=== PATIENT | female | born 1935 | race Caucasian/White ===

== ENCOUNTER 2019-03-29 09:15 | Inpatient (IN) | payer MEDICARE, OTHER ==
[~2019-03-29] VITALS: Ht 152.4 cm; Wt 58.0 kg
[2019-03-29] MEDS: CALCIUM/VITAMIN D 500 MG TAB PO SCH ×2 (09:00→23:57)
[~2019-03-29 09:15] MED LIST: AMLO5TAB2 PO; ASPI1TAB PO; LOSA100T PO; REST0.05 OU; TRIA1OI EXT; ULTR50TA PO
[2019-03-29] MEDS ORDERED: ONDANSETRON 4MG/2ML VIAL (J2405) IV ONE (09:30)
[2019-03-29] MEDS: MORPHINE 2 MG/ML 1ML VIAL (J2270) IV PRN ×4 (09:49→19:06)
--- NOTE | 2019-03-29 10:16 | REP ---
Chest x-ray: Single AP view. History: Trauma. Comparison study: April 20, 2013. Findings: Monitoring electrodes are seen. Mediastinum is not widened. There is no evidence of pneumothorax or hydrothorax. The pleural angles are sharp. Mitral annular calcification is observed. Heart size is borderline unchanged. A small azygos lobe is noted incidentally. There is diffuse osteopenia. Impression: No acute disease. Electronically Signed by Brenton Montgomery MD 03/29/2019 10:07 A
--- NOTE | 2019-03-29 10:17 | REP ---
Pelvis right hip: Three views. History: Trauma. Comparison right hip radiographs are from August 23, 2014. Findings: AP view of the pelvis demonstrates a intramedullary [place] and femoral neck pin in the left hip from previous injury. There is diffuse osteopenia. There is an old appearing fracture of the superior pubic ramus on the right. No acute pelvic fracture is appreciated. No sacral fracture is seen. Two views of the right hip demonstrate a comminuted intertrochanteric fracture of the right proximal femur in varus. There is associated soft-tissue swelling. Impression: Comminuted intertrochanteric fracture of the right proximal femur in varus. Diffuse osteoporosis. Old healed superior pubic ramus fracture on the right. Electronically Signed by Brenton Montgomery MD 03/29/2019 10:08 A
[2019-03-29] MEDS ORDERED: LOPE-39 PO (11:03)
[2019-03-29] MEDS ORDERED: REST0.05 OU (11:03)
[2019-03-29] MEDS ORDERED: AMIL5TAB4 PO (11:03)
[2019-03-29] MEDS ORDERED: LOSA50TA5 PO (11:03)
[2019-03-29 11:05] LABS: BASO % 0.3 % (0.0-1.0); EOS % 0.3 % (0.0-3.0); HEMATOCRIT 32.5 % (36.0-47.0); HEMOGLOBIN 10.4 g/dl (12.0-15.5); LYMPH # 0.6 10^3/uL (1.5-5.0); LYMPH % 10.9 % (24.0-44.0); MEAN CORPUSCULAR HEMOGLOBIN 32.3 pg (27.0-33.0); MEAN CORPUSCULAR VOLUME 100.9 fl (80.0-96.0); MONO # 0.3 10^3/uL (0.0-0.8); MONO % 5.6 % (0.0-5.0); NEUTROPHILS # 4.7 10^3/uL (1.5-8.5); PLATELET COUNT, AUTOMATED 412 10^3/uL (150-450); RED BLOOD COUNT 3.22 10^6/uL (4.00-5.40); WHITE BLOOD COUNT 5.8 10^3/uL (4.0-10.0)
[2019-03-29] MEDS ORDERED: NS 1,000 ML IV SCH (11:15)
[2019-03-29] MEDS ORDERED: MORPHINE 2 MG/ML 1ML VIAL (J2270) IV PRN (11:15)
[2019-03-29 11:17] LABS: INR 1.18; PROTHROMBIN TIME 14.7 SECONDS (11.8-14.0)
[2019-03-29] MEDS ORDERED: KCL 20MEQ IN D5/0.45NS 1000ML 1,000 ML IV SCH (11:30)
[2019-03-29] MEDS ORDERED: NORCO, ANEXSIA 5/325MG TABLET (HYDROcodone/ACETAMINOPHEN) PO PRN (11:30)
[2019-03-29] MEDS ORDERED: ACETAMINOPHEN TAB 650MG DOSE (2X325MG) PO PRN ×2 (11:30→23:00)
[2019-03-29] MEDS ORDERED: MOM 30ML SUSPENSION UDC PO PRN (11:30)
[2019-03-29 11:36] LABS: ALBUMIN 3.8 GM/DL (3.2-5.2); ALT/SGPT 16 U/L (12-78); BILIRUBIN,TOTAL 0.4 MG/DL (0.2-1.0); BLOOD UREA NITROGEN 36 MG/DL (7-18); CALCIUM LEVEL 8.8 MG/DL (8.8-10.2); CARBON DIOXIDE LEVEL 26 MEQ/L (21-32); CHLORIDE LEVEL 104 MEQ/L (98-107); CREATININE FOR GFR 1.12 MG/DL (0.55-1.30); GLOMERULAR FILTRATION RATE 49.2 (>32); GLUCOSE, FASTING 156 MG/DL (70-100); POTASSIUM SERUM 4.6 MEQ/L (3.5-5.1); SODIUM LEVEL 139 MEQ/L (136-145); TOTAL PROTEIN 6.4 GM/DL (6.4-8.2)
--- NOTE | 2019-03-29 12:39 | REP ---
Right femur: Two views. History: Trauma. Comparison right hip radiographs August 23, 2014. Findings: Radiographs are overexposed and the soft tissues are not a valuable. The lateral view does not allow visualization of the patella because of exposure factors. No distal femoral fracture is seen. There is advanced diffuse osteopenia. Electronically Signed by Brenton Montgomery MD 03/29/2019 12:31 P
[2019-03-29 12:51] VITALS: BP 133/66
--- NOTE | 2019-03-29 12:51 | CR.PDOC ---
General Date of Consultation: Mar 29, 2019 Attending Physician: JOYCE ZHENG MD Consultation REASON FOR CONSULTATION/CHIEF COMPLAINT: R hip fracture. HISTORY OF PRESENT ILLNESS: Patient is an 83 y/o female community ambulator with no assistive devices who sustained a mechanical fall from standing height resulting in immediate R hip pain and inability to bear weight. She has a significant past history of a L intertroch fracture treated with CMN 15 years ago. She has some persistent lateral sided hip pain but otherwise is independently functioning in all ADLs and lives alone on a large property which she maintains herself. She denies any antecedent hip pain, chest pain, shortness of breath, headache, or dizziness prior to her fall. ALLERGIES: Please see below. HOME MEDICATIONS: Please see below. PAST MEDICAL HISTORY: 1. Hypertension. 2. CVA. 3. Bowel obstruction PAST SURGICAL HISTORY: 1. L hip CMN per HPI 2. Hysterectomy 3. Bladder repair FAMILY HISTORY: non contributory SOCIAL HISTORY: lives alone. Independent in all ADLs. Non smoker. Retired. CONSTITUTIONAL: No fevers, chills, or night sweats. HEENT: + glasses CARDIOVASCULAR: No chest pain, palpitations. RESPIRATORY: No cough, wheeze. MUSCULOSKELETAL: R hip pain per HPI. GASTROINTESTINAL: No nausea, vomiting, diarrhea. NEUROLOGICAL: No headache, numbness, burning sensations. PHYSICAL EXAMINATION: VITAL SIGNS: Please see below. GENERAL APPEARANCE: Well nourished female, appears stated age, no acute distress. HEENT: Normocephalic, atraumatic. RESPIRATORY: Non labored breathing. CARDIOVASCULAR: 2+ DP/PT pulses, BCR all digits RLE. EXTREMITIES: Focused exam of the R hip demonstrates no open wounds or abrasions. The hip is held in a flexed, externally rotated position. Patient is able to flex/extend toes and ankle. NEUROLOGICAL: Sensation and motor intact in RLE femoral, tibial, sural, saphenous, SPN, DPN distribution. Radiographs: Plain radiographs of the pelvis, right hip and right femur demonstrate a displaced intertrochanteric femur fracture ASSESSMENT: 83 y/o female with a reverse obliquity R intertrochanteric femur fr acture PLAN: I had a long discussion with the patient about the natural history of her injury. The risks, benefits, indications, and alternatives of operative and nonoperative management were discussed and I recommended surgical management with R hip cephalomedullary nail fixation. The risks of infection, nerve/blood vessel injury, thromboembolic event, nonunion, malunion, and hardware failure w ere discussed and the patient expressed understanding and provided written informed consent for R hip open versus closed reduction and cephalomedullary nail fixation. I counseled the patient that I will be her operating surgeon but her follow up care will be conducted by [facility]. She expressed understanding with this arrangement and agreed to proceed. Surgery will be today pending clearance. -NPO -2g IV Ancef chief concierge to OR Vital Signs/I&O Vital Signs Date Time Temp Pulse Resp B/P (MAP) Pulse Ox O2 Delivery O2 Flow Rate FiO2 03/29/19 12:01 98.0 82 20 150/87 (108) 98 Nasal Cannula 2.0 Laboratory Data Labs 24H Laboratory Tests 2 03/29/19 10:17: Immature Granulocyte % (Auto) 0.9, Neutrophils (%) (Auto) 82.0H, Lymphocytes (%) (Auto) 10.9L, Monocytes (%) (Auto) 5.6H, Eosinophils (%) (Auto) 0.3, Basophils (%) (Auto) 0.3, Neutrophils # (Auto) 4.7, Lymphocytes # (Auto) 0.6L, Monocytes # (Auto) 0.3, Eosinophils # (Auto) 0.0, Basophils # (Auto) 0.0, Nucleated Red B lood Cells % (auto) 0.0, Prothrombin Time 14.7H, Prothromb Time International Ratio 1.18, Anion Gap 9, Glomerular Filtration Rate 49.2, Calcium Level 8.8, Total Bilirubin 0.4, Aspartate Amino Transf (AST/SGOT) 18, Alanine Aminotransferase (ALT/SGPT) 16, Alkaline Phosphatase 52, Total Protein 6.4, Al bumin 3.8, Albumin/Globulin Ratio 1.46 CBC/BMP Laboratory Tests 03/29/19 10:17 Allergies Coded Allergies: No Known Drug Allergies (Verified Allergy, Unknown, 03/29/19) latex (Verified Allergy, Unknown, unknown, 03/29/19) Home Medications Scheduled Amiloride HCl (Amiloride HCl) 5 Mg Tablet, 5 MG PO QHS, (Reported) Losartan/Hydrochlorothiazide (Losartan-Hctz 50-12.5 mg Tab) 1 Each Tablet, 1 TAB PO QHS, (Reported) Scheduled PRN Cyclosporine (Restasis) 0.05% [place], 1 DROP OU BID PRN for DRY EYES, (Reported) Loperamide HCl (Imodium A-D) 2 Mg Capsule, 2 MG PO QHS PRN for DIARRHEA, (Reported) JOYCE ZHENG MD Mar 29, 2019 12:49
--- NOTE | 2019-03-29 13:08 | HPE ---
DATE OF ADMISSION: 03/29/2019 TIME: 11:30 a.m. CHIEF COMPLAINT: Right hip pain following a fall. HISTORY OF PRESENT ILLNESS: Mrs. Spring is an 83-year-old woman who had gone out to light an outside stove and as she was returning back into her home she slipped and fell on her right side. She developed acute pain and was brought to the emergency room by ambulance for further evaluation. Imaging studies done in the ER indicate she has a right intertrochanteric hip fracture and was referred for admission to the hospitalist service. The patient is otherwise, quite healthy. She has a past medical history of hypertension, as well as chronic heart murmur. She denies having any chest discomfort, orthopnea, presyncopal symptoms or angina over the ensuing days or weeks. She has not had any orthopnea, PND, leg symptoms, nor lower extremity swelling. ALLERGIES: 1. LATEX which causes rash. HOME MEDICATIONS: - amiloride 5 mg at bedtime - cyclosporin 0.05% both eyes (OU) twice a day as needed for dry eyes - loperamide 2 mg at bedtime as needed for diarrhea - losartan hydrochlorothiazide 50/12.5 at bedtime PAST MEDICAL HISTORY: Notable for: Hypertension. Dry eyes. PAST SURGICAL HISTORY: Notable for: Left hip fracture approximately 12 years ago. Hysterectomy with bladder suspension in the past. SOCIAL HISTORY: Patient lives at home. She does not use alcohol, tobacco or illicit drugs. Her daughter is her medical power of estate planning attorney. Code status is FULL CODE. FAMILY HISTORY: Notable for leukemia and stroke. REVIEW OF SYSTEMS: 12 systems reviewed with the patient, otherwise negative except what is mentioned in the HPI. She has a chronic heart murmur but has not had any symptoms of increasing fatigue, lower extremity swelling or chest discomfort. She also has what appears to be psoriasis on her bilateral extensor surfaces of her upper extremities. PHYSICAL EXAMINATION: Temperature is 98.1, pulse is 86, respirations 16, blood pressure 189/77, O2 sat is 97% on room air. General: The patient is alert and oriented times three. She lying in a supine position. She is complaining of pain. Her daughter is at the bedside. Her skin is warm to touch without any visible rash or pallor or jaundice. Her head is atraumatic, normocephalic. Her pupils are symmetric, reactive to light. Oropharynx is clear without exudate, erythema or thrush. Neck is supple. No audible carotid bruits. Trachea is midline. No palpable thyroid gland tenderness. Heart S1/S2. She has a grade 3/6 systolic murmur. PMI is located at the fifth intercostal space at the MCL. Lung sounds are appreciated in the anterior and lateral lung trammell and are without any rales, wheezing or rhonchi. She has symmetric chest wall rise. Abdomen is scaphoid, nontender, nondistended in appearance. She has active bowel sounds. Extremities are without any significant cyanosis, clubbing or edema. Her right lower extremity is externally rotated and shortened compared with her left lower extremity. She has palpable left hip tenderness. RELEVANT LABS: Coags are normal with an INR of 1.18, PT 14.7. White count is 5.8, hemoglobin 10.4, hematocrit 32.5, platelet count 412,000. Sodium 139, potassium 4.6, chloride 104, bicarb 26, anion gap is 9, BUN 36, creatinine 1.1, glucose 156, calcium is 8.8, total bilirubin is 0.4, AST is 18, ALT is 16, alkaline phosphatase 52, total protein 6.4, albumin is 3.8. EKG showed a normal sinus rhythm. IMAGING: Chest x-ray shows no acute disease. Hip x-ray shows comminuted intertrochanteric fracture of the right proximal femur in varus, diffuse osteoporosis, old healed superior pubic ramus fracture on the right. IMPRESSION: 1. Status post ground level fall with acute right intertrochanteric hip fracture. 2. Macrocytic anemia. 3. Hypertension. 4. Osteoporosis. 5. Chronic heart murmur. PLAN: The patient will be admitted to the general medical floor. From my standpoint the patient has low risk for intended non-elective for procedure and is medically optimized and may proceed with the surgery. She will continue on amiloride as well as losartan. Will hold her hydrochlorothiazide for now as it appears like she is a little dehydrated. The patient does have some macrocytic anemia and with her fall will check B12 and folate levels to ensure that she has no neuropathy associated with mineral deficits. The patient will be placed on IV morphine and [place] for pain control and will have a Cramer catheter placed. She will be started on calcium with vitamin D after we check vitamin D levels, based on imaging, which shows that she has osteoporosis. The patient will be a FULL CODE. She will be placed on sequential compression devices (SCD) and thromboembolic deterrent stockings (TEDS) for deep vein thrombosis (DVT) prophylaxis now. Postoperative DVT prophylaxis decision making will be left up to the orthopedic service. Dr. Hutton of orthopedics has been consulted by the ED and will see the patient. I will keep the patient nothing by mouth as there is a possibility that she could go to the OR later today. If not then we could start her on a low salt diet and keep her nothing by mouth after midnight for tomorrow if the schedule changes for her surgery.
[2019-03-29 14:00] VITALS: BP 131/64
[2019-03-29] MEDS: D5W/0.45% SODIUM CHLORIDE 1,000 ML IV SCH ×2 (15:37→23:41)
[2019-03-29 19:48] VITALS: BP 135/63
[2019-03-29] MEDS ORDERED: ceFAZolin SOD 2 GM in IV 1 EA IV SCH (20:00)
[2019-03-29] MEDS ORDERED: ceFAZolin 1GM INJ (J0690 PER 500MG) As Ordered ONE (20:25)
[2019-03-29] MEDS ORDERED: ROCURONIUM BROMIDE 50 MG/5 ML VIAL As Ordered ONE (20:30)
[2019-03-29] MEDS ORDERED: LIDOCAINE 2% INJ 100 MG/5 ML SDV (FOR ANES.) As Ordered ONE (20:30)
[2019-03-29] MEDS ORDERED: propofoL 200 MG/20 ML VIAL As Ordered ONE (20:30)
[2019-03-29] MEDS ORDERED: fentaNYL 100 MCG/2 ML INJECTION (J3010) As Ordered ONE (20:32)
[2019-03-29] MEDS ORDERED: dexameTHASONE 4 MG/ML 1ML VIAL (J1100) As Ordered ONE (20:32)
[2019-03-29] MEDS ORDERED: ONDANSETRON 4MG/2ML VIAL (J2405) As Ordered ONE (20:32)
[2019-03-29] MEDS ORDERED: ceFAZolin 2 GM/D5W 50 ML IV BAG (J0690 PER 500MG) As Ordered ONE (20:56)
[2019-03-29] MEDS ORDERED: aMILoride 5 MG TAB PO SCH (21:00)
[2019-03-29] MEDS ORDERED: ACETAMINOPHEN 1000MG 100ML IV BTL (OFIRMEV) (J0131 PER 10MG) As Ordered ONE (21:18)
[2019-03-29] MEDS ORDERED: PHENYLephrine HCL 500 MCG/5 ML (100MCG/ML) SYRINGE (J2370) As Ordered ONE (21:19)
[2019-03-29] MEDS ORDERED: SUGAMMADEX SODIUM 500 MG/5 ML VIAL (BRIDION) As Ordered ONE (21:33)
[2019-03-29] MEDS ORDERED: VASOPRESSIN INJ 20 UNITS/ML VIAL As Ordered ONE (22:18)
[2019-03-29] MEDS ORDERED: traMADol 50 MG TAB PO PRN (23:00)
[2019-03-29 23:35] VITALS: BP 118/53
[2019-03-29] MEDS: DOCUSATE SODIUM 100 MG CAP PO SCH (23:57)
[2019-03-29 23:59] VITALS: BP 119/52
[2019-03-30] VITALS (12 sets, daily range): BP systolic 109–138; BP diastolic 47–90
[2019-03-30] MEDS ORDERED: traMADol 50 MG TAB PO PRN (00:45)
[2019-03-30] MEDS ORDERED: ceFAZolin SOD 2 GM in IV 1 EA IV ONE (06:00)
[2019-03-30] MEDS: ceFAZolin SOD 2 GM in IV 1 EA IV SCH ×2 (06:18→15:27)
--- NOTE | 2019-03-30 06:32 | REP ---
Right femur four views: There is gamma nail fixation of the right hip and femur with the fracture and hardware are in satisfactory positions alignment. The Electronically Signed by Ten Trevizo MD 03/30/2019 06:25 A
--- NOTE | 2019-03-30 06:32 | REP ---
Right hip intraoperative fluoroscopic views: A series of 10 intraoperative fluoroscopic views are performed during internal fixation of the right hip. The final films demonstrate gamma nail fixation of the right hip and femur with the fracture and hardware are in satisfactory positions alignment. Electronically Signed by Ten Trevizo MD 03/30/2019 06:24 A
[2019-03-30 07:13] LABS: ALBUMIN 2.8 GM/DL (3.2-5.2); BILIRUBIN,TOTAL 0.4 MG/DL (0.2-1.0); CALCIUM LEVEL 8.6 MG/DL (8.8-10.2); CREATININE FOR GFR 1.28 MG/DL (0.55-1.30); GLOMERULAR FILTRATION RATE 42.2 (>32); POTASSIUM SERUM 5.2 MEQ/L (3.5-5.1)
--- NOTE | 2019-03-30 07:45 | IPNPDOC ---
Subjective Date Seen The patient was seen on 03/30/19. Subjective Chief Complaint/HPI No acute events following surgery. Pain controlled, mostly occurs with activity. Not hungry this morning. Megan is motivated to work with PT Objective Physical Examination General Exam: Positive: Alert, No Acute Distress Eye Exam: Positive: Conjunctiva & lids normal; Negative: Sclera icteric ENT Exam: Positive: Atraumatic, Mucous membr. moist/pink, Pharynx Normal Neck Exam: Positive: Supple; Negative: JVD, thyromegaly Chest Exam: Positive: Clear to auscultation, Normal air movement Heart Exam: Positive: Rate Normal, Regular Rhythm, Normal S1, Normal S2, Murmurs (chronic 3/6 systolic murmur unchanged); Negative: Rubs Abdomen Exam: Positive: Normal bowel sounds, Soft; Negative: Tenderness, Hepatospenomegaly Extremity Exam: Positive: Normal pulses; Negative: Clubbing, Cyanosis, Edema Skin Exam: Positive: Nl turgor and temperature (operative wound c/d/i); Negative: Rash, Breakdown Neuro Exam: Positive: Normal Speech Psych Exam: Positive: Mental status NL, Mood NL Assessment /Plan Assessment # POD # 1 s/p right hip fx repair - mgmt per ortho - xarelto 10 mg daily for DVT prophylaxis - PT/OT - discharge planning - check CBC this am # HTN - controlled on home med # Chronic systolic murmur - stable Plan/VTE VTE Prophylaxis Ordered?: Yes VTE Exclusion Mechanical Proph: N/A:VTE Prophy Ordered VTE Exclusion Pharmacological: N/A:VTE Prophy Ordered VS, I&O, 24H, Fishbone Vital Signs/I&O Vital Signs Date Time Temp Pulse Resp B/P (MAP) Pulse Ox O2 Delivery O2 Flow Rate FiO2 03/30/19 06:54 96.3 89 18 111/48 (69) 98 Nasal Cannula 2.0 I&O- Last 24 Hours up to 6 AM 03/30/19 06:00 Intake Total 2680 ml Output Total 1075 ml Balance 1605 ml Laboratory Data 24H LABS Laboratory Tests 2 03/29/19 10:17: Immature Granulocyte % (Auto) 0.9, Neutrophils (%) (Auto) 82.0H, Lymphocytes (%) (Auto) 10.9L, Monocytes (%) (Auto) 5.6H, Eosinophils (%) (Auto) 0.3, Basophils (%) (Auto) 0.3, Neutrophils # (Auto) 4.7, Lymphocytes # (Auto) 0.6L, Monocytes # (Auto) 0.3, Eosinophils # (Auto) 0.0, Basophils # (Auto) 0.0, Nucleated Red Blood Cells % (auto) 0.0, Prothrombin Time 14.7H, Prothromb Time International Ratio 1.18, Anion Gap 9, Glomerular Filtration Rate 49.2, Calcium Level 8.8, Total Bilirubin 0.4, Aspartate Amino Transf (AST/SGOT) 18, Alanine Aminotransferase (ALT/SGPT) 16, Alkaline Phosphatase 52, Total Protein 6.4, Albumin 3.8, Albumin/Globulin Ratio 1.46 03/30/19 05:51: Anion Gap 6L, Glomerular Filtration Rate 42.2, Calcium Level 8.6L, Total Bilirubin 0.4, Aspartate Amino Transf (AST/SGOT) 15, Alanine Aminotransferase (ALT/SGPT) 17, Alkaline Phosphatase 41L, Total Protein 5.0#L, Albumin 2.8#L, Albumin/Globulin Ratio 1.27 CBC/BMP Laboratory Tests 03/29/19 10:17 03/30/19 05:51 NIRMAL LANG MD Mar 30, 2019 07:43
[2019-03-30] MEDS ORDERED: XARE10TA PO (07:47)
[2019-03-30] MEDS ORDERED: ACET-683 PO (07:47)
[2019-03-30] MEDS ORDERED: TRAM50TA2 PO (07:47)
[2019-03-30 08:02] LABS: HEMATOCRIT 23.7 % (36.0-47.0); MEAN CORPUSCULAR HEMOGLOBIN 32.5 pg (27.0-33.0); MEAN CORPUSCULAR HGB CONC 31.6 g/dl (32.0-36.5); MEAN CORPUSCULAR VOLUME 102.6 fl (80.0-96.0); PLATELET COUNT, AUTOMATED 439 10^3/uL (150-450); RED BLOOD COUNT 2.31 10^6/uL (4.00-5.40); WHITE BLOOD COUNT 4.8 10^3/uL (4.0-10.0)
[2019-03-30 08:08] LABS: HEMOGLOBIN 7.5 g/dl (12.0-15.5)
--- NOTE | 2019-03-30 08:10 | RO ---
DATE OF PROCEDURE: 03/29/2019 PREOPERATIVE DIAGNOSIS: Right reverse obliquity intertrochanteric femur fracture. POSTOPERATIVE DIAGNOSIS: Right reverse obliquity intertrochanteric femur fracture. PROCEDURE PERFORMED: Right proximal femur open reduction cephalomedullary nail fixation. SURGEON: Dr. Keith Hutton HIM ANALYST: None. ANESTHESIA PROVIDER: Dr. Garcia ANESTHESIA: General endotracheal anesthesia. ESTIMATED BLOOD LOSS: 250 mL. ANTIBIOTICS: 2 grams Ancef given within 1 hour of incision. IMPLANTS USED: Synthes TFN-ADVANCED 11 mm x 380 mm nail with a 95 mm helical blade and 52 and 48 mm x 5mm interlocking distal interlocking screws. MATERIALS SENT TO LAB: None COMPLICATIONS: None. INDICATIONS FOR PROCEDURE: Megan Spring is an 83-year-old community ambulator with no assistive devices who sustained a mechanical fall from standing height resulting in a displaced reverse obliquity intertrochanteric femur fracture. She was admitted to the hospitalist service for medical optimization and was medically optimized for surgery. I discussed with her the nature of her injury and the risks, benefits, indications, and alternatives of operative versus nonoperative management and recommended right hip cephalomedullary nail fixation. I counseled her that I will be her operating surgeon. Her followup care will be conducted by [facility]. She expressed understanding of this arrangement and provided written informed consent for right proximal femur open versus closed reduction and internal fixation. INTRAOPERATIVE FINDINGS: Reverse obliquity intertrochanteric femur fracture that was anatomically reduced and stable after fixation. DESCRIPTION OF PROCEDURE: The patient was positively identified in the preop holding area where the surgical site was marked. She was then brought to the operating room where she was placed under general endotracheal anesthesia. She was positioned supine on the fracture table with all bony prominences appropriately padded. SCD was placed on the nonoperative extremity for DVT prophylaxis. I obtained a provisional reduction using the fracture table. After confirming reduction using C-arm fluoroscopy, she was then prepped and draped in the usual sterile fashion. A final time out was performed. I made a 4 cm incision proximal and posterior to the tip of the greater trochanter. I dissected through skin and subcutaneous tissue. I introduced the 3.2 mm guidewire on the tip of the greater trochanter and centered on lateral imaging and advanced it to the level of the lesser trochanter. I then made an accessory lateral incision and introduced a bone hook and a ball spike pusher to obtain anatomic reduction of fracture prior to opening reaming. While the fracture reduction was maintained, I introduced the opening reamer to the level of the lesser trochanter. I then removed the reamer and introduced the ball-tip guidewire down to the level of the superior pole of the patella centered on the knee in AP and lateral fluoroscopic imaging. I then measured the length of the device and elected to place a 380 mm nail. I made a single pass with the 12.5 mm end cutting reamer, followed by placement of the nail to an appropriate depth. Then using the accessory lateral incision that was used for the reduction maneuver, I introduced the guide for the helical blade. Another additional 3.2 mm guidewire was placed centered on the femoral neck on AP and lateral fluoroscopic imaging for placement of the helical blade. It was then measured and elected to place a 95 mm helical blade. I reamed and inserted the blade in standard fashion. I confirmed that there was no intra-articular penetration of implants. I then proceeded to lock the nail to create a fixed angle construct given the reverse oblique nature of the fracture. I then placed two distal interlocking screws using standard perfect [place] technique through individual stab incisions. After this was completed, I took final images of the knee and hip confirming adequate placement of all hardware and anatomic reduction of the fracture. After this was completed, final images were taken. I then thoroughly irrigated the wounds with just normal saline and they were closed in layers. The proximal two incisions were closed with #2-0 Vicryl for the subcutaneous layer in a buried interrupted fashion and lorenzo for the skin. The stab incisions for the distal interlocking screws were closed with lorenzo. Sterile dressings were applied and this ended the procedure. I was present and scrubbed in for all portions of the case. POSTOPERATIVE PLAN: She will return to the hospital floor. She will ne weightbearing as tolerated to the right lower extremity. She will be on Xarelto for DVT prophylaxis and she will be discharged by the hospitalist service when criteria are met. TYRON
[2019-03-30] MEDS: MIRALAX *UNIT DOSE* 17GM PACKET PO SCH (08:49)
[2019-03-30] MEDS: DOCUSATE SODIUM 100 MG CAP PO SCH ×2 (08:49→22:06)
[2019-03-30] MEDS: CALCIUM/VITAMIN D 500 MG TAB PO SCH ×2 (08:49→22:06)
[2019-03-30] MEDS ORDERED: ACETAMINOPHEN TAB 650MG DOSE (2X325MG) PO ONE (09:00)
[2019-03-30] MEDS ORDERED: diphenhydrAMINE 25 MG CAP PO ONE (09:00)
[2019-03-30 11:01] LABS: FOLATE > 24.0 NG/ML (>5.4); TOTAL 25(OH) VITAMIN D 38.9 NG/ML (30.0-100.0); VITAMIN B12 LEVEL 633 PG/ML (247-911)
[2019-03-30] MEDS: NS 1,000 ML IV SCH (15:27)
[2019-03-30] MEDS ORDERED: RIVAROXABAN 10 MG TAB (XARELTO) PO SCH (18:00)
[2019-03-30 18:17] LABS: HEMATOCRIT 28.7 % (36.0-47.0); HEMOGLOBIN 9.3 g/dl (12.0-15.5); MEAN CORPUSCULAR HEMOGLOBIN 31.5 pg (27.0-33.0); MEAN CORPUSCULAR HGB CONC 32.4 g/dl (32.0-36.5); MEAN CORPUSCULAR VOLUME 97.3 fl (80.0-96.0); PLATELET COUNT, AUTOMATED 416 10^3/uL (150-450); RED BLOOD COUNT 2.95 10^6/uL (4.00-5.40); WHITE BLOOD COUNT 6.1 10^3/uL (4.0-10.0)
[2019-03-30] MEDS ORDERED: LOSARTAN 50 MG TAB PO SCH (21:00)
[2019-03-31] MEDS: traMADol 50 MG TAB PO PRN ×2 (01:18→09:04)
[2019-03-31 02:09] LABS: HEMATOCRIT 25.9 % (36.0-47.0); HEMOGLOBIN 8.5 g/dl (12.0-15.5); MEAN CORPUSCULAR HEMOGLOBIN 31.3 pg (27.0-33.0); MEAN CORPUSCULAR HGB CONC 32.8 g/dl (32.0-36.5); MEAN CORPUSCULAR VOLUME 95.2 fl (80.0-96.0); PLATELET COUNT, AUTOMATED 327 10^3/uL (150-450); RED BLOOD COUNT 2.72 10^6/uL (4.00-5.40); WHITE BLOOD COUNT 5.3 10^3/uL (4.0-10.0)
--- NOTE | 2019-03-31 05:54 | ECGEPIP ---
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
[2019-03-31 06:31] LABS: HEMOGLOBIN A1c 5.1 %
[2019-03-31 06:39] LABS: CALCIUM LEVEL 8.7 MG/DL (8.8-10.2); CREATININE FOR GFR 1.25 MG/DL (0.55-1.30); GLOMERULAR FILTRATION RATE 43.4 (>32); POTASSIUM SERUM 4.9 MEQ/L (3.5-5.1)
[2019-03-31 06:41] VITALS: BP 135/56
[2019-03-31] MEDS ORDERED: MS C15TA8 PO (08:33)
[2019-03-31] MEDS ORDERED: MORPHINE 15 MG SA TAB PO SCH (09:00)
[2019-03-31] MEDS: MIRALAX *UNIT DOSE* 17GM PACKET PO SCH (09:05)
[2019-03-31] MEDS: DOCUSATE SODIUM 100 MG CAP PO SCH (09:05)
[2019-03-31] MEDS: CALCIUM/VITAMIN D 500 MG TAB PO SCH (09:05)
[2019-03-31] MEDS: NS 1,000 ML IV SCH (09:05)
[2019-03-31 10:03] LABS: HEMATOCRIT 26.6 % (36.0-47.0); HEMOGLOBIN 8.7 g/dl (12.0-15.5); MEAN CORPUSCULAR HEMOGLOBIN 31.4 pg (27.0-33.0); MEAN CORPUSCULAR HGB CONC 32.7 g/dl (32.0-36.5); PLATELET COUNT, AUTOMATED 362 10^3/uL (150-450); RED BLOOD COUNT 2.77 10^6/uL (4.00-5.40); WHITE BLOOD COUNT 5.4 10^3/uL (4.0-10.0)
[2019-03-31] MEDS ORDERED: ANAG0.5C2 PO (17:13)
--- NOTE | 2019-04-01 10:05 | DSES ---
DATE OF ADMISSION: 03/29/2019 DATE OF DISCHARGE: 03/31/2019 PRINCIPAL EXAMINER: Dr. Hutton, orthopedic surgery. PROCEDURES DURING ADMISSION: Right intramedullary rodding of the femur on 03/30/2019. DISCHARGE DIAGNOSES: 1. Ground level fall. 2. Acute right intertrochanteric hip fracture. 3. Macrocytic anemia. 4. Hypertension. 5. Osteoporosis. 6. Chronic heart murmur. DISCHARGE MEDICATIONS: - acetaminophen 1 gram by mouth every 8 hours as needed for back pain - morphine 15 mg by mouth twice a day as needed, maximum daily dose of two tablets daily - Xarelto 10 mg daily - Tramadol one to two tablets every 4 hours as needed for pain - amiloride 5 mg at night - Restasis one drop OU twice a day as needed for dry eyes - loperamide 2 mg at night as needed for diarrhea - losartan/hydrochlorothiazide 50/12.5 mg one tablet at night HOSPITAL COURSE: This is an 83-year-old female who had a ground level fall at home sustaining a right hip fracture, status post intramedullary rodding by Dr. Hutton, orthopedic surgery. The patient was cleared for surgery with postoperative prophylaxis given using Xarelto. The patient had bowel regimen and pain was controlled on Ultram and [place]. She was discharged in stable condition to acute rehabilitation unit. PHYSICAL EXAMINATION: On discharge: VITAL SIGNS: Temperature 98, pulse 103, respiratory rate 15, blood pressure 135/56, 94% on room air. GENERAL: The patient is in no respiratory distress. Able to speak in full sentences. LUNGS: Clear to auscultation. No wheezing, rales or rhonchi. HEART: S1, S2. Sinus rhythm. 3/6 systolic ejection murmur. ABDOMEN: Soft, nontender, nondistended. Positive bowel sounds times four quadrants. EXTREMITIES: Dorsalis pedis and posterior tibialis intact. Postoperative right hip. SKIN: Warm, dry, well perfused, pink in color. LABORATORY DATA: On discharge: White count 5.4, hemoglobin 8.7, hematocrit 26.6, platelet count 362. Sodium 134, potassium 4.9, chloride 103, bicarbonate 25, BUN 32, creatinine 1.25, glucose 130, A1/c of 5.1. IMAGING STUDIES: Femoral x-ray on 03/29/2019 showed Gamma nail fixation of the right hip and femur with hardware seen in satisfactory alignment. Hip x-ray on 03/29/2019 hardware in satisfactory position, Gamma nail fixation of right hip and femur fracture and hardware. Chest x-ray on 03/29/2019 showed no acute disease. Time spent on discharge: 30 minutes.
== END 2019-03-31 14:35 | DRG 481 ==
LOC: EDBD 09:15 → M ED 09:15 → M ED INP 11:17 → ENRESERV 11:45 → M MS5PR 12:37 → M ED INP 15:11 → M MS5PR 15:16
PROVIDERS: ADMIT Internal Medicine; ATTEND General Practice
PROC: 0QS604Z Reposition Right Upper Femur with Internal Fixation Device, Open Approach (ICD-10-PCS; principal; 2019-03-29 19:00)
DX: S72.141A Displaced intertrochanteric fracture of right femur, initial encounter for closed fracture (principal); D69.3 Immune thrombocytopenic purpura; D62 Acute posthemorrhagic anemia; Z91.040 Latex allergy status; Z79.899 Other long term (current) drug therapy; I10 Essential (primary) hypertension; Z90.79 Acquired absence of other genital organ(s); D53.9 Nutritional anemia, unspecified; M81.0 Age-related osteoporosis without current pathological fracture; R01.1 Cardiac murmur, unspecified; W01.0XXA Fall on same level from slipping, tripping and stumbling without subsequent striking against object, initial encounter; Y92.009 Unspecified place in unspecified non-institutional (private) residence as the place of occurrence of the external cause; Z79.01 Long term (current) use of anticoagulants; E87.5 Hyperkalemia

== ENCOUNTER 2019-03-31 11:10 | Inpatient (IN) | payer MEDICARE ==
[~2019-03-31] VITALS: Ht 167.6 cm; Wt 62.8 kg
[~2019-03-31 11:10] MED LIST changes: +ACET-683 PO; +AMIL5TAB4 PO; +LOPE-39 PO; +LOSA50TA5 PO; +MS C15TA8 PO; +TRAM50TA2 PO; +XARE10TA PO
[2019-03-31 14:40] VITALS: BP 157/69
[2019-03-31] MEDS ORDERED: traMADol 50 MG TAB PO PRN ×2 (16:30→21:00)
[2019-03-31] MEDS ORDERED: MOM 30ML SUSPENSION UDC PO PRN (16:30)
[2019-03-31] MEDS: RIVAROXABAN 10 MG TAB (XARELTO) PO SCH (17:13)
[2019-03-31] MEDS ORDERED: ANAG0.5C2 PO (17:13)
[2019-03-31] MEDS ORDERED: PILL CUTTER 1 EACH XX PRN (17:30)
[2019-03-31 20:00] VITALS: BP 149/65
[2019-03-31] MEDS: MORPHINE 15 MG SA TAB PO SCH (21:00)
[2019-03-31] MEDS: LIDOCAINE 5% (LIDODERM) PATCH TD SCH (21:14)
[2019-03-31] MEDS: OYSTER SHELL CALCIUM 500 MG TAB PO SCH (21:14)
[2019-03-31] MEDS: ACETAMINOPHEN 500 MG TAB PO SCH (21:15)
[2019-03-31] MEDS: DOCUSATE SODIUM 100 MG CAP PO SCH (21:15)
[2019-03-31] MEDS: SENNA 8.6 MG TAB (SENOKOT) PO SCH (21:15)
[2019-04-01 06:00] VITALS: BP 149/66
[2019-04-01 07:26] LABS: BASO % 0.3 % (0.0-1.0); EOS # 0.4 10^3/uL (0.0-0.5); HEMOGLOBIN 9.1 g/dl (12.0-15.5); LYMPH # 1.4 10^3/uL (1.5-5.0); LYMPH % 23.7 % (24.0-44.0); MEAN CORPUSCULAR HEMOGLOBIN 32.3 pg (27.0-33.0); MEAN CORPUSCULAR HGB CONC 33.7 g/dl (32.0-36.5); MEAN CORPUSCULAR VOLUME 95.7 fl (80.0-96.0); MONO # 0.4 10^3/uL (0.0-0.8); MONO % 6.9 % (0.0-5.0); NEUTROPHILS # 3.7 10^3/uL (1.5-8.5); NEUTROPHILS % 62.8 % (36.0-66.0); PLATELET COUNT, AUTOMATED 453 10^3/uL (150-450); RED BLOOD COUNT 2.82 10^6/uL (4.00-5.40); WHITE BLOOD COUNT 5.8 10^3/uL (4.0-10.0)
[2019-04-01 08:00] LABS: ALBUMIN 2.8 GM/DL (3.2-5.2); ALT/SGPT 13 U/L (12-78); BILIRUBIN,TOTAL 0.8 MG/DL (0.2-1.0); BLOOD UREA NITROGEN 22 MG/DL (7-18); CALCIUM LEVEL 8.7 MG/DL (8.8-10.2); CARBON DIOXIDE LEVEL 28 MEQ/L (21-32); CHLORIDE LEVEL 101 MEQ/L (98-107); CREATININE FOR GFR 0.93 MG/DL (0.55-1.30); GLOMERULAR FILTRATION RATE > 60.0 (>32); GLUCOSE, FASTING 115 MG/DL (70-100); POTASSIUM SERUM 4.6 MEQ/L (3.5-5.1); SODIUM LEVEL 135 MEQ/L (136-145); TOTAL PROTEIN 5.9 GM/DL (6.4-8.2)
[2019-04-01] MEDS: OYSTER SHELL CALCIUM 500 MG TAB PO SCH ×2 (08:41→21:30)
[2019-04-01] MEDS: DOCUSATE SODIUM 100 MG CAP PO SCH ×2 (08:41→21:29)
[2019-04-01] MEDS: MORPHINE 15 MG SA TAB PO SCH (08:41)
[2019-04-01] MEDS: hydroCHLOROthiazide 25 MG TAB PO SCH (08:41)
[2019-04-01] MEDS: ACETAMINOPHEN 500 MG TAB PO SCH ×3 (08:41→21:28)
[2019-04-01] MEDS: PANTOPRAZOLE 40MG TAB (PROTONIX) PO SCH (08:41)
[2019-04-01] MEDS: **NOTE PATIENT COMMENT** MISC XX SCH (08:42)
[2019-04-01] MEDS: LOSARTAN 25 MG TAB PO SCH (08:42)
[2019-04-01] MEDS ORDERED: aMILoride 5 MG TAB PO SCH (09:00)
[2019-04-01] MEDS ORDERED: oxyCODONE 5MG TAB PO PRN (11:15)
[2019-04-01] MEDS: ONDANSETRON 4 MG ORAL DISINTEGRATING TAB (Q0162 PER 1MG) PO PRN (11:41)
[2019-04-01] MEDS: METOPROLOL TART 12.5 MG PER 1/2 TAB PO SCH ×3 (11:41→21:27)
[2019-04-01] MEDS: oxyCODONE 5MG TAB PO SCH ×3 (11:43→21:29)
[2019-04-01 14:00] VITALS: BP 140/63
--- NOTE | 2019-04-01 14:39 | HPEPDOC ---
Software Developer Intern Note DATE OF ADMISSION:03/31/19 DATE OF SERVICE: 03/31/19 TIME OF ADMISSION: Please refer to physician's admission order. SOURCE OF ADMISSION INFORMATION: [facility] records and patient CHIEF COMPLAINT: hip fracture HISTORY OF PRESENT ILLNESS: 83F pmh HTN, heart murmur, thrombocythemia, left hip surgery 2006 who fell at home onto her right side and presented to [facility] ED on 03-29-19 with difficulty walking. Hip Xray showed, Comminuted intertrochanteric fracture of the right proximal femur in varus. Diffuse osteoporosis. Old healed superior pubic ramus fracture on the right. She was evaluated by orthopedics who performed an ORIF on 03-29-19 with post-op anemia requiring blood transfusion. Patient had considerable pain post-operatively and was started on long acting Morphine. She was evaluated by therapy, found to be well below her prior level of function and deemed appropriate for discharge to ARU on 03-31-19. On initial eval patient reports she is constipated, although usually she takes Imodium for chronic loose stools. She also reports she does not take Amiloride, but instead takes Anagrelide for her thrombocythemia. She is concerned about having any pain and is hoping to take pain medication around the clock like she did with her hip surgery in 2006. She expressed understanding that there was no guarantee she would have no pain, that she would need to work through some of it in order to get up functioning safely. REVIEW OF SYSTEMS: The following is a completed review of systems and has been reviewed. Review of systems otherwise unremarkable. PAIN: Patient self reports right hip pain EYES: No recent vision changes EARS, NOSE, & THROAT: No throat pain, or dysphagia, or rhinorrhea CARDIOVASCULAR: Denies chest pain or palpitations PULMONARY: Denies shortness of breath GASTROINTESTINAL: + constipation GENITOURINARY: denies dysuria MUSCULOSKELETAL: right hip fracture NEUROLOGICAL:no focal tremor or seizure activity HEMATOLOGICAL: +thrombocythemia SKIN: right hip incision PSYCHIATRIC: Unremarkable All other review of systems found to be negative. PAST MEDICAL HISTORY: as per HPI PAST SURGICAL HISTORY: per HPI and Hysterectomy with bladder suspension ALLERGIES: Please see below. MEDICATIONS: Please see below. FAMILY HISTORY: Leukemia and stroke SOCIAL HISTORY: no etoh/illicit drugs/smoking DIET: low sodium PHYSICAL EXAMINATION: VITAL SIGNS: Please see below. GENERAL: Pleasant and cooperative. No acute distress. thin, +sedated HEENT: PERRL. Extraocular movements intact. Clear conjunctiva CARDIOVASCULAR: Regular rate and rhythm. +systolic murmur, rubs, or gallops LUNGS: Clear to auscultation bilaterally. No wheezes. No rhonchi ABDOMEN: Soft, nontender, nondistended. Positive bowel sounds. Normal active bowel sounds NEUROLOGICAL: Alert and oriented times three. Cranial nerves II through XII grossly intact. Sensation grossly intact EXTREMITIES: 5\5 strength bilateral upper extremities. 5\5 strength right ankle PF, DF and EHL extension (limited due to surgery). 5/5 strength in left lower extremity. (-) Homans bilat (+) RLE edema SKIN: right hip incision with scant serous drainage, mild swelling, no induration LABORATORY DATA: Please see below. IMAGING: Imaging documentation personally reviewed by record FUNCTIONAL STATUS: Premorbid: Independent with all activities of daily life as well as mobility On Admission: CG x 2ft ambulating with RW, Min-Mod for functional transfers, dressing, bed mobility GOALS: [place] ambulating community distances, stairs, functional transfers, dressing, bathing, ASSESSMENT:83-year-old F with past medical history of HTN and thrombocythemia who presents status post fall with right hip fracture PLAN: 1. Rehab:- PT/OT advance gait and ADl training, strengthen/stretch/maintain ROM all 4 limbs 2. Neuro: no known hx 3. Cardiac: HTN c/u losartan and HCTZ, patient with hyperkalemia on inpatient side, will lower losartan dosing and icrease HCTZ for optimal BP control- medicine consulted to assist in management -+systolic murmur, patient without recent ECHO on file and no close cardiology follow-up- will refer on d/c 4. Resp: encourage incentive spirometry and monitor for infection 5. Heme: hx of thrombocythemia- med rec error recognized and corrected with pharmacy, patient is NOT on Amiloride (did not receive this medication at any time during hospital stay), but has been on Anagrelide, patient's family will bring in this medication -post-op anemia improved s/p transfusion, monitor for further blood loss 6. GI ppx: protonix 7. DVT ppx: Xarelto 8. Ortho: s/p right hip ORIF, WBAT- consulted to assist in management 9. Pain: c/u morphine 15mg BID, tramadol 25mg q8h prn pain (hold for sedation) 10. Dispo: TBD POST ADMISSION PHYSICIAN EVALUATION: Medical and functional status: Description of medical status, medical assessment: As above. Rehabilitation diagnosis and current and prior cold morbid medical conditions as above. Risk of complications and plans to mitigate them as above. Description of functional status current status is as above. Prior status as above. Status compared to preadmission: There are no clinically significant differences between the patient's current status and the information described on the preadmission screening document. Treatment plan anticipated: Treatment plan is as described above. Required disciplines including physical therapy, occupational therapy, others as noted above. Intensity of services:3 hours a day, 6 days a week. Special considerations: There are no specific special or safety considerations that would likely preclude immediate implementation of an intensive rehabilitation program or subsequently influence the plan of care ATTESTATION: Considering all the information above, it is my best judgment that this patient requires intensive rehabilitation therapy as described above and an inpatient hospital environment due to the complexity of nursing, medical, and rehabilitation needs required by the patient. Furthermore, this patient can reasonably be expected to participate in an benefit from an inpatient rehabilitation stay with an interdisciplinary team approach to the delivery of rehabilitation care under the direction and supervision of rehabilitation physician PROGNOSIS: Excellent ESTIMATED LENGTH OF STAY:14-18 days. PROJECTED DISCHARGE DESTINATION: Home with family support and any durable medical equipment required to increase functional safety and mobility. TIME SPENT COUNSELING AND COORDINATING INITIAL CARE: Greater than 70 minutes. Vital Signs Vital Sign - Last 24 Hours 03/31/19 03/31/19 03/31/19 04/01/19 14:40 20:00 21:00 02:50 Temp 98.5 98.4 Pulse 104 104 Resp 20 18 16 16 B/P (MAP) 157/69 (98) 149/65 (93) Pulse Ox 94 94 O2 Delivery Room Air Room Air 04/01/19 04/01/19 04/01/19 04/01/19 03:22 06:00 08:41 11:43 Temp 97.9 Pulse 103 Resp 18 20 16 16 B/P (MAP) 149/66 (93) Pulse Ox 95 O2 Delivery Room Air 04/01/19 12:25 Resp 18 Laboratory Data CBC/BMP Laboratory Tests 04/01/19 06:52 Labs 24H Laboratory Tests 2 04/01/19 06:52: Immature Granulocyte % (Auto) 0.3, Neutrophils (%) (Auto) 62.8, Lymphocytes (%) (Auto) 23.7L, Monocytes (%) (Auto) 6.9H, Eosinophils (%) (Auto) 6.0H, Basophils (%) (Auto) 0.3, Neutrophils # (Auto) 3.7, Lymphocytes # (Auto) 1.4L, Monocytes # (Auto) 0.4, Eosinophils # (Auto) 0.4, Basophils # (Auto) 0.0, Nucleated Red Blood Cells % (auto) 0.0, Anion Gap 6L, Glomerular Filtration Rate > 60.0, Calcium Level 8.7L, Total Bilirubin 0.8#, Aspartate Amino Transf (AST/SGOT) 10, Alanine Aminotransferase (ALT/SGPT) 13, Alkaline Phosphatase 50, Total Protein 5.9L, Albumin 2.8L, Albumin/Globulin Ratio 0.90L Home Medications Scheduled Anagrelide HCl (Anagrelide HCl) 0.5 Mg Capsule, 1.5 MG PO QHS, (Reported) Losartan/Hydrochlorothiazide (Losartan-Hctz 50-12.5 mg Tab) 1 Each Tablet, 1 TAB PO QHS, (Reported) Morphine Sulfate (Ms Contin) 15 Mg Tablet.er, 1 TAB PO BID Rivaroxaban (Xarelto) 10 Mg Tablet, 10 MG PO DAILY Scheduled PRN Acetaminophen (Acetaminophen) 500 Mg Tablet, 1,000 MG PO Q8H PRN for BACK PAIN Cyclosporine (Restasis) 0.05% Droperette, 1 DROP OU BID PRN for DRY EYES, (Reported) Loperamide HCl (Imodium A-D) 2 Mg Capsule, 2 MG PO QHS PRN for DIARRHEA, (Reported) Tramadol HCl (Tramadol HCl) 50 Mg Tablet, 1-2 TAB PO Q4H PRN for PAIN Allergies Coded Allergies: No Known Drug Allergies (Verified Allergy, Unknown, 03/29/19) latex (Verified Allergy, Unknown, unknown, 03/29/19) A-FIB/CHADSVASC A-FIB History Current/History of A-Fib/PAF?: No ALYSSA GAMBOA MD Apr 01, 2019 14:39
--- NOTE | 2019-04-01 14:46 | IPNPDOC ---
PM&R Progress Note DATE OF SERVICE: Apr 01, 2019 Marketing And Outreach Coordinator Progress Note Subjective: Patient was nauseas this morning after taking pain pill, responded to Zofran and felt better after having a bowl movement. She thinks her pain is bearable and is agreeable to starting lower doses of pain medication. She reports her grandson was wondering if she should try medical marijuana. Patient was educated on the negative side effects that this would increase her chances of falling and cause alterations in her overall mentation. REVIEW OF SYSTEMS: The following is a completed review of systems and has been reviewed. Review of systems otherwise unremarkable. PAIN: Patient self reports right hip pain EYES: No recent vision changes EARS, NOSE, & THROAT: No throat pain, or dysphagia, or rhinorrhea CARDIOVASCULAR: Denies chest pain or palpitations PULMONARY: Denies shortness of breath GASTROINTESTINAL: + constipation (improving) GENITOURINARY: denies dysuria MUSCULOSKELETAL: right hip fracture NEUROLOGICAL:no focal tremor or seizure activity HEMATOLOGICAL: +thrombocythemia SKIN: right hip incision PSYCHIATRIC: Unremarkable All other review of systems found to be negative. PHYSICAL EXAMINATION: VITAL SIGNS: Please see below. GENERAL: Pleasant and cooperative. No acute distress. thin, +sedated HEENT: PERRL. Extraocular movements intact. Clear conjunctiva CARDIOVASCULAR: Regular rate and rhythm. +systolic murmur, rubs, or gallops LUNGS: Clear to auscultation bilaterally. No wheezes. No rhonchi ABDOMEN: Soft, nontender, nondistended. Positive bowel sounds. Normal active bowel sounds NEUROLOGICAL: Alert and oriented times three. Cranial nerves II through XII grossly intact. Sensation grossly intact EXTREMITIES: 5\5 strength bilateral upper extremities. 5\5 strength right ankle PF, DF and EHL extension (limited due to surgery). 5/5 strength in left lower extremity. (-) Homans bilat (+) RLE edema SKIN: right hip incision with scant serous drainage, mild swelling, no induration ASSESSMENT:83-year-old F with past medical history of HTN and thrombocythemia who presents status post fall with right hip fracture PLAN: 1. Rehab:- PT/OT advance gait and ADl training, strengthen/stretch/maintain ROM all 4 limbs 2. Neuro: no known hx 3. Cardiac: HTN c/u losartan and HCTZ, patient with hyperkalemia on inpatient side, c/u lower losartan and increased HCTZ dosing for optimal BP control- medicine consulted to assist in management -+systolic murmur, patient without recent ECHO on file and no close cardiology follow-up- will refer on d/c -will add metoprolol tartrate 12.5 TID for tachycardia 4. Resp: encourage incentive spirometry and monitor for infection 5. Heme: hx of thrombocythemia- med rec error recognized and corrected with pharmacy, patient is NOT on Amiloride (did not receive this medication at any time during hospital stay), but has been on Anagrelide, patient's family will bring in this medication -post-op anemia improved s/p transfusion, monitor for further blood loss-hgb stable 6. GI ppx: protonix 7. DVT ppx: Xarelto 8. Ortho: s/p right hip ORIF, WBAT- consulted to assist in management 9. Pain: d/c'd morphine 15mg BID due to nausea and sedation, d/c'd tramadol 25mg as well - will trial oxycodone 2.5mg QID scheduled and qhs prn, had lengthy conversation with patient about dangers of falling and altered mental status with opioids and that although she may have been able to tolerate high doses in 2006 that her body at this point likely can only tolerate low doses, she expressed understanding -c/u Tylenol 1gm TID standing -c/u lidoderm patches to back and bilat hips 10. Dispo: TBD Allergies Coded Allergies: No Known Drug Allergies (Verified Allergy, Unknown, 03/29/19) latex (Verified Allergy, Unknown, unknown, 03/29/19) Vital Signs Vital Signs Date Time Temp Pulse Resp B/P (MAP) Pulse Ox O2 Delivery O2 Flow Rate FiO2 04/01/19 12:25 18 04/01/19 06:00 97.9 103 149/66 (93) 95 Room Air Laboratory Data CBC/BMP Laboratory Tests 04/01/19 06:52 Labs 24H Laboratory Tests 2 04/01/19 06:52: Immature Granulocyte % (Auto) 0.3, Neutrophils (%) (Auto) 62.8, Lymphocytes (%) (Auto) 23.7L, Monocytes (%) (Auto) 6.9H, Eosinophils (%) (Auto) 6.0H, Basophils (%) (Auto) 0.3, Neutrophils # (Auto) 3.7, Lymphocytes # (Auto) 1.4L, Monocytes # (Auto) 0.4, Eosinophils # (Auto) 0.4, Basophils # (Auto) 0.0, Nucleated Red Blood Cells % (auto) 0.0, Anion Gap 6L, Glomerular Filtration Rate > 60.0, Calcium Level 8.7L, Total Bilirubin 0.8#, Aspartate Amino Transf (AST/SGOT) 10, Alanine Aminotransferase (ALT/SGPT) 13, Alkaline Phosphatase 50, Total Protein 5.9L, Albumin 2.8L, Albumin/Globulin Ratio 0.90L Current Medications Current Medications Current Medications Medications (Trade) Dose Ordered Sig/Elena Route PRN Reason Start Time Stop Time Status Last Admin Dose Admin Acetaminophen (Tylenol Tab) 1,000 mg TID PO 03/31/19 21:00 04/01/19 08:41 Amiloride HCl (Midamor) 5 mg DAILY PO 04/01/19 09:00 03/31/19 17:19 DC Calcium Carbonate (Oscal) 500 mg BID PO 03/31/19 21:00 04/01/19 08:41 Docusate Sodium (Colace) 100 mg BID PO 03/31/19 21:00 04/01/19 08:41 Home Med (Med Rec Complete!) ASDIRECTED XX 03/31/19 17:30 03/31/19 17:23 DC Hydrochlorothiazide (Hydrodiuril) 25 mg DAILY PO 04/01/19 09:00 04/01/19 08:41 Lidocaine (Lidoderm Patch) 2 patch DAILY@2100 TD 03/31/19 21:00 03/31/19 21:14 Losartan Potassium (Cozaar) 25 mg DAILY PO 04/01/19 09:00 04/01/19 08:42 Magnesium Hydroxide (Milk Of Magnesia) 30 ml DAILYPRN PRN PO CONSTIPATION 03/31/19 16:30 Metoprolol Tartrate (Lopressor) 12.5 mg TID PO 04/01/19 09:00 04/01/19 11:41 Morphine Sulfate (Ms Contin) 15 mg BID PO 03/31/19 21:00 04/01/19 11:16 DC 04/01/19 08:41 Non-Formulary Medication ( See Comment Field Below ) REMOVE LIDODERM PATCH DAILY XX 04/01/19 09:00 04/01/19 08:42 Ondansetron HCl (Zofran Odt) 4 mg Q4HP PRN PO NAUSEA OR VOMITING 04/01/19 11:15 04/01/19 11:41 Oxycodone HCl (Roxicodone, Oxyir) 2.5 mg DAILY@0800,1200 PO 04/01/19 12:00 04/01/19 11:43 Oxycodone HCl (Roxicodone, Oxyir) 2.5 mg DAILY@1600,2000 PO 04/01/19 16:00 Oxycodone HCl (Roxicodone, Oxyir) 5 mg ASDIRECTED PRN PO PAIN 04/01/19 11:15 Pantoprazole Sodium (Protonix) 40 mg DAILY PO 04/01/19 09:00 04/01/19 08:41 Rivaroxaban (Xarelto) 10 mg DAILY@1800 PO 03/31/19 18:00 03/31/19 17:13 Senna (Senokot) 1 tab QHS PO 03/31/19 21:00 03/31/19 21:15 Tramadol HCl (Ultram) 25 mg Q8HP PRN PO MODERATE PAIN (PS 5-7) 03/31/19 21:00 04/01/19 11:16 KHUSHBU 04/01/19 02:50 Tramadol HCl (Ultram) 50 mg Q6HP PRN PO MODERATE PAIN (PS 5-7) 03/31/19 16:30 03/31/19 17:13 ALYSSA SALINAS MD Apr 01, 2019 14:46
[2019-04-01] MEDS: RIVAROXABAN 10 MG TAB (XARELTO) PO SCH (17:28)
--- NOTE | 2019-04-01 17:43 | CR ---
DATE OF CONSULTATION: 04/01/2019 REFERRING PHYSICIAN: Dr. Dickerson REASON FOR CONSULTATION: Medical management of chronic medical issues. 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 THe patient complains of persistent pain postoperatively, rates it as 5 out of 10, as well as nausea when she takes her pain medications. The patient has requested medical marijuana, which was suggested by her grandson and this has been discussed with Dr. Mena Dickerson. Her blood pressure has been uncontrolled with systolic running 140 to 157, treated with low dose metoprolol at 12.5 mg three times a day with some improvement. She resumed losartan 25 mg daily, as well as hydrochlorothiazide 25 mg daily. The patient otherwise denies any weight gain, weight loss, fevers, chills, shortness of breath, chest pain, pressure, tightness, lightheadedness, or dizziness. She denies vomiting, epigastric pain, feelings of impending doom, dysuria, urgency, frequency, fever or chills. Denies any changes in appetite, weight gain, weight loss, rhinorrhea, changes in vision, tinnitus. Denies any anxiety, depression history. No generalized weakness or fatigue. Denies night sweats. Denies any polyphagia or polyuria or polydipsia. No other complaints. PAST MEDICAL HISTORY: 1. Essential thrombocythemia. 2. Osteoporosis. 3. T11-L1 compression fracture. 4. Degenerative joint disease of the spine. 5. Pubic rami fracture on the right. 6. Right parietal lobe central semiovale lacunar infract. 7. Chronic dry eyes. 8. Hypertension. PAST SURGICAL HISTORY: 1. Middle ear implant. 2. Left hip fracture with open reduction and intramedullary implant in 2006. 3. Right hip fracture, status post ORIF March 2019. 4. Hysterectomy with bladder suspension at [facility]. ALLERGIES: LATEX causing rash. HOME MEDICATIONS: - acetaminophen 1 gram every 8 hours as needed for back pain - morphine - MS-Contin 15 mg twice a day - Xarelto 10 mg daily - tramadol one to two tablets every 4 hours as needed for pain - anagrelide 1.5 mg at night - Restasis one drop both eyes twice a day - loperamide 2 mg at night as needed for diarrhea - losartan 50/12.5 mg one tablet at night HOSPITAL MEDICATIONS: - anagrelide in the morning - Oxy-IR 2.5 mg daily - Advil PM 2.5 mg at 8:00 and noon - Zofran 4 mg every 4 hours as needed for nausea - Protonix 40 mg daily - losartan 25 mg daily - hydrochlorothiazide 25 mg daily - metoprolol 12.5 mg three times a day - Colace 100 mg twice a day - Senokot one tablet at night - Tylenol 1 gram three times a day - Os-Bayron 500 mg twice a day - lidocaine two patches daily - Xarelto 10 mg daily - milk of magnesia 30 mL daily as needed for constipation SOCIAL HISTORY: Lives at home. Denies alcohol, tobacco or illicit drug use. Daughter is the healthcare proxy. The patient is a [employer], [employer], . FAMILY HISTORY: Brother in his 90s, leukemia and stroke. REVIEW OF SYSTEMS: As per history of present illness. 12-point system is otherwise negative. PHYSICAL EXAMINATION: VITAL SIGNS: Temperature 97.7, pulse 99, respiratory rate 19, blood pressure 140/63, 94% on room air. GENERAL: The patient is awake, alert, oriented. Answering questions appropriately. Anicteric. No jaundice. No thyromegaly or jugular venous distention (JVD). No cervical lymphadenopathy. Moist mucous membranes. LUNGS: Clear to auscultation with no wheezing, rales or rhonchi. HEART: S1, S2 sinus rhythm. Systolic ejection murmur. Nondisplaced point of maximum impulse (PMI). ABDOMEN: Soft, nontender, nondistended. Positive bowel sounds times four quadrants. No rebound, guarding or hepatosplenomegaly. EXTREMITIES: Postoperative right hip. 5/5 motor strength at bilateral upper extremities. Positive edema on the right. LABORATORY DATA: White count 5.8, hemoglobin 9.1, hematocrit 27, platelet count 453. Sodium 135, potassium 4.6, chloride 101, bicarbonate 28, BUN 22, creatinine 0.93, glucose 115, calcium 8.7, AST 10, ALT 13, alkaline phosphatase 50, albumin 2.8. ASSESSMENT AND PLAN: 83-year-old female status post right intertrochanteric hip fracture and superior pubic rami fracture status post open reduction, internal fixation (ORIF) admitted to acute rehabilitation unit for rehabilitation. History is significant for essential thrombocythemia, osteoporosis, T11-L1 compression fractures, CVA in the right parietal lobe lacunar infarct. ACTIVE ISSUES: 1. Hypertension, uncontrolled, most likely secondary to pain. The patient has been started on metoprolol 12.5 mg three times a day with holding parameters, losartan, hydrochlorothiazide. We will monitor the patient's renal function and adjust accordingly. 2. Right hip fracture, status post ORIF. Currently on oxycodone, bowel regimen and deep vein thrombosis (DVT) prophylaxis with Xarelto 10 mg daily, as well as Lidocaine patch. 3. Essential thrombocythemia. On anagrelide. No complaints of pulmonary edema, headaches, changes in vision. 4. History of osteoporosis. Monitor for recurrent self assisted ambulation. 5. History of right parietal lobe CVA. No other acute issues at this time. 6. Chronic dry eyes. On Restasis. MTDD
[2019-04-01 21:00] VITALS: BP 148/60
[2019-04-01] MEDS: SENNA 8.6 MG TAB (SENOKOT) PO SCH (21:30)
[2019-04-01] MEDS: ANAGRELIDE 0.5 MG PO SCH (21:30)
[2019-04-01] MEDS: LIDOCAINE 5% (LIDODERM) PATCH TD SCH (21:36)
[2019-04-02 06:00] VITALS: BP 112/57
[2019-04-02] MEDS: hydroCHLOROthiazide 25 MG TAB PO SCH (08:49)
[2019-04-02] MEDS: METOPROLOL TART 12.5 MG PER 1/2 TAB PO SCH ×3 (08:49→21:00)
[2019-04-02] MEDS: oxyCODONE 5MG TAB PO SCH ×2 (08:49→12:10)
[2019-04-02] MEDS: PANTOPRAZOLE 40MG TAB (PROTONIX) PO SCH (08:49)
[2019-04-02] MEDS: ACETAMINOPHEN 500 MG TAB PO SCH ×3 (08:51→21:07)
[2019-04-02] MEDS: ANAGRELIDE 0.5 MG PO SCH ×2 (08:51→21:07)
[2019-04-02] MEDS: LOSARTAN 25 MG TAB PO SCH (08:52)
[2019-04-02] MEDS: OYSTER SHELL CALCIUM 500 MG TAB PO SCH ×2 (08:52→21:07)
[2019-04-02] MEDS: DOCUSATE SODIUM 100 MG CAP PO SCH ×3 (08:52→21:10)
[2019-04-02] MEDS: **NOTE PATIENT COMMENT** MISC XX SCH (08:53)
--- NOTE | 2019-04-02 11:46 | IPNPDOC ---
PM&R Progress Note DATE OF SERVICE: Apr 02, 2019 [employer] Progress Note Subjective: Patient seen this morning stating she thinks her pain is well controlled and she is looking forward to her daughter bringing her a sub. She denies feeling nauseous, but thinks she may still be constipated. REVIEW OF SYSTEMS: The following is a completed review of systems and has been reviewed. Review of systems otherwise unremarkable. PAIN: Patient self reports right hip pain EYES: No recent vision changes EARS, NOSE, & THROAT: No throat pain, or dysphagia, or rhinorrhea CARDIOVASCULAR: Denies chest pain or palpitations PULMONARY: Denies shortness of breath GASTROINTESTINAL: + constipation (improving) GENITOURINARY: denies dysuria MUSCULOSKELETAL: right hip fracture NEUROLOGICAL:no focal tremor or seizure activity HEMATOLOGICAL: +thrombocythemia SKIN: right hip incision PSYCHIATRIC: Unremarkable All other review of systems found to be negative. PHYSICAL EXAMINATION: VITAL SIGNS: Please see below. GENERAL: Pleasant and cooperative. No acute distress. thin, +sedated HEENT: PERRL. Extraocular movements intact. Clear conjunctiva CARDIOVASCULAR: Regular rate and rhythm. +systolic murmur, rubs, or gallops LUNGS: Clear to auscultation bilaterally. No wheezes. No rhonchi ABDOMEN: Soft, nontender, nondistended. Positive bowel sounds. Normal active bowel sounds NEUROLOGICAL: Alert and oriented times three. Cranial nerves II through XII grossly intact. Sensation grossly intact EXTREMITIES: 5\5 strength bilateral upper extremities. 5\5 strength right ankle PF, DF and EHL extension (limited due to surgery). 5/5 strength in left lower extremity. (-) Homans bilat (+) RLE edema SKIN: right hip incision with scant serous drainage, mild swelling, no induration Right elbow with plaque like lesion ASSESSMENT:83-year-old F with past medical history of HTN and thrombocythemia who presents status post fall with right hip fracture PLAN: 1. Rehab:- PT/OT advance gait and ADl training, strengthen/stretch/maintain ROM all 4 limbs, ambulating with RW 2. Neuro: no known hx 3. Cardiac: HTN c/u losartan and HCTZ, patient with hyperkalemia on inpatient side, c/u lower losartan and increased HCTZ dosing for optimal BP control- medicine consulted to assist in management -+systolic murmur, patient without recent ECHO on file and no close cardiology follow-up- will refer on d/c -c/u metoprolol tartrate 12.5 TID for tachycardia-improving 4. Resp: encourage incentive spirometry and monitor for infection 5. Heme: hx of thrombocythemia- med rec error recognized and corrected with pharmacy, patient is NOT on Amiloride (did not receive this medication at any time during hospital stay), but has been on Anagrelide which has been started -post-op anemia improved s/p transfusion, monitor for further blood loss-hgb stable 6. GI ppx: protonix 7. DVT ppx: Xarelto, will order dopplers to r/o DVT in setting of platelet disorder 8. Ortho: s/p right hip ORIF, WBAT- consulted to assist in management 9. Pain: d/c'd morphine 15mg BID due to nausea and sedation, d/c'd tramadol 25mg as well - c/u oxycodone 2.5mg QID scheduled and qhs prn-patient reporting her pain is well controlled, had lengthy conversation with patient about dangers of falling and altered mental status with opioids and that although she may have been able to tolerate high doses in 2006 that her body at this point likely can only tolerate low doses, she expressed understanding -c/u Tylenol 1gm TID standing -c/u lidoderm patches to back and bilat hips 10. Skin- psoriasis, will order lotion to UE 11. Dispo: TBD Allergies Coded Allergies: No Known Drug Allergies (Verified Allergy, Unknown, 03/29/19) latex (Verified Allergy, Unknown, unknown, 03/29/19) Vital Signs Vital Signs Date Time Temp Pulse Resp B/P (MAP) Pulse Ox O2 Delivery O2 Flow Rate FiO2 04/02/19 09:20 18 Room Air 04/02/19 08:49 68 128/72 04/02/19 06:00 99.2 93 Current Medications Current Medications Current Medications Medications (Trade) Dose Ordered Sig/Elena Route PRN Reason Start Time Stop Time Status Last Admin Dose Admin Acetaminophen (Tylenol Tab) 1,000 mg TID PO 03/31/19 21:00 04/02/19 08:51 Amiloride HCl (Midamor) 5 mg DAILY PO 04/01/19 09:00 03/31/19 17:19 DC Calcium Carbonate (Oscal) 500 mg BID PO 03/31/19 21:00 04/02/19 08:52 Docusate Sodium (Colace) 100 mg BID PO 03/31/19 21:00 04/02/19 08:52 Home Med (Med Rec Complete!) ASDIRECTED XX 03/31/19 17:30 03/31/19 17:23 DC Hydrochlorothiazide (Hydrodiuril) 25 mg DAILY PO 04/01/19 09:00 04/02/19 08:49 Lidocaine (Lidoderm Patch) 2 patch DAILY@2100 TD 03/31/19 21:00 04/01/19 21:36 Losartan Potassium (Cozaar) 25 mg DAILY PO 04/01/19 09:00 04/02/19 08:52 Magnesium Hydroxide (Milk Of Magnesia) 30 ml DAILYPRN PRN PO CONSTIPATION 03/31/19 16:30 Metoprolol Tartrate (Lopressor) 12.5 mg TID PO 04/01/19 09:00 04/02/19 08:49 Morphine Sulfate (Ms Contin) 15 mg BID PO 03/31/19 21:00 04/01/19 11:16 DC 04/01/19 08:41 Non-Formulary Medication ( See Comment Field Below ) REMOVE LIDODERM PATCH DAILY XX 04/01/19 09:00 04/02/19 08:53 Ondansetron HCl (Zofran Odt) 4 mg Q4HP PRN PO NAUSEA OR VOMITING 04/01/19 11:15 04/01/19 11:41 Oxycodone HCl (Roxicodone, Oxyir) 2.5 mg DAILY@0800,1200 PO 04/01/19 12:00 04/02/19 08:49 Oxycodone HCl (Roxicodone, Oxyir) 2.5 mg DAILY@1600,2000 PO 04/01/19 16:00 04/01/19 21:29 Oxycodone HCl (Roxicodone, Oxyir) 5 mg ASDIRECTED PRN PO PAIN 04/01/19 11:15 Pantoprazole Sodium (Protonix) 40 mg DAILY PO 04/01/19 09:00 04/02/19 08:49 Patient Own Medication (Patient'S Own Med) ANAGRELIDE (AGRYLIN) 0.... QAM PO 04/02/19 09:00 04/02/19 08:51 Patient Own Medication (Patient'S Own Med) ANAGRELIDE (AGRYLIN) 0.... QPM PO 04/01/19 21:00 04/01/19 21:30 Rivaroxaban (Xarelto) 10 mg DAILY@1800 PO 03/31/19 18:00 04/01/19 17:28 Senna (Senokot) 1 tab QHS PO 03/31/19 21:00 04/01/19 21:30 Tramadol HCl (Ultram) 25 mg Q8HP PRN PO MODERATE PAIN (PS 5-7) 03/31/19 21:00 04/01/19 11:16 DC 04/01/19 02:50 Tramadol HCl (Ultram) 50 mg Q6HP PRN PO MODERATE PAIN (PS 5-7) 03/31/19 16:30 03/31/19 17:13 ALYSSA SALINAS MD Apr 02, 2019 11:46
[2019-04-02 14:00] VITALS: BP 127/58
--- NOTE | 2019-04-02 15:28 | REP ---
Bilateral lower extremity deep vein duplex ultrasound for immobility: Right lower extremity: Surgical dressing precludes evaluation of the superior thigh. The deep veins are noncompressible from the popliteal vein to the proximal femoral vein compatible with diffuse intraluminal thrombus. However, with color Doppler assessment there is vascular flow, indicating that the thrombus is nonocclusive. Left lower extremity: The deep veins demonstrate normal compression, normal Doppler color flow and normal Doppler waveforms. There is no thrombus in the left lower extremity. Impression: The right lower extremity demonstrates non occlusive thrombus from the popliteal vein to the proximal femoral vein. There is no thrombus in the left lower extremity. Electronically Signed by Ten Trevizo MD 04/02/2019 03:19 P
[2019-04-02] MEDS: THERAPEUTIC BATH LOTION 240 ML BTL TOP SCH ×2 (16:58→21:08)
[2019-04-02] MEDS: RIVAROXABAN 10 MG TAB (XARELTO) PO SCH (17:02)
[2019-04-02] MEDS: REMEDY PHYTOPLEX Z-GUARD PASTE 113GM TUBE (FROM STOREROOM PRODUCT) TOP SCH ×2 (17:05→21:08)
[2019-04-02] MEDS ORDERED: ISOVUE-370 76% 100ML VIAL (Q9967) As Ordered ONE (17:53)
--- NOTE | 2019-04-02 18:53 | REPVR ---
PROCEDURE INFORMATION: Exam: CT Angiography Chest With Contrast Exam date and time: 04/02/2019 5:58 PM Age: 83 years old Clinical indication: Condition or disease; Other: Dvt; Additional info: R/O pe, known acute dvt TECHNIQUE: Imaging protocol: Computed tomographic angiography of the chest with intravenous contrast. 3D rendering: MIP and/or 3D reconstructed images were created by the technologist. Radiation optimization: All CT scans at this facility use at least one of these dose optimization techniques: automated exposure control; mA and/or kV adjustment per patient size (includes targeted exams where dose is matched to clinical indication); or iterative reconstruction. Contrast material: ISOVUE 370; Contrast volume: 75 ml; Contrast route: IV; COMPARISON: CR Chest, 1 view 03/29/2019 9:56 AM FINDINGS: Pulmonary arteries: Normal. No pulmonary emboli. Aorta: Unremarkable. No aortic aneurysm. No aortic dissection. Lungs: Unremarkable. No consolidation. No masses. Pleural space: Unremarkable. No pneumothorax. No pleural effusion. Heart: Unremarkable. No cardiomegaly. No pericardial effusion. Pancreas: Partially seen is a pancreatic duct in the body is dilated measuring 5 mm. Lymph nodes: Unremarkable. No enlarged lymph nodes. Bones/joints: Multiple chronic thoracic compression fractures. Soft tissues: Unremarkable. IMPRESSION: No pulmonary embolus. Partially seen pancreatic duct is dilated measuring [address] are MRI can be obtained of abdomen for evaluation of pancreatic duct obstruction/upstream pancreatic neoplastic obstructing lesion. Electronically signed by: Kenton Frederick On 04/02/2019 18:53:21 PM
[2019-04-02 21:00] VITALS: BP 109/54
[2019-04-02] MEDS: oxyCODONE 5MG TAB PO PRN (21:06)
[2019-04-02] MEDS: SENNA 8.6 MG TAB (SENOKOT) PO SCH (21:07)
[2019-04-02] MEDS: LIDOCAINE 5% (LIDODERM) PATCH TD SCH (21:08)
[2019-04-03 06:00] VITALS: BP 154/70
[2019-04-03 07:01] LABS: BASO % 0.4 % (0.0-1.0); EOS # 0.3 10^3/uL (0.0-0.5); EOS % 6.2 % (0.0-3.0); HEMATOCRIT 24.3 % (36.0-47.0); LYMPH # 1.2 10^3/uL (1.5-5.0); LYMPH % 23.9 % (24.0-44.0); MEAN CORPUSCULAR HEMOGLOBIN 32.3 pg (27.0-33.0); MEAN CORPUSCULAR HGB CONC 32.9 g/dl (32.0-36.5); MONO # 0.4 10^3/uL (0.0-0.8); MONO % 8.5 % (0.0-5.0); NEUTROPHILS # 2.9 10^3/uL (1.5-8.5); NEUTROPHILS % 60.2 % (36.0-66.0); PLATELET COUNT, AUTOMATED 589 10^3/uL (150-450); RED BLOOD COUNT 2.48 10^6/uL (4.00-5.40); WHITE BLOOD COUNT 4.9 10^3/uL (4.0-10.0)
[2019-04-03 07:25] LABS: CALCIUM LEVEL 8.4 MG/DL (8.8-10.2); CREATININE FOR GFR 1.04 MG/DL (0.55-1.30); GLOMERULAR FILTRATION RATE 53.6 (>32)
[2019-04-03] MEDS: DOCUSATE SODIUM 100 MG CAP PO SCH ×3 (08:51→21:00)
[2019-04-03] MEDS: LOSARTAN 25 MG TAB PO SCH (08:51)
[2019-04-03] MEDS: ANAGRELIDE 0.5 MG PO SCH ×2 (08:51→21:15)
[2019-04-03] MEDS: OYSTER SHELL CALCIUM 500 MG TAB PO SCH ×2 (08:51→21:15)
[2019-04-03] MEDS: METOPROLOL TART 12.5 MG PER 1/2 TAB PO SCH ×3 (08:51→21:14)
[2019-04-03] MEDS: ACETAMINOPHEN 500 MG TAB PO SCH ×3 (08:52→21:14)
[2019-04-03] MEDS: hydroCHLOROthiazide 25 MG TAB PO SCH (08:52)
[2019-04-03] MEDS: PANTOPRAZOLE 40MG TAB (PROTONIX) PO SCH ×2 (08:52→21:14)
[2019-04-03] MEDS: **NOTE PATIENT COMMENT** MISC XX SCH (08:53)
[2019-04-03] MEDS: THERAPEUTIC BATH LOTION 240 ML BTL TOP SCH ×3 (08:53→21:17)
[2019-04-03] MEDS: REMEDY PHYTOPLEX Z-GUARD PASTE 113GM TUBE (FROM STOREROOM PRODUCT) TOP SCH ×3 (08:53→21:18)
[2019-04-03 11:07] LABS: HEMATOCRIT 28.6 % (36.0-47.0); HEMOGLOBIN 9.1 g/dl (12.0-15.5)
[2019-04-03 14:00] VITALS: BP 111/56
[2019-04-03 16:15] VITALS: BP 114/55
--- NOTE | 2019-04-03 17:36 | IPNPDOC ---
PM&R Progress Note DATE OF SERVICE: Apr 03, 2019 [employer] Progress Note Subjective: Patient seen this morning reporting she feels ok overall and understands she has a clot in her right leg. She was educated on the risk of developing a PE and to alert nursing staff is she has any increased work of breathing, chest pressure, or dizziness. REVIEW OF SYSTEMS: The following is a completed review of systems and has been reviewed. Review of systems otherwise unremarkable. PAIN: Patient self reports right hip pain EYES: No recent vision changes EARS, NOSE, & THROAT: No throat pain, or dysphagia, or rhinorrhea CARDIOVASCULAR: Denies chest pain or palpitations PULMONARY: Denies shortness of breath GASTROINTESTINAL: + constipation (improving) GENITOURINARY: denies dysuria MUSCULOSKELETAL: right hip fracture NEUROLOGICAL:no focal tremor or seizure activity HEMATOLOGICAL: +thrombocythemia SKIN: right hip incision PSYCHIATRIC: Unremarkable All other review of systems found to be negative. PHYSICAL EXAMINATION: VITAL SIGNS: Please see below. GENERAL: Pleasant and cooperative. No acute distress. thin, +sedated HEENT: PERRL. Extraocular movements intact. Clear conjunctiva CARDIOVASCULAR: Regular rate and rhythm. +systolic murmur, rubs, or gallops LUNGS: Clear to auscultation bilaterally. No wheezes. No rhonchi ABDOMEN: Soft, nontender, nondistended. Positive bowel sounds. Normal active bowel sounds NEUROLOGICAL: Alert and oriented times three. Cranial nerves II through XII grossly intact. Sensation grossly intact EXTREMITIES: 5\5 strength bilateral upper extremities. 5\5 strength right ankle PF, DF and EHL extension (limited due to surgery). 5/5 strength in left lower extremity. (-) Homans bilat (+) RLE edema SKIN: right hip incision with scant serous drainage, mild swelling, no induration Right elbow with plaque like lesion ASSESSMENT:83-year-old F with past medical history of HTN and thrombocythemia who presents status post fall with right hip fracture PLAN: 1. Rehab:- PT/OT advance gait and ADl training, strengthen/stretch/maintain ROM all 4 limbs, ambulating with RW 2. Neuro: no known hx 3. Cardiac: HTN c/u losartan and HCTZ, patient with hyperkalemia on inpatient side, c/u lower losartan and increased HCTZ dosing for optimal BP control- medicine consulted to assist in management -+systolic murmur, patient without recent ECHO on file and no close cardiology follow-up- will refer on d/c -c/u metoprolol tartrate 12.5 TID for tachycardia-improving 4. Resp: encourage incentive spirometry and monitor for infection 5. Heme: hx of thrombocythemia- med rec error recognized and corrected with pharmacy, patient is NOT on Amiloride (did not receive this medication at any time during hospital stay), but has been on Anagrelide which has been started -post-op anemia improved s/p transfusion, monitor for further blood loss-hgb stable 6. GI ppx: protonix -CTA of chest showed incidental pancreatic duct dilation, will discuss further work-up with medicine and patient Saturday 7. DVT ppx: +acute right pop-fem DVT discussed case with vascular surgery who recommends switching to Eliquis, CTA negative for PE, will order repeat Doppler for Saturday to monitor progression, if migrates proximally, will formally consult [employer] for IVC filter 8. Ortho: s/p right hip ORIF, WBAT- consulted to assist in management 9. Pain: d/c'd morphine 15mg BID due to nausea and sedation, d/c'd tramadol 25mg as well - c/u oxycodone 2.5mg QID scheduled and qhs prn-patient reporting her pain is well controlled, had lengthy conversation with patient about dangers of falling and altered mental status with opioids and that although she may have been able to tolerate high doses in 2006 that her body at this point likely can only tolerate low doses, she expressed understanding -c/u Tylenol 1gm TID standing -c/u lidoderm patches to back and bilat hips 10. Skin- psoriasis, c/u lotion to UE 11. Dispo: TBD Allergies Coded Allergies: No Known Drug Allergies (Verified Allergy, Unknown, 03/29/19) latex (Verified Allergy, Unknown, unknown, 03/29/19) Vital Signs Vital Signs Date Time Temp Pulse Resp B/P (MAP) Pulse Ox O2 Delivery O2 Flow Rate FiO2 04/03/19 16:15 99 114/55 (74) 04/03/19 14:00 98.8 18 96 Room Air Laboratory Data CBC/BMP Laboratory Tests 04/03/19 06:11 04/03/19 10:45 Labs 24H Laboratory Tests 2 04/02/19 18:36: Urine Color YELLOW, Urine Appearance CLEAR, Urine pH 5.0, Urine Specific [place] 1.016, Urine Protein NEGATIVE, Urine Glucose (UA) NEGATIVE, Urine Ketones NEGATIVE, Urine Blood NEGATIVE, Urine Nitrite NEGATIVE, Urine Bilirubin NEGATIVE, Urine Urobilinogen 0.2, Urine Leukocyte Esterase NEGATIVE, Urine WBC (Auto) 0, Urine RBC (Auto) 3, Urine Hyaline Casts (Auto) 0, Urine Bacteria (Auto) NEGATIVE, Urine Squamous Epithelial Cells 0, Urine Mucus (Auto) SMALL, Urine Sperm (Auto) 04/03/19 06:11: Immature Granulocyte % (Auto) 0.8, Neutrophils (%) (Auto) 60.2, Lymphocytes (%) (Auto) 23.9L, Monocytes (%) (Auto) 8.5H, Eosinophils (%) (Auto) 6.2H, Basophils (%) (Auto) 0.4, Neutrophils # (Auto) 2.9, Lymphocytes # (Auto) 1.2L, Monocytes # (Auto) 0.4, Eosinophils # (Auto) 0.3, Basophils # (Auto) 0.0, Nucleated Red Blood Cells % (auto) 0.0, Anion Gap 6L, Glomerular Filtration Rate 53.6, Calcium Level 8.4L Current Medications Current Medications Current Medications Medications (Trade) Dose Ordered Sig/Elena Route PRN Reason Start Time Stop Time Status Last Admin Dose Admin Acetaminophen (Tylenol Tab) 1,000 mg TID PO 03/31/19 21:00 04/03/19 16:28 Amiloride HCl (Midamor) 5 mg DAILY PO 04/01/19 09:00 03/31/19 17:19 DC Apixaban (Eliquis) 10 mg BID PO 04/03/19 21:00 Calcium Carbonate (Oscal) 500 mg BID PO 03/31/19 21:00 04/03/19 08:51 Docusate Sodium (Colace) 100 mg BID PO 03/31/19 21:00 04/02/19 11:43 DC 04/02/19 08:52 Docusate Sodium (Colace) 100 mg TID PO 04/02/19 16:00 04/03/19 08:51 Home Med (Med Rec Complete!) ASDIRECTED XX 03/31/19 17:30 03/31/19 17:23 DC Hydrochlorothiazide (Hydrodiuril) 25 mg DAILY PO 04/01/19 09:00 04/03/19 08:52 Lidocaine (Lidoderm Patch) 2 patch DAILY@2100 TD 03/31/19 21:00 04/02/19 21:08 Losartan Potassium (Cozaar) 25 mg DAILY PO 04/01/19 09:00 04/03/19 08:51 Magnesium Hydroxide (Milk Of Magnesia) 30 ml DAILYPRN PRN PO CONSTIPATION 03/31/19 16:30 Metoprolol Tartrate (Lopressor) 12.5 mg TID PO 04/01/19 09:00 04/03/19 08:51 Morphine Sulfate (Ms Contin) 15 mg BID PO 03/31/19 21:00 04/01/19 11:16 DC 04/01/19 08:41 Multi-Ingredient Lotion (Rosalind Lotion) 1 dose TID TOP 04/02/19 16:00 04/03/19 16:30 Non-Formulary Medication ( See Comment Field Below ) REMOVE LIDODERM PATCH DAILY XX 04/01/19 09:00 04/03/19 08:53 Ondansetron HCl (Zofran Odt) 4 mg Q4HP PRN PO NAUSEA OR VOMITING 04/01/19 11:15 04/01/19 11:41 Oxycodone HCl (Roxicodone, Oxyir) 2.5 mg DAILY@0800,1200 PO 04/01/19 12:00 04/02/19 16:36 DC 04/02/19 12:10 Oxycodone HCl (Roxicodone, Oxyir) 2.5 mg DAILY@1600,2000 PO 04/01/19 16:00 04/02/19 16:36 DC 04/01/19 21:29 Oxycodone HCl (Roxicodone, Oxyir) 2.5 mg Q4HP PRN PO PAIN 04/02/19 16:45 04/02/19 21:06 Oxycodone HCl (Roxicodone, Oxyir) 5 mg ASDIRECTED PRN PO PAIN 04/01/19 11:15 04/02/19 16:36 DC Pantoprazole Sodium (Protonix) 40 mg BID PO 04/03/19 21:00 Pantoprazole Sodium (Protonix) 40 mg DAILY PO 04/01/19 09:00 04/03/19 10:09 DC 04/03/19 08:52 Patient Own Medication (Patient'S Own Med) ANAGRELIDE (AGRYLIN) 0.... QAM PO 04/02/19 09:00 04/03/19 08:51 Patient Own Medication (Patient'S Own Med) ANAGRELIDE (AGRYLIN) 0.... QPM PO 04/01/19 21:00 04/02/19 21:07 Rivaroxaban (Xarelto) 10 mg DAILY@1800 PO 03/31/19 18:00 04/02/19 17:18 DC 04/02/19 17:02 Senna (Senokot) 1 tab QHS PO 03/31/19 21:00 04/02/19 11:43 DC 04/01/19 21:30 Senna (Senokot) 2 tab QHS PO 04/02/19 21:00 04/02/19 21:07 Tramadol HCl (Ultram) 25 mg Q8HP PRN PO MODERATE PAIN (PS 5-7) 03/31/19 21:00 04/01/19 11:16 DC 04/01/19 02:50 Tramadol HCl (Ultram) 50 mg Q6HP PRN PO MODERATE PAIN (PS 5-7) 03/31/19 16:30 03/31/19 17:13 ALYSSA SALINAS MD Apr 03, 2019 17:36
[2019-04-03] MEDS: APIXABAN 5 MG TAB (ELIQUIS) PO SCH ×2 (18:18→23:21)
[2019-04-03] MEDS: SENNA 8.6 MG TAB (SENOKOT) PO SCH (21:00)
[2019-04-03 21:05] VITALS: BP 120/58
[2019-04-03] MEDS: LIDOCAINE 5% (LIDODERM) PATCH TD SCH (21:16)
[2019-04-03] MEDS: oxyCODONE 5MG TAB PO PRN (23:00)
[2019-04-04 06:00] VITALS: BP 140/63
[2019-04-04 07:06] LABS: BASO % 0.4 % (0.0-1.0); EOS # 0.5 10^3/uL (0.0-0.5); EOS % 9.2 % (0.0-3.0); HEMOGLOBIN 7.8 g/dl (12.0-15.5); LYMPH # 1.3 10^3/uL (1.5-5.0); LYMPH % 25.5 % (24.0-44.0); MEAN CORPUSCULAR HEMOGLOBIN 31.6 pg (27.0-33.0); MEAN CORPUSCULAR HGB CONC 32.5 g/dl (32.0-36.5); MEAN CORPUSCULAR VOLUME 97.2 fl (80.0-96.0); MONO # 0.4 10^3/uL (0.0-0.8); NEUTROPHILS # 2.9 10^3/uL (1.5-8.5); NEUTROPHILS % 56.1 % (36.0-66.0); PLATELET COUNT, AUTOMATED 559 10^3/uL (150-450); RED BLOOD COUNT 2.47 10^6/uL (4.00-5.40); WHITE BLOOD COUNT 5.2 10^3/uL (4.0-10.0)
[2019-04-04] MEDS: PANTOPRAZOLE 40MG TAB (PROTONIX) PO SCH ×2 (08:27→21:37)
[2019-04-04] MEDS: hydroCHLOROthiazide 25 MG TAB PO SCH (08:27)
[2019-04-04] MEDS: OYSTER SHELL CALCIUM 500 MG TAB PO SCH ×2 (08:27→21:40)
[2019-04-04] MEDS: METOPROLOL TART 12.5 MG PER 1/2 TAB PO SCH ×3 (08:27→21:43)
[2019-04-04] MEDS: ANAGRELIDE 0.5 MG PO SCH ×2 (08:28→21:43)
[2019-04-04] MEDS: ACETAMINOPHEN 500 MG TAB PO SCH ×3 (08:28→21:39)
[2019-04-04] MEDS: DOCUSATE SODIUM 100 MG CAP PO SCH ×3 (08:28→21:00)
[2019-04-04] MEDS: APIXABAN 5 MG TAB (ELIQUIS) PO SCH ×2 (08:28→21:40)
[2019-04-04] MEDS: LOSARTAN 25 MG TAB PO SCH (08:28)
[2019-04-04] MEDS: THERAPEUTIC BATH LOTION 240 ML BTL TOP SCH ×3 (08:29→21:47)
[2019-04-04] MEDS: **NOTE PATIENT COMMENT** MISC XX SCH (08:30)
[2019-04-04] MEDS: REMEDY PHYTOPLEX Z-GUARD PASTE 113GM TUBE (FROM STOREROOM PRODUCT) TOP SCH ×3 (08:30→21:47)
[2019-04-04 14:00] VITALS: BP 128/55
[2019-04-04 20:00] VITALS: BP 120/59
[2019-04-04] MEDS: SENNA 8.6 MG TAB (SENOKOT) PO SCH (21:00)
[2019-04-04] MEDS: LIDOCAINE 5% (LIDODERM) PATCH TD SCH (21:00)
[2019-04-04] MEDS: oxyCODONE 5MG TAB PO PRN (21:39)
[2019-04-05 06:00] VITALS: BP 144/70
[2019-04-05] MEDS: METOPROLOL TART 12.5 MG PER 1/2 TAB PO SCH ×3 (08:03→20:20)
[2019-04-05] MEDS: ONDANSETRON 4 MG ORAL DISINTEGRATING TAB (Q0162 PER 1MG) PO PRN (08:03)
[2019-04-05] MEDS: LOSARTAN 25 MG TAB PO SCH (08:03)
[2019-04-05] MEDS: PANTOPRAZOLE 40MG TAB (PROTONIX) PO SCH ×2 (08:03→20:20)
[2019-04-05] MEDS: DOCUSATE SODIUM 100 MG CAP PO SCH ×3 (09:00→20:04)
[2019-04-05] MEDS: OYSTER SHELL CALCIUM 500 MG TAB PO SCH ×2 (09:00→20:19)
[2019-04-05] MEDS: APIXABAN 5 MG TAB (ELIQUIS) PO SCH ×2 (09:58→20:20)
[2019-04-05] MEDS: hydroCHLOROthiazide 25 MG TAB PO SCH (09:58)
[2019-04-05] MEDS: ACETAMINOPHEN 500 MG TAB PO SCH ×4 (09:58→20:06)
[2019-04-05] MEDS: ANAGRELIDE 0.5 MG PO SCH ×2 (09:59→20:19)
[2019-04-05] MEDS: THERAPEUTIC BATH LOTION 240 ML BTL TOP SCH ×3 (09:59→20:07)
[2019-04-05] MEDS: **NOTE PATIENT COMMENT** MISC XX SCH (10:00)
[2019-04-05] MEDS: REMEDY PHYTOPLEX Z-GUARD PASTE 113GM TUBE (FROM STOREROOM PRODUCT) TOP SCH ×3 (10:00→22:30)
[2019-04-05 14:00] VITALS: BP 130/72
[2019-04-05] MEDS: ANALGESIC BALM CRM 120 GM TOP SCH ×2 (16:00→20:08)
[2019-04-05 20:00] VITALS: BP 147/67
[2019-04-05] MEDS: SENNA 8.6 MG TAB (SENOKOT) PO SCH (20:05)
[2019-04-05] MEDS: LIDOCAINE 5% (LIDODERM) PATCH TD SCH (20:17)
[2019-04-05] MEDS: GABAPENTIN 100 MG CAP PO SCH (20:20)
[2019-04-05] MEDS: oxyCODONE 5MG TAB PO PRN (20:21)
[2019-04-06] MEDS: oxyCODONE 5MG TAB PO PRN ×4 (04:54→21:30)
[2019-04-06 05:43] VITALS: BP 131/85
[2019-04-06 06:48] LABS: BASO % 0.6 % (0.0-1.0); EOS # 0.4 10^3/uL (0.0-0.5); EOS % 8.7 % (0.0-3.0); HEMATOCRIT 27.5 % (36.0-47.0); HEMOGLOBIN 8.6 g/dl (12.0-15.5); LYMPH # 1.3 10^3/uL (1.5-5.0); LYMPH % 26.3 % (24.0-44.0); MEAN CORPUSCULAR HEMOGLOBIN 31.3 pg (27.0-33.0); MEAN CORPUSCULAR HGB CONC 31.3 g/dl (32.0-36.5); MONO # 0.4 10^3/uL (0.0-0.8); MONO % 8.9 % (0.0-5.0); NEUTROPHILS # 2.6 10^3/uL (1.5-8.5); NEUTROPHILS % 54.3 % (36.0-66.0); PLATELET COUNT, AUTOMATED 461 10^3/uL (150-450); RED BLOOD COUNT 2.75 10^6/uL (4.00-5.40); WHITE BLOOD COUNT 4.8 10^3/uL (4.0-10.0)
[2019-04-06 07:11] LABS: CALCIUM LEVEL 8.6 MG/DL (8.8-10.2); CREATININE FOR GFR 1.22 MG/DL (0.55-1.30); GLOMERULAR FILTRATION RATE 44.6 (>32); POTASSIUM SERUM 4.2 MEQ/L (3.5-5.1)
[2019-04-06] MEDS: ACETAMINOPHEN 500 MG TAB PO SCH ×3 (09:00→21:00)
[2019-04-06] MEDS: APIXABAN 5 MG TAB (ELIQUIS) PO SCH ×2 (09:14→21:29)
[2019-04-06] MEDS: PANTOPRAZOLE 40MG TAB (PROTONIX) PO SCH ×2 (09:14→21:29)
[2019-04-06] MEDS: METOPROLOL TART 12.5 MG PER 1/2 TAB PO SCH ×3 (09:14→21:00)
[2019-04-06] MEDS: hydroCHLOROthiazide 25 MG TAB PO SCH (09:15)
[2019-04-06] MEDS: LOSARTAN 25 MG TAB PO SCH (09:15)
[2019-04-06] MEDS: ANAGRELIDE 0.5 MG PO SCH ×2 (09:15→21:35)
[2019-04-06] MEDS: DOCUSATE SODIUM 100 MG CAP PO SCH (09:15)
[2019-04-06] MEDS: OYSTER SHELL CALCIUM 500 MG TAB PO SCH ×2 (09:15→21:29)
[2019-04-06] MEDS: REMEDY PHYTOPLEX Z-GUARD PASTE 113GM TUBE (FROM STOREROOM PRODUCT) TOP SCH ×3 (09:16→21:00)
[2019-04-06] MEDS: THERAPEUTIC BATH LOTION 240 ML BTL TOP SCH ×3 (09:16→21:31)
[2019-04-06] MEDS: ANALGESIC BALM CRM 120 GM TOP SCH ×3 (09:17→21:00)
[2019-04-06] MEDS: **NOTE PATIENT COMMENT** MISC XX SCH (09:17)
--- NOTE | 2019-04-06 09:25 | REP ---
Bilateral lower extremity deep vein duplex ultrasound: Right lower extremity: The deep veins are noncompressible, however, demonstrate wall to wall Doppler color flow. No filling defects are identified. The non-compressibility likely secondary to soft tissue edema and tension from recent trauma. No deep vein thrombus is identified on Doppler color flow. Left lower extremity: The deep veins demonstrate normal compression, normal Doppler color flow and normal Doppler waveforms with respiration augmentation at multiple levels. There is no deep vein thrombus on the left. Electronically Signed by eTn Trevizo MD 04/06/2019 09:17 A
[2019-04-06] MEDS ORDERED: NS 1,000 ML IV ONE (11:00)
[2019-04-06] MEDS ORDERED: GASTROGRAFIN SOLUTION 30ML PO SCH (11:00)
[2019-04-06] MEDS ORDERED: ISOVUE-370 76% 100ML VIAL (Q9967) As Ordered ONE (11:39)
--- NOTE | 2019-04-06 11:47 | IPNPDOC ---
PM&R Progress Note DATE OF SERVICE: Apr 06, 2019 Tenderizer Tender Progress Note Subjective: Patient seen this morning stating she has had no chest pressure or difficulty breathing over the weekend, but does have loose stools. She reports the muscle rub and gabapentin started last night helped relieve her right thigh cramping. REVIEW OF SYSTEMS: The following is a completed review of systems and has been reviewed. Review of systems otherwise unremarkable. PAIN: Patient self reports right hip pain EYES: No recent vision changes EARS, NOSE, & THROAT: No throat pain, or dysphagia, or rhinorrhea CARDIOVASCULAR: Denies chest pain or palpitations PULMONARY: Denies shortness of breath GASTROINTESTINAL: + loose stools GENITOURINARY: denies dysuria MUSCULOSKELETAL: right hip fracture NEUROLOGICAL:no focal tremor or seizure activity HEMATOLOGICAL: +thrombocythemia SKIN: right hip incision PSYCHIATRIC: Unremarkable All other review of systems found to be negative. PHYSICAL EXAMINATION: VITAL SIGNS: Please see below. GENERAL: Pleasant and cooperative. No acute distress. thin, +sedated HEENT: PERRL. Extraocular movements intact. Clear conjunctiva CARDIOVASCULAR: Regular rate and rhythm. +systolic murmur, rubs, or gallops LUNGS: Clear to auscultation bilaterally. No wheezes. No rhonchi ABDOMEN: Soft, nontender, nondistended. Positive bowel sounds. Normal active bowel sounds NEUROLOGICAL: Alert and oriented times three. Cranial nerves II through XII grossly intact. Sensation grossly intact EXTREMITIES: 5\5 strength bilateral upper extremities. 5\5 strength right ankle PF, DF and EHL extension (limited due to surgery). 5/5 strength in left lower extremity. (-) Homans bilat (+) RLE edema SKIN: right hip incision with scant serous drainage, mild swelling, no induration Right elbow with plaque like lesion ASSESSMENT:83-year-old F with past medical history of HTN and thrombocythemia who presents status post fall with right hip fracture PLAN: 1. Rehab:- PT/OT advance gait and ADl training, strengthen/stretch/maintain ROM all 4 limbs, ambulating with RW 2. Neuro: no known hx 3. Cardiac: HTN c/u losartan and HCTZ, patient with hyperkalemia on inpatient side, c/u lower losartan and increased HCTZ dosing for optimal BP control- medicine consulted to assist in management -+systolic murmur, patient without recent ECHO on file and no close cardiology follow-up- will refer on d/c -c/u metoprolol tartrate 12.5 TID for tachycardia-improving 4. Resp: encourage incentive spirometry and monitor for infection, patient with RLE DVT, recent CTA negative for PE, monitor 5. Heme: hx of thrombocythemia- med rec error recognized and corrected with pharmacy, patient is NOT on Amiloride (did not receive this medication at any time during hospital stay), but has been on Anagrelide which has been started -post-op anemia improved s/p transfusion, monitor for further blood loss-hgb stable 6. GI ppx: protonix -CTA of chest showed incidental pancreatic duct dilation, will be able to visualize more today with CT abd/pelvis (ordered to look for proximal migration of DVT) 7. DVT ppx: +acute right pop-fem DVT discussed case with vascular surgery who recommends switching to Eliquis, CTA negative for PE 04-02-19, repeat Doppler today shows no DVT on the RLE, will order CT abd/pelvis to look for proximal migration into the pelvic veins as this cannot be viewed well via US- if migrates proximally, will formally consult [employer] for IVC filter 8. Ortho: s/p right hip ORIF, WBAT- consulted to assist in management 9. Pain: d/c'd morphine 15mg BID due to nausea and sedation, d/c'd tramadol 25mg as well - c/u oxycodone 2.5mg prn , c/u Tylenol 1gm TID standing -c/u lidoderm patches to back and bilat hips -c/u gabapentin 100mg qHS and Menthol salicylate 10. Skin- psoriasis, c/u lotion to UE 11. Dispo: TBD Allergies Coded Allergies: No Known Drug Allergies (Verified Allergy, Unknown, 03/29/19) latex (Verified Allergy, Unknown, unknown, 03/29/19) Vital Signs Vital Signs Date Time Temp Pulse Resp B/P (MAP) Pulse Ox O2 Delivery O2 Flow Rate FiO2 04/06/19 05:44 18 04/06/19 05:43 97.9 93 131/85 (100) 95 Room Air Laboratory Data CBC/BMP Laboratory Tests 04/06/19 06:20 Labs 24H Laboratory Tests 2 04/06/19 06:20: Immature Granulocyte % (Auto) 1.2, Neutrophils (%) (Auto) 54.3, Lymphocytes (%) (Auto) 26.3, Monocytes (%) (Auto) 8.9H, Eosinophils (%) (Auto) 8.7H, Basophils (%) (Auto) 0.6, Neutrophils # (Auto) 2.6, Lymphocytes # (Auto) 1.3L, Monocytes # (Auto) 0.4, Eosinophils # (Auto) 0.4, Basophils # (Auto) 0.0, Nucleated Red Blood Cells % (auto) 0.0, Anion Gap 4L, Glomerular Filtration Rate 44.6, Calcium Level 8.6L Microbiology Microbiology 04/05/19 Stool Occult Blood (FELIX) - Final, Complete Current Medications Current Medications Current Medications Medications (Trade) Dose Ordered Sig/Elena Route PRN Reason Start Time Stop Time Status Last Admin Dose Admin Acetaminophen (Tylenol Tab) 1,000 mg TID PO 03/31/19 21:00 04/04/19 21:39 Amiloride HCl (Midamor) 5 mg DAILY PO 04/01/19 09:00 03/31/19 17:19 DC Apixaban (Eliquis) 5 mg BID PO 04/10/19 09:00 Apixaban (Eliquis) 10 mg BID PO 04/04/19 09:00 04/09/19 21:01 04/06/19 09:14 Apixaban (Eliquis) 10 mg Q6H PO 04/03/19 18:00 04/04/19 00:01 DC 04/03/19 23:21 Calcium Carbonate (Oscal) 500 mg BID PO 03/31/19 21:00 04/06/19 09:15 Diatrizoate Meglum/ Diatrizoate Sod (Gastrografin) 10 ml Q30M PO 04/06/19 11:00 04/06/19 11:31 DC Docusate Sodium (Colace) 100 mg BID PO 03/31/19 21:00 04/02/19 11:43 DC 04/02/19 08:52 Docusate Sodium (Colace) 100 mg TID PO 04/02/19 16:00 04/06/19 09:15 Ferrous Gluconate (Fergon) 324 mg BID PO 04/06/19 09:00 Gabapentin (Neurontin) 100 mg QHS PO 04/05/19 21:00 04/05/19 20:20 Home Med (Med Rec Complete!) ASDIRECTED XX 03/31/19 17:30 03/31/19 17:23 DC Hydrochlorothiazide (Hydrodiuril) 25 mg DAILY PO 04/01/19 09:00 04/06/19 09:15 Lidocaine (Lidoderm Patch) 2 patch DAILY@2100 TD 03/31/19 21:00 04/05/19 20:17 Losartan Potassium (Cozaar) 25 mg DAILY PO 04/01/19 09:00 04/06/19 09:15 Magnesium Hydroxide (Milk Of Magnesia) 30 ml DAILYPRN PRN PO CONSTIPATION 03/31/19 16:30 Menthol/Methyl Salicylate (Bengay Cream) apply to inner thi... TID TOP 04/05/19 16:00 04/06/19 09:17 Metoprolol Tartrate (Lopressor) 12.5 mg TID PO 04/01/19 09:00 04/06/19 09:14 Morphine Sulfate (Ms Contin) 15 mg BID PO 03/31/19 21:00 04/01/19 11:16 DC 04/01/19 08:41 Multi-Ingredient Lotion (Rosalind Lotion) 1 dose TID TOP 04/02/19 16:00 04/06/19 09:16 Non-Formulary Medication ( See Comment Field Below ) REMOVE LIDODERM PATCH DAILY XX 04/01/19 09:00 04/06/19 09:17 Ondansetron HCl (Zofran Odt) 4 mg Q4HP PRN PO NAUSEA OR VOMITING 04/01/19 11:15 04/05/19 08:03 Oxycodone HCl (Roxicodone, Oxyir) 2.5 mg DAILY@0800,1200 PO 04/01/19 12:00 04/02/19 16:36 DC 04/02/19 12:10 Oxycodone HCl (Roxicodone, Oxyir) 2.5 mg DAILY@1600,2000 PO 04/01/19 16:00 04/02/19 16:36 DC 04/01/19 21:29 Oxycodone HCl (Roxicodone, Oxyir) 2.5 mg Q4HP PRN PO PAIN 04/02/19 16:45 04/06/19 04:54 Oxycodone HCl (Roxicodone, Oxyir) 5 mg ASDIRECTED PRN PO PAIN 04/01/19 11:15 04/02/19 16:36 DC Pantoprazole Sodium (Protonix) 40 mg BID PO 04/03/19 21:00 04/06/19 09:14 Pantoprazole Sodium (Protonix) 40 mg DAILY PO 04/01/19 09:00 04/03/19 10:09 DC 04/03/19 08:52 Patient Own Medication (Patient'S Own Med) ANAGRELIDE (AGRYLIN) 0.... QAM PO 04/02/19 09:00 04/06/19 09:15 Patient Own Medication (Patient'S Own Med) ANAGRELIDE (AGRYLIN) 0.... QPM PO 04/01/19 21:00 04/05/19 20:19 Rivaroxaban (Xarelto) 10 mg DAILY@1800 PO 03/31/19 18:00 04/02/19 17:18 DC 04/02/19 17:02 Senna (Senokot) 1 tab QHS PO 03/31/19 21:00 04/02/19 11:43 DC 04/01/19 21:30 Senna (Senokot) 1 tab QHS PO 04/06/19 21:00 Senna (Senokot) 2 tab QHS PO 04/02/19 21:00 04/06/19 10:09 DC 04/02/19 21:07 Tramadol HCl (Ultram) 25 mg Q8HP PRN PO MODERATE PAIN (PS 5-7) 03/31/19 21:00 04/01/19 11:16 DC 04/01/19 02:50 Tramadol HCl (Ultram) 50 mg Q6HP PRN PO MODERATE PAIN (PS 5-7) 03/31/19 16:30 03/31/19 17:13 ALYSSA SALINAS MD Apr 06, 2019 11:47
[2019-04-06] MEDS: FERROUS GLUCONATE 324 MG TAB PO SCH ×2 (12:03→21:29)
[2019-04-06] MEDS: GASTROGRAFIN SOLUTION 30ML PO SCH ×2 (14:05→14:34)
[2019-04-06 14:45] VITALS: BP 103/51
[2019-04-06 21:00] VITALS: BP 115/55
[2019-04-06] MEDS ORDERED: SENNA 8.6 MG TAB (SENOKOT) PO SCH (21:00)
[2019-04-06] MEDS: GABAPENTIN 100 MG CAP PO SCH (21:29)
[2019-04-06] MEDS: LIDOCAINE 5% (LIDODERM) PATCH TD SCH (21:30)
[2019-04-07 06:00] VITALS: BP 137/63
[2019-04-07 07:23] LABS: CALCIUM LEVEL 8.4 MG/DL (8.8-10.2); CREATININE FOR GFR 1.11 MG/DL (0.55-1.30); GLOMERULAR FILTRATION RATE 49.7 (>32); POTASSIUM SERUM 4.3 MEQ/L (3.5-5.1)
--- NOTE | 2019-04-07 07:49 | REP ---
CT ABDOMEN AND PELVIS WITH ORAL AND IV CONTRAST: TECHNIQUE: Axial contrast enhanced images from the lung bases to the pubic symphysis using 100 mL Isovue 370 intravenous contrast material with multiplanar reformations. Visualized lung bases demonstrate mild fibroatelectatic change. There is a calcification in the dome of the liver likely representing a small calcified granuloma. The spleen is mildly enlarged with a length of 14.4 cm. Adrenal glands are normal. Pancreas demonstrates no mass. There is mild dilatation of the pancreatic duct up to 4 mm. The common bile duct is upper limits of normal at 7 mm. Gallbladder is only mildly distended and grossly unremarkable. Kidneys demonstrate no hydronephrosis or definite mass. There is atherosclerotic calcification of the abdominal aorta without aneurysm. There is no adenopathy, free air or free fluid. No bowel wall thickening is seen. No pelvic mass is seen. Urinary bladder is mildly distended and grossly unremarkable. Relatively acute fracture of proximal right femur is noted with metallic internal fixation in both proximal femurs. There are multiple compression deformities of thoracolumbar vertebral bodies similar to prior CT lumbar spine 08/23/2014. No filling defect or evidence of thrombus is seen in the pelvic veins. IMPRESSION: Mild splenomegaly. Mild dilatation of the pancreatic duct up to 4 mm. No pancreatic mass is seen. No filling defect or evidence of thrombus is seen in the pelvic veins. Electronically Signed by Ten Julien MD 04/08/2019 09:18 A
[2019-04-07] MEDS: FERROUS GLUCONATE 324 MG TAB PO SCH ×2 (08:33→21:00)
[2019-04-07] MEDS: METOPROLOL TART 12.5 MG PER 1/2 TAB PO SCH ×3 (08:33→21:00)
[2019-04-07] MEDS: APIXABAN 5 MG TAB (ELIQUIS) PO SCH ×2 (08:34→21:00)
[2019-04-07] MEDS: OYSTER SHELL CALCIUM 500 MG TAB PO SCH ×2 (08:34→21:00)
[2019-04-07] MEDS: PANTOPRAZOLE 40MG TAB (PROTONIX) PO SCH ×2 (08:34→21:00)
[2019-04-07] MEDS: LOSARTAN 25 MG TAB PO SCH (08:34)
[2019-04-07] MEDS: hydroCHLOROthiazide 25 MG TAB PO SCH (08:34)
[2019-04-07] MEDS: ACETAMINOPHEN 500 MG TAB PO SCH ×3 (08:35→21:00)
[2019-04-07] MEDS: ANAGRELIDE 0.5 MG PO SCH ×2 (08:35→21:01)
[2019-04-07] MEDS: ANALGESIC BALM CRM 120 GM TOP SCH ×3 (08:36→21:00)
[2019-04-07] MEDS: THERAPEUTIC BATH LOTION 240 ML BTL TOP SCH ×3 (08:36→21:01)
[2019-04-07] MEDS: REMEDY PHYTOPLEX Z-GUARD PASTE 113GM TUBE (FROM STOREROOM PRODUCT) TOP SCH ×3 (08:36→21:01)
[2019-04-07] MEDS: oxyCODONE 5MG TAB PO PRN ×3 (08:37→21:06)
[2019-04-07] MEDS: **NOTE PATIENT COMMENT** MISC XX SCH (11:08)
[2019-04-07 14:00] VITALS: BP 105/52
--- NOTE | 2019-04-07 14:41 | IPNPDOC ---
PM&R Progress Note DATE OF SERVICE: Apr 07, 2019 Training And Development Coordinator Progress Note Subjective: Patient seen this morning after hacing received IVF stating she is feeling well overall, but her legs feel swollen. REVIEW OF SYSTEMS: The following is a completed review of systems and has been reviewed. Review of systems otherwise unremarkable. PAIN: Patient self reports right hip pain EYES: No recent vision changes EARS, NOSE, & THROAT: No throat pain, or dysphagia, or rhinorrhea CARDIOVASCULAR: Denies chest pain or palpitations PULMONARY: Denies shortness of breath GASTROINTESTINAL: + loose stools (improving) GENITOURINARY: denies dysuria MUSCULOSKELETAL: right hip fracture NEUROLOGICAL:no focal tremor or seizure activity HEMATOLOGICAL: +thrombocythemia SKIN: right hip incision PSYCHIATRIC: Unremarkable All other review of systems found to be negative. PHYSICAL EXAMINATION: VITAL SIGNS: Please see below. GENERAL: Pleasant and cooperative. No acute distress. thin, +sedated HEENT: PERRL. Extraocular movements intact. Clear conjunctiva CARDIOVASCULAR: Regular rate and rhythm. +systolic murmur, rubs, or gallops LUNGS: Clear to auscultation bilaterally. No wheezes. No rhonchi ABDOMEN: Soft, nontender, nondistended. Positive bowel sounds. Normal active bowel sounds NEUROLOGICAL: Alert and oriented times three. Cranial nerves II through XII grossly intact. Sensation grossly intact EXTREMITIES: 5\5 strength bilateral upper extremities. 5\5 strength right ankle PF, DF and EHL extension (limited due to surgery). 5/5 strength in left lower extremity. (-) Homans bilat (+) RLE >LLE edema SKIN: right hip incision with scant serous drainage, mild swelling, no induration Right elbow with plaque like lesion ASSESSMENT:83-year-old F with past medical history of HTN and thrombocythemia who presents status post fall with right hip fracture PLAN: 1. Rehab:- PT/OT advance gait and ADl training, strengthen/stretch/maintain ROM all 4 limbs, ambulating with RW 2. Neuro: no known hx 3. Cardiac: HTN c/u losartan and HCTZ, patient with hyperkalemia on inpatient side, c/u lower losartan and increased HCTZ dosing for optimal BP control- medicine consulted to assist in management -+systolic murmur, patient without recent ECHO on file and no close cardiology follow-up- will refer on d/c -c/u metoprolol tartrate 12.5 TID for tachycardia-improving -will fluid restrict for suspected degree of CHF and edema on today's exam 4. Resp: encourage incentive spirometry and monitor for infection, patient with RLE DVT, recent CTA negative for PE, monitor 5. Heme: hx of thrombocythemia- med rec error recognized and corrected with pharmacy, patient is NOT on Amiloride (did not receive this medication at any time during hospital stay), but has been on Anagrelide which has been started -post-op anemia improved s/p transfusion, monitor for further blood loss-hgb stable 6. GI ppx: protonix -CTA of chest showed incidental pancreatic duct dilation, CT abd/pelvis 04-06-19 sows no mass- f/u with PMD 7. DVT ppx: +acute right pop-fem DVT discussed case with vascular surgery who recommends switching to Eliquis, CTA negative for PE 04-02-19, repeat Doppler today shows no DVT on the RLE, CT abd/pelvis ordered to look for proximal m igration into the pelvic veins as this cannot be viewed well via US, discussed imaging with Dr. Larios and Dr. Julien and no migration noted, c/u Eliquis 3 months- 8. Ortho: s/p right hip ORIF, WBAT- consulted to assist in management 9. Pain: d/c'd morphine 15mg BID due to nausea and sedation, d/c'd tramadol 25mg as well - c/u oxycodone 2.5mg prn , c/u Tylenol 1gm TID standing -c/u lidoderm patches to back and bilat hips -c/u gabapentin 100mg qHS and Menthol salicylate 10. Skin- psoriasis, c/u lotion to UE 11. Dispo: TBD Allergies Coded Allergies: No Known Drug Allergies (Verified Allergy, Unknown, 03/29/19) latex (Verified Allergy, Unknown, unknown, 03/29/19) Vital Signs Vital Signs Date Time Temp Pulse Resp B/P (MAP) Pulse Ox O2 Delivery O2 Flow Rate FiO2 04/07/19 14:00 98.2 109 20 105/52 (69) 95 Room Air Laboratory Data CBC/BMP Laboratory Tests 04/07/19 06:20 Labs 24H Laboratory Tests 2 04/07/19 06:20: Anion Gap 6L, Glomerular Filtration Rate 49.7, Calcium Level 8.4L Microbiology Microbiology 04/05/19 Stool Occult Blood (FELIX) - Final, Complete Current Medications Current Medications Current Medications Medications (Trade) Dose Ordered Sig/Elena Route PRN Reason Start Time Stop Time Status Last Admin Dose Admin Acetaminophen (Tylenol Tab) 1,000 mg TID PO 03/31/19 21:00 04/04/19 21:39 Amiloride HCl (Midamor) 5 mg DAILY PO 04/01/19 09:00 03/31/19 17:19 DC Apixaban (Eliquis) 5 mg BID PO 04/10/19 09:00 Apixaban (Eliquis) 10 mg BID PO 04/04/19 09:00 04/09/19 21:01 04/07/19 08:34 Apixaban (Eliquis) 10 mg Q6H PO 04/03/19 18:00 04/04/19 00:01 DC 04/03/19 23:21 Calcium Carbonate (Oscal) 500 mg BID PO 03/31/19 21:00 04/07/19 08:34 Diatrizoate Meglum/ Diatrizoate Sod (Gastrografin) 10 ml Q30M PO 04/06/19 11:00 04/06/19 11:31 Cancel Diatrizoate Meglum/ Diatrizoate Sod (Gastrografin) 10 ml Q30M PO 04/06/19 14:00 04/06/19 14:31 DC 04/06/19 14:34 Docusate Sodium (Colace) 100 mg BID PO 03/31/19 21:00 04/02/19 11:43 DC 04/02/19 08:52 Docusate Sodium (Colace) 100 mg TID PO 04/02/19 16:00 04/06/19 13:33 DC 04/06/19 09:15 Ferrous Gluconate (Fergon) 324 mg BID PO 04/06/19 09:00 04/07/19 08:33 Gabapentin (Neurontin) 100 mg QHS PO 04/05/19 21:00 04/06/19 21:29 Home Med (Med Rec Complete!) ASDIRECTED XX 03/31/19 17:30 03/31/19 17:23 DC Hydrochlorothiazide (Hydrodiuril) 25 mg DAILY PO 04/01/19 09:00 04/07/19 08:34 Lidocaine (Lidoderm Patch) 2 patch DAILY@2100 TD 03/31/19 21:00 04/06/19 21:30 Losartan Potassium (Cozaar) 25 mg DAILY PO 04/01/19 09:00 04/07/19 08:34 Magnesium Hydroxide (Milk Of Magnesia) 30 ml DAILYPRN PRN PO CONSTIPATION 03/31/19 16:30 Menthol/Methyl Salicylate (Bengay Cream) apply to inner thi... TID TOP 04/05/19 16:00 04/07/19 08:36 Metoprolol Tartrate (Lopressor) 12.5 mg TID PO 04/01/19 09:00 04/07/19 08:33 Morphine Sulfate (Ms Contin) 15 mg BID PO 03/31/19 21:00 04/01/19 11:16 DC 04/01/19 08:41 Multi-Ingredient Lotion (Rosalind Lotion) 1 dose TID TOP 04/02/19 16:00 04/07/19 08:36 Non-Formulary Medication ( See Comment Field Below ) REMOVE LIDODERM PATCH DAILY XX 04/01/19 09:00 04/07/19 11:08 Ondansetron HCl (Zofran Odt) 4 mg Q4HP PRN PO NAUSEA OR VOMITING 04/01/19 11:15 04/05/19 08:03 Oxycodone HCl (Roxicodone, Oxyir) 2.5 mg DAILY@0800,1200 PO 04/01/19 12:00 04/02/19 16:36 DC 04/02/19 12:10 Oxycodone HCl (Roxicodone, Oxyir) 2.5 mg DAILY@1600,2000 PO 04/01/19 16:00 04/02/19 16:36 DC 04/01/19 21:29 Oxycodone HCl (Roxicodone, Oxyir) 2.5 mg Q4HP PRN PO PAIN 04/02/19 16:45 04/07/19 08:37 Oxycodone HCl (Roxicodone, Oxyir) 5 mg ASDIRECTED PRN PO PAIN 04/01/19 11:15 04/02/19 16:36 DC Pantoprazole Sodium (Protonix) 40 mg BID PO 04/03/19 21:00 04/07/19 08:34 Pantoprazole Sodium (Protonix) 40 mg DAILY PO 04/01/19 09:00 04/03/19 10:09 DC 04/03/19 08:52 Patient Own Medication (Patient'S Own Med) ANAGRELIDE (AGRYLIN) 0.... QAM PO 04/02/19 09:00 04/07/19 08:35 Patient Own Medication (Patient'S Own Med) ANAGRELIDE (AGRYLIN) 0.... QPM PO 04/01/19 21:00 04/06/19 21:35 Rivaroxaban (Xarelto) 10 mg DAILY@1800 PO 03/31/19 18:00 04/02/19 17:18 DC 04/02/19 17:02 Senna (Senokot) 1 tab QHS PO 03/31/19 21:00 04/02/19 11:43 DC 04/01/19 21:30 Senna (Senokot) 1 tab QHS PO 04/06/19 21:00 04/06/19 13:33 DC Senna (Senokot) 2 tab QHS PO 04/02/19 21:00 04/06/19 10:09 DC 04/02/19 21:07 Tramadol HCl (Ultram) 25 mg Q8HP PRN PO MODERATE PAIN (PS 5-7) 03/31/19 21:00 04/01/19 11:16 DC 04/01/19 02:50 Tramadol HCl (Ultram) 50 mg Q6HP PRN PO MODERATE PAIN (PS 5-7) 03/31/19 16:30 03/31/19 17:13 ALYSSA SALINAS MD Apr 07, 2019 14:41
[2019-04-07 20:00] VITALS: BP 142/63
[2019-04-07] MEDS: GABAPENTIN 100 MG CAP PO SCH (21:00)
[2019-04-07] MEDS: LIDOCAINE 5% (LIDODERM) PATCH TD SCH (21:01)
[2019-04-08 06:00] VITALS: BP 129/63
[2019-04-08 07:03] LABS: BASO % 0.2 % (0.0-1.0); EOS # 0.2 10^3/uL (0.0-0.5); EOS % 4.4 % (0.0-3.0); HEMATOCRIT 25.3 % (36.0-47.0); HEMOGLOBIN 8.2 g/dl (12.0-15.5); LYMPH # 1.1 10^3/uL (1.5-5.0); LYMPH % 21.7 % (24.0-44.0); MEAN CORPUSCULAR HEMOGLOBIN 31.7 pg (27.0-33.0); MEAN CORPUSCULAR HGB CONC 32.4 g/dl (32.0-36.5); MEAN CORPUSCULAR VOLUME 97.7 fl (80.0-96.0); MONO # 0.5 10^3/uL (0.0-0.8); MONO % 9.1 % (0.0-5.0); NEUTROPHILS # 3.4 10^3/uL (1.5-8.5); NEUTROPHILS % 63.8 % (36.0-66.0); PLATELET COUNT, AUTOMATED 331 10^3/uL (150-450); RED BLOOD COUNT 2.59 10^6/uL (4.00-5.40); WHITE BLOOD COUNT 5.3 10^3/uL (4.0-10.0)
[2019-04-08] MEDS: oxyCODONE 5MG TAB PO PRN (07:03)
[2019-04-08 07:27] LABS: CALCIUM LEVEL 8.7 MG/DL (8.8-10.2); CREATININE FOR GFR 1.07 MG/DL (0.55-1.30); GLOMERULAR FILTRATION RATE 51.9 (>32); POTASSIUM SERUM 4.2 MEQ/L (3.5-5.1)
[2019-04-08] MEDS ORDERED: ISOVUE-370 76% 100ML VIAL (Q9967) As Ordered ONE ×2 (08:11→08:16)
[2019-04-08] MEDS: APIXABAN 5 MG TAB (ELIQUIS) PO SCH (08:25)
[2019-04-08 08:38] LABS: INR 1.81; PROTHROMBIN TIME 20.8 SECONDS (11.8-14.0)
[2019-04-08 08:39] VITALS: BP_SYST 128; BP_SYST 204; BP_DIAS 141; BP_DIAS 58
[2019-04-08 08:46] LABS: BLOOD UREA NITROGEN 24 MG/DL (7-18); CALCIUM LEVEL 8.5 MG/DL (8.8-10.2); CARBON DIOXIDE LEVEL 28 MEQ/L (21-32); CHLORIDE LEVEL 102 MEQ/L (98-107); CK-MB VALUE MASS 1.5 NG/ML (<3.6); CPK CREATINE PHOSPHOKINASE 30 U/L (26-192); GLOMERULAR FILTRATION RATE 41.4 (>32); GLUCOSE, FASTING 214 MG/DL (70-100); POTASSIUM SERUM 4.2 MEQ/L (3.5-5.1); SODIUM LEVEL 136 MEQ/L (136-145); TROPONIN I < 0.02 NG/ML (< 0.10)
[2019-04-08 08:51] LABS: HEMATOCRIT 30.1 % (36.0-47.0); HEMOGLOBIN 9.3 g/dl (12.0-15.5); MEAN CORPUSCULAR HEMOGLOBIN 30.9 pg (27.0-33.0); MEAN CORPUSCULAR HGB CONC 30.9 g/dl (32.0-36.5); PLATELET COUNT, AUTOMATED 512 10^3/uL (150-450); RED BLOOD COUNT 3.01 10^6/uL (4.00-5.40); WHITE BLOOD COUNT 14.9 10^3/uL (4.0-10.0)
--- NOTE | 2019-04-08 09:06 | REP ---
CT of the chest with IV contrast, CT pulmonary angiography: Comparisons are a portable plain film study dated 03/29/[address] dated 04/02/2019. There are no emboli in the pulmonary trunk or central pulmonary arteries. There are no emboli in the pulmonary lobe or segment branches. There are no infiltrates or pleural effusions. There is minor dependent atelectasis. There is no mediastinal, hilar or axillary adenopathy. The thoracic aorta is unremarkable. Cardiac size is normal. There is no pericardial effusion. On the prior study in the upper abdomen the pancreatic duct appeared dilated. The pancreas is not included on the current scan. Impression: There are no pulmonary emboli. There are no infiltrates or pleural effusions. There are no masses, nodules or adenopathy. Electronically Signed by Ten Trevizo MD 04/08/2019 08:59 A
[2019-04-09] MEDS ORDERED: METO1TAB32 PO (07:04)
[2019-04-09] MEDS ORDERED: OXYC-517 PO (07:04)
[2019-04-09] MEDS ORDERED: GABA-1171 PO (07:04)
[2019-04-09] MEDS ORDERED: ELIQ5TAB PO (07:04)
[2019-04-09] MEDS ORDERED: FERR32TA PO (07:04)
[2019-04-09] MEDS ORDERED: PANT40TA3 PO (07:04)
[2019-04-09 11:10] VITALS: BP 123/60
[2019-04-09] MEDS: oxyCODONE 5MG TAB PO PRN ×2 (13:21→22:14)
[2019-04-09] MEDS ORDERED: PILL CUTTER 1 EACH XX PRN (13:30)
[2019-04-09] MEDS ORDERED: ONDANSETRON 4 MG ORAL DISINTEGRATING TAB (Q0162 PER 1MG) PO PRN (13:30)
[2019-04-09] MEDS ORDERED: MOM 30ML SUSPENSION UDC PO PRN (13:30)
[2019-04-09 14:00] VITALS: BP 139/63
[2019-04-09] MEDS ORDERED: THERAPEUTIC BATH LOTION 240 ML BTL TOP SCH (16:00)
[2019-04-09] MEDS: REMEDY PHYTOPLEX Z-GUARD PASTE 113GM TUBE (FROM STOREROOM PRODUCT) TOP SCH ×2 (16:00→22:17)
[2019-04-09] MEDS: ACETAMINOPHEN 500 MG TAB PO SCH ×2 (16:00→21:00)
[2019-04-09] MEDS: THERAPEUTIC BATH LOTION 240 ML BTL TOP SCH ×2 (16:00→21:00)
[2019-04-09] MEDS: LOSARTAN 25 MG TAB PO SCH (16:10)
[2019-04-09] MEDS: hydroCHLOROthiazide 25 MG TAB PO SCH (16:10)
[2019-04-09] MEDS: ANALGESIC BALM CRM 120 GM TOP SCH ×2 (16:11→21:00)
[2019-04-09] MEDS ORDERED: LIDOCAINE 5% (LIDODERM) PATCH TD SCH (21:00)
[2019-04-09] MEDS ORDERED: APIXABAN 5 MG TAB (ELIQUIS) PO SCH (21:00)
[2019-04-09 21:56] VITALS: BP 121/58
[2019-04-09] MEDS: METOPROLOL SUCC *XL* 25MG TAB (TopROL *XL*) PO SCH (22:11)
[2019-04-09] MEDS: OYSTER SHELL CALCIUM 500 MG TAB PO SCH (22:11)
[2019-04-09] MEDS: GABAPENTIN 100 MG CAP PO SCH (22:11)
[2019-04-09] MEDS: FERROUS GLUCONATE 324 MG TAB PO SCH (22:11)
[2019-04-09] MEDS: PANTOPRAZOLE 40MG TAB (PROTONIX) PO SCH (22:15)
[2019-04-09] MEDS: ANAGRELIDE 0.5 MG PO SCH (22:15)
--- NOTE | 2019-04-10 00:38 | ECGEPIP ---
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 HEART RATE WAS SLOWER AND THERE WERE NO PACS Electronically Signed on 04-10-2019 0:38:06 EST by Michael Allison
[2019-04-10 08:35] LABS: BASO % 0.4 % (0.0-1.0); EOS # 0.2 10^3/uL (0.0-0.5); EOS % 4.4 % (0.0-3.0); HEMATOCRIT 25.7 % (36.0-47.0); HEMOGLOBIN 8.2 g/dl (12.0-15.5); LYMPH % 18.9 % (24.0-44.0); MEAN CORPUSCULAR HEMOGLOBIN 31.5 pg (27.0-33.0); MEAN CORPUSCULAR HGB CONC 31.9 g/dl (32.0-36.5); MEAN CORPUSCULAR VOLUME 98.8 fl (80.0-96.0); MONO # 0.3 10^3/uL (0.0-0.8); MONO % 6.2 % (0.0-5.0); NEUTROPHILS # 3.5 10^3/uL (1.5-8.5); NEUTROPHILS % 68.9 % (36.0-66.0); PLATELET COUNT, AUTOMATED 234 10^3/uL (150-450)
[2019-04-10] MEDS: FERROUS GLUCONATE 324 MG TAB PO SCH ×2 (08:44→20:57)
[2019-04-10] MEDS: hydroCHLOROthiazide 25 MG TAB PO SCH (08:44)
[2019-04-10] MEDS: OYSTER SHELL CALCIUM 500 MG TAB PO SCH ×2 (08:44→20:56)
[2019-04-10] MEDS: APIXABAN 5 MG TAB (ELIQUIS) PO SCH ×2 (08:44→20:57)
[2019-04-10] MEDS: PANTOPRAZOLE 40MG TAB (PROTONIX) PO SCH ×2 (08:45→20:57)
[2019-04-10] MEDS: oxyCODONE 5MG TAB PO PRN (08:46)
[2019-04-10] MEDS: ACETAMINOPHEN 500 MG TAB PO SCH ×3 (08:46→20:56)
[2019-04-10] MEDS: ANAGRELIDE 0.5 MG PO SCH ×2 (08:47→20:57)
[2019-04-10] MEDS: METOPROLOL SUCC *XL* 25MG TAB (TopROL *XL*) PO SCH ×2 (08:51→20:56)
[2019-04-10] MEDS: LOSARTAN 25 MG TAB PO SCH (08:51)
[2019-04-10] MEDS: ANALGESIC BALM CRM 120 GM TOP SCH ×3 (08:53→20:58)
[2019-04-10] MEDS ORDERED: **NOTE PATIENT COMMENT** MISC XX SCH (09:00)
[2019-04-10] MEDS: REMEDY PHYTOPLEX Z-GUARD PASTE 113GM TUBE (FROM STOREROOM PRODUCT) TOP SCH ×3 (09:00→20:58)
[2019-04-10] MEDS: THERAPEUTIC BATH LOTION 240 ML BTL TOP SCH ×3 (09:00→20:56)
[2019-04-10 09:05] LABS: CALCIUM LEVEL 8.6 MG/DL (8.8-10.2); CREATININE FOR GFR 1.09 MG/DL (0.55-1.30); GLOMERULAR FILTRATION RATE 50.8 (>32); POTASSIUM SERUM 4.2 MEQ/L (3.5-5.1)
[2019-04-10] MEDS: LIDOCAINE 5% (LIDODERM) PATCH TD SCH (11:48)
[2019-04-10 16:00] VITALS: BP 118/57
--- NOTE | 2019-04-10 16:21 | IPNPDOC ---
Text Note Date of Service The patient was seen on 04/10/19. 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 Patient had an open reduction internal fixation of her right intertrochanteric hip fracture on 03/30/2019. Patient expressed post-operative anemia requiring blood transfusions. Patient was continuing with physical therapy and was found to have a blood clot of her right lower extremity on 04/01. Duplex ultrasound had revealed a right lower extremity with a non-occlusive thrombus from the popliteal vein to the proximal femoral vein. On 04/08 AM, patient reports experiencing shortness of breath that started at 7:30 in the morning, slowly progressed and 8:30 rapid assessment was called. Patient was found to be short of breath, saturating at 85% on 5 L nasal cannula. Patient report experiencing some chest discomfort. Denied any nausea, vomiting or any significant productive cough. Patient was transferred to the progressive care unit and had a workup via CT angiogram of her chest to evaluate for pulmonary embolism. Imaging was negative for any signs of emboli effusion fluid overload or infiltrate. Troponin 3 have been negative. EKG is without any ischemic changes. Clinically patient had returned back to her baseline upon arrival to her room. Patient had an echocardiogram completed that had revealed moderate aortic stenosis and moderate pulmonary hypertension. Patient was transferred back to ARU on 04/09. Patient was seen and examined at the bedside. Patient reports that she continue to work with physical therapy. She denies any chest pain, shortness of breath or palpitations. Denies nausea, vomiting, abdominal pain, diarrhea, or urinary discomfort. Objective: Vitals (See below) General: Lying in bed, no acute distress, comfortable, AAOx3 HEENT: NC, AT CVS: RRR, +S1S2 Lungs: Fair air entry b/l, -w/r/r Abdomen: Soft, ND, NT, +BSx4 Extremities: RLE with edema, LLE without edema, - Calf tenderness Assessment and plan: s/p Shortness of breath - possibly 2/2 anxiety, possibly 2/2 cardiac, not 2/2 pulmonary embolism - Patient experienced an onset shortness of breath this morning - Patient has a recent history of blood clots in her right lower extremity found on duplex ultrasound 04/02 - Currently saturating well on room air - CTA chest negative for pulmonary embolism Recent DVT of RLE - c/w Full anticoagulation with Eliquis HTN - BP well controlled currently - c/w Metoprolol with holding parameters - c/w Losartan & HCTZ Thrombocythemia - c/w Anagrelide Osteoporosis / T11-L1 compression fracture / Degenerative joint disease / Right pubic rami fracture - c/w Pain medications - c/w PT and OT Anemia - s/p Transfusions post-operatively - c/w iron supplementation 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
[2019-04-10] MEDS: GABAPENTIN 100 MG CAP PO SCH (20:56)
[2019-04-10 21:00] VITALS: BP 136/62
[2019-04-10] MEDS: **NOTE PATIENT COMMENT** MISC XX SCH (21:01)
[2019-04-11] VITALS (7 sets, daily range): BP systolic 94–143; BP diastolic 46–65
[2019-04-11] MEDS: oxyCODONE 5MG TAB PO PRN ×3 (01:56→20:54)
[2019-04-11] MEDS: REMEDY PHYTOPLEX Z-GUARD PASTE 113GM TUBE (FROM STOREROOM PRODUCT) TOP SCH ×3 (09:00→20:46)
[2019-04-11] MEDS: APIXABAN 5 MG TAB (ELIQUIS) PO SCH ×2 (09:56→20:41)
[2019-04-11] MEDS: LIDOCAINE 5% (LIDODERM) PATCH TD SCH (09:56)
[2019-04-11] MEDS: ANAGRELIDE 0.5 MG PO SCH ×2 (09:56→20:43)
[2019-04-11] MEDS: FERROUS GLUCONATE 324 MG TAB PO SCH ×2 (09:57→20:42)
[2019-04-11] MEDS: OYSTER SHELL CALCIUM 500 MG TAB PO SCH ×2 (09:57→20:41)
[2019-04-11] MEDS: ACETAMINOPHEN 500 MG TAB PO SCH ×3 (09:57→20:42)
[2019-04-11] MEDS: LOSARTAN 25 MG TAB PO SCH (09:57)
[2019-04-11] MEDS: hydroCHLOROthiazide 25 MG TAB PO SCH (09:57)
[2019-04-11] MEDS: THERAPEUTIC BATH LOTION 240 ML BTL TOP SCH ×3 (09:58→20:46)
[2019-04-11] MEDS: PANTOPRAZOLE 40MG TAB (PROTONIX) PO SCH ×2 (09:58→20:43)
[2019-04-11] MEDS: ANALGESIC BALM CRM 120 GM TOP SCH ×3 (09:58→20:45)
[2019-04-11] MEDS: METOPROLOL SUCC *XL* 25MG TAB (TopROL *XL*) PO SCH (09:58)
[2019-04-11 10:41] LABS: CK-MB VALUE MASS 1.3 NG/ML (<3.6); CPK CREATINE PHOSPHOKINASE 37 U/L (26-192); MB/CK RELATIVE INDEX 3.51 (< OR =4); TROPONIN I < 0.02 NG/ML (< 0.10)
--- NOTE | 2019-04-11 11:18 | ECGEPIP ---
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
[2019-04-11] MEDS ORDERED: ISOSORBIDE DIN. (ISORDIL) 5 MG TAB PO SCH (12:00)
[2019-04-11 16:41] LABS: ALBUMIN 2.7 GM/DL (3.2-5.2); ALT/SGPT 9 U/L (12-78); AMYLASE 38 U/L (25-115); BILIRUBIN,DIRECT 0.1 MG/DL (0.0-0.2); BILIRUBIN,TOTAL 0.6 MG/DL (0.2-1.0); BLOOD UREA NITROGEN 22 MG/DL (7-18); CALCIUM LEVEL 7.9 MG/DL (8.8-10.2); CARBON DIOXIDE LEVEL 30 MEQ/L (21-32); CHLORIDE LEVEL 107 MEQ/L (98-107); CHOLESTEROL LEVEL 145 MG/DL (<200); CHOLESTEROL RISK RATIO 4.142 (<5); CK-MB VALUE MASS 1.2 NG/ML (<3.6); CPK CREATINE PHOSPHOKINASE 28 U/L (26-192); CREATININE FOR GFR 1.11 MG/DL (0.55-1.30); GLOMERULAR FILTRATION RATE 49.7 (>32); GLUCOSE, FASTING 92 MG/DL (70-100); HDL CHOLESTEROL 35 MG/DL (>40); LDL CHOLESTEROL 76 MG/DL (<100); LIPASE 98 U/L (73-393); MB/CK RELATIVE INDEX 4.29 (< OR =4); NON-HDL-C 110 MG/DL; POTASSIUM SERUM 4.1 MEQ/L (3.5-5.1); SODIUM LEVEL 143 MEQ/L (136-145); TOTAL PROTEIN 5.2 GM/DL (6.4-8.2); TRIGLYCERIDES LEVEL 169 MG/DL (<150); TROPONIN I < 0.02 NG/ML (< 0.10)
--- NOTE | 2019-04-11 17:00 | CR ---
DATE OF CONSULTATION: 04/11/2019 REFERRING PROVIDER: Dr. Kingsley Vargas. REASON FOR CONSULT: Chest pain, aortic stenosis. HISTORY OF PRESENT ILLNESS: An 83-year-old woman living alone at home, came to the hospital on 03/29/2019 after falling at home on her right side. She was found to have, on x-ray, a comminuted intertrochanteric fracture of the right proximal femur and she had surgery done on the same day by orthopedics. She did well without any cardiac complications, but she required blood transfusion after surgery because of anemia. She then was transferred to rehabilitation on 03/31/2019. In rehabilitation, she has had a couple of episodes of chest pain and was transferred from rehabilitation to progressive care unit (PCU) on 04/08/2019 for further evaluation. EKG and serum troponin were negative. She was transferred back to rehabilitation and early this morning, she had another, more severe, chest pain that happened at rest and it radiated to the back. There is no radiation to the neck and/or the arms. She was tachycardic during that episode, but her blood pressure was normal. In view of her symptoms and her history, she was, on a recent echocardiogram, to have moderate aortic stenosis, cardiac consult was called. When I saw Mrs. Megan Spring on the floor, she was sitting in the chair in no acute distress and her son-in-law was at bedside and nurse was also at bedside. She currently is not having any chest pain. She has been actively having physical therapy without any chest pain. She thinks her chest pain may be related to anxiety, because she thinks about one of her sons not doing well. As mentioned above, she denies any chest pain with activities. She stated today she has been having those spells for quite a long time, probably about a year, but told her family. She denies any episodes of syncope or near syncope. She has been very active, taking care of her garden. She has no focal manifestations. She knows that she has a heart murmur. As mentioned above, she denies any chest pain with activities. Chest pain was not associated with any nausea or vomiting. She is not coughing. There is no focal manifestation. She has minimal pitting edema involving the right lower extremity, where she had the fracture, and she was diagnosed also during this hospitalization with a deep venous thrombosis (DVT) involving her right lower extremity. She has a past medical history positive for hypertension, thrombocytopenia, arthritis/osteoporosis, compression fracture, and they report T11-L1 due to degenerative joint disease, and also she was found on imaging of the head in the past to have right parietal lobe lacunar infarction. In 2006, she fell outside of her house and had a fracture of the left hip, for which she had surgery without any cardiac complications. She denies any known history of hyperlipidemia, diabetes mellitus, atrial fibrillation/flutter, known transient ischemic attack (TIA)/cerebrovascular accident (CVA). She denies any liver disease, lung disease, kidney disease, thyroid disorders. There is no history of congestive heart failure, cardiomyopathy, sudden cardiac . CURRENT MEDICATIONS: - metoprolol succinate 25 mg by mouth twice a day - isosorbide dinitrate 5 mg by mouth three times a day - apixaban 5 mg by mouth twice a day - lidocaine patch daily - ferrous gluconate 324 mg by mouth twice a day - Neurontin 100 mg by mouth at bedtime - pantoprazole 40 mg by mouth twice a day - calcium carbonate 500 mg by mouth twice a day - Tylenol as needed for pain - Darío Villagomez cream for pain apply three times a day - magnesium hydroxide 30 mL by mouth daily as needed for constipation - ondansetron 4 mg by mouth every 4 hours as needed for nausea or vomiting - oxycodone 2.5 mg by mouth every 4 hours as needed for pain - losartan 25 mg by mouth daily - hydrochlorothiazide 25 mg by mouth daily - Agrylin 0.5 mg capsule at bedtime for pain Past surgical history is positive for a total hysterectomy and bladder lift surgery. She also had fracture repair of the left hip in 2006 and right hip in 2019. She also had surgery in her middle ears. FAMILY HISTORY: Positive for leukemia. SOCIAL HISTORY: Patient lives alone in the [facility] and she her children who are in the area, very supportive. She does not smoke and has no history of EtOH abuse. There are no drug allergies, but allergy to LATEX. On physical examination, patient is alert and oriented, in no acute distress, and most recent vital signs revealed a blood pressure of 122/57, with a pulse of 98, respirations 16-20, and a maximum temperature is 98.7 degrees Fahrenheit, with an oxygen saturation of 97% on room air. EXAMINATION OF THE HEAD: Atraumatic. Neck is supple and carotid bruit is heard on the left side and with radiation of aortic stenosis murmur. The lungs were clear bilaterally on auscultation without any wheezing or crackles. The heart examination revealed irregular heart sounds without gallops. The point of maximum impulse (PMI) is not displaced. There is no rub. There is a systolic murmur, grade 3-4/6, at the base of the heart, with some radiation to the neck. Abdomen is unremarkable. Extremities revealed trace right lower leg/ankle edema. Pedal pulses, dorsalis pedis in both legs were +2 and equal. Neurologic examination grossly was negative for focal deficit. LABORATORY REVIEW: Complete blood count (CBC) done 04/09/2019 revealed a WBC of 4.9, hemoglobin 7.5, hematocrit 23.5, and platelets 216,000. Basic metabolic panel (BMP) on the same day revealed a sodium of 139, potassium 4.0, chloride 104, CO2 30, BUN 24, creatinine 1.0, and GFR 50.3, fasting glucose 91, and calcium 7.7, and magnesium 1.9. Serum troponin was negative at less than 0.02. Electrocardiogram done today revealed normal sinus rhythm, mildly tachycardic at 109 beats per minute and no specific ST-T abnormalities, left atrial abnormality, left ventricular hypertrophy (LVH). Compared to prior tracings. Prior telemetry strips are reviewed and revealed sinus rhythm, mildly tachycardic. A CT angiogram of the chest done 04/02/2019 revealed no pulmonary abnormalities, but a partially seen pancreatic duct, between 5.0 mm, dilated. Abdomen and pelvic CT reveal mild splenomegaly, mildly dilated pancreatic duct, up to 4 mm. No pancreatic mass was seen. No filling defect or evidence of thrombus was seen. Repeat Doppler of the legs on 04/06/2019 revealed no evidence of DVT. Chest x-ray on 03/29/2019 revealed no active disease process. IMPRESSION: 1. Chest pain, atypical and probably noncardiac in origin, but cannot be entirely ruled out. In view of her overall cardiovascular risk factors, however, there are no ischemic changes in her EKG and her serum troponin has been negative. She does have underlying aortic stenosis that could be a contributing factor. She, however, seems to be asymptomatic with activities, making underlying coronary artery disease (CAD) and/or aortic stenosis less likely to be causing her chest pain. She will be monitored. This was discussed with her and her son. 2. Aortic stenosis. Moderate by echocardiogram on 04/08/2019, normal left ventricular function (LVF). This will need to be assessed at one point in the future. The velocity across the aortic valve was 3.6 cm with a peak gradient of 15 mm. Otherwise, mild calcific mitral stenosis was noted, with mild to moderate tricuspid regurgitation and moderate pulmonary hypertension, dilated inferior vena cava. 3. Hypertension. Under control. In view of her symptoms, her aortic stenosis and her mitral stenosis, I have increased her beta [place]ville and will from now stop the angiotensin receptor orville (ARB)/losartan. She will continue the diuretics. Will need to monitor her potassium and BUN and creatinine. Early this morning, case was discussed with hospitalist covering and I recommended long acting nitrate, and she was started on the Isordil. This will be decreased. She will be monitored. 4. History of thrombocytopenia. Most recent platelet count was normal on 04/09/2019. 5. History of arthritis with degenerative joint disease and degenerative disc disease with prior compression at T11-L1. She does have a history of back pain and this probably could be related to that. 6. History of right parietal lobe lacunar infarction. Thank you for asking me to participate in the care of Mrs. Megan Spring for her underlying cardiac condition. I will continue to monitor along with you while in the hospital. The case was discussed with hospitalist. She will be seen in the office after her rehabilitation for further management of her underlying cardiac condition. Please do not hesitate to call if any questions.
[2019-04-11] MEDS: ISOSORBIDE DIN. (ISORDIL) 5 MG TAB PO SCH (20:41)
[2019-04-11] MEDS: GABAPENTIN 100 MG CAP PO SCH (20:43)
[2019-04-11] MEDS: **NOTE PATIENT COMMENT** MISC XX SCH (20:49)
[2019-04-12 06:40] VITALS: BP 141/67
--- NOTE | 2019-04-12 08:02 | REPVR ---
PROCEDURE INFORMATION: Exam: US Abdomen Limited, Right Upper Quadrant Exam date and time: 04/12/2019 7:22 AM Age: 83 years old Clinical indication: Abdominal pain; Generalized; Additional info: Evaluate for obstruction TECHNIQUE: Imaging protocol: Real-time ultrasound of the abdomen with image documentation. Examination was focused on the right upper quadrant. COMPARISON: CT ABD PELVIS WITH CONTRAST 04/06/2019 3:49 PM FINDINGS: Liver: The right hepatic lobe is enlarged measuring up to 19.4 cm in length. There is a lobulated contour of the inferior right hepatic lobe There is no focal hepatic lesion. Gallbladder: There is a 2 cm gallstone. There is no gallbladder wall thickening or pericholecystic fluid. Common bile duct: The CBD measures around 6-7 mm in diameter. Pancreas: The pancreatic head and body are unremarkable. The pancreatic duct is within upper normal range measuring 2 mm in the body. Right kidney: The right kidney measures 9.7 x 4.6 x 3.9 cm. There is no right renal mass, stone, cyst or hydronephrosis. Intraperitoneal space: Trace free fluid seen adjacent to the gallbladder and inferior edge of the liver. IMPRESSION: 1. Large gallstone measuring 2 cm but with no abnormal gallbladder wall thickening. 2. Trace fluid adjacent to the gallbladder and inferior edge of the liver is nonspecific and could be due to multiple etiologies. However given the presence of the large stone, clinical correlation for cholecystitis is needed. If indicated HIDA scan may be obtained for further evaluation. 3. CBD measuring 6-7 mm likely within normal range in a patient of this stated age. Correlate with LFTs and bilirubin level. If indicated MRCP may be obtained for further evaluation. 4. Enlarged right hepatic lobe with lobulated inferior contour of the liver. When correlated with CT scan of April 06, 2019 findings are likely due to normal variant pedunculated lobe. Electronically signed by: Thaddeus Rausch On 04/12/2019 08:04:35 AM
[2019-04-12] MEDS: PANTOPRAZOLE 40MG TAB (PROTONIX) PO SCH ×2 (08:18→20:32)
[2019-04-12] MEDS: OYSTER SHELL CALCIUM 500 MG TAB PO SCH ×2 (08:18→20:32)
[2019-04-12] MEDS: hydroCHLOROthiazide 25 MG TAB PO SCH (08:19)
[2019-04-12] MEDS: ISOSORBIDE DIN. (ISORDIL) 5 MG TAB PO SCH ×2 (08:19→20:32)
[2019-04-12] MEDS: METOPROLOL SUCC (TopROL XL) 50MG **XL** TAB PO SCH ×2 (08:19→20:32)
[2019-04-12] MEDS: FERROUS GLUCONATE 324 MG TAB PO SCH ×2 (08:19→20:32)
[2019-04-12] MEDS: APIXABAN 5 MG TAB (ELIQUIS) PO SCH ×2 (08:20→20:32)
[2019-04-12] MEDS: ACETAMINOPHEN 500 MG TAB PO SCH ×3 (08:20→20:33)
[2019-04-12] MEDS: ANAGRELIDE 0.5 MG PO SCH ×2 (08:21→20:38)
[2019-04-12] MEDS: LIDOCAINE 5% (LIDODERM) PATCH TD SCH (08:22)
[2019-04-12] MEDS: ANALGESIC BALM CRM 120 GM TOP SCH ×3 (08:22→20:36)
[2019-04-12] MEDS: THERAPEUTIC BATH LOTION 240 ML BTL TOP SCH ×3 (08:23→20:34)
[2019-04-12] MEDS: REMEDY PHYTOPLEX Z-GUARD PASTE 113GM TUBE (FROM STOREROOM PRODUCT) TOP SCH ×3 (08:23→20:34)
[2019-04-12 13:55] VITALS: BP 123/56
--- NOTE | 2019-04-12 14:03 | IPN ---
DATE: 04/12/2019' Megan Saima Spring was seen earlier today and was sitting in the chair, in no acute distress at rest. She is having physical therapy. She was seen yesterday because of chest pain, she has a history of heart murmur and was found during this hospitalization to have moderate aortic stenosis. She also has a history of hypertension. She was having chest pain and shortness of breath, transferred to PCU and serum troponin as well as EKGs remained normal. She also was found to have a the dilated CBD and case was discussed with hospitalist yesterday and a liver ultrasound done today that revealed a large gallstone measuring 2 cm but no was thickening. The CBD measure 6-7 mm and that was thought to be in likely within normal range at her age. She had the enzymes done yesterday 04/11/2019 and AST as well as the ALT were normal, same for bilirubin. Since yesterday, she has not had any chest pain or shortness of breath. It could be related to anxiety. PHYSICAL EXAMINATION: The patient he is alert and oriented, in no acute distress and is very pleasant. Her blood pressure earlier today prior to her meds revealed a day was 141/67 with a pulse of 104, respiration 18 and a maximum temperature was 98.5 degree Fahrenheit with an oxygen saturation of 95% on room air. Examination of the head, Atraumatic. Neck: Neck is supple and no JVD appreciated. The lungs were clear bilaterally on this occasion without any wheezing or crackles. Heart examination revealed a regular also without gallops. The PMI is not displaced. There is no rub. There is a systolic murmur grade 3-4/6 over the precardium laterally at the base of the head with some radiation to the neck. Abdomen is unremarkable. Extremities, trace focal edema on the right side and no pedal edema on the left side. LABORATORY DATA: Lipid profile done on 04/11/2019 revealed a total cholesterol of 145, LDL 76, HDL 35, total cholesterol / ____ratio of 4.1, triglycerides of 169. BMP done yesterday on 04/11/2019 revealed a sodium of 143, potassium 4.1, chloride 107, CO2 30, BUN 22, creatinine 1.1, GFR 49.7 fasting glucose 92 and a calcium of 7.9. Liver enzymes revealed a total bilirubin 0.6 degree, direct bilirubin 0.1, AST 11, ALT 9, total bilirubin 5.2, albumin 2.7. Serum lipase was 98 and serum amylase was 38. Mrs. Megan Spring is stable from a cardiac point of view and the plan is for her to be discharged home on 04/14/2019, she will be going to her daughter's house. She can be discharged on the same meds and we will give her an appointment for followup later this month. She will need a BMP done in about 2 weeks from discharge to check her BUN, creatinine and serum potassium because of the HCTZ. She is no longer on the losartan but her metoprolol was increased to the current dosing. While in the hospital she will be monitored for recurrent symptoms. Once again, I am not sure about that the nature of chest pain and shortness of breath but with the above she has significant aortic stenosis and history of hypertension. This was discussed with her and she will be monitored.
[2019-04-12 19:47] VITALS: BP 127/66
[2019-04-12] MEDS: GABAPENTIN 100 MG CAP PO SCH (20:32)
[2019-04-12] MEDS: oxyCODONE 5MG TAB PO PRN (20:34)
[2019-04-12] MEDS: **NOTE PATIENT COMMENT** MISC XX SCH (20:40)
[2019-04-13] MEDS: oxyCODONE 5MG TAB PO PRN ×3 (02:32→14:21)
[2019-04-13 05:53] VITALS: BP 154/70
[2019-04-13] MEDS: FERROUS GLUCONATE 324 MG TAB PO SCH ×2 (08:29→20:46)
[2019-04-13] MEDS: APIXABAN 5 MG TAB (ELIQUIS) PO SCH ×2 (08:29→20:46)
[2019-04-13] MEDS: LIDOCAINE 5% (LIDODERM) PATCH TD SCH (08:29)
[2019-04-13] MEDS: METOPROLOL SUCC (TopROL XL) 50MG **XL** TAB PO SCH ×2 (08:29→20:46)
[2019-04-13] MEDS: ISOSORBIDE DIN. (ISORDIL) 5 MG TAB PO SCH ×2 (08:29→20:46)
[2019-04-13] MEDS: PANTOPRAZOLE 40MG TAB (PROTONIX) PO SCH ×2 (08:29→20:46)
[2019-04-13] MEDS: OYSTER SHELL CALCIUM 500 MG TAB PO SCH ×2 (08:29→20:46)
[2019-04-13] MEDS: ACETAMINOPHEN 500 MG TAB PO SCH ×3 (08:30→20:46)
[2019-04-13] MEDS: hydroCHLOROthiazide 25 MG TAB PO SCH (08:30)
[2019-04-13] MEDS: ANAGRELIDE 0.5 MG PO SCH ×2 (08:30→20:54)
[2019-04-13] MEDS: REMEDY PHYTOPLEX Z-GUARD PASTE 113GM TUBE (FROM STOREROOM PRODUCT) TOP SCH ×3 (08:31→20:47)
[2019-04-13] MEDS: ANALGESIC BALM CRM 120 GM TOP SCH ×3 (08:31→20:49)
[2019-04-13] MEDS: THERAPEUTIC BATH LOTION 240 ML BTL TOP SCH ×3 (08:31→20:47)
--- NOTE | 2019-04-13 09:48 | IPNPDOC ---
PM&R Progress Note DATE OF SERVICE: Apr 08, 2019 [employer] Progress Note Patient with episode of tachypnea, hypoxia and elevated BPs-transferred to the ICU for further PE work-up. Allergies Coded Allergies: No Known Drug Allergies (Verified Allergy, Unknown, 03/29/19) latex (Verified Allergy, Unknown, unknown, 03/29/19) Vital Signs Vital Signs Date Time Temp Pulse Resp B/P (MAP) Pulse Ox O2 Delivery O2 Flow Rate FiO2 04/13/19 08:29 154/70 04/13/19 08:28 18 04/13/19 05:53 98.3 85 95 Room Air 04/11/19 09:40 3.0 Microbiology Microbiology 04/05/19 Stool Occult Blood (FELIX) - Final, Complete Current Medications Current Medications Current Medications Medications (Trade) Dose Ordered Sig/Elena Route PRN Reason Start Time Stop Time Status Last Admin Dose Admin Acetaminophen (Tylenol Tab) 1,000 mg TID PO 03/31/19 21:00 04/08/19 12:48 DC 04/04/19 21:39 Acetaminophen (Tylenol Tab) 1,000 mg TID PO 04/09/19 16:00 04/12/19 20:33 Amiloride HCl (Midamor) 5 mg DAILY PO 04/01/19 09:00 03/31/19 17:19 DC Apixaban (Eliquis) 5 mg BID PO 04/10/19 09:00 04/13/19 08:29 Apixaban (Eliquis) 10 mg BID PO 04/04/19 09:00 04/08/19 12:48 DC 04/08/19 08:25 Apixaban (Eliquis) 10 mg BID PO 04/09/19 21:00 04/09/19 21:01 DC 04/09/19 22:12 Apixaban (Eliquis) 10 mg Q6H PO 04/03/19 18:00 04/04/19 00:01 DC 04/03/19 23:21 Calcium Carbonate (Oscal) 500 mg BID PO 03/31/19 21:00 04/08/19 12:48 DC 04/07/19 21:00 Calcium Carbonate (Oscal) 500 mg BID PO 04/09/19 21:00 04/13/19 08:29 Diatrizoate Meglum/ Diatrizoate Sod (Gastrografin) 10 ml Q30M PO 04/06/19 11:00 04/06/19 11:31 Cancel Diatrizoate Meglum/ Diatrizoate Sod (Gastrografin) 10 ml Q30M PO 04/06/19 14:00 04/06/19 14:31 DC 04/06/19 14:34 Docusate Sodium (Colace) 100 mg BID PO 03/31/19 21:00 04/02/19 11:43 DC 04/02/19 08:52 Docusate Sodium (Colace) 100 mg TID PO 04/02/19 16:00 04/06/19 13:33 DC 04/06/19 09:15 Ferrous Gluconate (Fergon) 324 mg BID PO 04/06/19 09:00 04/08/19 12:48 DC 04/07/19 21:00 Ferrous Gluconate (Fergon) 324 mg BID PO 04/09/19 21:00 04/13/19 08:29 Gabapentin (Neurontin) 100 mg QHS PO 04/05/19 21:00 04/08/19 12:48 DC 04/07/19 21:00 Gabapentin (Neurontin) 100 mg QHS PO 04/09/19 21:00 04/12/19 20:32 Home Med (Med Rec Complete!) ASDIRECTED XX 03/31/19 17:30 03/31/19 17:23 DC Hydrochlorothiazide (Hydrodiuril) 25 mg DAILY PO 04/01/19 09:00 04/08/19 12:48 DC 04/07/19 08:34 Hydrochlorothiazide (Hydrodiuril) 25 mg DAILY PO 04/09/19 09:00 04/13/19 08:30 Isosorbide Dinitrate (Isordil) 5 mg BID PO 04/11/19 21:00 04/13/19 08:29 Isosorbide Dinitrate (Isordil) 5 mg TID@07,12,17 PO 04/11/19 12:00 04/11/19 14:42 DC Lidocaine (Lidoderm Patch) 2 patch DAILY TD 04/10/19 09:00 04/13/19 08:29 Lidocaine (Lidoderm Patch) 2 patch DAILY@2100 TD 03/31/19 21:00 04/08/19 12:48 DC 04/07/19 21:01 Lidocaine (Lidoderm Patch) 2 patch DAILY@2100 TD 04/09/19 21:00 04/10/19 09:20 DC Losartan Potassium (Cozaar) 25 mg DAILY PO 04/01/19 09:00 04/08/19 12:48 DC 04/07/19 08:34 Losartan Potassium (Cozaar) 25 mg DAILY PO 04/09/19 09:00 04/11/19 14:12 DC 04/11/19 09:57 Magnesium Hydroxide (Milk Of Magnesia) 30 ml DAILYPRN PRN PO CONSTIPATION 03/31/19 16:30 04/08/19 12:48 DC Magnesium Hydroxide (Milk Of Magnesia) 30 ml DAILYPRN PRN PO CONSTIPATION 04/09/19 13:30 Menthol/Methyl Salicylate (Bengay Cream) apply to inner thi... TID TOP 04/05/19 16:00 04/08/19 12:48 DC 04/07/19 16:24 Menthol/Methyl Salicylate (Bengay Cream) apply to inner thi... TID TOP 04/09/19 16:00 04/12/19 20:36 Metoprolol Succinate (TopROL XL) 25 mg BID PO 04/09/19 21:00 04/11/19 14:12 DC 04/11/19 09:58 Metoprolol Succinate (TopROL XL) 50 mg BID PO 04/12/19 09:00 04/13/19 08:29 Metoprolol Tartrate (Lopressor) 12.5 mg TID PO 04/01/19 09:00 04/08/19 12:48 DC 04/07/19 21:00 Morphine Sulfate (Ms Contin) 15 mg BID PO 03/31/19 21:00 04/01/19 11:16 DC 04/01/19 08:41 Multi-Ingredient Lotion (Rosalind Lotion) 1 dose TID TOP 04/02/19 16:00 04/08/19 12:48 DC 04/07/19 21:01 Multi-Ingredient Lotion (Rosalind Lotion) 1 dose TID TOP 04/09/19 16:00 04/09/19 13:31 DC Multi-Ingredient Lotion (Rosalind Lotion) apply to bilat UE and hands TID TOP 04/09/19 16:00 04/13/19 08:31 Non-Formulary Medication ( See Comment Field Below ) REMOVE LIDODERM PATCH DAILY XX 04/01/19 09:00 04/08/19 12:48 DC 04/07/19 11:08 Non-Formulary Medication ( See Comment Field Below ) REMOVE LIDODERM PATCH DAILY XX 04/10/19 09:00 04/10/19 10:57 DC Non-Formulary Medication ( See Comment Field Below ) REMOVE LIDODERM PATCH DAILY@21 XX 04/10/19 21:00 04/12/19 20:40 Ondansetron HCl (Zofran Odt) 4 mg Q4HP PRN PO NAUSEA OR VOMITING 04/01/19 11:15 04/08/19 12:48 DC 04/05/19 08:03 Ondansetron HCl (Zofran Odt) 4 mg Q4HP PRN PO NAUSEA OR VOMITING 04/09/19 13:30 Oxycodone HCl (Roxicodone, Oxyir) 2.5 mg DAILY@0800,1200 PO 04/01/19 12:00 04/02/19 16:36 DC 04/02/19 12:10 Oxycodone HCl (Roxicodone, Oxyir) 2.5 mg DAILY@1600,2000 PO 04/01/19 16:00 04/02/19 16:36 DC 04/01/19 21:29 Oxycodone HCl (Roxicodone, Oxyir) 2.5 mg Q4HP PRN PO PAIN 04/02/19 16:45 04/08/19 12:48 DC 04/08/19 07:03 Oxycodone HCl (Roxicodone, Oxyir) 2.5 mg Q4HP PRN PO PAIN 04/09/19 13:00 04/13/19 08:28 Oxycodone HCl (Roxicodone, Oxyir) 5 mg ASDIRECTED PRN PO PAIN 04/01/19 11:15 04/02/19 16:36 DC Pantoprazole Sodium (Protonix) 40 mg BID PO 04/03/19 21:00 04/08/19 12:48 DC 04/07/19 21:00 Pantoprazole Sodium (Protonix) 40 mg BID PO 04/09/19 21:00 04/13/19 08:29 Pantoprazole Sodium (Protonix) 40 mg DAILY PO 04/01/19 09:00 04/03/19 10:09 DC 04/03/19 08:52 Patient Own Medication (Patient'S Own Med) ANAGRELIDE (AGRYLIN) 0.... QAM PO 04/02/19 09:00 04/08/19 12:48 DC 04/07/19 08:35 Patient Own Medication (Patient'S Own Med) ANAGRELIDE (AGRYLIN) 0.... QAM PO 04/10/19 09:00 04/13/19 08:30 Patient Own Medication (Patient'S Own Med) ANAGRELIDE (AGRYLIN) 0.... QPM PO 04/01/19 21:00 04/08/19 12:48 DC 04/07/19 21:01 Patient Own Medication (Patient'S Own Med) ANAGRELIDE (AGRYLIN) 0.... QPM PO 04/09/19 21:00 04/12/19 20:38 Rivaroxaban (Xarelto) 10 mg DAILY@1800 PO 03/31/19 18:00 04/02/19 17:18 DC 04/02/19 17:02 Senna (Senokot) 1 tab QHS PO 03/31/19 21:00 04/02/19 11:43 DC 04/01/19 21:30 Senna (Senokot) 1 tab QHS PO 04/06/19 21:00 04/06/19 13:33 DC Senna (Senokot) 2 tab QHS PO 04/02/19 21:00 04/06/19 10:09 DC 04/02/19 21:07 Tramadol HCl (Ultram) 25 mg Q8HP PRN PO MODERATE PAIN (PS 5-7) 03/31/19 21:00 04/01/19 11:16 DC 04/01/19 02:50 Tramadol HCl (Ultram) 50 mg Q6HP PRN PO MODERATE PAIN (PS 5-7) 03/31/19 16:30 03/31/19 17:13 ALYSSA SALINAS MD Apr 13, 2019 09:48
--- NOTE | 2019-04-13 12:42 | IPNPDOC ---
PM&R Progress Note DATE OF SERVICE: Apr 13, 2019 [employer] Progress Note Subjective: Patient seen this morning stating she does not have chest pain, understands she will have to be less active at home, and is looking forward to traveling to [place] in June. REVIEW OF SYSTEMS: The following is a completed review of systems and has been reviewed. Review of systems otherwise unremarkable. PAIN: Patient self reports right hip pain EYES: No recent vision changes EARS, NOSE, & THROAT: No throat pain, or dysphagia, or rhinorrhea CARDIOVASCULAR: Denies chest pain or palpitations PULMONARY: Denies shortness of breath GASTROINTESTINAL: + loose stools (improving) GENITOURINARY: denies dysuria MUSCULOSKELETAL: right hip fracture NEUROLOGICAL:no focal tremor or seizure activity HEMATOLOGICAL: +thrombocythemia SKIN: right hip incision PSYCHIATRIC: Unremarkable All other review of systems found to be negative. PHYSICAL EXAMINATION: VITAL SIGNS: Please see below. GENERAL: Pleasant and cooperative. No acute distress. thin, +sedated HEENT: PERRL. Extraocular movements intact. Clear conjunctiva CARDIOVASCULAR: Regular rate and rhythm. +systolic murmur, rubs, or gallops LUNGS: Clear to auscultation bilaterally. No wheezes. No rhonchi ABDOMEN: Soft, nontender, nondistended. Positive bowel sounds. Normal active bowel sounds NEUROLOGICAL: Alert and oriented times three. Cranial nerves II through XII grossly intact. Sensation grossly intact EXTREMITIES: 5\5 strength bilateral upper extremities. 5\5 strength right ankle PF, DF and EHL extension (limited due to surgery). 5/5 strength in left lower extremity. (-) Homans bilat (+) RLE >LLE edema SKIN: right hip incision with scant serous drainage, mild swelling, no induration Right elbow with plaque like lesion ASSESSMENT:83-year-old F with past medical history of HTN and thrombocythemia who presents status post fall with right hip fracture PLAN: 1. Rehab:- PT/OT advance gait and ADl training, strengthen/stretch/maintain ROM all 4 limbs, ambulating with RW 2. Neuro: no known hx 3. Cardiac: HTN, c/u HCTZ -patient recently diagnosed with aortic stenosis and evaluated bu cardiology who added Metoprolol succinate 50 BID and isosorbide dinitrate 5mg BID to her current regimen and d/c'd losartan, will need outpatient f/u -will fluid restrict for suspected degree of CHF and edema 4. Resp: encourage incentive spirometry and monitor for infection, patient with RLE DVT, recent CTA negative for PE, monitor 5. Heme: hx of thrombocythemia- med rec error recognized and corrected with pharmacy, patient is NOT on Amiloride (did not receive this medication at any time during hospital stay), but has been on Anagrelide which has been started -post-op anemia improved s/p transfusion, monitor for further blood loss-hgb stable 6. GI ppx: protonix -CTA of chest showed incidental pancreatic duct dilation, CT abd/pelvis 04-06-19 sows no mass- f/u with PMD 7. DVT ppx: +acute right pop-fem DVT discussed case with vascular surgery who recommends switching to Eliquis, CTA negative for PE 04-02-19, repeat Doppler shows no DVT in the RLE, CT abd/pelvis ordered to look for proximal migration into the pelvic veins as this cannot be viewed well via US, discussed imaging with Dr. Larios and Dr. Julien and no migration noted, c/u Eliquis 3 months- -CTA chest 04-08-19 negative for PE 8. Ortho: s/p right hip ORIF, WBAT- consulted to assist in management 9. Pain: d/c'd morphine 15mg BID due to nausea and sedation, d/c'd tramadol 25mg as well - c/u oxycodone 2.5mg prn , c/u Tylenol 1gm TID standing -c/u lidoderm patches to back and bilat hips -c/u gabapentin 100mg qHS and Menthol salicylate 10. Skin- psoriasis, c/u lotion to UE 11. Dispo: 04-14-19, patient wit interrupted stay 04-08-19, returned to unit 04-09-19 Allergies Coded Allergies: No Known Drug Allergies (Verified Allergy, Unknown, 03/29/19) latex (Verified Allergy, Unknown, unknown, 03/29/19) Vital Signs Vital Signs Date Time Temp Pulse Resp B/P (MAP) Pulse Ox O2 Delivery O2 Flow Rate FiO2 04/13/19 09:00 18 04/13/19 08:29 154/70 04/13/19 05:53 98.3 85 95 Room Air 04/11/19 09:40 3.0 Microbiology Microbiology 04/05/19 Stool Occult Blood (FELIX) - Final, Complete Current Medications Current Medications Current Medications Medications (Trade) Dose Ordered Sig/Elena Route PRN Reason Start Time Stop Time Status Last Admin Dose Admin Acetaminophen (Tylenol Tab) 1,000 mg TID PO 03/31/19 21:00 04/08/19 12:48 DC 04/04/19 21:39 Acetaminophen (Tylenol Tab) 1,000 mg TID PO 04/09/19 16:00 04/12/19 20:33 Amiloride HCl (Midamor) 5 mg DAILY PO 04/01/19 09:00 03/31/19 17:19 DC Apixaban (Eliquis) 5 mg BID PO 04/10/19 09:00 04/13/19 08:29 Apixaban (Eliquis) 10 mg BID PO 04/04/19 09:00 04/08/19 12:48 DC 04/08/19 08:25 Apixaban (Eliquis) 10 mg BID PO 04/09/19 21:00 04/09/19 21:01 DC 04/09/19 22:12 Apixaban (Eliquis) 10 mg Q6H PO 04/03/19 18:00 04/04/19 00:01 DC 04/03/19 23:21 Calcium Carbonate (Oscal) 500 mg BID PO 03/31/19 21:00 04/08/19 12:48 DC 04/07/19 21:00 Calcium Carbonate (Oscal) 500 mg BID PO 04/09/19 21:00 04/13/19 08:29 Diatrizoate Meglum/ Diatrizoate Sod (Gastrografin) 10 ml Q30M PO 04/06/19 11:00 04/06/19 11:31 Cancel Diatrizoate Meglum/ Diatrizoate Sod (Gastrografin) 10 ml Q30M PO 04/06/19 14:00 04/06/19 14:31 DC 04/06/19 14:34 Docusate Sodium (Colace) 100 mg BID PO 03/31/19 21:00 04/02/19 11:43 DC 04/02/19 08:52 Docusate Sodium (Colace) 100 mg TID PO 04/02/19 16:00 04/06/19 13:33 DC 04/06/19 09:15 Ferrous Gluconate (Fergon) 324 mg BID PO 04/06/19 09:00 04/08/19 12:48 DC 04/07/19 21:00 Ferrous Gluconate (Fergon) 324 mg BID PO 04/09/19 21:00 04/13/19 08:29 Gabapentin (Neurontin) 100 mg QHS PO 04/05/19 21:00 04/08/19 12:48 DC 04/07/19 21:00 Gabapentin (Neurontin) 100 mg QHS PO 04/09/19 21:00 04/12/19 20:32 Home Med (Med Rec Complete!) ASDIRECTED XX 03/31/19 17:30 03/31/19 17:23 DC Hydrochlorothiazide (Hydrodiuril) 25 mg DAILY PO 04/01/19 09:00 04/08/19 12:48 DC 04/07/19 08:34 Hydrochlorothiazide (Hydrodiuril) 25 mg DAILY PO 04/09/19 09:00 04/13/19 08:30 Isosorbide Dinitrate (Isordil) 5 mg BID PO 04/11/19 21:00 04/13/19 08:29 Isosorbide Dinitrate (Isordil) 5 mg TID@07,12,17 PO 04/11/19 12:00 04/11/19 14:42 DC Lidocaine (Lidoderm Patch) 2 patch DAILY TD 04/10/19 09:00 04/13/19 08:29 Lidocaine (Lidoderm Patch) 2 patch DAILY@2100 TD 03/31/19 21:00 04/08/19 12:48 DC 04/07/19 21:01 Lidocaine (Lidoderm Patch) 2 patch DAILY@2100 TD 04/09/19 21:00 04/10/19 09:20 DC Losartan Potassium (Cozaar) 25 mg DAILY PO 04/01/19 09:00 04/08/19 12:48 DC 04/07/19 08:34 Losartan Potassium (Cozaar) 25 mg DAILY PO 04/09/19 09:00 04/11/19 14:12 DC 04/11/19 09:57 Magnesium Hydroxide (Milk Of Magnesia) 30 ml DAILYPRN PRN PO CONSTIPATION 03/31/19 16:30 04/08/19 12:48 DC Magnesium Hydroxide (Milk Of Magnesia) 30 ml DAILYPRN PRN PO CONSTIPATION 04/09/19 13:30 Menthol/Methyl Salicylate (Bengay Cream) apply to inner thi... TID TOP 04/05/19 16:00 04/08/19 12:48 DC 04/07/19 16:24 Menthol/Methyl Salicylate (Bengay Cream) apply to inner thi... TID TOP 04/09/19 16:00 04/12/19 20:36 Metoprolol Succinate (TopROL XL) 25 mg BID PO 04/09/19 21:00 04/11/19 14:12 DC 04/11/19 09:58 Metoprolol Succinate (TopROL XL) 50 mg BID PO 04/12/19 09:00 04/13/19 08:29 Metoprolol Tartrate (Lopressor) 12.5 mg TID PO 04/01/19 09:00 04/08/19 12:48 DC 04/07/19 21:00 Morphine Sulfate (Ms Contin) 15 mg BID PO 03/31/19 21:00 04/01/19 11:16 DC 04/01/19 08:41 Multi-Ingredient Lotion (Rosalind Lotion) 1 dose TID TOP 04/02/19 16:00 04/08/19 12:48 DC 04/07/19 21:01 Multi-Ingredient Lotion (Rosalind Lotion) 1 dose TID TOP 04/09/19 16:00 04/09/19 13:31 DC Multi-Ingredient Lotion (Rosalind Lotion) apply to bilat UE and hands TID TOP 04/09/19 16:00 04/13/19 08:31 Non-Formulary Medication ( See Comment Field Below ) REMOVE LIDODERM PATCH DAILY XX 04/01/19 09:00 04/08/19 12:48 DC 04/07/19 11:08 Non-Formulary Medication ( See Comment Field Below ) REMOVE LIDODERM PATCH DAILY XX 04/10/19 09:00 04/10/19 10:57 DC Non-Formulary Medication ( See Comment Field Below ) REMOVE LIDODERM PATCH DAILY@21 XX 04/10/19 21:00 04/12/19 20:40 Ondansetron HCl (Zofran Odt) 4 mg Q4HP PRN PO NAUSEA OR VOMITING 04/01/19 11:15 04/08/19 12:48 DC 04/05/19 08:03 Ondansetron HCl (Zofran Odt) 4 mg Q4HP PRN PO NAUSEA OR VOMITING 04/09/19 13:30 Oxycodone HCl (Roxicodone, Oxyir) 2.5 mg DAILY@0800,1200 PO 04/01/19 12:00 04/02/19 16:36 DC 04/02/19 12:10 Oxycodone HCl (Roxicodone, Oxyir) 2.5 mg DAILY@1600,2000 PO 04/01/19 16:00 04/02/19 16:36 DC 04/01/19 21:29 Oxycodone HCl (Roxicodone, Oxyir) 2.5 mg Q4HP PRN PO PAIN 04/02/19 16:45 04/08/19 12:48 DC 04/08/19 07:03 Oxycodone HCl (Roxicodone, Oxyir) 2.5 mg Q4HP PRN PO PAIN 04/09/19 13:00 04/13/19 08:28 Oxycodone HCl (Roxicodone, Oxyir) 5 mg ASDIRECTED PRN PO PAIN 04/01/19 11:15 04/02/19 16:36 DC Pantoprazole Sodium (Protonix) 40 mg BID PO 04/03/19 21:00 04/08/19 12:48 DC 04/07/19 21:00 Pantoprazole Sodium (Protonix) 40 mg BID PO 04/09/19 21:00 04/13/19 08:29 Pantoprazole Sodium (Protonix) 40 mg DAILY PO 04/01/19 09:00 04/03/19 10:09 DC 04/03/19 08:52 Patient Own Medication (Patient'S Own Med) ANAGRELIDE (AGRYLIN) 0.... QAM PO 04/02/19 09:00 04/08/19 12:48 DC 04/07/19 08:35 Patient Own Medication (Patient'S Own Med) ANAGRELIDE (AGRYLIN) 0.... QAM PO 04/10/19 09:00 04/13/19 08:30 Patient Own Medication (Patient'S Own Med) ANAGRELIDE (AGRYLIN) 0.... QPM PO 04/01/19 21:00 04/08/19 12:48 DC 04/07/19 21:01 Patient Own Medication (Patient'S Own Med) ANAGRELIDE (AGRYLIN) 0.... QPM PO 04/09/19 21:00 04/12/19 20:38 Rivaroxaban (Xarelto) 10 mg DAILY@1800 PO 03/31/19 18:00 04/02/19 17:18 DC 04/02/19 17:02 Senna (Senokot) 1 tab QHS PO 03/31/19 21:00 04/02/19 11:43 DC 04/01/19 21:30 Senna (Senokot) 1 tab QHS PO 04/06/19 21:00 04/06/19 13:33 DC Senna (Senokot) 2 tab QHS PO 04/02/19 21:00 04/06/19 10:09 DC 04/02/19 21:07 Tramadol HCl (Ultram) 25 mg Q8HP PRN PO MODERATE PAIN (PS 5-7) 03/31/19 21:00 04/01/19 11:16 DC 04/01/19 02:50 Tramadol HCl (Ultram) 50 mg Q6HP PRN PO MODERATE PAIN (PS 5-7) 03/31/19 16:30 03/31/19 17:13 ALYSSA SALINAS MD Apr 13, 2019 12:42
[2019-04-13 14:00] VITALS: BP 140/62
[2019-04-13 20:00] VITALS: BP 133/63
[2019-04-13] MEDS: GABAPENTIN 100 MG CAP PO SCH (20:46)
[2019-04-13] MEDS: **NOTE PATIENT COMMENT** MISC XX SCH (20:52)
[2019-04-14 06:00] VITALS: BP 137/63
[2019-04-14] MEDS: oxyCODONE 5MG TAB PO PRN (06:27)
[2019-04-14] MEDS: LIDOCAINE 5% (LIDODERM) PATCH TD SCH (08:50)
[2019-04-14] MEDS: ANAGRELIDE 0.5 MG PO SCH (08:50)
[2019-04-14 08:51] VITALS: BP 137/63
[2019-04-14] MEDS: METOPROLOL SUCC (TopROL XL) 50MG **XL** TAB PO SCH (08:51)
[2019-04-14] MEDS: ISOSORBIDE DIN. (ISORDIL) 5 MG TAB PO SCH (08:51)
[2019-04-14] MEDS: FERROUS GLUCONATE 324 MG TAB PO SCH (08:51)
[2019-04-14] MEDS: APIXABAN 5 MG TAB (ELIQUIS) PO SCH (08:51)
[2019-04-14] MEDS: PANTOPRAZOLE 40MG TAB (PROTONIX) PO SCH (08:52)
[2019-04-14] MEDS: ACETAMINOPHEN 500 MG TAB PO SCH (08:52)
[2019-04-14] MEDS: REMEDY PHYTOPLEX Z-GUARD PASTE 113GM TUBE (FROM STOREROOM PRODUCT) TOP SCH (08:52)
[2019-04-14] MEDS: OYSTER SHELL CALCIUM 500 MG TAB PO SCH (08:52)
[2019-04-14] MEDS: hydroCHLOROthiazide 25 MG TAB PO SCH (08:52)
[2019-04-14] MEDS: THERAPEUTIC BATH LOTION 240 ML BTL TOP SCH (08:52)
[2019-04-14] MEDS: ANALGESIC BALM CRM 120 GM TOP SCH (08:53)
[2019-04-14] MEDS ORDERED: OXYC-517 PO (10:16)
[2019-04-14] MEDS ORDERED: ISOS5TA PO (10:16)
[2019-04-14] MEDS ORDERED: GABA-1171 PO (10:16)
[2019-04-14] MEDS ORDERED: ACET-683 PO (10:16)
[2019-04-14] MEDS ORDERED: HYDR25TAB PO (10:16)
[2019-04-14] MEDS ORDERED: METO1TAB7 PO (10:16)
[2019-04-14] MEDS ORDERED: ELIQ5TAB PO (10:16)
[2019-04-14] MEDS ORDERED: FERR32TA PO (10:16)
[2019-04-14] MEDS ORDERED: PANT40TA3 PO (10:17)
[2019-04-14] MEDS ORDERED: CALCI50TA PO (10:17)
--- NOTE | 2019-04-14 10:34 | IPNPDOC ---
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 Review of systems otherwise unremarkable. PAIN: Patient self reports right hip pain EYES: No recent vision changes EARS, NOSE, & THROAT: No throat pain, or dysphagia, or rhinorrhea CARDIOVASCULAR: Denies chest pain or palpitations PULMONARY: Denies shortness of breath GASTROINTESTINAL: + loose stools (improving) GENITOURINARY: denies dysuria MUSCULOSKELETAL: right hip fracture NEUROLOGICAL:no focal tremor or seizure activity HEMATOLOGICAL: +thrombocythemia SKIN: right hip incision PSYCHIATRIC: Unremarkable All other review of systems found to be negative. PHYSICAL EXAMINATION: VITAL SIGNS: Please see below. GENERAL: Pleasant and cooperative. No acute distress. thin, +sedated HEENT: PERRL. Extraocular movements intact. Clear conjunctiva CARDIOVASCULAR: Regular rate and rhythm. +systolic murmur, rubs, or gallops LUNGS: Clear to auscultation bilaterally. No wheezes. No rhonchi ABDOMEN: Soft, nontender, nondistended. Positive bowel sounds. Normal active bowel sounds NEUROLOGICAL: Alert and oriented times three. Cranial nerves II through XII grossly intact. Sensation grossly intact EXTREMITIES: 5\5 strength bilateral upper extremities. 5\5 strength right ankle PF, DF and EHL extension (limited due to surgery). 5/5 strength in left lower extremity. (-) Homans bilat (+) RLE >LLE edema SKIN: right hip incision with scant serous drainage, mild swelling, no induration Right elbow with plaque like lesion ASSESSMENT:83-year-old F with past medical history of HTN and thrombocythemia who presents status post fall with right hip fracture PLAN: 1. Rehab:- PT/OT advance gait and ADl training, strengthen/stretch/maintain ROM all 4 limbs, ambulating with RW 2. Neuro: no known hx 3. Cardiac: HTN, c/u HCTZ -patient recently diagnosed with aortic stenosis and evaluated bu cardiology who added Metoprolol succinate 50 BID and isosorbide dinitrate 5mg BID to her current regimen and d/c'd losartan, will need outpatient f/u -will fluid restrict for suspected degree of CHF and edema 4. Resp: encourage incentive spirometry and monitor for infection, patient with RLE DVT, recent CTA negative for PE, monitor 5. Heme: hx of thrombocythemia- med rec error recognized and corrected with pharmacy, patient is NOT on Amiloride (did not receive this medication at any time during hospital stay), but has been on Anagrelide which has been started -post-op anemia improved s/p transfusion, monitor for further blood loss-hgb stable 6. GI ppx: protonix -CTA of chest showed incidental pancreatic duct dilation, CT abd/pelvis 04-06-19 sows no mass- f/u with PMD 7. DVT ppx: +acute right pop-fem DVT discussed case with vascular surgery who recommends switching to Eliquis, CTA negative for PE 04-02-19, repeat Doppler shows no DVT in the RLE, CT abd/pelvis ordered to look for proximal migration into the pelvic veins as this cannot be viewed well via US, discussed imaging with Dr. Larios and Dr. Julien and no migration noted, c/u Eliquis 3 months- -CTA chest 04-08-19 negative for PE 8. Ortho: s/p right hip ORIF, WBAT- consulted to assist in management 9. Pain: d/c'd morphine 15mg BID due to nausea and sedation, d/c'd tramadol 25mg as well - c/u oxycodone 2.5mg prn , c/u Tylenol 1gm TID standing -c/u lidoderm patches to back and bilat hips -c/u gabapentin 100mg qHS and Menthol salicylate 10. Skin- psoriasis, c/u lotion to UE 11. Dispo: 04-14-19, patient wit interrupted stay 04-08-19, returned to unit 04-09-19 Allergies Coded Allergies: No Known Drug Allergies (Verified Allergy, Unknown, 03/29/19) latex (Verified Allergy, Unknown, unknown, 03/29/19) Vital Signs Vital Signs Date Time Temp Pulse Resp B/P (MAP) Pulse Ox O2 Delivery O2 Flow Rate FiO2 04/14/19 08:51 86 137/63 04/14/19 07:15 18 04/14/19 06:00 99.3 95 Room Air 04/11/19 09:40 3.0 Microbiology Microbiology 04/05/19 Stool Occult Blood (FELIX) - Final, Complete Current Medications Current Medications Current Medications Medications (Trade) Dose Ordered Sig/Elena Route PRN Reason Start Time Stop Time Status Last Admin Dose Admin Acetaminophen (Tylenol Tab) 1,000 mg TID PO 03/31/19 21:00 04/08/19 12:48 DC 04/04/19 21:39 Acetaminophen (Tylenol Tab) 1,000 mg TID PO 04/09/19 16:00 04/14/19 08:52 Amiloride HCl (Midamor) 5 mg DAILY PO 04/01/19 09:00 03/31/19 17:19 DC Apixaban (Eliquis) 5 mg BID PO 04/10/19 09:00 04/14/19 08:51 Apixaban (Eliquis) 10 mg BID PO 04/04/19 09:00 04/08/19 12:48 DC 04/08/19 08:25 Apixaban (Eliquis) 10 mg BID PO 04/09/19 21:00 04/09/19 21:01 DC 04/09/19 22:12 Apixaban (Eliquis) 10 mg Q6H PO 04/03/19 18:00 04/04/19 00:01 DC 04/03/19 23:21 Calcium Carbonate (Oscal) 500 mg BID PO 03/31/19 21:00 04/08/19 12:48 DC 04/07/19 21:00 Calcium Carbonate (Oscal) 500 mg BID PO 04/09/19 21:00 04/14/19 08:52 Diatrizoate Meglum/ Diatrizoate Sod (Gastrografin) 10 ml Q30M PO 04/06/19 11:00 04/06/19 11:31 Cancel Diatrizoate Meglum/ Diatrizoate Sod (Gastrografin) 10 ml Q30M PO 04/06/19 14:00 04/06/19 14:31 DC 04/06/19 14:34 Docusate Sodium (Colace) 100 mg BID PO 03/31/19 21:00 04/02/19 11:43 DC 04/02/19 08:52 Docusate Sodium (Colace) 100 mg TID PO 04/02/19 16:00 04/06/19 13:33 DC 04/06/19 09:15 Ferrous Gluconate (Fergon) 324 mg BID PO 04/06/19 09:00 04/08/19 12:48 DC 04/07/19 21:00 Ferrous Gluconate (Fergon) 324 mg BID PO 04/09/19 21:00 04/14/19 08:51 Gabapentin (Neurontin) 100 mg QHS PO 04/05/19 21:00 04/08/19 12:48 DC 04/07/19 21:00 Gabapentin (Neurontin) 100 mg QHS PO 04/09/19 21:00 04/13/19 20:46 Home Med (Med Rec Complete!) ASDIRECTED XX 03/31/19 17:30 03/31/19 17:23 DC Hydrochlorothiazide (Hydrodiuril) 25 mg DAILY PO 04/01/19 09:00 04/08/19 12:48 DC 04/07/19 08:34 Hydrochlorothiazide (Hydrodiuril) 25 mg DAILY PO 04/09/19 09:00 04/14/19 08:52 Isosorbide Dinitrate (Isordil) 5 mg BID PO 04/11/19 21:00 04/14/19 08:51 Isosorbide Dinitrate (Isordil) 5 mg TID@07,12,17 PO 04/11/19 12:00 04/11/19 14:42 DC Lidocaine (Lidoderm Patch) 2 patch DAILY TD 04/10/19 09:00 04/14/19 08:50 Lidocaine (Lidoderm Patch) 2 patch DAILY@2100 TD 03/31/19 21:00 04/08/19 12:48 DC 04/07/19 21:01 Lidocaine (Lidoderm Patch) 2 patch DAILY@2100 TD 04/09/19 21:00 04/10/19 09:20 DC Losartan Potassium (Cozaar) 25 mg DAILY PO 04/01/19 09:00 04/08/19 12:48 DC 04/07/19 08:34 Losartan Potassium (Cozaar) 25 mg DAILY PO 04/09/19 09:00 04/11/19 14:12 DC 04/11/19 09:57 Magnesium Hydroxide (Milk Of Magnesia) 30 ml DAILYPRN PRN PO CONSTIPATION 03/31/19 16:30 04/08/19 12:48 DC Magnesium Hydroxide (Milk Of Magnesia) 30 ml DAILYPRN PRN PO CONSTIPATION 04/09/19 13:30 Menthol/Methyl Salicylate (Bengay Cream) apply to inner thi... TID TOP 04/05/19 16:00 04/08/19 12:48 DC 04/07/19 16:24 Menthol/Methyl Salicylate (Bengay Cream) apply to inner thi... TID TOP 04/09/19 16:00 04/13/19 20:49 Metoprolol Succinate (TopROL XL) 25 mg BID PO 04/09/19 21:00 04/11/19 14:12 DC 04/11/19 09:58 Metoprolol Succinate (TopROL XL) 50 mg BID PO 04/12/19 09:00 04/14/19 08:51 Metoprolol Tartrate (Lopressor) 12.5 mg TID PO 04/01/19 09:00 04/08/19 12:48 DC 04/07/19 21:00 Morphine Sulfate (Ms Contin) 15 mg BID PO 03/31/19 21:00 04/01/19 11:16 DC 04/01/19 08:41 Multi-Ingredient Lotion (Rosalind Lotion) 1 dose TID TOP 04/02/19 16:00 04/08/19 12:48 DC 04/07/19 21:01 Multi-Ingredient Lotion (Rosalind Lotion) 1 dose TID TOP 04/09/19 16:00 04/09/19 13:31 DC Multi-Ingredient Lotion (Rosalind Lotion) apply to bilat UE and hands TID TOP 04/09/19 16:00 04/14/19 08:52 Non-Formulary Medication ( See Comment Field Below ) REMOVE LIDODERM PATCH DAILY XX 04/01/19 09:00 04/08/19 12:48 DC 04/07/19 11:08 Non-Formulary Medication ( See Comment Field Below ) REMOVE LIDODERM PATCH DAILY XX 04/10/19 09:00 04/10/19 10:57 DC Non-Formulary Medication ( See Comment Field Below ) REMOVE LIDODERM PATCH DAILY@21 XX 04/10/19 21:00 04/13/19 20:52 Ondansetron HCl (Zofran Odt) 4 mg Q4HP PRN PO NAUSEA OR VOMITING 04/01/19 11:15 04/08/19 12:48 DC 04/05/19 08:03 Ondansetron HCl (Zofran Odt) 4 mg Q4HP PRN PO NAUSEA OR VOMITING 04/09/19 13:30 Oxycodone HCl (Roxicodone, Oxyir) 2.5 mg DAILY@0800,1200 PO 04/01/19 12:00 04/02/19 16:36 DC 04/02/19 12:10 Oxycodone HCl (Roxicodone, Oxyir) 2.5 mg DAILY@1600,2000 PO 04/01/19 16:00 04/02/19 16:36 DC 04/01/19 21:29 Oxycodone HCl (Roxicodone, Oxyir) 2.5 mg Q4HP PRN PO PAIN 04/02/19 16:45 04/08/19 12:48 DC 04/08/19 07:03 Oxycodone HCl (Roxicodone, Oxyir) 2.5 mg Q4HP PRN PO PAIN 04/09/19 13:00 04/14/19 06:27 Oxycodone HCl (Roxicodone, Oxyir) 5 mg ASDIRECTED PRN PO PAIN 04/01/19 11:15 04/02/19 16:36 DC Pantoprazole Sodium (Protonix) 40 mg BID PO 04/03/19 21:00 04/08/19 12:48 DC 04/07/19 21:00 Pantoprazole Sodium (Protonix) 40 mg BID PO 04/09/19 21:00 04/14/19 08:52 Pantoprazole Sodium (Protonix) 40 mg DAILY PO 04/01/19 09:00 04/03/19 10:09 DC 04/03/19 08:52 Patient Own Medication (Patient'S Own Med) ANAGRELIDE (AGRYLIN) 0.... QAM PO 04/02/19 09:00 04/08/19 12:48 DC 04/07/19 08:35 Patient Own Medication (Patient'S Own Med) ANAGRELIDE (AGRYLIN) 0.... QAM PO 04/10/19 09:00 04/14/19 08:50 Patient Own Medication (Patient'S Own Med) ANAGRELIDE (AGRYLIN) 0.... QPM PO 04/01/19 21:00 04/08/19 12:48 DC 04/07/19 21:01 Patient Own Medication (Patient'S Own Med) ANAGRELIDE (AGRYLIN) 0.... QPM PO 04/09/19 21:00 04/13/19 20:54 Rivaroxaban (Xarelto) 10 mg DAILY@1800 PO 03/31/19 18:00 04/02/19 17:18 DC 04/02/19 17:02 Senna (Senokot) 1 tab QHS PO 03/31/19 21:00 04/02/19 11:43 DC 04/01/19 21:30 Senna (Senokot) 1 tab QHS PO 04/06/19 21:00 04/06/19 13:33 DC Senna (Senokot) 2 tab QHS PO 04/02/19 21:00 04/06/19 10:09 DC 04/02/19 21:07 Tramadol HCl (Ultram) 25 mg Q8HP PRN PO MODERATE PAIN (PS 5-7) 03/31/19 21:00 04/01/19 11:16 DC 04/01/19 02:50 Tramadol HCl (Ultram) 50 mg Q6HP PRN PO MODERATE PAIN (PS 5-7) 03/31/19 16:30 03/31/19 17:13 ALYSSA SALINAS MD Apr 14, 2019 10:34
--- NOTE | 2019-04-14 10:56 | PMRDS ---
DATE OF ADMISSION: 03/31/2019 DATE OF DISCHARGE: ___04/14/19 CHIEF COMPLAINT/DISCHARGE DIAGNOSES: Hip fracture with deep venous thrombosis (DVT). HISTORY OF PRESENT ILLNESS: 83F pmh HTN, heart murmur, thrombocythemia, left hip surgery 2006 who fell at home onto her right side and presented to [facility] ED on 03-29-19 with difficulty walking. Hip X-ray showed, Comminuted intertrochanteric fracture of the right proximal femur in varus. Diffuse osteoporosis. Old healed superior pubic ramus fracture on the right. She was evaluated by orthopedics who performed an ORIF on 03-29-19 with post-op anemia requiring blood transfusion. Patient had considerable pain post-operatively and was started on long acting Morphine. She was evaluated by therapy, found to be well below her prior level of function and deemed appropriate for discharge to ARU on 03-31-19. On initial eval patient reports she is constipated, although usually she takes Imodium for chronic loose stools. She also reports she does not take Amiloride, but instead takes Anagrelide for her thrombocythemia. She is concerned about having any pain and is hoping to take pain medication around the clock like she did with her hip surgery in 2006. She expressed understanding that there was no guarantee she would have no pain, that she would need to work through some of it in order to get up functioning safely. PAST MEDICAL HISTORY: As per history of present illness (HPI). HOSPITAL COURSE: The patient was admitted and enrolled in a comprehensive physical therapy (PT)/occupational therapy (OT) program. She received 24-hour nursing supervision, and weekly team meetings were held to discuss her progress. The patient was diagnosed with a right lower extremity DVT. CT angio of chest was negative, and she was started on Eliquis. Imaging was obtained to monitor the progression of her right lower extremity DVT in the setting of a known blood disorder, thrombocythemia, with CT abdomen and pelvis negative for proximal migration. The patient was sent out to intensive care unit (ICU) on 04/08/2019 for suspected pulmonary embolism (PE). However, repeat imaging again was negative. The patient was evaluated by cardiology for new diagnosis of aortic stenosis, and her blood pressure medications were adjusted. The patient was also noted to have pancreatic duct dilatation and cholelithiasis. However, CT imaging did not show pancreatic mass and/or gallbladder thickening. The patient's pain was well tolerated with low-dose oxycodone, Lidoderm patching, and low-dose gabapentin nightly. Overall, the patient made significant gains in therapy and was deemed medically and functionally stable to return home with her daughter with followup with cardiology, primary care physician, and orthopedics. Thank you for this referral. TYRON
== END 2019-04-14 14:00 | disposition home health service (06) | DRG 560 ==
LOC: M PM&R 14:45 → UNDODISIN 04-08 08:25
PROVIDERS: ADMIT Physical Medicine & Rehabilitation; ATTEND Physical Medicine & Rehabilitation
DX: S72.141E Displaced intertrochanteric fracture of right femur, subsequent encounter for open fracture type I or II with routine healing (principal); I82.431 Acute embolism and thrombosis of right popliteal vein; I10 Essential (primary) hypertension; D69.6 Thrombocytopenia, unspecified; R01.1 Cardiac murmur, unspecified; W18.09XD Striking against other object with subsequent fall, subsequent encounter; Y92.009 Unspecified place in unspecified non-institutional (private) residence as the place of occurrence of the external cause; R26.2 Difficulty in walking, not elsewhere classified; M81.0 Age-related osteoporosis without current pathological fracture; K59.00 Constipation, unspecified; D64.9 Anemia, unspecified; Z79.891 Long term (current) use of opiate analgesic; Z79.01 Long term (current) use of anticoagulants; Z79.899 Other long term (current) drug therapy; Z91.040 Latex allergy status; Z87.81 Personal history of (healed) traumatic fracture; M51.9 Unspecified thoracic, thoracolumbar and lumbosacral intervertebral disc disorder; H04.129 Dry eye syndrome of unspecified lacrimal gland; Z90.49 Acquired absence of other specified parts of digestive tract; Z86.73 Personal history of transient ischemic attack (TIA), and cerebral infarction without residual deficits; R06.82 Tachypnea, not elsewhere classified; R09.02 Hypoxemia; L40.9 Psoriasis, unspecified; R00.0 Tachycardia, unspecified; M48.55XD Collapsed vertebra, not elsewhere classified, thoracolumbar region, subsequent encounter for fracture with routine healing; I27.20 Pulmonary hypertension, unspecified; I35.0 Nonrheumatic aortic (valve) stenosis

== ENCOUNTER 2019-04-08 08:25 | Inpatient (IN) | payer MEDICARE ==
[~2019-04-08] VITALS: Ht 167.6 cm; Wt 62.6 kg
[~2019-04-08 08:25] MED LIST changes: +ANAG0.5C2 PO
[2019-04-08 08:47] VITALS: BP 127/58
[2019-04-08] MEDS ORDERED: FERROUS GLUCONATE 324 MG TAB PO SCH (09:00)
[2019-04-08] MEDS ORDERED: traMADol 50 MG TAB PO PRN (11:45)
[2019-04-08 11:55] VITALS: BP 121/57
--- NOTE | 2019-04-08 12:35 | HPEPDOC ---
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 Patient had an open reduction internal fixation of her right intertrochanteric hip fracture on 03/30/2019. Patient expressed post-operative anemia requiring blood transfusions. Patient was continuing with physical therapy and was found to have a blood clot of her right lower extremity on 04/01. Duplex ultrasound had revealed a right lower extremity with a non-occlusive thrombus from the popliteal vein to the proximal femoral vein. This morning. Patient reports drinking shortness of breath that started at 7:30 in the morning, slowly progressed and 8:30 rapid assessment was called. Patient was found to be short of breath, saturating at 85% on 5 L nasal cannula. Patient report experiencing some chest discomfort. Denied any nausea, vomiting or any significant productive cough. She denied abdominal pain, constipation, diarrhea, or urinary discomfort. Has not experienced any fevers, chills and last 2 weeks. Home Medications Scheduled Anagrelide HCl (Anagrelide HCl) 0.5 Mg Capsule, 1.5 MG PO QHS, (Reported) Losartan/Hydrochlorothiazide (Losartan-Hctz 50-12.5 mg Tab) 1 Each Tablet, 1 TAB PO QHS, (Reported) Morphine Sulfate (Ms Contin) 15 Mg Tablet.er, 1 TAB PO BID for pain Rivaroxaban (Xarelto) 10 Mg Tablet, 10 MG PO DAILY Scheduled PRN Acetaminophen (Acetaminophen) 500 Mg Tablet, 1,000 MG PO Q8H PRN for BACK PAIN Cyclosporine (Restasis) 0.05% Droperette, 1 DROP OU BID PRN for DRY EYES, (Reported) Loperamide HCl (Imodium A-D) 2 Mg Capsule, 2 MG PO QHS PRN for DIARRHEA, (Repor constantino) Tramadol HCl (Tramadol HCl) 50 Mg Tablet, 1-2 TAB PO Q4H PRN for PAIN Allergies Coded Allergies: No Known Drug Allergies (Verified Allergy, Unknown, 03/29/19) latex (Verified Allergy, Unknown, unknown, 03/29/19) Past Medical History Medical History HTN, Thrombocythemia, Osteoporosis, T11-L1 compression fracture, Degenerative joint disease, Right pubic rami fracture, 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, Chronic dry eyes, Right intertrochanteric fracture s/p ORIF Surgical History Middle ear implant Left hip fracture s/p ORIF 2006 Right hip fracture s/p ORIF 2019 Hysterectomy w/ bladder suspension Family History - Family history of leukemia and stroke Social History - Denies the use of alcohol, tobacco or illicit drugs - Denies recent travel or sick contacts - Lives at home Review of Systems Other systems 10 point review of systems complete, all negative otherwise stated in HPI Vital Signs - Vitals: BP 128/86, HR 115, RR 20, Sat 85%NC5L, Temp 97.9F - General: Lying in bed, Uncomfortable, AAOx3 - HEENT: NC, AT, PERRLA - CVS: Tachycardic , +S1S2 - Lungs: Fair air entry bilaterally, No appreciable wheezing / rales / rhonchi - Abdomen: Soft, Non-distended, Non-tender - Extremities: No lower extremity edema, No calf tenderness - Neuro: No focal motor or sensory deficit - Skin: No visible rashes Plan / VTE VTE Prophylaxis Ordered?: Yes Plan Plan Shortness of breath - possibly 2/2 pulmonary embolism - Patient experienced an onset shortness of breath this morning - Patient has a recent history of blood clots in her right lower extremity found on duplex ultrasound 04/02 - Was experiencing hypoxia with saturations at 85% on nasal cannula 5 L - EKG was reviewed and revealed sinus tachycardia - Troponin first set negative - Will order CT angiogram of chest - c/w Full anticoagulation with Eliquis Recent DVT of RLE - c/w Full anticoagulation with Eliquis HTN - BP well controlled currently - c/w Metoprolol with holding parameters - Will hold Losartan / HCTZ (re: elevated Cr) Thrombocythemia - c/w Anagrelide Osteoporosis / T11-L1 compression fracture / Degenerative joint disease / Right pubic rami fracture - c/w Pain medications - Will c/w PT and OT Anemia - s/p Transfusions post-operatively - c/w iron supplementation 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
[2019-04-08 13:45] VITALS: BP 100/53
[2019-04-08] MEDS: METOPROLOL SUCC *XL* 25MG TAB (TopROL *XL*) PO SCH ×2 (13:45→21:00)
[2019-04-08] MEDS: NS 1,000 ML IV SCH (13:47)
[2019-04-08 14:44] LABS: CPK CREATINE PHOSPHOKINASE 28 U/L (26-192); MB/CK RELATIVE INDEX 3.57 (< OR =4); TROPONIN I < 0.02 NG/ML (< 0.10)
[2019-04-08 15:00] VITALS: BP 97/53
[2019-04-08] MEDS: ANAGRELIDE 0.5 MG PO SCH (15:27)
[2019-04-08 16:00] VITALS: BP 109/53
[2019-04-08 20:00] VITALS: BP 105/51
[2019-04-08 20:22] LABS: CK-MB VALUE MASS < 1.0 NG/ML (<3.6); CPK CREATINE PHOSPHOKINASE 21 U/L (26-192); MB/CK RELATIVE INDEX 4.76 (< OR =4); TROPONIN I < 0.02 NG/ML (< 0.10)
[2019-04-08] MEDS ORDERED: GABAPENTIN 100 MG CAP PO SCH (21:00)
[2019-04-08] MEDS ORDERED: MORPHINE 15 MG SA TAB PO SCH (21:00)
[2019-04-08] MEDS ORDERED: ANAGRELIDE 0.5 MG PO SCH (21:00)
[2019-04-08] MEDS ORDERED: APIXABAN 5 MG TAB (ELIQUIS) PO SCH (21:00)
[2019-04-08] MEDS: FERROUS GLUCONATE 324 MG TAB PO SCH (21:54)
[2019-04-08] MEDS: PANTOPRAZOLE 40MG TAB (PROTONIX) PO SCH (21:54)
[2019-04-08] MEDS: APIXABAN 5 MG TAB (ELIQUIS) PO SCH (21:54)
[2019-04-09] VITALS: BP 115/58
[2019-04-09] MEDS: oxyCODONE 5MG TAB PO PRN ×2 (00:20→05:15)
[2019-04-09 04:00] VITALS: BP 121/56
[2019-04-09 05:19] LABS: BASO % 0.2 % (0.0-1.0); EOS # 0.2 10^3/uL (0.0-0.5); EOS % 4.7 % (0.0-3.0); HEMATOCRIT 23.5 % (36.0-47.0); HEMOGLOBIN 7.4 g/dl (12.0-15.5); LYMPH # 1.6 10^3/uL (1.5-5.0); LYMPH % 32.9 % (24.0-44.0); MEAN CORPUSCULAR HEMOGLOBIN 31.2 pg (27.0-33.0); MEAN CORPUSCULAR HGB CONC 31.5 g/dl (32.0-36.5); MEAN CORPUSCULAR VOLUME 99.2 fl (80.0-96.0); MONO # 0.3 10^3/uL (0.0-0.8); NEUTROPHILS # 2.7 10^3/uL (1.5-8.5); NEUTROPHILS % 55.2 % (36.0-66.0); RED BLOOD COUNT 2.37 10^6/uL (4.00-5.40); WHITE BLOOD COUNT 4.9 10^3/uL (4.0-10.0)
[2019-04-09 05:33] LABS: PLATELET COUNT, AUTOMATED 216 10^3/uL (150-450)
[2019-04-09] MEDS: NS 1,000 ML IV SCH (05:37)
[2019-04-09 05:43] LABS: CALCIUM LEVEL 7.7 MG/DL (8.8-10.2); CREATININE FOR GFR 1.1 MG/DL (0.55-1.30); GLOMERULAR FILTRATION RATE 50.3 (>32); MAGNESIUM LEVEL 1.9 MG/DL (1.8-2.4)
--- NOTE | 2019-04-09 06:20 | ECHO ---
DATE OF PROCEDURE: 04/08/2019 REFERRING PHYSICIAN: Dr. Neal Vargas. PATIENT LOCATION: Room 3204 REASON FOR STUDY: Dyspnea 2D MEASUREMENTS: IVS - 1.0 cm LV - 4.8 cm LVPW - 0.9 cm LA - 4.2 cm Aorta - 3.4 cm IVC - 2.3 cm DOPPLER MEASUREMENTS: Peak velocity across the aortic valve - 3.6 meters per second Peak velocity across the LVOT - 1.2 meters per second Peak gradient across the aortic valve - 50 mmHg. Mean gradient across the aortic valve - 30 mmHg Mitral E - 0.79, Mitral A - 1.6 with a ratio of 0.5 Maximum tricuspid valve - 3.0 meters per second 2D COMMENTS: 1. Normal left ventricular size, wall thickness, and a normal global left ventricular systolic function with a hyperdynamic left ventricle. The estimated ventricular systolic function was 70-75%. 2. Mildly enlarged left atrium. Normal right atrium and right ventricle. 3. The atrial septum appeared to be normal without evidence of defect or shunt. 4. Normal aortic root. 5. No pericardial effusion seen. 6. Mildly calcified aortic valve with normal leaflet excursion. Moderately calcified mitral annulus with normal anterior mitral leaflet motion. 7. Normal tricuspid valve. The pulmonic valve and proximal pulmonary artery branches were not well visualized. 8. The inferior vena cava was dilated, central venous pressure mildly elevated. Doppler detects mild to moderate mitral regurgitation, mild to moderate tricuspid regurgitation. The calculated pulmonary artery systolic pressure varies between 40-50 mmHg. Abnormal relaxation pattern was noted across the mitral valve leaflets as well as the mitral valve annulus consistent with features of grade 1 left ventricular diastolic dysfunction. IMPRESSION: 1. Normal global left ventricular systolic function. There are features of grade 1 left ventricular diastolic dysfunction manifested by abnormal relaxation. 2. Calcific aortic valve with moderate aortic stenosis but no aortic radiation. 3. Mitral annulus calcification with a mildly enlarged left atrium, mild to moderate mitral regurgitation. There was also mild calcific mitral stenosis with a peak gradient of 12 mmHg and a mean gradient of 5 mmHg across the mitral valve. 4. Mild to moderate tricuspid regurgitation with moderate pulmonary hypertension.
[2019-04-09] MEDS ORDERED: GABA-1171 PO (07:04)
[2019-04-09] MEDS ORDERED: ELIQ5TAB PO (07:04)
[2019-04-09] MEDS ORDERED: FERR32TA PO (07:04)
[2019-04-09] MEDS ORDERED: METO1TAB32 PO (07:04)
[2019-04-09] MEDS ORDERED: OXYC-517 PO (07:04)
[2019-04-09] MEDS ORDERED: PANT40TA3 PO (07:04)
[2019-04-09 08:00] VITALS: BP 122/57
[2019-04-09] MEDS: ANAGRELIDE 0.5 MG PO SCH (08:50)
[2019-04-09 08:51] VITALS: BP 122/57
[2019-04-09] MEDS: FERROUS GLUCONATE 324 MG TAB PO SCH (08:51)
[2019-04-09] MEDS: APIXABAN 5 MG TAB (ELIQUIS) PO SCH (08:51)
[2019-04-09] MEDS: PANTOPRAZOLE 40MG TAB (PROTONIX) PO SCH (08:51)
[2019-04-09] MEDS: METOPROLOL SUCC *XL* 25MG TAB (TopROL *XL*) PO SCH (08:51)
[2019-04-09] MEDS ORDERED: RIVAROXABAN 10 MG TAB (XARELTO) PO SCH (09:00)
--- NOTE | 2019-04-09 10:59 | DS.PDOC ---
Discharge Summary General Date of Admission Apr 08, 2019 at 08:43 Date of Discharge 04/09/2019 Discharge Summary PROCEDURES PERFORMED DURING STAY: [None]. 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 Patient had an open reduction internal fixation of her right intertrochanteric hip fracture on 03/30/2019. Patient expressed post-operative anemia requiring blood transfusions. Patient was continuing with physical therapy and was found to have a blood clot of her right lower extremity on 04/01. Duplex ultrasound had revealed a right lower extremity with a non-occlusive thrombus from the popliteal vein to the proximal femoral vein. On 04/08 AM, patient reports experiencing shortness of breath that started at 7:30 in the morning, slowly progressed and 8:30 rapid assessment was called. Patient was found to be short of breath, saturating at 85% on 5 L nasal cannula. Patient report experiencing some chest discomfort. Denied any nausea, vomiting or any significant productive cough. Patient was transferred to the progressive care unit and had a workup via CT angiogram of her chest to evaluate for pulmonary embolism. Imaging was negative for any signs of emboli effusion fluid overload or infiltrate. Troponin 3 have been negative. EKG is without any ischemic changes. Clinically patient had returned back to her baseline upon arrival to her room. Patient had an echocardiogram completed that had revealed moderate aortic stenosis and moderate pulmonary hypertension. Patient has been advised of the findings of echocardiogram and a need for repeat echocardiogram in the near future. Patient will be returning back to acute rehabilitation unit where he can continue to participate with physical therapy and occupational therapy. DISCHARGE MEDICATIONS: Please see below. ALLERGIES: Please see below. PHYSICAL EXAMINATION ON DISCHARGE: Vitals (See below) General: Lying in bed, no acute distress, comfortable, AAOx3 HEENT: NC, AT CVS: RRR, +S1S2, + Systolic murmur Lungs: Fair air entry b/l, auscultation is free of rhonchi, rales or wheezing Abdomen: Soft, ND, N Extremities: - Edema, - Calf tenderness LABORATORY DATA: Please see below. ACTIVITY: [As tolerated]. DISCHARGE PLAN: Return back to acute rehabilitation unit DISPOSITION: Return back to acute rehabilitation unit DISCHARGE CONDITION: [Stable]. TIME SPENT ON DISCHARGE: 35 minutes Vital Signs/I&Os Vital Signs Date Time Temp Pulse Resp B/P (MAP) Pulse Ox O2 Delivery O2 Flow Rate FiO2 04/09/19 08:51 98 122/57 04/09/19 08:00 98.3 16 97 Room Air 04/08/19 15:00 99 04/08/19 09:00 2.0 I&O- Last 24 Hours up to 6 AM 04/09/19 06:00 Intake Total 2973 ml Output Total 900 ml Balance 2073 ml Laboratory Data Labs 24H Laboratory Tests 2 04/08/19 13:58: Total Creatine Kinase 28, Creatine Kinase MB 1.0, Creatine Kinase MB Relative Index 3.57, Troponin I < 0.02 04/08/19 19:47: Total Creatine Kinase 21L, Creatine Kinase MB < 1.0, Creatine Kinase MB Relative Index 4.76H, Troponin I < 0.02 04/09/19 04:42: Immature Granulocyte % (Auto) 1.0, Neutrophils (%) (Auto) 55.2, Lymphocytes (%) (Auto) 32.9, Monocytes (%) (Auto) 6.0H, Eosinophils (%) (Auto) 4.7H, Basophils (%) (Auto) 0.2, Neutrophils # (Auto) 2.7, Lymphocytes # (Auto) 1.6, Monocytes # (Auto) 0.3, Eosinophils # (Auto) 0.2, Basophils # (Auto) 0.0, Nucleated Red Blood Cells % (auto) 0.0, Anion Gap 5L, Glomerular Filtration Rate 50.3, Calcium Level 7.7L, Magnesium Level 1.9 CBC/BMP Laboratory Tests 04/09/19 04:42 Discharge Medications Scheduled Anagrelide HCl (Anagrelide HCl) 0.5 Mg Capsule, 1.5 MG PO QHS, (Reported) Apixaban (Eliquis) 5 Mg Tablet, 5 MG PO BID Ferrous Gluconate (Ferrous Gluconate) 324 Mg Tablet, 324 MG PO BID Gabapentin (Gabapentin) 100 Mg Capsule, 100 MG PO QHS Metoprolol Succinate (Metoprolol Succinate) 25 Mg Tab.er.24h, 25 MG PO BID Pantoprazole Sodium (Pantoprazole Sodium) 40 Mg Tablet.dr, 40 MG PO BID Scheduled PRN Oxycodone HCl (Oxycodone HCl) 5 Mg Tablet, 2.5 MG PO Q4HP PRN for PAIN Allergies Coded Allergies: No Known Drug Allergies (Verified Allergy, Unknown, 03/29/19) latex (Verified Allergy, Unknown, unknown, 03/29/19) EDDIE HAINES MD Apr 09, 2019 10:59
[2019-04-10] MEDS ORDERED: APIXABAN 5 MG TAB (ELIQUIS) PO SCH (09:00)
== END 2019-04-09 10:55 | DRG 206 ==
LOC: M ICU 08:43
PROVIDERS: ADMIT Internal Medicine; ATTEND Internal Medicine
DX: R09.02 Hypoxemia (principal); F41.9 Anxiety disorder, unspecified; I10 Essential (primary) hypertension; D47.3 Essential (hemorrhagic) thrombocythemia; M81.0 Age-related osteoporosis without current pathological fracture; Z86.73 Personal history of transient ischemic attack (TIA), and cerebral infarction without residual deficits; Z86.718 Personal history of other venous thrombosis and embolism; M80.88XD Other osteoporosis with current pathological fracture, vertebra(e), subsequent encounter for fracture with routine healing; S72.101D Unspecified trochanteric fracture of right femur, subsequent encounter for closed fracture with routine healing; I27.20 Pulmonary hypertension, unspecified; I35.0 Nonrheumatic aortic (valve) stenosis; Z79.899 Other long term (current) drug therapy; Z91.040 Latex allergy status

== ENCOUNTER 2019-04-28 16:33 | Inpatient (IN) | payer MEDICARE, OTHER ==
[~2019-04-28] VITALS: Ht 152.4 cm; Wt 59.1 kg
[~2019-04-28 16:33] MED LIST changes: +CALCI50TA PO; +ELIQ5TAB PO; +FERR32TA PO; +GABA-1171 PO; +HYDR25TAB PO; +ISOS5TA PO; +METO1TAB32 PO; +METO1TAB7 PO; +OXYC-517 PO; +PANT40TA3 PO
[2019-04-28] MEDS ORDERED: NS 500 ML IV ONE (17:30)
[2019-04-28 19:03] LABS: BASO % 0.3 % (0.0-1.0); EOS # 0.1 10^3/uL (0.0-0.5); EOS % 2.9 % (0.0-3.0); HEMATOCRIT 28.5 % (36.0-47.0); HEMOGLOBIN 8.9 g/dl (12.0-15.5); LYMPH # 1.1 10^3/uL (1.5-5.0); LYMPH % 30.8 % (24.0-44.0); MEAN CORPUSCULAR HEMOGLOBIN 30.6 pg (27.0-33.0); MEAN CORPUSCULAR HGB CONC 31.2 g/dl (32.0-36.5); MEAN CORPUSCULAR VOLUME 97.9 fl (80.0-96.0); MONO # 0.3 10^3/uL (0.0-0.8); MONO % 9.4 % (0.0-5.0); NEUTROPHILS # 1.9 10^3/uL (1.5-8.5); PLATELET COUNT, AUTOMATED 206 10^3/uL (150-450); RED BLOOD COUNT 2.91 10^6/uL (4.00-5.40); WHITE BLOOD COUNT 3.4 10^3/uL (4.0-10.0)
[2019-04-28 19:31] LABS: INFLUENZA A AMPLIFICATION NEGATIVE (NEGATIVE); INFLUENZA B AMPLIFICATION POSITIVE (NEGATIVE)
[2019-04-28 19:34] LABS: ALBUMIN 3.5 GM/DL (3.2-5.2); ALT/SGPT 12 U/L (12-78); BILIRUBIN,DIRECT 0.1 MG/DL (0.0-0.2); BILIRUBIN,TOTAL 0.4 MG/DL (0.2-1.0); BLOOD UREA NITROGEN 29 MG/DL (7-18); CALCIUM LEVEL 8.2 MG/DL (8.8-10.2); CARBON DIOXIDE LEVEL 29 MEQ/L (21-32); CHLORIDE LEVEL 103 MEQ/L (98-107); CK-MB VALUE MASS 1.4 NG/ML (<3.6); CPK CREATINE PHOSPHOKINASE 37 U/L (26-192); GLOMERULAR FILTRATION RATE 35.1 (>32); GLUCOSE, FASTING 94 MG/DL (70-100); MB/CK RELATIVE INDEX 3.78 (< OR =4); NT-PRO BNP 2886 PG/ML (<450); POTASSIUM SERUM 4.3 MEQ/L (3.5-5.1); SODIUM LEVEL 138 MEQ/L (136-145); THYROID STIMULATING HORMONE 0.958 uIU/ML (0.358-3.740); TOTAL PROTEIN 6.4 GM/DL (6.4-8.2); TROPONIN I < 0.02 NG/ML (< 0.10)
[2019-04-28] MEDS ORDERED: ISOVUE-370 76% 100ML VIAL (Q9967) As Ordered ONE (19:37)
[2019-04-28 20:17] LABS: INR 1.48; PROTHROMBIN TIME 17.7 SECONDS (11.8-14.0)
--- NOTE | 2019-04-28 20:28 | REPVR ---
PROCEDURE INFORMATION: Exam: CT Angiography Chest With Contrast Exam date and time: 04/28/2019 7:41 PM Age: 83 years old Clinical indication: Shortness of breath; Additional info: Shortness of breath, recent hospitalization TECHNIQUE: Imaging protocol: Computed tomographic angiography of the chest with intravenous contrast. 3D rendering: MIP and/or 3D reconstructed images were created by the technologist. Radiation optimization: All CT scans at this facility use at least one of these dose optimization techniques: automated exposure control; mA and/or kV adjustment per patient size (includes targeted exams where dose is matched to clinical indication); or iterative reconstruction. Contrast material: ISOVUE 370; Contrast volume: 75 ml; Contrast route: IV; COMPARISON: CT ANGIO CHEST 04/08/2019 8:30 AM FINDINGS: Pulmonary arteries: There are no pulmonary emboli. Aorta: The aorta demonstrates mild atherosclerotic calcification. There is no aortic dissection or aneurysm. Lungs: Well inflated lungs consistent with COPD. Pleural space: Unremarkable. No pneumothorax. No pleural effusion. Heart: Dense calcifications mitral valve annulus. There is mild atherosclerotic calcification of the coronary arteries. Lymph nodes: Unremarkable. No enlarged lymph nodes. Bones/joints: Osteoporosis. Stop spine mild. Multiple compression deformities throughout the thoracic spine as previously described, stable in appearance. Soft tissues: Unremarkable. IMPRESSION: 1. There is no aortic dissection or aneurysm. 2. There are no pulmonary emboli. 3. Well inflated lungs consistent with COPD. 4. Multiple compression deformities throughout the thoracic spine as previously described, stable in appearance. 5. No acute pulmonary parenchymal abnormalities. Electronically signed by: Akash Li On 04/28/2019 20:28:37 PM
[2019-04-28] MEDS ORDERED: OSELTAMIVIR PHOSPHATE 75 MG CAP (TAMIFLU) PO ONE (20:30)
--- NOTE | 2019-04-28 20:35 | ECGEPIP ---
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
[2019-04-28] MEDS ORDERED: GABAPENTIN 100 MG CAP PO SCH (21:00)
[2019-04-28] MEDS ORDERED: ACET-683 PO (22:05)
[2019-04-28] MEDS ORDERED: FERR32TA PO (22:05)
[2019-04-28] MEDS ORDERED: HYDR25TAB PO (22:05)
[2019-04-28] MEDS ORDERED: PANT40TA3 PO (22:05)
[2019-04-28] MEDS ORDERED: METO1TAB7 PO (22:05)
[2019-04-28] MEDS ORDERED: ISOS5TA PO (22:05)
[2019-04-28] MEDS ORDERED: ANAG0.5C2 PO (22:05)
[2019-04-28] MEDS ORDERED: OXYC-517 PO (22:05)
[2019-04-28] MEDS ORDERED: OYST500T7 PO (22:05)
[2019-04-28] MEDS ORDERED: GABA-1171 PO (22:05)
[2019-04-28] MEDS ORDERED: ELIQ5TAB PO (22:05)
[2019-04-28] MEDS ORDERED: PILL CUTTER 1 EACH XX PRN (22:30)
[2019-04-28] MEDS ORDERED: ACETAMINOPHEN 500 MG TAB PO PRN (22:30)
[2019-04-28] MEDS ORDERED: oxyCODONE 5MG TAB PO PRN (22:30)
[2019-04-28] MEDS: APIXABAN 5 MG TAB (ELIQUIS) PO SCH (23:01)
[2019-04-28] MEDS: OYSTER SHELL CALCIUM 500 MG TAB PO SCH (23:01)
[2019-04-28] MEDS: METOPROLOL SUCC (TopROL XL) 50MG **XL** TAB PO SCH (23:32)
--- NOTE | 2019-04-28 23:41 | HPE ---
DATE OF ADMISSION: 04/28/2019 CHIEF COMPLAINT: Shortness of breath, fever and chills and cough. HISTORY OF THE PRESENT ILLNESS: This is an 83-year-old female on chronic Eliquis for deep vein thrombosis (DVT) prophylaxis due to recent hip open reduction internal fixation (ORIF). Presents to the emergency room with a 1-week history of worsening shortness of breath, low grade temperature of 99 taken at home, chills, and a dry cough. The patient was found to have hypoxia by Public Health Nurse today with saturations in the 80s, and was brought into the emergency room for further evaluation. The patient otherwise denies any headache, has chronic pain in her joints, back, hips, none out of the ordinary. No muscle aches. No headaches, nausea, vomiting, diarrhea, abdominal pain, sore throat, ear discharge. The patient has a 2-pound weight loss in the past month due to decrease in appetite. No chest pain, pressure, tightness, palpitations, lightheadedness, near syncope. The patient has had recurrent falls, the last one was in March when she had a right hip fracture, which required ORIF with some postoperative anemia requiring blood transfusion at that time. According to the daughter, who is providing the history at the bedside, she has been living with her daughter. Megan uses a walker since her fracture and was usually independent prior to the fracture. She is alone at her daughter's house when her daughter and the son-in-law are working. Oxygen saturation (O2 sat) in the emergency room (ER) was 94% on room air, currently 95% on two liters nasal cannula. Repeat O2 sat was 89% on room air at 1703 hours. Hospitalist service was called to admit for influenza. The patient has been given Tamiflu, renally dosed. PAST MEDICAL HISTORY: Hypertension. Thrombocythemia Chronic dry eyes. Right intertrochanteric fracture, status post ORIF. 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 T11-L1 compression fracture. Osteoporosis. Right pubic rami fracture. Degenerative joint disease. PAST SURGICAL HISTORY: Left hip fracture, status post ORIF 2006. Right hip fracture, status post ORIF 2019. Hysterectomy with bladder suspension. Middle ear implant. ALLERGIES: No known drug allergies. LATEX allergy. HOME MEDICATIONS: - acetaminophen 1 gram three times a day as needed for pain - Eliquis 5 mg twice a day - calcium carbonate 500 mg twice a day - ferrous gluconate 324 mg daily - gabapentin 100 mg nightly - hydrochlorothiazide 25 mg daily - metoprolol 50 mg twice a day - oxycodone 2.5 mg every 4 hours as needed - Protonix 40 mg daily - anagrelide 0.5 mg nightly, 1 mg daily - isosorbide 5 mg twice a day FAMILY HISTORY: Grandmother with bowel cancer, two brothers with leukemia, father with coronary artery disease, myocardial infarction ([place]). SOCIAL HISTORY: Currently lives with her daughter. Megan uses a walker to get around. Prior to her right hip fracture and repair, the patient was ambulatory and independent. Denies alcohol, tobacco, or illicit drug use. REVIEW OF SYSTEMS: Per history of the present illness, 12-point system otherwise negative. PHYSICAL EXAMINATION: Temperature 99.8, pulse 89, respiratory rate 18, blood pressure 132/60, pulse oximetry 89% on room air. Repeat pulse oximetry is 96% on two liters nasal cannula. Generally, patient is awake, alert, oriented to person, place and time, answering questions appropriately. Anicteric. No jaundice. Speaks in full sentences. No conversational dyspnea. No jugular venous distention (JVD), thyromegaly. No cervical lymphadenopathy. No pharyngeal erythema. No tonsillar exudates. Lungs are clear to auscultation. No wheezing, rales or rhonchi. Heart: S1, S2, sinus rhythm. Abdomen is soft, nontender, nondistended. Positive bowel sounds. Extremities: No cyanosis, clubbing or any pitting edema. LABORATORY DATA: White count 3.4, hemoglobin 8.9, hematocrit 28, platelet count 206. Sodium 138, potassium 4.3, chloride 103, bicarbonate 29, BUN 29, creatinine 1.5, glucose 94, calcium 8.2, total bilirubin 0.4, direct bilirubin 0.1, AST 10, ALT 12, alkaline phosphatase 130, total CK 37, MB fraction 1.4, troponin less than 0.02. BNP 2886. Total protein 6.4, albumin 3.5, TSH 0.958. Two sets of blood cultures are pending. CT angiogram of the chest: No aortic dissection or aneurysm. No pulmonary emboli. Well inflated lungs consistent with chronic obstructive pulmonary disease (COPD). Multiple compression deformities throughout the thoracic spine, as previously described, stable in appearance. No acute pulmonary parenchymal abnormalities. ASSESSMENT AND PLAN: 83-year-old female, presented to the emergency room with a 1-week history of worsening shortness of breath, low grade temperatures, chills and a dry cough, found to have influenza A. Impression: 1. Influenza A. The patient was currently given Tamiflu, renally dosed at 30 mg daily. The patient was hypoxic at home at 80%, according to the daughter, per public health RN who had visited her today and prompted her to come to the ER. Saturations at [facility] of 89% on room air with repeat 94% on room air, currently at 96% room air. 2. Hypertension. The patient will be continued on isosorbide twice a day, metoprolol 50 mg twice a day, appears to be controlled, and hydrochlorothiazide 25 mg daily. 3. Recent right hip fracture. On chronic Eliquis for DVT prophylaxis. 4. Acute kidney injury. Creatinine of 1.5, baseline of 1.1. Hold patient's hydrochlorothiazide due to recent contrast study and acute change in her creatinine. Recheck metabolic panel in the morning. Strict intake and output and avoid nonsteroidal anti-inflammatory drugs (NSAIDs). 5. Chronic thrombocythemia. Continue with anagrelide. 6. Chronic osteoporosis, compression fractures and chronic joint pains. Resume on home dose of [place]. 7. 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 On chronic anticoagulation with Eliquis. 8. Anemia of chronic disease. No acute indication for red blood cell (RBC) transfusion, leukopenia. Monitor with repeat CBC in the morning. 9. DVT prophylaxis. Currently on Eliquis. MTDD
[2019-04-29 00:12] VITALS: BP 148/69
[2019-04-29] MEDS ORDERED: BENZONATATE 100 MG CAP PO PRN (02:45)
[2019-04-29] MEDS: guaiFENesin SYRUP 200 MG/10 ML UDC PO PRN ×2 (03:23→08:42)
[2019-04-29 06:00] VITALS: BP 111/48
[2019-04-29 06:08] LABS: HEMATOCRIT 27.1 % (36.0-47.0); HEMOGLOBIN 8.5 g/dl (12.0-15.5); MEAN CORPUSCULAR HGB CONC 31.4 g/dl (32.0-36.5); MEAN CORPUSCULAR VOLUME 98.9 fl (80.0-96.0); PLATELET COUNT, AUTOMATED 182 10^3/uL (150-450); RED BLOOD COUNT 2.74 10^6/uL (4.00-5.40)
[2019-04-29 06:35] LABS: CALCIUM LEVEL 8.1 MG/DL (8.8-10.2); CREATININE FOR GFR 1.25 MG/DL (0.55-1.30); GLOMERULAR FILTRATION RATE 43.4 (>32); POTASSIUM SERUM 4.1 MEQ/L (3.5-5.1)
[2019-04-29 08:40] VITALS: BP 118/51
[2019-04-29] MEDS: METOPROLOL SUCC (TopROL XL) 50MG **XL** TAB PO SCH (08:40)
[2019-04-29] MEDS: OYSTER SHELL CALCIUM 500 MG TAB PO SCH (08:40)
[2019-04-29] MEDS: APIXABAN 5 MG TAB (ELIQUIS) PO SCH (08:40)
[2019-04-29] MEDS ORDERED: OSELTAMIVIR PHOSPHATE 75 MG CAP (TAMIFLU) PO SCH (09:00)
[2019-04-29] MEDS ORDERED: PANTOPRAZOLE 40MG TAB (PROTONIX) PO SCH (09:00)
[2019-04-29] MEDS ORDERED: hydroCHLOROthiazide 25 MG TAB PO SCH (09:00)
[2019-04-29] MEDS ORDERED: FERROUS GLUCONATE 324 MG TAB PO SCH (09:00)
[2019-04-29] MEDS ORDERED: OSELTAMIVIR PHOSPHATE 30MG CAPSULE PO SCH (09:00)
[2019-04-29] MEDS ORDERED: OSEL30CA PO (11:16)
--- NOTE | 2019-04-29 14:10 | DS.PDOC ---
Discharge Summary General Date of Admission Apr 28, 2019 at 21:02 Date of Discharge 04/29/2019 Primary Care Physician: CHITO BOWDEN MD [facility] Attending Physician: ALBER LIN MD Discharge Summary PROCEDURES PERFORMED DURING STAY: None. ADMITTING/DISCHARGE DIAGNOSES: 1. Influenza B 2. Hypertension 3. Recent right hip fracture 4. Acute kidney injury 5. Chronic thrombocythemia 6. Chronic osteoporosis 7. 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 8. Anemia of chronic disease COMPLICATIONS/CHIEF COMPLAINT: Shortness of breath, fever and chills, cough HISTORY OF PRESENT ILLNESS/HOSPITAL COURSE: Patient is an 83-year-old female presented to the hospital with a one-week history of worsening shortness of breath, low-grade temperature, chills, and a dry cough. Patient was found to be hypoxic by public health nurse came to her house. Patient has noticed a 2 pound weight loss the past month to decrease in appetite. Patient recently had a right hip fracture after a fall about a month ago. She has been using a walker and lives with her daughters since her injury. In the emergency room, patient was found to have influenza B. patient was given supportive care as well as Tamiflu renally dosed at 30 mg per day. Patient did well overnight. Patient walked with physical therapy and did well. Patient was able to climb the stairs and was feeling much better in the morning when she was overnight. Patient was deemed ready for discharge from the hospital. Patient was discharged home on 04/29/2019 DISCHARGE MEDICATIONS: Please see below. ALLERGIES: Please see below. PHYSICAL EXAMINATION ON DISCHARGE: Vitals: (see below) General: Alert and oriented female who was sitting on the edge of her her bed when I walked in the room. Patient not appear to be in any acute distress. HEENT: Moist mucous membranes. Cardiac: Regular rate and rhythm with a grade 3/6 blowing systolic murmur heard loudest in the aortic area. Pulm: Diminished breath sounds bilaterally. No wheezes, rhonchi, or rales. Abd: Soft nontender to palpation, nondistended. Ext: No edema or cyanosis LABORATORY DATA: Please see below. IMAGING: A CT angiography of the chest performed on 04/28/2019 was reported to show no air dissection or aneurysm, no pulmonary emboli, well inflated lungs consistent with COPD, multiple compression deformities throughout the thoracic spine as previously described, stable in appearance. No acute pulmonary parenchymal abnormalities. PROGNOSIS: Good ACTIVITY: As tolerated. DIET: Regular DISCHARGE PLAN/DISPOSITION: Discharged home with services already established. DISCHARGE INSTRUCTIONS: 1. Continue Tamiflu 30 mg daily for the next 4 days. 2. Follow-up with primary care provider in 3-5 days. DISCHARGE CONDITION: Stable. TIME SPENT ON DISCHARGE: Greater than 30 minutes. Vital Signs/I&Os Vital Signs Date Time Temp Pulse Resp B/P (MAP) Pulse Ox O2 Delivery O2 Flow Rate FiO2 04/29/19 11:13 93 Room Air 04/29/19 09:00 1.0 04/29/19 08:40 80 118/51 04/29/19 06:00 97.5 19 I&O- Last 24 Hours up to 6 AM 04/29/19 06:00 Intake Total 500 ml Balance 500 ml Laboratory Data Labs 24H Laboratory Tests 2 04/28/19 18:48: Immature Granulocyte % (Auto) 0.6, Neutrophils (%) (Auto) 56.0, Lymphocytes (%) (Auto) 30.8, Monocytes (%) (Auto) 9.4H, Eosinophils (%) (Auto) 2.9, Basophils (%) (Auto) 0.3, Neutrophils # (Auto) 1.9, Lymphocytes # (Auto) 1.1L, Monocytes # (Auto) 0.3, Eosinophils # (Auto) 0.1, Basophils # (Auto) 0.0, Nucleated Red Blood Cells % (auto) 0.0, Prothrombin Time 17.7H, Prothromb Time International Ratio 1.48, Anion Gap 6L, Glomerular Filtration Rate 35.1, Calcium Level 8.2L, Total Bilirubin 0.4, Direct Bilirubin 0.1, Aspartate Amino Transf (AST/SGOT) 10, Alanine Aminotransferase (ALT/SGPT) 12, Alkaline Phosphatase 130H, Total Creatine Kinase 37, Creatine Kinase MB 1.4, Creatine Kinase MB Relative Index 3.78, Troponin I < 0.02, DT-Wlm-R-Type Natriuretic Peptide 2886H, Total Protein 6.4, Albumin 3.5, Albumin/Globulin Ratio 1.21, Thyroid Stimulating Hormone (TSH) 0.958, Influenza Type A (RT-PCR) NEGATIVE, Influenza Type B (RT-PCR) POSITIVEH 04/29/19 05:50: Nucleated Red Blood Cells % (auto) 0.0, Anion Gap 4L, Glomerular Filtration Rate 43.4, Calcium Level 8.1L CBC/BMP Laboratory Tests 04/28/19 18:48 04/29/19 05:50 Microbiology Microbiology 04/28/19 Blood Culture, Received Pending 04/28/19 Blood Culture, Received Pending Discharge Medications Scheduled Anagrelide HCl (Anagrelide HCl) 0.5 Mg Capsule, 0.5 MG PO QHS, (Reported) Anagrelide HCl (Anagrelide HCl) 0.5 Mg Capsule, 1 MG PO DAILY, (Reported) Apixaban (Eliquis) 5 Mg Tablet, 5 MG PO BID, (Reported) Calcium Carbonate (Oyster Shell Calcium) 500 Mg Tablet, 500 MG PO BID, (Reported) Ferrous Gluconate (Ferrous Gluconate) 324 Mg Tablet, 324 MG PO DAILY, (Reported) Gabapentin (Gabapentin) 100 Mg Capsule, 100 MG PO QHS, (Reported) Hydrochlorothiazide (Hydrochlorothiazide) 25 Mg Tablet, 25 MG PO DAILY, (Reported) Isosorbide Dinitrate (Isosorbide Dinitrate) 5 Mg Tablet, 5 MG PO BID, (Reported) Metoprolol Succinate (Metoprolol Succinate) 50 Mg Tab.er.24h, 50 MG PO BID, (Reported) Oseltamivir Phosphate (Oseltamivir Phosphate) 30 Mg Capsule, 30 MG PO DAILY Pantoprazole Sodium (Pantoprazole Sodium) 40 Mg Tablet.dr, 40 MG PO DAILY, (Reported) Scheduled PRN Acetaminophen (Acetaminophen) 500 Mg Tablet, 1,000 MG PO TID PRN for PAIN, (Reported) Oxycodone HCl (Oxycodone HCl) 5 Mg Tablet, 2.5 MG PO Q4H PRN for PAIN, (Reported) PT HAS ONLY BEEN TAKING MEDICATION AT NIGHT TIME Allergies Coded Allergies: No Known Drug Allergies (Verified Allergy, Unknown, 03/29/19) ZAID UMANZOR DO Apr 29, 2019 14:10
== END 2019-04-29 12:00 | disposition home or self-care (01) | DRG 194 ==
LOC: M ED 16:33 → M ED INP 21:02 → ENRESERVDT 22:35 → ENRESERVTM 22:35 → M MSPAV 23:12
PROVIDERS: ADMIT General Practice; ATTEND Internal Medicine
DX: J10.1 Influenza due to other identified influenza virus with other respiratory manifestations (principal); N17.9 Acute kidney failure, unspecified; M48.55XD Collapsed vertebra, not elsewhere classified, thoracolumbar region, subsequent encounter for fracture with routine healing; D69.6 Thrombocytopenia, unspecified; M81.0 Age-related osteoporosis without current pathological fracture; Z86.73 Personal history of transient ischemic attack (TIA), and cerebral infarction without residual deficits; I10 Essential (primary) hypertension; D63.8 Anemia in other chronic diseases classified elsewhere; Z79.899 Other long term (current) drug therapy; Z79.01 Long term (current) use of anticoagulants

== ENCOUNTER → 2020-02-15 | Outpatient (REF) ==
[~2020-02-15] MED LIST changes: +OSEL30CA PO; +OYST500T8 PO; +PANT40TA29 PO; -PANT40TA3 PO
[2020-02-15 12:00] LABS: COLLAGEN EPINEPHRINE 202 SECONDS (74-162)
[2020-02-15 12:32] LABS: COLLAGEN ADP 149 SECONDS (56-103)
== END ==
LOC: M LAB REF 11:34
DX: D72.819 Decreased white blood cell count, unspecified (principal)

== ENCOUNTER → 2020-09-30 | Outpatient (CLI) | payer MEDICARE, OTHER ==
[~2020-09-30] MED LIST changes: +HYDR-3490 PO; -HYDR25TAB PO
--- NOTE | 2020-09-30 14:51 | REP ---
INDICATION: MALAISE COMPARISON: 03/29/2019. TECHNIQUE: PA/Lateral FINDINGS: Lungs: Clear, no infiltrate. Heart: There is mild cardiomegaly. There is calcification of the mitral annulus Mediastinum: The mediastinal silhouette is unremarkable. Pleural angles: Unremarkable.. Bones and soft tissues.: Multiple compression deformities of the thoracic spine are stable. IMPRESSION: No acute pulmonary disease. Mild cardiomegaly. <Electronically signed by Ten Julien > 09/30/20 [id number]
[2020-09-30 16:16] LABS: BASO % 0.2 % (0.0-1.0); EOS # 0.2 10^3/uL (0.0-0.5); HEMATOCRIT 23.1 % (36.0-47.0); HEMOGLOBIN 7.2 g/dl (12.0-15.5); LYMPH # 1.2 10^3/uL (1.5-5.0); LYMPH % 25.4 % (24.0-44.0); MEAN CORPUSCULAR HEMOGLOBIN 34.8 pg (27.0-33.0); MEAN CORPUSCULAR HGB CONC 31.2 g/dl (32.0-36.5); MEAN CORPUSCULAR VOLUME 111.6 fl (80.0-96.0); MONO # 0.5 10^3/uL (0.0-0.8); MONO % 11.1 % (2.0-8.0); NEUTROPHILS # 2.8 10^3/uL (1.5-8.5); NEUTROPHILS % 58.2 % (36.0-66.0); PLATELET COUNT, AUTOMATED 146 10^3/uL (150-450); RED BLOOD COUNT 2.07 10^6/uL (4.00-5.40); WHITE BLOOD COUNT 4.8 10^3/uL (4.0-10.0)
[2020-09-30 16:57] LABS: ALBUMIN 3.2 GM/DL (3.2-5.2); BILIRUBIN,TOTAL 0.6 MG/DL (0.2-1.0); CALCIUM LEVEL 8.2 MG/DL (8.8-10.2); CREATININE FOR GFR 1.13 MG/DL (0.55-1.30); GLOMERULAR FILTRATION RATE 48.6 (>32); POTASSIUM SERUM 4.4 MEQ/L (3.5-5.1); THYROID STIMULATING HORMONE 1.97 uIU/ML (0.358-3.740); TOTAL PROTEIN 6.4 GM/DL (6.4-8.2)
== END ==
LOC: M WUC 14:10
PROVIDERS: ATTEND Family Medicine
DX: R06.02 Shortness of breath (principal); R53.81 Other malaise; I51.7 Cardiomegaly

== ENCOUNTER → 2020-11-16 | Outpatient (CLI) | payer MEDICARE, OTHER | LOC: M LABSMTC 10:49 | PROVIDERS: ATTEND Internal Medicine Cardiovascular Disease | DX: Z01.812 Encounter for preprocedural laboratory examination (principal); Z20.822 Contact with and (suspected) exposure to COVID-19 ==

== ENCOUNTER 2020-12-26 17:22 | Inpatient (IN) | payer MEDICARE, OTHER ==
[~2020-12-26] VITALS: Ht 152.4 cm; Wt 60.3 kg
--- OUTSIDE RECORDS SUMMARY | 2020-12-26 17:33 | CCD | Continuity of Care Document ---
Author Author Megan NUNEZ MD Organization Unknown Address [address] [place] [address] [address] [place] [address] Phone [phone] Care Team Providers Care Back End Engineer Name Role Phone Dagoberto Giffrod M.D. [facility] [phone] Problems Active Problems Provider Date Essential hypertension Igor Nunez MD Onset: 021 Social History Type Date Description Comments Sex Unknown ETOH Use Denies alcohol use Tobacco Use Start: Unknown Non Smoker Recreational Drug Use Denies Drug Use Allergies, Adverse Reactions, Alerts Description No Known Drug Allergies Medications Active Medications SIG Qnty Indications Ordering Provide r Date Anagrelide HCL 0.5mg Capsules three times a day Marli Red M.D. 0 Furosemide 20mg Tablets Take 1 Tablet By Mouth Every Day Dagoberto Gifford M.D. Ferrous Gluconate 324(38Fe) mg Tab lets by mouth every day Unknown Calcium 500mg Tablets every d ay Unknown Immunizations Description No Information Available Vital Signs Date Vital Result Comment 12/01/2020 1:15pm BP Systolic 116 mmHg BP Diastolic 68 mmHg Body Temperature 98.4 F Height 60 inches 5'0" Weight 134.00 lb BMI (Body Mass Index) 26.2 kg/m2 [place] Body Weight 100 lb Weight 60.782 kg BSA (Body Surface Area) 1.57 m2 Results Description No Information Available Procedures Date Code Description Status 12/01/2020 43166 Office/Outpatient New Moderate M DM 45-59 Minutes Completed Medical Devices Description No Information Available Encounters Type Date Location Provider Dx Diagnosis Office Visit 12/01/2020 1:00p [facility] Edu cady Nunez MD D50.9 Iron deficiency anemia, unsp ecified Assessments Date Code Description Provider 12/01/2020 D50.9 Iron deficiency anemia Igor Nunez MD Plan of Treatment Future Appointment(s):* 01/26/2021 9:15 am - EDU Chris at [facility] * 01/13/2021 9:00 am - Igor Nunez MD at [facility] 12/01/2020 - Igor Nunez MD* D50.9 Iron deficiency anemia* Comments:* Patient appears to have longstanding anemia but has worsened requiring transfusion of packed RBCs. She does show some symptoms from her anemia in hindsight including feeling easily fatigued. She does not report any gross bleeding with bowel movements. Has not had any recent endoscopy or colonoscopy. I explained to her the rationale of doing an upper endoscopy and colonoscopy to find out if she is having some intermittent or low grade bleeding from the gastrointestinal tract, its limitations (i.e. not being able to evaluate the small bowel). She also tells me that her oncologist in [place] is suggesting doing a bone marrow biopsy as it could also be due to an inability to create blood cells as the cause of her anemia.We will schedule her for an upper endoscopy and colonoscopy.I explained to her how to do a split dose bowel prep.I discussed with the patient the details of the proposed procedure, the benefits of performing the procedure, the most common risks on doing the procedure. This may include risks of dehydration from the bowel prep, risks of aspiration, bleeding, perforation as well as the risks of IV sedation. I have given her a chance to ask questions, voice out concerns. Patient has agreed to proceed. Functional Status Description No Information Available Mental Status Description No Information Available Referrals Description No Information Available
--- OUTSIDE RECORDS SUMMARY | 2020-12-26 17:33 | CCD | Continuity of Care Document ---
Author Author Megan NUNEZ MD Organization Unknown Address [address] [place] [address] Phone [phone] Care Team Providers Care Cloth Piecer Name Role Phone Dagoberto Gifford M.D. [facility] [phone] Problems Active Problems Provider Date Essential hypertension [...] lb BMI (Body Mass Index) 26.2 kg/m2 [place] Body Weight 100 lb Weight 60.782 kg BSA (Body Surface Area) 1.57 m2 Results Description No Information Available Procedures Description No Information Available Medical Devices Description No Information Available Encounters Description No Information Available Assessments Date Code Description Provider 12/01/2020 D50.9 Iron deficiency anemia Igor Nunez MD Plan of Treatment 12/01/2020 - Iogr Nunez MD* D50.9 Iron deficiency anemia* Comments:* We will schedule for colonoscopy and upper endoscopy. Functional Status Description No Information Available Mental Status Description No Information Available Referrals Description No Information Available
--- OUTSIDE RECORDS SUMMARY | 2020-12-26 17:33 | CCD ---
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 361256758 ALLERGIES No Known Allergies ENCOUNTERS from 1935 to 2020-12-15 Encounter Location Date Provider Diagnosis [facility] Dermatology [address] [facility] [phone] [place] [address] 07 Dec, 2020 Betsy Kai IMMUNIZATIONS No Information SOCIAL HISTORY Tobacco Use: Social History Observation Description Date Details (start date - stop date) Never Smoker Sex Assigned At : Social History Observation Description Sex Assigned At Unknown Tobacco Use: Question Answer Notes Are you a: never smoker REASON FOR REFERRAL No Information VITAL SIGNS No information MEDICATIONS Medication SIG (Take, Route, Frequency, Duration) Notes Start Da te End Date Status Calcium 500 MG 1 tablet with meals Orally Twice a day for 30 day(s) Active Minocycline HCl 100 MG 1 capsule Orally bid for 30 days Nov, Active Furosemide 20 MG 1 tablet Orally Once a day for 30 day(s) Active metroNIDAZOLE 0.75 % 1 application Externally Twice a day for 30 days Nov, Active Zinc 100 MG 1 tablet Orally Once a day for 30 day(s) Active Vitamin C 500 MG as directed Orally Active Iron 325 (65 Fe) MG 1 tablet Orally Once a day for 30 day(s) Active hydroCHLOROthiazide 25 MG 1 tablet in the morning Oral ly Once a day for 30 day(s) Not-Taking Metoprolol Succinate 25 MG 1 capsule Orally Once a day for 30 day(s) Not-Taking Isosorbide Dinitrate 10 MG 1 tablet Orally Twice a day for 30 day(s) Active Anagrelide HCl 0.5 MG 1 capsule Orally Twice a day for 30 day(s) Active PROCEDURES No Information RESULTS No Results REASON FOR VISIT RASH ON FACE MEDICAL (GENERAL) HISTORY Type Description Date Surgical History Hip & leg 03/2019 Hospitalization History flu 04/2019 Goals Section No Information Health Concerns No Information MEDICAL EQUIPMENT No Information MENTAL STATUS No Information FUNCTIONAL STATUS No Information ASSESSMENTS No Information PLAN OF TREATMENT Medication Medication Name Sig Start Date Stop Date metroNIDAZOLE 0.75 % 1 application Externally Twice a day fo r 30 days Nov, Minocycline HCl 100 MG 1 capsule Orally bid for 30 days Nov, Next Appt Details Provider Name:Betsy Quinn, 2021-01-03 11:45:00 AM, [address] [place] [address] , [place], [place], [facility], Provider Name:Ash Boothe, 03-17 11:15:00 AM, [address] [place] [phone], [place], [place], [facility], Insurance Providers Payer Name Payer Address Payer Phone Insured Name Patient Relati onship to Insured Coverage Start Date Coverage End Date MEDICARE Part A and B [address] [facility] [id number] LUNA [place]WR[place] [facility] [address] [address] [facility] [id number] [place]
--- OUTSIDE RECORDS SUMMARY | 2020-12-26 17:35 | CCD ---
Author Author [facility] Organization [facility] Address Unknown Phone Unavailable Care Team Providers Care Packaging Tech Name Role Phone Mal, A Gracie RN DIGESTIVE Unavailable Unavailable Mal, A Gracie RN DIGESTIVE Unavailable Unavailable Mal, A Gracie RN DIGESTIVE Unavailable Unavailable Mal, A Gracie RN DIGESTIVE Unavailable Unavailable Mal, A Gracie RN DIGESTIVE Unavailable Unavailable Mal, A Gracie RN DIGESTIVE Unavailable Unavailable Mal, A Gracie RN DIGESTIVE Unavailable Unavailable Mal, A Gracie RN DIGESTIVE Unavailable Unavailable Mal, A Gracie RN DIGESTIVE Unavailable Unavailable Mal, A Gracie RN DIGESTIVE Unavailable Unavailable Mal, A Gracie RN DIGESTIVE Unavailable Unavailable Mal, A Gracie RN DIGESTIVE Unavailable Unavailable Mal, A Gracie RN DIGESTIVE Unavailable Unavailable Mal, A Gracie RN DIGESTIVE Unavailable Unavailable Mal, A Gracie RN DIGESTIVE Unavailable Unavailable Mal, A Gracie RN DIGESTIVE Unavailable Unavailable Mal, A Gracie RN DIGESTIVE Unavailable Unavailable Mal, A Gracie RN DIGESTIVE Unavailable Unavailable Mal, A Gracie RN DIGESTIVE Unavailable Unavailable Mla, A Gracie RN DIGESTIVE Unavailable Unavailable Mal, A Gracie RN DIGESTIVE Unavailable Unavailable Mal, A Gracie RN DIGESTIVE Unavailable Unavailable Mal, A Gracie RN DIGESTIVE Unavailable Unavailable Mal, A Gracie RN DIGESTIVE Unavailable Unavailable Mal, A Gracie RN DIGESTIVE Unavailable Unavailable Kocan, J Burt BRANDING MACHINE TENDER Unavailable Unavailable Kocan, J Burt BRANDING MACHINE TENDER Unavailable Unavailable Kocan, J Burt BRANDING MACHINE TENDER Unavailable Unavailable Kocan, J Burt BRANDING MACHINE TENDER Unavailable Unavailable Kocan, J Burt BRANDING MACHINE TENDER Unavailable Unavailable Kocan, J Burt BRANDING MACHINE TENDER Unavailable Unavailable Kocan, J Ubrt BRANDING MACHINE TENDER Unavailable Unavailable Kocan, J Burt BRANDING MACHINE TENDER Unavailable Unavailable Kocan, J Burt BRANDING MACHINE TENDER Unavailable Unavailable Kocan, J Burt BRANDING MACHINE TENDER Unavailable Unavailable Kocan, J Burt BRANDING MACHINE TENDER Unavailable Unavailable Kocan, J Burt BRANDING MACHINE TENDER Unavailable Unavailable Kocan, J Burt BRANDING MACHINE TENDER Unavailable Unavailable Nataliia PASTRANA MD Unavailable Unavailable Nataliia PASTRANA MD Unavailable Unavailable Nataliia PASTRANA MD Unavailable Unavailable Nataliia PASTRANA MD Unavailable Unavailable Nataliia PASTRANA MD Unavailable Unavailable Nataliia PASTRANA MD Unavailable Unavailable Nataliia PASTRANA MD Unavailable Unavailable Nataliia PASTRANA MD Unavailable Unavailable Nataliia PASTRANA MD Unavailable Unavailable Nataliia PASTRANA MD Unavailable Unavailable Nataliia PASTRANA MD Unavailable Unavailable Nataliia PASTRANA MD Unavailable Unavailable Nataliia PASTRANA MD Unavailable Unavailable Nataliia PASTRANA MD Unavailable Unavailable Nataliia PASTRANA MD Unavailable Unavailable Nataliia PASTRANA MD Unavailable Unavailable Nataliia PATSRANA MD Unavailable Unavailable Nataliia PASTRANA MD Unavailable Unavailable Nataliia PASTRANA MD Unavailable Unavailable Nataliia PASTRANA MD Unavailable Unavailable Nataliia PASTRANA MD Unavailable Unavailable Nataliia PASTRANA MD Unavailable Unavailable Nataliia PASTRANA MD Unavailable Unavailable Nataliia PASTRANA MD Unavailable Unavailable Nataliia PASTRANA MD Unavailable Unavailable Nataliia PASTRANA MD Unavailable Unavailable Nataliia PASTRANA MD Unavailable Unavailable Nataliia PASTRANA MD Unavailable Unavailable Nataliia PASTRANA MD Unavailable Unavailable Nataliia PASTRANA MD Unavailable Unavailable Nataliia PASTRANA MD Unavailable Unavailable Nataliia PASTRANA MD Unavailable Unavailable Nataliia PASTRANA MD Unavailable Unavailable Nataliia PASTRANA MD Unavailable Unavailable SKYLER, ANGELES MD Unavailable Unavailable SKYLER, ANGELES MD Unavailable Unavailable SKYLER, ANGELES MD Unavailable Unavailable SKYLER, ANGELES MD Unavailable Unavailable SKYLER, ANGELES MD Unavailable Unavailable SKYLER, ANGELES MD Unavailable Unavailable SKYLER, ANGELES MD Unavailable Unavailable SKYLER, ANGELES MD Unavailable Unavailable SKYLER, ANGELES MD Unavailable Unavailable SKYLER, ANGELES MD Unavailable Unavailable SKYLER, ANGELES MD Unavailable Unavailable SKYLER, ANGELES MD Unavailable Unavailable SKYLER, ANGELES MD Unavailable Unavailable SKYLER, ANGELES MD Unavailable Unavailable SKYLER, ANGELES MD Unavailable Unavailable SKYLER, ANGELES MD Unavailable Unavailable SKYLER, ANGELES MD Unavailable Unavailable SKYLER, ANGELES MD Unavailable Unavailable SKYLER, ANGELES MD Unavailable Unavailable SKYLER, ANGELES MD Unavailable Unavailable SKYLER, ANGELES MD Unavailable Unavailable SKYLER, ANGELES MD Unavailable Unavailable SKYLER, ANGELES MD Unavailable Unavailable SKYLER, ANGELES MD Unavailable Unavailable SKYLER, ANGELES MD Unavailable Unavailable SKYLER, ANGELES MD Unavailable Unavailable SKYLER, ANGELES MD Unavailable Unavailable KSYLER, ANGELES MD Unavailable Unavailable SKYLER, ANGELES MD Unavailable Unavailable SKYLER, ANGELES MD Unavailable Unavailable SKYLER, ANGELES MD Unavailable Unavailable SKYLER, ANGELES MD Unavailable Unavailable SKYLER, ANGELES MD Unavailable Unavailable SYKLER, ANGELES MD Unavailable Unavailable SKYLER, ANGELES MD Unavailable Unavailable SKYLER, ANGELES MD Unavailable Unavailable SKYLER, ANGELES MD Unavailable Unavailable SKYLER, ANGELES MD Unavailable Unavailable SKYLER, ANGELES MD Unavailable Unavailable SKYLER, ANGELES MD Unavailable Unavailable SKYLER, ANGELES MD Unavailable Unavailable SKYLER, ANGELES MD Unavailable Unavailable SKYLER, ANGELES MD Unavailable Unavailable SKYLER, ANGELES MD Unavailable Unavailable SKYLER, ANGELES MD Unavailable Unavailable SKYLER, ANGELES MD Unavailable Unavailable SKYLER, ANGELES MD Unavailable Unavailable SKYLER, ANGELES MD Unavailable Unavailable SKYLER, ANGELES MD Unavailable Unavailable SKYLER, ANGELES MD Unavailable Unavailable SKYLER, ANGELES MD Unavailable Unavailable SKYLER, ANGELES MD Unavailable Unavailable SKYLER, ANGELES MD Unavailable Unavailable SKYLER, ANGELES MD Unavailable Unavailable SKYLER, ANGELES MD Unavailable Unavailable Dionna, Mildred Nash MD Unavailable Unavailable El-Murali, Mildred Nash MD Unavailable Unavailable Lane-Murali, Mildred Nash MD Unavailable Unavailable El-Murali, Mildred Nash MD Unavailable Unavailable El-Murali, Mildred Nash MD Unavailable Unavailable El-Murali, Mildred Nash MD Unavailable Unavailable Lane-Murali, Mildred Nash MD Unavailable Unavailable El-Murali, Mildred Nash MD Unavailable Unavailable El-Murali, A Ziad MD Unavailable Unavailable El-Khally, A Ziad MD Unavailable Unavailable El-Khally, A Ziad MD Unavailable Unavailable El-Khally, A Ziad MD Unavailable Unavailable El-Khally, A Ziad MD Unavailable Unavailable El-Khally, A Ziad MD Unavailable Unavailable El-Khally, A Ziad MD Unavailable Unavailable El-Khally, A Ziad MD Unavailable Unavailable El-Khally, A Ziad MD Unavailable Unavailable El-Khally, A Ziad MD Unavailable Unavailable El-Khally, A Ziad MD Unavailable Unavailable El-Khally, A Ziad MD Unavailable Unavailable El-Khally, A Ziad MD Unavailable Unavailable El-Khally, A Ziad MD Unavailable Unavailable El-Khally, A Ziad MD Unavailable Unavailable El-Khally, A Ziad MD Unavailable Unavailable El-Khally, A Ziad MD Unavailable Unavailable El-Khally, A Ziad MD Unavailable Unavailable El-Khally, A Ziad MD Unavailable Unavailable El-Khally, A Ziad MD Unavailable Unavailable El-Khally, A Ziad MD Unavailable Unavailable El-Khally, A Ziad MD Unavailable Unavailable El-Khally, A Ziad MD Unavailable Unavailable El-Khally, A Ziad MD Unavailable Unavailable El-Khally, A Ziad MD Unavailable Unavailable El-Khally, A Ziad MD Unavailable Unavailable El-Khally, A Ziad MD Unavailable Unavailable El-Khally, A Ziad MD Unavailable Unavailable El-Khally, A Ziad MD Unavailable Unavailable El-Khally, A Ziad MD Unavailable Unavailable El-Khally, A Ziad MD Unavailable Unavailable El-Khally, A Ziad MD Unavailable Unavailable El-Khally, A Ziad MD Unavailable Unavailable El-Khally, A Ziad MD Unavailable Unavailable El-Khally, A Ziad MD Unavailable Unavailable PIERO, MARLI MD Unavailable Unavailable PIERO, MARLI MD Unavailable Unavailable PIERO, MARLI MD Unavailable Unavailable PIERO, MARLI MD Unavailable Unavailable PIERO, MARLI MD Unavailable Unavailable PIERO, MARLI MD Unavailable Unavailable PIERO, MARLI MD Unavailable Unavailable PIERO, MARLI MD Unavailable Unavailable PIERO, MARLI MD Unavailable Unavailable PIERO, MARLI MD Unavailable Unavailable PIERO, MARLI MD Unavailable Unavailable PIERO, MARLI MD Unavailable Unavailable PIERO, MARLI MD Unavailable Unavailable PIERO, MARLI MD Unavailable Unavailable PIERO, MARLI MD Unavailable Unavailable PIERO, MARLI MD Unavailable Unavailable PIERO, MARLI MD Unavailable Unavailable PIERO, MARLI MD Unavailable Unavailable PIERO, MARLI MD Unavailable Unavailable PIERO, MARLI MD Unavailable Unavailable PIERO, MARLI MD Unavailable Unavailable PIERO, MARLI MD Unavailable Unavailable PIERO, MARLI MD Unavailable Unavailable PIERO, MARLI MD Unavailable Unavailable PIERO, MARLI MD Unavailable Unavailable PIERO, MARLI MD Unavailable Unavailable PIERO, MARLI MD Unavailable Unavailable PIERO, MARLI MD Unavailable Unavailable PIERO, MARLI MD Unavailable Unavailable PIERO, MARLI MD Unavailable Unavailable PIERO, MARLI MD Unavailable Unavailable PIERO, MARLI MD Unavailable Unavailable PIERO, MARLI MD Unavailable Unavailable PIERO, MARLI MD Unavailable Unavailable PIERO, MARLI MD Unavailable Unavailable PIERO, MARLI MD Unavailable Unavailable PIERO, MARLI MD Unavailable Unavailable PIERO, MARLI MD Unavailable Unavailable PIERO, MARLI MD Unavailable Unavailable PIERO, MARLI MD Unavailable Unavailable PIERO, MARLI MD Unavailable Unavailable PIERO, MARLI MD Unavailable Unavailable PIERO, MARLI MD Unavailable Unavailable PIERO, MARLI MD Unavailable Unavailable PIERO, MARLI MD Unavailable Unavailable Kocan, J Burt BRANDING MACHINE TENDER Unavailable Unavailable Kocan, J Burt BRANDING MACHINE TENDER Unavailable Unavailable Kocan, J Burt BRANDING MACHINE TENDER Unavailable Unavailable Kocan, J Burt BRANDING MACHINE TENDER Unavailable Unavailable Kocan, J Burt BRANDING MACHINE TENDER Unavailable Unavailable Kocan, J Burt BRANDING MACHINE TENDER Unavailable Unavailable Kocan, J Burt BRANDING MACHINE TENDER Unavailable Unavailable Kocan, J Burt BRANDING MACHINE TENDER Unavailable Unavailable Kocan, J Burt BRANDING MACHINE TENDER Unavailable Unavailable Kocan, J Burt BRANDING MACHINE TENDER Unavailable Unavailable Kocan, J Burt BRANDING MACHINE TENDER Unavailable Unavailable Kocan, J Burt BRANDING MACHINE TENDER Unavailable Unavailable Kocan, J Burt BRANDING MACHINE TENDER Unavailable Unavailable PIERO, MARLI MD Unavailable Unavailable PIERO, MARLI MD Unavailable Unavailable PIERO, MARLI MD Unavailable Unavailable PIERO, MARLI MD Unavailable Unavailable PIERO, MARLI MD Unavailable Unavailable PIERO, MARLI MD Unavailable Unavailable PIERO, MARLI MD Unavailable Unavailable PIERO, MARLI MD Unavailable Unavailable PIERO, MARLI MD Unavailable Unavailable PIERO, MARLI MD Unavailable Unavailable PIERO, MARLI MD Unavailable Unavailable PIERO, MARLI MD Unavailable Unavailable PIERO, MARLI MD Unavailable Unavailable PIERO, MARLI MD Unavailable Unavailable PIERO, MARLI MD Unavailable Unavailable PIERO, MARLI MD Unavailable Unavailable PIERO, MARLI MD Unavailable Unavailable PIERO, MARLI MD Unavailable Unavailable PIERO, MARLI MD Unavailable Unavailable PEIRO, MARLI MD Unavailable Unavailable PIERO, MARLI MD Unavailable Unavailable PIERO, MARLI MD Unavailable Unavailable PIERO, MARLI MD Unavailable Unavailable PIERO, MARLI MD Unavailable Unavailable PIERO, MARLI MD Unavailable Unavailable PIERO, MARLI MD Unavailable Unavailable PIERO, MARLI MD Unavailable Unavailable PIERO, MARLI MD Unavailable Unavailable PIERO, MARLI MD Unavailable Unavailable PIERO, MARLI MD Unavailable Unavailable PIERO, MARLI MD Unavailable Unavailable PIERO, MARLI MD Unavailable Unavailable PIERO, MARLI MD Unavailable Unavailable PIERO, MARLI MD Unavailable Unavailable PIERO, MARLI MD Unavailable Unavailable PIERO, MARLI MD Unavailable Unavailable PIERO, MARLI MD Unavailable Unavailable PIERO, MARLI MD Unavailable Unavailable PIERO, MARLI MD Unavailable Unavailable PIERO, MARLI MD Unavailable Unavailable PIERO, MARLI MD Unavailable Unavailable PIERO, MARLI MD Unavailable Unavailable PIERO, MARLI MD Unavailable Unavailable PIERO, MARLI MD Unavailable Unavailable PIERO, MARLI MD Unavailable Unavailable Sarai GLOVER MD Unavailable Unavailable Sarai GLOVER MD Unavailable Unavailable Mildred BOWDEN MD Unavailable Unavailable Mildred BOWDEN MD Unavailable Unavailable Mildred BOWDEN MD Unavailable Unavailable Mildred BOWDEN MD Unavailable Unavailable Mildred BOWDEN MD Unavailable Unavailable Mildred BOWDEN MD Unavailable Unavailable Mildred BOWDEN MD Unavailable Unavailable Mildred BOWDEN MD Unavailable Unavailable Mildred BOWDEN MD Unavailable Unavailable EMERTON, A CHITO MD Unavailable Unavailable EMERTON, A CHITO MD Unavailable Unavailable EMERTON, A CHITO MD Unavailable Unavailable EMERTON, A CHITO MD Unavailable Unavailable EMERTON, A CHITO MD Unavailable Unavailable EMERTON, A CHITO MD Unavailable Unavailable EMERTON, A CHITO MD Unavailable Unavailable EMERTON, A CHITO MD Unavailable Unavailable EMERTON, A CHITO MD Unavailable Unavailable EMERTON, A CHITO MD Unavailable Unavailable EMERTON, A CHITO MD Unavailable Unavailable EMERTON, A CHITO MD Unavailable Unavailable EMERTON, A CHITO MD Unavailable Unavailable EMERTON, A CHITO MD Unavailable Unavailable EMERTON, A CHITO MD Unavailable Unavailable EMERTON, A CHITO MD Unavailable Unavailable EMERTON, A CHITO MD Unavailable Unavailable EMERTON, A CHITO MD Unavailable Unavailable EMERTON, A CHITO MD Unavailable Unavailable EMERTON, A CHITO MD Unavailable Unavailable EMERTON, A CHITO MD Unavailable Unavailable EMERTON, A CHITO MD Unavailable Unavailable EMERTON, A CHITO MD Unavailable Unavailable EMERTON, A CHITO MD Unavailable Unavailable EMERTON, A CHITO MD Unavailable Unavailable EMERTON, A CHITO MD Unavailable Unavailable EMERTON, A CHITO MD Unavailable Unavailable EMERTON, A CHITO MD Unavailable Unavailable EMERTON, A CHITO MD Unavailable Unavailable EMERTON, A CHITO MD Unavailable Unavailable EMERTON, A CHITO MD Unavailable Unavailable EMERTON, A CHITO MD Unavailable Unavailable EMERTON, A CHITO MD Unavailable Unavailable EMERTON, A CHITO MD Unavailable Unavailable EMERTON, A CHITO MD Unavailable Unavailable EMERTON, A CHITO MD Unavailable Unavailable EMERTON, A CHITO MD Unavailable Unavailable EMERTON, A CHITO MD Unavailable Unavailable EMERTON, A CHITO MD Unavailable Unavailable EMERTON, A CHITO MD Unavailable Unavailable EMERTON, A CHITO MD Unavailable Unavailable EMERTON, A CHITO MD Unavailable Unavailable EMERTON, A CHITO MD Unavailable Unavailable EMERTON, A CHITO MD Unavailable Unavailable EMERTON, A CHITO MD Unavailable Unavailable EMERTON, A CHITO MD Unavailable Unavailable EMERTON, A CHITO MD Unavailable Unavailable EMERTON, A CHITO MD Unavailable Unavailable EMERTON, A CHITO MD Unavailable Unavailable EMERTON, A CHITO MD Unavailable Unavailable EMERTON, A CHITO MD Unavailable Unavailable EMERTON, A CHITO MD Unavailable Unavailable EMERTON, A CHITO MD Unavailable Unavailable EMERTON, A CHITO MD Unavailable Unavailable EMERTON, A CHITO MD Unavailable Unavailable EMERTON, A CHITO MD Unavailable Unavailable EMERTON, A CHITO MD Unavailable Unavailable EMERTON, A CHITO MD Unavailable Unavailable EMERTON, A CHITO MD Unavailable Unavailable EMERTON, A CHITO MD Unavailable Unavailable EMERTON, A CHITO MD Unavailable Unavailable EMERTON, A CHITO MD Unavailable Unavailable EMERTON, A CHITO MD Unavailable Unavailable EMERTON, A CHITO MD Unavailable Unavailable EMERTON, A CHITO MD Unavailable Unavailable EMERTON, A CHITO MD Unavailable Unavailable EMERTON, A CHITO MD Unavailable Unavailable EMERTON, A CHITO MD Unavailable Unavailable Re-disclosure Warning The records that you are about to access may contain information from federally-assisted alcohol or drug abuse programs. If such information is present, then the following federally mandated warning applies: This information has been disclosed to you from records protected by federal confidentiality rules (42 CFR part 2). The federal rules prohibit you from making any further disclosure of this information unless further disclosure is expressly permitted by the written consent of the person to whom it pertains or as otherwise permitted by 42 CFR part 2. A general authorization for the release of medical or other information is NOT sufficient for this purpose. The Federal rules restrict any use of the information to criminally investigate or prosecute any alcohol or drug abuse patient.The records that you are about to access may contain highly sensitive health information, the redisclosure of which is protected by Article 27-F of the [facility] Public Health law. If you continue you may have access to information: Regarding HIV / AIDS; Provided by facilities licensed or operated by the [facility] Office of Mental Health; or Provided by the [facility] Office for People With Developmental Disabilities. If such information is present, then the following [facility] mandated warning applies: This information has been disclosed to you from confidential records which are protected by state law. State law prohibits you from making any further disclosure of this information without the specific written consent of the person to whom it pertains, or as otherwise permitted by law. Any unauthorized further disclosure in violation of state law may result in a fine or retirement sentence or both. A general authorization for the release of medical or other information is NOT sufficient authorization for further disc losure. Family History Family Member Name Family Member Gender Family Member Status Date o f Status Description Data Source(s) Unknown Unknown Problem MEDENT ([facility] Unknown Female Problem MEDENT ([facility]) Encounters Encounter Providers Location Date Indications Data Source(s ) Inpatient Admitter: Saad Villareal MDReferrer: ALVARO SANDOVAL MD [id number] 2020 10:30:20 AM EDT [facility] Inpatient Attender: Saad Villareal MDAdmitter: Saad moser MD [id number] 2020 10:27:00 AM EDT - 12/22/2020 02:19:00 PM EDT [facility] Patient discharged. Outpatient Attender: Saad Villareal MDReferrer: Saad moser MD MOB-MOB.PAT 12/16/2020 09:56:20 AM EDT - 12/16/2020 11:20:12 AM EDT [facility] Outpatient Referrer: Saad Villareal MD MOB-MOB.PAT 10/2020 09:33:58 AM EDT - 12/16/2020 09:34:04 AM EDT [facility] Unknown [address], [facility] [address] 12/15/2020 12:00:00 AM EDT eCW1 ([facility]) Outpatient Attender: MARLI RED MD 12/08/2020 01:15:0 0 PM EDT [facility] Outpatient Attender: MARLI RED MD ER-CTCMEDON 12/07/2020 0 1:12:00 PM EDT [facility] Outpatient Attender: MARLI RED MD Attender: CHITO BOWDEN MDConsultant: CHITO BOWDEN MD 12/06/2020 10:33:00 AM EDT - 12/06/2020 11:33:00 AM EDT [facility] Outpatient Attender: CARIN Holder/Hugo/Piero/ Og 12/01/2020 01:00:00 PM EDT MEDENT ([facility] Outpatient Referrer: Gracie STANFORD 12/01/2020 11:4 5:34 AM EDT [facility] Outpatient Referrer: Gracie STANFORD 11/30/2020 10:1 2:09 AM EDT [facility] Outpatient Attender: Burt ANDRADEP.SEDA-SJP.SEDA 2020 12:00:00 AM EDT - 11/23/2020 02:28:32 PM EDT [facility] Outpatient Attender: Saad Villareal MDA dmitter: Saad Villareal MDReferrer: Gracie STANFORD [id number] 11/21/2020 11:22:00 AM EDT - 11/21/2020 06:10:00 PM EDT [facility] Patient discharged. Outpatient Attender: Burt RAVIConsultant: CHITO BOWDEN MD 10/27/2020 08:11:00 AM EDT - 10/27/2020 09:11:00 AM EDT [facility] Outpatient Attender: Burt ANDRADEP.SEDA-SJP.SEDA 2020 11:19:51 AM EDT - 10/26/2020 12:54:40 PM EDT [facility] Outpatient Attender: MARLI RED MD 10/12/2020 12:17:0 0 PM T [facility] Outpatient Attender: MARLI RED MD 10/11/2020 01:34:0 0 PM EDT [facility] Outpatient Attender: MARLI RED MD ER-CTCMEDONC 10/10/2020 0 9:42:00 AM EDT [facility] Outpatient Attender: MARLI RED MD ER-CTCMEDONC 10/05/2020 0 9:06:00 AM [facility] Outpatient Attender: Burt Dominique RNPReferrer: Burt Beard NP SJP.[id number].SEDA 09/21/2020 12:50:22 PM EDT - 09/21/2020 01:41:47 PM EDT [facility] Outpatient Attender: MARLI RED MD ER-CTCMEDON 07/27/2020 0 1:44:00 PM EDT [facility] Outpatient Attender: MARLI RED MDConsultant: CHITO VELAZQUEZ MD 07/19/2020 09:18:00 AM EDT - 07/19/2020 10:18:00 AM EDT [facility] Outpatient Attender: Burt Dominique RNPAttender: MICHAEL HOLLAND MD SJP.[id number].SEDA 07/13/2020 10:41:32 AM EDT - 07/13/2020 12:21:34 PM EDT [facility] ([facility]) PDT [address] [address] 06/16/2020 12:00:00 AM EDT [facility] ([facility]) Outpatient Attender: MARLI RED MD 04/28/2020 02:35:0 0 PM [facility] Outpatient Attender: MARLI RED MDConsultant: CHITO VELAZQUEZ MD 04/05/2020 08:34:00 AM [facility] - 04/05/2020 09:34:[address] [facility] Outpatient Attender: MARLI ERD MD -CTCMEDON 03/31/2020 0 8:43:00 AM [facility] Outpatient Attender: MARLI RED MDConsultant: CHITO VELAZQUEZ MD 03/24/2020 10:17:00 AM [facility] - 03/24/2020 11:17:[address] [facility] Outpatient Attender: MARLI RED MD 03/23/2020 09:07:0 0 AM [facility] Admission cancelled. Disregard status an d admitted date. Outpatient Attender: MARLI RED MD ER-WADDCTC 02/19/2020 08:26:0 0 AM [facility] Outpatient Attender: MARLI RED MDConsultant: CHITO VELAZQUEZ MD 02/15/2020 10:32:00 AM EST - 02/15/2020 11:32:[address] [facility] Outpatient Attender: MARLI ERD MDConsultant: CHITO VELAZQUEZ MD 02/11/2020 09:50:00 AM [facility] - 02/11/2020 10:50:[address] [facility] Outpatient Attender: MARLI RED MD 02/10/2020 11:34:0 0 AM [facility] Outpatient Attender: MARLI RED MDConsultant: CHITO VELAZQUEZ MD 02/10/2020 10:06:00 AM [facility] - 02/10/2020 11:06:[address] [facility] Preadmit Attender: MARLI RED MD 01/18/2020 11:36:0 0 AM [facility] Preadmit Attender: MARLI RED MD 01/13/2020 10:53:0 0 AM [facility] Outpatient Attender: MARLI RED MD [facility] 10/13/2019 0 1:08:00 PM [facility] Outpatient Attender: MARLI RED MD [facility] 07/20/2019 0 7:48:00 AM [facility] Outpatient Attender: MARLI RED MD [facility] 01/16/2019 1 0:57:00 AM [facility] Preadmit Attender: MARLI RED MD 01/01/2019 02:19:0 0 PM [facility] Outpatient Attender: MARLI ERD MD [facility] 06/16/2018 1 0:14:00 AM [facility] Immunizations Vaccine Date Status Description Data Source(s) COVID-19 VACCINE Moderna 05/09/2020 12:00:00 AM EST completed [employer] Vaccine Series Complete: YESThis Data wa s Submitted to [facility] Via [employer]. COVID-19 VACCINE, MRNA-1273, LNP-S (MODERNA)/PF 05/09/2020 1 2:00:00 AM EST completed [facility] COVID-19 VACCINE, MRNA-1273, LNP-S (MODERNA)/PF 04/11/2020 1 2:00:00 AM EST completed [facility] Medications Medication Brand Name Start Date Product Form Dose Route Admi nistrative Instructions Pharmacy Instructions Status Indications Reaction Description Data Source(s) Bisacodyl 10 MG Rectal Suppository bisacodyl (DULCOLAX ) suppository 10 mg bisacodyl (DULCOLAX) suppository 10 mg 12/24/2020 09:00:00 AM EDT 10 mg Rectal active 10 mg, Rectal, Daily PRN, constipation, Starting on 12/24/20 at 0900, Post-op
If lactulose not effective, give bisacodyl suppository x 1 per rectum prn starting POD #3.
[facility] Medication administered onsite POLYETHYLENE GLYCOL 3350 142 MG/ML Oral Solution polyethylene glycol (GLYCOLAX) packet 17 g polyethylene glycol (GLYCOLAX) packet 17 g 12/23/2020 07:00:00 AM EDT 17 g Oral active 17 g, Or al, Daily PRN, For constipation, Starting on 12/23/20 at 0700, PACU & Post-op
hold for loose stools
[facility] Medication administered onsite 75 mg 12/23/2020 12:00:00 AM EDT tablet 30 TAKE ONE TABLET BY MOUTH EVERY DAY TAKE ONE TABLET BY MOUTH EVERY DAY SOLD: 12/23/2020 [facility] clopidogrel 75 MG Oral Tablet clopidogrel (PLAVIX) 75 MG tablet clopidogrel (PLAVIX) 75 MG tablet 12/23/2020 12:00:00 AM EDT 75 mg Oral active Take 1 tablet (75 mg total) by mouth daily [facility] Docusate Sodium 100 MG Oral Capsule docusate sodium (C OLACE) capsule 100 mg docusate sodium (COLACE) capsule 100 mg 12/22/2020 09:00:00 AM EDT 100 mg Oral active 100 mg, Oral, 2 times daily, First dose on Aniyah 12/22/20 at 0900, Post-op
Start first POD.
[facility] Medication administered onsite clopidogrel 75 MG Oral Tablet clopidogrel (PLAVIX) tab let 75 mg clopidogrel (PLAVIX) tablet 75 mg 12/22/2020 09:00:00 AM EDT 75 mg Oral active 75 mg, Oral, Daily, First dose on Aniyah 12/22/20 at 0900, Post-op
Start first POD.
[facility] Medication administered onsite Amoxicillin 500 MG Oral Capsule amoxicillin (AMOXIL) 5 00 MG capsule amoxicillin (AMOXIL) 500 MG capsule 12/22/2020 12:00:00 AM EDT 2000 mg Oral active Take 4 capsules (2,000 mg total) by mout h once as needed ue prior to dental procedures [facility] normal saline flush 0.9 % injection 3 mL [id number] 2020 09:00:00 PM EDT 3 mL Intravenous active 3 mL , Intravenous, PROTOCOL, First dose on Sat12/21/20 at 2100, Post-op
flush per protocol, D/C Main IV fluid if appropriate
[facility] Medication administered onsite Cefazolin 1000 MG Injection ceFAZolin (ANCEF) injectio n 1 g ceFAZolin (ANCEF) injection 1 g 2020 08:00:00 PM EDT 1 g Intravenous completed Perioperative Pharmacoprophylaxis 1 g, Intravenous, Ev gena 8 hours (relative), First dose on Sat12/21/20 at 2000, For 2 doses, Post-op
Reconstitute with 10 ml sterile water for injection. Administer IV push over 3 minutes. Use within 1 hour of reconstitution
[facility] Perioperative Pharmacoprophylaxis Medication administered onsite acetaminophen (TYLENOL) 325 MG tablet 650 mg 06:20:43 PM EDT 650 mg Oral active [Order 1 S tart] Name: acetaminophen (TYLENOL) 325 MG tablet 650 mg Signed Summary: 650 mg, Oral, Every 4 hours PRN, mild pain (1-3), for temperature > 101. Call MD/PA. May also give for headache., Starting on Sat12/21/20 at 1820, Post-op
"Maximum dose of acetaminophen is 4,000 mg from all sources in 24 hours."
[Order 1 End] [Order 2 Start] Name: acetaminophen (TYLENOL) suppository 650 mg Signed Summary: 650 mg (1 suppository), Rectal, Every 4 hours PRN, mild pain (1-3), for temperature > 101. Call MD/PA. May also give for headache., Starting on Sat12/21/20 at 1820, Post-op [Order 2 End] [facility] Medication administered onsite 2 ML Metoclopramide 5 MG/ML Prefilled Sy ringe metoclopramide (REGLAN) injection 5 mg metoclopramide (REGLAN) injection 5 mg 2020 06:20:43 PM EDT 5 mg Intravenous active 5 mg, Intrave nous, Every 6 hours PRN, nausea, vomiting, Starting on Sat12/21/20 at 1820, Post-op
Give once if no response to Zofran after 15-30 minutes, then q6h prn N/V.
[facility] Medication administered onsite ondansetron (ZOFRAN) injection 4 mg [id number] 2020 06:20:4 3 PM EDT 4 mg Intravenous active 4 mg, In travenous, Every 6 hours PRN, nausea, vomiting, Starting on Sat12/21/20 at 1820, Post-op
If no response in 15-30 minutes then give metoclopramide 10 mg IV x 1 then q6h prn N/V.
[facility] Medication administered onsite 10 ML Atropine Sulfate 0.1 MG/ML Prefill ed Syringe atropine sulfate injection 0.5 mg atropine sulfate injection 0.5 mg 2020 06:20:42 PM EDT 0.5 mg active 0.5 mg, Intrave nous Push, Every 5 min PRN, other, As needed, for heart rate less than 60 BPM and the patient is hemodynamically unstable and/or SBP is less than 90mmHg, Starting on Sat12/21/20 at 1820, For 6 doses, Post-op
Not to exceed a total of 3 mg or 0.04 mg/kg.
[facility] Medication administered onsite sodium chloride 0.9% (NS) infusion [id number] 2020 05:00:00 P M EDT Intravenous completed at 50 mL/hr, Intravenous, Continuous, Starting on Sat12/21/20 at 1700, For 4 hours, Post-op [facility] Medication administered onsite clopidogrel 300 MG Oral Tablet clopidogrel (PLAVIX) ta blet 300 mg clopidogrel (PLAVIX) tablet 300 mg 2020 04:00:00 PM EDT 300 mg Oral completed 300 mg, Oral, Once, On Sat12/21/20 at 1600, For 1 dos e [facility] Medication administered onsite Metronidazole 0.0075 MG/MG Topical Gel m etroNIDAZOLE (METROGEL) 0.75 % gel 1 application metroNIDAZOLE (METROGEL) 0.75 % gel 1 application 12/09 04:00:00 PM EDT 1 {application} Topical active 1 application, Topical, 2 times daily, First dose on Sat12/21/20 at 1600, Until Discontinued [facility] Medication administered onsite anagrelide 0.5 MG Oral Capsule anagrelide (AGRYLIN) ca psule 0.5 mg anagrelide (AGRYLIN) capsule 0.5 mg 2020 04:00:00 PM EDT 0.5 mg Oral active 0.5 mg, Oral, 3 times daily, First dose on Sat 1 at 1600 [facility] Medication administered onsite ferrous gluconate 324 MG Oral Tablet ferrous gluconate (FERGON) tablet 324 mg ferrous gluconate (FERGON) tablet 324 mg 2020 04:00:00 PM EDT 324 mg Oral active 324 mg, Oral, 2 times daily, First dose on Sat12/21/20 at 1600
separate as far as possible from antacids, take with food
[facility] Medication administered onsite lidocaine (ASPERCREME) 4 % 1 patch [id number] 2020 03:33:22 PM EDT 1 {patch} Transdermal active 1 patch, Transdermal, Administer over 12 Hours, Daily PRN, to back/hips, Starting on Sat12/21/20 at 1533 [facility] Medication administered onsite sodium chloride 0.9% (NS) infusion [id number] 2020 12:00:00 P M EDT Intravenous aborted at 75 mL/hr, Intravenous, Continuous, Starting on Sat12/21/20 at 1200, Pre-op [facility] Medication administered onsite cefazolin (ANCEF) injection 2 g drug or medication 2020 12:00 :00 PM EDT 2 g Intravenous completed 2 g, Int ravenous, Administer over 6 Minutes, bingo caller, On Sat12/21/20 at 1200, For 1 dose, Pre-op
Send to OR. RN may administer IV push or infuse this medication through syringe adapter set ref [id number]. Flush line after use
[facility] Medication administered onsite Minocycline 100 MG Oral Capsule Minocycline HCl 100 MG Minoc ycline HCl 100 MG 12/06/2020 12:00:00 AM EDT 1.0 {capsule} active Minocycline HCl 100 MG eCW1 ([facility]) Metronidazole 7.5 MG/ML Topical Cream metroNIDAZOLE 0.75 % m etroNIDAZOLE 0.75 % 12/06/2020 12:00:00 AM EDT 1.0 {application} act jim metroNIDAZOLE 0.75 % eCW1 ([facility]) normal saline flush 0.9 % injection 3 mL [id number] 11/21/2020 03:00:00 PM EDT 3 mL Intravenous active 3 mL , Intravenous, PROTOCOL, First dose on Sat11/21/20 at 1500, Pre-op
flush per protocol, D/C Main IV fluid if appropriate
[facility] Medication administered onsite iopamidol (ISOVUE-370) 76 % [id number] 11/21/2020 02:56:18 PM EDT active As needed, Starting on Sat11/21/20 at 1456, Intra-Proc edure [facility] Medication administered onsite 1 ML heparin sodium, porcine 1000 UNT/ML Injection hep melina (porcine) injection heparin (porcine) injection 11/21/2020 02:45:10 PM EDT active As needed, Starting on Sat11/21/20 at 1445, Intra-Procedure [facility] Medication administered onsite 4 ML Verapamil hydrochloride 2.5 MG/ML Injection verap gaviota (ISOPTIN) injection verapamil (ISOPTIN) injection 11/21/2020 02:44:49 PM EDT active As needed, Starting on Sat11/21/20 at 1444, Intra-Procedure [facility] Medication administered onsite lidocaine 1 % injection [id number] 11/21/2020 02:30:50 PM EDT active As needed, Starting on Sat at 1430, Intra-Procedure [facility] Medication administered onsite normal saline flush 0.9 % injection 3 mL [id number] 11/21/2020 02:00:00 PM EDT 3 mL Intravenous active 3 mL , Intravenous, Every 8 hours (scheduled), First dose on Sat11/21/20 at 1400, Pre-op
Rapid push positive pressure flushing shall be performed with a 10 cc normal saline syringe to check the PATENCY of a PIV site prior to any infusion therapy initiation unless resistance is met.
[facility] Medication administered onsite normal saline flush 0.9 % injection 3 mL [id number] 11/21/2020 02:00:00 PM EDT 3 mL Intravenous active 3 mL , Intravenous, Every 8 hours (scheduled), First dose on Sat11/21/20 at 1400, Pre-op
Rapid push positive pressure flushing shall be performed with a 10 cc normal saline syringe to check the PATENCY of a PIV site prior to any infusion therapy initiation unless resistance is met.
[facility] Medication administered onsite Diphenhydramine Hydrochloride 50 MG Oral Capsule diphenhydrAMINE (BENADRYL) capsule 50 mg diphenhydrAMINE (BENADRYL) capsule 50 mg 11/21/2020 01 :00:00 PM EDT 50 mg Oral completed 50 mg, Oral, bingo caller, On Sat11/21/20 at 1300, For 1 dose, Pre-op [facility] Medication administered onsite sodium chloride 0.9% (NS) infusion [id number] 11/21/2020 01:00:00 PM EDT 100 mL/h Intravenous active at 100 m L/hr, 100 mL/hr, Intravenous, Continuous, Starting on Sat11/21/20 at 1300, Pre-op
Start two hours prior to scheduled start time
[facility] Medication administered onsite Aspirin 325 MG Oral Tablet aspirin tablet 325 mg aspirin tab let 325 mg 11/21/2020 01:00:00 PM EDT 325 mg Oral completed 325 mg, Oral, Once, On Sat11/21/20 at 1300, For 1 dose, Pre-op
Give if scheduled for cardiac or peripheral angioplasty/stent or carotid stenting. Administer AM dose prior to procedure if NOT taken at home. Max of 1 dose per day.
[facility] Medication administered onsite Furosemide 20 MG Oral Tablet furosemide (LASIX) 20 MG tablet furosemide (LASIX) 20 MG tablet 10/03/2020 12:00:00 AM EDT 20 mg Oral activ e Take 20 mg by mouth daily [facility] 24 HR metoprolol succinate 50 MG Extende d Release Oral Tablet metoprolol succinate (TOPROL-XL) 50 MG 24 hr tablet metoprolol succinate (TOPROL-XL) 50 MG 24 hr tablet 10/05/2019 12:00:00 AM EDT 1 {tbl} Oral abor constantino Take 1 tablet by mouth 2 (two) times a day [facility] Isosorbide Dinitrate 20 MG Oral Tablet i sosorbide dinitrate (ISORDIL) 20 MG tablet isosorbide dinitrate (ISORDIL) 20 MG tablet 10/02/2019 12:00:00 AM EDT 20 mg Oral aborted Take 20 mg by mouth 2 (t wo) times a day [facility] Cyclosporine 0.5 MG/ML Ophthalmic Suspen monique [Restasis] RESTASIS 0.05 % ophthalmic emulsion RESTASIS 0.05 % ophthalmic emulsion 07/07/2019 12:00:[address] [facility] Ascorbic Acid (JB-C PO) drug or medication Oral aborted Take by mouth daily [facility] clopidogrel 75 MG Oral Tablet clopidogrel (PLAVIX) 75 MG tablet clopidogrel (PLAVIX) 75 MG tablet 75 mg Oral aborted Take 75 mg by mouth daily Patient states she took 2 pills last night [facility] Hydrochlorothiazide 25 MG Oral Tablet hy drochlorothiazide (HYDRODIURIL) 25 MG tablet hydrochlorothiazide (HYDRODIURIL) 25 MG tablet 25 mg O ral aborted Take 25 mg by mouth daily Take 1/2 tablet by mouth daily, or 1 tablet every other day [facility] VITAMIN D, CHOLECALCIFEROL, PO drug or medication Oral aborted Take by mouth daily [facility] CALCIUM PO drug or medication Oral aborted Take by mouth daily [facility] Multiple Vitamins-Minerals (ZINC PO) drug or medication Oral aborted Take by mouth daily [facility] Insurance Providers Payer name Policy type / Coverage type Policy ID Covered alliance party ID Covered alliance party's relationship to oquendo Policy Oquendo Plan Information Medicare Part B [facility] [id number] MEDICARE [id number] Shayy [id number] U17 MEDICARE [id number] MEDICARE [id number] SP [id number] A MEDICARE A [id number] Self [id number] MEDICARE [id number] SP [id number] [id number] [facility]co [id number] UMR U [id number] Self [id number] UMR U [id number] Self [id number] UMR [id number] UMR [id number] Shayy [id number] INSURANCE COVID-19 COVID Shayy C OVID INSURANCE COVID-19 COVI Shayy C NARINDER INSURANCE COVID-19 [id number] COVI 2 [id number] [employer] MEDICAL CLAIMS [id number] SP [id number] [facility] PART B C [id number] S [id number] [facility] [id number] S [id number] A MEDICARE [id number] S [id number] A Umr/Uhc/[employer] Medigap Part B [id number] Self [id number] Medicare Natl Gov't Servi Medicare Primary [id number] Self [id number] [employer] -O/P [id number] 18 [id number] UMR O [id number] S [id number] MEDICARE C [id number] S [id number] A UMR O [id number] S [id number] [employer] PPO O [id number] S [id number] [employer] [id number] 0 [id number] IBEW LOCAL 1249 [id number] S [id number] MCRB [id number] S [id number] MEDICARE -O/P [id number] 18 [id number] [employer] [id number] Self Medicare [place] [id number] Self [employer] O [id number] S [id number] MEDICARE PART B-O/P UNAVAILABLE UNAVAILABLE UMR [facility] [id number] SP [id number] UMR -O/P [id number] 18 [id number] MEDICARE PART A -O/P [id number] 18 [id number] UMR [id number] S [id number] MEDICARE [id number] S [id number] MCRB [id number] S [id number] UMR [id number] S [id number] MEDICARE PART A -O/P [id number] 18 [id number] IBEW LOCAL 1249 INSURANCE FUND -O/P [id number] 18 [id number] [employer] [id number] S [id number] [facility] [id number] S [id number] R [facility] [id number] SP [id number] UMR O [id number] S [id number] MEDICARE C [id number] S [id number] Problems, Conditions, and Diagnoses Code Display Name Description Problem Type Effective Dates Data Source(s) I35.0 Nonrheumatic aortic (valve) stenosis Nonrheumati c aortic (valve) stenosis Diagnosis 12/16/2020 09:56:20 AM EDT [facility] U07.1 COVID-19 COVID-19 Diagnosis 12/16/2020 09:33:58 AM ED T [facility] D64.9 Anemia, unspecified ANEMIA, UNSPECIFIED Diagnosis 0 12/07/2020 01:12:00 PM EDT [facility] D649 Anemia, unspecified Anemia, unspecified Diagnosis 0 12/06/2020 10:33:00 AM EDT [facility] R791 Abnormal coagulation profile Abnormal coagulation prof ile Diagnosis 12/06/2020 10:33:00 AM EDT [facility] [id number] Lymphocytosis (symptomatic) Lymphocytosis (symptomatic ) Diagnosis 12/06/2020 10:33:00 AM EDT [facility] [id number] Decreased white blood cell count, unspec ified Decreased white blood cell count, unspecified Diagnosis 12/06/2020 10:33:00 AM EDT [facility] M19.90 Unspecified osteoarthritis, unspecified site Unspecified osteoarthritis, unspecified Diagnosis 11/23/2020 01:26:51 PM EDT [facility] K21.9 Gastro-esophageal reflux disease without esophagitis Gastro-esophageal reflux disease without Diagnosis 11/23/2020 01:26:51 PM EDT [facility] 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 Chronic embolism and thrombosis of right Diagnosis 11/23/2020 01:26:51 PM EDT [facility] D69.6 Thrombocytopenia, unspecified Thrombocytopenia, unspec ified Diagnosis 11/21/2020 11:22:00 AM EDT [facility] I82.431 Acute embolism and thrombosis of right p opliteal vein Acute embolism and thrombosis of right p Diagnosis 11/21/2020 11:22:00 AM EDT [facility] I10 Essential (primary) hypertension Essential (primary) h ypertension Diagnosis 11/21/2020 11:22:00 AM EDT [facility] R06.02 Shortness of breath Shortness of breath Diagnosis 0 11/21/2020 11:22:00 AM EDT [facility] E78.5 Hyperlipidemia, unspecified Hyperlipidemia, unspecifie d Diagnosis 11/21/2020 11:22:00 AM EDT [facility] E785 Hyperlipidemia, unspecified Hyperlipidemia, unspecifie d Diagnosis 10/27/2020 08:11:00 AM EDT [facility] I10 Essential (primary) hypertension Essential (primary) h ypertension Diagnosis [facility] of breath Shortness of breath Diagnosis 0 10/27[facility] I350 Nonrheumatic aortic (valve) stenosis Nonrheumati c aortic (valve) stenosis Diagnosis 10/27/2020 [facility] 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), and cerebral infarction without residual deficits PRSNL HX OF TIA (TIA), AND CEREB INFRC W /O RESID D Diagnosis 10/12/2020 12:17:00 PM EDT [facility] D72.819 Decreased white blood cell count, unspec ified DECREASED WHITE BLOOD CELL COUNT, UNSPECIFIED Diagnosis 10/12/2020 12:17:00 PM EDT [facility] I10 Essential (primary) hypertension ESSENTIAL (PRIMARY) H YPERTENSION Diagnosis 10/12/2020 12:17:00 PM [facility] D47.3 Essential (hemorrhagic) thrombocythemia ESSENTIAL (HEMORRHAGIC) THROMBOCYTHEMIA Diagnosis 10/12/2020 12:17:00 PM T [facility] R06.00 Dyspnea, unspecified DYSPNEA, UNSPECIFIED Diagnosis 10/12/2020 12:17:00 PM [facility] R79.1 Abnormal coagulation profile ABNORMAL COAGULATION PROF ILE Diagnosis 10/10/2020 09:42:00 AM [facility] K08.89 OTHER SPECIFIED DISORDERS OF TEETH AND S UPPORTING OTHER SPECIFIED DISORDERS OF TEETH AND SUPPORTING Diagnosis 07/27/2020 01:44:00 PM [facility] D70.9 Neutropenia, unspecified NEUTROPENIA, UNSPECIFIED Diag nosis 03/31/2020 08:43:00 AM [facility] 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 Essential (hemorrhagic) thrombocythemia Diagnosis 03/24/2020 10:17:[address] 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 (transcatheter aortic valve replacement) [id number] 2020 12:00:00 AM EDT [facility] I35.0 Nonrheumatic aortic (valve) stenosis Nonrheumati c aortic (valve) stenosis [id number] 2020 12:00:00 AM EDT [facility] L71.0 [id number] Perioral dermatitis Problem 12/06/2020 12:00 :00 AM EDT eCW1 ([facility]) [id number] Essential hypertension Essential hypertension Problem 12/01/2020 12:00:00 AM EDT [facility] ([facility] ) E78.5 Hyperlipidemia Hyperlipidemia [id number] 11/08/2020 12:00: 00 AM EDT [facility] D69.6 Thrombocytopenia Thrombocytopenia [id number] 07/13/2020 12 :00:00 AM EDT [facility] R06.02 Shortness of breath on exertion Shortness of breath on exertion [id number] 07/13/2020 12:00:00 AM EDT [facility] Surgeries/Procedures Procedure Description Date Indications Data Source(s) ECHO TTHRC R-T 2D W/WOM-MODE COMPL SPEC&COLR DOP <td>E CHOCARDIOGRAM TRANSTHORACIC</td><td>Pending Discharge</td><td>12/22/2020 9:02 AM EDT</td><td></td><td> </td> 12/22/2020 09:02:36 AM EDT [facility] XR CHEST PORTABLE <td>XR CHEST PORTABLE</td><t d>Routine</td><td>12/22/2020 7:57 AM EDT</td><td></td><td> </td> 12/22/2020 07:57:00 AM EDT [facility] BLOOD COUNT COMPLETE AUTOMATED <td>CBC</td><td>Timed</ td><td>12/22/2020 4:29 AM EDT</td><td></td><td> </td> 12/22/2020 04:29:00 AM EDT [facility] BASIC METABOLIC PANEL CALCIUM TOTAL <td>BASIC METABOLI C PANEL</td><td>Timed</td><td>12/22/2020 4:29 AM EDT</td><td></td><td> </td> 12/22/2020 04:29:00 AM EDT [facility] PROTHROMBIN TIME <td>PROTIME-INR</td><td>STAT </td><td>2020 4:26 PM EDT</td><td></td><td> </td> 2020 04:26:00 PM EDT [facility] BLOOD COUNT COMPLETE AUTOMATED <td>CBC</td><td>STAT</t d><td>2020 4:26 PM EDT</td><td></td><td> </td> 2020 04:26:00 PM EDT [facility] MAGNESIUM <td>MAGNESIUM</td><td>STAT</ td><td>2020 4:26 PM EDT</td><td></td><td> </td> 2020 04:26:00 PM EDT [facility] BASIC METABOLIC PANEL CALCIUM TOTAL <td>BASIC METABOLI C PANEL</td><td>STAT</td><td>2020 4:26 PM EDT</td><td></td><td> </td> 2020 04:26:00 PM EDT [facility] XR CHEST PORTABLE <td>XR CHEST PORTABLE</td><t d>STAT</td><td>2020 4:13 PM EDT</td><td></td><td> </td> 2020 04:13:18 PM EDT [facility] ECG ROUTINE ECG W/LEAST 12 LDS TRCG ONLY W/O I&R <td>E CG 12- LEAD</td><td>Routine</td><td>2020 3:49 PM EDT</td><td></td><td></td> 2020 03:49:16 PM EDT [facility] TRANSCATHETER AORTIC VALVE IMPLANT FEMORAL <td>TRANSCA THETER AORTIC VALVE IMPLANT FEMORAL</td><td>Routine</td><td>2020 3:28 PM EDT</td><td> Nonrheumatic aortic (valve) stenosis</td><td></td> 2020 03:28:00 PM EDT Nonrheumatic aortic (valve) stenosis [facility] Nonrheumatic aortic (valve) stenosis POC ARTERIAL BLOOD GAS W LYTES <td>POC ARTERIAL BLOOD GAS W LYTES</td><td>Routine</td><td>2020 3:20 PM EDT</td><td></td><td> </td> 2020 03:20:00 PM EDT [facility] POC ACT <td>POC ACT</td><td>Routine< /td><td>2020 3:19 PM EDT</td><td></td><td> </td> 2020 03:19:00 PM EDT [facility] POC ACT <td>POC ACT</td><td>Routine< /td><td>2020 2:43 PM EDT</td><td></td><td> </td> 2020 02:43:00 PM EDT [facility] POC ARTERIAL BLOOD GAS W LYTES <td>POC ARTERIAL BLOOD GAS W LYTES</td><td>Routine</td><td>2020 2:43 PM EDT</td><td></td><td> </td> 2020 02:43:00 PM EDT [facility] GLUC BLD GLUC MNTR DEV CLEARED FDA SPEC HOME USE <td>P OCT GLUCOSE</td><td>Routine</td><td>2020 11:10 AM EDT</td><td></td><td> </td> 2020 11:10:00 AM EDT [facility] ROOM TEMP AB SCREEN <td>ROOM TEMP AB SCREEN</td> <td>STAT</td><td>2020 11:05 AM EDT</td><td></td><td> </td> 2020 11:05:00 AM EDT [facility] BLOOD TYPING ABO <td>TYPE AND SCREEN</td><td> STAT</td><td>2020 10:49 AM EDT</td><td></td><td> </td> 2020 10:49:00 AM EDT [facility] ECG TRANSESOPHAG R-T 2D W/PRB IMG ACQUISJ I&R <td>ECHO CARDIOGRAM TRANSESOPHAGEAL</td><td>Routine</td><td>2020 10:30 AM EDT</td><td></td><td> </td> 2020 10:30:20 AM EDT [facility] ECG ROUTINE ECG W/LEAST 12 LDS TRCG ONLY W/O I&R <td>E CG 12- LEAD</td><td>Routine</td><td>12/16/2020 11:19 AM EDT</td><td> Nonrheumatic aortic (valve) stenosis</td><td></td> 12/16/2020 11:19:12 AM EDT Nonrheumatic aortic (valve) stenosis [facility] Nonrheumatic aortic (valve) stenosis URNLS DIP STICK/TABLET RGNT AUTO W/O MICROSCOPY <td>UR INALYSIS W/O MICRO</td><td>Routine</td><td>12/16/2020 11:15 AM EDT</td><td> Nonrheumatic aortic (valve) stenosis</td><td> </td> 12/16/2020 11:15:00 AM EDT Nonrheumatic aortic (valve) stenosis [facility] Nonrheumatic aortic (valve) stenosis NT PRO BNP <td>NT PRO BNP</td><td>Routi ne</td><td>12/16/2020 10:45 AM EDT</td><td> Nonrheumatic aortic (valve) stenosis</td><td> </td> 12/16/2020 10:45:00 AM EDT Nonrheumatic aortic (valve) stenosis [facility] Nonrheumatic aortic (valve) stenosis THROMBOPLASTIN TIME PARTIAL PLASMA/WHOLE BLOOD <td>APTT</td><td>Routine</td><td>12/16/2020 10:45 AM EDT</td><td> Nonrheumatic aortic (valve) stenosis</td><td> </td> 12/16/2020 10:45:00 AM EDT Nonrheumatic aortic (valve) stenosis [facility] Nonrheumatic aortic (valve) stenosis PROTHROMBIN TIME <td>PROTIME-INR</td><td>Rout ine</td><td>12/16/2020 10:45 AM EDT</td><td> Nonrheumatic aortic (valve) stenosis</td><td> </td> 12/16/2020 10:45:00 AM EDT Nonrheumatic aortic (valve) stenosis [facility] Nonrheumatic aortic (valve) stenosis BLOOD COUNT COMPLETE AUTO&AUTO DIFRNTL WBC COUNT <td>C BC AND DIFFERENTIAL</td><td>Routine</td><td>12/16/2020 10:45 AM EDT</td><td> Nonrheumatic aortic (valve) stenosis</td><td> </td> 12/16/2020 10:45:00 AM EDT Nonrheumatic aortic (valve) stenosis [facility] Nonrheumatic aortic (valve) stenosis HEMOGLOBIN GLYCOSYLATED A1C <td>HEMOGLOBIN A1C</td><td>Routine</td><td>12/16/2020 10:45 AM EDT</td><td> Nonrheumatic aortic (valve) stenosis</td><td> </td> 12/16/2020 10:45:00 AM EDT Nonrheumatic aortic (valve) stenosis [facility] Nonrheumatic aortic (valve) stenosis COMPREHENSIVE METABOLIC PANEL <td>COMPREHENSIVE METABO LIC PANEL</td><td>Routine</td><td>12/16/2020 10:45 AM EDT</td><td> Nonrheumatic aortic (valve) stenosis</td><td> </td> 12/16/2020 10:45:00 AM EDT Nonrheumatic aortic (valve) stenosis [facility] Nonrheumatic aortic (valve) stenosis OFFICE OUTPATIENT NEW 45 MINUTES 12/01/2020 12:00:00 A M EDT [facility] ([facility], ) DUPLEX SCAN EXTRACRANIAL ART COMPL BI STUDY <td>US CAR OTID BILATERAL</td><td>Pending Discharge</td><td>11/21/2020 4:24 PM EDT</td><td></td><td> </td> 11/21/2020 04:24:20 PM EDT [facility] RADEX SPINE ENTIRE SURVEY STD ANTEROPOST&LAT <td>CARDI AC CATHETERIZATION</td><td>Routine</td><td>11/21/2020 2:55 PM EDT</td><td> Nonrheumatic aortic valve stenosis Shortness of breath on exertion Essential hypertension Hyperlipidemia, unspecified hyperlipidemia type Acute deep vein thrombosis (DVT) of popliteal vein of right lower extremity Thrombocytopenia</td><td> </td> 11/21/2020 02:55:17 PM EDT ThrombocytopeniaAcute deep vein thrombos is (DVT) of popliteal vein of right lower extremityHyperlipidemia, unspecified hyperlipidemia typeEssential hypertensionShortness of breath on exertionNonrheumatic aortic valve stenosis [facility] Thrombocytopenia Acute deep vein thrombosis (DVT) of popl iteal vein of right lower extremity Hyperlipidemia, unspecified hyperlipidem ia type Essential hypertension Shortness of breath on exertion Nonrheumatic aortic valve stenosis ECG ROUTINE ECG W/LEAST 12 LDS TRCG ONLY W/O I&R <td>E CG 12- LEAD</td><td>Routine</td><td>11/21/2020 11:52 AM EDT</td><td></td><td></td> 11/21/2020 11:52:03 AM EDT [facility] ECG ROUTINE ECG W/LEAST 12 LDS W/I&R <td>POCT AMB EKG</td><td>Routine</td><td>07/13/2020 5:45 PM EDT</td><td> Nonrheumatic aortic valve stenosis Essential hypertension</td><td> </td> 07/13/2020 05:45:00 PM EDT Essential hypertensionNonrheumatic aortic valve stenos is [facility] Essential hypertension Nonrheumatic aortic valve stenosis BLOOD COUNT COMPLETE AUTO&AUTO DIFRNTL WBC COUNT <td>C BC AND DIFFERENTIAL</td><td>Routine</td><td>03/24/2020</td><td></td><td> </td> 03/24/2020 12:00:00 AM EST [facility] HEPATIC FUNCTION PANEL <td>HEPATIC FUNCTION PANEL</td><td>Routine</td><td>03/24/2020</td><td></td><td> </td> 03/24/2020 12:00:00 AM EST [facility] BASIC METABOLIC PANEL CALCIUM TOTAL <td>BASIC METABOLI C PANEL</td><td>Routine</td><td>03/24/2020</td><td></td><td> </td> 03/24/2020 12:00:00 AM EST [facility] Results ID Date Data Source [id number] 12/22/2020 10:50:[address] [facility]FORMATIONPatient MRN Name Date of Age Gend*PT [id number] Elizabeth Lawrence 1935 85 years F IPPT Location Admission Date/Time Visit ID Attending [id number] 12/21/20 1027 --- Saad Villareal MD([id number]) EPI ID CSN Admitting Provider [id number] Saad Villareal MD([id number])DISCHARGE SUMMARYAdmission Date: 2020ischarge date: 12/22/20PRINCIPAL DIAGNOSIS: Severe aortic stenosis post successful TAVRCURRENT [id number] woman with severe aortic stenosis and shortness of breath who hasrecurrent anemia with essential thrombocytosis requiring blood transfusions andis scheduled for colonoscopy. She was found to have severe aortic stenosis andno coronary artery disease and was referred for TAVR.HOSPITAL COURSETAVR was done yesterday with a 23 mm Mindy 3 valve. Her hematocrit and whitecount dropped seizure. Platelet count remained stable. Her groin access siteswere unremarkable. She had no bradycardia arrhythmia on telemetry. Anechocardiogram showed normal systolic function and a mean aortic valve gradientof 10 with minimal perivalvular leak. There was moderate mitral insufficiencyand mild mitral stenosis. She will be discharged to follow with Dr. Holland. Rubinll be given only Plavix for the next few months because of the need for bloodtransfusion recently. If there is further drop in her hematocrit Plavix will bestopped too. She needs SBE prophylaxis which was prescribed prior to dentalprocedure. This also is indicated prior to the upcoming colonoscopy.TODAY'S PHYSICAL EXAM:BP 177/77 | Pulse 88 | Temp 98.7 F (Oral) | Resp 16 | Ht 1.651 m (5' 5") |Wt 60.6 kg (133 lb 8 oz) | SpO2 98% | BMI 22.22 kg/m Lungs are clear to auscultation. Heart sounds are normal S1 and S2 with 2 outof 6 systolic ejection murmur.SIGNIFICANT DIAGNOSTIC DATA:Results from last 7 daysLab Units WBC 10*3/uL 2.1*HEMOGLOBIN g/dL 8.4*HEMATOCRIT % 25.2*PLATELETS 10*3/uL 152Results from last 7 daysLab Units SODIUM mmol/L 144POTASSIUM mmol/L 4.4CHLORIDE mmol/L 113*CO2 mmol/L 26BUN mg/dL 20CREATININE mg/dL 0.95GLUCOSE mg/dL 123*CALCIUM mg/dL 7.5*DISCHARGE MEDICATION LISTYour medication listSTART taking these medications Instructions Last Dose Given Morning Afternoon Evening Bedtime As Neededamoxicillin 500 MG capsule Commonly known as: AMOXIL Take 4 capsules (2,000 mg total) by mouth once as needed ue prior to dentalproceduresclopidogrel 75 MG tabletCommonly known as: PLAVIXStart taking on: December 23, 2020 Take 1 tablet (75 mg total) by mouth dailyCONTINUE taking these medications Instructions Last Dose Given Morning Afternoon Evening Bedtime As Neededanagrelide 0.5 MG capsuleCommonly known as: AGRYLIN Take 0.5 mg by mouth 3 (three) times a dayCALCIUM-VITAMIN D PO Take 1 tablet by mouth dailyferrous gluconate 324 MG tabletCommonly known as: FERGON Take 324 mg by mouth 2 (two) times a dayfurosemide 20 MG tabletCommonly known as: LASIX Take 20 mg by mouth dailylidocaine 5 %Commonly known as: LIDODERM Place 1 patch on the skin daily as needed (to back/hips) Remove & Discard patchwithin 12 hours or as directed by MDmetroNIDAZOLE 0.75 % creamCommonly known as: METROCREAM Apply topically 2 (two) times a day On faceSTOP taking these medicationsisosorbide dinitrate 20 MG tabletCommonly known as: ISORDILWhere to Get Your MedicationsThese medications were sent to [id number] AT & [address] [address] amoxicillin 500 MG capsule clopidogrel 75 MG tabletSignature: Saad Villareal, MDDate: December 22, 2020Time: 10:45 [facility]: Dr. Maldonado document or parts of this document, were dic tated using Edúkame software. A reasonable attempt at proofreading has been made tominimize errors. Please call with any questions or corrections. Name Value Range Interpretation Code Description Data Berkley rce(s) Supporting Document(s) ID Date Data Source [id number] 12/22/2020 10:11:20 AM EDT [facility] Name Value Range Interpretation Code Description Data Berkley rce(s) Supporting Document(s) &PDF [facility] JQASGi3sPtLRJiYu15/MWLbxSYNzg2XlHNjmPWd1NTctCLJmU9ByaNuxVQ6UR64UGIoTVJFYAK8UDRXx 0b3 [file] t1uLXutCI1u/TD4vzmJtUeAJwob+daFQhTDNeDYyRqPFeC9Jk8+[place]+nIzb4cavmlMoRDOumSIeIYJuN [file] ICAgICAgICAgICAgICAgICAgICAgICAgICAgICAgIC AgICAgICAgICAgICAgICAgICAgICAgICAgICAgICAgICAgICAgICAgICAgICAgICAgICAgICAgICAgIC ANCiAgICAgICAgICAgICAgICAgICAgICAgICAgICAgICAgICAgICAgICAgICAgICAgICAgICAgICAgIC AgICAgICAgICAgICAgICAgICAgICAgICAgICAgICAg ICAgICAgICAgICANCiAgICAgICAgICAgICAgICAgICAgICAgICAgICAgICAgICAgICAgICAgICAgICAg ICAgICAgICAgICAgICAgICAgICAgICAgICAgICAgICAgICAgICAgICAgICAgICAgICAgICANCiAgICAg ICAgICAgICAgICAgICAgICAgICAgICAgICAgICAgIC AgICAgICAgICAgICAgICAgICAgICAgICAgICAgICAgICAgICAgICAgICAgICAgICAgICAgICAgICAgIC AgICANCiAgICAgICAgICAgICAgICAgICAgICAgICAgICAgICAgICAgICAgICAgICAgICAgICAgICAgIC AgICAgICAgICAgICAgICAgICAgICAgICAgICAgICAg ICAgICAgICAgICAgICANCiAgICAgICAgICAgICAgICAgICAgICAgICAgICAgICAgICAgICAgICAgICAg ICAgICAgICAgICAgICAgICAgICAgICAgICAgICAgICAgICAgICAgICAgICAgICAgICAgICAgICANCiAg ICAgICAgICAgICAgICAgICAgICAgICAgICAgICAgIC AgICAgICAgICAgICAgICAgICAgICAgICAgICAgICAgICAgICAgICAgICAgICAgICAgICAgICAgICAgIC AgICAgICANCiAgICAgICAgICAgICAgICAgICAgICAgICAgICAgICAgICAgICAgICAgICAgICAgICAgIC AgICAgICAgICAgICAgICAgICAgICAgICAgICAgICAg ICAgICAgICAgICAgICAgICANCiAgICAgICAgICAgICAgICAgICAgICAgICAgICAgICAgICAgICAgICAg ICAgICAgICAgICAgICAgICAgICAgICAgICAgICAgICAgICAgICAgICAgICAgICAgICAgICAgICAgICAN CiAgICAgICAgICAgICAgICAgICAgICAgICAgICAgIC AgICAgICAgICAgICAgICAgICAgICAgICAgICAgICAgICAgICAgICAgICAgICAgICAgICAgICAgICAgIC AgICAgICAgICANCjw/sMUaP0lcvGZsrvP3M5kxPn9NUr2JKY3bt1XcVXYtPGoucsIsLsxPVnVzJTGpCx aVNts4XJdlKL5YcXKmI9WoL8QiHZaeMA2RAOFnFHOu gAJyXWEeRSEvRwD7CAJjOXzrAX7GpQEnGRvfBGUlWGDbVfRoHVEmPOApGLEoBKIlBGERTO8RGaPwP0Gf lF99OMLMPo3+BLytsoJzBpeWNwY1DQFdo5EeCAv5HJ0JMPHoLTcaFU1RECEniP7hWHamDO2AWvQrLoEr VUQWBxBoC97ieNMyQFz2M6KhLrZdGODfYsmqUMMdUX wvTmFtZXMgWyBdDQogID4+ID4+CXcpSU0BIEnhbeIyROFsZb0QMCXtIBY4LMGdiZFuYaNjRQKGNMwhAF 8KqBKgEOE0wK8pCQsjKVJkEKBzE1wLWvYcuXzqJA50dRbrimBnzHJkSLo+Gp9HAB6sc6DbKOx7euDrNN tdJFB4KNggBKLwPIKqECUuCGK2RVB0MDEDUiFlBDRy GJKhTAqdQWZvSPVdal7BDFIvHFChMcL9ZxFxZKCcTNHeBJbwIQWyWJL4GjXgYNEdDBKoEW0EYvRxYXMp ZJYoDTUdMSKrWNMdar3DGFIpJALrEiMiXJCgBACrLRXhFZoeWBDbXZXlHzQkPYHbLXGtPV4FExPvUVSn VCDaMOtgMJPcKCPhcg8NVZXnUNCtKQP6HnTyHDQvAY SyTKbrJLEkJRG8IVIfNVCdDEFbQZ3VZaMsSHDxPZe1WhFnSTLyLENkpa9OMZGyMTXrSCf1CBMwDMXiYC HoYGrqRBHyMND0QOAkFUVyCNZuPG4MEdPpVSGuMZr5UgJpYMYbEFOqni7HTFKjBTUeNVWyZFOdMJYcRR TjYKzrYVLhOCXtCsHzTVLaDWKvVA3ESbJeDZRzCIAy RtYnBKSpHBHfgq7LNVMgMLHkXFW8PeFjVJGpWANsPWzaMXBkDPDvUdEbLQArQSUnHM3JDyBiGHSbADH9 SGsbRLHrICGner8LVAWiYCMtTswxJyBtIEQpSMIxDPyjHUXnHHLiXEhzKETxSEYwPJ0TKaAgJXHdIPaa KJFoUKGcRYVwfy5HPVNnTBToSqMySIUgSKZkOEHoGP ndOBVjUGYrUQZqDYFsNOAuZA9QVcFrTKBeVnStEGmwXOYbXSOhlr0FfEIcsWauvv2IWHhIDq8KvZcdWG M0UNxlSp8tzSOdBWFsRWQZDl0JgzQeETThJASDTNwdIUGxKUqyRtL6VyR9MWZsNgTmUKAjA9S5UCW2Qx ezSmOvLrI3HrY8RxTtVChpZOelQcX1SjAaVPM4Dvjd MpW5LbDsLIHeRAk+UI9fDLx+Ac7Vg1CvekV5ijAbJRokZPYoJf2OMTVSZ1MNZo== ID Date Data Source [id number] 12/22/2020 08:50:59 AM EDT [address] [address]Xmhrgnq Name: ELIZABETH LAWRENCEDOB: 1935Sex: FOrdering Provider: OPHELIA GARCÍAAuthorizing Prov: OPHELIA GARCÍAReferring Provider: Procedure Performed: / XR CHEST PORTABLEExam Date: 12/22/2020 07:57MRN: [id number] Number: [id number] Class: InpatientAccount #: [id number] for Exam: mild CHF post TAVRTechnique: AP portable view obtained.Comparison: 2020Findings: TAVR in place. Single lead pacer unchanged position. Improved aeration both lungs compatible with resolved edema. Blunting both costophrenic angles likely tiny effusions.IMPRESSION: Resolved edema.Report electronically signed by: MARYSOL CHRISTIAN On 12/22/2020 8:50 AMWorkstation ID: [id number] Name Value Range Interpretation Code Description Data Berkley rce(s) Supporting Document(s) ID Date Data Source [id number] 12/22/2020 06:19:20 AM EDT [facility] Name Value Range Interpretation Code Description Data Berkely rce(s) Supporting Document(s) SODIUM 144 mmol/L (136-145) [facility] POTASSIUM 4.4 mmol/L (3.6-5.2) [facility] CHLORIDE 113 mmol/L (100-108) H [facility] CO2 26 mmol/L (22-31) [facility] ANION GAP 5 mmol/L (7-16) L [facility] UREA NITROGEN 20 mg/dL (7-24) [facility] CREATININE 0.95 mg/dL (0.60-1.00) [facility] BUN/CREAT RATIO 21.1 RATIO (10.0-20.0) H [facility] GLUCOSE 123 mg/dL (70-99) H [facility] CALCIUM 7.5 mg/dL (8.4-10.2) L [facility] GFR 56 ml/min/1.73m2 (>59) L [facility] GFR ( AMER) >60 ml/min/1.73m2 (>59) [facility] GFR INTERPRETATION [facility] --NORMAL KIDNEY FUNCTION OR MILD DISEASE - GFR >OR= 60CHRONIC KIDNEY DISEASE - GFR 15 - 59RENAL FAILURE - GFR <15 Est. GFR calculation based on the MDRDstudy equation, which assumes a steadystate for creatinine. Est. GFR should notbe used for medication dosing. ID Date Data Source [id number] 12/22/2020 05:50:49 AM EDT [facility] Name Value Range Interpretation Code Description Data Berkley rce(s) Supporting Document(s) WBC 2.1 10*3/uL (4.1-11.0) L [facility] RBC 2.47 10*6/uL (4.00-5.40) L [facility] HGB 8.4 g/dL (12.0-16.0) L [facility] HCT 25.2 % (36.0-47.0) L [facility] MCV 102.3 fL (80.0-95.0) H [facility] MCH 34.2 pg (27.0-32.0) H [facility] MCHC 33.4 g/dL (32.0-36.0) [facility] RDW 22.8 % (10.5-14.5) H [facility] PLT 152 10*3/uL (150-450) [facility] MPV 9.7 fL (7.1-10.7) [facility] ID Date Data Source [id number] 2020 04:32:25 PM EDT [facility] Name Value Range Interpretation Code Description Data Berkley rce(s) Supporting Document(s) EKG [facility] SBHHAo7bHxVDAlChy2VpGdDnBMYzMP6xgvz3N3F5nOUxF4UxgXPss4jlN0ZfC3EmIBAzHTYTQI5AgJFs jb2 [file] R4orl3SRIUPEocW+WPxHQiP0iUlbK2H+DOwEHr2oTsMUxpPLp05Q8nsp6USxoHASVXh3u7LZYBm7+sales architect [file] SCCd7Lu200VIBhBJKPNad+ApcrxCYteBnbRQZAMMY4VVyLRGILF5K= ID Date Data Source [id number] 2020 04:25:28 PM EDT [address] [address]Fdgtjbi Name: ELIZABETH LAWRENCEDOB: 1935Sex: FOrdering Provider: SAAD VILLAREALAuthoriofe Prov: SAAD VILLAREALReferring Provider: Procedure Performed: / XR CHEST PORTABLEExam Date: 2020 16:13MRN: [id number] Number: [id number] Class: InpatientAccount #: [id number] for Exam: Post TAVR procedureTechnique: AP portable view obtained.Comparison: NoneFindings: The heart is enlarged and there is an aortic valve cage prosthesis. There is a right jugular external to internal pacemaker terminating in the expected region of the apex of the right ventricle.There is prompt of bronchovascular markings. There is thickening of the minor fissure. There is no pneumothorax, pleural effusion or free air beneath the diaphragms.IMPRESSION: Aortic valve cage prosthesis and cardiac megaly. Some findings of mild congestive heart failure. Continued follow-up recommended. No pneumothorax identified.Report electronically signed by: ALBER BRENNAN On 2020 4:25 PMWorkstation ID: [id number] Name Value Range Interpretation Code Description Data Berkley rce(s) Supporting Document(s) ID Date Data Source [id number] 2020 06:13:03 PM EDT [facility] Name Value Range Interpretation Code Description Data Berkley rce(s) Supporting Document(s) MAGNESIUM 2.0 mg/dL (1.7-2.4) [facility] ID Date Data Source [id number] 2020 06:13:03 PM EDT [facility] Name Value Range Interpretation Code Description Data Berkley rce(s) Supporting Document(s) SODIUM 141 mmol/L (136-145) [facility] POTASSIUM 4.0 mmol/L (3.6-5.2) [facility] CHLORIDE 110 mmol/L (100-108) H [facility] CO2 25 mmol/L (22-31) [facility] ANION GAP 6 mmol/L (7-16) L [facility] UREA NITROGEN 21 mg/dL (7-24) [facility] CREATININE 0.88 mg/dL (0.60-1.00) [facility] BUN/CREAT RATIO 23.9 RATIO (10.0-20.0) H [facility] GLUCOSE 131 mg/dL (70-99) H [facility] CALCIUM 7.6 mg/dL (8.4-10.2) L [facility] GFR >60 ml/min/1.73m2 (>59) [facility] GFR ( AMER) >60 ml/min/1.73m2 (>59) [facility] GFR INTERPRETATION [facility] --NORMAL KIDNEY FUNCTION OR MILD DISEASE - GFR >OR= 60CHRONIC KIDNEY DISEASE - GFR 15 - 59RENAL FAILURE - GFR <15 Est. GFR calculation based on the MDRDstudy equation, which assumes a steadystate for creatinine. Est. GFR should notbe used for medication dosing. ID Date Data Source [id number] 2020 06:05:31 PM EDT [facility] Name Value Range Interpretation Code Description Data Berkley rce(s) Supporting Document(s) PT 11.9 s (9.2-11.9) [facility] INR 1.13 [facility] SUGGESTED THERAPEUTIC RANGES USING INR F ORSTABILIZED ANTICOAGULATED PATIENTS:STANDARD DOSE THERAPY INR 2.0-3.0 DVT, PE, PREVENT DVT OR EMBOLISMHIGH DOSE THERAPY INR 2.5-3.5 PREVENT EMBOLISM FROM MECHANICAL HEART VALVE ID Date Data Source [id number] 2020 05:47:18 PM EDT [facility] Name Value Range Interpretation Code Description Data Berkley rce(s) Supporting Document(s) WBC 2.7 10*3/uL (4.1-11.0) L [facility] RBC 2.57 10*6/uL (4.00-5.40) L [facility] HGB 8.8 g/dL (12.0-16.0) L [facility] HCT 26.1 % (36.0-47.0) L [facility] MCV 101.6 fL (80.0-95.0) H [facility] MCH 34.3 pg (27.0-32.0) H [facility] MCHC 33.7 g/dL (32.0-36.0) [facility] RDW 22.5 % (10.5-14.5) H [facility] PLT 155 10*3/uL (150-450) [facility] MPV 9.8 fL (7.1-10.7) [facility] ID Date Data Source [id number] 2020 03:54:23 PM EDT [facility] Name Value Range Interpretation Code Description Data Berkley rce(s) Supporting Document(s) &PDF [facility] LOIJFr8qCpHWGsMo71/ICMykYOWyl9JhDHdmZOn1QIeeSGVfW2QdnIdgRE8JH44VOMwJFNJDFX4YFNFy 0b3 [file] AgICAgICAgICAgICAgICAgICAgICAgICAgICAgICAg ICAgICAgICAgICAgICAgICAgDQogICAgICAgICAgICAgICAgICAgICAgICAgICAgICAgICAgICAgICAg ICAgICAgICAgICAgICAgICAgICAgICAgICAgICAgICAgICAgICAgICAgICAgICAgICAgICAgICAgICAg DQogICAgICAgICAgICAgICAgICAgICAgICAgICAgIC AgICAgICAgICAgICAgICAgICAgICAgICAgICAgICAgICAgICAgICAgICAgICAgICAgICAgICAgICAgIC AgICAgICAgICAgDQogICAgICAgICAgICAgICAgICAgICAgICAgICAgICAgICAgICAgICAgICAgICAgIC AgICAgICAgICAgICAgICAgICAgICAgICAgICAgICAg ICAgICAgICAgICAgICAgICAgICAgDQogICAgICAgICAgICAgICAgICAgICAgICAgICAgICAgICAgICAg ICAgICAgICAgICAgICAgICAgICAgICAgICAgICAgICAgICAgICAgICAgICAgICAgICAgICAgICAgICAg ICAgDQogICAgICAgICAgICAgICAgICAgICAgICAgIC AgICAgICAgICAgICAgICAgICAgICAgICAgICAgICAgICAgICAgICAgICAgICAgICAgICAgICAgICAgIC AgICAgICAgICAgICAgDQogICAgICAgICAgICAgICAgICAgICAgICAgICAgICAgICAgICAgICAgICAgIC AgICAgICAgICAgICAgICAgICAgICAgICAgICAgICAg ICAgICAgICAgICAgICAgICAgICAgICAgDQogICAgICAgICAgICAgICAgICAgICAgICAgICAgICAgICAg ICAgICAgICAgICAgICAgICAgICAgICAgICAgICAgICAgICAgICAgICAgICAgICAgICAgICAgICAgICAg ICAgICAgDQogICAgICAgICAgICAgICAgICAgICAgIC AgICAgICAgICAgICAgICAgICAgICAgICAgICAgICAgICAgICAgICAgICAgICAgICAgICAgICAgICAgIC AgICAgICAgICAgICAgICAgDQogICAgICAgICAgICAgICAgICAgICAgICAgICAgICAgICAgICAgICAgIC AgICAgICAgICAgICAgICAgICAgICAgICAgICAgICAg QSEhGNVxOVSdPRUbSZTdYWOaWOJgMOYiIROeAMt5U1gtLKMbCKEjTW6lSNc7Yu7+OInYIiFbZVJ3ybVe pC0BIV8ct7HmNEqzGAMex3FfZXi2XC4SZLGmKAemYI6PNGwfza4RYKGwNCXsmVONv8yfXnFtMYE4GEUw UzblQZ5UGHNaM9sicaZpLMBrADLHIQkoQZQDTU9ANa UyF9WthF73UYVXXa3+PJefouTgDmcUSjMwBBKie0KeEWy5EB3DOHMgATnrRR6MTSLvsC9vWRobZA0SIq HjMLAcSQZOWeAsN17izWItTMw7A4LpLxCuJEOyJgmpYWInCFobYpHwXKMxBbAgEBywMC4+ID4+DQogIC 7YCSvwtaXsTZEpBm8MFGYtGLP6OFEahPBgVaHeVCKB MXopLP3CkNDnMRE8fR3zAUnqATPtKLUsC8dHYgYvwJxoJJ17qEoqhoWtpZNoLNg+Xf8SOC9qh7AiCHu0 ofXaYTrdAHYaBEklXTWdBEAgYRGmSYT4VKH2SJGORtAcOTBaMGYeKOcvXRJqMPVwio0OSJKfNJWjYyLi WcWsUBLjOLUcVAuuWELvZTX8OaYmYJPxOYUeRX5FWe BoROWyCUVkMDQzCVGeCFYdlc5HYKCwYEYzDjImVARrXOSqOKPjRJvuXNNjNULzKqX5PNXeRTBtWL7ETx TtNQOoDKT2SYowFRLvIKFoea4HTAFpJQYxUiBoOVFaOGKpSRQvJIslYOZfFJCwLHzyEZVkFNZvPX9VAy MmQCNzEMSsOoQaMXMuVHMohf1MXZGfLADzKPL3FqXz MFXiXVRuNVzmLMQyBIH2SiW5XRIqVITwUG1FReEhAFMtLLN5WFnlTQQbQTSrap5LXWLpMYSxSZB1ZnWc LCPbGYVwKHknWAHeRDK3WgI7CQCnXACvSS5JYjXkGIRyTEW6UZTyLDPgGYCfwj3IUWGnGYNtGwL5IRKh MOOoQHYcGPtrRQCnPMPsHJI0ZSGyVNGuXW9MLsXeYO WlDKM4XQXwSTRuUUZzer0QUISqEBPwZibhAPNuANZhFOGdYOioQLZqTRQ4CfY8QHGaWJNoWN5EEiXrKV ikMTDELvi6KEhbL8i4CPJgPx3ZG5Upn8DbNiIoCKZINWbwRN2jzcGbJJHxIr5AT9gGDka8KbS1EEUtOA nmZvDfHFY4XBatIjKkH1MsVuHuQXSrFI8sTUSfUjI0 BmLhXZR6VYM0ZxO2KZGkALPvFQT3JYWrDxR6ArJuLK8HLd7XQyL9ZHA2zFXbAa2YQFb6APVRJmPcFJ0Z DQo= ID Date Data Source [id number] 2020 03:43:[address] [facility] INFORMATIONPatient MRN Name Date of Age Gend*PT [id number] Elizabeth Lawrence 1935 85 years F IPPT Location Admission Date/Time Visit ID Attending [id number] 12/21/20 1027 --- Saad Villareal MD([id number]) EPI ID CSN Admitting Provider [id number] Saad Villareal MD([id number])TAVR (Transcatheter Aortic Valve Replacement)Patient Name: Elizabeth LawrenceMedical Record No: [id number] of : 1935 Age 85 yearsPrimary Physician: CHITO BOWDEN MD PCP [place]app of Surgery: 2020Interventional Sas Programmer Analyst: Saad Villareal MDHeart Valve Team: Dr. Green and Dr. Ivonne CarrionProcedure: Transcatheter aortic valve replacement with a 23 mm Mindy 3 ul traPre-procedure Diagnosis: Severe symptomatic aortic stenosisPost-procedure Diagnosis: Severe symptomatic aortic stenosisSymptoms/Indication: 85-year-old woman with essential thrombocytosis and severesymptomatic aortic stenosis without coronary artery disease and normal leftventricular systolic function who presented for TAVR.Physical exam: BP 155/76 (BP Location: Right upper arm, Patient Position: Lying)| Pulse 87 | Temp 97.5 F (Oral) | Resp 18 | Ht 1.651 m (5' 5") | Wt 59.7 kg(131 lb 9.8 oz) | SpO2 98% | BMI 21.90 kg/m Lungs are clear to auscultation heart sounds are normal S1 and absent S2 with alate peak 2 out of 6 systolic ejection murmur.EKG: Sinus rhythm with normal conductionCreatinine: 0.9Procedure descriptionAccess: Left femoralValve type: 23 mm Mindy 3 ultraRight and left femoral arterial access was obtained. From the right the pigtailwas advanced to the right coronary cusp and aortic root angiogram was obtained.From the left after precluding with 2 Perclose devices at an angle we upsizedover a Lunderquist wire to a 14 Kosovan Alva sheath. We then advanced a 23 mmSapien 3 ultra valve over a confid with rapid pacing at 180 bpm. There was nosignificant AI a wire placed into the left ventricle and it was deployed and thevalve was in good position. The valve delivery device was then retrieved andthe 2 Perclose devices were tied and hemostasis was obtained o n the left. AStar close was deployed on the right.Estimated Blood Loss: MinimalComplications: NoneSedation: General anesthesiaSpecimens: NoneContrast used: See scanned cath report document under the media tab.Implants: 23 mm Mindy 3 ultraConclusion1. Severe symptomatic aortic stenosis post successful TAVR with a 23 mm Mindy 3ultra valve.2. No angiographic coronary artery disease.3. Normal systolic function.4. Mild mitral stenosis.5. Essential thrombocytosis. Plan1. Admit to telemetry2. Telemetry class I3. Access: Closed4. Pacemaker: Backup5. Anticoagulation: PlavixSignature: Saad Villareal MDDate: 2020Time: 3:35 [facility]: Dr. Maldonado document or parts of this document, were dictated using [employer]. A reasonable attempt at proofreading has been made to minimize errors.Please call with any questions or corrections. Name Value Range Interpretation Code Description Data Berkley e(s) Supporting Document(s) ID Date Data Source [id number] 2020 03:25:01 PM EDT [facility] Name Value Range Interpretation Code Description Data [facility] Supporting Document(s) POC SOURCE [facility] CP BYPASS [facility] POC PH 7.43 pH (7.35-7.45) [facility] POC PCO2 42.5 MMHG (32.0-48.0) [facility] POC PO2 552 MMHG (83-108) H [facility] POC SAT O2 100 % (95-99) H [facility] POC BASE EXCESS 3 MMOL/L (0-3) [facility] POC HCO3 28.0 MMOL/L (21.0-29.0) [facility] POC TOTAL CO2 29 MMOL/L (23.0-32.0) [facility] PERFORMED BY [facility] STAFF POC HCT 23 % (36.0-47.0) L [facility] POC SODIUM 137 MMOL/L (136-145) [facility] POC POTASSIUM 3.8 MMOL/L (3.6-5.2) [facility] POC IONIZED CALCIUM 4.5 MG/DL (4.6-5.3) L [facility] POC GLU 105 MG/DL (70-99) H [facility] PER[facility] LAB [facility] ID Date Data Source [id number] 2020 03:28:13 PM EDT [facility] Name Value Range Interpretation Code Description Data Berkley rce(s) Supporting Document(s) POC ACT 263 s (80-140) H [facility] PERFORMED BY [facility] STA[facility] ID Date Data Source [id number] 2020 03:03:[address] [facility] INFORMATIONPatient MRN Name Date of Age Gend*PT [id number] Elizabeth Lawrence 1935 85 years F SDAPT Location Admission Date/Time Visit ID Attending Provider --- --- --- --- EPI ID CSN Admitting Provider [id number] ---Introducer AdditionsPatient location during procedure: CV hybrid roomIndications for introducer addition: Temporary pacingStaffingPerformed by: Bhavik Berry CRNACompleted: patient identified, risks and benefits discussed, surgical consentobtained, anesthesia consent obtained, monitors and equipment checked, pre-opevaluation completed, timeout performed, patient was prepped and draped in usualsterile fashion,Introducer AdditionsIntroducer addition: Transvenous PacerInsertion depth (cm): 35Introducer placed: At time of introducer additionPacing wires procedure: Pacing wire was introduced, Pacing box set at VOO andWire was advanced using balloon flow directed method until ventricular capturewas notedType of pacing wires: VentricularPacing box rate: 100Pacing threshold obtained at: 1AssessmentSecurement method: securement devicePlacement verification: ventricular captureAssessment: tolerated well, no changes to vital signs and catheter flushed [id number] NS Name Value Range Interpretation Code Description Data Berkley rce(s) Supporting Document(s) ID Date Data Source [id number] 2020 03:03:03 PM EDT [facility] NT INFORMATIONPatient MRN Name Date of Age Gend*PT [id number] Elizabeth Lawrence 1935 85 years F SDAPT Location Admission Date/Time Visit ID Attending Provider --- --- --- --- EPI ID CSN Admitting Provider [id number] ---Central Line InsertionPatient location during procedure: CV hybrid roomIndications for central line: temporary pacingStaffingPerformed by: Bhavik Berry CRNAApproved by: RANDY Teixeiraompleted: patient identified, risks and benefits discussed, surgical consentobtained, anesthesia consent obtained, monitors and equipment checked, pre-opevaluation completed, timeout performed, patient was prepped and draped in usualsterile fashion,Central LineCatheter type: IntroducerCVC type: non-tunnelledNeedle gauge: 18 GCatheter size: 5 FrSite prep: chlorhexidine gluconateLaterality: rightLocation: internal jugularTechnique: CVC inserted using ultrasound guidanceProcedure: Catheter inserted and manometry was performed, No arrythmias,Catheter was withdrawn and Guidewire passed through the catheterAssessmentSecurement method: SuturedPlacement verification: UltrasoundAssessment: tolerated well, no changes to vital signs and catheter flushed [id number] NS Name Value Range Interpretation Code Description Data Berkley rce(s) Supporting Document(s) ID Date Data Source [id number] 2020 02:46:44 PM EDT [facility] NT INFORMATIONPatient MRN Name Date of Age Gend*PT [id number] Elizabeth Lawrence 1935 85 years F SDAPT Location Admission Date/Time Visit ID Attending Provider --- --- --- --- EPI ID CSN Admitting Provider [id number] ---Arterial Line PlacementPatient location during procedure: ORIndications for arterial line: multiple ABGs and hemodynamic monitoringStaffingPerformed by: Bhavik Berry CRNAApproved by: RANDY Teixeiraompleted: patient identified, risks and benefits discussed, surgical consentobtained, anesthesia consent obtained, monitors and equipment checked, pre-opevaluation completed, timeout performed, patient was prepped and draped in usualsterile fashion,Arterial Line InsertionSite prep: chlorhexidineLaterality: rightLocation: radial arteryNeedle gauge: 20 GTechnique: Seldinger technique used and ultrasound guidedNumber of attempts: 1AssessmentSutured: noDressing: dressing appliedPatient tolerance: tolerated well Name Value Range Interpretation Code Description Data Berkley rce(s) Supporting Document(s) ID Date Data Source [id number] 2020 02:46:[address] [facility] INFORMATIONPatient MRN Name Date of Age Gend*PT [id number] Clementine Elizabeth C 1935 85 years F SDAPT Location Admission Date/Time Visit ID Attending Provider --- --- --- --- EPI ID CSN Admitting Provider [id number] ---AirwayPatient location during procedure: ORUrgency: electiveDifficult airway: noAdvanced airway equipment used: noStaffingPerformed by: Alvaro Glover MDAnesthesiologist: Alvaro Glover MDIndications and Patient ConditionIndications for airway management: anesthesiaPreoxygenated: yesPatient position: sniffingIn-line stabilization: noMask ventilation: 1 - vent by maskFinal Airway/ApproachesFinal airway type: ETTNumber of attempts at final approach: 1Number of other approaches attempted: 0Final Airway DetailsFinal ETT airway: ETT - singleCuffed: yesTechnique used for successful ETT placement: direct laryngoscopy and regularstyletCricoid pressure: noRSI: noInsertion site: oralBlade type/size: MAC 3.5ETT size: 8.0 mmMeasured from: lipsETT to lips: 20 cmPlacement verified by: chest auscultation and + [id number]: CTA and equal breath sounds bilateralGrade view: grade IIa - partial view of glottis Name Value Range Interpretation Code Description Data Berkley rce(s) Supporting Document(s) ID Date Data Source [id number] 2020 03:28:13 PM EDT [facility] Name Value Range Interpretation Code Description Data Berkley rce(s) Supporting Document(s) POC ACT 142 s (80-140) H [facility]FORMED BY [facility] ID Date Data Source [id number] 2020 02:48:57 PM EDT [facility] Name Value Range Interpretation Code Description Data Berkley rce(s) Supporting Document(s) POC SOURCE [facility] CP BYPASS [facility] POC PH 7.34 pH (7.35-7.45) L [facility] POC PCO2 52.8 MMHG (32.0-48.0) H [facility] POC PO2 476 MMHG (83-108) H [facility] POC SAT O2 100 % (95-99) H [facility] POC BASE EXCESS 2 MMOL/L (0-3) [facility] POC HCO3 28.2 MMOL/L (21.0-29.0) [facility] POC TOTAL CO2 30 MMOL/L (23.0-32.0) [facility]FOR[facility] BY [facility] POC HCT 26 % (36.0-47.0) L [facility] POC SODIUM 142 MMOL/L (136-145) [facility] POC POTASSIUM 3.9 MMOL/L (3.6-5.2) [facility] POC IONIZED CALCIUM 4.8 MG/DL (4.6-5.3) [facility] POC GLU 106 MG/DL (70-99) H [facility] PER[facility] LAB [facility] ID Date Data Source [id number] 2020 11:12:27 AM EDT [facility] Name Value Range Interpretation Code Description Data Berkley rce(s) Supporting Document(s) POC NOVA GLU 104 mg/dL (70-99) H [facility] [place] [facility]FOR[facility] ID Date Data Source [id number] 2020 02:28:49 PM EDT [facility] Name Value Range Interpretation Code Description Data Berkley rce(s) Supporting Document(s) ROOM TEMP AB SCREEN [facility] ROOM TEMP AB SCREEN NEGATIVE ID Date Data Source [id number] 12/22/2020 10:31:34 AM EDT [facility] SPEC EXP DATE 12/24/2020ATI ENT ABO/Rh O NEGATIVEANTIBODY SCREEN NEGATIVETESTING SITE PERFORMED AT [address] [place] [address] [place] [id number] NUMBER [id number] COMPONENT TYPE LEUKOPOOR RED CELLSUNIT DIVISION 00STATUS OF UNIT REL FROM ALLOCTRANSFUSION STATUS OK TO TRANSFUSECROSSMATCH RESULT COMPATIBLEUNIT NUMBER [id number] COMPONENT TYPE LEUKOPOOR RED CELLSUNIT DIVISION 00STATUS OF UNIT REL FROM ALLOCTRANSFUSION STATUS OK TO TRANSFUSECROSSMATCH RESULT COMPATIBLE Name Value Range Interpretation Code Description Data Berkley rce(s) Supporting Document(s) TYPE AND SCREEN [facility] ID Date Data Source [id number] 12/16/2020 02:26:[address] [facility] NT INFORMATIONPatient MRN Name Date of Age Gend*PT [id number] Elizabeth Lawrence 1935 84 years F OPPT Location Admission Date/Time Visit ID Attending Provider --- --- --- Saad Villareal MD([id number]) EPI ID CSN Admitting Provider [id number] ---HISTORY PHYSICALName: Elizabeth Lawrence : 1935 Sex: female Care Provider: Eb FELDMAN Physician: Dr. Ivonne CarrionInformant: The patient who is reliable.Chief Complaint: I need a better valveHISTORY OF PRESENT ILLNESS: 84 years old white female with overall fatigue withnoted anemia of unknown origin. This was a coincidental finding during thisworkup; she is scheduled for colonoscopy for further evaluation. Denies SOB,CP, nocturnal SOB, dyspnea, orthopnea, and she does note instability and uses awalking stick. Denies any weakness or NT to arms, legs or face. Urination/BMare WNL. She denies any unintentional weight loss or gain. Denies SOB, CP,NVD, FCN.Cardiac catheterization on 11/08/2020:Conclusions -1. Normal Coronaries2. Severe Aortic Stenosis with ANUSHKA 0.733. Mild pulmonary hypertension.4. Elevated LVEDP 205. No LV gramECHO on 09/21/2020 interpretation: Left ventricular systolic ejection fraction is normal, estimated at 60 to 65%. There is moderate mitral annular calcification. The left atrium is mildlydi lated, 4.5 cm. Mild to moderate mitral stenosis. Moderate mitralregurgitation. Moderate tricuspid regurgitation. Moderate pulmonary hypertension present. Theright atrium is mildly dilated. There is calcification with reduced excursion of the aortic valve present.Severe aortic stenosis. Trace aortic insufficiency is present. Grade I (mild) left ventricular diastolic dysfunction consistent with impairedrelaxation. Normal wall thickness observed.The patient met with Dr. Ivonne Carrion, options were discussed and they have electedto undergo TRANSCATHETER AORTIC VALVE IMPLANT FEMORAL on 2020.PAST MEDICAL HISTORY:Past Medical History:Diagnosis Date Arthritis 05/13/2019 Complete uterovaginal prolapse 10/29/2007 Created by Conversion DVT (deep vein thrombosis) in 05/13/2019 Essential hypertension 05/13/2019 External hemorrhoids 10/29/2007 Created by Conversion Fecal incontinence 05/04/2013 Gastroesophageal reflux disease without esophagitis 05/13/2019 Nonrheumatic aortic (valve) stenosis Nonrheumatic aortic valve stenosis 05/13/2019 Small bowel obstruction 05/13/2018 ThrombocythemiaPAST SURGICAL HISTORY:Past Surgical History:Procedure Laterality Date CARDIAC CATHETERIZATION N/A 11/21/2020 Procedure: Right heart cath; Surgeon: Amelia Jacome MD; Laterality: N/A; CARDIAC CATHETERIZATION N/A 11/21/2020 Procedure: Left heart cath; Surgeon: Amelia Jacome MD; Laterality: N/A; COLONOSCOPY HIP FRACTURE SURGERY Right 03/2019 [facility] HYSTERECTOMY PANENDOSCOPYALLERGIES: No Known Drug AllergiesMEDICATIONS:Current Outpatient MedicationsMedication Sig Dispense Refill anagrelide (AGRYLIN) 0.5 MG capsule Take 0.5 mg by mouth 3 (three) times a day CALCIUM-VITAMIN D PO Take 1 tablet by mouth daily ferrous gluconate (FERGON) 324 MG tablet Take 324 mg by mouth 2 (two) times aday furosemide (LASIX) 20 MG tablet Take 20 mg by mouth daily isosorbide dinitrate (ISORDIL) 20 MG tablet Take 20 mg by mouth 2 (two) timesa day lidocaine (LIDODERM) 5 % Place 1 patch on the skin daily as needed (toback/hips) Remove & Discard patch within 12 hours or as directed by metroNIDAZOLE (METROCREAM) 0.75 % cream Apply topically 2 (two) times a day OnfaceNo current facility-administered medications for this visit.Social HistoryTobacco Use Smoking status: Never Smoker Smokeless tobacco: Never UsedVaping Use Vaping Use: Never usedSubstance Use Topics Alcohol use: Yes Comment: rarely Drug use: NeverFamily HistoryProblem Relation Age of Onset Malig Hyperthermia Neg HxREVIEW OF SYSTEMS:Constitution: Weight stable. Denies fever or chills. Caffeine intake: 2cups/day. She has fatigue.HEENT: P atient wears glasses. Denies any blurred vision, double vision,dizziness, tinnitus, dysphagia or headaches.Respiratory: Denies any shortness of breath at rest, she is getting PLASENCIA withminimal exertion. Denies cough, yellow sputum production or wheezing.Cardiovascular: See HPI as above. Denies any chest pain, pressure or tightness.Denies any paroxysmal nocturnal dyspnea or orthopnea.Muscle/Skeletal System: Denies any muscle ache, joint ache or weakness.Neurologic: Denies any numbness, tingling, tremors or syncope.GI: Denies any nausea, vomiting, diarrhea, constipation or melena.: Denies any dysuria, hematuria or nocturia.Endocrine: Denies polyuria, polydipsia or polyphagia. Denies any heat or coldintolerance or night sweats.Hematology: Denies any bleeding or bruising tendencies.DNR Status: YesHCP: Yes as per patient.PHYSICAL EXAM:General: She is a 84 years old, pleasant white female, in no acute distress attime of examination. Vitals on arrival to the office are BP 110/55 (BP Location:Left upper arm, Patient Position: Sitting) | Pulse 100 | Ht 1.651 m (5' 5") |Wt 61.3 kg (135 lb 1.6 oz) | SpO2 96% | BMI 22.48 kg/m Body mass index is22.48 kg/m ..Skin is pink warm and dry.HEENT: She is normocephalic, atraumatic. [place] conjunctivae. Anicteric sclerae.Pupils are equal, round, reactive to light and accommodation. Extraocularmovements are intact. Ears: Without drainage or lesion . Mouth: Patient haspartial upper dentures. Dentition is in good repair. She has a grade 1 airway.Neck is supple midline without cervical adenopathy. There is no tonsillopharyngeal congestion. Mucous membranes are moist. There are no oral lesions. Nojugular distention. No carotid bruit.CHEST/BREAST: A/P less than transverse. Breast exam declined.LUNGS: Clear to auscultation. No wheezes, rhonchi or crackles.HEART: Rate rhythm regular. Positive blowing 4/6 systolic murmur, best heard onleft greater than right sternal border with occasional skipped beat noted.ABDOMEN: Bowel sounds positive times four. Soft, non tender. No reboundtenderness. No hepatosplenomegaly. Negative CVAT.GENITAL/RECTAL: Deferred.MUSCLE/SKELETAL: Strength is 5/5. Tack Puller are equal.NEUROLOGICALLY: Cranial nerves II through XII are grossly intact.VASCULAR: Pulses are symmetrical. Minimal peripheral edema.Anesthesia complications: NoneSteroid use: [facility] Frailty Scale :: 4/10 Vulnerable (while not dependent on others for dailyhelp, often symptoms limit activities. A common complaint is being "slowed up",and /or being tired during the day).Stop Bang Questionnaire - Total Score:STOP-Bang Total Score: 2IMPRESSION and PLAN:Primary Diagnosis: Nonrheumatic aortic valve stenosisTRANSCATHETER AORTIC VALVE IMPLANT FEMORAL surgery as per Dr. Villareal.Secondary Diagnosis and Plan:1. CAD EKG obtained in Pre-Admission testing or external EKG within 6 months,Continuation of cardiac medications post-operatively based on clinical status2. Hypertension Continuation of prior to admission anti-hypertensivemedications unless precluded by clinical status.3. GI prophylaxis Per surgeon4. DVT prophylaxis Early ambulation. Pneumatic compression device.Subcutaneous Heparin or LMW Heparin if clinically indicatedBased on above medical co morbidities, length of stay may be prolonged greaterthan previously anticipated.ALLERGIES:Patient has no known drug allergies.12/16/2020 2:25 PMEDU Mcneil*This document or parts of this document, were dictated using [employer] software. A reasonable attempt at proofreading has beenmade to minimize errors. Please call with any questions or corrections. Name Value Range Interpretation Code Description Data Berkley rce(s) Supporting Document(s) ID Date Data Source [id number] 12/16/2020 12:06:38 PM EDT [facility] Name Value Range Interpretation Code Description Data Berkley rce(s) Supporting Document(s) EKG [facility] [id number]WNPfMBAQGX6JmSDg jb2 [file] Gómez+lwUntIw07++5J9E6G4yoTwlW3GY/woqD1vHL3F4u+pXJfltGmN2lS975qN7iDfrbtQ1rW+qqp3HM [file] QoSrVHR3elJa0lMbQnAMHTN7Lea0ExUCGbKATLRu1+OmD2RKN6zCUpSew7Hbu1HWmlPIOJQm== ID Date Data Source [id number] 12/17/2020 10:50:09 AM EDT [facility] SPECIMEN DESCRIPTION MIDSTREAM UR INE,CLEAN CATCHCULTURE RESULTS NO GROWTHREPORT STATUS FINAL 12/17/2020 Name Value Range Interpretation Code Description Data Berkley rce(s) Supporting Document(s) ID Date Data Source [id number] 12/16/2020 02:29:25 PM EDT [facility] Name Value Range Interpretation Code Description Data Berkley rce(s) Supporting Document(s) COLOR [facility] APPEARANCE [facility] SPEC GRAV URINE 1.012 (1.003-1.030) [facility] PH URINE 5.0 (5.0-7.5) [facility] LEUK ESTERASE (NEG) [facility] NITRITE URINE (NEG) [facility] PROTEIN URINE (NEG) [facility] GLUCOSE URINE (NEG) [facility] KETONE URINE (NEG) [facility] [place] UROBILINOGEN 0.2 mg/dL (0-1.0) [facility] [place] BILIRUBIN URINE (NEG) [facility] BLOOD/HGB URINE (NEG) [facility] ID Date Data Source [id number] 12/17/2020 10:55:41 AM EDT [facility] Name Value Range Interpretation Code Description Data Berkley rce(s) Supporting Document(s) SPECIMEN DESCRIPTION [facility] STAPH SCREEN RESULTS (ONEGSA) [facility] COMMENT [facility] GENE TO DETECT STAPH AUREUS. (2) RT-P CR WAS PERFORMED FOR THE mecA AND SCCmec GENES TO DETECT METHICILLIN RESISTANCE IN STAPH AUREUS. ID Date Data Source [id number] 12/19/2020 06:55:08 PM EDT [facility] Name Value Range Interpretation Code Description Data Berkley rce(s) Supporting Document(s) WBC 2.7 10*3/uL (4.1-11.0) L [facility] [place] RBC 3.01 10*6/uL (4.00-5.40) L [facility] HGB 10.3 g/dL (12.0-16.0) L [facility] HCT 30.5 % (36.0-47.0) L [facility] MCV 101.4 fL (80.0-95.0) H [facility] MCH 34.2 pg (27.0-32.0) H [facility] MCHC 33.7 g/dL (32.0-36.0) [facility] RDW 22.9 % (10.5-14.5) H [facility] PLT 166 10*3/uL (150-450) [facility] MPV 9.8 fL (7.1-10.7) [facility] NEUT % 52.0 % (35.0-75.0) [facility] LYMPH % 33.0 % (16.0-52.0) [facility] ATYP LYMPH % 1.0 % (0.0-5.0) [facility] [place] MONO % 6.0 % (0.0-8.0) [facility] EOS % 8.0 % (0.0-5.0) H [facility] NEUT # 1.4 10*3/uL (1.8-7.7) L [facility] LYMPH # 0.9 10*3/uL (1.2-4.8) L [facility] ATYP LYMPH # 0.0 10*3/uL [facility] MONO # 0.2 10*3/uL (0.0-0.8) [facility] Eosinophils [#/volume] in Blood by Automated count 0.2 10*3/uL (0.0-0 .5) [facility] DOHLE BODIES 1+ [facility] [place] ANISO 2+ [facility] POIK 1+ [facility] MACRO 1+ [facility] LARGE PLT 1+ [facility] DIFF COMMENT [facility] [place] PATHOLOGIST COMM [facility] HYPOGRANULAR NEUTROPHILS. DR VALADEZ [id number] PERFORMED AT [address] [place] [address] ID Date Data Source [id number] 12/16/2020 02:42:20 PM EDT [facility] Name Value Range Interpretation Code Description Data Berkley rce(s) Supporting Document(s) APTT 27.4 s (22.0-34.3) [facility] ID Date Data Source [id number] 12/16/2020 02:42:20 PM EDT [facility] Name Value Range Interpretation Code Description Data Berkley rce(s) Supporting Document(s) PT 10.9 s (9.2-11.9) [facility] INR 1.02 [facility] SUGGESTED THERAPEUTIC RANGES USING INR F ORSTABILIZED ANTICOAGULATED PATIENTS:STANDARD DOSE THERAPY INR 2.0-3.0 DVT, PE, PREVENT DVT OR EMBOLISMHIGH DOSE THERAPY INR 2.5-3.5 PREVENT EMBOLISM FROM MECHANICAL HEART VALVE ID Date Data Source [id number] 12/16/2020 02:34:14 PM EDT [facility] Name Value Range Interpretation Code Description Data Berkley rce(s) Supporting Document(s) NT PRO BNP 1454 pg/mL (0-450) H [facility] ID Date Data Source [id number] 12/16/2020 02:34:14 PM EDT [facility] Name Value Range Interpretation Code Description Data Berkley rce(s) Supporting Document(s) SODIUM 142 mmol/L (136-145) [facility] POTASSIUM 4.1 mmol/L (3.6-5.2) [facility] CHLORIDE 106 mmol/L (100-108) [facility] CO2 31 mmol/L (22-31) [facility] ANION GAP 5 mmol/L (7-16) L [facility] UREA NITROGEN 24 mg/dL (7-24) [facility] CREATININE 0.94 mg/dL (0.60-1.00) [facility] BUN/CREAT RATIO 25.5 RATIO (10.0-20.0) H [facility] GLUCOSE 108 mg/dL (70-99) H [facility] CALCIUM 9.4 mg/dL (8.4-10.2) [facility] TOTAL PROTEIN 6.2 g/dL (6.4-8.2) L [facility] ALBUMIN 3.7 g/dL (3.2-4.5) [facility] GLOBULIN 2.5 g/dL (2.7-4.3) L [facility] ALB/GLOB RATIO 1.5 RATIO [facility] ALKALINE PHOSPHATASE 54 U/L (45-117) [facility] BILIRUBIN,TOTAL 0.8 mg/dL (0.0-1.0) [facility] PLEASE NOTE:Total bilirubin results may be falselyelevated in patients taking Eltrombopag. AST (SGOT) 8 U/L (11-39) L Lab [facility] ALT (SGPT) 12 U/L (12-78) [facility] GFR 56 ml/min/1.73m2 (>59) L Lab [facility] GFR ( AMER) >60 ml/min/1.73m2 (>59) Lab [facility] GFR INTERPRETATION Lab [facility] e of [facility] --NORMAL KIDNEY FUNCTION OR MILD DISEASE - GFR >OR= 60CHRONIC KIDNEY DISEASE - GFR 15 - 59RENAL FAILURE - GFR <15 Est. GFR calculation based on the MDRDstudy equation, which assumes a steadystate for creatinine. Est. GFR should notbe used for medication dosing. ID Date Data Source [id number] 12/16/2020 02:27:09 PM EDT [facility] Name Value Range Interpretation Code Description Data Berkley rce(s) Supporting Document(s) HEMOGLOBIN A1C @ 5.3 % (4.0-6.0) [facility] Performed using Siemens [place] immunoassa y.Care must be taken when interpreting [id number] in patients with a hemoglobin variantor decreased erythrocyte lifespan. Values 5.7 - 6.4% suggest prediabetes.Values >=6.5% are diagnostic for diabetes.REFERENCE: DIABETES CARE 2018: 41(S13-S27). EST AVERAGE GLUCOSE 105 mg/dL [facility] ID Date Data Source [id number] 12/16/2020 09:20:00 AM EDT [facility] Name Value Range Interpretation Code Description Data Berkley rce(s) Supporting Document(s) SARS coronavirus 2 RNA [Presence] in Res piratory specimen by MIRA with probe detection NOT DETECTED [facility] This lab was reported by [facility]. ID Date Data Source [id number] 12/17/2020 09:11:24 AM EDT [facility] Name Value Range Interpretation Code Description Data Berkley rce(s) Supporting Document(s) SPECIMEN DESCRIPTION [facility] COVID 19 RESULT (NDET) [facility]AL[facility] NEGATIVE COVID-19 RESULTS DONOT PRECLUDE COVID-2019 INFECTION ANDSHOULD NOT BE USED THE SOLE BASISFOR PATIENT MANAGEMENT DECISIONS. COMMENT [facility] THE [place] FDA HAS MADE THIS TEST AVAILABL EUNDER AN EMERGENCY USE AUTHORIZATION(EUA) FOR THE DETECTION AND/OR DIAGNOSISOF THE VIRUS THAT CAUSES COVID-19.THIS ASSAY AMPLIFIES AND DETECTS [employer] USING HOSPICE ADMITTING CLERK- MEDIATEDAMPLIFICATIONTESTING PERFORMED ON [employer] FIRST TEST [facility] SYMPTOMATIC [facility] Ben[employer] DATE OF SYMPT ONSET [facility] HOSPITALIZED [facility] [place] ICU [facility] CONGREGATE CARE SET [facility] ID Date Data Source [id number] 12/13/2020 10:52:00 AM EDT [facility] [facility] A NGIO CHEST ABDOMEN PELVIS TAVRCLINICAL HISTORY: Severe aortic stenosis. TAVR.COMPARISON: CT chest April 28, 2019, CT abdomen and pelvis April 06, 2019. Those examinations are performed at [facility].TECHNIQUE: ECG gated images were obtained through the chest. Non gated CTA of the chest abdomen pelvis was performed. Multiplanar and maximum intensity projection reconstructions were done. The study was reviewed on a 3 dimensional workstation. 115/125 ISOVUE 370 INJECTED INTRAVENOUSLY.FINDINGS: CTA Chest: The thoracic aorta is normal in caliber. Origin of great vessels is intact. Minimal calcification is seen at the aortic valve. No significant tortuosity of the thoracic aorta.There is extensive mitral annular calcification. Left atrium is enlarged.The lungs are clear. No significant pleural or pericardial effusion.There are multiple lower thoracic vertebral compression fractures which are unchanged.CTA Abdomen and Pelvis: The abdominal aorta is normal in caliber. There is no evidence of aneurysm.Common iliac arteries are tortuous and widely patent. Common femoral arteries are patent as is the femoral bifurcation.Add noted previously the spleen is enlarged measuring about 15 cm in cephalo caudad dimension. When compared to previous examination this is unchanged.. Portal vein is slightly enlarged. There are a few prominent vessels in the splenic hilum suggesting portal hypertension.The liver and pancreas are intact other than pancreatic ductal dilation up to approximately 4 mm which is a finding that was present on the previous examination in 2019 and is unchanged.There are multiple lumbar vertebral compression fractures which are unchanged.IMPRESSION: CTA Chest:Thoracic aorta is normal in caliber and widely patent. Minimal aortic valve calcification. Extensive mitral annular calcification is noted incidentally.CTA Abdomen and Pelvis: All access vessels are widely patent. Tortuous common iliac arteries bilaterally.Incidental splenomegaly and probable portal hypertension. A few perisplenic varices are present. Pancreatic duct is also mildly dilated. Findings are not significantly changed from prior exam.Numerous lower thoracic and lumbar vertebral osteopenic insufficiency fractures are present which are not significantly changed from prior study.Old healed pubic rami fractures are present. Patient is status post open reduction and internal fixation of the femurs bilaterally per.Aortic valve/annular measurements for TAVR are supplied by cardiology.Dictated by: BEN CARROLL M.D. on 12/13/2020lectronically Signed by: BEN CARROLL M.D. on 12/13/2020 01:29 PMTranscribed by: hyacinth on 12/13/2020 01:29 PMCDS G code: , , ,CDS Modifier: , , ,cc: Name Value Range Interpretation Code Description Data Berkley rce(s) Supporting Document(s) ID Date Data Source [id number] 12/08/2020 06:56:00 AM EDT Eliazarrayray Hatch [address] [id number] FOLLOW UP NOTENAME: ELIZABETH LAWRENCE CPHYSICIAN: MARLI RED, MDDATE OF SERVICE: 12/07/20DATE OF : 31CCOUNT #: [id number]: ELIZABETH LAWRENCEDate: Dec 07OB: [birth year]hysician: Marli Red MD, M.B.B.S.Age: 84Note Title: Hematology Follow UpDiagnosis:Primary - R79.1 - Abnormal coagulation profile, Diagnosed 2019 (Active)Primary - D72.819 - Decreased white blood cell count, unspecified,Diagnosed 2019 (Active)Primary - D72.820 - Lympho cytosis (symptomatic), Diagnosed 2019 (Active)Primary - D64.9 - Anemia, unspecified, Diagnosed 2018 (Active)Primary - - Thrombocytosis, Diagnosed May 31, 2014 (Active)Secondary - K62.5 - Hemorrhage of anus and rectum, Diagnosed (Unknown date)(Active)Secondary - I35.0 - Nonrheumatic aortic (valve) stenosis, Diagnosed(Unknown date) (Active)Problems / Chief Complaints:Follow-upHistory of Present Illness:DIAGNOSIS:Essential thrombocytosis, anemiaPROBLEM LIST#1. Stroke in April 2013. Presented with weakness and falls. CT of thehead on April 20, 2013 with old small right p arietal lobe, lacunar infarct,small vessel ischemic disease and mild volume loss.#2, platelet count elevated to 981K On December 25, 2013.#3. 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 Discontinuedsecondary to soreness of hands and feet and mouth sores.#5, started anagrelide 0.5 mg twice daily on May 22, 2014.Anagrelideincreased to TID 2015#6. March 2019-admitted for hip fracture.April 2019-readmitted for influenza.7. Evaluation of bleeding February 10, 2020 hemoglobin 11.2 hematocrit 33.4WBC 2.9 platelets 346 differential neutrophils 33% lymphocytes 50% atypicallymphocytes 7% monocytes 4% eosinophils 6% CMP WNL8. February 15, 2020 hemoglobin 11 hematocrit 33 WBC 2.6 platelets 275neutrophils 43% lymphocytes 45% monocytes 7% eosinophils 4%Prothrombin time 14.2 seconds INR 1.05 PTT normal at 36.7 seconds D-dimerelevated at 0.65 and fibrinogen normal at 298Platelet function analysis collagen epinephrine time elevated at 202 secondscollagen ADP time is listed as pending9. March 24, 2020 hemoglobin 10.3 hematocrit 30.8 WBC 2.9 platelets 274differential neutrophils 41% lymphocytes 45%CMP with creatinine of 1 normalliver panel10. April 05, 2020 flow cytometry no significant immunophenotypicabnormality [id number].July 19, 2020 hemoglobin 9.9 hematocrit 29.3 WBC 2.4 platelets 190differential neutrophils 49% lymphocytes 39% monocytes 7%Absolute neutrophilcount [id number].September 30, 2020 hemoglobin 7.2 hematocrit 23.1 WBC 4.8 platelets 146differential neutrophils 58% lymphocytes 25% monocytes 11% eosinophils 4%13.October 10, 2020 hemoglobin 7.5. October 12, 2020 transfused 2 units ofpackedRBCs.14. December 06, 2020 hemoglobin 8 hematocrit 24.5 WBC 2.4 platelets 189differential neutrophils 48% lymphocytes 42% monocytes 6% eosinophils 10%normal electrolytes creatinine 1 normal liver panel. 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 She has a history of hypertension, arthritis,osteoporosis, and TIA. Found to have an elevated platelet count of 981k. OnDecember 25, 2013.She was admitted to [facility] on April 20, 2013 when shepresented with weakness and falls. CT scan of the head on April 20, 2013showed old small right parietal lobe, lacunar infarct, small vessel ischemicdisease and mild volume loss. It is unknown if her platelet count was elevatedat that time. The patient had REGINA 2 mutation tested which was negative. Therewas no evidence of exon 12 or exon 13 Mutations. Testing for MPL W515 and AIXS751 mutation was also negative. There was no evidence of elevated ferritin,and platelet count remained elevated at between 820-829. 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 Thepatient developed hand-foot syndrome shortly after taking hydroxyurea. Shealso had mouth sores. All of her symptoms resolved after stopping the drug.The decision was made to start anagrelide.INTERVAL HISTORY:Patient returns on December 08, 2020 for a follow-up visit accompanied by gali. On October 10 she had a hemoglobin of 7.5 and on October 12 she wastransfused a total of 3 units of packed RBCs. She states that she is nowscheduled for colonoscopy in the beginning of January 2021 because she hadblood in the stool for the first time. It is felt to be related tohemorrhoids. She is also having a heart valve replacement for aortic stenosis.She is going to have a CT scan to measure the valves in late December or earlyJanuary. She has been told by the senior adults director that she does not feel wellbecause of her heart valve problem. The patient and daughter would like towait for the bone marrow test until after she completes her heart valvereplacement.Overall the patient feels good but feels that she does not have the sameambition as before. She has to force herself to do things. Appetite is good.Weight loss of 7 pounds. She states that she was down to 129 pounds and hasgained 5 pounds back. Has been retaining fluid in the ankles.Past Medical History:Aortic stenosisArthritisHypertensionOsteoporosisRectal bleedingTIA (transient ischemic attack) (last winter saw orbs and stars in field ofvision, had a fall x2, stayed at home because felt better, symp resolved in 24hrs. Had left sided weakness for 2 months. 2013)Bowel obstruction in 2018Past Surgical History:[facility] [place], also did bladder lift.Surgery for fracture of - Leg and Compression Fractures in back.Right hip ORIF in 2019Colonoscopy in 2015Allergies:No Known Allergies.Current Medications:Acetaminophen 325 mg Tablet Oral once (Oct 10, 2020)Anagrelide HCl (0.5 mg) Capsule Oral Take as Directed (Jan 25, 2016)Blood 1 Unit(s) Intravenous once over 180 minutes (Oct 10, 2020)Loratadine 10 mg Tablet Oral daily for 1 day (Oct 12, 2020)Anagrelide HCl (0.5 mg) Capsule Oral Take as Directed (Dec 09, 2014 -approx.)Biotin (5000 mcg) Capsule Oral daily (Start Date - unknown)CV S Iron 1 Tablet (of 325 (65 fe) mg) Oral daily (Start Date - unknown)Calcium 1 Tablet Oral daily (Start Date - unknown)Furosemide 1 Tablet (of 20 mg) Oral daily (Start Date - unknown)Isosorbide Dinitrate ER 1 Tablet (of 40 mg) Tablet, controlled release Oraldaily (Start Date - unknown)Loperamide HCl 0.5 Tablet (of 2 mg) Capsule Oral b.i.d. (Start Date - unknown)Losartan Potassium 50 mg Tablet Oral daily (Start Date - unknown)Vitamin C 1,000 mg Tablet Oral b.i.d. 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 She is an active drinker.[facility]. [facility]WR[facility]Ms. LAWRENCE reports the following support systems: lives alone. Her dietconsists of regular meals. She indicates her activity level as: occasionalexercise. Rare Alcohol use.Family History:Ms. LAWRENCE's mother is : cancer history consists of Rectal cancer atage 90. Ms. LAWRENCE's father is : cardiovascular disease, and stroke. 5brothers- 2 had leukemia, 1 had acute leukemia at age 69., the other was 92.Brother with prostate cancer with mets to bone.Review of Systems:Constitutionalwt lossAllergic/ImmunologicNo reactions.Eyesstill has blurry vision with reading.ENMTHearing aids.EndocrineNo diabetes, thyroid disease or hormone replacement. No hot flashes or nightsweats.Hematologic/Lymphaticeasy bruising. The patient denies any tender or palpable lymph nodes.RespiratoryNo dyspnea on exertion, chest pain, cough or hemoptysis.Stops before gettingSOB.CardiovascularNo anginal chest pain, palpitations or orthopnea.GastrointestinalNo GI bleeding, or constipation. No change in bowel habits, no heartburn orearly satiety.Nausea and vomiting with milk. Diarrhea controlled with ImodiumGenitourinary (F)No abnormal genital masses. No hematuria, hesitancy, incontinence, vaginalbleeding, discharge or other problems with urination.Musculoskeletalhip joint pain-uses Lidocaine patches , pain in center of backIntegumentarypsoriasisNeurologicnumbness in right hand, alwaysPsychiatricif stays busy all day sleeps through the night.Vital Signs:Performed on Dec 07, 2020 12:71Gflqtj36.00 zpOoszpt712 lbs(LOW)BSA (derived)1.59 sq.mBMI25.65Xdadehtnjjo37.8 UKxirl62 /idtVbomdmagugg24 /hrwHH439/68Pulse Oximetry (O2 Sat)95 %(LOW)Performance Status:1 - No physically strenuous activity, but ambulatory and able to carry outlight or sedentary work (e.g. office work, light house work). (ECOG)Physical Exam:ConstitutionalNormal - Alert, cooperative, oriented. Mood and affect appropriate. Appearsclose to chronological age. Well nourished. Well developed.HeadNormal - Normocephalic; no scars.EyesNormal - Conjunctivae and sclerae are clear and without icterus. Pupils arereactive and equal.ENMTNormal - Sinuses are nontender. No oral exudates, ulcers, masses, thrush ormucositis. Oropharynx clear. Tongue normal.NeckNormal - Supple without masses or thyromegaly. No jugular venous distension.Hematologic/LymphaticNormal - No petechiae or purpura. No tender or palpable lymph nodes in thecervical, supraclavicular, axillary or inguinal area.RespiratoryNormal - Lungs are clear to auscultation without rhonchi or wheezing.CardiovascularAbnormal - Regular rate and rhythm of heart . Systolic ejection murmur 3/6lsb.ChestNormal - Chest is symmetric without chest wall deformities.AbdomenNormal - Non-tender, non-dist ended, no masses, ascites or hepatosplenomegaly.Good bowel sounds. No guarding or rebound tenderness. No pulsatile masses.Back/SpineNormal - No kyphosis, scoliosis, compression fractures. Non-tender topalpation.ExtremitiesNormal - No visible deformities, no cyanosis, clubbing or edema. Pulses 4+ andequal bilaterally.MusculoskeletalNormal - No tenderness or swelling, normal range of motion without obviousweakness.IntegumentaryNormal - No rashes, scars, or lesions suggestive of malignancy.NeurologicNormal - No sensory or motor deficits, normal cerebellar function, normalgait, cranial nerves intact.Ps ychiatricNormal - Alert and oriented times three. Coherent speech. Verbalizesunderstanding of our discussions today.Laboratory:Test performed on Oct 10, 2020 12:08WBC3.28 x10E3/uL(LOW)RBC2.12 x10E6/uL(LOW)HGB7.5 g/dL(LOW)HCT23.2 %(LOW)XCS183.4 fL(HIGH)MCH35.4 pg(HIGH)MCHC32.3 g/dL(LOW)RDW16.8 %(HIGH)Platelet Qqkas615 x10E3/uLMPV11.7 fl(HIGH)Manual Segs %40 %Manual Bands %1 %(LOW)Manual Lymphs %42 %Manual Monos %4 %Manual Eos %10 %(HIGH)Manual Basos %2 %Metamyelocytes %1 %RBC Morphology1+ ANISOCYTOSIS1+ OVALOCYTES1+ MACROCYTOSIS1+ HYPOCHROMICRBC MORPHOLOGY EXPECTED RESULTS:NORMAL = NORMOCHROMIC, NORMOCYTIC CELLSAny findings other than Normal will be reported and areconsidered Abnormal. The significance of Abnormalfindings are to be clinically correlated by the provider.Test performed on Oct 10, 2020 12:05Blood TypeO NEGATIVECrossmatchUNIT NUMBER: [id number]: YPRODUCT: LEUKO REDUCED RED BLOOD CELLSSOURCE: [facility] TYPE: O NEGATIVEVOLUME: 313MLCROSSMATCH COMPONENTS:UNIT NUMBER: [id number]: YPRODUCT: LEUKO REDUCED RED BLOOD CELLSSOURCE: [facility] TYPE: O NEGATIVEVOLUME: 400MLCROSSMATCH COMPONENTS:UNIT NUMBER: [id number]: YPRODUCT: LEUKO REDUCED RED BLOOD CELLSSOURCE: [facility] TYPE: O NEGATIVEVOLUME: 301MLCROSSMATCH COMPONENTS:Type & ScreenBLOOD TYPE O NEGATIVEANTIBODY SCREEN NEGATIVEBLOOD TYPE O NEGATIVEANTIBODY SCREEN NEGATIVEOther test results are not available for this patient.Impression:#1. Essential thrombocytosis.#2. Hypertension.#3. History of stroke.#4. Use of ihch-awk-sywuscx supplementsPlan:#1. Essential thrombocytosis-Platelets on most recent CBC are NORMALContinue anagrelide 0.5 milligrams 3 times daily. Platelet count is adequatelycontrolled.#2 anemia-The patient presents 2 months after transfusion with hemoglobin downagain to 8. She does not seem severely symptomatic however she is nowscheduled for heart valve replacement.Her labs do not reveal any evidence offolic acid, vitamin B12 or iron deficiency.Both patient and daughter are awarethat the next step would be to do a bone marrow aspirate and biopsy carmelo eciallyin view of the patient's leukopenia which suggests possible myelodysplasticsyndrome.However they would like to wait for this until the patient hascompleted her heart valve replacement and I feel that this is reasonable. Idid discuss with them that aortic stenosis can sometimes cause GI bleeding butit does not usually cause leukopenia.Plan now is to transfuse 2 units of packed RBCs. She will have her type andcrossmatch done today and will come in tomorrow for transfusion over 6 hours.3. Bilateral lung crackles on exam patient denies any dyspnea or cough.Willhold off on evaluation for now. Patient already has follow-up withcardiologist Dr. Holland.4. New onset of leukopenia and neutropenia unclear etiology.Patientcontinueswith worsening leukopenia and Neutropenia. As noted above patient would liketo defer bone marrow aspirate and biopsy.Reviewed the results of her flow cytometry which shows no immunophenotypicabnormalities. There was a mixture of CD4 and CD8 positive T cells which wasfelt to be reactive.5. Bleeding disorder PT and PTT were normal. Fibrinogen level was normal.Thrombin time was never done. Platelet function analysis was performed butonly the collagen epinephrine time has been provided which was prolonged.As the patient's bleeding problems have improved off aspirin that appears lowell the most likely cause of her bleeding issues. She will continue off aspirinat this time.Electronically signed by:Marli Red [facility]: Name Value Range Interpretation Code Description Data Berkley rce(s) Supporting Document(s) ID Date Data Source [id number] 12/09/2020 12:42:00 PM EDT El[facility]ar ward Name Value Range Interpretation Code Description Data Berkley rce(s) Supporting Document(s) [id number] TRANSFUSED PRODUCT: PACKED CELLS CO UNT: 2 [facility] ID Date Data Source [id number] 12/09/2020 12:42:00 PM EDT Eliazar ward *Hgb < 9.0g/dL with Chronic Transfusion Therapy YIrradiated? NCMV Negative? NTransfuse 2units over 2UNIT NUMBER: [id number]: YPRODUCT: LEUKO REDUCED RED BLOOD CELLSSOURCE: [facility] TYPE: O NEGATIVEVOLUME: 337MLCROSSMATCH COMPONENTS:0UNIT NUMBER: [id number]: YPRODUCT: LEUKO REDUCED RED BLOOD CELLSSOURCE: [facility] TYPE: O NEGATIVEVOLUME: 346MLCROSSMATCH COMPONENTS:0 Name Value Range Interpretation Code Description Data Berkley rce(s) Supporting Document(s) ID Date Data Source [id number] 12/09/2020 12:42:00 PM [facility] *Hgb < 9.0g/dL with Chronic Transfusion Therapy YIrradiated? NCMV Negative? NTransfuse 2units over 2 Name Value Range Interpretation Code Description Data Berkley rce(s) Supporting Document(s) BLOOD TYPE O NEGATIVE N [facility] ANTIBODY SCREEN NEGATIVE N [facility] al ID Date Data Source [id number] 12/07/2020 02:12:00 PM EDT [facility] Name Value Range Interpretation Code Description Data Berkley rce(s) Supporting Document(s) WBC 2.48 x10E3/uL 4.0-10.5 [facility] RBC 2.07 x10E6/uL 4.20-5.40 L [facility] Hemoglobin 7.4 g/dL 12.0-16.0 PL [facility] Hematocrit 22.2 % 37.0-47.0 L [facility] MCV 107.2 fL 81.0-99.0 H [facility] MCH 35.7 pg 27.0-31.0 H [facility] MCHC 33.3 g/dL 32.7-35.6 [facility] RDW 20.0 % 11.5-14.0 H [facility] Platelet count 178 x10E3/uL 150-450 N [facility] ital MPV 11.4 fl 6.9-9.5 H [facility] SEG. NEUTROPHIL 43 % 34-64 N [facility] BAND 1 % 5-11 L [facility] LYMPHOCYTE 40 % 25-45 [facility] EOSINOPHILS 7 % 0-7 [facility] MONOCYTES 9 % 2-10 [facility] PLATELET MORPH 1+ PLT SIZE VARIES [facility] PLATELET MORPHOLOGY EXPECTED RESULT:NORM AL = NO REMARKABLE MORPHOLOGYAny findings other than Normal will be reported and areconsidered Abnormal. The significance of Abnormal findingsare to be clinically correlated by the provider. 1+ ANISOCYTOSIS1+ MACROCYTOSIS1+ HYPOCHROMICRBC MORPHOLOGY EXPECTED RESULTS: NORMAL = NORMOCHROMIC, NORMOCYTIC CELLSAny findings other than Normal will be reported and areconsidered Abnormal. The significance of Abnormalfindings are to be clinically correlated by the provider. ID Date Data Source [id number] 12/06/2020 11:44:00 AM EDT [facility] Value Range Interpretation Code Description Data Berkley rce(s) Supporting Document(s) Folate [Mass/volume] in Serum or Plasma >20.0 NG/ML 5.6 - 45.8 [facility] ID Date Data Source [id number] 12/06/2020 11:43:00 AM EDT [facility] Value Range Interpretation Code Description Data Berkley rce(s) Supporting Document(s) Ferritin [Mass/volume] in Serum or Plasma 518.3 ng/mL 3.0 - 105 H [facility] ID Date Data Source [id number] 12/06/2020 11:43:00 AM T [facility] Value Range Interpretation Code Description Data Berkley rce(s) Supporting Document(s) Cobalamin (Vitamin B12) [Mass/volume] in Serum or Plasma 408 PG/ML 232 - 1245 [facility] ID Date Data Source [id number] 12/06/2020 11:24:00 AM EDT [facility] Value Range Interpretation Code Description Data Berkley rce(s) Supporting Document(s) Iron [Mass/volume] in Serum or Plasma 99 UG/DL 42 - 135 [facility] Iron binding capacity.unsaturated [Mass/volume] in Serum or Plasma 78 UG/DL 112 - 347 L [facility] Iron binding capacity [Mass/volume] in Serum or Plasma 177 ug/dL 250 - 450 L [facility] Iron saturation [Mass Fraction] in Serum or Plasma 56 % [facility] ID Date Data Source [id number] 12/06/2020 11:24:00 AM EDT [facility] Name Value Range Interpretation Code Description Data Berkley rce(s) Supporting Document(s) COMPREHENSIVE METABOLIC PANEL [facility] COMPREHENSIVE METABOLIC PANEL Sodium [Moles/volume] in Serum or Plasma 140 mEq/L 134 - 153 [facility] Potassium [Moles/volume] in Serum or Plasma 4.0 mEq/L 3.6 - 5.0 [facility] Chloride [Moles/volume] in Serum or Plasma 103 mEq/L 98 - 107 [facility] Carbon dioxide, total [Moles/volume] in Serum or Plasma 28 MEQ/L 22 - 30 [facility] Glucose [Mass/volume] in Serum or Plasma 102 MG/DL 70 - 99 H [facility] BUN 27 MG/DL 7 - 21 H [facility] al Creatinine [Mass/volume] in Serum or Plasma 1.0 MG/DL 0.7 - 1.5 [facility] BUN/CREAT 27 8 - 27 [facility] al Protein [Mass/volume] in Serum or Plasma 6.4 G/DL 6.3 - 8.2 [facility] Albumin [Mass/volume] in Serum or Plasma 4.5 G/DL 3.9 - 5.0 [facility] Globulin [Mass/volume] in Serum by calculation 1.9 GM/DL 2.4 - 3.2 L [facility] A/G RATIO 2.4 0.8 - 2.0 H [facility] Calcium [Mass/volume] in Serum or Plasma 9.3 MG/DL 8.4 - 10.2 [facility] Bilirubin.total [Mass/volume] in Serum or Plasma 0.8 MG/DL 0.2 - 1.3 [facility] Alkaline phosphatase [Enzymatic activity/volume] in Serum or Plasma 50 U/L 38 - 126 [facility] Aspartate aminotransferase [Enzymatic activity/volume] in Serum or Plasma 10 U/L 5 - 40 [facility] Alanine aminotransferase [Enzymatic activity/volume] in Seru m or Plasma 6 U/L 7 - 56 L [facility] Anion gap 3 in Serum or Plasma 9.0 mmol/L 8.0 - 16.0 [facility] AGE [address] [facility] NON-AA GFR 56 mL/min [facility] sylvia AFR AMER GFR >60 [facility] Male GFR In terprentation 20-49 yrs >60 mL/min Normal 50-59 yrs >56 mL/min Normal 60-69 yrs >49 mL/min Normal 70-79yrs >42 mL/min Normal 80 and above >35 mL/min Normal Female GFR Interpretation 20-39 yrs >60 mL/min Normal 40-49 yrs >58 mL/min Normal 50-59 yrs >51 mL/min Normal 60-69 yrs >45 mL/min Normal 70-79 yrs >39 mL/min Normal 80 and above >32 mL/min Normal ID Date Data Source [id number] 12/06/2020 11:18:00 AM EDT [facility] Name Value Range Interpretation Code Description Data Berkley rce(s) Supporting Document(s) CBC W/AUTOMATED DIFF [facility] COMPLETE BLOOD COUNT Leukocytes [#/volume] in Blood by Automated count 2.4 10^3/uL 4.2 - 1 1.0 L [facility] Erythrocytes [#/volume] in Blood by Automated count 2.26 10^6/uL 4. 20 - 5.40 L [facility] Hemoglobin [Mass/volume] in Blood 8.0 g/dL 12.0 - 16.0 L [facility] Hematocrit [Volume Fraction] of Blood by Automated count 24.5 % 3 7.0 - 47.0 L [facility] Erythrocyte mean corpuscular volume [Entitic volume] b y Automated count 108.4 fL 81.0 - 101 H [facility] Erythrocyte mean corpuscular hemoglobin [Entitic mass] by Automated count 35.4 pg 27.0 - 34.0 H [facility] Erythrocyte mean corpuscular hemoglobin concentration [Mass/volume] by Automated count 32.7 g/dL 31.0 - 36.0 [facility] Erythrocyte distribution width [Ratio] by Automated count 20.5 % 11.5 - 14.5 H [facility] Platelets [#/volume] in Blood by Automated count 189 10^3/uL 150 - 45 0 [facility] Platelet mean volume [Entitic volume] in Blood by Automated count 10.9 fL 7.4 - 10.4 H [facility] Neutrophils/100 leukocytes in Blood by Automated count 47.9 % 37. 0 - 80.0 [facility] Lymphocytes/100 leukocytes in Blood by Manual count 30.5 % 25.0 - 40.0 [facility] Monocytes/100 leukocytes in Blood by Automated count 12.7 % 3.0 - 8.0 H [facility] Eosinophils/100 leukocytes in Blood by Automated count 8.1 % 0.0 - 7.0 H [facility] Basophils/100 leukocytes in Blood by Automated count 0.0 % 0.0 - 2.5 [facility] %IG 0.8 % 0.0 - [facility] Neutrophils [#/volume] in Blood by Automated count 1.13 10^3/uL 2.00 - 6.90 L [facility] Lymphocytes [#/volume] in Blood by Automated count 0.72 10^3/uL 0.60 - 3.40 [facility] Monocytes [#/volume] in Blood by Automated count 0.30 10^3/uL 0.00 - 0.90 [facility] Eosinophils [#/volume] in Blood by Automated count 0.19 10^3/uL 0.00 - 0.70 [facility] Basophils [#/volume] in Blood by Automated count 0.00 10^3/uL 0.00 - 0.20 [facility] #IG 0.02 10^3/uL 0.00 - 0.10 [facility] #NRBC 0.00 10^3/uL 0.00 - 0.00 [facility] MANUAL DIFF SEE BELOW [facility] Segmented neutrophils/100 leukocytes in Blood by Manual count 40 % 37 - [address] [facility] %LYMPH 42 % 25 - 40 H [facility] %MONO 6 % 3 - 8 [facility] %EOS 10 % 0 - 7 [facility] GIANCARLO LYM 2 % [facility] RBC MORPH SEE BELOW [facility] Anisocytosis [Presence] in Blood by Light microscopy 1+ MANA L: NONE SEEN A [facility] Macrocytes [Presence] in Blood by Light microscopy 1+ NORMAL: NONE SEEN A [facility] HYPO 1+ NORMAL: NONE SEEN A [facility] { SICKLE CELL (NORMAL: NONE SEEN ) Platelet adequacy [Presence] in Blood by Light microscopy NORMAL NORMAL: NORMAL [facility] COMMENT: ID Date Data Source [id number] 11/21/2020 05:19:03 PM EDT [place] [id number] Name: ELIZABETH DUARTEB: 1935Sex: FOrdering Provider: GRACIE Alejandre Prov: GRACIE Loera Provider: Procedure Performed: / US CAROTID BILATERALExam Date: 11/21/2020 16:24MRN: [id number] Number: [id number] Class: OutpatientAccount #: [id number] for Exam: TAVR protocolTechnique: Duplex sonography was performed.Comparison: NoneFindings: The right and left carotid systems were examined by Doppler sonography. Carotid stenosis measurements were performed using the NASCET method.RIGHT CAROTID SYSTEM:Common Systolic Velocity 86 cm/s End-Diastolic Velocity 17 cm/sInternal Systolic Velocity 103 cm/s End-Diastolic Velocity 30 cm/sExternal Systolic Velocity 60 cm/s End-Diastolic Velocity 6 cm/sVertebral Artery 123 cm/s Antegrade flowICA/CCA Systolic Ratio = 1.2 Internal Carotid Artery Stenosis: Less than 50%.LEFT CAROTID SYSTEM:Common Systolic Velocity 104 cm/s End-Diastolic Velocity 30 cm/sInternal Systolic Velocity 118 cm/s End-Diastolic Velocity 34 cm/sExternal Systolic Velocity 64 cm/s End-Diastolic Velocity 8 cm/sVertebral Artery 139 cm/s Antegrade flowICA/CCA Systolic Ratio = 1.1 Internal Carotid Artery Stenosis: Less than 50%.IMPRESSION: Less than 50% ICA stenosis bilaterally.Report electronically signed by: NBA DONIS On 11/21/2020 5:19 PMWorkstation ID: [id number] Name Value Range Interpretation Code Description Data Berkley rce(s) Supporting Document(s) ID Date Data Source [id number] 11/21/2020 04:24:[address] [facility] INFORMATIONPatient MRN Name Date of Age Gend*PT [id number] Elizabeth Lawrence 1935 84 years F HOPPT Location Admission Date/Time Visit ID Attending ProviderCV-27 11/21/20 1122 --- Saad Villareal MD([id number]) EPI ID CSN Admitting Provider [id number] aSad Villareal MD([id number])Cardiovascular and Thoracic Surgery HISTORY & PHYSICAL1Chief Compliant / Reason for consultation:Elizabeth Lawrence is a 84 years old lady presenting with fatigue, dyspnea, andfound to have severe Symptomatic Valvular Aortic Stenosis. She denies any chestpain, dizziness, passing out. She has had some ankle swelling which has resolvedwith water pill.Past Medical History:Diagnosis Date Arthritis 05/13/2019 Complete uterovaginal prolapse 10/29/2007 Created by Conversion DVT (deep vein thrombosis) in 05/13/2019 Essential hypertension 05/13/2019 External hemorrhoids 10/29/2007 Created by Conversion Fecal incontinence 05/04/2013 Gastroesophageal reflux disease without esophagitis 05/13/2019 Nonrheumatic aortic valve stenosis 05/13/2019 Small bowel obstruction 05/13/2018Past Surgical History:Procedure Laterality Date [facility].Social History:Social HistorySocioeconomic History Marital status: Spouse n bhargavi: Not on file Number of children: Not on file Years of education: Not on file Highest education level: Not on fileOccupational History Not on fileTobacco Use Smoking status: Never Smoker Smokeless tobacco: Never UsedVaping Use Vaping Use: Never usedSubstance and Sexual Activity Alcohol use: Yes Drug use: Never Sexual activity: Not on fileOther Topics Concern Not on fileSocial History Narrative Not on fileSocial Determinants of HealthFinancial Resource Strain: Difficulty of Paying Living Expenses:Food Insecurity: Worried About Running Out of Food in the Last Year: Ran Out of Food in the Last Year:Transportation Needs: Lack of Transportation (Medical): Lack of Transportation (Non-Medical):Physical Activity: Days of Exercise per Week: Minutes of Exercise per Session:Stress: Feeling of Stress :Social Connections: Frequency of Communication with Friends and Family: Frequency of Social Gatherings with Friends and Family: Attends Mandaeism Services: Active Member of Clubs or Organizations: Attends Club or Organization Meetings: Marital Status:Intimate Partner Violence: Fear of Current or Ex-Partner: Emotionally Abused: Physically Abused: Sexually Abused:Allergies:Patient has no known drug allergies.Medications:Current Facility-Administered Medications: heparin (porcine) injection, , , PRN, Amelia Jacome MD, 5,000 Units at11/21/20 1445 iopamidol (ISOVUE-370) 76 %, , , PRNAmelia MD, 50 mL at 456 lidocaine 1 % injection, , , PRNAmelia MD, 5 mL at 11/21/20 1430 normal saline flush 0.9 % injection 3 mL, 3 mL, Intravenous, Q8H Darrion LANE MD normal saline flush 0.9 % injection 3 mL, 3 mL, Intravenous, Q8H Darrion LANE MD normal saline flush 0.9 % injection 3 mL, 3 mL, Intravenous, Per Protocol,Saad Villareal MD sodium chloride 0.9% (NS) infusion, 100 mL/hr, Intravenous, Continuous, Minnie Carrion MD, Last Rate: 100 mL/hr at 11/21/20 1217, 100 mL/hr at 11/21/20 1217 sodium chloride 0.9% (NS) infusion, , Intravenous, Continuous, Amelia Jacome MD verapamil (ISOPTIN) injection, , , PRN, Amelia Jacome MD, 5 mg at [id number] of SystemsReview of Systems - History obtained from the patientGeneral ROS: positive for - fatigueRespiratory ROS: positive for - shortness of breathCardiovascular ROS: positive for - dyspnea on exertionObjective:Physicial Exam:Vitals: 11/21/20 1541BP: 137/73Pulse: 80Resp:Temp:SpO2: 95%Cardio: Normal rate/rhythmRespiratory: Normal Respiratory effort / Breath soundsNeuro: Grossly NormalPsych: Alert/oriented, Normal affectNo Ankle edemaPREVIOUS WEIGHTS:Wt Readings from Last 10 Encounters:11/21/20 59.3 kg (130 lb 11.7 oz)10/26/20 59.4 kg (131 lb)09/21/20 63 kg (139 lb)07/13/20 63 kg (139 lb)10/14/19 59 kg (130 lb)10/14/19 59 kg (130 lb)05/13/19 59 kg (130 lb)Lab ResultsComponent Value Date WBC 2.60 10/27/2020 HG B 10.4 (A) 10/27/2020 HCT 32.00 (A) 10/27/2020 PLT 162 10/27/2020ab ResultsComponent Value Date NA 141 10/27/2020 K 4.4 10/27/2020 CL 106 10/27/2020 CO2 28 (A) 10/27/2020ab ResultsComponent Value Date BUN 24 (A) 10/27/2020ab ResultsComponent Value Date CREATININE 0.90 10/27/2020IOBRIEFIntake/Output Summary (Last 24 hours) at 11/21/2020 1608Last data filed at 11/21/2020 1459Gross per 24 hourIntake 50 mlOutputNet 50 mlRADIOLOGY RESULTS:LATEST RADIOLOGY RESULTS:Cardiac catheterizationResult Date: 1RHC - PCW mean 14 19 a - wave, 17 v-wave PA 37/16/25 RV 37/5/10 RA mean 6 Sat -SVC - 58.7 Pa 62.5 AO - 93.4 CO 5.64 l/min CI 3.63 PVR 2.7 Conclusions - 1.Normal Coronaries 2. Severe Aortic Stenosis with ANUSHKA 0.73 3. Mild pulmonaryhypertension. 4. Elevated LVEDP 20 5. No LV gram Recommendation - Evaluation forAVR Case discussed with Dr. Deshpande who will see her in Valve clinic. Nocomplications, estimated blood loss minimal.Echo Transthoracic (TTE)Reading physician: Michael Holland MD Ordering physician: Burt Dominique NP Studydate: 09/21/20Patient InformationPatient NameElizabeth Lawrence ([id number]) Legal SexFemale DOB14Reason for Examshortness of breath with activityDx: Nonrheumatic aortic valve stenosis [I35.0 (ICD-10-CM)]; Essentialhypertension [I10 (ICD-10-CM)]; Shortness of breath on exertion [R06.02(ICD-10-CM)]Interpretation SummaryLeft ventricular systolic ejection fraction is normal, estimated at 60 to 65%.There is moderate mitral annular calcification. The left atrium is mildlydilated, 4.5 cm. Mild to moderate mitral stenosis. Moderate mitralregurgitation.Moderate tricuspid regurgitation. Moderate pulmonary hypertension present. Theright atrium is mildly dilated.There is calcification with reduced excursion of the aortic valve present.Severe aortic stenosis. Trace aortic insufficiency is present.Grade I (mild) left ventricular diastolic dysfunction consistent with impairedrelaxation. Normal wall thickness observed.Echocardiographic FindingsLeft Ventricle The left ventricular cavity is normal. Normal (55-65%) ejectionfraction. Wall motion is normal. Grade I (mild) left ventricular diastolicdysfunction consistent with impaired relaxation. normal wall thickness observed.Right Ventricle The right ventricle is normal. There is normal wall thickness.Wall motion normal.Left Atrium The left atrium is mildly dilated.Right Atrium The right atrium is mildly dilated.IVC/SVC Inferior vena cava is dilated.Mitral Valve There is moderate mitral annular calcification. Mild to moderatestenosis. Moderate regurgitation.Tricuspid Valve The tricuspid valve is normal. No stenosis. Moderateregurgitation. Moderate pulmonary hypertension present.Aortic Valve There is calcification with reduced excursion of the aortic valvepresent. Severe stenosis. Trace aortic insufficiency is present.Pulmonic Valve The pulmonic valve was not well visualized. No stenosis. Noregurgitation. Pulmonary artery not well visualized.Ascending Aorta no aneurysm is present.Pericardium No pericardial effusion.Study DetailsStudy Details A complete 2D echocardiogram with color flow and spectral Dopplerwas performed. During the study the all views view were captured. Overall thestudy quality was good.Assessment / Impression / Plan:Elizabeth Lawrence presents with severe symptomatic Valvular Aortic Stenosis. NYHAClass III. I've gone over this diagnosis with her. We've discussed treatmentoptions including surgical Aortic Valve Replacement and Transcatheter AorticValve Replacement (TAVR).We've gone over TAVR procedure, including risks of bleeding, infection, stroke,kidney failure, lung complications including pneumonia and prolonged supportwith breathing machine, possibility of needing a pacemaker and possibility ofdying. She understands this and would like to go ahead with TAVR procedure. Thiscase will be reviewed at the TAVR/Structural Heart Conference.This medical record reflects the history of present illness as obtained bymyself in discussion with the patient.Kurt Weller MD [facility] FACSCardiovascular Thoracic Yeh rgery11/21/2020, 4:10 PM Name Value Range Interpretation Code Description Data Berkley rce(s) Supporting Document(s) ID Date Data Source [id number] 11/21/2020 03:34:[address] [facility] NT INFORMATIONPatient MRN Name Date of Age Gend*PT [id number] Elizabeth Lawrence 1935 84 years F HOPPT Location Admission Date/Time Visit ID Attending ProviderCV-27 11/21/20 1122 --- Saad Villareal MD([id number]) EPI ID CSN Admitting Provider [id number] Saad Villareal MD([id number])ADMISSION HISTORY AND PHYSICALName: lEizabeth Lawrence Gender: femaleDate of : 1935 Age: 84 yearsDate/Time of Admit: 11/21/2020 11:22 AM Code Status: Full CodePrimary Care Provider / Referring Physician: CHITO BOWDEN MDInformant:Current HistoryHPI:84 yo female with history of DVT previously on eliquis which was subsequentlystopped due to drop in HB/HCT. She also has hx of thrombocytpenia, HTN, HLD, andnewly diagnosed Severe Aortic stenosis (peak4.04 mean gradient >40mmhg) whopresents for right and left heart cath. She currently has no symptoms and ishere with her daughter. Patient took plavix yesterday and was given aspirin thismorning.Review of Systems:10 pt review of systems was negative except what is noted in the hpi.Past HistoryPast Medical History:Diagno sis Date Arthritis 05/13/2019 Complete uterovaginal prolapse 10/29/2007 Created by Conversion DVT (deep vein thrombosis) in 05/13/2019 Essential hypertension 05/13/2019 External hemorrhoids 10/29/2007 Created by Conversion Fecal incontinence 05/04/2013 Gastroesophageal reflux disease without esophagitis 05/13/2019 Nonrheumatic aortic valve stenosis 05/13/2019 Small bowel obstruction 05/13/2018Past Surgical History:Procedure Laterality Date HIP [facility].Social HistorySocial History Narrative Not on fileSocial HistorySocioeconomic History Marital status: Spouse name: Not on file Number of children: Not on file Years of education: Not on file Highest education level: Not on fileOccupational History Not on fileTobacco Use Smoking status: Never Smoker Smokeless tobacco: Never UsedVaping Use Vaping Use: Never usedSubstance and Sexual Activity Alcohol use: Yes Drug use: Never Sexual activity: Not on fileOther Topics Concern Not on fileSocial History Narrative Not on fileSocial Determinants of HealthFinancial Resource Strain: Difficulty of Paying Living Expenses:Food Insecurity: Worried About Running Out of Food in the Last Year: Ran Out of Food in the Last Year:Transportation Needs: Lack of Transportation (Medical): Lack of Transportation (Non-Medical):Physical Activity: Days of Exercise per Week: Minutes of Exercise per Session:Stress: Feeling of Stress :Social Connections: Frequency of Communication with Friends and Family: Frequency of Social Gatherings with Friends and Family: Attends Mandaeism Services: Active Member of Clubs or Organizations: Attends Club or Organization Meetings: Marital Status:Intimate Partner Violence: Fear of Current or Ex-Partner: Emotionally Abused: Physically Abused: Sexually Abused:Medications and AllergiesALLERGIES/SENSITIVITIES: No Known Drug AllergiesScheduled Meds: normal saline flush 3 mL Intravenous Q8H DOMINGO normal saline flush 3 mL Intravenous Q8H DOMINGO normal saline flush 3 mL Intravenous Per ProtocolContinuous Infusions: sodium chloride 100 mL/hr (11/21/20 1217) sodium chloridePRN Meds:.heparin (porcine), iopamidol, lidocaine, verapamilPhysicalBlood Pressure: BP: 165/78 Pulse: Heart Rate: 82Temperature: Temp: 97.7 F Respirations: Resp: 16Admission Weight: Weight: 59.3 kg (130 lb 11.7 oz) O2 Saturation: SpO2: 97 %Today's Weight: Weight: 59.3 kg (130 lb 11.7 oz)Physical IcpqBQMa5Csoo: No JVDHeart: Reg S1S2, 0/6 MLungs: CTA bilaterallyAbdomen: ND, +BS, Soft, NTExt: No clubbing, cyanosis, edemaDiagnostics echo : reviewed and abnorml.Assessment & PlanIndication:Pre- AVR workup.Risks and benefits of the procedure were discussed with the patient. Risksinclude but are not limited to bleeding, infection, stroke, ME, arrhythmia, needfor emergency surgery, and KEIRA. Patient understands the risk and is agreeableto proceed with the procedure.Aspirin: yesPlavix: yes Name Value Range Interpretation Code Description Data Berkley rce(s) Supporting Document(s) ID Date Data Source [id number] 11/21/2020 03:19:00 PM EDT [facility] Name Value Range Interpretation Code Description Data Berkley rce(s) Supporting Document(s) &PDF [facility] WGQSKa1jUiALNxWg48/EJJpeUGSgz3IzGSnkTAe0PIjzRISgB6PnaMhjRL8VF01XBDhDBOFOUA8UZE5j oRX [file] AgICAgICAgICAgICAgICAgICAgICAgICAgICAgICAg ZLOhHYFoJKXiEDQnRESxRUXuGECaFXAdWFZbGLDnUIJeTOJbTZGpUIKaBALrTSTbBQNbQOYjIAWeUX7K ICAgICAgICAgICAgICAgICAgICAgICAgICAgICAgICAgICAgICAgICAgICAgICAgICAgICAgICAgICAg ICAgICAgICAgICAgICAgICAgICAgICAgICAgICAgIC CxSZUmZWVwEY8IDIKzMOKjNPIwXMRaZKPnQZFhZKFdHKFvCPGyAWXtIWFcNMHyJLOpLRSyKXMcKQKnWP NtXRQvNPSeDWEiPXTlIHSkPYDoRTKeBHZyJTRjSKOgLPEpUYMmDRMdXLBuVKFaCQYuSB2QIPNyCMKuGH AgICAgICAgICAgICAgICAgICAgICAgICAgICAgICAg ICAgICAgICAgICAgICAgICAgICAgICAgICAgICAgICAgICAgICAgICAgICAgICAgICAgICAgICAgICAg SP6ZVDTwMAXoYWBoDRBqWPKbWGXaMWLxDSWuVMEeAQYiREFiSTRzFBNoXKDvYLLxANErEEUdLRVzLFVh ICAgICAgICAgICAgICAgICAgICAgICAgICAgICAgIC FmWWTnSXCmOPFgXX2IILCwACNlRYXaGUHePEIgVHAhSABtBELtKCKhMCCeMZElILTxTKOpLQYgZDMoGC SpOWKpYOVcTKHoTATjKINoXGDgJCIsTDCgVBWoLYArXSHlWJIlZFZfZBBhWHUyQNJsQPTwRU9ZZXHqLB AgICAgICAgICAgICAgICAgICAgICAgICAgICAgICAg ICAgICAgICAgICAgICAgICAgICAgICAgICAgICAgICAgICAgICAgICAgICAgICAgICAgICAgICAgICAg ORFxGJ3EMOXrFHHiKKZuVZLjKLKyYNTuLREqPYWyKOChUIPbPEAxUJObWPCiIXWlEPPjAAXtYRWbYEYd ICAgICAgICAgICAgICAgICAgICAgICAgICAgICAgIC HyHJXbJUEqKKRfSATgYX5JAZGpAHFiWTQmALNaCAEbKNSzWBWoVJTdMLPgYVOvIHCyVTSgXMNcJTIcKR NdZFTuVLFoDRQoWUDcPOWbQQUkZEFcKULmZICcUSGvDMPgASDvJSPtGNHzSLCqRLWzXQQfKWQiNV4SUZ AgICAgICAgICAgICAgICAgICAgICAgICAgICAgICAg ICAgICAgICAgICAgICAgICAgICAgICAgICAgICAgICAgICAgICAgICAgICAgICAgICAgICAgICAgICAg OLDeDYUsHA4QEP08gNHym3F6QNYbRW2xsfd/Gp5OKCaqjqBtbKZqXB4CNgKoFW1myo5LOsLvFP1tyu2Y NQwPUgHjX8A5uNXtDTEbYVSTVuPeW45lLCwjGg07CM loHLUuZeZqZZl8Je9UMoQeP5coGWWwAoJ0FMNgVzG6PRAiHpF5CZRrFxOrAKPhXDXkPT1WOVDnH105eo TbBD3PPj3FBfEaPD3ekq4CUmTgGWSxTysMNjd5NYqnAL2HpTHnfKFoZSPwMHQDNjWnZ0plb3RsPaRhVO BNBDuwNB7Hv1BdeIPjMDx+Yq2VAF3qw1MoMUpgUBEp TF8hmg9QOUeMWkQcB2KmrFllDNnkcHmjovWvCR5YRDFbGURtxXIdKBukPLIWLR0LEFsoUTOzVIWqhdGu rPEpTGltBD3ROSWbhdVaAcDmALGXAHy+Uy7EMT3sg0SaWMtuBbSvAY2axt8DKSnMDhNtL5J7yANaM1Y9 WDumJh3DESTePPCfRbUqTQIQAXpuDZ5CGL6wtaC5RJ 0WhBOuKNArMNUlaOSjNAj7I32xfFFiDUhjXJ2VDTS+Antonette+Wf5SDNDkQPVhMCLvZqBgUQJHWwBuW1KkC3 NLu5QlX7TvOW12mAeulsTbUKniCR6TCR1rLRPeBMFQQB1DtEKawM8rheChWGNgRGFCOqUfQ20zlZJdRH RmXPHzLWAtNx7HHIWtV5HuykGmiGdckaEvOPPoEIPP BA9PBCcqauUbzRUayIguRM68fTogJF9ZCq3YBcMhBR9vdm5ZmMUzUy0FCUZwFt8CKBPlANVeYIScLIB1 VOJqMwDfEIkhPAApBLRyHOA8LUXyCPUeRL0FZzTxDJJyFdViJZvpDAUaOXFrrb3FVTSmUHQjLOvlBkQq JXEeSKQuRKqzNLHiHXNcOMrlRVByZIHtKP4WGiJhJY TpFKIwPOSeACXjPNOlqe2SSYQvXDMwMnIeYHKeYKUwWNJlHYdnKZToDZS5VcR8GZLzLTNcNX2TByVyZM IpUVC7DkesAMZnENGmhp6CTHOqLUItAqQ0GxUmBUNwKPLjILhgTYKwZEH8TNC5RYFsTPDfAC1VBdCvSH AkSSqlNKbjLILbIIKoio4VQASvPNUpAwVtMTDwLXGa YJDxTEwvEVXvBRV6CVD3BCJzUDTrGS6VSqYdLYEiWQd8TjUwKCNcSRRoyv6SQPFiQNAiUMt0ENCmNSMh YHVoCPgmZLCbHNI2GEK4DXKgSLWiNU1LSyKeRIXoJJVaIJOpGMAsXNFimq2FYASvYHXzJVQ8KTNbPUDu KTXmSXgbUAHsBJEmYRb9HVCmGFQwRV3CUhMzXWOyHS G8SJYwBPHqEVAuqd5KBWJeJVEiSJA5FHUaWOTfHPDlNEjuIOTxJEUgLXW0DIOsKMVcXB7RJdGfIKLbSx Q7TJUqKHRqGZIbhh7CCMXrLAEtWzO0OtYiOOErSYXoQJzhQKKbGXNdYPS2DTCfOFWyTU8IMgElUAYqJb LeSHQuTEPxNWTbxf4AnTCrsBjpvu7GZYcYBw0OoUfs SEE0LDkcJk1xhAHbGqPoHSIJZu5JsyJhSRRtFTOWLTnpEXGzTAKrVaRuQ0OtFvGuSotoHhC0ZTU0HUN0 KMIxAlf9KCJhNiE2VmU3KXL5ILMnDBE4D8IrTXGkObasQUM4FGT1PBraWSU+YL2nQXy+Pw9Nw0JbfsJ9 cuOvWZlaUcQ7Oi0FRYEJX2QRFr== ID Date Data Source [id number] 11/21/2020 12:31:58 PM EDT [facility] Name Value Range Interpretation Code Description Data Berkley rce(s) Supporting Document(s) EKG [facility] XLBJVp4zMvMGKiVwy6EgDkFdHJAfUT7ttek0C0D5hOAuU2WkgSIks7akH0GkQ3XxJZRqCJRDVI7LkYYx jb2 [file] ID Date Data Source [id number] 11/09/2020 04:48:[address] [facility] NT INFORMATIONPatient MRN Name Date of Age Gend*PT [id number] Georgina Lawrenceann 1935 84 years F ---PT Location Admission Date/Time Visit ID Attending Provider --- --- --- --- EPI ID CSN Admitting Provider [id number] ---Addended by: BURT DOMINIQUE on: 11/09/2020 04:48 PM Modules accepted: Orders Name Value Range Interpretation Code Description Data Berkley rce(s) Supporting Document(s) ID Date Data Source [id number] 10/27/2020 09:05:00 AM EDT [facility] Name Value Range Interpretation Code Description Data Berkely rce(s) Supporting Document(s) CVE PANEL [facility] al LIPID PANEL Cholesterol [Mass/volume] in Serum or Plasma 135 MG/DL 131 - 200 [facility] Deprecated Triglyceride [Mass/volume] in Serum or Plasma 58 MG/DL 3 5 - 160 [facility] HDL 53 MG/DL 29 - 86 [facility] al Cholesterol in LDL [Mass/volume] in Serum or Plasma by Direc t assay 81 mg/dL 65 - 175 [facility] Cholesterol.total/Cholesterol in HDL [Mass Ratio] in Serum o r Plasma 2.5 3.2 - 4.4 L [facility] LDL/HDL 1.53 1.47 - 3.22 [facility] ital CVE RISK CHOL/HDL LDL/HDLMEN: 1/2 AVERAGE 3.43 1.00 AVERAGE 4.97 3.55 2X AVERAGE 9.55 6.25 3X AVERAGE 23.99 7.99WOMEN: 1/2 AVERAGE 3.27 1.47 AVERAGE 4.44 3.22 2X AVERAGE 7.05 5.03 3X AVERAGE 11.04 6.14 ID Date Data Source [id number] 10/27/2020 09:05:00 AM EDT [facility] Name Value Range Interpretation Code Description Data Berkley rce(s) Supporting Document(s) COMPREHENSIVE METABOLIC PANEL [facility] COMPREHENSIVE METABOLIC PANEL Sodium [Moles/volume] in Serum or Plasma 141 mEq/L 134 - 153 [facility] Potassium [Moles/volume] in Serum or Plasma 4.4 mEq/L 3.6 - 5.0 [facility] Chloride [Moles/volume] in Serum or Plasma 106 mEq/L 98 - 107 [facility] Carbon dioxide, total [Moles/volume] in Serum or Plasma 28 MEQ/L 22 - 30 [facility] Glucose [Mass/volume] in Serum or Plasma 99 MG/DL 70 - 99 [facility] BUN 24 MG/DL 7 - 21 H [facility] al Creatinine [Mass/volume] in Serum or Plasma 0.9 MG/DL 0.7 - 1.5 [facility] BUN/CREAT 27 8 - 27 [facility] al Protein [Mass/volume] in Serum or Plasma 6.0 G/DL 6.3 - 8.2 L [facility] Albumin [Mass/volume] in Serum or Plasma 4.0 G/DL 3.9 - 5.0 [facility] Globulin [Mass/volume] in Serum by calculation 2.0 GM/DL 2.4 - 3.2 L [facility] A/G RATIO 2.0 0.8 - 2.0 [facility] Calcium [Mass/volume] in Serum or Plasma 8.8 MG/DL 8.4 - 10.2 [facility] Bilirubin.total [Mass/volume] in Serum or Plasma <0.7 MG/DL 0.2 - 1.3 [facility] Alkaline phosphatase [Enzymatic activity/volume] in Serum or Plasma 51 U/L 38 - 126 [facility] Aspartate aminotransferase [Enzymatic activity/volume] in Se rum or Plasma 9 U/L 5 - 40 [facility] Alanine aminotransferase [Enzymatic activity/volume] in Seru m or Plasma 7 U/L 7 - 56 [facility] Anion gap 3 in Serum or Plasma 7.0 mmol/L 8.0 - 16.0 L [facility] AGE 84 yrs [facility] NON-AA GFR >60 mL/min [facility] AFR AMER GFR >60 [facility] Male GFR In terprentation 20-49 yrs >60 mL/min Normal 50-59 yrs >56 mL/min Normal 60-69 yrs >49 mL/min Normal 70-79yrs >42 mL/min Normal 80 and above >35 mL/min Normal Female GFR Interpretation 20-39 yrs >60 mL/min Normal 40-49 yrs >58 mL/min Normal 50-59 yrs >51 mL/min Normal 60-69 yrs >45 mL/min Normal 70-79 yrs >39 mL/min Normal 80 and above >32 mL/min Normal ID Date Data Source [id number] 10/27/2020 08:54:00 AM EDT [facility] Name Value Range Interpretation Code Description Data Berkley rce(s) Supporting Document(s) CBC W/AUTOMATED DIFF [facility] COMPLETE BLOOD COUNT Leukocytes [#/volume] in Blood by Automated count 2.6 10^3/uL 4.2 - 1 1.0 L [facility] Erythrocytes [#/volume] in Blood by Automated count 3.15 10^6/uL 4. 20 - 5.40 L [facility] Hemoglobin [Mass/volume] in Blood 10.4 g/dL 12.0 - 16.0 L [facility] Hematocrit [Volume Fraction] of Blood by Automated count 32.0 % 3 7.0 - 47.0 L [facility] Erythrocyte mean corpuscular volume [Entitic volume] b y Automated count 101.6 fL 81.0 - 101 H [facility] Erythrocyte mean corpuscular hemoglobin [Entitic mass] by Automated count 33.0 pg 27.0 - 34.0 [facility] Erythrocyte mean corpuscular hemoglobin concentration [Mass/volume] by Automated count 32.5 g/dL 31.0 - 36.0 [facility] Erythrocyte distribution width [Ratio] by Automated count 16.7 % 11.5 - 14.5 H [facility] Platelets [#/volume] in Blood by Automated count 162 10^3/uL 150 - 45 0 [facility] Platelet mean volume [Entitic volume] in Blood by Automated count 11.2 fL 7.4 - 10.4 H [facility] Neutrophils/100 leukocytes in Blood by Automated count 39.6 % 37. 0 - 80.0 [facility] Lymphocytes/100 leukocytes in Blood by Manual count 40.5 % 25.0 - 40.0 H [facility] Monocytes/100 leukocytes in Blood by Automated count 10.3 % 3.0 - 8.[address] [facility] Eosinophils/100 leukocytes in Blood by Automated count 6.5 % 0.0 - 7.0 [facility] 0.4 %IG 2.7 % 0.0 - 0.[address] [facility] %NRBC 0.0 % 0.0 - 0.0 [facility] Neutrophils [#/volume] in Blood by Automated count 1.04 10^3/uL 2.00 - 6.90 L [facility] Lymphocytes [#/volume] in Blood by Automated count 1.06 10^3/uL 0.60 - 3.40 [facility] Monocytes [#/volume] in Blood by Automated count 0.27 10^3/uL 0.00 - 0.90 [facility] Eosinophils [#/volume] in Blood by Automated count 0.17 10^3/uL 0.00 - 0.70 [facility] Basophils [#/volume] in Blood by Automated count 0.01 10^3/uL 0.00 - 0.20 [facility] #IG 0.07 10^3/uL 0.00 - 0.10 [facility] #NRBC 0.00 10^3/uL 0.00 - 0.00 [facility] ospital MANUAL DIFF SEE BELOW [facility] ital Segmented neutrophils/100 leukocytes in Blood by Manual count 42 % 37 - 80 [facility] BAND 2 % 0 - 5 [facility] %LYMPH 38 % 25 - 40 [facility] %MONO 8 % 3 - 8 [facility] %EOS 8 % 0 - [address] [facility] 2 RBC [facility]PH [facility] Anisocytosis [Presence] in Blood by Light microscopy 1+ MANA L: NONE SEEN A [facility] Microcytes [Presence] in Blood by Light microscopy 1+ NORMAL: NONE SEEN A [facility] HYPO 1+ NORMAL: NONE SEEN A [facility] { SICKLE CELL (NORMAL: NONE SEEN ) HELMET CELLS 1+ NORMAL: NONE SEEN A [facility] Platelet adequacy [Presence] in Blood by Light microscopy NORMAL NORMAL: NORMAL [facility] COMMENT: ID Date Data Source [id number] 10/10/2020 12:58:00 PM EDT [facility] Name Value Range Interpretation Code Description Data Berkley rce(s) Supporting Document(s) WBC 3.28 x10E3/uL 4.0-10.5 L [facility] RBC 2.12 x10E6/uL 4.20-5.40 L [facility] Hemoglobin 7.5 g/dL 12.0-16.0 L [facility] Hematocrit 23.2 % 37.0-47.0 L [facility] MCV 109.4 fL 81.0-99.0 H [facility] MCH 35.4 pg 27.0-31.0 H [facility] MCHC 32.3 g/dL 32.7-35.6 L [facility] RDW 16.8 % 11.5-14.0 H [facility] Platelet count 157 x10E3/uL 150-450 [facility] MPV 11.7 fl 6.9-9.5 H [facility] SEG. NEUTROPHIL 40 % 34-64 [facility] % 5-11 L [facility] LYMPHOCYTE 42 % 25-45 [facility] EOSINOPHILS 10 % 0-7 H [facility] MONOCYTES 4 % 2-10 N [facility] BASOPHILS 2 % 0-2 [facility] METAMYELOCYTES 1 % 0-2 [facility]+ ANISOCYTOSIS1+ OVALOCYTES1+ MACROCYTO SIS1+ HYPOCHROMICRBC MORPHOLOGY EXPECTED RESULTS: NORMAL = NORMOCHROMIC, NORMOCYTIC CELLSAny findings other than Normal will be reported and areconsidered Abnormal. The significance of Abnormalfindings are to be clinically correlated by the provider. ID Date Data Source [id number] 10/13/2020 12:52:00 PM EDT [facility] Name Value Range Interpretation Code Description Data Berkley rce(s) Supporting Document(s) [id number] TRANSFUSED PRODUCT: PACKED CELLS CO UNT: 3 [facility] ID Date Data Source [id number] 10/13/2020 12:52:00 PM EDT [facility] Comments to BBK: PT HAS NO HX, CBC AND R ETYPE ORDERED *Hgb < 8.0g/dL or Hct < 24% and PT Hemodynamically Unstable YIrradiated? NCMV Negative? NTransfuse 1units over 2UNIT NUMBER: [id number]: YPRODUCT: LEUKO REDUCED RED BLOOD CELLSSOURCE: [facility] TYPE: O NEGATIVEVOLUME: 313MLCROSSMATCH COMPONENTS:0UNIT NUMBER: [id number]: YPRODUCT: LEUKO REDUCED RED BLOOD CELLSSOURCE: [facility] TYPE: O NEGATIVEVOLUME: 400MLCROSSMATCH COMPONENTS:0UNIT NUMBER: [id number]: YPRODUCT: LEUKO REDUCED RED BLOOD CELLSSOURCE: [facility] TYPE: O NEGATIVEVOLUME: 301MLCROSSMATCH COMPONENTS:0 Name Value Range Interpretation Code Description Data Berkley rce(s) Supporting Document(s) ID Date Data Source [id number] 10/13/2020 12:52:00 PM EDT [facility] Comments to BBK: PT HAS NO HX, CBC AND R ETYPE ORDERED *Hgb < 8.0g/dL or Hct < 24% and PT Hemodynamically Unstable YIrradiated? NCMV Negative? NTransfuse 1units over 2 Name Value Range Interpretation Code Description Data Berkley rce(s) Supporting Document(s) BLOOD TYPE O NEGATIVE [facility] ANTIBODY SCREEN NEGATIVE N [facility] ID Date Data Source [id number] 10/10/2020 01:49:00 PM EDT [facility] Comments to BBK: PT HAS NO HX, CBC AND R ETYPE ORDERED Name Value Range Interpretation Code Description Data Berkley rce(s) Supporting Document(s) BLOOD TYPE O NEGATIVE [facility] ID Date Data Source [id number] 10/06/2020 07:14:00 AM EDT [facility] [address] [address] FOLLOW UP NOTENAME: ELIZABETH LAWRENCE CPHYSICIAN: MARLI RED, ROSANNAATE OF SERVICE: 10/05/20DATE OF : [birth year]CCOUNT #: [id number]: ELIZABETH LAWRENCEDate: Oct 05OB: [birth year]hysician: Francisco OrdonezBSilS.Age: 84Note Title: Hematology Follow UpDiagnosis:Primary - R79.1 - Abnormal coagulation profile, Diagnosed 2019 (Active)Primary - D72.819 - Decreased white blood cell count, unspecified,Diagnosed 2019 (Active)Primary - D72.820 - Lymphocytosis (symptomatic), Diagnosed 2019 (Active)Primary - D64.9 - Anemia, unspecified, Diagnosed 2018 (Active)Primary - - Thrombocytosis, Diagnosed May 31, 2014 (Active)Problems / Chief Complaints:Follow-upHistory of Present Illness:DIAGNOSIS:Essential thrombocytosis, anemiaPROBLEM LIST#1. Stroke in April 2013. Presented with weakness and falls. CT of thehead on April 20, 2013 with old small right parietal lobe, lacunar infarct,small vessel ischemic disease and mild volume loss.#2, platelet count elevated to 981K On December 25, 2013.#3. 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 Discontinuedsecondary to soreness of hands and feet and mouth sores.#5, started anagrelide 0.5 mg twice daily on May 22, 2014.Anagrelideincreased to TID 2016#6. March 2019-admitted for hip fracture.April 2019-readmitted for influenza.7. Evaluation of bleeding Feb hemoglobin 11.2 hematocrit 33.4WBC 2.9 platelets 346 differential neutrophils 33% lymphocytes 50% atypicallymphocytes 7% monocytes 4% eosinophils 6% CMP WNL8. February 15, 2020 hemoglobin 11 hematocrit 33 WBC 2.6 platelets 275neutrophils 43% lymphocytes 45% monocytes 7% eosinophils 4%Prothrombin time 14.2 seconds INR 1.05 PTT normal at 36.7 seconds D-dimerelevated at 0.65 and fibrinogen normal at 298Platelet function analysis collagen epinephrine time elevated at 202 secondscollagen ADP time is listed as pending9. March 24, 2020 hemoglobin 10.3 hematocrit 30.8 WBC 2.9 platelets 274differential neutrophils 41% lymphocytes 45%CMP with creatinine of 1 normalliver panel10. April 05, 2020 flow cytometry no significant immunophenotypicabnormality .July 19, 2020 hemoglobin 9.9 hematocrit 29.3 WBC 2.4 platelets 190differential neutrophils 49% lymphocytes 39% monocytes 7%Absolute neutrophilcount [id number].September 30, 2020 hemoglobin 7.2 hematocrit 23.1 WBC 4.8 platelets 146differential neutrophils 58% lymphocytes 25% monocytes 11% eosinophils 4%HISTORY OF PRESENT ILLNESSMrsSil Lawrence is a 78-year-old female who 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 She has a history of hypertension, arthritis,osteoporosis, and TIA. Found to have an elevated platelet count of 981k. OnDecember 25, 2013.She was admitted to [facility] on April 20, 2013 when shepresented with weakness and falls. CT scan of the head on April 20, 2013showed old small right parietal lobe, lacunar infarct, small vessel ischemicdisease and mild volume loss. It is unknown if her platelet count was elevatedat that time. The patient had REGINA 2 mutation tested which was negative. Therewas no evidence of exon 12 or exon 13 Mutations. Testing for MPL W515 and [id number] mutation was also negative. There was no evidence of elevated ferritin,and platelet count remained elevated at between 820-829. 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 Thepatient developed hand-foot syndrome shortly after taking hydroxyurea. Shealso had mouth sores. All of her symptoms resolved after stopping the drug.The decision was made to start anagrelide.INTERVAL HISTORY:Patient informed consent for telemedicinePatient was explained the telehealth process in simple language that he/shecould understand. We described the expected risks and benefits of thetelehealth services. We discussed available alternatives. We discussed therisks of use of technology and the risk of distance and limitation of inabilityto do a hands on examination. We also discussed the risks of possible breach ofhealth information systems specialist while using technology. After this discussionpatient gave verbal informed consent for the use of telemedicine.Visit: October 05tart time: 4:15 PMStop time 4:30 [facility] appointment was scheduled because I received a letter from Dr. Betancourt stating that the patient was seen in his office on September 30 forcomplaints of general malaise. On exam she had lung crackles and a trace ofedema. Chest x-ray showed clear lungs, no infiltrate, mild cardiomegaly,calcification of the mitral annulus.Labs revealed that her hemoglobin had dropped to 7.2 but WBC and plateletcounts were generally stable. CMP remarkable for creatinine of 1.13 normalelectrolytes calcium low at 8.2 albumin 3.2 BNP elevated at 2417 and TSH normalat 1.970She was started on furosemide 20 mg daily and patient and daughter both statethat this has helped her significantly with dyspnea. She had a recentlyupdated echocardiogram and that result is being obtained by her primary careprovider.She was referred for transfusion and management of her anemia.Patient herself stated that she was not severely symptomatic from her anemiaand her dyspnea has improved. Both patient and daughter wanted to know if shecan be transfused next week on Saturday and Saturday because that is moreconvenient for them. Patient denied any obvious GI bleeding.Past Medical History:ArthritisHypertensionOsteoporosisTIA (transient ischemic attack) (last winter saw orbs and stars in field ofvision, had a fall x2, stayed at home because felt better, symp resolved in 24hrs. Had left sided weakness for 2 months. 2013)Bowel obstruction in 2018[place] Surgical History:[facility] [place], also did bladder lift.Surgery for fracture of - Leg and Compression Fractures in back.Right hip ORIF in 2019Colonoscopy in llergies:No Known Allergies.Current Medications:Acetaminophen 325 mg Tablet Oral once (Oct 10, 2020)Anagrelide HCl (0.5 mg) Capsule Oral Take as Directed (Jan 25, 2016)Blood 1 Units Intravenous once over 180 minutes (Oct 10, 2020)DiphenhydrAMINE HCl 25 mg Capsule Oral once (Oct 10, 2020)Furosemide 20 mg Tablet Oral once (Oct 10, 2020)Anagrelide HCl (0.5 mg) Capsule Oral Take as Directed (Dec 09, 2014 -approx.)Biotin (5000 mcg) Capsule Oral daily (Start Date - unknown)CVS Iron 1 Tablet (of 325 (65 fe) mg) Oral daily (Start Date - unknown)Calcium 1 Tablet Oral daily (Start Date - unknown)Isosorbide Dinitrate ER 1 Tablet (of 40 mg) Tablet, controlled release Oraldaily (Start Date - unknown)Loperamide HCl 0.5 Tablet (of 2 mg) Capsule Oral b.i.d. (Start Date - unknown)Losartan Potassium 50 mg Tablet Oral daily (Start Date - unknown)Vitamin C 1,000 mg Tablet Oral b.i.d. 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 She is an active drinker.Ms. LAWRENCE reports no contact with [facility].Ms. LAWRENCE reports the following support systems: lives alone. Her dietconsists of regular meals. She indicates her activity level as: occasionalexercise. Rare Alcohol use.Family History:Ms. LAWRENCE's mother is : cancer history consists of Rectal cancer atage 90. Ms. LAWRENCE's father is : cardiovascular disease, and stroke. 5brothers- 2 had leukemia, 1 had acute leukemia at age 69., the other was 92.Brother with prostate cancer with mets to bone.Review of Systems:Constitutionalwt gainAllergic/ImmunologicNo reactions.Eyesstill has blurry vision with reading.ENMTHearing aids.EndocrineNo diabetes, thyroid disease or hormone replacement. No hot flashes or nightsweats.Hematologic/Lymphaticeasy bruising. The patient denies any tender or palpable lymph nodes.RespiratoryNo dyspnea on exertion, chest pain, cough or hemoptysis.CardiovascularNo anginal chest pain, palpitations or orthopnea.GastrointestinalNo GI bleeding, or constipation. No change in bowel habits, no heartburn orearly satiety.Nausea and vomiting with milk. Diarrhea controlled with ImodiumGenitourinary (F)No abnormal genital masses. No hematuria, hesitancy, incontinence, vaginalbleeding, discharge or other problems with urination.Musculoskeletalhip joint pain-uses Lidocaine patches , pain in center of backIntegumentarypsoriasisNeurologicnumbness in right hand, alwaysPsy chiatricif stays busy all day sleeps through the night.Vital Signs:Vitals are not available for this patient.Performance Status:2 - Ambulatory/capable of all self-care, unable to perform any workactivities. Up and about more than 50% of waking hours. (ECOG)Physical Exam:Physical Exam-Comments is not available for this patient.Laboratory:Most recent lab results are not available for this patient.Other test results are not available for this patient.Impression:#1. Essential thrombocytosis.#2. Hypertension.#3. History of stroke.#4. Use of vlqb-yrl-qbbszyd supplementsPlan:#1. Essential thrombocytosis-Platelets on most recent CBC are 146Continue anagrelide 0.5 milligrams 3 times daily. Platelet count is adequatelycontrolled.#2 anemia-Patient has had gradually decreasing hemoglobin which has previouslybeen worked up and there was no evidence of iron deficiency, vitamin B12 andfolic acid deficiency. Bone marrow aspirate and biopsy had been discussed withthe patient in the past but she had refused.Now she presents with acute worsening of anemia. Given that her hemoglobin isaround 7 she is a candidate for transfusion and the risks and benefits of thiswere discussed with her today. In light of findings consistent with heartfailure, I recommended that the transfusion be given more slowly over about 3hours and 3 units be divided over 2 days and furosemide 20 mg p.o. be givenwith transfusion. Patient and daughter are both agreeable to this plan.After discussion of risks and benefits of transfusion the patient gave verbalconsent. She will sign the consent when she comes in.Along with her type and crossmatch, baseline labs will be redrawn and ifnoncontributory to her current anemia, will plan for bone marrow aspirate andbiopsy.Patient would like to have this in the cancer treatment center withDemerol and Ativan.3. Bilateral lung crackles on exam patient denies any dyspnea or cough.Willhold off on evaluation for now. Patient already has follow-up withcardiologist Dr. Holland.4. New onset of leukopenia and neutropenia unclear etiology.Patientcontinueswith worsening leukopenia and Neutropenia. As noted above patient would liketo defer bone marrow aspirate and biopsy.Reviewed the results of her flow cytometry which shows no immunophenotypicabnormalities. There was a mixture of CD4 and CD8 positive T cells which wasfelt to be reactive.5. Bleeding disorder PT and PTT were normal. Fibrinogen level was normal.Thrombin time was never done. Platelet function analysis was performed butonly the collagen epinephrine time has been provided which was prolonged.As the patient's bleeding problems have improved off aspirin that appears lowell the most likely cause of her bleeding issues. She will continue off aspirinat this time.7. I did remind the patient that despite receiving the Covid vaccine sheshould continue to practice all precautions including wearing a mask , washinghands frequently and social distancing.There are new variants of COVID-19 where the vaccine may not provide as muchp rotection. The same concern apply to travel. To my knowledge, [place] is notyet open for Travelers from the [place]. As and when this opens, she maybe able to travel understanding the risks.8. Follow-up in 3 months.Electronically signed by:Marli PennvaCC:Chito Bowden MD Name Value Range Interpretation Code Description Data Berkley rce(s) Supporting Document(s) ID Date Data Source [id number] 09/25/2020 01:18:12 PM EDT [facility] Name Value Range Interpretation Code Description Data Berkley rce(s) Supporting Document(s) &PDF [facility] PEFEPn9lEfBUPuNc73/DAWqzQQYuu4HpKRqgCJw5NGiyWBSaV1XlpSncND9UY82OMTiUONPZYO4WZK4i oRX [file] GsOABPTf/5+HxBV++f//shoe worker+221kJJEgR9V1DGv+IsS1KgRK/qGHB3UTy+n//35qMPzXFGubFM5vrM4F [file] AgICAgICAgICAgICAgICAgICAgICAgICAgICAgICAg ICAgICAgICAgICAgICAgICAgICAgICAgICAgICAgICAgICAgICAgICAgICAgICAgICAgICAgICAgICAg ICANCiAgICAgICAgICAgICAgICAgICAgICAgICAgICAgICAgICAgICAgICAgICAgICAgICAgICAgICAg ICAgICAgICAgICAgICAgICAgICAgICAgICAgICAgIC AgICAgICAgICAgICANCiAgICAgICAgICAgICAgICAgICAgICAgICAgICAgICAgICAgICAgICAgICAgIC AgICAgICAgICAgICAgICAgICAgICAgICAgICAgICAgICAgICAgICAgICAgICAgICAgICAgICANCiAgIC AgICAgICAgICAgICAgICAgICAgICAgICAgICAgICAg ICAgICAgICAgICAgICAgICAgICAgICAgICAgICAgICAgICAgICAgICAgICAgICAgICAgICAgICAgICAg ICAgICANCiAgICAgICAgICAgICAgICAgICAgICAgICAgICAgICAgICAgICAgICAgICAgICAgICAgICAg ICAgICAgICAgICAgICAgICAgICAgICAgICAgICAgIC AgICAgICAgICAgICAgICANCiAgICAgICAgICAgICAgICAgICAgICAgICAgICAgICAgICAgICAgICAgIC AgICAgICAgICAgICAgICAgICAgICAgICAgICAgICAgICAgICAgICAgICAgICAgICAgICAgICAgICANCi AgICAgICAgICAgICAgICAgICAgICAgICAgICAgICAg ICAgICAgICAgICAgICAgICAgICAgICAgICAgICAgICAgICAgICAgICAgICAgICAgICAgICAgICAgICAg ICAgICAgICANCiAgICAgICAgICAgICAgICAgICAgICAgICAgICAgICAgICAgICAgICAgICAgICAgICAg ICAgICAgICAgICAgICAgICAgICAgICAgICAgICAgIC AgICAgICAgICAgICAgICAgICANCiAgICAgICAgICAgICAgICAgICAgICAgICAgICAgICAgICAgICAgIC AgICAgICAgICAgICAgICAgICAgICAgICAgICAgICAgICAgICAgICAgICAgICAgICAgICAgICAgICAgIC ANCiAgICAgICAgICAgICAgICAgICAgICAgICAgICAg ICAgICAgICAgICAgICAgICAgICAgICAgICAgICAgICAgICAgICAgICAgICAgICAgICAgICAgICAgICAg ICAgICAgICAgICANCjw/yVEmB1zazIYhvlW7L7wxNi0IAv3WEF6dg2JxHWPgYRrhcgTcCewJMvEwDETy ZocCHei4VFpyCI5KsULsJ2KuK6ZkTPxhBL3BPCDuTS LvsGAtNXAuUOMhGaL7NXUdTOliNX3AyXJcWFnjHGLyBBYiJcOdDZEjHXOtQLDpUY2FPKQiG468kdTzEw 3FJx2VHkTnGN4bug9DPpRdDMYpMxeEMge6CHxqRC3HmVSkB7CzdUQug1aJTmHtB0WDXQSdOMArPg2BSD CiTtGzQMYkXFthNY7iCCSeFGFJmWpzdiY2DW3TRZ7h mtQlNT0DMzIuQh8eBr3HVaNxG8XsW0ZfPBYgSXTOLHfkCN7ZGJOnCQB5ATXqYGZpXJQAGfUjD01oBQ6Q E4Jzg53yBxB6JCZtGmVvIEhaHP30dHlpztNtuKTfePghFF2ZNj7+DQplbmRvYmoNCnhyZWYNCjAgMzYN OoRjJAYvDAReQJWxSxW2AbLlAn3LBJZoDCGnWLMkOf HkCFJmIVGgDAutQJZuRWZlDSK2ASQkHCPhTP9TTuUdZAFhUjY4YZrmOLIbOENrop4IWBBgHPAaSXB9VE DgYGLyNLOcHKqaPIZmDCXpTOB3ZSJuTYInYW0BEtSjQFQoYVIkRtOkUXXjJLHuln4AHHNjUGYjIaDvWV QtOYNvGFXjGAozJUWxNZA6DAS1HCDsEAOoZJ5CFbZe KHRhMKm0JzIlNHRkMJBgkd0NAFUbAYCrSNk4KJAaMSBrMKIhNZipBWGmIWAnSRN3KVMkBZDiPY6QAjDp STPoWPXhXzRhTUVfGPXzay2AHIPpTSYdBTYnZORqKGHdGBAcXRkkCNRlUSIhJkj3PPSzCTZxYL7OIoEe BBMpINA1OWOfHVOpNLDrnw3ZETGwCYGeVnN3TNYhXA WyPJDpTLynKXYxKPN8CHU7GFMzFOIbCB7VVmHhKCZrMMp1HCMrDBKcGUUyul5KLLUpNLNiIAK9CrLlET FuAXNaHDwaRCUnRBR9LnflTCJhWJBsIY1GUwEsUFEmIRo9SSEoBCZwVSFxsa2YLLPdPEJsUUR1RbCsZE RaULOvESdqEMRuTHI0VEA0FEFgDJVlFM5UTfJfARFd ZUl9TVDsTUZjYKJsig9UZESwKYBtNYR5HuVkFIBsQFMvTXqmFIQvROClUTX5HKHmQDMmVJ5FRaUgOWZj ZtZuJHSnSPFxXXTkqi6VCLTfDILqRSP0NcVzEITbDBGzMIlcKZHoCRZmVwR5YGXeSSEuBN6WTxQnCBLy JnX0OxziAYUjRYDciv0DRSSbXHEpVoX1YCMwNSNuPJ WlZBivIKPuGQBfKBK0XIAlIAJpDN5KSfMeWSMuAdD3BGPpLDAeHPUbhc6OMCCtDNDoZrMtGSQiPIGsKB WkGQzsGWIiLIZ6JuT9BBWoFMFfMV0OQkMyZZncICYJQol5QYavW2x9WBSiOh2RG4Deu9ZjUgXhESRHVN alJV1hrmIkYRXbHj3RU3cLSvhsORV5AaCmVLZ4FrM4 HXN1KRt2IUM1NHBfOVK4LPEwUP4tRNO1OHfnAHPvWQC1WiDkPZMdEKPnXBYyCWWnRqj1XHT8XzPjAK4H Mb9LGaR7HAT0oCSpPv0TTkQ3HSHVQaKxOA2MYUl= ID Date Data Source [id number] 07/28/2020 08:08:00 AM EDT [facility] [address] [address] FOLLOW UP NOTENAME: ELIZABETH LAWRENCE CPHYSICIAN: MARLI RED, ROSANNAATE OF SERVICE: 07/27/20DATE OF : 31CCOUNT #: [id number]: ELIZABETH LAWRENCEDate: July 27OB: [birth year]Physician: Dayaan OrdonezSSilAge: 84Note Title: Hematology Follow UpDiagnosis:Primary - R79.1 - Abnormal coagulation profile, Diagnosed 2019 (Active)Primary - D72.819 - Decreased white blood cell count, unspecified,Diagnosed 2019 (Active)Primary - D72.820 - Lymphocytosis (symptomatic), Diagnosed 2019 (Active)Primary - D64.9 - Anemia, unspecified, Diagnosed 2018 (Active)Primary - - Thrombocytosis, Diagnosed May 31, 2014 (Active)Problems / Chief Complaints:Follow-upHistory of Present Illness:DIAGNOSIS:Essential thrombocytosisPROBLEM LIST#1. Stroke in April 2013. Presented with weakness and falls. CT of thehead on April 20, 2013 with old small right parietal lobe, lacunar infarct,small vessel ischemic disease and mild volume loss.#2, platelet count elevated to 981K On December 25, 2013.#3. 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 Discontinuedsecondary to soreness of hands and feet and mouth sores.#5, started anagrelide 0.5 mg twice daily on May 22, 2014.Anagrelideincreased to TID 2015#6. March 2019-admitted for hip fracture.April 2019-readmitted for influenza.7. Evaluation of bleeding February 10, 2020 hemoglobin 11.2 hematocrit 33.4WBC 2.9 platelets 346 differential neutrophils 33% lymphocytes 50% atypicallymphocytes 7% monocytes 4% eosinophils 6% CMP WNL8. February 15, 2020 hemoglobin 11 hematocrit 33 WBC 2.6 platelets 275neutrophils 43% lymphocytes 45% monocytes 7% eosinophils 4%Prothrombin time 14.2 seconds INR 1.05 PTT normal at 36.7 seconds D- dimerelevated at 0.65 and fibrinogen normal at 298Platelet function analysis collagen epinephrine time elevated at 202 secondscollagen ADP time is listed as pending9. March 24, 2020 hemoglobin 10.3 hematocrit 30.8 WBC 2.9 platelets 274differential neutrophils 41% lymphocytes 45%CMP with creatinine of 1 normalliver panel10. April 05, 2020 flow cytometry no significant immunophenotypicabnormality .July 19, 2020 hemoglobin 9.9 hematocrit 29.3 WBC 2.4 platelets 190differential neutrophils 49% lymphocytes 39% monocytes 7%Absolute neutrophilcount 1200HISTORY OF PRESENT ILLNESSMrsSil Lawrence is a 78-year-old female who 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 She has a history of hypertension, arthritis,osteoporosis, and TIA. Found to have an elevated platelet count of 981k. OnDecember 25, 2013.She was admitted to [facility] on April 20, 2013 when shepresented with weakness and falls. CT scan of the head on April 20, 2013showed old small right parietal lobe, lacunar infarct, small vessel ischemicdisease and mild volume loss. It is unknown if her platelet count was elevatedat that time. The patient had REGINA 2 mutation tested which was negative. Therewas no evidence of exon 12 or exon 13 Mutations. Testing for MPL W515 and [id number] mutation was also negative. There was no evidence of elevated ferritin,and platelet count remained elevated at between 820-829. Since there was nogood r sharon for Reactive thrombocytosis, the patient was felt to have essentialthrombocytosis and was started on hydroxyurea 500 mg by mouth daily. Thepatient developed hand-foot syndrome shortly after taking hydroxyurea. Shealso had mouth sores. All of her symptoms resolved after stopping the drug.The decision was made to start anagrelide.INTERVAL HISTORY:Patient returns accompanied by her daughter for a follow-up visit. She statesthat she feels great. She has been doing a lot of gardening. She denies anynew infections. Energy level is fair. She has been mowing her own lawn.Appetite is good. Jona ght gain of 9 pounds. No fever or chills.Past Medical History:ArthritisHypertensionOsteoporosisTIA (transient ischemic attack) (last winter saw orbs and stars in field ofvision, had a fall x2, stayed at home because felt better, symp resolved in 24hrs. Had left sided weakness for 2 months. 2013)Bowel obstruction in 2018Pa Surgical History:Breast biopsyHyste[facility] - [facility] in [place], also did bladder lift.Surgery for fracture of - Leg and Compression Fractures in back.Right hip ORIF in 2019Colonoscopy in llergies:No Known Allergies.Current Medications:Anagrelide HCl (0.5 mg) Capsule Oral Take as Directed (Jan 25, 2016)Anagrelide HCl (0.5 mg) Capsule Oral Take as Directed (Dec 09, 2014 - approx.)Biotin (5000 mcg) Capsule Oral daily (Start Date - unknown)CVS Iron 1 Tablet (of 325 (65 fe) mg) Oral daily (Start Date - unknown)Calcium 1 Tablet Oral daily (Start Date - unknown)Isosorbide Dinitrate ER 1 Tablet (of 40 mg) Tablet, controlled release Oraldaily (Start Date - unknown)Loperamide HCl 0.5 Tablet (of 2 mg) Capsule Oral b.i.d. (Start Date - unknown)Losartan Potassium 50 mg Tablet Oral daily (Start Date - unknown)Vitamin C 1,000 mg Tablet Oral b.i.d. 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 She is an active drinker.Ms. LAWRENCE reports no conta ct with hazardousmaterial.Ms. LAWRENCE reports the following support systems: lives alone. Her dietconsists of regular meals. She indicates her activity level as: occasionalexercise. Rare Alcohol use.Family History:Ms. LAWRENCE's mother is : cancer history consists of Rectal cancer atage 90. Ms. LAWRENCE's father is : cardiovascular disease, and stroke. 5brothers- 2 had leukemia, 1 had acute leukemia at age 69., the other was 92.Brother with prostate cancer with mets to bone.Review of Systems:Constitutionalwt gainAllergic/ImmunologicNo reactions.Eyesstill has blurry vision with reading.EN MTHearing aids.EndocrineNo diabetes, thyroid disease or hormone replacement. No hot flashes or nightsweats.Hematologic/Lymphaticeasy bruising. The patient denies any tender or palpable lymph nodes.RespiratoryNo dyspnea on exertion, chest pain, cough or hemoptysis.CardiovascularNo anginal chest pain, palpitations or orthopnea.GastrointestinalNo GI bleeding, or constipation. No change in bowel habits, no heartburn orearly satiety.Nausea and vomiting with milk. Diarrhea controlled with ImodiumGenitourinary (F)No abnormal genital masses. No hematuria, hesitancy, incontinence, vaginalbleeding, discharge or other problems with urination.Musculoskeletalhip joint pain-uses Lidocaine patches , pain in center of backIntegumentarypsoriasisNeurologicnumbness in right hand, alwaysPsychiatricif stays busy all day sleeps through the night.Vital Signs:Performed on July 27, 2020 13:38Bidszs82.00 ddSbrfhl891.2 lbs(HIGH)BSA (derived)1.63 sq.mBMI26.08Bbqvqxigtot82.4 YPntvs50 /tflAwwacrprsnv94 /codCK524/80Pulse Oximetry (O2 Sat)97 %Pain Bsmngcuucn5Xgnv RiskModerate fall riskPerformance Status:1 - No physically strenuous activity, but ambulatory and able to carry outlight or sedentary work (e.g. office work, light house work). (ECOG)Physical Exam:ConstitutionalNormal - Alert, cooperative, oriented. Mood and affect appropriate. Appearsclose to chronological age. Well nourished. Well developed.HeadNormal - Normocephalic; no scars.EyesNormal - Conjunctivae and sclerae are clear and without icterus. Pupils arereactive and equal.ENMTNormal - Sinuses are nontender. No oral exudates, ulcers, masses, thrush ormucositis. Oropharynx clear. Tongue normal.NeckNormal - Supple without masses or thyromegaly. No jugular venous distension.Hematologic/LymphaticNormal - No petechiae or purpura. No tender or palpable lymph nodes in thecervical, supraclavicular, axillary or inguinal area.RespiratoryAbnormal - bilateral crackles at both basesCardiovascularAbnormal - Regular rate and rhythm of heart . Systolic ejection murmur 3/6lsb.ChestNormal - Chest is symmetric without chest wall deformities.AbdomenNormal - Non-tender, non-distended, no masses, ascites or hepatosplenomegaly.Good bowel sounds. No guarding or rebound tenderness. No pulsatile masses.Back/SpineNormal - No kyphosis, scoliosis, compression fractures. Non-tender topalpation.ExtremitiesNormal - No visible deformities, no cyanosis, clubbing or edema. Pulses 4+ andequal bilaterally.MusculoskeletalNormal - No tenderness or swelling, normal range of motion without obviousweakness.IntegumentaryNormal - No rashes, scars, or lesions suggestive of malignancy.NeurologicNormal - No sensory or motor deficits, normal cerebellar function, normalgait, cranial nerves intact.PsychiatricNormal - Alert and oriented times three. Coherent speech. Verbalizesunderstanding of our discussions today.Laboratory:Most recent lab results are not available for this patient.Other test results are not available for this patient.Impression:#1. Essential thrombocytosis.#2. Hypertension.#3. History of stroke.#4. Use of ciav-ljc-enzpxsk supplementsPlan:#1. Essential thrombocytosis-July 19, 2020 hemoglobin 9.9 hematocrit 29.3 QRH878.3 WBC 2.4 platelets 198 differential neutrophils 49% lymphocytes 39%monocytes 7%.Continue anagrelide 0.5 milligrams 3 times daily. Platelet count is adequatelycontrolled.#2 anemia-Patient has worsening anemia with hemoglobin dropped from 10.3 9.9.In light of worsening leukopenia and neutropenia, discussed obtaining bonemarrow aspirate and biopsy but patient would like to defer this through thesummer and think about it again around November. Theref [facility] patient is beingscheduled for follow-up in November.3. Bilateral lung crackles on exam patient denies any dyspnea or cough.Willhold off on evaluation for now. Patient already has follow-up withcardiologist Dr. Holland.4. New onset of leukopenia and neutropenia unclear etiology.Patientcontinueswith worsening leukopenia and Neutropenia. As noted above patient would liketo defer bone marrow aspirate and biopsy.Reviewed the results of her flow cytometry which shows no immunophenotypicabnormalities. There was a mixture of CD4 and CD8 positive T cells which wasfelt to be reactive.5. Bleeding disorder PT and PTT were normal. Fibrinogen level was normal.Thrombin time was never done. Platelet function analysis was performed butonly the collagen epinephrine time has been provided which was prolonged.As the patient's bleeding problems have improved off aspirin that appears lowell the most likely cause of her bleeding issues. She will continue off aspirinat this time.6.There are currently no con traindications to dental extraction and patientwas informed of this.7. I did remind the patient that despite receiving the Covid vaccine sheshould continue to practice all precautions including wearing a mask , washinghands frequently and social distancing.There are new variants of COVID-19 where the vaccine may not provide as muchprotection. The same concern apply to travel. To my knowledge, [place] is notyet open for Travelers from the [place]. As and when this opens, she maybe able to travel understanding the risks.8. Follow-up in 3 months.Electronically signed by:Marli PennvaCC:Alber Bowden MD Name Value Range Interpretation Code Description Data Berkley rce(s) Supporting Document(s) ID Date Data Source [id number] 07/19/2020 11:29:00 AM EDT [facility] Name Value Range Interpretation Code Description Data Berkley rce(s) Supporting Document(s) CBC W/AUTOMATED DIFF [facility] COMPLETE BLOOD COUNT Leukocytes [#/volume] in Blood by Automated count 2.4 10^3/uL 4.2 - 1 1.0 L [facility] Erythrocytes [#/volume] in Blood by Automated count 2.68 10^6/uL 4. 20 - 5.40 L [facility] Hemoglobin [Mass/volume] in Blood 9.9 g/dL 12.0 - 16.0 L [facility] Hematocrit [Volume Fraction] of Blood by Automated count 29.3 % 3 7.0 - 47.0 L [facility] Erythrocyte mean corpuscular volume [Entitic volume] b y Automated count 109.3 fL 81.0 - 101 H [facility] Erythrocyte mean corpuscular hemoglobin [Entitic mass] by Automated count 36.9 pg 27.0 - 34.0 H [facility] Erythrocyte mean corpuscular hemoglobin concentration [Mass/volume] by Automated count 33.8 g/dL 31.0 - 36.0 [facility] Erythrocyte distribution width [Ratio] by Automated count 14.6 % 11.5 - 14.5 H [facility] Platelets [#/volume] in Blood by Automated count 190 10^3/uL 150 - 45 0 [facility] Platelet mean volume [Entitic volume] in Blood by Automated count 11.8 fL 7.4 - 10.4 H [facility] Neutrophils/100 leukocytes in Blood by Automated count 48.6 % 37. 0 - 80.0 [facility] Lymphocytes/100 leukocytes in Blood by Manual count 38.7 % 25.0 - 40.0 [facility] Monocytes/100 leukocytes in Blood by Automated count 7.4 % 3.0 - 8.0 [facility] Eosinophils/100 leukocytes in Blood by Automated count 3.7 % 0.0 - 7.0 [facility] Basophils/100 leukocytes in Blood by Automated count 0.0 % 0.0 - 2.5 [facility] %IG 1.6 % 0.0 - 0.0 [facility] 0.0 % 0.0 - 0.0 [facility] al Neutrophils [#/volume] in Blood by Automated count 1.18 10^3/uL 2.00 - 6.90 L [facility] Lymphocytes [#/volume] in Blood by Automated count 0.94 10^3/uL 0.60 - 3.40 [facility] Monocytes [#/volume] in Blood by Automated count 0.18 10^3/uL 0.00 - 0.90 [facility] Eosinophils [#/volume] in Blood by Automated count 0.09 10^3/uL 0.00 - 0.70 [facility] Basophils [#/volume] in Blood by Automated count 0.00 10^3/uL 0.00 - 0.20 [facility] #IG 0.04 10^3/uL 0.00 - 0.10 [facility] #NRBC 0.00 10^3/uL 0.00 - 0.00 [facility] ospital MANUAL DIFF SEE BELOW [facility] ital Segmented neutrophils/100 leukocytes in Blood by Manual count 48 % 37 - 80 [facility] %LYMPH 47 % 25 - 40 H [facility] al %MONO 2 % 3 - 8 L [facility] al %EOS 1 % 0 - 7 [facility] al RBC MORPH SEE BELOW [facility] al Anisocytosis [Presence] in Blood by Light microscopy 1+ MANA L: NONE SEEN A [facility] HYPO 1+ NORMAL: NONE SEEN A [facility] { SICKLE CELL (NORMAL: NONE SEEN ) Platelet adequacy [Presence] in Blood by Light microscopy NORMAL NORMAL: NORMAL [facility] COMMENT: ID Date Data Source [id number] 07/19/2020 10:43:00 AM EDT [facility] Name Value Range Interpretation Code Description Data Berkley rce(s) Supporting Document(s) COMPREHENSIVE METABOLIC PANEL [facility] COMPREHENSIVE METABOLIC PANEL Sodium [Moles/volume] in Serum or Plasma 140 mEq/L 134 - 153 [facility] Potassium [Moles/volume] in Serum or Plasma 4.6 mEq/L 3.6 - 5.0 [facility] Chloride [Moles/volume] in Serum or Plasma 104 mEq/L 98 - 107 [facility] Carbon dioxide, total [Moles/volume] in Serum or Plasma 29 MEQ/L 22 - 30 [facility] Glucose [Mass/volume] in Serum or Plasma 105 MG/DL 70 - 99 H [facility] BUN 23 MG/DL 7 - 21 [facility] Creatinine [Mass/volume] in Serum or Plasma 0.9 MG/DL 0.7 - 1.5 [facility] BUN/CREAT 26 8 - 27 [facility] al Protein [Mass/volume] in Serum or Plasma 6.7 G/DL 6.3 - 8.2 [facility] Albumin [Mass/volume] in Serum or Plasma 4.5 G/DL 3.9 - 5.0 [facility] Globulin [Mass/volume] in Serum by calculation 2.2 GM/DL 2.4 - 3.2 L [facility] A/G RATIO 2.0 0.8 - 2.0 [facility] al Calcium [Mass/volume] in Serum or Plasma 9.3 MG/DL 8.4 - 10.2 [facility] Bilirubin.total [Mass/volume] in Serum or Plasma <0.7 MG/DL 0.2 - 1.3 [facility] Alkaline phosphatase [Enzymatic activity/volume] in Serum or Plasma 56 U/L 38 - 126 [facility] Aspartate aminotransferase [Enzymatic activity/volume] in Serum or Plasma 11 U/L 5 - 40 [facility] Alanine aminotransferase [Enzymatic activity/volume] in Seru m or Plasma 9 U/L 7 - 56 [facility] Anion gap 3 in Serum or Plasma 7.0 mmol/L 8.0 - 16.0 L [facility] 84 [facility] >60 mL/min [facility] ital AFR AMER GFR >60 [facility] Male GFR In terprentation 20-49 yrs >60 mL/min Normal 50-59 yrs >56 mL/min Normal 60-69 yrs >49 mL/min Normal 70-79yrs >42 mL/min Normal 80 and above >35 mL/min Normal Female GFR Interpretation 20-39 yrs >60 mL/min Normal 40-49 yrs >58 mL/min Normal 50-59 yrs >51 mL/min Normal 60-69 yrs >45 mL/min Normal 70-79 yrs >39 mL/min Normal 80 and above >32 mL/min Normal ID Date Data Source [id number] 04/07/2020 04:12:00 PM EST [facility] Name Value Range Interpretation Code Description Data Berkley rce(s) Supporting Document(s) Pathologist interpretation of Unspecified specimen tests COMMENT [facility] No significant immunophenotypic abnormal ity detected Annotation comment [Interpretation] Narrative WILL FOLLOW [facility] Lab Case Number WILL FOLLOW [facility] Specimen source [Identifier] of Unspecified specimen COMMENT [facility] Peripheral blood Assessment of Leukocytes COMMENT [facility] No monoclonal B cell population is detec constantino. kappa:lambda ratio 2.0There is no loss of, or aberrant expression of, the mata T cell antigens tosuggest a neoplastic T cell process.CD4:CD8 ratio 1.2CD57 positive T cells are increased but are composed of a mixture of TM5nhvptfwe cells and CD8 positive cells, most consistent with a reactiveprocess.Approximately 1% myeloblasts with normal phenotype are detected.There is no immunophenotypic evidence of abnormal myeloid maturation.Analysis of the leukocyte population shows: granulocytes 45%, monocytes 4%,lymphocytes 50%, blasts 1%, B cells 4%, T cells 30%, LGLs 19%, NK cells16%. Cellularity assessment [Interpretation] in Unspecified specimen by Flow cytometry (FC) Narrative WILL FOLLOW [facility] Viable cells/100 cells in Unspecified specimen COMMENT [facility] 92% Abnormal leukocytes/100 leukocytes in Un specified specimen by Flow cytometry (FC) WILL FOLLOW [facility] Analysis and [employer] COMMENT [facility] 8 color analysis with CD45/SSC Immunophenotyping study COMMENT [facility] CD2 Normal CD3 Mana lCD4 Normal CD5 NormalCD7 Normal CD8 MncdwxHV60 Normal CD11b DukajaAS99 Normal CD14 FlgdhpPC13 Normal CD19 JwqmxbPG17 Normal CD33 JzhrwxSO45 Normal CD38 MpgqdzHO87 Normal CD56 QiysppVJ82 Normal CD117 NormalHLA-DR Normal KAPPA NormalLAMBDA Normal CD64 Normal Pathologist name COMMENT [facility] Mishel Brumfield M.D.WILL FOLLOWMAMI Wade Reason for referral (narrative) WILL FOLLOW [facility] Clinical information COMMENT [facility] A recent CBC has been reviewed in prepar ing this report.It shows anemia. Laboratory comment [Text] in Report Narrative COMMENT [facility] Each antibody in this assay was utilized to assess for potentialabnormalities of studied cell populations or to characterizeidentified abnormalities.This test was developed and its performance characteristics determinedby [facility]. It has not been cleared or approved by the U.S. Food andDrug Administration.The FDA has determined that such clearance or approval is notnecessary. This test is used for clinical purposes. It should not beregarded as investigational or for research. ID Date Data Source [id number] 04/02/2020 01:37:[address] [facility] [place] [address] [address] FOLLOW UP NOTENAME: ELIZABETH LAWRENCE CPHYSICIAN: ROSANNA ORDONEZATE OF SERVICE: 03/31/20DATE OF : 31CCOUNT #: [id number]: ELIZABETH LAWRENCEDate: Mar 31OB: [birth year]hysician: Francisco OrdonezBSilS.Age: 84Note Title: Follow UpDiagnosis:Primary - R79.1 - Abnormal coagulation profile, Diagnosed 2019 (Active)Primary - D72.819 - Decreased white blood cell count, unspecified,Diagnosed 2019 (Active)Primary - D72.820 - Lymphocytosis (symp tomatic), Diagnosed 2019 (Active)Primary - D64.9 - Anemia, unspecified, Diagnosed 2018 (Active)Primary - - Thrombocytosis, Diagnosed May 31, 2014 (Active)Problems / Chief Complaint:Follow-upHistory of Present Illness:PROBLEM LIST#1. Stroke in April 2013. Presented with weakness and falls. CT of thehead on April 20, 2013 with old small right parietal lobe, lacunar infarct,small vessel ischemic disease and mild volume loss.#2, platelet count elevated to 981K On December 25, 2013.#3. 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 Discontinuedsecondary to soreness of hands and feet and mouth sores.#5, started anagrelide 0.5 mg twice daily on May 22, 2014.Anagrelideincreased to TID 2015#6. March 2019-admitted for hip fracture.April 2019-readmitted for influenza.7. Evaluation of bleeding February 10, 2020 hemoglobin 11.2 hematocrit 33.4WBC 2.9 platelets 346 differential neutrophils 33% lymphocytes 50% atypicallymphocytes 7% monocytes 4% eosinophils 6% CMP WNL8. February 15, 2020 hemoglobin 11 hematocrit 33 WBC 2.6 platelets 275neutrophils 43% l ymphocytes 45% monocytes 7% eosinophils 4%Prothrombin time 14.2 seconds INR 1.05 PTT normal at 36.7 seconds D-dimerelevated at 0.65 and fibrinogen normal at 298Platelet function analysis collagen epinephrine time elevated at 202 secondscollagen ADP time is listed as pending9. 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 She has a history of hypertension, arthr itis,osteoporosis, and TIA. Found to have an elevated platelet count of 981k. OnDecember 25, 2013.She was admitted to [facility] on April 20, 2013 when shepresented with weakness and falls. CT scan of the head on April 20, 2013showed old small right parietal lobe, lacunar infarct, small vessel ischemicdisease and mild volume loss. It is unknown if her platelet count was elevatedat that time. The patient had REGINA 2 mutation tested which was negative. Therewas no evidence of exon 12 or exon 13 Mutations. Testing for MPL W515 and [id number] mutation was also negative. There was no evidence of elevated ferritin,and platelet count remained elevated at between 820-829. 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 Thepatient developed hand-foot syndrome shortly after taking hydroxyurea. Shealso had mouth sores. All of her symptoms resolved after stopping the drug.The decision was made to start anagrelide.INTERVAL HISTORY:Patient informed consent for telemedicinePatient was explained the telehealth process in simple language that he/shecould understand. We described the expected risks and benefits of thetelehealth services. We discussed available alternatives. We discussed therisks of use of technology and the risk of distance and limitation of inabilityto do a hands on examination. We also discussed the risks of possible breach ofhealth information systems specialist while using technology. After this discussionpatient gave verbal informed consent for the se of telemedicine.Visit: March 31art time: 1140Stop time 1200 AMThe patient reports that she has done some research on the computer and is nowtaking curcumin, saffron with oatmeal and cinnamon. She states that she haseaten well all her life but has been more lax recently and is trying to catchup. She fixes all her own food. She generally tends to eat well and includesbarley, red pepper, hao, spinach, yogurt and almonds in her diet. Deniesweight loss. Complains of slow urination but states that she does not drinkenough and is making an effort to drink more.I did inform the patient that the specimen for flow cytometry had beencompromised and needed to be resubmitted.Past Medical History:ArthritisHypertensionOsteoporosisTIA (transient ischemic attack) (last winter saw orbs and stars in field ofvision, had a fall x2, stayed at home because felt better, symp resolved in 24hrs. Had left sided weakness for 2 months. 2013)Bowel obstruction in 2018[place] Surgical History:Breast biopsyHyste rectomy - [facility] in [place], also did bladder lift.Surgery for fracture of - Leg and Compression Fractures in back.Right hip ORIF in 2019Colonoscopy in llergies:No Known Allergies.Current Medications:Anagrelide HCl (0.5 mg) Capsule Oral Take as Directed (Jan 25, 2016)Anagrelide HCl (0.5 mg) Capsule Oral Take as Directed (Dec 09, 2014 -approx.)Biotin (5000 mcg) Capsule Oral daily (Start Date - unknown)CVS Iron 1 Tablet (of 325 (65 fe) mg) Oral daily (Start Date - unknown)Calcium 1 Tablet Oral daily (Start Date - unknown)Isosorbide Dinitrate ER 1 Tablet (of 40 mg) Tablet, controlled release Oraldaily (Start Date - unknown)Loperamide HCl 0.5 Tablet (of 2 mg) Capsule Oral b.i.d. (Start Date - unknown)Losartan Potassium 50 mg Tablet Oral daily (Start Date - unknown)Vitamin C 1,000 mg Tablet Oral b.i.d. 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 She is an active drinker.Ms. LAWRENCE reports no contact with [facility].Ms. LAWRENCE reports the following support systems: lives alone. Her dietconsists of regular meals. She indicates her activity level as: occasionalexercise. Rare Alcohol use.Family History:Ms. LAWRENCE's mother is : cancer history consists of Rectal cancer atage 90. Ms. LAWRENCE's father is : cardiovascular disease, and stroke. 5brothers- 2 had leukemia, 1 had acute leukemia at age 69., the other was 92.Brother with prostate cancer with mets to bone.Review of Systems:ConstitutionalAbnormal - wt stableAllergic/ImmunologicNormal - No reactions.EyesAbnormal - still has blurry vision with reading.ENMTAbnormal - Hearing aids.EndocrineNormal - No diabetes, thyroid disease or hormone replacement. No hot flashesor night sweats.Hematologic/LymphaticAbnormal - easy bruising. The patient denies any tender or palpable lymphnodes.RespiratoryAbnormal - No dyspnea on exertion, chest pain, cough or hemoptysis.Air is dryand keeps water on registers. Gets dry cough if dryCardiovascularNormal - No anginal chest pain, palpitations or orthopnea.GastrointestinalAbnormal - No GI bleeding, or constipation. No change in bowel habits, noheartburn or early satiety.Nausea and vomiting with milk. Diarrhea controlledwith ImodiumGenitourinary (F)Normal - No abnormal genital masses. No hematuria, hesitancy, incontinence,vaginal bleeding, discharge or other problems with urination.MusculoskeletalAbnormal - pain n right groin, much better, doing exercises at homeIntegumentaryAbnormal - psoriasisNeurologicAbnormal - numbness in right hand, alwaysPsychiatricAbnormal - if stays busy all day sleeps through the night.Vital Signs:Vitals are not available for this patient.Performance Status:1 - No physically strenuous activity, but ambulatory and able to carry outlight or sedentary work (e.g. office work, light house work). (ECOG)Physical Exam:Physical Exam-Author is not available for this patient.Laboratory:Most recent lab results are not available for this patient.Other test results are not available for this patient.Impression:#1. Essential thrombocytosis.#2. Hypertension.#3. History of stroke.#4. Use of [id number] supplementsPlan:#1. 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 Platelet count is adequatelycontrolled.#2 anemia-February 10, 2020 hemoglobin 11.2 hematocrit 33.4 WBC 2.9 [id number] differential neutrophils 33% lymphocytes 50% atypical lymphocytes 7%monocytes 4% eosinophils 6% CMP WNLSlight improvement in hemoglobin level.History of hypoproliferative anemia.For further work-up patient would need a bone marrow aspirate and biopsy butsince hemoglobin is stable over 10 will hold off on that for now and continueobservation and consider further interval mention if hemoglobin drops below 10.3. Bilateral lung crackles on exam patient denies any dyspnea or cough.Willhold off on evaluation for now. Patient already has follow-up withcardiologist Dr. Holland.At this point patient appears to have a hypoproliferative anemia. For furtherwork-up patient would need a bone marrow aspirate and biopsy but sincehemoglobin is stable over 10 will hold off on that for now and continueobservation and consider further interval mention if hemoglobin drops below 10.4. New onset of leukopenia and neutropenia unclear etiology. Patient stillhas leukopenia although WBC count has improved from 2.6 2.9. Hemoglobin hasdropped from 11 10.3. Patient was informed that her flow cytometry specimenneeded to be resubmitted and I will follow-up with her in 2 weeks.5. Bleeding disorder PT and PTT were normal. Fibrinogen level was no rmal.Thrombin time was never done. Platelet function analysis was performed butonly the collagen epinephrine time has been provided which was prolonged.As the patient's bleeding problems have improved off aspirin that appears lowell the most likely cause of her bleeding issues. She will continue off aspirinat this time.Electronically signed by:Marli PennvaCC:Dr. Alber Bowden [place] Name Value Range Interpretation Code Description Data Berkley rce(s) Supporting Document(s) ID Date Data Source [id number] 03/24/2020 12:13:[address] [facility] [place] Name Value Range Interpretation Code Description Data Berkley rce(s) Supporting Document(s) COMPREHENSIVE METABOLIC PANEL [facility] COMPREHENSIVE METABOLIC PANEL Sodium [Moles/volume] in Serum or Plasma 137 mEq/L 134 - 153 [facility] Potassium [Moles/volume] in Serum or Plasma 4.4 mEq/L 3.6 - 5.0 [facility] Chloride [Moles/volume] in Serum or Plasma 100 mEq/L 98 - 107 [facility] Carbon dioxide, total [Moles/volume] in Serum or Plasma 30 MEQ/L 22 - 30 [facility] Glucose [Mass/volume] in Serum or Plasma 98 MG/DL 65 - 110 [facility] BUN 26 MG/DL 7 - [facility] Creatinine [Mass/volume] in Serum or Plasma 1.0 MG/DL 0.7 - 1.5 [facility] BUN/CREAT 26 8 - 27 [facility] Protein [Mass/volume] in Serum or Plasma 6.3 G/DL 6.3 - 8.2 [facility] Albumin [Mass/volume] in Serum or Plasma 4.4 G/DL 3.9 - 5.0 [facility] Globulin [Mass/volume] in Serum by calculation 1.9 GM/DL 2.4 - 3.2 L [facility] A/G RATIO 2.3 0.8 - 2.0 [facility] Calcium [Mass/volume] in Serum or Plasma 9.0 MG/DL 8.4 - 10.2 [facility] Bilirubin.total [Mass/volume] in Serum or Plasma <0.7 MG/DL 0.2 - 1.3 [facility] Alkaline phosphatase [Enzymatic activity/volume] in Serum or Plasma 57 U/L 38 - 126 [facility] Aspartate aminotransferase [Enzymatic activity/volume] in Serum or Plasma 10 U/L 5 - 40 [facility] Alanine aminotransferase [Enzymatic activity/volume] in Seru m or Plasma 6 U/L 7 - 56 L [facility] Anion gap 3 in Serum or Plasma 7.0 mmol/L 8.0 - 16.0 L [facility] AGE [address] [facility] NON-AA GFR 56 mL/min [facility] sylvia AFR AMER GFR >60 [facility] Male GFR In terprentation 20-49 yrs >60 mL/min Normal 50-59 yrs >56 mL/min Normal 60-69 yrs >49 mL/min Normal 70-79yrs >42 mL/min Normal 80 and above >35 mL/min Normal Female GFR Interpretation 20-39 yrs >60 mL/min Normal 40-49 yrs >58 mL/min Normal 50-59 yrs >51 mL/min Normal 60-69 yrs >45 mL/min Normal 70-79 yrs >39 mL/min Normal 80 and above >32 mL/min Normal ID Date Data Source [id number] 03/24/2020 11:30:00 AM EST [facility] Name Value Range Interpretation Code Description Data Berkley rce(s) Supporting Document(s) CBC W/AUTOMATED DIFF [facility] COMPLETE BLOOD COUNT Leukocytes [#/volume] in Blood by Automated count 2.9 10^3/uL 4.2 - 1 1.0 L [facility] Erythrocytes [#/volume] in Blood by Automated count 2.96 10^6/uL 4. 20 - 5.40 L [facility] Hemoglobin [Mass/volume] in Blood 10.3 g/dL 12.0 - 16.0 L [facility] Hematocrit [Volume Fraction] of Blood by Automated count 30.8 % 3 7.0 - 47.0 L [facility] Erythrocyte mean corpuscular volume [Entitic volume] b y Automated count 104.1 fL 81.0 - 101 H [facility] Erythrocyte mean corpuscular hemoglobin [Entitic mass] by Automated count 34.8 pg 27.0 - 34.0 H [facility] Erythrocyte mean corpuscular hemoglobin concentration [Mass/volume] by Automated count 33.4 g/dL 31.0 - 36.0 [facility] Erythrocyte distribution width [Ratio] by Automated count 15.1 % 11.5 - 14.5 H [facility] Platelets [#/volume] in Blood by Automated count 274 10^3/uL 150 - 45 0 [facility] Platelet mean volume [Entitic volume] in Blood by Automated count 11.2 fL 7.4 - 10.4 H [facility] Neutrophils/100 leukocytes in Blood by Automated count 41.4 % 37. 0 - 80.0 [facility] Lymphocytes/100 leukocytes in Blood by Manual count 44.7 % 25.0 - 40.[address] [facility] Monocytes/100 leukocytes in Blood by Automated count 7.8 % 3.0 - 8.0 [facility] Eosinophils/100 leukocytes in Blood by Automated count 4.4 % 0.0 - 7.0 [facility] Basophils/100 leukocytes in Blood by Automated count 0.3 % 0.0 - 2.5 [facility] %IG 1.4 % 0.0 - 0.0 [facility] %NRBC 0.0 % 0.0 - 0.0 [facility] Neutrophils [#/volume] in Blood by Automated count 1.21 10^3/uL 2.00 - 6.90 L [facility] Lymphocytes [#/volume] in Blood by Automated count 1.31 10^3/uL 0.60 - 3.40 [facility] Monocytes [#/volume] in Blood by Automated count 0.23 10^3/uL 0.00 - 0.90 [facility] Eosinophils [#/volume] in Blood by Automated count 0.13 10^3/uL 0.00 - 0.70 [facility] Basophils [#/volume] in Blood by Automated count 0.01 10^3/uL 0.00 - 0.20 [facility] #IG 0.04 10^3/uL 0.00 - 0.10 [facility] #NRBC 0.00 10^3/uL 0.00 - 0.00 [facility]ital MANUAL DIFF SEE BELOW [facility] Segmented neutrophils/100 leukocytes in Blood by Manual count 42 % 37 - 80 [facility] %LYMPH 48 % 25 - 40 [facility] %MONO 4 % 3 - 8 [facility] %EOS 6 % 0 - 7 [facility] RBC MORPH NOT INDICATED [facility] ID Date Data Source [id number] 02/20/2020 11:40:00 AM EST [facility] [address] [address] FOLLOW UP NOTENAME: ELIZABETH LAWRENCE CPHYSICIAN: ROSANNA ORDONEZATE OF SERVICE: 02/19/20DATE OF : 31CCOUNT #: [id number]: ELIZABETH LAWRENCEDate: Feb 19, 2020DOB: [birth year]hysician: Francisco OrdonezBSilSSilAge: 84Note Title: Hematology Follow UpDiagnosis:Primary - R79.1 - Abnormal coagulation profile, Diagnosed 2019 (Active)Primary - D72.819 - Decreased white blood cell count, unspecified,Diagnosed 2019 (Active)Primary - D72.820 - Lymphocytosis (symptomatic), Diagnosed 2019 (Active)Primary - D64.9 - Anemia, unspecified, Diagnosed 2018 (Active)Primary - - Thrombocytosis, Diagnosed May 31, 2014 (Active)Problems / Chief Complaints:Follow-up for prolonged bleedingHistory of Present Illness:PROBLEM LIST#1. Stroke in April 2013. Presented with weakness and falls. CT of thehead on April 20, 2013 with old small right parietal lobe, lacunar infarct,small vessel ischemic disease and mild volume loss.#2, platelet count elevated to 981K On December 25, 2013.#3. REGINA 2 V617F, exon 12 mutation and exon 13 mutation was not d etected.MPL W515 and MPL S505 mutation not detected.#4, started on hydroxyurea 500 mg by mouth twice a day. Discontinuedsecondary to soreness of hands and feet and mouth sores.#5, started anagrelide 0.5 mg twice daily on May 22, 2014.Anagrelideincreased to TID 2015#6. March 2019-admitted for hip fracture.April 2019-readmitted for influenza.7. Evaluation of bleeding February 10, 2020 hemoglobin 11.2 hematocrit 33.4WBC 2.9 platelets 346 differential neutrophils 33% lymphocytes 50% atypicallymphocytes 7% monocytes 4% eosinophils 6% CMP WNL8. 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 She has a history of hypertension, arthritis,osteoporosis, and TIA. Found to have an elevated platelet count of 981k. OnDecember 25, 2013.She was [facility] to [facility] on [facility] 20, 2013 when shepresented with weakness and falls. CT scan of the head on April 20, 2013showed old small right parietal lobe, lacunar infarct, small vessel ischemicdisease and mild volume loss. It is unknown if her platelet count was elevatedat that time. The patient had REGINA 2 mutation tested which was negative. Therewas no evidence of exon 12 or exon 13 Mutations. Testing for MPL W515 and GAMO891 mutation was also negative. There was no evidence of elevated ferritin,and platelet count remained elevated at between 820-829. 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 Thepatient developed hand-foot syndrome shortly after taking hydroxyurea. Shealso had mouth sores. All of her symptoms resolved after stopping the drug.The decision was made to start anagrelide.INTERVAL HISTORY:Patient informed consent for telemedicinePatient was explained the telehealth process in simple language that he/shecould understand. We described the expected risks and benefits of thetelehealth services. We discussed available alternatives. We discussed therisks of use of technology and the risk of distance and limitation of inabilityto do a hands on examination. We also discussed the risks of possible breach ofhealth information systems specialist while using technology. After this discussionpatient gave verbal informed consent for the use of telemedicine.Visit: February 18art time: 9 AMStop time 9:20 AMAfter the patient's last appointment she was asked to stop aspirin. Patientstates that she has not noticed any significant bleeding or bruising sincethen. No other change. No fever or chills.Past Medical History:ArthritisHypertensionOsteoporosisTIA (transient ischemic attack) (last winter saw orbs and stars in field ofvision, had a fall x2, stayed at home because felt better, symp resolved in 24hrs. Had left sided weakness for 2 months. 2013)Bowel obstruction in 2018[place] Surgical History:[facility]Hy[facility] [place], also did bladder lift.Surgery for fracture of - Leg and Compression Fractures in back.Right hip ORIF in 20 20Colonoscopy in 2015Allergies:No Known Allergies.Current Medications:Anagrelide HCl (0.5 mg) Capsule Oral Take as Directed (Jan 25, 2016)Anagrelide HCl (0.5 mg) Capsule Oral Take as Directed (Dec 09, 2014 -approx.)Biotin (5000 mcg) Capsule Oral daily (Start Date - unknown)[facility] Iron 1 Tablet (of 325 (65 fe) mg) Oral daily (Start Date - unknown)Calcium 1 Tablet Oral daily (Start Date - unknown)Isosorbide Dinitrate ER 1 Tablet (of 40 mg) Tablet, controlled release Oraldaily (Start Date - unknown)Loperamide HCl 0.5 Tablet (of 2 mg) Capsule Oral b.i.d. (Start Date - unknown)Losartan Potassium 50 mg Tablet Oral daily (Start Date - unknown)Vitamin C 1,000 mg Tablet Oral b.i.d. 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 She is an active drinker.[facility]Ms. LAWRENCE reports the following support systems: lives alone. Her dietconsists of regular meals. She indicates her activity level as: occasionalexercise. Rare Alcohol use.Family History:Ms. LAWRENCE's mother is : cancer history consists of Rectal cancer atage 90. Ms. LAWRENCE's father is : cardiovascular disease, and stroke. 5brothers- 2 had leukemia, 1 had acute leukemia at age 69., the other was 92.Brother with prostate cancer with mets to bone.Review of Systems:Constitutionalwt loss 5 lbsAllergic/ImmunologicNo reactions.Eyesstill has blurry vision with reading.ENMTHearing aids.EndocrineNo diabetes, thyroid disease or hormone replacement. No hot flashes or nightsweats.Hematologic/Lymphaticeasy bruising. The patient denies any tender or palpable lymph nodes.RespiratoryNo dyspnea on exertion, chest pain, cough or hemoptysis.CardiovascularNo anginal chest pain, palpitations or orthopnea.GastrointestinalNo GI bleeding, or constipation. No change in bowel habits, no heartburn orearly satiety.Nausea and vomiting with milk. Diarrhea controlled with ImodiumGenitourinary (F)No abnormal genital masses. No hematuria, hesitancy, incontinence, vaginalbleeding, discharge or other problems with urination.Musculoskeletalpain n right groin, much better, doing exercises at homeIntegumentarypsoriasisNeurologicnumbness in right hand, alwaysPsychiatricif stays busy all day sleeps through the night.Vital Signs:Vitals are not available for this patient.Performance Status:1 - No physically strenuous activity, but ambulatory and able to carry outlight or sedentary work (e.g. office work, light house work). (ECOG)Physical Exam:Physical Exam-Comments is not available for this patient.Laboratory:Most recent lab results are not available for this patient.Other test results are not available for this patient.Impression:#1. Essential thrombocytosis.#2. Hypertension.#3. History of stroke.#4. Use of [id number] supplementsPlan:#1. 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 Platelet count is adequatelycontrolled.#2 anemia- February 10, 2020 hemoglobin 11.2 hematocrit 33.4 WBC 2.9 [id number] differential neutrophils 33% lymphocytes 50% atypical lymphocytes 7%monocytes 4% eosinophils 6% CMP WNLSlight improvement in hemoglobin level.History of hypoproliferative anemia.For further work-up patient would need a bone marrow aspirate and biopsy butsince hemoglobin is stable over 10 will hold off on that for now and continueobservation and consider further interval mention if hemoglobin drops below 10.3. Bilateral lung crackles on exam patient denies any dyspnea or cough.Willhold off on evaluation for now. Patient already has follow-up withcardiologist Dr. Skyler.At this point patient appears to have a hypoproliferative anemia. For furtherwork-up patient would need a bone marrow aspirate and biopsy but sincehemoglobin is stable over 10 will hold off on that for now and continueobservation and consider further interval mention if hemoglobin drops below 10.4. New onset of leukopenia and neutropenia unclear etiology. Patient doesnot appear to have had a viral infection. There is evidence of relativelymphocytosis but patient does not report any lymphadenopathy or symptomssuggestive of hepatosplenomegaly.Repeat CBC showed continued evidence of leukopenia. Evidence of relativelymphocytosis. Peripheral blood flow cytometry was apparently drawn but isstill pending.5. Bleeding disorder PT and PTT were normal. Fibrinogen level was normal.Thrombin time was never done. Platelet function analysis was performed butonly the collagen epinephrine time has been provided which was prolonged.As the patient's bleeding problems have improved off aspirin that appears lowell the most likely cause of her bleeding issues. She will continue off aspirinat this time.Electronically signed by:Marli PennvaCC:Dr. Alber [place] Name Value Range Interpretation Code Description Data Berkley rce(s) Supporting Document(s) ID Date Data Source [id number] 02/19/2020 07:04:[address] [facility] [place] Name Value Range Interpretation Code Description Data Berkley rce(s) Supporting Document(s) LAB - SPECIMEN REJECTION [facility] Specimen Integrity/Specimen Recollection The patient sample needs to be resubmitted for the following reason: Test(s) Ordered LEUKEMIA/LYMPHOMA [facility] Rejection Reason Sample Compromised [facility] { One or more of the tests you ordered cannot be performed.{ Please recollect, reorder, and resubmit if needed. ID Date Data Source [id number] 02/16/2020 01:03:[address] [facility] [place] Name Value Range Interpretation Code Description Data Berkley rce(s) Supporting Document(s) PT/PTT [facility] APPENDED REPORT Prothrombin time (PT) 14.2 SECONDS 11.0 - 15.5 [facility] INR in Platelet poor plasma by Coagulation assay 1.05 0.93 - 1. 23 [facility] \\BLDo\\INR INTERPRETATION\\BLDx\\ Therapeutic range for Coumadin and related oral anticoagulants. - International Normalized Ratio (INR): 2.0 - 3.0 for Venous Thrombosis, Pulmonary Embolus, Tissue heart valves, Acute ME Atrial Fibrillation, Valvular heart disease and recurrent Systemic Embolism. - International Normalized Ratio (INR): 2.5 - 3.5 for Mechanical Prosthetic valve. aPTT in Blood by Coagulation assay 36.7 SECONDS 24.8 - 36.7 [facility] Therapeutic range for Coumadin and related oral anticoagulants. -International Normalized Ratio (INR): 2.0 - 3.0 for Venous Thrombosis, Pulmonary Embolus, Tissue heart valves, Acute ME Atrial Fibrillation, Valvular heart disease and recurrent Systemic Embolism. -International Normalized Ratio (INR): 2.5 - 3.5 for Mechanical Prosthetic valve. 02/15/20.1105.TAD.COMPLETE 02/15/20.1105.TAD.to PIERO via fax 02/16/20.1106. .REVIEWED ID Date Data Source [id number] 02/15/2020 01:35:[address] [facility] [place] Name Value Range Interpretation Code Description Data Berkley rce(s) Supporting Document(s) PFA [facility] _PLATELET FUNCTION ASSAY_ [place] [address] CLIA # [id number] SEE SCANNED REPORT ID Date Data Source [id number] 02/15/2020 12:28:[address] [facility] [place] Name Value Range Interpretation Code Description Data Berkley rce(s) Supporting Document(s) CBC W/AUTOMATED DIFF [facility] COMPLETE BLOOD COUNT Leukocytes [#/volume] in Blood by Automated count 2.6 10^3/uL 4.2 - 1 1.0 L [facility] Erythrocytes [#/volume] in Blood by Automated count 3.18 10^6/uL 4. 20 - 5.40 L [facility] Hemoglobin [Mass/volume] in Blood 11.0 g/dL 12.0 - 16.0 L [facility] Hematocrit [Volume Fraction] of Blood by Automated count 32.9 % 3 7.0 - 47.0 L [facility] Erythrocyte mean corpuscular volume [Entitic volume] b y Automated count 103.5 fL 81.0 - 101 H [facility] Erythrocyte mean corpuscular hemoglobin [Entitic mass] by Automated count 34.6 pg 27.0 - 34.0 H [facility] Erythrocyte mean corpuscular hemoglobin concentration [Mass/volume] by Automated count 33.4 g/dL 31.0 - 36.0 [facility] Erythrocyte distribution width [Ratio] by Automated count 14.9 % 11.5 - 14.5 H [facility] Platelets [#/volume] in Blood by Automated count 275 10^3/uL 150 - 45 0 [facility] Platelet mean volume [Entitic volume] in Blood by Automated count 10.9 fL 7.4 - 10.4 H [facility] Neutrophils/100 leukocytes in Blood by Automated count 42.9 % 37. 0 - 80.0 [facility] Lymphocytes/100 leukocytes in Blood by Manual count 44.8 % 25.0 - 40.0 H [facility] Monocytes/100 leukocytes in Blood by Automated count 7.3 % 3.0 - 8.0 [facility] Eosinophils/100 leukocytes in Blood by Automated count 4.2 % 0.0 - 7.0 [facility] Basophils/100 leukocytes in Blood by Automated count 0.4 % 0.0 - 2.5 [facility] %IG 0.4 % 0.0 - 0.0 [facility] %NRBC 0.0 % 0.0 - 0.0 [facility] Neutrophils [#/volume] in Blood by Automated count 1.11 10^3/uL 2.00 - 6.90 L [facility] Lymphocytes [#/volume] in Blood by Automated count 1.16 10^3/uL 0.60 - 3.40 [facility] Monocytes [#/volume] in Blood by Automated count 0.19 10^3/uL 0.00 - 0.90 [facility] Eosinophils [#/volume] in Blood by Automated count 0.11 10^3/uL 0.00 - 0.70 [facility] Basophils [#/volume] in Blood by Automated count 0.01 10^3/uL 0.00 - 0.20 [facility] #IG 0.01 10^3/uL 0.00 - 0.10 [facility] #NRBC 0.00 10^3/uL 0.00 - 0.00 [facility] MANUAL DIFF SEE BELOW [facility] Segmented neutrophils/100 leukocytes in Blood by Manual count 39 % 37 - 80 [facility] BAND 2 % 0 - 5 [facility] %LYMPH 46 % 25 - 40 H [facility] %MONO 2 % 3 - 8 L [facility] %EOS 5 % 0 - 7 [facility] GIANCARLO LYM 6 % [facility] RBC MORPH SEE BELOW [facility] Anisocytosis [Presence] in Blood by Light microscopy 1+ MANA L: NONE SEEN A [facility] Macrocytes [Presence] in Blood by Light microscopy 1+ NORMAL: NONE SEEN A [facility] { SICKLE CELL (NORMAL: NONE SEEN ) Platelet adequacy [Presence] in Blood by Light microscopy NORMAL NORMAL: NORMAL [facility] COMMENT: _MANY_GIANT_PLATELETS_OBSER VED 02/15/20.1228.TAD. ID Date Data Source [id number] 02/15/2020 11:07:[address] [facility] [place] Name Value Range Interpretation Code Description Data Berkley rce(s) Supporting Document(s) Fibrin D-dimer FEU [Mass/volume] in Platelet poor plasma 0.65 ug /mL 0.27 - 0.50 H [facility] ID Date Data Source [id number] 02/15/2020 11:07:[address] [facility] [place] Name Value Range Interpretation Code Description Data Berkley rce(s) Supporting Document(s) Fibrinogen [Mass/volume] in Platelet poor plasma by Co agulation assay 298.0 mg/dL 179 - 506 [facility] ID Date Data Source [id number] 02/11/2020 11:18:[address] [facility] [place] Name Value Range Interpretation Code Description Data Berkley rce(s) Supporting Document(s) COMPREHENSIVE METABOLIC PANEL [facility] COMPREHENSIVE METABOLIC PANEL Sodium [Moles/volume] in Serum or Plasma 141 mEq/L 134 - 153 [facility] Potassium [Moles/volume] in Serum or Plasma 4.7 mEq/L 3.6 - 5.0 [facility] Chloride [Moles/volume] in Serum or Plasma 106 mEq/L 98 - 107 [facility] Carbon dioxide, total [Moles/volume] in Serum or Plasma 30 MEQ/L 22 - 30 [facility] Glucose [Mass/volume] in Serum or Plasma 103 MG/DL 65 - 110 [facility] BUN 22 MG/DL 7 - [facility] Creat[facility] [Mass/volume] in Serum or Plasma 1.0 MG/DL 0.7 - 1.5 [facility] BUN/CREAT 22 8 - 27 [facility] Protein [Mass/volume] in Serum or Plasma 6.3 G/DL 6.3 - 8.2 [facility] Albumin [Mass/volume] in Serum or Plasma 4.5 G/DL 3.9 - 5.0 [facility] Globulin [Mass/volume] in Serum by calculation 1.8 GM/DL 2.4 - 3.2 L [facility] A/G RATIO 2.5 0.8 - 2.0 H [facility] Calcium [Mass/volume] in Serum or Plasma 9.6 MG/DL 8.4 - 10.2 [facility] Bilirubin.total [Mass/volume] in Serum or Plasma <0.7 MG/DL 0.2 - 1.3 [facility] Alkaline phosphatase [Enzymatic activity/volume] in Serum or Plasma 56 U/L 38 - 126 [facility] Aspartate aminotransferase [Enzymatic activity/volume] in Serum or Plasma 11 U/L 5 - 40 [facility] Alanine aminotransferase [Enzymatic activity/volume] in Seru m or Plasma 7 U/L 7 - 56 [facility] Anion gap 3 in Serum or Plasma 5.0 mmol/L 8.0 - 16.0 L [facility] AGE [address] [facility] NON-AA GFR 56 mL/min [facility] sylvia AFR AMER GFR >60 [facility] Male GFR In terprentation 20-49 yrs >60 mL/min Normal 50-59 yrs >56 mL/min Normal 60-69 yrs >49 mL/min Normal 70-79yrs >42 mL/min Normal 80 and above >35 mL/min Normal Female GFR Interpretation 20-39 yrs >60 mL/min Normal 40-49 yrs >58 mL/min Normal 50-59 yrs >51 mL/min Normal 60-69 yrs >45 mL/min Normal 70-79 yrs >39 mL/min Normal 80 and above >32 mL/min Normal ID Date Data Source [id number] 02/11/2020 10:46:00 AM EST [facility] Name Value Range Interpretation Code Description Data Berkley rce(s) Supporting Document(s) CBC W/AUTOMATED DIFF [facility] COMPLETE BLOOD COUNT Leukocytes [#/volume] in Blood by Automated count 2.7 10^3/uL 4.2 - 1 1.0 L [facility] Erythrocytes [#/volume] in Blood by Automated count 3.19 10^6/uL 4. 20 - 5.40 L [facility] Hemoglobin [Mass/volume] in Blood 10.9 g/dL 12.0 - 16.0 L [facility] Hematocrit [Volume Fraction] of Blood by Automated count 33.1 % 3 7.0 - 47.0 L [facility] Erythrocyte mean corpuscular volume [Entitic volume] b y Automated count 103.8 fL 81.0 - 101 H [facility] Erythrocyte mean corpuscular hemoglobin [Entitic mass] by Automated count 34.2 pg 27.0 - 34.0 H [facility] Erythrocyte mean corpuscular hemoglobin concentration [Mass/volume] by Automated count 32.9 g/dL 31.0 - 36.0 [facility] Erythrocyte distribution width [Ratio] by Automated count 14.8 % 11.5 - 14.5 H [facility] Platelets [#/volume] in Blood by Automated count 342 10^3/uL 150 - 45 0 [facility] Platelet mean volume [Entitic volume] in Blood by Automated count 10.4 fL 7.4 - 10.4 [facility] Neutrophils/100 leukocytes in Blood by Automated count 40.0 % 37. 0 - 80.0 [facility] Lymphocytes/100 leukocytes in Blood by Manual count 44.5 % 25.0 - 40.0 H [facility] Monocytes/100 leukocytes in Blood by Automated count 7.5 % 3.0 - 8.0 [facility] Eosinophils/100 leukocytes in Blood by Automated count 7.2 % 0.0 - 7.0 H [facility] Basophils/100 leukocytes in Blood by Automated count 0.4 % 0.0 - 2.5 [facility] %IG 0.4 % 0.0 - 0.0 H [facility] al %NRBC 0.0 % 0.0 - 0.0 [facility] al Neutrophils [#/volume] in Blood by Automated count 1.06 10^3/uL 2.00 - 6.90 L [facility] Lymphocytes [#/volume] in Blood by Automated count 1.18 10^3/uL 0.60 - 3.40 [facility] Monocytes [#/volume] in Blood by Automated count 0.20 10^3/uL 0.00 - 0.90 [facility] Eosinophils [#/volume] in Blood by Automated count 0.19 10^3/uL 0.00 - 0.70 [facility] Basophils [#/volume] in Blood by Automated count 0.01 10^3/uL 0.00 - 0.20 [facility] #IG 0.01 10^3/uL 0.00 - 0.10 [facility] #NRBC 0.00 10^3/uL 0.00 - 0.00 [facility] MANUAL DIFF SEE BELOW [facility] Segmented neutrophils/100 leukocytes in Blood by Manual count 43 % 37 - 80 [facility] %LYMPH 46 % 25 - [address] [facility] %MONO 7 % 3 - 8 [facility] %EOS 4 % 0 - 7 [facility] RBC MORPH SEE BELOW [facility] { SICKLE CELL 0 (NORMAL: NONE SEEN ) Platelet adequacy [Presence] in Blood by Light microscopy NORMAL NORMAL: NORMAL [facility] COMMENT: _FEW_GIANT_PLATELETS 02/11/20.1046.CLD. ID Date Data Source [id number] 02/10/2020 11:17:00 AM EST [facility] Name Value Range Interpretation Code Description Data Berkley rce(s) Supporting Document(s) COMPREHENSIVE METABOLIC PANEL [facility] COMPREHENSIVE METABOLIC PANEL Sodium [Moles/volume] in Serum or Plasma 138 mEq/L 134 - 153 [facility] Potassium [Moles/volume] in Serum or Plasma 4.8 mEq/L 3.6 - 5.0 [facility] Chloride [Moles/volume] in Serum or Plasma 103 mEq/L 98 - 107 [facility] Carbon dioxide, total [Moles/volume] in Serum or Plasma 30 MEQ/L 22 - 30 [facility] Glucose [Mass/volume] in Serum or Plasma 103 MG/DL 65 - 110 [facility] BUN 26 MG/DL 7 - 21 H [facility] Creatinine [Mass/volume] in Serum or Plasma 1.1 MG/DL 0.7 - 1.5 [facility] BUN/CREAT 24 8 - 27 [facility] Protein [Mass/volume] in Serum or Plasma 6.4 G/DL 6.3 - 8.2 [facility] Albumin [Mass/volume] in Serum or Plasma 4.5 G/DL 3.9 - 5.0 [facility] Globulin [Mass/volume] in Serum by calculation 1.9 GM/DL 2.4 - 3.2 L [facility] A/G RATIO 2.4 0.8 - 2.0 H [facility] Calcium [Mass/volume] in Serum or Plasma 9.5 MG/DL 8.4 - 10.2 [facility] Bilirubin.total [Mass/volume] in Serum or Plasma <0.7 MG/DL 0.2 - 1.3 [facility] Alkaline phosphatase [Enzymatic activity/volume] in Serum or Plasma 55 U/L 38 - 126 [facility] Aspartate aminotransferase [Enzymatic activity/volume] in Serum or Plasma 12 U/L 5 - 40 [facility] Alanine aminotransferase [Enzymatic activity/volume] in Seru m or Plasma 8 U/L 7 - 56 [facility] Anion gap 3 in Serum or Plasma 5.0 mmol/L 8.0 - 16.0 L [facility] AGE 84 yrs [facility] NON-AA GFR 50 mL/min [facility] AFR AMER GFR >[address] [facility] Male GFR In terprentation 20-49 yrs >60 mL/min Normal 50-59 yrs >56 mL/min Normal 60-69 yrs >49 mL/min Normal 70-79yrs >42 mL/min Normal 80 and above >35 mL/min Normal Female GFR Interpretation 20-39 yrs >60 mL/min Normal 40-49 yrs >58 mL/min Normal 50-59 yrs >51 mL/min Normal 60-69 yrs >45 mL/min Normal 70-79 yrs >39 mL/min Normal 80 and above >32 mL/min Normal ID Date Data Source [id number] 02/10/2020 11:10:00 AM EST [facility] Name Value Range Interpretation Code Description Data Berkley rce(s) Supporting Document(s) CBC W/AUTOMATED DIFF [facility] CORRECTE D REPORT COMPLETE BLOOD COUNT Leukocytes [#/volume] in Blood by Automated count 2.9 10^3/uL 4.2 - 1 1.0 L [facility] Erythrocytes [#/volume] in Blood by Automated count 3.25 10^6/uL 4. 20 - 5.40 L [facility] Hemoglobin [Mass/volume] in Blood 11.2 g/dL 12.0 - 16.0 L [facility] Hematocrit [Volume Fraction] of Blood by Automated count 33.4 % 3 7.0 - 47.0 L [facility] Erythrocyte mean corpuscular volume [Entitic volume] b y Automated count 102.8 fL 81.0 - 101 H [facility] Erythrocyte mean corpuscular hemoglobin [Entitic mass] by Automated count 34.5 pg 27.0 - 34.0 H [facility] Erythrocyte mean corpuscular hemoglobin concentration [Mass/volume] by Automated count 33.5 g/dL 31.0 - 36.0 [facility] Erythrocyte distribution width [Ratio] by Automated count 14.7 % 11.5 - 14.5 H [facility] Platelets [#/volume] in Blood by Automated count 346 10^3/uL 150 - 45 0 [facility] Platelet mean volume [Entitic volume] in Blood by Automated count 10.6 fL 7.4 - 10.4 H [facility] Neutrophils/100 leukocytes in Blood by Automated count 39.9 % 37. 0 - 80.0 [facility] Lymphocytes/100 leukocytes in Blood by Manual count 46.7 % 25.0 - 40.0 H [facility] Monocytes/100 leukocytes in Blood by Automated count 6.9 % 3.0 - 8.0 [facility] Eosinophils/100 leukocytes in Blood by Automated count 5.5 % 0.0 - 7.0 [facility] Basophils/100 leukocytes in Blood by Automated count 0.7 % 0.0 - 2.5 [facility] %IG 0.3 % 0.0 - 0.0 H [facility] %NRBC 0.0 % 0.0 - 0.0 [facility] Neutrophils [#/volume] in Blood by Automated count 1.15 10^3/uL 2.00 - 6.90 L [facility] Lymphocytes [#/volume] in Blood by Automated count 1.35 10^3/uL 0.60 - 3.40 [facility] Monocytes [#/volume] in Blood by Automated count 0.20 10^3/uL 0.00 - 0.90 [facility] Eosinophils [#/volume] in Blood by Automated count 0.16 10^3/uL 0.00 - 0.70 [facility] Basophils [#/volume] in Blood by Automated count 0.02 10^3/uL 0.00 - 0.20 [facility] #IG 0.01 10^3/uL 0.00 - 0.10 [facility] #NRBC 0.00 10^3/uL 0.00 - 0.00 [facility] MANUAL DIFF SEE BELOW [facility] ital Segmented neutrophils/100 leukocytes in Blood by Manual count 33 % 37 - 80 L [facility] %LYMPH 50 % 25 - 40 H [facility] %MONO 4 % 3 - 8 [facility] %EOS 6 % 0 - 7 [facility] Blasts/100 leukocytes in Blood by Manual count 0 % [facility] GIANCARLO LYM 7 % [facility] Nucleated erythrocytes/100 erythrocytes in Blood by Manual count 0 % [facility] RBC MORPH NOT INDICATED [facility] FOLLOWING RESULTS REPORTED IN ERROR MANUAL DIFF { CORRECT BLASTS NRBC { CORRECT Procedure Social History Code Duration Value Status Description Data Source(s ) Alcohol intake 12/22/2020 12:00:00 AM EDT Current drinker of al cohol (finding) completed Current drinker of alcohol (finding) [facility] Alcohol intake 12/16/2020 12:00:00 AM EDT Current drinker of al cohol (finding) completed Current drinker of alcohol (finding) [facility] Smoking 12/06/2020 12:00:00 AM EDT Never Smoker completed Never S moker eCW1 ([facility]) Alcohol intake 11/22/2020 12:00:00 AM EDT Current drinker of al cohol (finding) completed Current drinker of alcohol (finding) [facility] Alcohol intake 11/21/2020 12:00:00 AM EDT Current drinker of al cohol (finding) completed Current drinker of alcohol (finding) [facility] Tobacco use and exposure 10/26/2020 12:00:00 AM EDT Never used co mpleted Never used [facility] Smoking 10/26/2020 12:00:00 AM EDT Never smoker completed Never s moker [facility] Alcohol intake 10/26/2020 12:00:00 AM EDT Current drinker of al cohol (finding) completed Current drinker of alcohol (finding) [facility] Alcohol intake 07/13/2020 12:00:00 AM EDT Current drinker of al cohol (finding) completed Current drinker of alcohol (finding) [facility] Vital Signs ID Date Data Source UNK Name Value Range Interpretation Code Description Data Source(s) Body temperature 36.94 Halie 36.94 Halie [facility] Systolic blood pressure 139 mm[Hg] 139 mm[Hg] [facility] Diastolic blood pressure 90 mm[Hg] 90 mm[Hg] [facility] Heart rate 97 /min 97 /min [facility] Respiratory rate 16 /min 16 /min [facility] Oxygen saturation in Arterial blood by Pulse oximetry 96 % 96 % [facility] Body weight 60.555 kg 60.555 kg [facility] Body mass index (BMI) [Ratio] 22.22 kg/m2 22.22 kg/m2 [facility] Body height 165.1 cm 165.1 cm [facility] Systolic blood pressure 110 mm[Hg] 110 mm[Hg] [facility] Diastolic blood pressure 55 mm[Hg] 55 mm[Hg] [facility] Heart rate 100 /min 100 /min [facility] Body height 165.1 cm 165.1 cm [facility] Body weight 61.281 kg 61.281 kg [facility] Body mass index (BMI) [Ratio] 22.48 kg/m2 22.48 kg/m2 [facility] Oxygen saturation in Arterial blood by Pulse oximetry 96 % 96 % [facility] Body height 60 [in_i] 60 [in_i] [facility] ([facility], ) 5'0" Body weight 134.00 [lb_av] 134.00 [lb_av] MEDEN T ([facility], ) Body mass index (BMI) [Ratio] 26.2 kg/m2 26.2 k g/m2 [facility] ([facility], ) Grace body weight 100 [lb_av] 100 [lb_av] MEDEN T ([facility], ) Body weight 60.[address] [facility] ([facility], ) Body surface area Derived from formula 1.[address] [facility] ([facility], ) Systolic blood pressure 116 mm[Hg] 116 mm[Hg] M EDENT ([facility], ) Diastolic blood pressure 68 mm[Hg] 68 mm[Hg] [facility] ([facility], ) Body temperature 98.4 [degF] 98.4 [degF] [facility] ([facility], ) Systolic blood pressure 110 mm[Hg] 110 mm[Hg] [facility] Diastolic blood pressure 60 mm[Hg] 60 mm[Hg] [facility] Heart rate 92 /min 92 /min [facility] Body height 152.4 cm 152.4 cm [facility] Body weight 58.06 kg 58.06 kg [facility] Body mass index (BMI) [Ratio] 25.00 kg/m2 25.00 kg/m2 [facility] Oxygen saturation in Arterial blood by Pulse oximetry 96 % 96 % [facility] Systolic blood pressure 132 mm[Hg] 132 mm[Hg] [facility] Diastolic blood pressure 72 mm[Hg] 72 mm[Hg] [facility] Heart rate 87 /min 87 /min [facility] Respiratory rate 16 /min 16 /min [facility] Oxygen saturation in Arterial blood by Pulse oximetry 95 % 95 % [facility] Body temperature 36.61 Halie 36.61 Halie [facility] Body height 152.4 cm 152.4 cm [facility] Body weight 59.3 kg 59.3 kg [facility] Body mass index (BMI) [Ratio] 25.53 kg/m2 25.53 kg/m2 [facility] Systolic blood pressure 118 mm[Hg] 118 mm[Hg] [facility] Diastolic blood pressure 64 mm[Hg] 64 mm[Hg] [facility] Heart rate 99 /min 99 /min [facility] Body height 12.7 cm 12.7 cm [facility] Body weight 59.421 kg 59.421 kg [facility] Body mass index (BMI) [Ratio] 3684.12 kg/m2 368 4.12 kg/m2 [facility] Oxygen saturation in Arterial blood by Pulse oximetry 98 % 98 % [facility] Systolic blood pressure 120 mm[Hg] 120 mm[Hg] [facility] Diastolic blood pressure 70 mm[Hg] 70 mm[Hg] [facility] Heart rate 82 /min 82 /min [facility] Body height 152.4 cm 152.4 cm [facility] Body weight 63.05 kg 63.05 kg [facility] Body mass index (BMI) [Ratio] 27.15 kg/m2 27.15 kg/m2 [facility] Oxygen saturation in Arterial blood by Pulse oximetry 93 % 93 % [facility] Patient Treatment Plan of Care Planned Activity Planned Date Details Description Data Source (s) Bisacodyl 10 MG Rectal Suppository 12/24/2020 09:00:00 AM EDT [facility] POLYETHYLENE GLYCOL 3350 142 MG/ML Oral Solution 12/23/2020 07:00:0 0 AM EDT [facility] clopidogrel 75 MG Oral Tablet 12/23/2020 12:00:00 AM EDT [facility] Docusate Sodium 100 MG Oral Capsule 12/22/2020 09:00:00 AM EDT [facility] Amoxicillin 500 MG Oral Capsule 12/22/2020 12:00:00 AM EDT [facility] ondansetron (ZOFRAN) injection 4 mg 2020 06:20:43 PM EDT [facility] 2 ML Metoclopramide 5 MG/ML Prefilled Syringe 2020 06:20:43 P M EDT [facility] 10 ML Atropine Sulfate 0.1 MG/ML Prefilled Syringe 2020 06 :20:42 PM EDT [facility] Metronidazole 0.0075 MG/MG Topical Gel 2020 04:00:00 PM EDT [facility] lidocaine (ASPERCREME) 4 % 1 patch 2020 03:33:22 PM EDT [facility] Metronidazole 7.5 MG/ML Topical Cream 12/06/2020 12:00:00 AM EDT eCW1 ([facility]) Minocycline 100 MG Oral Capsule 12/06/2020 12:00:00 AM EDT eCW1 ([facility]) normal saline flush 0.9 % injection 3 mL 11/21/2020 03:00:00 PM EDT [facility] normal saline flush 0.9 % injection 3 mL 11/21/2020 02:00:00 PM EDT [facility] normal saline flush 0.9 % injection 3 mL 11/21/2020 02:00:00 PM EDT [facility] Furosemide 20 MG Oral Tablet 10/03/2020 12:00:00 AM EDT [facility] 24 HR metoprolol succinate 50 MG Extended Release Oral Tablet 10/05/2019 12:00:00 AM EDT [facility] Isosorbide Dinitrate 20 MG Oral Tablet 10/02/2019 12:00:00 AM EDT [facility] Cyclosporine 0.5 MG/ML Ophthalmic Suspension [Restasis ] 07/07/2019 12:00:00 AM EDT [facility] Hydrochlorothiazide 25 MG Oral Tablet [facility] clopidogrel 75 MG Oral Tablet [facility] CALCIUM PO [facility] Multiple Vitamins-Minerals (ZINC PO) [facility] VITAMIN D, CHOLECALCIFEROL, PO [facility] Ascorbic Acid (JB-C PO) [facility]
[2020-12-26] MEDS ORDERED: AMOX500C (17:55)
[2020-12-26] MEDS ORDERED: CLOP75TA2 (17:55)
--- OUTSIDE RECORDS SUMMARY | 2020-12-26 18:14 | CCD ---
Author Author [facility] Organization [facility] Address Unknown Phone Unavailable Care Team Providers Care Continuing Education Director Name Role Phone Mal, A Gracie RELATIONSHIP COUNSELOR Unavailable Unavailable Mal, A Gracie RELATIONSHIP COUNSELOR Unavailable Unavailable Mal, A Gracie RELATIONSHIP COUNSELOR Unavailable Unavailable Mal, A Gracie RELATIONSHIP COUNSELOR Unavailable Unavailable Mal, A Gracie RELATIONSHIP COUNSELOR Unavailable Unavailable Mal, A Gracie RELATIONSHIP COUNSELOR Unavailable Unavailable Mal, A Gracie RELATIONSHIP COUNSELOR Unavailable Unavailable Mal, A Gracie RELATIONSHIP COUNSELOR Unavailable Unavailable Mal, A Gracie RELATIONSHIP COUNSELOR Unavailable Unavailable Mal, A Gracie RELATIONSHIP COUNSELOR Unavailable Unavailable Mal, A Gracie RELATIONSHIP COUNSELOR Unavailable Unavailable Mal, A Gracie RELATIONSHIP COUNSELOR Unavailable Unavailable Mal, A Gracie RELATIONSHIP COUNSELOR Unavailable Unavailable Mal, A Gracie RELATIONSHIP COUNSELOR Unavailable Unavailable Mal, A Gracie RELATIONSHIP COUNSELOR Unavailable Unavailable Mal, A Gracie RELATIONSHIP COUNSELOR Unavailable Unavailable Mal, A Gracie RELATIONSHIP COUNSELOR Unavailable Unavailable Mal, A Gracie RELATIONSHIP COUNSELOR Unavailable Unavailable Mal, A Gracie RELATIONSHIP COUNSELOR Unavailable Unavailable Mal, A Gracie RELATIONSHIP COUNSELOR Unavailable Unavailable Mal, A Gracie RELATIONSHIP COUNSELOR Unavailable Unavailable Mal, A Gracie RELATIONSHIP COUNSELOR Unavailable Unavailable Mal, A Gracie RELATIONSHIP COUNSELOR Unavailable Unavailable Mal, A Gracie RELATIONSHIP COUNSELOR Unavailable Unavailable Mal, A Gracie RELATIONSHIP COUNSELOR Unavailable Unavailable Kocan, J Burt ANIMAL BIOLOGIST Unavailable Unavailable Kocan, J Burt ANIMAL BIOLOGIST Unavailable Unavailable Kocan, J Burt ANIMAL BIOLOGIST Unavailable Unavailable Kocan, J Burt ANIMAL BIOLOGIST Unavailable Unavailable Kocan, J Burt ANIMAL BIOLOGIST Unavailable Unavailable Kocan, J Burt ANIMAL BIOLOGIST Unavailable Unavailable Kocan, J Burt ANIMAL BIOLOGIST Unavailable Unavailable Kocan, J Burt ANIMAL BIOLOGIST Unavailable Unavailable Kocan, J Burt ANIMAL BIOLOGIST Unavailable Unavailable Kocan, J Burt ANIMAL BIOLOGIST Unavailable Unavailable Kocan, J Burt ANIMAL BIOLOGIST Unavailable Unavailable Kocan, J Burt ANIMAL BIOLOGIST Unavailable Unavailable Kocan, J Burt ANIMAL BIOLOGIST Unavailable Unavailable Nataliia PASTRANA MD Unavailable Unavailable [...] Unavailable Nataliia PASTRANA MD Unavailable Unavailable Nataliia PASTARNA MD Unavailable Unavailable Nataliia PASTRANA MD Unavailable [...] Unavailable Unavailable SKYLER, ANGELES MD Unavailable Unavailable SKLYER, ANGELES MD Unavailable Unavailable SKYLER, ANGELES MD [...] Unavailable Unavailable PIERO, MARLI MD Unavailable Unavailable PIREO, MARLI MD Unavailable Unavailable PIERO, MARLI MD [...] Unavailable Unavailable PIERO, MARLI MD Unavailable Unavailable PIEOR, MARLI MD Unavailable Unavailable Kocan, J Burt ANIMAL BIOLOGIST Unavailable Unavailable Kocan, J Burt ANIMAL BIOLOGIST Unavailable Unavailable Kocan, J Burt ANIMAL BIOLOGIST Unavailable Unavailable Kocan, J Burt ANIMAL BIOLOGIST Unavailable Unavailable Kocan, J Burt ANIMAL BIOLOGIST Unavailable Unavailable Kocan, J Burt ANIMAL BIOLOGIST Unavailable Unavailable Kocan, J Burt ANIMAL BIOLOGIST Unavailable Unavailable Kocan, J Burt ANIMAL BIOLOGIST Unavailable Unavailable Kocan, J Burt ANIMAL BIOLOGIST Unavailable Unavailable Kocan, J Burt ANIMAL BIOLOGIST Unavailable Unavailable Kocan, J Burt ANIMAL BIOLOGIST Unavailable Unavailable Kocan, J Burt ANIMAL BIOLOGIST Unavailable Unavailable Kocan, J Burt ANIMAL BIOLOGIST Unavailable Unavailable PIERO, MARLI MD Unavailable Unavailable [...] is protected by Article 27-F of the [facility] Public Health law. If you continue you may have access to information: Regarding HIV / AIDS; Provided by facilities licensed or operated by the [facility] Office of Mental Health; or Provided by the [facility] Office for People With Developmental Disabilities. If such information is present, then the following [facility] mandated warning applies: This information has been [...] law may result in a fine or shelter sentence or both. A general authorization for [...] SANDOVAL MD ES1-SJ.ANES 2020 10:30:20 AM EDT [facility] Inpatient Attender: Saad Villareal MDAdmitter: Saad moser MD [id number] 2020 10:27:00 AM EDT - 12/22/2020 02:19:00 PM EDT [facility] Patient discharged. Outpatient Attender: Saad Villareal MDReferrer: Saad moser MD MOB-MOB.PAT 12/16/2020 09:56:20 AM EDT - 12/16/2020 11:20:12 AM EDT [facility] Outpatient Referrer: Saad Villareal MD MOB-MOB.PAT 10/2020 09:33:58 AM EDT - 12/16/2020 09:34:04 AM EDT [facility] Unknown [address] [facility], [facility] [address] 12/15/2020 12:00:00 AM EDT eCW1 ([facility]) Outpatient Attender: MARLI RED MD 12/08/2020 01:15:0 0 PM EDT [facility] Outpatient Attender: MARLI RED MD ER-CTCMEDON 12/07/2020 0 1:12:00 PM EDT [facility] Outpatient Attender: MARLI RED MD Attender: CHITO BOWDEN MDConsultant: CHITO BOWDEN MD 12/06/2020 10:33:00 AM EDT - 12/06/2020 11:33:00 AM EDT [facility] Outpatient Attender: CARIN Holder/Hugo/Piero/ Og 12/01/2020 01:00:00 PM EDT [facility] ([facility]) Outpatient Referrer: Gracie STANFORD 12/01/2020 11:4 5:34 AM EDT [facility] Outpatient Referrer: Gracie STANFORD 11/30/2020 10:1 2:09 AM EDT [facility] Outpatient Attender: Burt ANDRADEP.SEDA-SJP.SEDA 2020 12:00:00 AM EDT - 11/23/2020 02:28:32 PM EDT [facility] Outpatient Attender: Saad Villareal MDA dmitter: Saad Villareal MDReferrer: Gracie STANFORD ES1-SJ.CVAU 11/21/2020 11:22:00 AM EDT - 11/21/2020 06:10:00 PM EDT [facility] Patient discharged. Outpatient Attender: Burt RAVIConsultant: CHITO BOWDEN MD 10/27/2020 08:11:00 AM EDT - 10/27/2020 09:11:00 AM EDT [facility] Outpatient Attender: Burt ANDRADEP.SEDA-SJP.SEDA 2020 11:19:51 AM EDT - 10/26/2020 12:54:40 PM EDT [facility] Outpatient Attender: MARLI RED MD 10/12/2020 12:17:0 0 PM T [facility] Outpatient Attender: MARLI RED MD 10/11/2020 01:34:0 0 PM EDT [facility] Outpatient Attender: MARLI RED MD ER-CTCMEDONC 10/10/2020 0 9:42:00 AM EDT [facility] Outpatient Attender: MARLI RED MD ER-CTCMEDONC 10/05/2020 0 9:06:00 AM [facility] Outpatient Attender: Burt Dominique RNPReferrer: Burt Beard NP SJP.SEDA-SJP.SEDA 09/21/2020 12:50:22 PM EDT - 09/21/2020 01:41:47 PM EDT [facility] Outpatient Attender: MARLI RED MD ER-CTCMEDON 07/27/2020 0 1:44:00 PM EDT [facility] Outpatient Attender: MARLI RED MDConsultant: CHITO VELAZQUEZ MD 07/19/2020 09:18:00 AM EDT - 07/19/2020 10:18:00 AM EDT [facility] Outpatient Attender: Burt Dominique RNPAttender: MICHAEL HOLLAND MD SJP.SEDA-SJP.SEDA 07/13/2020 10:41:32 AM EDT - 07/13/2020 12:21:34 PM EDT [facility] ([facility] PDT [address] [facility] [address] 06/16/2020 12:00:00 AM EDT [facility] ([facility]) Outpatient Attender: MARLI RED MD 04/28/2020 02:35:0 0 PM [facility] Outpatient Attender: MARLI RED MDConsultant: CHITO VELAZQUEZ MD 04/05/2020 08:34:00 AM [facility] - 04/05/2020 09:34:00 AM [facility] Outpatient Attender: MARLI RED MD -CTCMEDON 03/31/2020 0 8:43:00 AM [facility] Outpatient Attender: MARLI RED MDConsultant: CHITO VELAZQUEZ MD 03/24/2020 10:17:00 AM [facility] - 03/24/2020 11:17:00 AM [facility] Outpatient Attender: MARLI RED MD 03/23/2020 09:07:0 0 AM [facility] Admission cancelled. Disregard status an d admitted date. Outpatient Attender: MARLI RED MD ER-WADDCTC 02/19/2020 08:26:0 0 AM [facility] Outpatient Attender: MARLI RED MDConsultant: CHITO VELAZQUEZ MD 02/15/2020 10:32:00 AM EST - 02/15/2020 11:32:00 AM [facility] Outpatient Attender: MARLI RED MDConsultant: CHITO VELAZQUEZ MD 02/11/2020 09:50:00 AM [facility] - 02/11/2020 10:50:00 AM [facility] Outpatient Attender: MARLI RED MD 02/10/2020 11:34:0 0 AM [facility] Outpatient Attender: MARLI RED MDConsultant: CHITO VELAZQUEZ MD 02/10/2020 10:06:00 AM [facility] - 02/10/2020 11:06:00 AM [facility] Preadmit Attender: MARLI RED MD 01/18/2020 11:36:0 0 AM [facility] Preadmit Attender: MARLI RED MD 01/13/2020 10:53:0 0 AM [facility] Outpatient Attender: MARLI RED MD [facility] 10/13/2019 0 1:08:00 PM [facility] Outpatient Attender: MARLI RED MD [facility] 07/20/2019 0 7:48:00 AM [facility] Outpatient Attender: MARLI RED MD [facility] 01/16/2019 1 0:57:00 AM [facility] Preadmit Attender: MARLI RED MD 01/01/2019 02:19:0 0 PM [facility] Outpatient Attender: MARLI RED MD [facility] 06/16/2018 1 0:14:00 AM [facility] Immunizations Vaccine Date Status Description Data Source(s) COVID-19 VACCINE Moderna 05/09/2020 12:00:00 AM EST completed [employer] Vaccine Series Complete: YESThis Data wa s Submitted to [facility] Via [employer]. COVID-19 VACCINE, MRNA-1273, LNP-S (MODERNA)/PF [...] 1 per rectum prn starting POD #3.
[facility] Medication administered onsite POLYETHYLENE GLYCOL 3350 142 MG/ML Oral Solution polyethylene glycol (GLYCOLAX) packet 17 g polyethylene glycol (GLYCOLAX) packet 17 g 12/23/2020 07:00:00 AM EDT 17 g Oral active 17 g, Or al, Daily PRN, For constipation, Starting on 12/23/20 at 0700, PACU & Post-op
hold for loose stools
[facility] Medication administered onsite 75 mg 12/23/2020 12:00:00 AM EDT tablet 30 TAKE ONE TABLET BY MOUTH EVERY DAY TAKE ONE TABLET BY MOUTH EVERY DAY SOLD: 12/23/2020 [facility] clopidogrel 75 MG Oral Tablet clopidogrel (PLAVIX) 75 MG tablet clopidogrel (PLAVIX) 75 MG tablet 12/23/2020 12:00:00 AM EDT 75 mg Oral active Take 1 tablet (75 mg total) by mouth daily [facility] Docusate Sodium 100 MG Oral Capsule docusate sodium (C OLACE) capsule 100 mg docusate sodium (COLACE) capsule 100 mg 12/22/2020 09:00:00 AM EDT 100 mg Oral active 100 mg, Oral, 2 times daily, First dose on Aniyah 12/22/20 at 0900, Post-op
Start first POD.
[facility] Medication administered onsite clopidogrel 75 MG Oral Tablet clopidogrel (PLAVIX) tab let 75 mg clopidogrel (PLAVIX) tablet 75 mg 12/22/2020 09:00:00 AM EDT 75 mg Oral active 75 mg, Oral, Daily, First dose on Aniyah 12/22/20 at 0900, Post-op
Start first POD.
[facility] Medication administered onsite Amoxicillin 500 MG Oral Capsule amoxicillin (AMOXIL) 5 00 MG capsule amoxicillin (AMOXIL) 500 MG capsule 12/22/2020 12:00:00 AM EDT 2000 mg Oral active Take 4 capsules (2,000 mg total) by mout h once as needed ue prior to dental procedures [facility] normal saline flush 0.9 % injection 3 mL [id number] 2020 09:00:00 PM EDT 3 mL Intravenous active 3 mL , Intravenous, PROTOCOL, First dose on Sat12/21/20 at 2100, Post-op
flush per protocol, D/C Main IV fluid if appropriate
[facility] Medication administered onsite Cefazolin 1000 MG Injection [...] minutes. Use within 1 hour of reconstitution
[facility] Perioperative Pharmacoprophylaxis Medication administered onsite acetaminophen (TYLENOL) [...] Sat12/21/20 at 1820, Post-op [Order 2 End] [facility] Medication administered onsite 2 ML Metoclopramide 5 MG/ML Prefilled Sy ringe metoclopramide (REGLAN) injection 5 mg metoclopramide (REGLAN) injection 5 mg 2020 06:20:43 PM EDT 5 mg Intravenous active 5 mg, Intrave nous, Every 6 hours PRN, nausea, vomiting, Starting on Sat12/21/20 at 1820, Post-op
Give once if no response to Zofran after 15-30 minutes, then q6h prn N/V.
[facility] Medication administered onsite ondansetron (ZOFRAN) injection 4 mg [id number] 2020 06:20:4 3 PM EDT 4 mg Intravenous active 4 mg, In travenous, Every 6 hours PRN, nausea, vomiting, Starting on Sat12/21/20 at 1820, Post-op
If no response in 15-30 minutes then give metoclopramide 10 mg IV x 1 then q6h prn N/V.
[facility] Medication administered onsite 10 ML Atropine Sulfate [...] total of 3 mg or 0.04 mg/kg.
[facility] Medication administered onsite sodium chloride 0.9% (NS) infusion 8840-1041-73 2020 05:00:00 P M EDT Intravenous completed at 50 mL/hr, Intravenous, Continuous, Starting on Sat12/21/20 at 1700, For 4 hours, Post-op [facility] Medication administered onsite clopidogrel 300 MG Oral Tablet clopidogrel (PLAVIX) ta blet 300 mg clopidogrel (PLAVIX) tablet 300 mg 2020 04:00:00 PM EDT 300 mg Oral completed 300 mg, Oral, Once, On Sat12/21/20 at 1600, For 1 dos e [facility] Medication administered onsite Metronidazole 0.0075 MG/MG Topical Gel m etroNIDAZOLE (METROGEL) 0.75 % gel 1 application metroNIDAZOLE (METROGEL) 0.75 % gel 1 application 12/09 04:00:00 PM EDT 1 {application} Topical active 1 application, Topical, 2 times daily, First dose on Sat12/21/20 at 1600, Until Discontinued [facility] Medication administered onsite anagrelide 0.5 MG Oral Capsule anagrelide (AGRYLIN) ca psule 0.5 mg anagrelide (AGRYLIN) capsule 0.5 mg 2020 04:00:00 PM EDT 0.5 mg Oral active 0.5 mg, Oral, 3 times daily, First dose on Sat 1 at 1600 [facility] Medication administered onsite ferrous gluconate 324 MG Oral Tablet ferrous gluconate (FERGON) tablet 324 mg ferrous gluconate (FERGON) tablet 324 mg 2020 04:00:00 PM EDT 324 mg Oral active 324 mg, Oral, 2 times daily, First dose on Sat12/21/20 at 1600
separate as far as possible from antacids, take with food
[facility] Medication administered onsite lidocaine (ASPERCREME) 4 % 1 patch [address]-6 2020 03:33:22 PM EDT 1 {patch} Transdermal active 1 patch, Transdermal, Administer over 12 Hours, Daily PRN, to back/hips, Starting on Sat12/21/20 at 1533 [facility] Medication administered onsite sodium chloride 0.9% (NS) infusion [id number] 2020 12:00:00 P M EDT Intravenous aborted at 75 mL/hr, Intravenous, Continuous, Starting on Sat12/21/20 at 1200, Pre-op [facility] Medication administered onsite cefazolin (ANCEF) injection 2 g drug or medication 2020 12:00 :00 PM EDT 2 g Intravenous completed 2 g, Int ravenous, Administer over 6 Minutes, industrial automation engineer, On Sat12/21/20 at 1200, For 1 dose, Pre-op
Send to OR. RN may administer IV push or infuse this medication through syringe adapter set ref [id number]. Flush line after use
[facility] Medication administered onsite Minocycline 100 MG Oral Capsule Minocycline HCl 100 MG Minoc ycline HCl 100 MG 12/06/2020 12:00:00 AM EDT 1.0 {capsule} active Minocycline HCl 100 MG eCW1 ([facility]) Metronidazole 7.5 MG/ML Topical Cream metroNIDAZOLE 0.75 % m etroNIDAZOLE 0.75 % 12/06/2020 12:00:00 AM EDT 1.0 {application} act jim metroNIDAZOLE 0.75 % eCW1 ([facility]) normal saline flush 0.9 % injection 3 mL [id number] 11/21/2020 03:00:00 PM EDT 3 mL Intravenous active 3 mL , Intravenous, PROTOCOL, First dose on Sat11/21/20 at 1500, Pre-op
flush per protocol, D/C Main IV fluid if appropriate
[facility] Medication administered onsite iopamidol (ISOVUE-370) 76 % [id number] 11/21/2020 02:56:18 PM EDT active As needed, Starting on Sat11/21/20 at 1456, Intra-Proc edure [facility] Medication administered onsite 1 ML heparin sodium, porcine 1000 UNT/ML Injection hep melina (porcine) injection heparin (porcine) injection 11/21/2020 02:45:10 PM EDT active As needed, Starting on Sat11/21/20 at 1445, Intra-Procedure [facility] Medication administered onsite 4 ML Verapamil hydrochloride 2.5 MG/ML Injection verap gaviota (ISOPTIN) injection verapamil (ISOPTIN) injection 11/21/2020 02:44:49 PM EDT active As needed, Starting on Sat11/21/20 at 1444, Intra-Procedure [facility] Medication administered onsite lidocaine 1 % injection [id number] 11/21/2020 02:30:50 PM EDT active As needed, Starting on Sat at 1430, Intra-Procedure [facility] Medication administered onsite normal saline flush 0.9 % injection 3 mL [id number] 11/21/2020 02:00:00 PM EDT 3 mL Intravenous active 3 mL , Intravenous, Every 8 hours (scheduled), First dose on Sat11/21/20 at 1400, Pre-op
Rapid push positive pressure flushing shall be performed with a 10 cc normal saline syringe to check the PATENCY of a PIV site prior to any infusion therapy initiation unless resistance is met.
[facility] Medication administered onsite normal saline flush 0.9 % injection 3 mL [id number] 11/21/2020 02:00:00 PM EDT 3 mL Intravenous active 3 mL , Intravenous, Every 8 hours (scheduled), First dose on Sat11/21/20 at 1400, Pre-op
Rapid push positive pressure flushing shall be performed with a 10 cc normal saline syringe to check the PATENCY of a PIV site prior to any infusion therapy initiation unless resistance is met.
[facility] Medication administered onsite Diphenhydramine Hydrochloride 50 MG Oral Capsule diphenhydrAMINE (BENADRYL) capsule 50 mg diphenhydrAMINE (BENADRYL) capsule 50 mg 11/21/2020 01 :00:00 PM EDT 50 mg Oral completed 50 mg, Oral, industrial automation engineer, On Sat11/21/20 at 1300, For 1 dose, Pre-op [facility] Medication administered onsite sodium chloride 0.9% (NS) infusion [id number] 11/21/2020 01:00:00 PM EDT 100 mL/h Intravenous active at 100 m L/hr, 100 mL/hr, Intravenous, Continuous, Starting on Sat11/21/20 at 1300, Pre-op
Start two hours prior to scheduled start time
[facility] Medication administered onsite Aspirin 325 MG Oral [...] home. Max of 1 dose per day.
[facility] Medication administered onsite Furosemide 20 MG Oral Tablet furosemide (LASIX) 20 MG tablet furosemide (LASIX) 20 MG tablet 10/03/2020 12:00:00 AM EDT 20 mg Oral activ e Take 20 mg by mouth daily [facility] 24 HR metoprolol succinate 50 MG Extende d Release Oral Tablet metoprolol succinate (TOPROL-XL) 50 MG 24 hr tablet metoprolol succinate (TOPROL-XL) 50 MG 24 hr tablet 10/05/2019 12:00:00 AM EDT 1 {tbl} Oral abor constantino Take 1 tablet by mouth 2 (two) times a day [facility] Isosorbide Dinitrate 20 MG Oral Tablet i sosorbide dinitrate (ISORDIL) 20 MG tablet isosorbide dinitrate (ISORDIL) 20 MG tablet 10/02/2019 12:00:00 AM EDT 20 mg Oral aborted Take 20 mg by mouth 2 (t wo) times a day [facility] Cyclosporine 0.5 MG/ML Ophthalmic Suspen monique [Restasis] RESTASIS 0.05 % ophthalmic emulsion RESTASIS 0.05 % ophthalmic emulsion 07/07/2019 12:00:0 0 AM EDT aborted [facility] Ascorbic Acid (JB-C PO) drug or medication Oral aborted Take by mouth daily [facility] clopidogrel 75 MG Oral Tablet clopidogrel (PLAVIX) 75 MG tablet clopidogrel (PLAVIX) 75 MG tablet 75 mg Oral aborted Take 75 mg by mouth daily Patient states she took 2 pills last night [facility] Hydrochlorothiazide 25 MG Oral Tablet hy drochlorothiazide (HYDRODIURIL) 25 MG tablet hydrochlorothiazide (HYDRODIURIL) 25 MG tablet 25 mg O ral aborted Take 25 mg by mouth daily Take 1/2 tablet by mouth daily, or 1 tablet every other day [facility] VITAMIN D, CHOLECALCIFEROL, PO drug or medication Oral aborted Take by mouth daily [facility] CALCIUM PO drug or medication Oral aborted Take by mouth daily [facility] Multiple Vitamins-Minerals (ZINC PO) drug or medication Oral aborted Take by mouth daily [facility] Insurance Providers Payer name Policy type / Coverage type Policy ID Covered constitution party ID Covered constitution party's relationship to oquendo Policy Oquendo Plan Information Medicare Part B [facility] [id number] 0 [id number] MEDICARE [id number] Shayy [id number] U17 MEDICARE [id number] MEDICARE [id number] SP [id number] A MEDICARE A [id number] Self [id number] MEDICARE [id number] SP [id number] [id number] [employer] [id number] UMR U [id number] Self [id number] UMR U [id number] Self [id number] UMR [id number] UMR [id number] Shayy [id number] INSURANCE COVID-19 COVID Shayy C OVID INSURANCE COVID-19 COVI Shayy C NARINDER INSURANCE COVID-19 [id number] COVI 2 [id number] [employer] MEDICAL CLAIMS [id number] SP [id number] [facility] PART B C [id number] S [id number] [facility] [id number] S [id number] A MEDICARE [id number] S [id number] A Umr/Uhc/[employer] Medigap Part B [id number] Self [id number] Medicare Natl Gov't Servi Medicare Primary [id number] Self [id number] [employer] -O/P [id number] 18 [id number] UMR O [id number] S [id number] MEDICARE C [id number] S [id number] A UMR O [id number] S [id number] [employer] PPO O [id number] S [id number] [employer] [id number] 0 [id number] IBEW LOCAL [id number] S [id number] MCRB [id number] S [id number] MEDICARE -O/P [id number] 18 [id number] [employer] [id number] Self Medicare [place] [id number] Self RMS[employer] O [id number] S [id number] MEDICARE PART B-O/P UNAVAILABLE UNAVAILABLE UMR API HEALTHCARE [id number] SP [id number] UMR -O/P [id number] 18 [id number] MEDICARE PART A -O/P [id number] 18 [id number] UMR [id number] S [id number] MEDICARE [id number] S [id number] [id number] MCRB [id number] S [id number] [id number] UMR [id number] S [id number] MEDICARE PART A -O/P [id number] 18 [id number] IBEW LOCAL 1249 INSURANCE FUND -O/P [id number] 18 [id number] [employer] [id number] S [id number] [employer] [id number] S [id number] R [facility] [id number] SP [id number] UMR O [id number] S [id number] MEDICARE C [id number] S [id number] Problems, Conditions, and Diagnoses Code Display Name Description Problem Type Effective Dates Data Source(s) I35.0 Nonrheumatic aortic (valve) stenosis Nonrheumati c aortic (valve) stenosis Diagnosis 12/16/2020 09:56:20 AM EDT [facility] U07.1 COVID-19 COVID-19 Diagnosis 12/16/2020 09:33:58 AM ED T [facility] D64.9 Anemia, unspecified ANEMIA, UNSPECIFIED Diagnosis 0 12/07/2020 01:12:00 PM EDT [facility] D649 Anemia, unspecified Anemia, unspecified Diagnosis 0 12/06/2020 10:33:00 AM EDT [facility] R791 Abnormal coagulation profile Abnormal coagulation prof ile Diagnosis 12/06/2020 10:33:00 AM EDT [facility] [id number] Lymphocytosis (symptomatic) Lymphocytosis (symptomatic ) Diagnosis 12/06/2020 10:33:00 AM EDT [facility] [id number] Decreased white blood cell count, unspec ified Decreased white blood cell count, unspecified Diagnosis 12/06/2020 10:33:00 AM EDT [facility] M19.90 Unspecified osteoarthritis, unspecified site Unspecified osteoarthritis, unspecified Diagnosis 11/23/2020 01:26:51 PM EDT [facility] K21.9 Gastro-esophageal reflux disease without esophagitis Gastro-esophageal reflux disease without Diagnosis 11/23/2020 01:26:51 PM EDT [facility] 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 Chronic embolism and thrombosis of right Diagnosis 11/23/2020 01:26:51 PM EDT [facility] D69.6 Thrombocytopenia, unspecified Thrombocytopenia, unspec ified Diagnosis 11/21/2020 11:22:00 AM EDT [facility] I82.431 Acute embolism and thrombosis of right p opliteal vein Acute embolism and thrombosis of right p Diagnosis 11/21/2020 11:22:00 AM EDT [facility] I10 Essential (primary) hypertension Essential (primary) h ypertension Diagnosis 11/21/2020 11:22:00 AM EDT [facility] R06.02 Shortness of breath Shortness of breath Diagnosis 0 11/21/2020 11:22:00 AM EDT [facility] E78.5 Hyperlipidemia, unspecified Hyperlipidemia, unspecifie d Diagnosis 11/21/2020 11:22:00 AM EDT [facility] E785 Hyperlipidemia, unspecified Hyperlipidemia, unspecifie d Diagnosis 10/27/2020 08:11:00 AM EDT [facility] I10 Essential (primary) hypertension Essential (primary) h ypertension Diagnosis [facility] of breath Shortness of breath Diagnosis 0 [facility] I350 Nonrheumatic aortic (valve) stenosis Nonrheumati c aortic (valve) stenosis Diagnosis [facility]2020 [facility] 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), and cerebral infarction without residual deficits PRSNL HX OF TIA (TIA), AND CEREB INFRC W /O RESID D Diagnosis 10/12/2020 12:17:00 PM EDT [facility] sylvia D72.819 Decreased white blood cell count, unspec ified DECREASED WHITE BLOOD CELL COUNT, UNSPECIFIED Diagnosis 10/12/2020 12:17:00 PM EDT [facility] sylvia I10 Essential (primary) hypertension ESSENTIAL (PRIMARY) H YPERTENSION Diagnosis 10/12/2020 12:17:00 PM [facility] D47.3 Essential (hemorrhagic) thrombocythemia ESSENTIAL (HEMORRHAGIC) THROMBOCYTHEMIA Diagnosis 10/12/2020 12:17:00 PM T [facility] sylvia R06.00 Dyspnea, unspecified DYSPNEA, UNSPECIFIED Diagnosis 10/12/2020 12:17:00 PM [facility] R79.1 Abnormal coagulation profile ABNORMAL COAGULATION PROF ILE Diagnosis 10/10/2020 09:42:00 AM [facility] K08.89 OTHER SPECIFIED DISORDERS OF TEETH AND S UPPORTING OTHER SPECIFIED DISORDERS OF TEETH AND SUPPORTING Diagnosis 07/27/2020 01:44:00 PM [facility] D70.9 Neutropenia, unspecified NEUTROPENIA, UNSPECIFIED Diag nosis 03/31/2020 08:43:00 AM [facility] 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 Essential (hemorrhagic) thrombocythemia Diagnosis 03/24/2020 10:17:00 AM [facility] 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 RESIDENTIAL (CU RRENT) USE OF ASPIRIN Diagnosis 02/10/2020 11:34:00 AM [facility] R06.89 Other abnormalities of breathing OTHER ABNORMALI TIES OF BREATHING Diagnosis 02/10/2020 11:34:00 AM [facility] R23.8 Other skin changes OTHER SKIN CHANGES Diagnosis 04/2019 11:34:00 AM [facility] D75.839 Thrombocytosis Thrombocytosis [id number] 2020 12:00: 00 AM EDT [facility] Z95.2 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 (transcatheter aortic valve replacement) [id number] 2020 12:00:00 AM EDT [facility] I35.0 Nonrheumatic aortic (valve) stenosis Nonrheumati c aortic (valve) stenosis [id number] 2020 12:00:00 AM EDT [facility] L71.0 [id number] Perioral dermatitis Problem 12/06/2020 12:00 :00 AM EDT eCW1 ([facility]) [id number] Essential hypertension Essential hypertension Problem 12/01/2020 12:00:00 AM EDT [facility] ([facility], ) E78.5 Hyperlipidemia Hyperlipidemia [id number] 11/08/2020 12:00: 00 AM EDT [facility] D69.6 Thrombocytopenia Thrombocytopenia [id number] 07/13/2020 12 :00:00 AM EDT [facility] R06.02 Shortness of breath on exertion Shortness of breath on exertion [id number] 07/13/2020 12:00:00 AM EDT [facility] Surgeries/Procedures Procedure Description Date Indications Data Source(s) ECHO TTHRC R-T 2D W/WOM-MODE COMPL SPEC&COLR DOP <td>E CHOCARDIOGRAM TRANSTHORACIC</td><td>Pending Discharge</td><td>12/22/2020 9:02 AM EDT</td><td></td><td> </td> 12/22/2020 09:02:36 AM EDT [facility] XR CHEST PORTABLE <td>XR CHEST PORTABLE</td><t d>Routine</td><td>12/22/2020 7:57 AM EDT</td><td></td><td> </td> 12/22/2020 07:57:00 AM EDT [facility] BLOOD COUNT COMPLETE AUTOMATED <td>CBC</td><td>Timed</ td><td>12/22/2020 4:29 AM EDT</td><td></td><td> </td> 12/22/2020 04:29:00 AM EDT [facility] BASIC METABOLIC PANEL CALCIUM TOTAL <td>BASIC METABOLI C PANEL</td><td>Timed</td><td>12/22/2020 4:29 AM EDT</td><td></td><td> </td> 12/22/2020 04:29:00 AM EDT [facility] PROTHROMBIN TIME <td>PROTIME-INR</td><td>STAT </td><td>2020 4:26 PM EDT</td><td></td><td> </td> 2020 04:26:00 PM EDT [facility] BLOOD COUNT COMPLETE AUTOMATED <td>CBC</td><td>STAT</t d><td>2020 4:26 PM EDT</td><td></td><td> </td> 2020 04:26:00 PM EDT [facility] MAGNESIUM <td>MAGNESIUM</td><td>STAT</ td><td>2020 4:26 PM EDT</td><td></td><td> </td> 2020 04:26:00 PM EDT [facility] BASIC METABOLIC PANEL CALCIUM TOTAL <td>BASIC METABOLI C PANEL</td><td>STAT</td><td>2020 4:26 PM EDT</td><td></td><td> </td> 2020 04:26:00 PM EDT [facility] XR CHEST PORTABLE <td>XR CHEST PORTABLE</td><t d>STAT</td><td>2020 4:13 PM EDT</td><td></td><td> </td> 2020 04:13:18 PM EDT [facility] ECG ROUTINE ECG W/LEAST 12 LDS TRCG ONLY W/O I&R <td>E CG 12- LEAD</td><td>Routine</td><td>2020 3:49 PM EDT</td><td></td><td></td> 2020 03:49:16 PM EDT [facility] TRANSCATHETER AORTIC VALVE IMPLANT FEMORAL <td>TRANSCA THETER AORTIC VALVE IMPLANT FEMORAL</td><td>Routine</td><td>2020 3:28 PM EDT</td><td> Nonrheumatic aortic (valve) stenosis</td><td></td> 2020 03:28:00 PM EDT Nonrheumatic aortic (valve) stenosis [facility] Nonrheumatic aortic (valve) stenosis POC ARTERIAL BLOOD GAS W LYTES <td>POC ARTERIAL BLOOD GAS W LYTES</td><td>Routine</td><td>2020 3:20 PM EDT</td><td></td><td> </td> 2020 03:20:00 PM EDT [facility] POC ACT <td>POC ACT</td><td>Routine< /td><td>2020 3:19 PM EDT</td><td></td><td> </td> 2020 03:19:00 PM EDT [facility] POC ACT <td>POC ACT</td><td>Routine< /td><td>2020 2:43 PM EDT</td><td></td><td> </td> 2020 02:43:00 PM EDT [facility] POC ARTERIAL BLOOD GAS W LYTES <td>POC ARTERIAL BLOOD GAS W LYTES</td><td>Routine</td><td>2020 2:43 PM EDT</td><td></td><td> </td> 2020 02:43:00 PM EDT [facility] GLUC BLD GLUC MNTR DEV CLEARED FDA SPEC HOME USE <td>P OCT GLUCOSE</td><td>Routine</td><td>2020 11:10 AM EDT</td><td></td><td> </td> 2020 11:10:00 AM EDT [facility] ROOM TEMP AB SCREEN <td>ROOM TEMP AB SCREEN</td> <td>STAT</td><td>2020 11:05 AM EDT</td><td></td><td> </td> 2020 11:05:00 AM EDT [facility] BLOOD TYPING ABO <td>TYPE AND SCREEN</td><td> STAT</td><td>2020 10:49 AM EDT</td><td></td><td> </td> 2020 10:49:00 AM EDT [facility] ECG TRANSESOPHAG R-T 2D W/PRB IMG ACQUISJ I&R <td>ECHO CARDIOGRAM TRANSESOPHAGEAL</td><td>Routine</td><td>2020 10:30 AM EDT</td><td></td><td> </td> 2020 10:30:20 AM EDT [facility] ECG ROUTINE ECG W/LEAST 12 LDS TRCG ONLY W/O I&R <td>E CG 12- LEAD</td><td>Routine</td><td>12/16/2020 11:19 AM EDT</td><td> Nonrheumatic aortic (valve) stenosis</td><td></td> 12/16/2020 11:19:12 AM EDT Nonrheumatic aortic (valve) stenosis [facility] Nonrheumatic aortic (valve) stenosis URNLS DIP STICK/TABLET RGNT AUTO W/O MICROSCOPY <td>UR INALYSIS W/O MICRO</td><td>Routine</td><td>12/16/2020 11:15 AM EDT</td><td> Nonrheumatic aortic (valve) stenosis</td><td> </td> 12/16/2020 11:15:00 AM EDT Nonrheumatic aortic (valve) stenosis [facility] Nonrheumatic aortic (valve) stenosis NT PRO BNP <td>NT PRO BNP</td><td>Routi ne</td><td>12/16/2020 10:45 AM EDT</td><td> Nonrheumatic aortic (valve) stenosis</td><td> </td> 12/16/2020 10:45:00 AM EDT Nonrheumatic aortic (valve) stenosis [facility] Nonrheumatic aortic (valve) stenosis THROMBOPLASTIN TIME PARTIAL PLASMA/WHOLE BLOOD <td>APTT</td><td>Routine</td><td>12/16/2020 10:45 AM EDT</td><td> Nonrheumatic aortic (valve) stenosis</td><td> </td> 12/16/2020 10:45:00 AM EDT Nonrheumatic aortic (valve) stenosis [facility] Nonrheumatic aortic (valve) stenosis PROTHROMBIN TIME <td>PROTIME-INR</td><td>Rout ine</td><td>12/16/2020 10:45 AM EDT</td><td> Nonrheumatic aortic (valve) stenosis</td><td> </td> 12/16/2020 10:45:00 AM EDT Nonrheumatic aortic (valve) stenosis [facility] Nonrheumatic aortic (valve) stenosis BLOOD COUNT COMPLETE AUTO&AUTO DIFRNTL WBC COUNT <td>C BC AND DIFFERENTIAL</td><td>Routine</td><td>12/16/2020 10:45 AM EDT</td><td> Nonrheumatic aortic (valve) stenosis</td><td> </td> 12/16/2020 10:45:00 AM EDT Nonrheumatic aortic (valve) stenosis [facility] Nonrheumatic aortic (valve) stenosis HEMOGLOBIN GLYCOSYLATED A1C <td>HEMOGLOBIN A1C</td><td>Routine</td><td>12/16/2020 10:45 AM EDT</td><td> Nonrheumatic aortic (valve) stenosis</td><td> </td> 12/16/2020 10:45:00 AM EDT Nonrheumatic aortic (valve) stenosis [facility] Nonrheumatic aortic (valve) stenosis COMPREHENSIVE METABOLIC PANEL <td>COMPREHENSIVE METABO LIC PANEL</td><td>Routine</td><td>12/16/2020 10:45 AM EDT</td><td> Nonrheumatic aortic (valve) stenosis</td><td> </td> 12/16/2020 10:45:00 AM EDT Nonrheumatic aortic (valve) stenosis [facility] Nonrheumatic aortic (valve) stenosis OFFICE OUTPATIENT NEW 45 MINUTES 12/01/2020 12:00:00 A M EDT [facility] ([facility], ) DUPLEX SCAN EXTRACRANIAL ART COMPL BI STUDY <td>US CAR OTID BILATERAL</td><td>Pending Discharge</td><td>11/21/2020 4:24 PM EDT</td><td></td><td> </td> 11/21/2020 04:24:20 PM EDT [facility] RADEX SPINE ENTIRE SURVEY STD ANTEROPOST&LAT <td>CARDI [...] of breath on exertionNonrheumatic aortic valve stenosis [facility] Thrombocytopenia Acute deep vein thrombosis (DVT) of popl iteal vein of right lower extremity Hyperlipidemia, unspecified hyperlipidem ia type Essential hypertension Shortness of breath on exertion Nonrheumatic aortic valve stenosis ECG ROUTINE ECG W/LEAST 12 LDS TRCG ONLY W/O I&R <td>E CG 12- LEAD</td><td>Routine</td><td>11/21/2020 11:52 AM EDT</td><td></td><td></td> 11/21/2020 11:52:03 AM EDT [facility] ECG ROUTINE ECG W/LEAST 12 LDS W/I&R <td>POCT AMB EKG</td><td>Routine</td><td>07/13/2020 5:45 PM EDT</td><td> Nonrheumatic aortic valve stenosis Essential hypertension</td><td> </td> 07/13/2020 05:45:00 PM EDT Essential hypertensionNonrheumatic aortic valve stenos is [facility] Essential hypertension Nonrheumatic aortic valve stenosis BLOOD COUNT COMPLETE AUTO&AUTO DIFRNTL WBC COUNT <td>C BC AND DIFFERENTIAL</td><td>Routine</td><td>03/24/2020</td><td></td><td> </td> 03/24/2020 12:00:00 AM EST [facility] HEPATIC FUNCTION PANEL <td>HEPATIC FUNCTION PANEL</td><td>Routine</td><td>03/24/2020</td><td></td><td> </td> 03/24/2020 12:00:00 AM EST [facility] BASIC METABOLIC PANEL CALCIUM TOTAL <td>BASIC METABOLI C PANEL</td><td>Routine</td><td>03/24/2020</td><td></td><td> </td> 03/24/2020 12:00:00 AM EST [facility] Results ID Date Data Source [id number] 12/22/2020 10:50:50 AM EDT [facility] NT INFORMATIONPatient MRN Name Date of Age Gend*PT [id number] Elizabeth Lawrence 1935 85 years F IPPT Location Admission Date/Time Visit ID Attending [id number] 12/21/20 1027 --- Saad Villareal MD([id number]) EPI ID CSN Admitting Provider [id number] Saad Villareal MD([id number])DISCHARGE SUMMARYAdmission Date: 2020ischarge date: 12/22/20PRINCIPAL DIAGNOSIS: Severe aortic stenosis post successful TAVRCURRENT [id number]-[id number] woman with severe aortic stenosis and shortness [...] Get Your MedicationsThese medications were sent to [id number] AT [facility] & [address] [phone] amoxicillin 500 MG capsule clopidogrel 75 MG tabletSignature: Saad Villareal, MDDate: December 22, 2020Time: 10:45 [facility]: Dr. Maldonado document or parts of this document, were dic tated using [employer] software. A reasonable attempt at proofreading has been made tominimize errors. Please call with any questions or corrections. Name Value Range Interpretation Code Description Data Berkley rce(s) Supporting Document(s) ID Date Data Source [id number] 12/22/2020 10:11:20 AM EDT [facility] Name Value Range Interpretation Code Description Data Berkley rce(s) Supporting Document(s) &PDF [facility] GRNCRb3dXtQUCjUk71/BASwaAUAex0NaEYhoZIe5QYjjPVZxC3QcrJhfWB8DS52BAYcVJXLECS7MRWNt 0b3 [file] s5fZZetSK7k/UW0lizPaHuMFlpy+tvEFxICMuRYlHhKKdI0Bq1+[place]+hDno4njljqZqMSYstAKiOOZxB [file] ICAgICAgICAgICAgICAgICAgICAgICAgICAgICAgIC AgICAgICAgICAgICAgICAgICAgICAgICAgICAgICAgICAgICAgICAgICAgICAgICAgICAgICAgICAgIC ANCiAgICAgICAgICAgICAgICAgICAgICAgICAgICAgICAgICAgICAgICAgICAgICAgICAgICAgICAgIC AgICAgICAgICAgICAgICAgICAgICAgICAgICAgICAg ICAgICAgICAgICANCiAgICAgICAgICAgICAgICAgICAgICAgICAgICAgICAgICAgICAgICAgICAgICAg ICAgICAgICAgICAgICAgICAgICAgICAgICAgICAgICAgICAgICAgICAgICAgICAgICAgICANCiAgICAg ICAgICAgICAgICAgICAgICAgICAgICAgICAgICAgIC AgICAgICAgICAgICAgICAgICAgICAgICAgICAgICAgICAgICAgICAgICAgICAgICAgICAgICAgICAgIC AgICANCiAgICAgICAgICAgICAgICAgICAgICAgICAgICAgICAgICAgICAgICAgICAgICAgICAgICAgIC AgICAgICAgICAgICAgICAgICAgICAgICAgICAgICAg ICAgICAgICAgICAgICANCiAgICAgICAgICAgICAgICAgICAgICAgICAgICAgICAgICAgICAgICAgICAg ICAgICAgICAgICAgICAgICAgICAgICAgICAgICAgICAgICAgICAgICAgICAgICAgICAgICAgICANCiAg ICAgICAgICAgICAgICAgICAgICAgICAgICAgICAgIC AgICAgICAgICAgICAgICAgICAgICAgICAgICAgICAgICAgICAgICAgICAgICAgICAgICAgICAgICAgIC AgICAgICANCiAgICAgICAgICAgICAgICAgICAgICAgICAgICAgICAgICAgICAgICAgICAgICAgICAgIC AgICAgICAgICAgICAgICAgICAgICAgICAgICAgICAg ICAgICAgICAgICAgICAgICANCiAgICAgICAgICAgICAgICAgICAgICAgICAgICAgICAgICAgICAgICAg ICAgICAgICAgICAgICAgICAgICAgICAgICAgICAgICAgICAgICAgICAgICAgICAgICAgICAgICAgICAN CiAgICAgICAgICAgICAgICAgICAgICAgICAgICAgIC AgICAgICAgICAgICAgICAgICAgICAgICAgICAgICAgICAgICAgICAgICAgICAgICAgICAgICAgICAgIC AgICAgICAgICANCjw/zEZlG8rchNYmqwG6I5lpBd7SQi4QSM0mb6KmFQLwIZknzoZqHvsMYcMyJMQdHr hQYje1DQlvNI8XpIWcG6GhI1SgAYyyTD2NYZIlKKNy bWGoMYJsDRJdMmU6YXKtWIexIW8XeCBxYZqeICDrRHIaXcClNOAtCXZeGKPoBUPhRRDBOL2FGnZoT0Ut zQ99QPBJCk1+NSxrbwYxQykKEeN3MLGwf4YgUTx4AB3SARLwJMztMI6OSPGdmS0xCGitAL7XDoBkHfMx WPGKHuLnC35wcOZdSQv9T3PkIdGuSNLmAuenHBMmBU wvTmFtZXMgWyBdDQogID4+ID4+KXkyUN7ERSezyxOiMLRyIr9DFBOeOPR3XHVlaWRzZzBaJFGZJOpsWT 2CyGBaOMU3hW4lXOomUPWvKASlX7eKKuJsrKckCY16hCyzslZyiXJxHAe+Ae5SGO3rw3LiHOd3pjMtPT zwCCZ4HDhcQBWmBMKlPAJoNBG0PPB1MPHWQaJgORAp JANlWGynGBKpKPQnev8DFWIkPAIkEgA1IwPjSQJeQPKnUUtyANMdFYK7VjSwGUIcPTCuLW5ARtHuSDYt CUKeYYHySDWuUJMjtp2NJSKzOKKgJlQiIMAzOWGfRNXdYGorVIImWCArOlOnBJTnMBJuXJ3RZoPwQZQa DQLwKHmdDLLoCUIiof6RNOQrOCVcNEA7GgExSJEqJG BfGJbaKEYyEKE7BWTrNCPuLVMpWJ5CAqTcIXXaQIa6XjVaSSPqEPWivl2NBRHyXRIvDKa0NLSqVZUvHX ZhJFbfQGGuOGF4GFJxEPUqTQQkVT2DGqMeMTAkQFw1TgHbAAUiJPEdev8KYWIzTVVwSTByQLHuUCJyAX CeTMgqNPZvSIEcXvDyZYXrGBEwFP5HSlDiOLQvAFYx IqMoUZAwTBLlzw5PXVMwFGMeLXB6SeYfMRSsXFFiZNseGWHyKMPrLpCsTCJvKBEhKN2CIwBzAJIsOGG8 DHjmZGKwLGMgph1ONELcVJLkRppoEdToBWBuPCWkQPsqQIKuTQFxEDouZZWpTDMiAN7ROoFkIYMgHCmb JACxILIkSRZyid4TYVNbHFEjWyWrXTQoVIJdYQRfAR hsLOQyVJBtNNGdJOGjGRAsGF1GQuJnFBEwFsHsPWntRWOqOGGdbc8ZmFBtfNuikm0ESLnRUw1DbMemWS K7DTvbBu6wcEVxGRQoPVRCIt2GojZdZDMaFZWTFRxnAQYeCWgnJtI7HvS1XYHwMbYxWUApS0R9YQE4Gu evMgAhZfC4CeK8PoIfODlaRJppMoK4CsAjRYC3Peji XfT3LqFbGQLeAJj+CZ4wMYv+Mg4Ph8LbrrV5gaZoSYfgQBZrAy6HVREHW7DPQy== ID Date Data Source [id number] 12/22/2020 08:50:59 AM EDT [address] [address] Name: ELIZABETH LAWRENCEDOB: 1935Sex: FOrdering Provider: OPHELIA GARCÍAAuthorizing Prov: OPHELIA GARCÍAReferring Provider: Procedure Performed: / XR CHEST PORTABLEExam Date: 12/22/2020 07:57MRN: [id number] Number: [id number] Class: InpatientAccount #: [id number] for Exam: mild CHF post TAVRTechnique: AP portable view obtained.Comparison: 2020Findings: TAVR in place. Single lead pacer unchanged position. Improved aeration both lungs compatible with resolved edema. Blunting both costophrenic angles likely tiny effusions.IMPRESSION: Resolved edema.Report electronically signed by: MARYSOL CHRISTIAN On 12/22/2020 8:50 AMWorkstation ID: [id number] Name Value Range Interpretation Code Description Data Berkley rce(s) Supporting Document(s) ID Date Data Source [id number] 12/22/2020 06:19:20 AM EDT [facility] Name Value Range Interpretation Code Description Data Berkley rce(s) Supporting Document(s) SODIUM 144 mmol/L (136-145) [facility] POTASSIUM 4.4 mmol/L (3.6-5.2) [facility] CHLORIDE 113 mmol/L (100-108) H [facility] CO2 26 mmol/L (22-31) [facility] ANION GAP 5 mmol/L (7-16) L [facility] UREA NITROGEN 20 mg/dL (7-24) [facility] CREATININE 0.95 mg/dL (0.60-1.00) [facility] BUN/CREAT RATIO 21.1 RATIO (10.0-20.0) H [facility] GLUCOSE 123 mg/dL (70-99) H [facility] CALCIUM 7.5 mg/dL (8.4-10.2) L [facility] GFR 56 ml/min/1.73m2 (>59) L [facility] GFR ( AMER) >60 ml/min/1.73m2 (>59) [facility] GFR INTERPRETATION [facility] --NORMAL KIDNEY FUNCTION OR MILD DISEASE - GFR >OR= 60CHRONIC KIDNEY DISEASE - GFR 15 - 59RENAL FAILURE - GFR <15 Est. GFR calculation based on the MDRDstudy equation, which assumes a steadystate for creatinine. Est. GFR should notbe used for medication dosing. ID Date Data Source [id number] 12/22/2020 05:50:49 AM EDT [facility] Name Value Range Interpretation Code Description Data Berkley rce(s) Supporting Document(s) WBC 2.1 10*3/uL (4.1-11.0) L [facility] RBC 2.47 10*6/uL (4.00-5.40) L [facility] HGB 8.4 g/dL (12.0-16.0) L [facility] HCT 25.2 % (36.0-47.0) L [facility] MCV 102.3 fL (80.0-95.0) H [facility] MCH 34.2 pg (27.0-32.0) H [facility] MCHC 33.4 g/dL (32.0-36.0) [facility] RDW 22.8 % (10.5-14.5) H [facility] PLT 152 10*3/uL (150-450) [facility] MPV 9.7 fL (7.1-10.7) [facility] ID Date Data Source [id number] 2020 04:32:25 PM EDT [facility] Name Value Range Interpretation Code Description Data Berkley rce(s) Supporting Document(s) EKG [facility] VLYRMf3lSjIPUaViz9TjVoKpSXEnNO2xuym5L7P5kADoX4YumMVpm5ttP8EzC7NpHCKmFUQBEX8NtXEf jb2 [file] B9fvl4GLUKDRhbQ+OSvHGcN3jVweQ9C+MHpZVr5nYlSUzdQAp87B7gcv3KOelBBMERk8j3OEYEm1+elementary supervisor [file] [id number]+MwrdzZVvnDjwITWICSX3ZMjJBQNMF0R= ID Date Data Source [id number] 2020 04:25:28 PM EDT [address] [address] Name: ELIZABETH LAWRENCEDOB: 1935Sex: FOrdering Provider: SAAD VILLAREALAuthoriofe Prov: SAAD VILLAREALReferring Provider: Procedure Performed: / XR CHEST PORTABLEExam Date: 2020 16:13MRN: [id number] Number: [id number] Class: InpatientAccount #: [id number] for Exam: Post TAVR procedureTechnique: AP portable [...] ALBER BRENNAN On 2020 4:25 PMWorkstation ID: [id number] - [id number] Name Value Range Interpretation Code Description Data Bekrley rce(s) Supporting Document(s) ID Date Data Source [id number] 2020 06:13:03 PM EDT [facility] Name Value Range Interpretation Code Description Data Berkley rce(s) Supporting Document(s) MAGNESIUM 2.0 mg/dL (1.7-2.4) [facility] ID Date Data Source [id number] 2020 06:13:03 PM EDT [facility] Name Value Range Interpretation Code Description Data Berkley rce(s) Supporting Document(s) SODIUM 141 mmol/L (136-145) [facility] POTASSIUM 4.0 mmol/L (3.6-5.2) [facility] CHLORIDE 110 mmol/L (100-108) H [facility] CO2 25 mmol/L (22-31) [facility] ANION GAP 6 mmol/L (7-16) L [facility] UREA NITROGEN 21 mg/dL (7-24) [facility] CREATININE 0.88 mg/dL (0.60-1.00) [facility] BUN/CREAT RATIO 23.9 RATIO (10.0-20.0) H [facility] GLUCOSE 131 mg/dL (70-99) H [facility] CALCIUM 7.6 mg/dL (8.4-10.2) L [facility] GFR >60 ml/min/1.73m2 (>59) [facility] GFR ( AMER) >60 ml/min/1.73m2 (>59) [facility] GFR INTERPRETATION [facility] --NORMAL KIDNEY FUNCTION OR MILD DISEASE - GFR >OR= 60CHRONIC KIDNEY DISEASE - GFR 15 - 59RENAL FAILURE - GFR <15 Est. GFR calculation based on the MDRDstudy equation, which assumes a steadystate for creatinine. Est. GFR should notbe used for medication dosing. ID Date Data Source [id number] 2020 06:05:31 PM EDT [facility] Name Value Range Interpretation Code Description Data Berkley rce(s) Supporting Document(s) PT 11.9 s (9.2-11.9) [facility] INR 1.13 [facility] SUGGESTED THERAPEUTIC RANGES USING INR F ORSTABILIZED ANTICOAGULATED PATIENTS:STANDARD DOSE THERAPY INR 2.0-3.0 DVT, PE, PREVENT DVT OR EMBOLISMHIGH DOSE THERAPY INR 2.5-3.5 PREVENT EMBOLISM FROM MECHANICAL HEART VALVE ID Date Data Source [id number] 2020 05:47:18 PM EDT [facility] Name Value Range Interpretation Code Description Data Berkley rce(s) Supporting Document(s) WBC 2.7 10*3/uL (4.1-11.0) L [facility] RBC 2.57 10*6/uL (4.00-5.40) L [facility] HGB 8.8 g/dL (12.0-16.0) L [facility] HCT 26.1 % (36.0-47.0) L [facility] MCV 101.6 fL (80.0-95.0) H [facility] MCH 34.3 pg (27.0-32.0) H [facility] MCHC 33.7 g/dL (32.0-36.0) [facility] RDW 22.5 % (10.5-14.5) [facility] PLT 155 10*3/uL (150-450) [facility] MPV 9.8 fL (7.1-10.7) [facility] ID Date Data Source [id number] 2020 03:54:23 PM EDT [facility] Name Value Range Interpretation Code Description Data [facility] rce(s) Supporting Document(s) &PDF [facility] SYGOHj0mZxCGVaHo31/WPTukIWTqu5MdIZlfDUw4RNvtGDUiR4BnfDqlWG8AR26OSSjFDFENGX3YCYEl 0b3 [file] AgICAgICAgICAgICAgICAgICAgICAgICAgICAgICAg ICAgICAgICAgICAgICAgICAgDQogICAgICAgICAgICAgICAgICAgICAgICAgICAgICAgICAgICAgICAg ICAgICAgICAgICAgICAgICAgICAgICAgICAgICAgICAgICAgICAgICAgICAgICAgICAgICAgICAgICAg DQogICAgICAgICAgICAgICAgICAgICAgICAgICAgIC AgICAgICAgICAgICAgICAgICAgICAgICAgICAgICAgICAgICAgICAgICAgICAgICAgICAgICAgICAgIC AgICAgICAgICAgDQogICAgICAgICAgICAgICAgICAgICAgICAgICAgICAgICAgICAgICAgICAgICAgIC AgICAgICAgICAgICAgICAgICAgICAgICAgICAgICAg ICAgICAgICAgICAgICAgICAgICAgDQogICAgICAgICAgICAgICAgICAgICAgICAgICAgICAgICAgICAg ICAgICAgICAgICAgICAgICAgICAgICAgICAgICAgICAgICAgICAgICAgICAgICAgICAgICAgICAgICAg ICAgDQogICAgICAgICAgICAgICAgICAgICAgICAgIC AgICAgICAgICAgICAgICAgICAgICAgICAgICAgICAgICAgICAgICAgICAgICAgICAgICAgICAgICAgIC AgICAgICAgICAgICAgDQogICAgICAgICAgICAgICAgICAgICAgICAgICAgICAgICAgICAgICAgICAgIC AgICAgICAgICAgICAgICAgICAgICAgICAgICAgICAg ICAgICAgICAgICAgICAgICAgICAgICAgDQogICAgICAgICAgICAgICAgICAgICAgICAgICAgICAgICAg ICAgICAgICAgICAgICAgICAgICAgICAgICAgICAgICAgICAgICAgICAgICAgICAgICAgICAgICAgICAg ICAgICAgDQogICAgICAgICAgICAgICAgICAgICAgIC AgICAgICAgICAgICAgICAgICAgICAgICAgICAgICAgICAgICAgICAgICAgICAgICAgICAgICAgICAgIC AgICAgICAgICAgICAgICAgDQogICAgICAgICAgICAgICAgICAgICAgICAgICAgICAgICAgICAgICAgIC AgICAgICAgICAgICAgICAgICAgICAgICAgICAgICAg BPUeVEXfQYXzCIZvRMFqJXLdMZSrHEJzUPHhGHt0M9cmBLCyTQHjVR3tWAq2Bp5+NBwNWgWiPVS9ioJw pD8EXF1fk9VqJAsqIMGxy6BoGUu6XG3VASMcUVxsGM1DPHkgif5GBEIrIIRarLVLu9lyMfNfNQV0FBIf GprvWD0FORKjQ9uflyBfZHZqHHWGZVheXJCHBE4NRn RtO8KqaI13TBUTMb1+JWafzcTwGzfSPnXyRYRuz0AuCGb8XZ5OTNPbTEnbAH4QWCTuyO1xWPlgBT9YNo MrAKNuMSVIItOoM03yuXQoPWx8M9TyEnErGOPvXkepIGSwFJqgVwKpBGFeOdCqDYueXU0+ID4+DQogIC 5OUZmbipHuCPEzSn5NSGLmKAJ2FHSeeURqUyCaMLIF QEheNX0DjOUwNXV9uQ4mACxjFGAdQFCoK3aRVmCtjVaqWI00eXljpsQjbEKwFKz+Nm1DPD1jg5WoUNc8 sjKyYAcbHIJjWCwpRLYvRNQgHIYmTRF0AZB2APAFIfVeLXJdBVUxRNkkGUQgKRTokp8TRRPcKTDxYyGf AhStSJTzIFLtPWrwFWUiQUN3YpCpNNOuSRKyRP9MSm AcQPQoGLNiCVTyRXGcSPOknc2TZAGuFOPpAnVoUZEzJAKxIYGdTRzrSIAxDCBuYwT5EUXpLUChBS6LJm JoLTAgRKU1BJlpZYWjDDJefn1VIPHtMCAlKsQpAJGiBNNvPAAkCKmkNZIjYSUcKLinQHNdTTSlXA1ZNb MlAKXtMSKpQqBuIRMsAPFyht7RDCMoMLHeOQL9BsFm QFPtXUNhJExhVJQjFYF8CuH7OEIvQLZdXT1DOmJfLUFyLFG6YFuuHOMmEGGprc8KCPCqEIJrAOA4IwWi KDYnCMDcPHhwNEIrYSL4WhM3YHCeNHGwPX9USqOsQBMtKTR8KLAaPVEqZWVabd7TFPIqXGPwBfY5RFIb TQGjELQhCHvnFEQvYLJnMVH0GUXbTIDgJH9GKxYgGV ClIQC7VBJnKXUlBEQuax9MYEEoPGYuPwatQHXcIJWjDLGnBSfgXGZoNUG4CaP8MKHhMUTzBD4UEsQhXT aiVOWWAhp0AUulP1c0KXZrFd7XG8Yvm3MaMvQuLPKDKDhoMX1ysxUuBNUlEd9MO1mMWhu3GaW8YBPnPU uyDqIpKLE7XCjgFuLwA1CpReSyXBZpCT8lTCGfZzQ3 DtLfYUU8XYW0EeU1EWCpVWKzLHS6JOXwJqK7MbYwPL2CUb6GCdU7LCD3gIPqLm6WRBm0CZPFIdHzDH1Y DQo= ID Date Data Source [id number] 2020 03:43:12 PM EDT [facility] NT INFORMATIONPatient MRN Name Date of Age Gend*PT [id number] Elizabeth Lawrence 1935 85 years F IPPT Location Admission Date/Time Visit ID Attending ProviderCV-26 12/21/20 1027 --- Saad Villareal MD([id number]) EPI ID CSN Admitting Provider [id number] Saad Villareal MD([id number])TAVR (Transcatheter Aortic Valve Replacement)Patient Name: Elizabeth LawrenceMedical Record No: [id number] of : 1935 Age 85 yearsPrimary Physician: CHITO BOWDEN MD PCP Uxgt of Surgery: 2020Interventional Vice Chairman: Saad Villareal MDHeart Valve Team: Dr. Green [...] upsizedover a Lunderquist wire to a 14 Swazi Alva sheath. We then advanced a 23 [...] Anticoagulation: PlavixSignature: Saad Villareal MDDate: 2020Time: 3:35 [facility]: Dr. Maldonado document or parts of this document, were dictated using MaPSware. A reasonable attempt at proofreading has been made to minimize errors.Please call with any questions or corrections. Name Value Range Interpretation Code Description Data Berkley e(s) Supporting Document(s) ID Date Data Source [id number] 2020 03:25:01 PM EDT [facility] Name Value Range Interpretation Code Description Data [facility] Supporting Document(s) POC SOURCE [facility] CP BYPASS [facility] POC PH 7.43 pH (7.35-7.45) [facility] POC PCO2 42.5 MMHG (32.0-48.0) [facility] POC PO2 552 MMHG (83-108) H [facility] POC SAT O2 100 % (95-99) H [facility] POC BASE EXCESS 3 MMOL/L (0-3) [facility] POC HCO3 28.0 MMOL/L (21.0-29.0) [facility] POC TOTAL CO2 29 MMOL/L (23.0-32.0) [facility] PERFORMED BY [facility] CLINICAL STAFF POC HCT 23 % (36.0-47.0) L [facility] POC SODIUM 137 MMOL/L (136-145) [facility] POC POTASSIUM 3.8 MMOL/L (3.6-5.2) [facility] POC IONIZED CALCIUM 4.5 MG/DL (4.6-5.3) L [facility] POC GLU 105 MG/DL (70-99) H [facility] PERFORM LAB [facility] ID Date Data Source [id number] 2020 03:28:13 PM EDT [facility] Name Value Range Interpretation Code Description Data Berkley rce(s) Supporting Document(s) POC ACT 263 s (80-140) H [facility] PERFORMED BY [facility] CLINICAL STAFF ID Date Data Source [id number] 2020 03:03:23 PM EDT [facility] NT INFORMATIONPatient MRN Name Date of Age Gend*PT [id number] Elizabeth Lawrence 1935 85 years F SDAPT Location Admission Date/Time Visit ID Attending Provider --- --- --- --- EPI ID CSN Admitting Provider [id number] ---Introducer AdditionsPatient location during procedure: CV hybrid [...] changes to vital signs and catheter flushed [id number] NS Name Value Range Interpretation Code Description Data Berkley rce(s) Supporting Document(s) ID Date Data Source [id number] 2020 03:03:03 PM EDT [facility] NT INFORMATIONPatient MRN Name Date of Age Gend*PT [id number] Elizabeth Lawrence 1935 85 years F SDAPT Location Admission Date/Time Visit ID Attending Provider --- --- --- --- EPI ID CSN Admitting Provider [id number] ---Central Line InsertionPatient location during procedure: CV [...] changes to vital signs and catheter flushed [id number] NS Name Value Range Interpretation Code Description Data Berkley rce(s) Supporting Document(s) ID Date Data Source [id number] 2020 02:46:44 PM EDT [facility] NT INFORMATIONPatient MRN Name Date of Age Gend*PT [id number] Elizabeth Lawrence 1935 85 years F SDAPT Location Admission Date/Time Visit ID Attending Provider --- --- --- --- EPI ID CSN Admitting Provider [id number] ---Arterial Line PlacementPatient location during procedure: ORIndications [...] rce(s) Supporting Document(s) ID Date Data Source [id number] 2020 02:46:13 PM EDT [facility] NT INFORMATIONPatient MRN Name Date of Age Gend*PT [id number] Clementine Elizabeth C 1935 85 years F SDAPT Location Admission Date/Time Visit ID Attending Provider --- --- --- --- EPI ID CSN Admitting Provider [id number] ---AirwayPatient location during procedure: ORUrgency: electiveDifficult airway: [...] cmPlacement verified by: chest auscultation and + [id number]: CTA and equal breath sounds bilateralGrade view: grade IIa - partial view of glottis Name Value Range Interpretation Code Description Data Berkley rce(s) Supporting Document(s) ID Date Data Source [id number] 2020 03:28:13 PM EDT [facility] Name Value Range Interpretation Code Description Data Berkley rce(s) Supporting Document(s) POC ACT 142 s (80-140) H [facility] PERFOR[facility] BY [facility] CLINICAL STAFF ID Date Data Source [id number] 2020 02:48:57 PM EDT [facility] Name Value Range Interpretation Code Description Data Berkley rce(s) Supporting Document(s) POC SOURCE [facility] CP BYPASS [facility] POC PH 7.34 pH (7.35-7.45) L [facility] POC PCO2 52.8 MMHG (32.0-48.0) H [facility] POC PO2 476 MMHG (83-108) H [facility] POC SAT O2 100 % (95-99) H [facility] POC BASE EXCESS 2 MMOL/L (0-3) [facility] POC HCO3 28.2 MMOL/L (21.0-29.0) [facility] POC TOTAL CO2 30 MMOL/L (23.0-32.0) [facility] PERFORMED BY [facility] CLINICAL STAFF POC HCT 26 % (36.0-47.0) L [facility] POC SODIUM 142 MMOL/L (136-145) [facility] POC POTASSIUM 3.9 MMOL/L (3.6-5.2) [facility] POC IONIZED CALCIUM 4.8 MG/DL (4.6-5.3) [facility] POC GLU 106 MG/DL (70-99) H [facility] PERFORM LAB [facility] ID Date Data Source [id number] 2020 11:12:27 AM EDT [facility] Name Value Range Interpretation Code Description Data Berkley rce(s) Supporting Document(s) POC NOVA GLU 104 mg/dL (70-99) H [facility] [place] PERFORMED BY [facility] CLINICAL STAFF ID Date Data Source [id number] 2020 02:28:49 PM EDT [facility] Name Value Range Interpretation Code Description Data Berkley rce(s) Supporting Document(s) ROOM TEMP AB SCREEN [facility] ROOM TEMP AB SCREEN NEGATIVE ID Date Data Source [id number] 12/22/2020 10:31:34 AM EDT [facility] SPEC EXP DATE 12/24/2020ATI ENT ABO/Rh O NEGATIVEANTIBODY SCREEN NEGATIVETESTING SITE PERFORMED AT [address] [place] [address] [place] [address]EQGF NUMBER [id number] COMPONENT TYPE LEUKOPOOR RED CELLSUNIT DIVISION 00STATUS OF UNIT REL FROM ALLOCTRANSFUSION STATUS OK TO TRANSFUSECROSSMATCH RESULT COMPATIBLEUNIT NUMBER [id number] COMPONENT TYPE LEUKOPOOR RED CELLSUNIT DIVISION 00STATUS OF UNIT REL FROM ALLOCTRANSFUSION STATUS OK TO TRANSFUSECROSSMATCH RESULT COMPATIBLE Name Value Range Interpretation Code Description Data Berkley rce(s) Supporting Document(s) TYPE AND SCREEN [facility] ID Date Data Source [id number] 12/16/2020 02:26:40 PM EDT [facility] NT INFORMATIONPatient MRN Name Date of Age Gend*PT [id number] Elizabeth Lawrence 1935 84 years F OPPT Location Admission Date/Time Visit ID Attending Provider --- --- --- Saad Villareal MD([id number]) EPI ID CSN Admitting Provider [id number] ---HISTORY PHYSICALName: Elizabeth Lawrence : 1935 Sex: [...] N/A; COLONOSCOPY HIP FRACTURE SURGERY Right 03/2019 [facility] HYSTERECTOMY PANENDOSCOPYALLERGIES: No Known Drug AllergiesMEDICATIONS:Current Outpatient [...] warm and dry.HEENT: She is normocephalic, atraumatic. Oppelo conjunctivae. Anicteric sclerae.Pupils are equal, round, reactive [...] hepatosplenomegaly. Negative CVAT.GENITAL/RECTAL: Deferred.MUSCLE/SKELETAL: Strength is 5/5. Heat Curer are equal.NEUROLOGICALLY: Cranial nerves II through XII are grossly intact.VASCULAR: Pulses are symmetrical. Minimal peripheral edema.Anesthesia complications: NoneSteroid use: [facility] Frailty Scale :: 4/10 Vulnerable (while [...] parts of this document, were dictated using TripIt software. A reasonable attempt at proofreading has beenmade to minimize errors. Please call with any questions or corrections. Name Value Range Interpretation Code Description Data Berkley rce(s) Supporting Document(s) ID Date Data Source [id number] 12/16/2020 12:06:38 PM EDT [facility] Name Value Range Interpretation Code Description Data Berkley rce(s) Supporting Document(s) EKG [facility] UKLISq5nZlWKJpGnp8BfOzOvXNNzJC0tzay7X2U2fJEcF9ZpqQHmr2lpD3MyB5HdLMPwONEZFP5SbRDc jb2 [file] Gómez+anQefHp07++3T6W3W2loKcuT5IC/lmnT1eVT9J1m+wVNvxdTnZ9pP207iG1tEhocaA9qK+qqp3HM [file] BtWzVXC5vpCu0gMzVvEBCVJ7Ybb3PyVKIoKFAFZq8+PrS4TQF0xBYuZnx1Zkb1LRgbLTJJDm== ID Date Data Source [id number] 12/17/2020 10:50:09 AM EDT [facility] kathleen YANEZ SPECIMEN DESCRIPTION MIDSTREAM UR INE,CLEAN CATCHCULTURE RESULTS NO GROWTHREPORT STATUS FINAL 12/17/2020 Name Value Range Interpretation Code Description Data Berkley rce(s) Supporting Document(s) ID Date Data Source [id number] 12/16/2020 02:29:25 PM EDT [facility] Name Value Range Interpretation Code Description Data Berkley rce(s) Supporting Document(s) COLOR [facility] APPEARANCE [facility] SPEC GRAV URINE 1.012 (1.003-1.030) [facility] PH URINE 5.0 (5.0-7.5) [facility] LEUK ESTERASE (NEG) [facility] NITRITE URINE (NEG) [facility] PROTEIN URINE (NEG) [facility] GLUCOSE URINE (NEG) [facility] KETONE URINE (NEG) [facility] [place] UROBILINOGEN 0.2 mg/dL (0-1.0) [facility] [place] BILIRUBIN URINE (NEG) [facility] BLOOD/HGB URINE (NEG) [facility] ID Date Data Source [id number] 12/17/2020 10:55:41 AM EDT [facility] Name Value Range Interpretation Code Description Data Berkley rce(s) Supporting Document(s) SPECIMEN DESCRIPTION [facility] STAPH SCREEN RESULTS (ONEGSA) [facility] COMMENT [facility] GENE TO DETECT STAPH AUREUS. (2) RT-P CR WAS PERFORMED FOR THE mecA AND SCCmec GENES TO DETECT METHICILLIN RESISTANCE IN STAPH AUREUS. ID Date Data Source [id number] 12/19/2020 06:55:08 PM EDT [facility] Name Value Range Interpretation Code Description Data Berkley rce(s) Supporting Document(s) WBC 2.7 10*3/uL (4.1-11.0) L [facility] [place] RBC 3.01 10*6/uL (4.00-5.40) L [facility] HGB 10.3 g/dL (12.0-16.0) L [facility] HCT 30.5 % (36.0-47.0) L [facility] MCV 101.4 fL (80.0-95.0) H [facility] MCH 34.2 pg (27.0-32.0) H [facility] MCHC 33.7 g/dL (32.0-36.0) [facility] RDW 22.9 % (10.5-14.5) H [facility] PLT 166 10*3/uL (150-450) [facility] MPV 9.8 fL (7.1-10.7) [facility] NEUT % 52.0 % (35.0-75.0) [facility] LYMPH % 33.0 % (16.0-52.0) [facility] ATYP LYMPH % 1.0 % (0.0-5.0) [facility] [place] MONO % 6.0 % (0.0-8.0) [facility] EOS % 8.0 % (0.0-5.0) H [facility] NEUT # 1.4 10*3/uL (1.8-7.7) L [facility] LYMPH # 0.9 10*3/uL (1.2-4.8) L [facility] ATYP LYMPH # 0.0 10*3/uL [facility] MONO # 0.2 10*3/uL (0.0-0.8) [facility] Eosinophils [#/volume] in Blood by Automated count 0.2 10*3/uL (0.0-0 .5) [facility] DOHLE BODIES 1+ [facility] [place] ANISO 2+ [facility] POIK 1+ [facility] MACRO 1+ [facility] LARGE PLT 1+ [facility] DIFF COMMENT [facility] [place] PATHOLOGIST COMM [facility] HYPOGRANULAR NEUTROPHILS. DR VALADEZ [id number] PERFORMED AT [address] [place] [address] ID Date Data Source [id number] 12/16/2020 02:42:20 PM EDT [facility] Name Value Range Interpretation Code Description Data Berkley rce(s) Supporting Document(s) APTT 27.4 s (22.0-34.3) [facility] ID Date Data Source [id number] 12/16/2020 02:42:20 PM EDT [facility] Name Value Range Interpretation Code Description Data Berkley rce(s) Supporting Document(s) PT 10.9 s (9.2-11.9) [facility] INR 1.02 [facility] SUGGESTED THERAPEUTIC RANGES USING INR F ORSTABILIZED ANTICOAGULATED PATIENTS:STANDARD DOSE THERAPY INR 2.0-3.0 DVT, PE, PREVENT DVT OR EMBOLISMHIGH DOSE THERAPY INR 2.5-3.5 PREVENT EMBOLISM FROM MECHANICAL HEART VALVE ID Date Data Source [id number] 12/16/2020 02:34:14 PM EDT [facility] Name Value Range Interpretation Code Description Data Berkley rce(s) Supporting Document(s) NT PRO BNP 1454 pg/mL (0-450) H [facility] ID Date Data Source [id number] 12/16/2020 02:34:14 PM EDT [facility] Name Value Range Interpretation Code Description Data Berkley rce(s) Supporting Document(s) SODIUM 142 mmol/L (136-145) [facility] POTASSIUM 4.1 mmol/L (3.6-5.2) [facility] CHLORIDE 106 mmol/L (100-108) [facility] CO2 31 mmol/L (22-31) [facility] ANION GAP 5 mmol/L (7-16) L [facility] UREA NITROGEN 24 mg/dL (7-24) [facility] CREATININE 0.94 mg/dL (0.60-1.00) [facility] BUN/CREAT RATIO 25.5 RATIO (10.0-20.0) H [facility] GLUCOSE 108 mg/dL (70-99) H [facility] CALCIUM 9.4 mg/dL (8.4-10.2) [facility] TOTAL PROTEIN 6.2 g/dL (6.4-8.2) L [facility] ALBUMIN 3.7 g/dL (3.2-4.5) [facility] GLOBULIN 2.5 g/dL (2.7-4.3) L [facility] ALB/GLOB RATIO 1.5 RATIO [facility] ALKALINE PHOSPHATASE 54 U/L (45-117) [facility] BILIRUBIN,TOTAL 0.8 mg/dL (0.0-1.0) [facility] PLEASE NOTE:Total bilirubin results may be falselyelevated in patients taking Eltrombopag. AST (SGOT) 8 U/L (11-39) L [facility] ALT (SGPT) 12 U/L (12-78) [facility] GFR 56 ml/min/1.73m2 (>59) L [facility] GFR ( AMER) >60 ml/min/1.73m2 (>59) [facility] GFR INTERPRETATION Lab [facility] e of [facility] --NORMAL KIDNEY FUNCTION OR MILD DISEASE - GFR >OR= 60CHRONIC KIDNEY DISEASE - GFR 15 - 59RENAL FAILURE - GFR <15 Est. GFR calculation based on the MDRDstudy equation, which assumes a steadystate for creatinine. Est. GFR should notbe used for medication dosing. ID Date Data Source [id number] 12/16/2020 02:27:09 PM EDT [facility] Name Value Range Interpretation Code Description Data Berkley rce(s) Supporting Document(s) HEMOGLOBIN A1C @ 5.3 % (4.0-6.0) [facility] Performed using Siemens [place] immunoassa y.Care must be taken when interpreting UrQ9elbkevgw in patients with a hemoglobin variantor decreased erythrocyte lifespan. Values 5.7 - 6.4% suggest prediabetes.Values >=6.5% are diagnostic for diabetes.REFERENCE: DIABETES CARE 2018: 41(S13-S27). EST AVERAGE GLUCOSE 105 mg/dL [facility] ID Date Data Source [id number] 12/16/2020 09:20:00 AM EDT [facility] Name Value Range Interpretation Code Description Data Berkley rce(s) Supporting Document(s) SARS coronavirus 2 RNA [Presence] in Res piratory specimen by MIRA with probe detection NOT DETECTED [facility] This lab was reported by [facility]. ID Date Data Source [id number] 12/17/2020 09:11:24 AM EDT [facility] kathleen YANEZ Name Value Range Interpretation Code Description Data Berkley rce(s) Supporting Document(s) SPECIMEN DESCRIPTION [facility] COVID 19 RESULT (NDET) [facility] NEGATIVE COVID-19 RESULTS DONOT PRECLUDE COVID-2019 INFECTION ANDSHOULD NOT BE USED THE SOLE BASISFOR PATIENT MANAGEMENT DECISIONS. COMMENT [facility] THE [place] FDA HAS MADE THIS TEST AVAILABL EUNDER AN EMERGENCY USE AUTHORIZATION(EUA) FOR THE DETECTION AND/OR DIAGNOSISOF THE VIRUS THAT CAUSES COVID-19.THIS ASSAY AMPLIFIES AND DETECTS TARGETDNA USING MANAGEMENT SCIENTIST- MEDIATEDAMPLIFICATIONTESTING PERFORMED ON Seakeeper FIRST TEST [facility] [place] [facility] SYMPTOMATIC [facility] Benavidez DATE OF SYMPT ONSET [facility] HOSPITALIZED [facility] [place] [facility] CONGREGATE CARE SET [facility] ID Date Data Source [id number] 12/13/2020 10:52:00 AM EDT [facility]: CT A NGIO CHEST ABDOMEN PELVIS TAVRCLINICAL HISTORY: Severe aortic stenosis. TAVR.COMPARISON: CT chest April 28, 2019, CT abdomen and pelvis April 06, 2019. Those examinations are performed at [facility].TECHNIQUE: ECG gated images were obtained through the [...] rce(s) Supporting Document(s) ID Date Data Source [id number] 12/08/2020 06:56:00 AM EDT [facility] [address] [id number] FOLLOW UP NOTENAME: ELIZABETH LAWRENCE CPHYSICIAN: MARLI RED, MDDATE OF SERVICE: 12/07/20DATE OF : 31CCOUNT #: [id number]: ELIZABETH LAWRENCEDate: Dec 07OB: Dec 21hysician: Marli [...] 05, 2020 flow cytometry no significant immunophenotypicabnormality hujugnly92.July 19, 2020 hemoglobin 9.9 hematocrit 29.3 WBC 2.4 platelets 190differential neutrophils 49% lymphocytes 39% monocytes 7%Absolute neutrophilcount [id number].September 30, 2020 hemoglobin 7.2 hematocrit 23.1 WBC [...] 981k. OnDecember 25, 2013.She was admitted to [facility] on April 20, 2013 when shepresented with [...] 13 Mutations. Testing for MPL W515 and JSSZ084 mutation was also negative. There was no [...] earlyJanuary. 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 Ms. 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 She is an active drinker.Ms. LAWRENCE reports no [facility] with [facility].Ms. LAWRENCE reports the following support systems: lives [...] the night.Vital Signs:Performed on Dec 07, 2020 12:92Baahyd55.00 exRpdoyp244 lbs(LOW)BSA (derived)1.59 sq.mBMI25.67Zcmqyxzuntn39.8 OAaylm79 /fyaJweefvxzmol73 /elvLD190/68Pulse Oximetry (O2 Sat)95 %(LOW)Performance Status:1 - No [...] Oct 10, 2020 12:08WBC3.28 x10E3/uL(LOW)RBC2.12 x10E6/uL(LOW)HGB7.5 g/dL(LOW)HCT23.2 %(LOW)XBG630.4 fL(HIGH)MCH35.4 pg(HIGH)MCHC32.3 g/dL(LOW)RDW16.8 %(HIGH)Platelet Tscjm165 x10E3/uLMPV11.7 fl(HIGH)Manual Segs %40 %Manual Bands %1 [...] Oct 10, 2020 12:05Blood TypeO NEGATIVECrossmatchUNIT NUMBER: [id number]: YPRODUCT: LEUKO REDUCED RED BLOOD CELLSSOURCE: [facility] TYPE: O NEGATIVEVOLUME: 313MLCROSSMATCH COMPONENTS:UNIT NUMBER: [id number]: YPRODUCT: LEUKO REDUCED RED BLOOD CELLSSOURCE: [facility] TYPE: O NEGATIVEVOLUME: 400MLCROSSMATCH COMPONENTS:UNIT NUMBER: [id number]: YPRODUCT: LEUKO REDUCED RED BLOOD CELLSSOURCE: [facility] TYPE: O NEGATIVEVOLUME: 301MLCROSSMATCH COMPONENTS:Type & ScreenBLOOD TYPE O NEGATIVEANTIBODY SCREEN NEGATIVEBLOOD TYPE O NEGATIVEANTIBODY SCREEN NEGATIVEOther test results are not available for this patient.Impression:#1. Essential thrombocytosis.#2. Hypertension.#3. History of stroke.#4. Use of oasm-uzf-tgzhrbp supplementsPlan:#1. Essential thrombocytosis-Platelets on most recent CBC [...] off aspirinat this time.Electronically signed by:Marli Red [facility]: Name Value Range Interpretation Code Description Data Berkley rce(s) Supporting Document(s) ID Date Data Source [id number] 12/09/2020 12:42:00 PM EDT [facility] Name Value Range Interpretation Code Description Data Berkley rce(s) Supporting Document(s) [id number] TRANSFUSED PRODUCT: PACKED CELLS CO UNT: 2 [facility] ID Date Data Source [id number] 12/09/2020 12:42:00 PM EDT [facility] *Hgb < 9.0g/dL with Chronic Transfusion Therapy YIrradiated? NCMV Negative? NTransfuse 2units over 2UNIT NUMBER: [id number]: YPRODUCT: LEUKO REDUCED RED BLOOD CELLSSOURCE: [facility] TYPE: O NEGATIVEVOLUME: 337MLCROSSMATCH COMPONENTS:0UNIT NUMBER: [id number]: YPRODUCT: LEUKO REDUCED RED BLOOD CELLSSOURCE: [facility] TYPE: O NEGATIVEVOLUME: 346MLCROSSMATCH COMPONENTS:0 Name Value Range Interpretation Code Description Data Berkley rce(s) Supporting Document(s) ID Date Data Source [id number] 12/09/2020 12:42:00 PM [facility] *Hgb < 9.0g/dL with Chronic Transfusion Therapy YIrradiated? NCMV Negative? NTransfuse 2units over 2 Name Value Range Interpretation Code Description Data Berkley rce(s) Supporting Document(s) BLOOD TYPE O NEGATIVE N [facility] ANTIBODY SCREEN NEGATIVE N [facility] al ID Date Data Source [id number] 12/07/2020 02:12:00 PM EDT [facility] Name Value Range Interpretation Code Description Data Berkley rce(s) Supporting Document(s) WBC 2.48 x10E3/uL 4.0-10.5 [facility] RBC 2.07 x10E6/uL 4.20-5.40 L [facility] Hemoglobin 7.4 g/dL 12.0-16.0 PL [facility] Hematocrit 22.2 % 37.0-47.0 L [facility] MCV 107.2 fL 81.0-99.0 H [facility] MCH 35.7 pg 27.0-31.0 H [facility] MCHC 33.3 g/dL 32.7-35.6 [facility] RDW 20.0 % 11.5-14.0 H [facility] Platelet count 178 x10E3/uL 150-450 N [facility] ital MPV 11.4 fl 6.9-9.5 H [facility] SEG. NEUTROPHIL 43 % 34-64 [facility] BAND 1 % 5-11 L [facility] LYMPHOCYTE 40 % 25-45 [facility] EOSINOPHILS 7 % 0-7 [facility] MONOCYTES 9 % 2-10 [facility] PLATELET MORPH 1+ PLT SIZE VARIES [facility] PLATELET MORPHOLOGY EXPECTED RESULT:NORM AL = NO [...] by the provider. ID Date Data Source [id number] 12/06/2020 11:44:00 AM EDT [facility] Value Range Interpretation Code Description Data Berkley rce(s) Supporting Document(s) Folate [Mass/volume] in Serum or Plasma >20.0 NG/ML 5.6 - 45.8 [facility] ID Date Data Source [id number] 12/06/2020 11:43:00 AM EDT [facility] Value Range Interpretation Code Description Data Berkley rce(s) Supporting Document(s) Ferritin [Mass/volume] in Serum or Plasma 518.3 ng/mL 3.0 - 105 H [facility] ID Date Data Source [id number] 12/06/2020 11:43:00 AM T [facility] Value Range Interpretation Code Description Data Berkley rce(s) Supporting Document(s) Cobalamin (Vitamin B12) [Mass/volume] in Serum or Plasma 408 PG/ML 232 - 1245 [facility] ID Date Data Source [id number] 12/06/2020 11:24:00 AM EDT [facility] Value Range Interpretation Code Description Data Berkley rce(s) Supporting Document(s) Iron [Mass/volume] in Serum or Plasma 99 UG/DL 42 - 135 [facility] Iron binding capacity.unsaturated [Mass/volume] in Serum or Plasma 78 UG/DL 112 - 347 L [facility] Iron binding capacity [Mass/volume] in Serum or Plasma 177 ug/dL 250 - 450 L [facility] Iron saturation [Mass Fraction] in Serum or Plasma 56 % [place] [facility] Source [id number] 12/06/2020 11:24:00 AM EDT [facility] Name Value Range Interpretation Code Description Data Berkley rce(s) Supporting Document(s) COMPREHENSIVE METABOLIC PANEL [facility] COMPREHENSIVE METABOLIC PANEL Sodium [Moles/volume] in Serum or Plasma 140 mEq/L 134 - 153 [facility] Potassium [Moles/volume] in Serum or Plasma 4.0 mEq/L 3.6 - 5.0 [facility] Chloride [Moles/volume] in Serum or Plasma 103 mEq/L 98 - 107 [facility] Carbon dioxide, total [Moles/volume] in Serum or Plasma 28 MEQ/L 22 - 30 [facility] Glucose [Mass/volume] in Serum or Plasma 102 MG/DL 70 - 99 H [facility] BUN 27 MG/DL 7 - 21 H [facility] Creatinine [Mass/volume] in Serum or Plasma 1.0 MG/DL 0.7 - 1.5 [facility] BUN/CREAT 27 8 - 27 [facility] Protein [Mass/volume] in Serum or Plasma 6.4 G/DL 6.3 - 8.2 [facility] Albumin [Mass/volume] in Serum or Plasma 4.5 G/DL 3.9 - 5.0 [facility] Globulin [Mass/volume] in Serum by calculation 1.9 GM/DL 2.4 - 3.2 L [facility] A/G RATIO 2.4 0.8 - 2.0 [facility] Calcium [Mass/volume] in Serum or Plasma 9.3 MG/DL 8.4 - 10.2 [facility] Bilirubin.total [Mass/volume] in Serum or Plasma 0.8 MG/DL 0.2 - 1.3 [facility] Alkaline phosphatase [Enzymatic activity/volume] in Serum or Plasma 50 U/L 38 - 126 [facility] Aspartate aminotransferase [Enzymatic activity/volume] in Serum or Plasma 10 U/L 5 - 40 [facility] Alanine aminotransferase [Enzymatic activity/volume] in Seru m or Plasma 6 U/L 7 - 56 L [facility] Anion gap 3 in Serum or Plasma 9.0 mmol/L 8.0 - 16.0 [facility] AGE 84 yrs [facility] NON-AA GFR 56 mL/min [facility] AFR AMER GFR >60 [facility] Male GFR In [...] >32 mL/min Normal ID Date Data Source [id number] 12/06/2020 11:18:00 AM EDT [facility] Name Value Range Interpretation Code Description Data Berkley rce(s) Supporting Document(s) CBC W/AUTOMATED DIFF [facility] COMPLETE BLOOD COUNT Leukocytes [#/volume] in Blood by Automated count 2.4 10^3/uL 4.2 - 1 1.0 L [facility] Erythrocytes [#/volume] in Blood by Automated count 2.26 10^6/uL 4. 20 - 5.40 L [facility] Hemoglobin [Mass/volume] in Blood 8.0 g/dL 12.0 - 16.0 L [facility] Hematocrit [Volume Fraction] of Blood by Automated count 24.5 % 3 7.0 - 47.0 L [facility] Erythrocyte mean corpuscular volume [Entitic volume] b y Automated count 108.4 fL 81.0 - 101 H [facility] Erythrocyte mean corpuscular hemoglobin [Entitic mass] by Automated count 35.4 pg 27.0 - 34.0 H [facility] Erythrocyte mean corpuscular hemoglobin concentration [Mass/volume] by Automated count 32.7 g/dL 31.0 - 36.0 [facility] Erythrocyte distribution width [Ratio] by Automated count 20.5 % 11.5 - 14.5 H [facility] Platelets [#/volume] in Blood by Automated count 189 10^3/uL 150 - 45 0 [facility] Platelet mean volume [Entitic volume] in Blood by Automated count 10.9 fL 7.4 - 10.4 H [facility] Neutrophils/100 leukocytes in Blood by Automated count 47.9 % 37. 0 - 80.0 [facility] Lymphocytes/100 leukocytes in Blood by Manual count 30.5 % 25.0 - 40.0 [facility] Monocytes/100 leukocytes in Blood by Automated count 12.7 % 3.0 - 8.0 H [facility] Eosinophils/100 leukocytes in Blood by Automated count 8.1 % 0.0 - 7.0 H [facility] Basophils/100 leukocytes in Blood by Automated count 0.0 % 0.0 - 2.5 [facility] %IG 0.8 % 0.0 - 0.0 [facility] 0.[facility] % 0.0 - 0.0 [facility] Neutrophils [#/volume] in Blood by Automated count 1.13 10^3/uL 2.00 - 6.90 L [facility] Lymphocytes [#/volume] in Blood by Automated count 0.72 10^3/uL 0.60 - 3.40 [facility] Monocytes [#/volume] in Blood by Automated count 0.30 10^3/uL 0.00 - 0.90 [facility] Eosinophils [#/volume] in Blood by Automated count 0.19 10^3/uL 0.00 - 0.70 [facility] Basophils [#/volume] in Blood by Automated count 0.00 10^3/uL 0.00 - 0.20 [facility] #IG 0.02 10^3/uL 0.00 - 0.10 [facility] #NRBC 0.00 10^3/uL 0.00 - 0.00 [facility] MANUAL DIFF SEE BELOW [facility] Segmented neutrophils/100 leukocytes in Blood by Manual count 40 % 37 - 80 [facility] %LYMPH 42 % 25 - 40 H [facility] %MONO 6 % 3 - 8 [facility] %EOS 10 % 0 - 7 [facility] GIANCARLO LYM 2 % [facility] RBC MORPH SEE BELOW [facility] Anisocytosis [Presence] in Blood by Light microscopy 1+ MANA L: NONE SEEN A [facility] Macrocytes [Presence] in Blood by Light microscopy 1+ NORMAL: NONE SEEN A [facility] HYPO 1+ NORMAL: NONE SEEN A [facility] { SICKLE CELL (NORMAL: NONE SEEN ) Platelet adequacy [Presence] in Blood by Light microscopy NORMAL NORMAL: NORMAL [facility] COMMENT: ID Date Data Source [id number] 11/21/2020 05:19:03 PM EDT [place] [id number] Name: ELIZABETH DUARTEB: 1935Sex: FOrdering Provider: GRACIE Alejandre Prov: GRACIE Loera Provider: Procedure Performed: / US CAROTID BILATERALExam Date: 11/21/2020 16:24MRN: [id number] Number: [id number] Class: OutpatientAccount #: [id number] for Exam: TAVR protocolTechnique: Duplex sonography was [...] NBA DONIS On 11/21/2020 5:19 PMWorkstation ID: [id number] Name Value Range Interpretation Code Description Data Berkley rce(s) Supporting Document(s) ID Date Data Source [id number] 11/21/2020 04:24:14 PM EDT [facility] NT INFORMATIONPatient MRN Name Date of Age Gend*PT [id number] Elizabeth Lawrence 1935 84 years F HOPPT Location Admission Date/Time Visit ID Attending [id number] 11/21/20 1122 --- Saad Villareal MD([id number]) EPI ID CSN Admitting Provider [id number] Saad Villareal MD([id number])Cardiovascular and Thoracic Surgery HISTORY & PHYSICAL1Chief Compliant [...] Laterality Date [facility].Social History:Social HistorySocioeconomic History [...] Social Gatherings with Friends and Family: Attends [employer] Services: Active Member of Clubs or Organizations: [...] PRN, Amelia Jacome MD, 5 mg at [id number] of SystemsReview of Systems - History obtained [...] Dominique NP Studydate: 09/21/20Patient InformationPatient NameElizabeth Lawrence ([id number]) Legal SexFemale DOB14Reason for Examshortness of breath [...] in discussion with the patient.Kurt Weller MD [facility] FACSCardiovascular Thoracic Yeh rgery11/21/2020, 4:10 PM Name Value Range Interpretation Code Description Data Berkley rce(s) Supporting Document(s) ID Date Data Source [id number] 11/21/2020 03:34:45 PM EDT [facility] ServicesPAT[facility] NT INFORMATIONPatient MRN Name Date of Age Gend*PT [id number] Elizabeth Lawrence 1935 84 years F HOPPT Location Admission Date/Time Visit ID Attending [id number] 11/21/20 1122 --- Saad Villareal MD([id number]) EPI ID CSN Admitting Provider [id number] Saad Villareal MD([id number])ADMISSION HISTORY AND PHYSICALName: Elizabeth Lawrence Gender: femaleDate of : 1935 Age: [...] Laterality Date [facility].Social HistorySocial History Narrative [...] Social Gatherings with Friends and Family: Attends [employer] Services: Active Member of Clubs or Organizations: [...] Weight: 59.3 kg (130 lb 11.7 oz)Physical KaqpVXVq6Mrtg: No JVDHeart: Reg S1S2, 0/6 MLungs: CTA bilaterallyAbdomen: ND, +BS, Soft, NTExt: No clubbing, cyanosis, edemaDiagnostics echo : reviewed and abnorml.Assessment & PlanIndication:Pre- AVR workup.Risks and benefits of the procedure were discussed with the patient. Risksinclude but are not limited to bleeding, infection, stroke, [place], arrhythmia, needfor emergency surgery, and KEIRA. Patient understands the risk and is agreeableto proceed with the procedure.Aspirin: yesPlavix: yes Name Value Range Interpretation Code Description Data Berkley rce(s) Supporting Document(s) ID Date Data Source [id number] 11/21/2020 03:19:00 PM EDT [facility] Name Value Range Interpretation Code Description Data Berkley rce(s) Supporting Document(s) &PDF [facility] BCLAVa6uQhXPJmAa36/KFMijLMKoq6FvLLxgTJe8PLwlXRQqU5DlcOmeSQ5GN76UJNtOQYSYAD3YKH1x oRX [file] AgICAgICAgICAgICAgICAgICAgICAgICAgICAgICAg ITYsKITeTSJzRGZlIEJrVGJdAWPzRHTxHMKqZFYeQGZjGTSuOHToOTCtYKZcXXCrIWNcAXVvFQVrMU3Z ICAgICAgICAgICAgICAgICAgICAgICAgICAgICAgICAgICAgICAgICAgICAgICAgICAgICAgICAgICAg ICAgICAgICAgICAgICAgICAgICAgICAgICAgICAgIC XiDWEeTYNfGD1YINSaCHBnVOXyJXVjXHUzMDNbMEVlTCTySRCzWCHoNOHaAEXwILZkMKNwKSLcFZOhRT MaFHYhANPjGMHcZLOcIAKdFXRyOEWuETBrDFAzHKRwFIXxDLMzEBCyGRVaNIRaENPwBC6YTIOeCRMuRL AgICAgICAgICAgICAgICAgICAgICAgICAgICAgICAg ICAgICAgICAgICAgICAgICAgICAgICAgICAgICAgICAgICAgICAgICAgICAgICAgICAgICAgICAgICAg NL7XTZKwRYZhQWIdDKBoZYCzYCEtCYLkEPQzJAYjXZAcBHMiSARdDIKjUJTsQWFnKBVzUFCzSKDjUFQd ICAgICAgICAgICAgICAgICAgICAgICAgICAgICAgIC JeOHWaCPTgCJBnER4AGHPpGPZsKMZdBZSnOIGxXQZzCBKpRRBgLDMzHJOvUNPzLKHqNYNjCECaWCYbIJ CnQIDwKVYzYDZdQKHvTGXfMYQwMQGbDNSbXISuWLHvUSNiXTDvGAWgTCOtZHJpFZYrCLYqDA3KRKJrXR AgICAgICAgICAgICAgICAgICAgICAgICAgICAgICAg ICAgICAgICAgICAgICAgICAgICAgICAgICAgICAgICAgICAgICAgICAgICAgICAgICAgICAgICAgICAg JSTxCZ7NXDDiHVDwPEDtPRTyPIRkUMVlKJCtUPEmKAKgYATxFGVjTNGkMHWmNRBwLGEnRGWnZMQkSFWm ICAgICAgICAgICAgICAgICAgICAgICAgICAgICAgIC QfRDQsWAGkUNPpLYYyPY0PLUCaWIGtTJHbTAEqWBEgFCDxQHMwNPBhDMPcTRZlEJSwKIYqHTJeVJQcUY GzJIOzNSOvJCPjSWNuGIIuMQPmMWHeEKVoSSHsQWWbCAHzIOOfAAJrOFAsTUMjHFSdAVAvVJWbLG0AWV AgICAgICAgICAgICAgICAgICAgICAgICAgICAgICAg ICAgICAgICAgICAgICAgICAgICAgICAgICAgICAgICAgICAgICAgICAgICAgICAgICAgICAgICAgICAg RFRmFERuMS9OOR33cCEsp2Z5HRRjSI2kbru/Vj3YHMetcsMwtGMvWF4ANcLgHP9ovt5BWbRrZV8ifp4P ZJaIPcPuS5F4pVWuDQIdXVMFIwWgO15jPSqyMf87VX odRDKkFeKuKEk7Ln6SFqJlM3xuZZJeDsB9CWUfTmR5ZXVaAkI8PQQzFlQiOOGkUWWfZS9KYYCnZ441ah XgMG4YLm8SGrTrEY4ptb1UWhAqDABhHuxDRtx6YMeaTV3GnZOhhZWcKGMeGFVLKmSyZ6oxr7ApXtOfRI HOUFmbRP6Nl4TurHTkRGn+Td8XWI7xg9LyNKnaPNHw MA0eag4OKGoOKgVcD6WilBntAVepuHddkpAyOM0PWUTmPKVoaGRwWRtjLBQIMZ4GUYbkVPDiMKUvkwEk lFKeYWasGM5QAZCsbyCoVdWhNWZBUKk+Jc6LQS5pj6MxQPbrThQmOI8drb1IKZmDRqYnJ0X8mAJbE5Z3 AKghRk7GHHTmNEWcJuQvMHBEVXdnCP1MRE8jceO2GE 8GnAXnJQClBLFokISeUUt5K59vuBFcSJsrUH8BQND+Antonette+Xo4CYVUyCLJfLLNuUrOzSCRRCeMvS0OiS9 VMx2JgP3OmEU86pKxffyZkJQwpOG1LZR3cBRMsUVCFUX9FcFUmtD8wmsDlARGjYUNXXeRqQ81hjNTdHS RkHJCeJLDtCh1JMNPtS7MjpuNteUjoliTuWTPzWPGC RJ5CLNndmrAqtEBsoBgqNC82aTnbKX2SZy9GWmHcDX5ipf3ChZNvBy0GMPUvVe3CZMOpJSQxYIFsBXB6 QHHqHgSkXCccORYkPCHyNMA8FKFyINWaMJ0SNiXbMYOrXwLpRLdlVDXcZWUdgb9BGIKoIXLkMUcuEzOf WXMdOWOnPRagHKKnLHKsFYecMMKuCDOaTM8JOvWqHW MbKRAjUFQdCHBsXQVelq7ZWYOrIDNvXlUyXIKfGTOePPNuKTxrJFYzTXH0XxY4JDUgHYFgNA5TYvEfAD DvCFS3CqsqHIYyIITefl3VNWAxXZBnQoR9LeQfYSQdYFUmYHbsWYTnCPE5IIH6TELnSCVeDA1ATvIaTX QsWWalTArgNOOsIYSyhn4XNBQmTXIcMgQcHRCbDDYw TGRjYAqwBKZaCOP5YJR2QWXuQNIiBU2JBnGoHWNkYBp7GbBzXZZmPCNnbr1ZTNMeQDKwSWv3ISLwNQZz EIEhMQmeNEQwBKU5EVM5RYIhIFDkIY6EGvGnEIXyZXDhELFkGSXoNMPzey1KPSEkALLgMQX9JPHmAQQi RJGmQLxoDKJiYSUsIBc9NSUvWOKvFN3CGyYlMTDsLO L1SQKhWEVvNKIqri8NBCDjLILuXUK7VJXpVLEaKMKwVRfbBIOfMRIhPTW1HPGoBHHjYA5XTzGvNKGzSc K9COAzXMJuNGIyfi3MAARsQWQsCcM2SsPdOVQoHJUbCQmjAAPlYFOeVNC5LOPtBHQxEW9YDjDwZYCoBh JwVKXnHDPmKRGbeb8UlSFitMggdx6OWVoAEu3BnLyj BMF4ZZipQk4jwFGpEpNcIAZYTu3TwwRdQPYgDFXRCQtjNTEyHYBxUlAxW7SyFdJsCcwzTpX8MBZ6FSX0 DHUxCca5QLFqBmX4VgB1MFI6STYpOSX6O7HbTRZgQzwkMLY9TGY7PNfbAIU+CB4xZYh+He4Ro5EtseI5 agSnNZzmMcI2Yj3TUJMJV5VUIh== ID Date Data Source [id number] 11/21/2020 12:31:58 PM EDT [facility] Name Value Range Interpretation Code Description Data Berkley rce(s) Supporting Document(s) EKG [facility] EAXTVe8vExWZCnMfn4WqBwTiDKVsYW5mhtr5Z2J1bZSfU3BtcVJjy5meV4BmY6EzPVUnAHFKBR0FzZTw jb2 [file] ID Date Data Source [id number] 11/09/2020 04:48:46 PM EDT [facility] ServicesPATIE NT INFORMATIONPatient MRN Name Date of Age Gend*PT [id number] Georgina Lawrenceann 1935 84 years F ---PT Location Admission Date/Time Visit ID Attending Provider --- --- --- --- EPI ID CSN Admitting Provider [id number] ---Addended by: BURT DOMINIQUE on: 11/09/2020 04:48 PM Modules accepted: Orders Name Value Range Interpretation Code Description Data Berkley rce(s) Supporting Document(s) ID Date Data Source [id number] 10/27/2020 09:05:00 AM EDT [facility] Name Value Range Interpretation Code Description Data Berkley rce(s) Supporting Document(s) CVE PANEL [facility] LIPID PANEL Cholesterol [Mass/volume] in Serum or Plasma 135 MG/DL 131 - 200 [facility] Deprecated Triglyceride [Mass/volume] in Serum or Plasma 58 MG/DL 3 5 - 160 [facility] HDL 53 MG/DL 29 - 86 [facility] Cholesterol in LDL [Mass/volume] in Serum or Plasma by Direc t assay 81 mg/dL 65 - 175 [facility] Cholesterol.total/Cholesterol in HDL [Mass Ratio] in Serum o r Plasma 2.5 3.2 - 4.4 L [facility] LDL/HDL 1.53 1.47 - 3.22 [facility] CVE RISK CHOL/HDL LDL/HDLMEN: 1/2 AVERAGE 3.43 1.00 AVERAGE 4.97 3.55 2X AVERAGE 9.55 6.25 3X AVERAGE 23.99 7.99WOMEN: 1/2 AVERAGE 3.27 1.47 AVERAGE 4.44 3.22 2X AVERAGE 7.05 5.03 3X AVERAGE 11.04 6.14 ID Date Data Source [id number] 10/27/2020 09:05:00 AM EDT [facility] Name Value Range Interpretation Code Description Data Berkley rce(s) Supporting Document(s) COMPREHENSIVE METABOLIC PANEL [facility] COMPREHENSIVE METABOLIC PANEL Sodium [Moles/volume] in Serum or Plasma 141 mEq/L 134 - 153 [facility] Potassium [Moles/volume] in Serum or Plasma 4.4 mEq/L 3.6 - 5.0 [facility] Chloride [Moles/volume] in Serum or Plasma 106 mEq/L 98 - 107 [facility] Carbon dioxide, total [Moles/volume] in Serum or Plasma 28 MEQ/L 22 - 30 [facility] Glucose [Mass/volume] in Serum or Plasma 99 MG/DL 70 - 99 [facility] BUN 24 MG/DL 7 - 21 H [facility] Creatinine [Mass/volume] in Serum or Plasma 0.9 MG/DL 0.7 - 1.5 [facility] BUN/CREAT 27 8 - 27 [facility] Protein [Mass/volume] in Serum or Plasma 6.0 G/DL 6.3 - 8.2 L [facility] Albumin [Mass/volume] in Serum or Plasma 4.0 G/DL 3.9 - 5.0 [facility] Globulin [Mass/volume] in Serum by calculation 2.0 GM/DL 2.4 - 3.2 L [facility] A/G RATIO 2.0 0.8 - 2.0 [facility] Calcium [Mass/volume] in Serum or Plasma 8.8 MG/DL 8.4 - 10.2 [facility] Bilirubin.total [Mass/volume] in Serum or Plasma <0.7 MG/DL 0.2 - 1.3 [facility] Alkaline phosphatase [Enzymatic activity/volume] in Serum or Plasma 51 U/L 38 - 126 [facility] Aspartate aminotransferase [Enzymatic activity/volume] in Se rum or Plasma 9 U/L 5 - 40 [facility] Alanine aminotransferase [Enzymatic activity/volume] in Seru m or Plasma 7 U/L 7 - 56 [facility] Anion gap 3 in Serum or Plasma 7.0 mmol/L 8.0 - 16.0 L [facility] AGE 84 yrs [facility] NON-AA GFR >60 mL/min [facility] AFR AMER GFR >60 [facility] Male GFR In [...] >32 mL/min Normal ID Date Data Source [id number] 10/27/2020 08:54:00 AM EDT [facility] Name Value Range Interpretation Code Description Data Berkley rce(s) Supporting Document(s) CBC W/AUTOMATED DIFF [facility] COMPLETE BLOOD COUNT Leukocytes [#/volume] in Blood by Automated count 2.6 10^3/uL 4.2 - 1 1.0 L [facility] Erythrocytes [#/volume] in Blood by Automated count 3.15 10^6/uL 4. 20 - 5.40 L [facility] Hemoglobin [Mass/volume] in Blood 10.4 g/dL 12.0 - 16.0 L [facility] Hematocrit [Volume Fraction] of Blood by Automated count 32.0 % 3 7.0 - 47.0 L [facility] Erythrocyte mean corpuscular volume [Entitic volume] b y Automated count 101.6 fL 81.0 - 101 H [facility] Erythrocyte mean corpuscular hemoglobin [Entitic mass] by Automated count 33.0 pg 27.0 - 34.0 [facility] Erythrocyte mean corpuscular hemoglobin concentration [Mass/volume] by Automated count 32.5 g/dL 31.0 - 36.0 [facility] Erythrocyte distribution width [Ratio] by Automated count 16.7 % 11.5 - 14.5 H [facility] Platelets [#/volume] in Blood by Automated count 162 10^3/uL 150 - 45 0 [facility] Platelet mean volume [Entitic volume] in Blood by Automated count 11.2 fL 7.4 - 10.4 H [facility] Neutrophils/100 leukocytes in Blood by Automated count 39.6 % 37. 0 - 80.0 [facility] Lymphocytes/100 leukocytes in Blood by Manual count 40.5 % 25.0 - 40.0 H [facility] Monocytes/100 leukocytes in Blood by Automated count 10.3 % 3.0 - 8.0 H [facility] Eosinophils/100 leukocytes in Blood by Automated count 6.5 % 0.0 - 7.0 [facility] 0.4 %IG 2.7 % 0.0 - 0.0 H [facility] %NRBC 0.0 % 0.0 - 0.0 [facility] Neutrophils [#/volume] in Blood by Automated count 1.04 10^3/uL 2.00 - 6.90 L [facility] Lymphocytes [#/volume] in Blood by Automated count 1.06 10^3/uL 0.60 - 3.40 [facility] Monocytes [#/volume] in Blood by Automated count 0.27 10^3/uL 0.00 - 0.90 [facility] Eosinophils [#/volume] in Blood by Automated count 0.17 10^3/uL 0.00 - 0.70 [facility] Basophils [#/volume] in Blood by Automated count 0.01 10^3/uL 0.00 - 0.20 [facility] #IG 0.07 10^3/uL 0.00 - 0.10 [facility] #NRBC 0.00 10^3/uL 0.00 - 0.00 [facility]spital MANUAL DIFF SEE BELOW [facility] ital Segmented neutrophils/100 leukocytes in Blood by Manual count 42 % 37 - 80 [facility] BAND 2 % 0 - 5 [facility] %LYMPH 38 % 25 - 40 [facility] %MONO 8 % 3 - 8 [facility] %EOS 8 % 0 - 7 H [facility] 2 RBC MORPH SEE BELOW [facility] Anisocytosis [Presence] in Blood by Light microscopy 1+ MANA L: NONE SEEN A [facility] Microcytes [Presence] in Blood by Light microscopy 1+ NORMAL: NONE SEEN A [facility] HYPO 1+ NORMAL: NONE SEEN A [facility] { SICKLE CELL (NORMAL: NONE SEEN ) HELMET CELLS 1+ NORMAL: NONE SEEN A [facility] Platelet adequacy [Presence] in Blood by Light microscopy NORMAL NORMAL: NORMAL [facility] COMMENT: ID Date Data Source [id number] 10/10/2020 12:58:00 PM EDT [facility] Name Value Range Interpretation Code Description Data Berkley rce(s) Supporting Document(s) WBC 3.28 x10E3/uL 4.0-10.5 L [facility] RBC 2.12 x10E6/uL 4.20-5.40 L [facility] Hemoglobin 7.5 g/dL 12.0-16.0 L [facility] Hematocrit 23.2 % 37.0-47.0 L [facility] MCV 109.4 fL 81.0-99.0 H [facility] MCH 35.4 pg 27.0-31.0 H [facility] MCHC 32.3 g/dL 32.7-35.6 L [facility] RDW 16.8 % 11.5-14.0 H [facility] Platelet count 157 x10E3/uL 150-450 [facility] MPV 11.7 fl 6.9-9.5 H [facility] SEG. NEUTROPHIL 40 % 34-64 [facility] BAND 1 % 5-11 L [facility] LYMPHOCYTE 42 % 25-45 N [facility] EOSINOPHILS 10 % 0-7 H [facility] MONOCYTES 4 % 2-10 N [facility] BASOPHILS 2 % 0-2 N [facility] METAMYELOCYTES 1 % 0-2 [facility]+ ANISOCYTOSIS1+ OVALOCYTES1+ MACROCYTO SIS1+ HYPOCHROMICRBC MORPHOLOGY EXPECTED RESULTS: NORMAL = NORMOCHROMIC, NORMOCYTIC CELLSAny findings other than Normal will be reported and areconsidered Abnormal. The significance of Abnormalfindings are to be clinically correlated by the provider. ID Date Data Source [id number] 10/13/2020 12:52:00 PM EDT [facility] sylvia Name Value Range Interpretation Code Description Data Berkley rce(s) Supporting Document(s) [id number] TRANSFUSED PRODUCT: PACKED CELLS CO UNT: 3 [facility] ID Date Data Source [id number] 10/13/2020 12:52:00 PM EDT [facility] sylvia Comments to BBK: PT HAS NO HX, CBC AND R ETYPE ORDERED *Hgb < 8.0g/dL or Hct < 24% and PT Hemodynamically Unstable YIrradiated? NCMV Negative? NTransfuse 1units over 2UNIT NUMBER: [id number]: YPRODUCT: LEUKO REDUCED RED BLOOD CELLSSOURCE: [facility] TYPE: O NEGATIVEVOLUME: 313MLCROSSMATCH COMPONENTS:0UNIT NUMBER: [id number]: YPRODUCT: LEUKO REDUCED RED BLOOD CELLSSOURCE: [facility] TYPE: O NEGATIVEVOLUME: 400MLCROSSMATCH COMPONENTS:0UNIT NUMBER: [id number]: YPRODUCT: LEUKO REDUCED RED BLOOD CELLSSOURCE: [facility] TYPE: O NEGATIVEVOLUME: 301MLCROSSMATCH COMPONENTS:0 Name Value Range Interpretation Code Description Data Berkley rce(s) Supporting Document(s) ID Date Data Source [id number] 10/13/2020 12:52:00 PM EDT [facility] Comments to BBK: PT HAS NO HX, CBC AND R ETYPE ORDERED *Hgb < 8.0g/dL or Hct < 24% and PT Hemodynamically Unstable YIrradiated? NCMV Negative? NTransfuse 1units over 2 Name Value Range Interpretation Code Description Data Berkley rce(s) Supporting Document(s) BLOOD TYPE O NEGATIVE [facility] ANTIBODY SCREEN NEGATIVE N [facility] ID Date Data Source [id number] 10/10/2020 01:49:00 PM EDT [facility] Comments to BBK: PT HAS NO HX, CBC AND R ETYPE ORDERED Name Value Range Interpretation Code Description Data Berkley rce(s) Supporting Document(s) BLOOD TYPE O NEGATIVE [facility] ID Date Data Source [id number] 10/06/2020 07:14:00 AM EDT [facility] [address] [address] FOLLOW UP NOTENAME: ELIZABETH LAWRENCE CPHYSICIAN: MARLI RED, ROSANNAATE OF SERVICE: 10/05/20DATE OF : 31CCOUNT #: [id number]: ELIZABETH LAWRENCEDate: Oct 05OB: [birth year]hysician: Francisco [...] 05, 2020 flow cytometry no significant immunophenotypicabnormality [id number].July 19, 2020 hemoglobin 9.9 hematocrit 29.3 WBC 2.4 platelets 190differential neutrophils 49% lymphocytes 39% monocytes 7%Absolute neutrophilcount [id number].September 30, 2020 hemoglobin 7.2 hematocrit 23.1 WBC 4.8 platelets 146differential neutrophils 58% lymphocytes 25% monocytes 11% eosinophils 4%HISTORY OF PRESENT ILLNESSMrsSil Lawrence is a 78-year-old female who 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 She has a history of hypertension, arthritis,osteoporosis, and TIA. Found to have an elevated platelet count of 981k. OnDecember 25, 2013.She was admitted to [facility] on April 20, 2013 when shepresented with [...] 13 Mutations. Testing for MPL W515 and [id number] mutation was also negative. There was no [...] discussed the risks of possible breach ofhealth chief information officer while using technology. 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 Ms. 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 She is an active drinker.Ms. LAWRENCE reports no contact with [facility].Ms. LAWRENCE reports the following support systems: [...] thrombocytosis.#2. Hypertension.#3. History of stroke.#4. Use of qwwz-wat-idryiny supplementsPlan:#1. Essential thrombocytosis-Platelets on most recent CBC [...] rce(s) Supporting Document(s) ID Date Data Source [id number] 09/25/2020 01:18:12 PM EDT [facility] Name Value Range Interpretation Code Description Data Berkley rce(s) Supporting Document(s) &PDF [facility] CMDSGw3dPzSAPsGk87/FNUhqTBRvq3CnPNhkDOj0HVpcIWNxT4MnxNteLV0RP93LNZdYRRFDNV6NBY5h oRX [file] GsOABPTf/5+HxBV++f//air bag builder+801sHWFbF6W8VNa+LqV7BrFI/pFNJ0DUe+n//67nSPjQFLvoIH1nxV2Q [file] AgICAgICAgICAgICAgICAgICAgICAgICAgICAgICAg ICAgICAgICAgICAgICAgICAgICAgICAgICAgICAgICAgICAgICAgICAgICAgICAgICAgICAgICAgICAg ICANCiAgICAgICAgICAgICAgICAgICAgICAgICAgICAgICAgICAgICAgICAgICAgICAgICAgICAgICAg ICAgICAgICAgICAgICAgICAgICAgICAgICAgICAgIC AgICAgICAgICAgICANCiAgICAgICAgICAgICAgICAgICAgICAgICAgICAgICAgICAgICAgICAgICAgIC AgICAgICAgICAgICAgICAgICAgICAgICAgICAgICAgICAgICAgICAgICAgICAgICAgICAgICANCiAgIC AgICAgICAgICAgICAgICAgICAgICAgICAgICAgICAg ICAgICAgICAgICAgICAgICAgICAgICAgICAgICAgICAgICAgICAgICAgICAgICAgICAgICAgICAgICAg ICAgICANCiAgICAgICAgICAgICAgICAgICAgICAgICAgICAgICAgICAgICAgICAgICAgICAgICAgICAg ICAgICAgICAgICAgICAgICAgICAgICAgICAgICAgIC AgICAgICAgICAgICAgICANCiAgICAgICAgICAgICAgICAgICAgICAgICAgICAgICAgICAgICAgICAgIC AgICAgICAgICAgICAgICAgICAgICAgICAgICAgICAgICAgICAgICAgICAgICAgICAgICAgICAgICANCi AgICAgICAgICAgICAgICAgICAgICAgICAgICAgICAg ICAgICAgICAgICAgICAgICAgICAgICAgICAgICAgICAgICAgICAgICAgICAgICAgICAgICAgICAgICAg ICAgICAgICANCiAgICAgICAgICAgICAgICAgICAgICAgICAgICAgICAgICAgICAgICAgICAgICAgICAg ICAgICAgICAgICAgICAgICAgICAgICAgICAgICAgIC AgICAgICAgICAgICAgICAgICANCiAgICAgICAgICAgICAgICAgICAgICAgICAgICAgICAgICAgICAgIC AgICAgICAgICAgICAgICAgICAgICAgICAgICAgICAgICAgICAgICAgICAgICAgICAgICAgICAgICAgIC ANCiAgICAgICAgICAgICAgICAgICAgICAgICAgICAg ICAgICAgICAgICAgICAgICAgICAgICAgICAgICAgICAgICAgICAgICAgICAgICAgICAgICAgICAgICAg ICAgICAgICAgICANCjw/kRCvD5dngURwjzJ5R7mdWw4FQy1VLY2gn0GxNCZxPXadxoVwZynQXvKlSYLz OyzWGvo1RSdaPT7JdQIkU2PnI3ZmFNdcRP3LBMLiAA GeoMHoWFMhQIQeVyP9LMEhPHqqVK9YxGYiMRcfDGKlYGNwCnEqRJBnRNQgOOBaME3CIMGgU046arGqGj 8LPn1BLzBjIT4yep6GQqJnOROiEuvXBep1NLipUM7DiWGcB5NhjYAkr9qVMiVmX2VFEHHlOUDxDy4RUO WaNqNbUMYxUJjvWD3yUVWqLTWXwYzdhrX1HD4EMU8m eaVmBN6GZsBaOc1sXx3FNoVaZ7YbF0HcPDTmSWAXXMmyOU4BMGHaVGF5QMSxOHTfUJNXZvJrR59eNC9K H9Fhj88qXpL5ABMxPoMqDEzjOX68lPmtbpQhxTFwhGgrHD6IMj1+DQplbmRvYmoNCnhyZWYNCjAgMzYN CqKhXDLiBOZxEVQoHvI2GgImYl2EGTLuNGCoTTOvOe MhRAGzCIBcTCjhATFiRREmVGW9RXOrYJHtCG3YKwOwQMNgTpE1BIpbBKRkYRGvsh2YMNVgEXZaHJL5JS VqOGGiHMUnYNxxNTDwLVRgCLG8SKRcQWSyOA7ZPhKqYLCzSJZmDpDdBGLwNPMzkp0VLMXbBJLaJvRzGP CaZQRxSOHtKQzrYJUdBIB4XOC1LBFsQOAdXN2MLzKp UGOxOXp9HkMbKBAyMXAcik4TYHFzDWUgWQk8PPUqANIyRUFlULraPXCbEMUiHFA0LHFwIAMzND7DXtEc LQXuWESwBiLaBMFpIGEhap1CTIKeDHWxGMXfDUEzISJdGFYqRXudXGGiYPIuBmy3DVKxPSJoMR4IVhFt ZWMbVAA4DFYxGVClAGRmea6LIZIcXUMjWhH3GJYdPE OoVQWyKCruOWDbRZX3EVM4KLEfOBQvDK2ZYmZeYBVtLSf0VDKnMMAwPWAgfw6PPXIlRJXbSMM6AbHoUV UvKYEhFIwsLJTzZLR8ToncOTScFEQiWO2VWpZuSDBbPDv6LOXuAGPsGKRces8GFIDeBPUbDGN0LoTsZP MfIAZtVXwxTYEhIPP8ESK0KWYjZLMgUT7HKkXwDAJo YLu7UHQwRFYaUDBzeh3LTMWuUHOlWSM1MxPzVAZmTBDpVVtuHTLlZJEwPZP0CTPcRPUsAA8NWnDsFYZg MtAwKETiKKBqTSXxeq5SRBDzQXFvDFW3CeGvJCWaHVXlJUyxUBBzQGXaXdD5YCAeGNClFC9INbGwRHAx MnI4UjbmEIJiJRWigl6PVANgKUTnCuL3XKTkOPYbDN YtILrgDTBfWOKgMXV8JQFbVZLqPI8UTaAkIPBgTeZ6PCUwNDXuWSZxdm0YHVDiKPTyIxRvXDCeDDUaXO UqUUyyOLEpXOM0IiY1UYRiISUjGA2LQkHaETlbVZPXRfl8WOepF8h2DDXnXp4IC6Ezp8MsTmRdQMHJDG sqZX3wmtKoXLBjWo2GU6fJWlpmPNJ4EhDhXQQ9MjT2 GOP9ZPb1GGD9PKDgLQT2ZQZdYU8eLWP4KHqtVJGkWTQ6VuUpIPGjKLGfFTHmGAOaLxq7BXF7YeCfQR4W Lx4XUgL5FPG0rCUbZr6YIcJ9WZGNRgBrOE4BRFb= ID Date Data Source [id number] 07/28/2020 08:08:00 AM EDT [facility] GREGG Hatch [address] [address] FOLLOW UP NOTENAME: ELIZABETH LAWRENCE CPHYSICIAN: MARLI RED, ROSANNAATE OF SERVICE: 07/27/20DATE OF : [birth year]CCOUNT #: [id number]: ELIZABETH LAWRENCEDate: July 27OB: [birth year]Physician: Dayana OrdonezSSilAge: 84Note Title: Hematology Follow UpDiagnosis:Primary - [...] 05, 2020 flow cytometry no significant immunophenotypicabnormality akvhpuft41.July 19, 2020 hemoglobin 9.9 hematocrit 29.3 WBC 2.4 platelets 190differential neutrophils 49% lymphocytes 39% monocytes 7%Absolute neutrophilcount 1200HISTORY OF PRESENT ILLNESSMrsSil Lawrence is a 78-year-old female who 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 She has a history of hypertension, arthritis,osteoporosis, and TIA. Found to have an elevated platelet count of 981k. OnDecember 25, 2013.She was admitted to [facility] on April 20, 2013 when shepresented with [...] 13 Mutations. Testing for MPL W515 and [id number] mutation was also negative. 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 She is an [...] the night.Vital Signs:Performed on July 27, 2020 13:71Dckvcy56.00 naFjherv176.2 lbs(HIGH)BSA (derived)1.63 sq.mBMI26.99Sjfmimjqzav35.4 FYhcew47 /frfXnewiusaoup07 /zspMO046/80Pulse Oximetry (O2 Sat)97 %Pain Dqztrhwszy5Tkft RiskModerate fall riskPerformance Status:1 - No physically [...] thrombocytosis.#2. Hypertension.#3. History of stroke.#4. Use of brnw-ltv-ijbvipe supplementsPlan:#1. Essential thrombocytosis-July 19, 2020 hemoglobin 9.9 hematocrit 29.3 GEE061.3 WBC 2.4 platelets 198 differential neutrophils 49% lymphocytes 39%monocytes 7%.Continue anagrelide 0.5 milligrams 3 times daily. Platelet count is adequatelycontrolled.#2 anemia-Patient has worsening anemia with hemoglobin dropped from 10.3 9.9.In light of worsening leukopenia and neutropenia, discussed obtaining bonemarrow aspirate and biopsy but patient would like to defer this through thesummer and think about it again around November. Theref [facility] patient is beingscheduled for follow-up in November.3. [...] rce(s) Supporting Document(s) ID Date Data Source [id number] 07/19/2020 11:29:00 AM EDT [facility] Name Value Range Interpretation Code Description Data Berkley rce(s) Supporting Document(s) CBC W/AUTOMATED DIFF [facility] COMPLETE BLOOD COUNT Leukocytes [#/volume] in Blood by Automated count 2.4 10^3/uL 4.2 - 1 1.0 L [facility] Erythrocytes [#/volume] in Blood by Automated count 2.68 10^6/uL 4. 20 - 5.40 L [facility] Hemoglobin [Mass/volume] in Blood 9.9 g/dL 12.0 - 16.0 L [facility] Hematocrit [Volume Fraction] of Blood by Automated count 29.3 % 3 7.0 - 47.0 L [facility] Erythrocyte mean corpuscular volume [Entitic volume] b y Automated count 109.3 fL 81.0 - 101 H [facility] Erythrocyte mean corpuscular hemoglobin [Entitic mass] by Automated count 36.9 pg 27.0 - 34.0 H [facility] Erythrocyte mean corpuscular hemoglobin concentration [Mass/volume] by Automated count 33.8 g/dL 31.0 - 36.0 [facility] Erythrocyte distribution width [Ratio] by Automated count 14.6 % 11.5 - 14.5 H [facility] Platelets [#/volume] in Blood by Automated count 190 10^3/uL 150 - 45 0 [facility] Platelet mean volume [Entitic volume] in Blood by Automated count 11.8 fL 7.4 - 10.4 H [facility] Neutrophils/100 leukocytes in Blood by Automated count 48.6 % 37. 0 - 80.0 [facility] Lymphocytes/100 leukocytes in Blood by Manual count 38.7 % 25.0 - 40.0 [facility] Monocytes/100 leukocytes in Blood by Automated count 7.4 % 3.0 - 8.0 [facility] Eosinophils/100 leukocytes in Blood by Automated count 3.7 % 0.0 - 7.0 [facility] Basophils/100 leukocytes in Blood by Automated count 0.0 % 0.0 - 2.5 [facility] %IG 1.6 % 0.0 - 0.0 [facility] %NRBC 0.0 % 0.0 - 0.0 [facility] al Neutrophils [#/volume] in Blood by Automated count 1.18 10^3/uL 2.00 - 6.90 L [facility] Lymphocytes [#/volume] in Blood by Automated count 0.94 10^3/uL 0.60 - 3.40 [facility] Monocytes [#/volume] in Blood by Automated count 0.18 10^3/uL 0.00 - 0.90 [facility] Eosinophils [#/volume] in Blood by Automated count 0.09 10^3/uL 0.00 - 0.70 [facility] Basophils [#/volume] in Blood by Automated count 0.00 10^3/uL 0.00 - 0.20 [facility] #IG 0.04 10^3/uL 0.00 - 0.10 [facility] #NRBC 0.00 10^3/uL 0.00 - 0.00 [facility] ospital MANUAL DIFF SEE BELOW [facility] ital Segmented neutrophils/100 leukocytes in Blood by Manual count 48 % 37 - 80 [facility] %LYMPH 47 % 25 - 40 H [facility] al %MONO 2 % 3 - 8 L [facility] al %EOS 1 % 0 - 7 [facility] al RBC MORPH SEE BELOW [facility] al Anisocytosis [Presence] in Blood by Light microscopy 1+ MANA L: NONE SEEN A [facility] HYPO 1+ NORMAL: NONE SEEN A [facility] { SICKLE CELL (NORMAL: NONE SEEN ) Platelet adequacy [Presence] in Blood by Light microscopy NORMAL NORMAL: NORMAL [facility] COMMENT: ID Date Data Source [id number] 07/19/2020 10:43:00 AM EDT [facility] Name Value Range Interpretation Code Description Data Berkley rce(s) Supporting Document(s) COMPREHENSIVE METABOLIC PANEL [facility] COMPREHENSIVE METABOLIC PANEL Sodium [Moles/volume] in Serum or Plasma 140 mEq/L 134 - 153 [facility] Potassium [Moles/volume] in Serum or Plasma 4.6 mEq/L 3.6 - 5.0 [facility] Chloride [Moles/volume] in Serum or Plasma 104 mEq/L 98 - 107 [facility] Carbon dioxide, total [Moles/volume] in Serum or Plasma 29 MEQ/L 22 - 30 [facility] Glucose [Mass/volume] in Serum or Plasma 105 MG/DL 70 - 99 H [facility] BUN 23 MG/DL 7 - 21 [facility] Creatinine [Mass/volume] in Serum or Plasma 0.9 MG/DL 0.7 - 1.5 [facility] BUN/CREAT 26 8 - 27 [facility] al Protein [Mass/volume] in Serum or Plasma 6.7 G/DL 6.3 - 8.2 [facility] Albumin [Mass/volume] in Serum or Plasma 4.5 G/DL 3.9 - 5.0 [facility] Globulin [Mass/volume] in Serum by calculation 2.2 GM/DL 2.4 - 3.2 L [facility] A/G RATIO 2.0 0.8 - 2.0 [facility] al Calcium [Mass/volume] in Serum or Plasma 9.3 MG/DL 8.4 - 10.2 [facility] Bilirubin.total [Mass/volume] in Serum or Plasma <0.7 MG/DL 0.2 - 1.3 [facility] Alkaline phosphatase [Enzymatic activity/volume] in Serum or Plasma 56 U/L 38 - 126 [facility] Aspartate aminotransferase [Enzymatic activity/volume] in Serum or Plasma 11 U/L 5 - 40 [facility] Alanine aminotransferase [Enzymatic activity/volume] in Seru m or Plasma 9 U/L 7 - 56 [facility] Anion gap 3 in Serum or Plasma 7.0 mmol/L 8.0 - 16.0 L [facility]GE 84 [facility] >60 mL/min [facility] ital AFR AMER GFR >60 [facility] Male GFR In [...] >32 mL/min Normal ID Date Data Source [id number] 04/07/2020 04:12:00 PM EST [facility] Name Value Range Interpretation Code Description Data Berkley rce(s) Supporting Document(s) Pathologist interpretation of Unspecified specimen tests COMMENT [facility] No significant immunophenotypic abnormal ity detected Annotation comment [Interpretation] Narrative WILL FOLLOW [facility] Lab Case Number WILL FOLLOW [facility] Specimen source [Identifier] of Unspecified specimen COMMENT [facility] Peripheral blood Assessment of Leukocytes COMMENT [facility] No monoclonal B cell population is detec constantino. kappa:lambda ratio 2.0There is no loss of, or aberrant expression of, the mata T cell antigens tosuggest a neoplastic T cell process.CD4:CD8 ratio 1.2CD57 positive T cells are increased but are composed of a mixture of AY8cdviolwr cells and CD8 positive cells, most consistent with a reactiveprocess.Approximately 1% myeloblasts with normal phenotype are detected.There is no immunophenotypic evidence of abnormal myeloid maturation.Analysis of the leukocyte population shows: granulocytes 45%, monocytes 4%,lymphocytes 50%, blasts 1%, B cells 4%, T cells 30%, LGLs 19%, NK cells16%. Cellularity assessment [Interpretation] in Unspecified specimen by Flow cytometry (FC) Narrative WILL FOLLOW [facility] Viable cells/100 cells in Unspecified specimen COMMENT [facility] 92% Abnormal leukocytes/100 leukocytes in Un specified specimen by Flow cytometry (FC) WILL FOLLOW [facility] Analysis and [employer] COMMENT [facility] 8 color analysis with CD45/SSC Immunophenotyping study COMMENT [facility] CD2 Normal CD3 Mana lCD4 Normal CD5 NormalCD7 Normal CD8 WgkiwxXU14 Normal CD11b SbwtifPI92 Normal CD14 SytlfqQM69 Normal CD19 BhejqgBC57 Normal CD33 ReqvjlVJ13 Normal CD38 VjzcrzAZ51 Normal CD56 PkpumfRU57 Normal CD117 NormalHLA-DR Normal KAPPA NormalLAMBDA Normal CD64 Normal Pathologist name COMMENT [facility] Mishel Brumfield M.D.WILL FOLLOWMAMI Wade Reason for referral (narrative) WILL FOLLOW [facility] Clinical information COMMENT [facility] A recent CBC has been reviewed in prepar ing this report.It shows anemia. Laboratory comment [Text] in Report Narrative COMMENT [facility] Each antibody in this assay was utilized [...] or for research. ID Date Data Source [id number] 04/02/2020 01:37:00 PM [facility] GREGG H[place] [address] [address] FOLLOW UP NOTENAME: ELIZABETH LAWRENCE CPHYSICIAN: ROSANNA ORDONEZATE OF SERVICE: 03/31/20DATE OF : [birth year]CCOUNT #: [id number]: ELIZABETH LAWRENCEDate: Mar 31OB: [birth year]hysician: Francisco [...] 981k. OnDecember 25, 2013.She was admitted to [facility] on April 20, 2013 when shepresented with [...] 13 Mutations. Testing for MPL W515 and [id number] mutation was also negative. There was no [...] discussed the risks of possible breach ofhealth chief information officer while using technology. 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 Ms. 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 She is an active drinker.Ms. LAWRENCE reports no contact with [facility].Ms. LAWRENCE reports the following support systems: [...] thrombocytosis.#2. Hypertension.#3. History of stroke.#4. Use of yqyq-poz-afvzclz supplementsPlan:#1. 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 Platelet count is adequatelycontrolled.#2 anemia-February 10, 2020 hemoglobin 11.2 hematocrit 33.4 WBC 2.9 [id number] differential neutrophils 33% lymphocytes 50% atypical lymphocytes [...] this time.Electronically signed by:Marli PennvaCC:Dr. Alber Bowden [place] Name Value Range Interpretation Code Description Data Berkley rce(s) Supporting Document(s) ID Date Data Source [id number] 03/24/2020 12:13:00 PM [facility] Name Value Range Interpretation Code Description Data Berkley rce(s) Supporting Document(s) COMPREHENSIVE METABOLIC PANEL [facility] COMPREHENSIVE METABOLIC PANEL Sodium [Moles/volume] in Serum or Plasma 137 mEq/L 134 - 153 [facility] Potassium [Moles/volume] in Serum or Plasma 4.4 mEq/L 3.6 - 5.0 [facility] Chloride [Moles/volume] in Serum or Plasma 100 mEq/L 98 - 107 [facility] Carbon dioxide, total [Moles/volume] in Serum or Plasma 30 MEQ/L 22 - 30 [facility] Glucose [Mass/volume] in Serum or Plasma 98 MG/DL 65 - 110 [facility] BUN 26 MG/DL 7 - 21 [facility] Creatinine [Mass/volume] in Serum or Plasma 1.0 MG/DL 0.7 - 1.5 [facility] BUN/CREAT 26 8 - 27 [facility] Protein [Mass/volume] in Serum or Plasma 6.3 G/DL 6.3 - 8.2 [facility] Albumin [Mass/volume] in Serum or Plasma 4.4 G/DL 3.9 - 5.0 [facility] Globulin [Mass/volume] in Serum by calculation 1.9 GM/DL 2.4 - 3.2 L [facility] A/G RATIO 2.3 0.8 - 2.0 H [facility] Calcium [Mass/volume] in Serum or Plasma 9.0 MG/DL 8.4 - 10.2 [facility] Bilirubin.total [Mass/volume] in Serum or Plasma <0.7 MG/DL 0.2 - 1.3 [facility] Alkaline phosphatase [Enzymatic activity/volume] in Serum or Plasma 57 U/L 38 - 126 [facility] Aspartate aminotransferase [Enzymatic activity/volume] in Serum or Plasma 10 U/L 5 - 40 [facility] Alanine aminotransferase [Enzymatic activity/volume] in Seru m or Plasma 6 U/L 7 - 56 L [facility] Anion gap 3 in Serum or Plasma 7.0 mmol/L 8.0 - 16.0 L [facility] AGE 84 yrs [facility] NON-AA GFR 56 mL/min [facility] sylvia AFR AMER GFR >60 [facility] Male GFR In [...] >32 mL/min Normal ID Date Data Source [id number] 03/24/2020 11:30:00 AM EST [facility] Name Value Range Interpretation Code Description Data Berkley rce(s) Supporting Document(s) CBC W/AUTOMATED DIFF [facility] COMPLETE BLOOD COUNT Leukocytes [#/volume] in Blood by Automated count 2.9 10^3/uL 4.2 - 1 1.0 L [facility] Erythrocytes [#/volume] in Blood by Automated count 2.96 10^6/uL 4. 20 - 5.40 L [facility] Hemoglobin [Mass/volume] in Blood 10.3 g/dL 12.0 - 16.0 L [facility] Hematocrit [Volume Fraction] of Blood by Automated count 30.8 % 3 7.0 - 47.0 L [facility] Erythrocyte mean corpuscular volume [Entitic volume] b y Automated count 104.1 fL 81.0 - 101 H [facility] Erythrocyte mean corpuscular hemoglobin [Entitic mass] by Automated count 34.8 pg 27.0 - 34.0 H [facility] Erythrocyte mean corpuscular hemoglobin concentration [Mass/volume] by Automated count 33.4 g/dL 31.0 - 36.0 [facility] Erythrocyte distribution width [Ratio] by Automated count 15.1 % 11.5 - 14.5 H [facility] Platelets [#/volume] in Blood by Automated count 274 10^3/uL 150 - 45 0 [facility] Platelet mean volume [Entitic volume] in Blood by Automated count 11.2 fL 7.4 - 10.4 H [facility] Neutrophils/100 leukocytes in Blood by Automated count 41.4 % 37. 0 - 80.0 [facility] Lymphocytes/100 leukocytes in Blood by Manual count 44.7 % 25.0 - 40.0 H [facility] Monocytes/100 leukocytes in Blood by Automated count 7.8 % 3.0 - 8.0 [facility] Eosinophils/100 leukocytes in Blood by Automated count 4.4 % 0.0 - 7.0 [facility] Basophils/100 leukocytes in Blood by Automated count 0.3 % 0.0 - 2.5 [facility] %IG 1.4 % 0.0 - 0.0 H [facility] %NRBC 0.0 % 0.0 - 0.0 [facility] Neutrophils [#/volume] in Blood by Automated count 1.21 10^3/uL 2.00 - 6.90 L [facility] Lymphocytes [#/volume] in Blood by Automated count 1.31 10^3/uL 0.60 - 3.40 [facility] Monocytes [#/volume] in Blood by Automated count 0.23 10^3/uL 0.00 - 0.90 [facility] Eosinophils [#/volume] in Blood by Automated count 0.13 10^3/uL 0.00 - 0.70 [facility] Basophils [#/volume] in Blood by Automated count 0.01 10^3/uL 0.00 - 0.20 [facility] #IG 0.04 10^3/uL 0.00 - 0.10 [facility] #NRBC 0.00 10^3/uL 0.00 - 0.00 [facility] ospital MANUAL DIFF SEE BELOW [facility] Segmented neutrophils/100 leukocytes in Blood by Manual count 42 % 37 - 80 [facility] %LYMPH 48 % 25 - 40 H [facility] %MONO 4 % 3 - 8 [facility] %EOS 6 % 0 - 7 [facility] RBC MORPH NOT INDICATED [facility] ID Date Data Source [id number] 02/20/2020 11:40:00 AM EST [facility] [address] [address] FOLLOW UP NOTENAME: ELIZABETH LAWRENCE CPHYSICIAN: ROSANNA ORDONEZATE OF SERVICE: 02/19/20DATE OF : [birth year]CCOUNT #: [id number]: ELIZABETH LAWRENCEDate: Feb 19, 2020DOB: [birth year]hysician: [...] 981k. OnDecember 25, 2013.She was admitted to [facility] on April 20, 2013 when shepresented with [...] 13 Mutations. Testing for MPL W515 and [id number] mutation was also negative. There was no [...] discussed the risks of possible breach ofhealth chief information officer while using technology. 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 She is an active drinker.Ms. LAWRENCE [facility]Ms. LAWRENCE reports the following support systems: [...] thrombocytosis.#2. Hypertension.#3. History of stroke.#4. Use of jxze-ewg-engdtlb supplementsPlan:#1. 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 Platelet count is adequatelycontrolled.#2 anemia- February 10, 2020 hemoglobin 11.2 hematocrit 33.4 WBC 2.9 [id number] differential neutrophils 33% lymphocytes 50% atypical lymphocytes [...] rce(s) Supporting Document(s) ID Date Data Source [id number] 02/19/2020 07:04:00 PM [facility] Name Value Range Interpretation Code Description Data Berkley rce(s) Supporting Document(s) LAB - SPECIMEN REJECTION [facility] Specimen Integrity/Specimen Recollection The patient sample needs to be resubmitted for the following reason: Test(s) Ordered LEUKEMIA/LYMPHOMA [facility] Rejection Reason Sample Compromised [facility] { One or more of the tests you ordered cannot be performed.{ Please recollect, reorder, and resubmit if needed. ID Date Data Source [id number] 02/16/2020 01:03:00 PM [facility] Name Value Range Interpretation Code Description Data Berkley rce(s) Supporting Document(s) PT/PTT [facility] APPENDED REPORT Prothrombin time (PT) 14.2 SECONDS 11.0 - 15.5 [facility] INR in Platelet poor plasma by Coagulation assay 1.05 0.93 - 1. 23 [facility] \\BLDo\\INR INTERPRETATION\\BLDx\\ Therapeutic range for Coumadin and related oral anticoagulants. - International Normalized Ratio (INR): 2.0 - 3.0 for Venous Thrombosis, Pulmonary Embolus, Tissue heart valves, Acute [place] Atrial Fibrillation, Valvular heart disease and recurrent Systemic Embolism. - International Normalized Ratio (INR): 2.5 - 3.5 for Mechanical Prosthetic valve. aPTT in Blood by Coagulation assay 36.7 SECONDS 24.8 - 36.7 [facility] Therapeutic range for Coumadin and related oral anticoagulants. -International Normalized Ratio (INR): 2.0 - 3.0 for Venous Thrombosis, Pulmonary Embolus, Tissue heart valves, Acute [place] Atrial Fibrillation, Valvular heart disease and recurrent Systemic Embolism. -International Normalized Ratio (INR): 2.5 - 3.5 for Mechanical Prosthetic valve. 02/15/20.1105.TAD.COMPLETE 02/15/20.1105.TAD.to PIERO via fax 02/16/20.1106. .REVIEWED ID Date Data Source [id number] 02/15/2020 01:35:00 PM [facility] Name Value Range Interpretation Code Description Data Berkley rce(s) Supporting Document(s) PFA [facility] _PLATELET FUNCTION ASSAY_ TEST [place] [address] CLIA # [id number] SEE SCANNED REPORT ID Date Data Source [id number] 02/15/2020 12:28:00 PM [facility] Name Value Range Interpretation Code Description Data Berkley rce(s) Supporting Document(s) CBC W/AUTOMATED DIFF [facility] COMPLETE BLOOD COUNT Leukocytes [#/volume] in Blood by Automated count 2.6 10^3/uL 4.2 - 1 1.0 L [facility] Erythrocytes [#/volume] in Blood by Automated count 3.18 10^6/uL 4. 20 - 5.40 L [facility] Hemoglobin [Mass/volume] in Blood 11.0 g/dL 12.0 - 16.0 L [facility] Hematocrit [Volume Fraction] of Blood by Automated count 32.9 % 3 7.0 - 47.0 L [facility] Erythrocyte mean corpuscular volume [Entitic volume] b y Automated count 103.5 fL 81.0 - 101 H [facility] Erythrocyte mean corpuscular hemoglobin [Entitic mass] by Automated count 34.6 pg 27.0 - 34.0 H [facility] Erythrocyte mean corpuscular hemoglobin concentration [Mass/volume] by Automated count 33.4 g/dL 31.0 - 36.0 [facility] Erythrocyte distribution width [Ratio] by Automated count 14.9 % 11.5 - 14.5 H [facility] Platelets [#/volume] in Blood by Automated count 275 10^3/uL 150 - 45 0 [facility] Platelet mean volume [Entitic volume] in Blood by Automated count 10.9 fL 7.4 - 10.4 H [facility] Neutrophils/100 leukocytes in Blood by Automated count 42.9 % 37. 0 - 80.0 [facility] Lymphocytes/100 leukocytes in Blood by Manual count 44.8 % 25.0 - 40.0 H [facility] Monocytes/100 leukocytes in Blood by Automated count 7.3 % 3.0 - 8.0 [facility] Eosinophils/100 leukocytes in Blood by Automated count 4.2 % 0.0 - 7.0 [facility] Basophils/100 leukocytes in Blood by Automated count 0.4 % 0.0 - 2.5 [facility] %IG 0.4 % 0.0 - 0.0 [facility] %[facility] 0.0 % 0.0 - 0.0 [facility] al Neutrophils [#/volume] in Blood by Automated count 1.11 10^3/uL 2.00 - 6.90 L [facility] Lymphocytes [#/volume] in Blood by Automated count 1.16 10^3/uL 0.60 - 3.40 [facility] Monocytes [#/volume] in Blood by Automated count 0.19 10^3/uL 0.00 - 0.90 [facility] Eosinophils [#/volume] in Blood by Automated count 0.11 10^3/uL 0.00 - 0.70 [facility] Basophils [#/volume] in Blood by Automated count 0.01 10^3/uL 0.00 - 0.20 [facility] #IG 0.01 10^3/uL 0.00 - 0.10 [facility] #NRBC 0.00 10^3/uL 0.00 - 0.00 [facility] MANUAL DIFF SEE BELOW [facility] Segmented neutrophils/100 leukocytes in Blood by Manual count 39 % 37 - 80 [facility] BAND 2 % 0 - 5 [facility] %LYMPH 46 % 25 - 40 H [facility] %MONO 2 % 3 - 8 L [facility] %EOS 5 % 0 - 7 [facility] GIANCARLO LYM 6 % [facility] RBC MORPH SEE BELOW [facility] Anisocytosis [Presence] in Blood by Light microscopy 1+ MANA L: NONE SEEN A [facility] Macrocytes [Presence] in Blood by Light microscopy 1+ NORMAL: NONE SEEN A [facility] { SICKLE CELL (NORMAL: NONE SEEN ) Platelet adequacy [Presence] in Blood by Light microscopy NORMAL NORMAL: NORMAL [facility] COMMENT: _[email or web address]_PLATELETS_OBSER VED 02/15/20.1228.TAD. ID Date Data Source [id number] 02/15/2020 11:07:00 AM [facility] Name Value Range Interpretation Code Description Data Berkley rce(s) Supporting Document(s) Fibrin D-dimer FEU [Mass/volume] in Platelet poor plasma 0.65 ug /mL 0.27 - 0.50 H [facility] ID Date Data Source [id number] 02/15/2020 11:07:00 AM [facility] Name Value Range Interpretation Code Description Data Berkley rce(s) Supporting Document(s) Fibrinogen [Mass/volume] in Platelet poor plasma by Co agulation assay 298.0 mg/dL 179 - 506 [facility] ID Date Data Source [id number] 02/11/2020 11:18:00 AM [facility] Name Value Range Interpretation Code Description Data Berkley rce(s) Supporting Document(s) COMPREHENSIVE METABOLIC PANEL [facility] COMPREHENSIVE METABOLIC PANEL Sodium [Moles/volume] in Serum or Plasma 141 mEq/L 134 - 153 [facility] Potassium [Moles/volume] in Serum or Plasma 4.7 mEq/L 3.6 - 5.0 [facility] Chloride [Moles/volume] in Serum or Plasma 106 mEq/L 98 - 107 [facility] Carbon dioxide, total [Moles/volume] in Serum or Plasma 30 MEQ/L 22 - 30 [facility] Glucose [Mass/volume] in Serum or Plasma 103 MG/DL 65 - 110 [facility] BUN 22 MG/DL 7 - 21 [facility] Creatinine [Mass/volume] in Serum or Plasma 1.0 MG/DL 0.7 - 1.5 [facility] BUN/CREAT 22 8 - 27 [facility] Protein [Mass/volume] in Serum or Plasma 6.3 G/DL 6.3 - 8.2 [facility] Albumin [Mass/volume] in Serum or Plasma 4.5 G/DL 3.9 - 5.0 [facility] Globulin [Mass/volume] in Serum by calculation 1.8 GM/DL 2.4 - 3.2 L [facility] A/G RATIO 2.5 0.8 - 2.0 H [facility] Calcium [Mass/volume] in Serum or Plasma 9.6 MG/DL 8.4 - 10.2 [facility] Bilirubin.total [Mass/volume] in Serum or Plasma <0.7 MG/DL 0.2 - 1.3 [facility] Alkaline phosphatase [Enzymatic activity/volume] in Serum or Plasma 56 U/L 38 - 126 [facility] Aspartate aminotransferase [Enzymatic activity/volume] in Serum or Plasma 11 U/L 5 - 40 [facility] Alanine aminotransferase [Enzymatic activity/volume] in Seru m or Plasma 7 U/L 7 - 56 [facility] Anion gap 3 in Serum or Plasma 5.0 mmol/L 8.0 - 16.0 L [facility] AGE 84 yrs [facility] NON-AA GFR 56 mL/min [facility] sylvia AFR AMER GFR >60 [facility] Male GFR In [...] >32 mL/min Normal ID Date Data Source [id number] 02/11/2020 10:46:00 AM EST [facility] Name Value Range Interpretation Code Description Data Berkley rce(s) Supporting Document(s) CBC W/AUTOMATED DIFF [facility] COMPLETE BLOOD COUNT Leukocytes [#/volume] in Blood by Automated count 2.7 10^3/uL 4.2 - 1 1.0 L [facility] Erythrocytes [#/volume] in Blood by Automated count 3.19 10^6/uL 4. 20 - 5.40 L [facility] Hemoglobin [Mass/volume] in Blood 10.9 g/dL 12.0 - 16.0 L [facility] Hematocrit [Volume Fraction] of Blood by Automated count 33.1 % 3 7.0 - 47.0 L [facility] Erythrocyte mean corpuscular volume [Entitic volume] b y Automated count 103.8 fL 81.0 - 101 H [facility] Erythrocyte mean corpuscular hemoglobin [Entitic mass] by Automated count 34.2 pg 27.0 - 34.0 H [facility] Erythrocyte mean corpuscular hemoglobin concentration [Mass/volume] by Automated count 32.9 g/dL 31.0 - 36.0 [facility] Erythrocyte distribution width [Ratio] by Automated count 14.8 % 11.5 - 14.5 H [facility] Platelets [#/volume] in Blood by Automated count 342 10^3/uL 150 - 45 0 [facility] Platelet mean volume [Entitic volume] in Blood by Automated count 10.4 fL 7.4 - 10.4 [facility] Neutrophils/100 leukocytes in Blood by Automated count 40.0 % 37. 0 - 80.0 [facility] Lymphocytes/100 leukocytes in Blood by Manual count 44.5 % 25.0 - 40.0 H [facility] Monocytes/100 leukocytes in Blood by Automated count 7.5 % 3.0 - 8.0 [facility] Eosinophils/100 leukocytes in Blood by Automated count 7.2 % 0.0 - 7.0 H [facility] Basophils/100 leukocytes in Blood by Automated count 0.4 % 0.0 - 2.5 [facility] %IG 0.4 % 0.0 - 0.0 H [facility] al %NRBC 0.0 % 0.0 - 0.0 [facility] al Neutrophils [#/volume] in Blood by Automated count 1.06 10^3/uL 2.00 - 6.90 L [facility] Lymphocytes [#/volume] in Blood by Automated count 1.18 10^3/uL 0.60 - 3.40 [facility] Monocytes [#/volume] in Blood by Automated count 0.20 10^3/uL 0.00 - 0.90 [facility] Eosinophils [#/volume] in Blood by Automated count 0.19 10^3/uL 0.00 - 0.70 [facility] Basophils [#/volume] in Blood by Automated count 0.01 10^3/uL 0.00 - 0.20 [facility] #IG 0.01 10^3/uL 0.00 - 0.10 [facility] #NRBC 0.00 10^3/uL 0.00 - 0.00 [facility] MANUAL DIFF SEE BELOW [facility] Segmented neutrophils/100 leukocytes in Blood by Manual count 43 % 37 - 80 [facility] %LYMPH 46 % 25 - 40 H [facility] %MONO 7 % 3 - 8 [facility] %EOS 4 % 0 - 7 [facility] RBC MORPH SEE BELOW [facility] { SICKLE CELL 0 (NORMAL: NONE SEEN ) Platelet adequacy [Presence] in Blood by Light microscopy NORMAL NORMAL: NORMAL [facility] COMMENT: _FEW_GIANT_PLATELETS 02/11/20.1046.CLD. ID Date Data Source [id number] 02/10/2020 11:17:00 AM EST [facility] Name Value Range Interpretation Code Description Data Berkley rce(s) Supporting Document(s) COMPREHENSIVE METABOLIC PANEL [facility] COMPREHENSIVE METABOLIC PANEL Sodium [Moles/volume] in Serum or Plasma 138 mEq/L 134 - 153 [facility] Potassium [Moles/volume] in Serum or Plasma 4.8 mEq/L 3.6 - 5.0 [facility] Chloride [Moles/volume] in Serum or Plasma 103 mEq/L 98 - 107 [facility] Carbon dioxide, total [Moles/volume] in Serum or Plasma 30 MEQ/L 22 - 30 [facility] Glucose [Mass/volume] in Serum or Plasma 103 MG/DL 65 - 110 [facility] BUN 26 MG/DL 7 - 21 [facility] Creatinine [Mass/volume] in Serum or Plasma 1.1 MG/DL 0.7 - 1.5 [facility] BUN/CREAT 24 8 - 27 [facility] Protein [Mass/volume] in Serum or Plasma 6.4 G/DL 6.3 - 8.2 [facility] Albumin [Mass/volume] in Serum or Plasma 4.5 G/DL 3.9 - 5.0 [facility] Globulin [Mass/volume] in Serum by calculation 1.9 GM/DL 2.4 - 3.2 L [facility] A/G RATIO 2.4 0.8 - 2.0 H [facility] Calcium [Mass/volume] in Serum or Plasma 9.5 MG/DL 8.4 - 10.2 [facility] Bilirubin.total [Mass/volume] in Serum or Plasma <0.7 MG/DL 0.2 - 1.3 [facility] Alkaline phosphatase [Enzymatic activity/volume] in Serum or Plasma 55 U/L 38 - 126 [facility] Aspartate aminotransferase [Enzymatic activity/volume] in Serum or Plasma 12 U/L 5 - 40 [facility] Alanine aminotransferase [Enzymatic activity/volume] in Seru m or Plasma 8 U/L 7 - 56 [facility] Anion gap 3 in Serum or Plasma 5.0 mmol/L 8.0 - 16.0 L [facility] AGE 84 yrs [facility] NON-AA GFR 50 mL/min [facility] AFR AMER GFR >60 [facility] Male GFR In [...] >32 mL/min Normal ID Date Data Source [id number] 02/10/2020 11:10:00 AM EST [facility] Name Value Range Interpretation Code Description Data Berkley rce(s) Supporting Document(s) CBC W/AUTOMATED DIFF [facility] CORRECTE D REPORT COMPLETE BLOOD COUNT Leukocytes [#/volume] in Blood by Automated count 2.9 10^3/uL 4.2 - 1 1.0 L [facility] Erythrocytes [#/volume] in Blood by Automated count 3.25 10^6/uL 4. 20 - 5.40 L [facility] Hemoglobin [Mass/volume] in Blood 11.2 g/dL 12.0 - 16.0 L [facility] Hematocrit [Volume Fraction] of Blood by Automated count 33.4 % 3 7.0 - 47.0 L [facility] Erythrocyte mean corpuscular volume [Entitic volume] b y Automated count 102.8 fL 81.0 - 101 H [facility] Erythrocyte mean corpuscular hemoglobin [Entitic mass] by Automated count 34.5 pg 27.0 - 34.0 H [facility] Erythrocyte mean corpuscular hemoglobin concentration [Mass/volume] by Automated count 33.5 g/dL 31.0 - 36.0 [facility] Erythrocyte distribution width [Ratio] by Automated count 14.7 % 11.5 - 14.5 H [facility] Platelets [#/volume] in Blood by Automated count 346 10^3/uL 150 - 45 0 [facility] Platelet mean volume [Entitic volume] in Blood by Automated count 10.6 fL 7.4 - 10.4 H [facility] Neutrophils/100 leukocytes in Blood by Automated count 39.9 % 37. 0 - 80.0 [facility] Lymphocytes/100 leukocytes in Blood by Manual count 46.7 % 25.0 - 40.0 H [facility] Monocytes/100 leukocytes in Blood by Automated count 6.9 % 3.0 - 8.0 [facility] Eosinophils/100 leukocytes in Blood by Automated count 5.5 % 0.0 - 7.0 [facility] Basophils/100 leukocytes in Blood by Automated count 0.7 % 0.0 - 2.5 [facility] %IG 0.3 % 0.0 - 0.0 [facility] %NRBC 0.0 % 0.0 - 0.0 [facility] Neutrophils [#/volume] in Blood by Automated count 1.15 10^3/uL 2.00 - 6.90 L [facility] Lymphocytes [#/volume] in Blood by Automated count 1.35 10^3/uL 0.60 - 3.40 [facility] Monocytes [#/volume] in Blood by Automated count 0.20 10^3/uL 0.00 - 0.90 [facility] Eosinophils [#/volume] in Blood by Automated count 0.16 10^3/uL 0.00 - 0.70 [facility] Basophils [#/volume] in Blood by Automated count 0.02 10^3/uL 0.00 - 0.20 [facility] #IG 0.01 10^3/uL 0.00 - 0.10 [facility] #NRBC 0.00 10^3/uL 0.00 - 0.00 [facility]spital MANUAL DIFF SEE BELOW [facility] Segmented neutrophils/100 leukocytes in Blood by Manual count 33 % 37 - 80 L [facility] %LYMPH 50 % 25 - 40 H [facility] %MONO 4 % 3 - 8 [facility] %EOS 6 % 0 - 7 [facility] Blasts/100 leukocytes in Blood by Manual count 0 % [facility] GIANCARLO LYM 7 % [facility] Nucleated erythrocytes/100 erythrocytes in Blood by Manual count 0 % [facility] RBC MORPH NOT INDICATED [facility] FOLLOWING RESULTS REPORTED IN ERROR MANUAL DIFF { CORRECT BLASTS NRBC { CORRECT Procedure Social History Code Duration Value Status Description Data Source(s ) Alcohol intake 12/22/2020 12:00:00 AM EDT Current drinker of al cohol (finding) completed Current drinker of alcohol (finding) [facility] Alcohol intake 12/16/2020 12:00:00 AM EDT Current drinker of al cohol (finding) completed Current drinker of alcohol (finding) [facility] Smoking 12/06/2020 12:00:00 AM EDT Never Smoker completed Never S moker eCW1 ([facility]) Alcohol intake 11/22/2020 12:00:00 AM EDT Current drinker of al cohol (finding) completed Current drinker of alcohol (finding) [facility] Alcohol intake 11/21/2020 12:00:00 AM EDT Current drinker of al cohol (finding) completed Current drinker of alcohol (finding) [facility] Tobacco use and exposure 10/26/2020 12:00:00 AM EDT Never used co mpleted Never used [facility] Smoking 10/26/2020 12:00:00 AM EDT Never smoker completed Never s moker [facility] Alcohol intake 10/26/2020 12:00:00 AM EDT Current drinker of al cohol (finding) completed Current drinker of alcohol (finding) [facility] Alcohol intake 07/13/2020 12:00:00 AM EDT Current drinker of al cohol (finding) completed Current drinker of alcohol (finding) [facility] Vital Signs ID Date Data Source UNK Name Value Range Interpretation Code Description Data Source(s) Systolic blood pressure 139 mm[Hg] 139 mm[Hg] [facility] Diastolic blood pressure 90 mm[Hg] 90 mm[Hg] [facility] Heart rate 97 /min 97 /min [facility] Body temperature 36.94 Halie 36.94 Halie [facility] Respiratory rate 16 /min 16 /min [facility] Oxygen saturation in Arterial blood by Pulse oximetry 96 % 96 % [facility] Body weight 60.555 kg 60.555 kg [facility] Body mass index (BMI) [Ratio] 22.22 kg/m2 22.22 kg/m2 [facility] Body height 165.1 cm 165.1 cm [facility] Systolic blood pressure 110 mm[Hg] 110 mm[Hg] [facility] Diastolic blood pressure 55 mm[Hg] 55 mm[Hg] [facility] Heart rate 100 /min 100 /min [facility] Body height 165.1 cm 165.1 cm [facility] Body weight 61.281 kg 61.281 kg [facility] Body mass index (BMI) [Ratio] 22.48 kg/m2 22.48 kg/m2 [facility] Oxygen saturation in Arterial blood by Pulse oximetry 96 % 96 % [facility] Body height 60 [in_i] 60 [in_i] [facility] ([facility], ) 5'0" Body weight 134.00 [lb_av] 134.00 [lb_av] [facility] T ([facility], ) Body mass index (BMI) [Ratio] 26.2 kg/m2 26.2 k g/m2 [facility] ([facility], ) [place] body weight 100 [lb_av] 100 [lb_av] MEDEN T ([facility], ) Body weight 60.782 kg 60.782 kg [facility] ([facility], ) Body surface area Derived from formula 1.57 m2 1.57 m2 [facility] ([facility], ) Systolic blood pressure 116 mm[Hg] 116 mm[Hg] M [facility]ENT ([facility], ) Diastolic blood pressure 68 mm[Hg] 68 mm[Hg] [facility] ([facility], ) Body temperature 98.4 [degF] 98.4 [degF] [facility] ([facility], ) Systolic blood pressure 110 mm[Hg] 110 mm[Hg] [facility] Diastolic blood pressure 60 mm[Hg] 60 mm[Hg] [facility] Heart rate 92 /min 92 /min [facility] Body height 152.4 cm 152.4 cm [facility] Body weight 58.06 kg 58.06 kg [facility] Body mass index (BMI) [Ratio] 25.00 kg/m2 25.00 kg/m2 [facility] Oxygen saturation in Arterial blood by Pulse oximetry 96 % 96 % [facility] Systolic blood pressure 132 mm[Hg] 132 mm[Hg] [facility] Diastolic blood pressure 72 mm[Hg] 72 mm[Hg] [facility] Heart rate 87 /min 87 /min [facility] Body temperature 36.61 Halie 36.61 Halie [facility] Respiratory rate 16 /min 16 /min [facility] Oxygen saturation in Arterial blood by Pulse oximetry 95 % 95 % [facility] Body height 152.4 cm 152.4 cm [facility] Body weight 59.3 kg 59.3 kg [facility] Body mass index (BMI) [Ratio] 25.53 kg/m2 25.53 kg/m2 [facility] Systolic blood pressure 118 mm[Hg] 118 mm[Hg] [facility] Diastolic blood pressure 64 mm[Hg] 64 mm[Hg] [facility] Heart rate 99 /min 99 /min [facility] Body height 12.7 cm 12.7 cm [facility] Body weight 59.421 kg 59.421 kg [facility] Body mass index (BMI) [Ratio] 3684.12 kg/m2 368 4.12 kg/m2 [facility] Oxygen saturation in Arterial blood by Pulse oximetry 98 % 98 % [facility] Systolic blood pressure 120 mm[Hg] 120 mm[Hg] [facility] Diastolic blood pressure 70 mm[Hg] 70 mm[Hg] [facility] Heart rate 82 /min 82 /min [facility] Body height 152.4 cm 152.4 cm [facility] Body weight 63.05 kg 63.05 kg [facility] Body mass index (BMI) [Ratio] 27.15 kg/m2 27.15 kg/m2 [facility] Oxygen saturation in Arterial blood by Pulse oximetry 93 % 93 % [facility] Patient Treatment Plan of Care Planned Activity Planned Date Details Description Data Source (s) Bisacodyl 10 MG Rectal Suppository 12/24/2020 09:00:00 AM EDT [facility] POLYETHYLENE GLYCOL 3350 142 MG/ML Oral Solution 12/23/2020 07:00:0 0 AM EDT [facility] clopidogrel 75 MG Oral Tablet 12/23/2020 12:00:00 AM EDT [facility] Docusate Sodium 100 MG Oral Capsule 12/22/2020 09:00:00 AM EDT [facility] Amoxicillin 500 MG Oral Capsule 12/22/2020 12:00:00 AM EDT [facility] ondansetron (ZOFRAN) injection 4 mg 2020 06:20:43 PM EDT [facility] 2 ML Metoclopramide 5 MG/ML Prefilled Syringe 2020 06:20:43 P M EDT [facility] 10 ML Atropine Sulfate 0.1 MG/ML Prefilled Syringe 2020 06 :20:42 PM EDT [facility] Metronidazole 0.0075 MG/MG Topical Gel 2020 04:00:00 PM EDT [facility] lidocaine (ASPERCREME) 4 % 1 patch 2020 03:33:22 PM EDT [facility] Metronidazole 7.5 MG/ML Topical Cream 12/06/2020 12:00:00 AM EDT eCW1 ([facility]) Minocycline 100 MG Oral Capsule 12/06/2020 12:00:00 AM EDT eCW1 ([facility]) normal saline flush 0.9 % injection 3 mL 11/21/2020 03:00:00 PM EDT [facility] normal saline flush 0.9 % injection 3 mL 11/21/2020 02:00:00 PM EDT [facility] normal saline flush 0.9 % injection 3 mL 11/21/2020 02:00:00 PM EDT [facility] Furosemide 20 MG Oral Tablet 10/03/2020 12:00:00 AM EDT [facility] 24 HR metoprolol succinate 50 MG Extended Release Oral Tablet 10/05/2019 12:00:00 AM EDT [facility] Isosorbide Dinitrate 20 MG Oral Tablet 10/02/2019 12:00:00 AM EDT [facility] Cyclosporine 0.5 MG/ML Ophthalmic Suspension [Restasis ] 07/07/2019 12:00:00 AM EDT [facility] Hydrochlorothiazide 25 MG Oral Tablet [facility] clopidogrel 75 MG Oral Tablet [facility] CALCIUM PO [facility] Multiple Vitamins-Minerals (ZINC PO) [facility] VITAMIN D, CHOLECALCIFEROL, PO [facility] Ascorbic Acid (JB-C PO) [facility]
--- NOTE | 2020-12-26 18:55 | REP ---
INDICATION: Altered Mental Status. COMPARISON: 09/30/2020. TECHNIQUE: Single portable AP view of the chest was performed. FINDINGS: There is no acute infiltrate or pulmonary edema. Lungs are clear. The heart is not significantly enlarged. The mediastinal silhouette is unremarkable. The visualized osseous structures are intact. IMPRESSION: No acute pulmonary disease. <Electronically signed by Ten Julien > 12/26/20 0428
[2020-12-26 19:01] LABS: HEMATOCRIT 22.6 % (36.0-47.0); HEMOGLOBIN 7.4 g/dl (12.0-15.5); MEAN CORPUSCULAR HEMOGLOBIN 34.1 pg (27.0-33.0); MEAN CORPUSCULAR HGB CONC 32.7 g/dl (32.0-36.5); MEAN CORPUSCULAR VOLUME 104.1 fl (80.0-96.0); PLATELET COUNT, AUTOMATED 135 10^3/uL (150-450); RED BLOOD COUNT 2.17 10^6/uL (4.00-5.40); WHITE BLOOD COUNT 3.1 10^3/uL (4.0-10.0)
--- NOTE | 2020-12-26 19:10 | REPVR ---
PROCEDURE INFORMATION: Exam: CT Head Without Contrast Exam date and time: 12/26/2020 6:19 PM Age: 85 years old Clinical indication: Altered mental status/memory loss TECHNIQUE: Imaging protocol: Computed tomography of the head without contrast. Radiation optimization: All CT scans at this facility use at least one of these dose optimization techniques: automated exposure control; mA and/or kV adjustment per patient size (includes targeted exams where dose is matched to clinical indication); or iterative reconstruction. COMPARISON: No relevant prior studies available. FINDINGS: Brain: There is moderate age related parenchymal volume loss. White matter changes are demonstrated in the subcortical, centrum semiovale and periventricular white matter consistent with chronic age related small vessel ischemic changes. There is moderate diffuse cerebellar atrophy. Cerebral ventricles: The degree of ventricular dilatation is normal for age and/or degree of atrophy present. Paranasal sinuses: Visualized sinuses are unremarkable. No fluid levels. Mastoid air cells: Visualized mastoid air cells are well aerated. Vasculature: Atherosclerotic calcifications are demonstrated in the intracranial carotid arteries bilaterally as well as in the vertebral basilar system. Bones/joints: Unremarkable. No acute fracture. Soft tissues: Unremarkable. IMPRESSION: 1. There is moderate age related parenchymal volume loss. White matter changes are demonstrated in the subcortical, centrum semiovale and periventricular white matter consistent with chronic age related small vessel ischemic changes. 2. The degree of ventricular dilatation is normal for age and/or degree of atrophy present. 3. There is moderate diffuse cerebellar atrophy. 4. No acute intracranial findings. Electronically signed by: Akash Li On 12/26/2020 19:09:40 PM
[2020-12-26 19:19] LABS: OSMOLALITY SERUM 287 MOSM/KG (280-301)
[2020-12-26 19:31] LABS: ALBUMIN 3.3 GM/DL (3.2-5.2); ALT/SGPT 13 U/L (12-78); BILIRUBIN,DIRECT 0.3 MG/DL (0.0-0.2); BLOOD UREA NITROGEN 19 MG/DL (7-18); CALCIUM LEVEL 8.3 MG/DL (8.8-10.2); CARBON DIOXIDE LEVEL 29 MEQ/L (21-32); CHLORIDE LEVEL 107 MEQ/L (98-107); CK-MB VALUE MASS 1.3 NG/ML (<3.6); CPK CREATINE PHOSPHOKINASE 30 U/L (26-192); CREATININE FOR GFR 0.86 MG/DL (0.55-1.30); ETHYL ALCOHOL (ETHANOL) 0.003 % (0.000-0.010); GLOMERULAR FILTRATION RATE > 60.0 (>32); GLUCOSE, FASTING 103 MG/DL (70-100); MB/CK RELATIVE INDEX 4.33 (< OR =4); SODIUM LEVEL 139 MEQ/L (136-145); TOTAL PROTEIN 5.9 GM/DL (6.4-8.2); TROPONIN I 0.06 NG/ML (< 0.10)
[2020-12-26 19:55] LABS: ATYPICAL LYMPH 8 % (0-5); BASOPHILS 2 % (0-1); EOSINOPHILS 8 % (0-3); LYMPHOCYTES 16 % (16-44); METAMYELOCYTES 1 % (0-0); MONOCYTES 7 % (0-5); NEUTROPHILS 51 % (28-66); PLATELET ESTIMATE DECREASED (NORMAL)
[2020-12-26 20:07] LABS: AMPHETAMINES LEVEL URINE NEGATIVE (NEGATIVE); BARBITURATES URINE NEGATIVE (NEGATIVE); BENZODIAZEPINES URINE NEGATIVE (NEGATIVE); CANNABINOIDS URINE NEGATIVE (NEGATIVE); COCAINE METABOLITE URINE NEGATIVE (NEGATIVE); METHADONE URINE NEGATIVE (NEGATIVE); OPIATES URINE NEGATIVE (NEGATIVE); PHENCYCLIDINE URINE NEGATIVE (NEGATIVE)
[2020-12-26] MEDS ORDERED: MOM 30ML SUSPENSION UDC PO PRN (23:25)
[2020-12-26] MEDS ORDERED: ACETAMINOPHEN TAB 650MG DOSE (2X325MG) PO PRN (23:25)
[2020-12-26] MEDS ORDERED: MAALOX 30 ML SUSP *UDC PO PRN (23:25)
--- NOTE | 2020-12-26 23:26 | HPEPDOC ---
[facility] Medical History & Physical Date of Admission Dec 26, 2020 Date of Service: Dec 26, 2020 Primary Care Physician: CHITO BOWDEN MD [facility] Attending Physician: DEBRA GLEZ MD History and Physical TIME OF SERVICE: 1150PM CHIEF COMPLAINT: memory lapse HISTORY OF PRESENT ILLNESS: an 85 yr old F had TAVR done at [facility] last week. Today she presented to our facility w c/o transient memory loss, fatigue and headache. Shortly after her arrival in the ER her symptoms resolved. At the time of my assessment she attributed her symptoms to anxiety and stress; her best friend has been dealing with dementia, her grandson, who accompanied her to the hospital, is moving to [place], and she lives alone. 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 Today her Hg was 7.4; obtained records from [facility] which showed that the patients Hg was 8.5. Hemoccult was negative. discussed the case with the Surgeon who performed the TAVR, he didnt recommend transfer. REVIEW OF SYSTEMS: 10-point review of systems negative except as listed in HPI PAST MEDICAL/ SURGICAL HISTORY: MDS, Aortic stenosis s/p TAVR, essential HTN, Right lacunar infarct, small vessel ischemic disease, hearing loss, fibrocystic breast disease Osteoporosis / T11-L1 compression fractures, Left hip fx s/p gamma nail repair, Right pubic rami fx, Right intertrochanteric femur s/p ORIF course complicated by post op RLE DVT, fibroids s/p hysterectomy, resection of sigmoid colon polyp, resection of sebaceous cysts on forehead and back, right cataract surgery FAMILY HISTORY: Grandmother colon cancer / Father CAD & [place] / Brothers (2) had leukemia SOCIAL HISTORY: She lives alone, doesnt smoke or drink alcohol ALLERGIES: Please see below. HOME MEDICATIONS: Please see below. PHYSICAL EXAMINATION: Vital Signs Date Time Temp Pulse Resp B/P (MAP) Pulse Ox O2 Delivery O2 Flow Rate FiO2 12/26/20 17:23 98.8 116 16 138/84 (102) 97 Room Air GENERAL APPEARANCE: well-nourished and developed/ slightly anxious HEENT: EOMI / MMM&P / prominent JVP CARDIOVASCULAR: RRR/ systolic murmur LUNGS: CTAB on RA MUSCULOSKELETAL: NCAT / BRIAN x 4 extremities INTEGUMENT: slightly pale / not flushed or diaphoretic NEUROLOGICAL: CN 2-12 grossly intact / speech not dysarthric PSYCHIATRIC: A&O / able to understand and follow all commands LABORATORY DATA: IMAGING: Chest xray IMPRESSION: No acute pulmonary disease. CT head IMPRESSION: 1. There is moderate age related parenchymal volume loss. White matter changes are demonstrated in the subcortical, centrum semiovale and periventricular white matter consistent with chronic age related small vessel ischemic changes. 2. The degree of ventricular dilatation is normal for age and/or degree of atrophy present. 3. There is moderate diffuse cerebellar atrophy. 4. No acute intracranial findings. MICROBIOLOGY: Respiratory panel negative ASSESSMENT: is a 85 yr old w MDS, HTN, CVA & Osteoporosis who presented w transient BIGGS and memory loss and will be admitted for post TAVR acute anemia. PLAN: 1 Post TAVR ? 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 Plan: hold Anagrelide and f/u repeat CBC in the morning / f/u w Hematology prior to resuming the med 3 Confusion She has small vessel ischemic disease & cerebral volume loss on CT Plan: she can be referred to a Neurologist for comprehensive neurocognitive testing, alternatively her PCP can perform the MOCA (depending on the results it may be prudent for her to move in with a family member) 4 Essential HTN / small vessel ischemic disease Plan: Lasix 5 Hx of Right lacunar infarct Plan: Plavix 6 Hearing loss Plan: she should be tested for hearing aides on an outpatient basis (hearing loss in the elderly can accelerate dementia) 7 Osteoporosis / T11-L1, pubic rami & intertrochanteric fractures Plan: Oscal / she can f/u with her PCP to start Prolia (with her low GRF) unless there is a contraindication to her taking this medication 8 Unsteady Gait likely 2/2 Sarcopenia Plan: the day time team may consider PT consult to determine if she is a candidate for out patient PT DVT px w LIONEL/SCDs bc of bicytopenia Disposition: home after more than 2 midnights stay Home Medications Scheduled Anagrelide HCl (Anagrelide HCl) 0.5 Mg Capsule, 1.5 MG PO DAILY Calcium Carbonate (Oyster Shell Calcium) 500 Mg Tablet, 500 MG PO BID Clopidogrel Bisulfate (Clopidogrel) 75 Mg Tablet, 75 MG PO DAILY Ferrous Gluconate (Ferrous Gluconate) 324 Mg Tablet, 324 MG PO DAILY Furosemide (Furosemide) 20 Mg Tablet, 30 MG PO DAILY Isosorbide Dinitrate (Isosorbide Dinitrate) 5 Mg Tablet, 5 MG PO BID Scheduled PRN Lidocaine (Lidocaine) 5% Adh..patch, 1 PATCH TOP DAILY PRN for MILD PAIN (PS 1- 4) 1/2 PATCH ON BOTH HIPS Allergies Coded Allergies: No Known Drug Allergies (Verified Allergy, Unknown, 03/29/19) A-FIB/CHADSVASC A-FIB History Current/History of A-Fib/PAF?: No Current PO Anticoag Therapy: No DEBRA GLEZ MD Dec 26, 2020 23:26
[2020-12-26 23:47] LABS: EOS # 0.2 10^3/uL (0.0-0.5); EOS % 6.6 % (0.0-3.0); LYMPH # 0.6 10^3/uL (1.5-5.0); LYMPH % 21.2 % (24.0-44.0); MONO # 0.4 10^3/uL (0.0-0.8); MONO % 13.2 % (2.0-8.0); NEUTROPHILS # 1.8 10^3/uL (1.5-8.5); NEUTROPHILS % 58.3 % (36.0-66.0)
[2020-12-26 23:48] LABS: FERRITIN 561 NG/ML (8-252); IRON (FE) 65 UG/DL (50-170); LDH LACTATE DEHYDROGENASE 471 U/L (84-246); PERCENT SATURATION 47.1 % (13.2-45.0); TOTAL IRON BINDING CAPACITY 138 UG/DL (250-450)
--- OUTSIDE RECORDS SUMMARY | 2020-12-26 23:55 | CCD ---
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 Name Role Phone Mal, A Gracie PROGRAM TECHNICIAN Unavailable Unavailable Mal, A Gracie PROGRAM TECHNICIAN Unavailable Unavailable Mal, A Gracie PROGRAM TECHNICIAN Unavailable Unavailable Mal, A Gracie PROGRAM TECHNICIAN Unavailable Unavailable Mal, A Gracie PROGRAM TECHNICIAN Unavailable Unavailable Mal, A Gracie PROGRAM TECHNICIAN Unavailable Unavailable Mal, A Gracie PROGRAM TECHNICIAN Unavailable Unavailable Mal, A Gracie PROGRAM TECHNICIAN Unavailable Unavailable Mal, A Gracie PROGRAM TECHNICIAN Unavailable Unavailable Mal, A Gracie PROGRAM TECHNICIAN Unavailable Unavailable Mal, A Gracie PROGRAM TECHNICIAN Unavailable Unavailable Mal, A Gracie PROGRAM TECHNICIAN Unavailable Unavailable Mal, A Gracie PROGRAM TECHNICIAN Unavailable Unavailable Mal, A Gracie PROGRAM TECHNICIAN Unavailable Unavailable Mal, A Gracie PROGRAM TECHNICIAN Unavailable Unavailable Mal, A Gracie PROGRAM TECHNICIAN Unavailable Unavailable Mal, A Gracie PROGRAM TECHNICIAN Unavailable Unavailable Mal, A Gracie PROGRAM TECHNICIAN Unavailable Unavailable Mal, A Gracie PROGRAM TECHNICIAN Unavailable Unavailable Mal, A Gracie PROGRAM TECHNICIAN Unavailable Unavailable Mal, A Gracie PROGRAM TECHNICIAN Unavailable Unavailable Mal, A Gracie PROGRAM TECHNICIAN Unavailable Unavailable Mal, A Gracie PROGRAM TECHNICIAN Unavailable Unavailable Mal, A Gracie PROGRAM TECHNICIAN Unavailable Unavailable Mal, A Gracie PROGRAM TECHNICIAN Unavailable Unavailable Kocan, J Burt WOODYARD CRANE OPERATOR Unavailable Unavailable Kocan, J Burt WOODYARD CRANE OPERATOR Unavailable Unavailable Kocan, J Burt WOODYARD CRANE OPERATOR Unavailable Unavailable Kocan, J Burt WOODYARD CRANE OPERATOR Unavailable Unavailable Kocan, J Burt WOODYARD CRANE OPERATOR Unavailable Unavailable Kocan, J Burt WOODYARD CRANE OPERATOR Unavailable Unavailable Kocan, J Burt WOODYARD CRANE OPERATOR Unavailable Unavailable Kocan, J Burt WOODYARD CRANE OPERATOR Unavailable Unavailable Kocan, J Burt WOODYARD CRANE OPERATOR Unavailable Unavailable Kocan, J Burt WOODYARD CRANE OPERATOR Unavailable Unavailable Kocan, J Burt WOODYARD CRANE OPERATOR Unavailable Unavailable Kocan, J Burt WOODYARD CRANE OPERATOR Unavailable Unavailable Kocan, J Burt WOODYARD CRANE OPERATOR Unavailable Unavailable Nataliia PASTRANA MD Unavailable Unavailable [...] Unavailable Nataliia PASTRANA MD Unavailable Unavailable SKYLER, MICHAEL PALMER Unavailable Unavailable SKYLER, MICHAEL PALMER Unavailable Unavailable SKYLER, MICHAEL PALMER Unavailable Unavailable SKYLER, ANGELES MD Unavailable Unavailable SKYLER, NAGELES MD Unavailable Unavailable SKYLER, ANGELES MD Unavailable [...] Unavailable SKYLER, ANGELES MD Unavailable Unavailable SKYLER, MICHAEL PALMER Unavailable Unavailable SKYLER, MICHAEL PALMER Unavailable Unavailable SKYLER, ANGELES MD Unavailable Unavailable SKYLER, ANGELES MD Unavailable Unavailable SKYLER, ANGELES MD Unavailable Unavailable SKYLER, ANGELES MD Unavailable Unavailable SKYLER, ANGELES MD Unavailable Unavailable SKYLER, ANGELES MD Unavailable Unavailable SKYLER, MICHAEL PALMER Unavailable Unavailable SKYLER, ANGELES MD Unavailable Unavailable SKYLER, ANGELES MD Unavailable Unavailable SKYLER, ANGELES MD Unavailable Unavailable SKYLER, ANGELES MD Unavailable Unavailable SKYLER, ANGELES MD Unavailable Unavailable SKYLER, ANGELES MD Unavailable Unavailable SKYLER, ANGELES MD Unavailable Unavailable Dionna, Mildred Nash MD Unavailable Unavailable Lane-Murali, Mildred Nash MD Unavailable Unavailable Dionna, Mildred Nash MD Unavailable Unavailable El-Murali, Mildred Nash MD Unavailable Unavailable Dionna, Mildred Nash MD Unavailable Unavailable Dionna, Mildred Nash MD Unavailable Unavailable Dionna, Mildred Nash MD [...] MARLI MD Unavailable Unavailable Kocan, J Burt WOODYARD CRANE OPERATOR Unavailable Unavailable Kocan, J Burt WOODYARD CRANE OPERATOR Unavailable Unavailable Kocan, J Burt WOODYARD CRANE OPERATOR Unavailable Unavailable Kocan, J Burt WOODYARD CRANE OPERATOR Unavailable Unavailable Kocan, J Burt WOODYARD CRANE OPERATOR Unavailable Unavailable Kocan, J Burt WOODYARD CRANE OPERATOR Unavailable Unavailable Kocan, J Burt WOODYARD CRANE OPERATOR Unavailable Unavailable Kocan, J Burt WOODYARD CRANE OPERATOR Unavailable Unavailable Kocan, J Burt WOODYARD CRANE OPERATOR Unavailable Unavailable Kocan, J Burt WOODYARD CRANE OPERATOR Unavailable Unavailable Kocan, J Burt WOODYARD CRANE OPERATOR Unavailable Unavailable Kocan, J Burt WOODYARD CRANE OPERATOR Unavailable Unavailable Kocan, J Burt WOODYARD CRANE OPERATOR Unavailable Unavailable PIERO, MARLI MD Unavailable Unavailable [...] A CHITO MD Unavailable Unavailable EMERTON, A HCITO MD Unavailable Unavailable EMERTON, A CHITO MD [...] is protected by Article 27-F of the [facility] Public Health law. If you continue you may have access to information: Regarding HIV / AIDS; Provided by facilities licensed or operated by the [facility] Office of Mental Health; or Provided by the [facility] Office for People With Developmental Disabilities. If such information is present, then the following [facility] mandated warning applies: This [...] law may result in a fine or assisted sentence or both. A general authorization for [...] SANDOVAL MD ES1-[id number].ANES 2020 10:30:20 AM EDT [facility] Inpatient Attender: Saad Villareal MDAdmitter: Saad moser MD [id number] 2020 10:27:00 AM EDT - 12/22/2020 02:19:00 PM EDT [facility] Patient discharged. Outpatient Attender: Saad Villareal MDReferrer: Saad moser MD MOB-MOB.PAT 12/16/2020 09:56:20 AM EDT - 12/16/2020 11:20:12 AM EDT [facility] Outpatient Referrer: Saad Villareal MD MOB-MOB.PAT 10/2020 09:33:58 AM EDT - 12/16/2020 09:34:04 AM EDT [facility] Unknown [address], [facility] [address] 12/15/2020 12:00:00 AM EDT eCW1 ([facility]) Outpatient Attender: MARLI RED MD 12/08/2020 01:15:0 0 PM EDT [facility] Outpatient Attender: MARLI RED MD -CTCMEDON 12/07/2020 0 1:12:00 PM EDT [facility] Outpatient Attender: MARLI RED MD Attender: CHITO BOWDEN MDConsultant: CHITO BOWDEN MD 12/06/2020 10:33:00 AM EDT - 12/06/2020 11:33:00 AM EDT [facility] Outpatient Attender: CARIN Holder/Hugo/Piero/ Og 12/01/2020 01:00:00 PM EDT [facility] ([facility]ice, ) Outpatient Referrer: Gracie STANOFRD 12/01/2020 11:4 5:34 AM EDT [facility] Outpatient Referrer: Gracie STANFORD 11/30/2020 10:1 2:09 AM EDT [facility] Outpatient Attender: Burt RAVI SJP.SEDA-SJP.SEDA 2020 12:00:00 AM EDT - 11/23/2020 02:28:32 PM EDT [facility] Outpatient Attender: Saad Villareal MDA dmitter: Saad Villareal MDReferrer: Gracie STANFORD ES1-SJ.CVAU 11/21/2020 11:22:00 AM EDT - 11/21/2020 06:10:00 PM EDT [facility] Patient discharged. Outpatient Attender: Burt RAVIConsultant: CHITO BOWDEN MD 10/27/2020 08:11:00 AM EDT - 10/27/2020 09:11:00 AM EDT [facility] Outpatient Attender: Burt RAVI SJP.SEDA-SJP.SEDA 2020 11:19:51 AM EDT - 10/26/2020 12:54:40 PM EDT [facility] Outpatient Attender: MARLI RED MD 10/12/2020 12:17:0 0 PM T [facility] Outpatient Attender: MARLI RED MD 10/11/2020 01:34:0 0 PM EDT [facility] Outpatient Attender: MARLI RED MD ER-CTCMEDONC 10/10/2020 0 9:42:00 AM EDT [facility] Outpatient Attender: MARLI RED MD ER-CTCMEDONC 10/05/2020 0 9:06:00 AM T [facility] Outpatient Attender: Burt Dominique RNPReferrer: Burt Beard NP SJP.SEDA-SJP.SEDA 09/21/2020 12:50:22 PM EDT - 09/21/2020 01:41:47 PM EDT [facility] Outpatient Attender: MARLI RED MD ER-CTCMEDONC 07/27/2020 0 1:44:00 PM EDT [facility] Outpatient Attender: MARLI RED MDConsultant: CHITO VELAZQUEZ MD 07/19/2020 09:18:00 AM EDT - 07/19/2020 10:18:00 AM EDT [facility] Outpatient Attender: Burt Dominique RNPAttender: MICHAEL HOLLAND MD SJP.SEDA-SJP.SEDA 07/13/2020 10:41:32 AM EDT - 07/13/2020 12:21:34 PM EDT [facility] ([facility]) PDT [address] [address] 06/16/2020 12:00:00 AM EDT [facility] ([facility]) Outpatient Attender: MARLI RED MD 04/28/2020 02:35:0 0 PM [facility] Outpatient Attender: MARLI RED MDConsultant: CHITO VELAZQUEZ MD 04/05/2020 08:34:00 AM [facility] - 04/05/2020 09:34:00 AM [facility] Outpatient Attender: MARLI RED MD -CTCMEDON 03/31/2020 0 8:43:00 AM [facility] Outpatient Attender: MARLI RED MDConsultant: CHITO VELAZQUEZ MD 03/24/2020 10:17:00 AM [facility] 03/24/2020 11:17:00 AM [facility] Outpatient Attender: MARLI RED MD 03/23/2020 09:07:0 0 AM [facility] Admission cancelled. Disregard status an d admitted date. Outpatient Attender: MARLI RED MD ER-WADDCTC 02/19/2020 08:26:0 0 AM [facility] Outpatient Attender: MARLI RED MDConsultant: CHITO VELAZQUEZ MD 02/15/2020 10:32:00 AM EST - 02/15/2020 11:32:00 AM [facility] Outpatient Attender: MARLI RED MDConsultant: CHITO VELAZQUEZ MD 02/11/2020 09:50:00 AM [facility] - 02/11/2020 10:50:00 AM [facility] Outpatient Attender: MARLI RED MD 02/10/2020 11:34:0 0 AM [facility] Outpatient Attender: MARLI RED MDConsultant: CHITO VELAZQUEZ MD 02/10/2020 10:06:00 AM [facility] - 02/10/2020 11:06:00 AM [facility] Preadmit Attender: MARLI RED MD 01/18/2020 11:36:0 0 AM [facility] Preadmit Attender: MARLI RED MD 01/13/2020 10:53:0 0 AM [facility] Outpatient Attender: MARLI RED MD [facility] 10/13/2019 0 1:08:00 PM [facility] Outpatient Attender: MARLI RED MD [facility] 07/20/2019 0 7:48:00 AM [facility] Outpatient Attender: MARLI RED MD [facility] 01/16/2019 1 0:57:00 AM [facility] Preadmit Attender: MARLI RED MD 01/01/2019 02:19:0 0 PM [facility] Outpatient Attender: MARLI RED MD [facility] 06/16/2018 1 0:14:00 AM [facility] Immunizations Vaccine Date Status Description Data Source(s) COVID-19 VACCINE Moderna 05/09/2020 12:00:00 AM EST completed [employer] Vaccine Series Complete: YESThis Data wa s Submitted to [facility] Via [employer]. COVID-19 VACCINE, MRNA-1273, LNP-S (MODERNA)/PF [...] 1 per rectum prn starting POD #3.
[facility] Medication administered onsite POLYETHYLENE GLYCOL 3350 142 MG/ML Oral Solution polyethylene glycol (GLYCOLAX) packet 17 g polyethylene glycol (GLYCOLAX) packet 17 g 12/23/2020 07:00:00 AM EDT 17 g Oral active 17 g, Or al, Daily PRN, For constipation, Starting on 12/23/20 at 0700, PACU & Post-op
hold for loose stools
[facility] Medication administered onsite 75 mg 12/23/2020 12:00:00 AM EDT tablet 30 TAKE ONE TABLET BY MOUTH EVERY DAY TAKE ONE TABLET BY MOUTH EVERY DAY SOLD: 12/23/2020 [facility] clopidogrel 75 MG Oral Tablet clopidogrel (PLAVIX) 75 MG tablet clopidogrel (PLAVIX) 75 MG tablet 12/23/2020 12:00:00 AM EDT 75 mg Oral active Take 1 tablet (75 mg total) by mouth daily [facility] Docusate Sodium 100 MG Oral Capsule docusate sodium (C OLACE) capsule 100 mg docusate sodium (COLACE) capsule 100 mg 12/22/2020 09:00:00 AM EDT 100 mg Oral active 100 mg, Oral, 2 times daily, First dose on Aniyah 12/22/20 at 0900, Post-op
Start first POD.
[facility] Medication administered onsite clopidogrel 75 MG Oral Tablet clopidogrel (PLAVIX) tab let 75 mg clopidogrel (PLAVIX) tablet 75 mg 12/22/2020 09:00:00 AM EDT 75 mg Oral active 75 mg, Oral, Daily, First dose on Aniyah 12/22/20 at 0900, Post-op
Start first POD.
[facility] Medication administered onsite Amoxicillin 500 MG Oral Capsule amoxicillin (AMOXIL) 5 00 MG capsule amoxicillin (AMOXIL) 500 MG capsule 12/22/2020 12:00:00 AM EDT 2000 mg Oral active Take 4 capsules (2,000 mg total) by mout h once as needed ue prior to dental procedures [facility] normal saline flush 0.9 % injection 3 mL [id number] 2020 09:00:00 PM EDT 3 mL Intravenous active 3 mL , Intravenous, PROTOCOL, First dose on Sat12/21/20 at 2100, Post-op
flush per protocol, D/C Main IV fluid if appropriate
[facility] Medication administered onsite Cefazolin 1000 MG [...] minutes. Use within 1 hour of reconstitution
[facility] Perioperative Pharmacoprophylaxis Medication administered onsite acetaminophen [...] Sat12/21/20 at 1820, Post-op [Order 2 End] [facility] Medication administered onsite 2 ML Metoclopramide 5 MG/ML Prefilled Sy ringe metoclopramide (REGLAN) injection 5 mg metoclopramide (REGLAN) injection 5 mg 2020 06:20:43 PM EDT 5 mg Intravenous active 5 mg, Intrave nous, Every 6 hours PRN, nausea, vomiting, Starting on Sat12/21/20 at 1820, Post-op
Give once if no response to Zofran after 15-30 minutes, then q6h prn N/V.
[facility] Medication administered onsite ondansetron (ZOFRAN) injection 4 mg [id number] 2020 06:20:4 3 PM EDT 4 mg Intravenous active 4 mg, In travenous, Every 6 hours PRN, nausea, vomiting, Starting on Sat12/21/20 at 1820, Post-op
If no response in 15-30 minutes then give metoclopramide 10 mg IV x 1 then q6h prn N/V.
[facility] Medication administered onsite 10 ML Atropine [...] total of 3 mg or 0.04 mg/kg.
[facility] Medication administered onsite sodium chloride 0.9% (NS) infusion [id number] 2020 05:00:00 P M EDT Intravenous completed at 50 mL/hr, Intravenous, Continuous, Starting on Sat12/21/20 at 1700, For 4 hours, Post-op [facility] Medication administered onsite clopidogrel 300 MG Oral Tablet clopidogrel (PLAVIX) ta blet 300 mg clopidogrel (PLAVIX) tablet 300 mg 2020 04:00:00 PM EDT 300 mg Oral completed 300 mg, Oral, Once, On Sat12/21/20 at 1600, For 1 dos e [facility] Medication administered onsite Metronidazole 0.0075 MG/MG Topical Gel m etroNIDAZOLE (METROGEL) 0.75 % gel 1 application metroNIDAZOLE (METROGEL) 0.75 % gel 1 application 12/09 04:00:00 PM EDT 1 {application} Topical active 1 application, Topical, 2 times daily, First dose on Sat12/21/20 at 1600, Until Discontinued [facility] Medication administered onsite anagrelide 0.5 MG Oral Capsule anagrelide (AGRYLIN) ca psule 0.5 mg anagrelide (AGRYLIN) capsule 0.5 mg 2020 04:00:00 PM EDT 0.5 mg Oral active 0.5 mg, Oral, 3 times daily, First dose on Sat 1 at 1600 [facility] Medication administered onsite ferrous gluconate 324 MG Oral Tablet ferrous gluconate (FERGON) tablet 324 mg ferrous gluconate (FERGON) tablet 324 mg 2020 04:00:00 PM EDT 324 mg Oral active 324 mg, Oral, 2 times daily, First dose on Sat12/21/20 at 1600
separate as far as possible from antacids, take with food
[facility] Medication administered onsite lidocaine (ASPERCREME) 4 % 1 patch [id number] 2020 03:33:22 PM EDT 1 {patch} Transdermal active 1 patch, Transdermal, Administer over 12 Hours, Daily PRN, to back/hips, Starting on Sat12/21/20 at 1533 [facility] Medication administered onsite sodium chloride 0.9% (NS) infusion [id number] 2020 12:00:00 P M EDT Intravenous aborted at 75 mL/hr, Intravenous, Continuous, Starting on Sat12/21/20 at 1200, Pre-op [facility] Medication administered onsite cefazolin (ANCEF) injection 2 g drug or medication 2020 12:00 :00 PM EDT 2 g Intravenous completed 2 g, Int ravenous, Administer over 6 Minutes, pot runner, On Sat12/21/20 at 1200, For 1 dose, Pre-op
Send to OR. RN may administer IV push or infuse this medication through syringe adapter set ref [id number]. Flush line after use
[facility] Medication administered onsite Minocycline 100 MG Oral Capsule Minocycline HCl 100 MG Minoc ycline HCl 100 MG 12/06/2020 12:00:00 AM EDT 1.0 {capsule} active Minocycline HCl 100 MG eCW1 ([facility]) Metronidazole 7.5 MG/ML Topical Cream metroNIDAZOLE 0.75 % m etroNIDAZOLE 0.75 % 12/06/2020 12:00:00 AM EDT 1.0 {application} act jim metroNIDAZOLE 0.75 % eCW1 ([facility]) normal saline flush 0.9 % injection 3 mL [id number] 11/21/2020 03:00:00 PM EDT 3 mL Intravenous active 3 mL , Intravenous, PROTOCOL, First dose on Sat11/21/20 at 1500, Pre-op
flush per protocol, D/C Main IV fluid if appropriate
[facility] Medication administered onsite iopamidol (ISOVUE-370) 76 % [id number] 11/21/2020 02:56:18 PM EDT active As needed, Starting on Sat11/21/20 at 1456, Intra-Proc edure [facility] Medication administered onsite 1 ML heparin sodium, porcine 1000 UNT/ML Injection hep melina (porcine) injection heparin (porcine) injection 11/21/2020 02:45:10 PM EDT active As needed, Starting on Sat11/21/20 at 1445, Intra-Procedure [facility] Medication administered onsite 4 ML Verapamil hydrochloride 2.5 MG/ML Injection verap gaviota (ISOPTIN) injection verapamil (ISOPTIN) injection 11/21/2020 02:44:49 PM EDT active As needed, Starting on Sat11/21/20 at 1444, Intra-Procedure [facility] Medication administered onsite lidocaine 1 % injection [id number] 11/21/2020 02:30:50 PM EDT active As needed, Starting on Sat at 1430, Intra-Procedure [facility] Medication administered onsite normal saline flush 0.9 % injection 3 mL [id number] 11/21/2020 02:00:00 PM EDT 3 mL Intravenous active 3 mL , Intravenous, Every 8 hours (scheduled), First dose on Sat11/21/20 at 1400, Pre-op
Rapid push positive pressure flushing shall be performed with a 10 cc normal saline syringe to check the PATENCY of a PIV site prior to any infusion therapy initiation unless resistance is met.
[facility] Medication administered onsite normal saline flush 0.9 % injection 3 mL [id number] 11/21/2020 02:00:00 PM EDT 3 mL Intravenous active 3 mL , Intravenous, Every 8 hours (scheduled), First dose on Sat11/21/20 at 1400, Pre-op
Rapid push positive pressure flushing shall be performed with a 10 cc normal saline syringe to check the PATENCY of a PIV site prior to any infusion therapy initiation unless resistance is met.
[facility] Medication administered onsite Diphenhydramine Hydrochloride 50 MG Oral Capsule diphenhydrAMINE (BENADRYL) capsule 50 mg diphenhydrAMINE (BENADRYL) capsule 50 mg 11/21/2020 01 :00:00 PM EDT 50 mg Oral completed 50 mg, Oral, pot runner, On Sat11/21/20 at 1300, For 1 dose, Pre-op [facility] Medication administered onsite sodium chloride 0.9% (NS) infusion [id number] 11/21/2020 01:00:00 PM EDT 100 mL/h Intravenous active at 100 m L/hr, 100 mL/hr, Intravenous, Continuous, Starting on Sat11/21/20 at 1300, Pre-op
Start two hours prior to scheduled start time
[facility] Medication administered onsite Aspirin 325 MG Oral Tablet aspirin tablet 325 mg aspirin tab let 325 mg 11/21/2020 01:00:00 PM EDT 325 mg Oral completed 325 mg, Oral, Once, On 11/21/20 at 1300, For 1 dose, Pre-op
Give if scheduled for cardiac or peripheral angioplasty/stent or carotid stenting. Administer AM dose prior to procedure if NOT taken at home. Max of 1 dose per day.
[facility] Medication administered onsite Furosemide 20 MG Oral Tablet furosemide (LASIX) 20 MG tablet furosemide (LASIX) 20 MG tablet 10/03/2020 12:00:00 AM EDT 20 mg Oral activ e Take 20 mg by mouth daily [facility] 24 HR metoprolol succinate 50 MG Extende d Release Oral Tablet metoprolol succinate (TOPROL-XL) 50 MG 24 hr tablet metoprolol succinate (TOPROL-XL) 50 MG 24 hr tablet 10/05/2019 12:00:00 AM EDT 1 {tbl} Oral abor constantino Take 1 tablet by mouth 2 (two) times a day [facility] Isosorbide Dinitrate 20 MG Oral Tablet i sosorbide dinitrate (ISORDIL) 20 MG tablet isosorbide dinitrate (ISORDIL) 20 MG tablet 10/02/2019 12:00:00 AM EDT 20 mg Oral aborted Take 20 mg by mouth 2 (t wo) times a day [facility] Cyclosporine 0.5 MG/ML Ophthalmic Suspen monique [Restasis] RESTASIS 0.05 % ophthalmic emulsion RESTASIS 0.05 % ophthalmic emulsion 07/07/2019 12:00:0 0 AM EDT aborted [facility] Ascorbic Acid (JB-C PO) drug or medication Oral aborted Take by mouth daily [facility] clopidogrel 75 MG Oral Tablet clopidogrel (PLAVIX) 75 MG tablet clopidogrel (PLAVIX) 75 MG tablet 75 mg Oral aborted Take 75 mg by mouth daily Patient states she took 2 pills last night [facility] Hydrochlorothiazide 25 MG Oral Tablet hy drochlorothiazide (HYDRODIURIL) 25 MG tablet hydrochlorothiazide (HYDRODIURIL) 25 MG tablet 25 mg O ral aborted Take 25 mg by mouth daily Take 1/2 tablet by mouth daily, or 1 tablet every other day [facility] VITAMIN D, CHOLECALCIFEROL, PO drug or medication Oral aborted Take by mouth daily [facility] CALCIUM PO drug or medication Oral aborted Take by mouth daily [facility] Multiple Vitamins-Minerals (ZINC PO) drug or medication Oral aborted Take by mouth daily [facility] Insurance Providers Payer name Policy type / Coverage type Policy ID Covered constitution party ID Covered constitution party's relationship to oquendo Policy [place] Plan Information MEDICARE [id number] Shayy [id number] MEDICARE [id number] MEDICARE [id number] SP [id number] A Medicare Part B [facility] [place] [id number] MEDICARE A [id number] Self [id number] [id number] MEDICARE [id number] SP [id number] [employer] [id number] 0 [id number] UMR U [id number] Self [id number] UMR [id number] UMR U [id number] Self [id number] UMR [id number] Shayy [id number] INSURANCE COVID-19 [id number] COVI 2 [id number] INSURANCE COVID-19 COVI Shayy C NARINDER INSURANCE COVID-19 COVID Shayy C OVID NORIDIAN JE PART B C [id number] S [id number] [employer] MEDICAL CLAIMS [id number] SP [id number] [facility] [id number] S [id number] A MEDICARE [id number] S [id number] A Umr/Uhc/[employer] Medigap Part B [id number] Self [id number] Medicare Natl Gov't Servi Medicare Primary [id number] Self [id number] [employer] -O/P [id number] 18 [id number] UMR O [id number] S [id number] MEDICARE C [id number] S [id number] A UMR O [id number] S [id number] [employer] PPO O [id number] S [id number] [employer] [id number] 0 [id number] IBEW LOCAL [id number] S [id number] MCRB [id number] S [id number] MEDICARE -O/P [id number] 18 [id number] [place] [id number] Self Medicare [place] [id number] Self [employer] O [id number] S [id number] UMR [facility] [id number] SP [id number] MEDICARE PART B-O/P UNAVAILABLE UNAVAILABLE UMR -O/P [id number] 18 [id number] MEDICARE PART A -O/P [id number] 18 [id number] UMR [id number] S [id number] MEDICARE [id number] S [id number] U17 MCRB [id number] S [id number] U17 UMR [id number] S [id number] MEDICARE PART A -O/P [id number] 18 [id number] IBEW LOCAL 1249 INSURANCE FUND -O/P [id number] 18 [id number] POMCO [id number] S [id number] POMCO [id number] S [id number] UMR [facility] [id number] SP [id number] UMR O [id number] S [id number] MEDICARE C [id number] S [id number] U17 Problems, Conditions, and Diagnoses Code Display Name Description Problem Type Effective Dates Data Source(s) I35.0 Nonrheumatic aortic (valve) stenosis Nonrheumati c aortic (valve) stenosis Diagnosis 12/16/2020 09:56:20 AM EDT [facility] U07.1 COVID-19 COVID-19 Diagnosis 12/16/2020 09:33:58 AM ED T [facility] D64.9 Anemia, unspecified ANEMIA, UNSPECIFIED Diagnosis 0 12/07/2020 01:12:00 PM EDT [facility] D649 Anemia, unspecified Anemia, unspecified Diagnosis 0 12/06/2020 10:33:00 AM EDT [facility] R791 Abnormal coagulation profile Abnormal coagulation prof ile Diagnosis 12/06/2020 10:33:00 AM EDT [facility] U09658 Lymphocytosis (symptomatic) Lymphocytosis (symptomatic ) Diagnosis 12/06/2020 10:33:00 AM EDT [facility] [id number] Decreased white blood cell count, unspec ified Decreased white blood cell count, unspecified Diagnosis 12/06/2020 10:33:00 AM EDT [facility] M19.90 Unspecified osteoarthritis, unspecified site Unspecified osteoarthritis, unspecified Diagnosis 11/23/2020 01:26:51 PM EDT [facility] K21.9 Gastro-esophageal reflux disease without esophagitis Gastro-esophageal reflux disease without Diagnosis 11/23/2020 01:26:51 PM EDT [facility] 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 Chronic embolism and thrombosis of right Diagnosis 11/23/2020 01:26:51 PM EDT [facility] D69.6 Thrombocytopenia, unspecified Thrombocytopenia, unspec ified Diagnosis 11/21/2020 11:22:00 AM EDT [facility] I82.431 Acute embolism and thrombosis of right p opliteal vein Acute embolism and thrombosis of right p Diagnosis 11/21/2020 11:22:00 AM EDT [facility] I10 Essential (primary) hypertension Essential (primary) h ypertension Diagnosis 11/21/2020 11:22:00 AM EDT [facility] R06.02 Shortness of breath Shortness of breath Diagnosis 0 11/21/2020 11:22:00 AM EDT [facility] E78.5 Hyperlipidemia, unspecified Hyperlipidemia, unspecifie d Diagnosis 11/21/2020 11:22:00 AM EDT [facility] E785 Hyperlipidemia, unspecified Hyperlipidemia, unspecifie d Diagnosis 10/27/2020 08:11:00 AM EDT [facility] I10 Essential (primary) hypertension Essential (primary) h ypertension Diagnosis 10/27/2020 08:11:00 AM EDT [facility] R0602 Shortness of breath Shortness of breath Diagnosis 0 10/27/2020 08:11:00 AM EDT [facility] I350 Nonrheumatic aortic (valve) stenosis Nonrheumati c aortic (valve) stenosis Diagnosis 10/27/2020 08:11:00 AM EDT [facility] 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), and cerebral infarction without residual deficits PRSNL HX OF TIA (TIA), AND CEREB INFRC W /O RESID D Diagnosis 10/12/2020 12:17:00 PM EDT [facility]via D72.819 Decreased white blood cell count, unspec ified DECREASED WHITE BLOOD CELL COUNT, UNSPECIFIED Diagnosis 10/12/2020 12:17:00 PM EDT [facility]via I10 Essential (primary) hypertension ESSENTIAL (PRIMARY) H YPERTENSION Diagnosis 10/12/2020 12:17:00 PM [facility] D47.3 Essential (hemorrhagic) thrombocythemia ESSENTIAL (HEMORRHAGIC) THROMBOCYTHEMIA Diagnosis 10/12/2020 12:17:00 PM EDT [facility]via R06.00 Dyspnea, unspecified DYSPNEA, UNSPECIFIED Diagnosis 10/12/2020 12:17:00 PM [facility] R79.1 Abnormal coagulation profile ABNORMAL COAGULATION PROF ILE Diagnosis 10/10/2020 09:42:00 AM EDT [facility] K08.89 OTHER SPECIFIED DISORDERS OF TEETH AND S UPPORTING OTHER SPECIFIED DISORDERS OF TEETH AND SUPPORTING Diagnosis 07/27/2020 01:44:00 PM [facility] D70.9 Neutropenia, unspecified NEUTROPENIA, UNSPECIFIED Diag nosis 03/31/2020 08:43:00 AM [facility] 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 Essential (hemorrhagic) thrombocythemia Diagnosis 03/24/2020 10:17:00 AM [facility] 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 Diagnosis 02/10/2020 11:34:00 AM [facility] R06.89 Other abnormalities of breathing OTHER ABNORMALI TIES OF BREATHING Diagnosis 02/10/2020 11:34:00 AM [facility] R23.8 Other skin changes OTHER SKIN CHANGES Diagnosis 04/2019 11:34:00 AM [facility] D75.839 Thrombocytosis Thrombocytosis [id number] 2020 12:00: 00 AM EDT [facility] Z95.2 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 (transcatheter aortic valve replacement) [id number] 2020 12:00:00 AM EDT [facility] I35.0 Nonrheumatic aortic (valve) stenosis Nonrheumati c aortic (valve) stenosis [id number] 2020 12:00:00 AM EDT [facility] L71.0 [id number] Perioral dermatitis Problem 12/06/2020 12:00 :00 AM EDT eCW1 ([facility]) [id number] Essential hypertension Essential hypertension Problem 12/01/2020 12:00:00 AM EDT [facility] ([facility] ) E78.5 Hyperlipidemia Hyperlipidemia [id number] 11/08/2020 12:00: 00 AM EDT [facility] D69.6 Thrombocytopenia Thrombocytopenia [id number] 07/13/2020 12 :00:00 AM EDT [facility] R06.02 Shortness of breath on exertion Shortness of breath on exertion [id number] 07/13/2020 12:00:00 AM EDT [facility] Surgeries/Procedures Procedure Description Date Indications Data Source(s) ECHO TTHRC R-T 2D W/WOM-MODE COMPL SPEC&COLR DOP <td>E CHOCARDIOGRAM TRANSTHORACIC</td><td>Pending Discharge</td><td>12/22/2020 9:02 AM EDT</td><td></td><td> </td> 12/22/2020 09:02:36 AM EDT [facility] XR CHEST PORTABLE <td>XR CHEST PORTABLE</td><t d>Routine</td><td>12/22/2020 7:57 AM EDT</td><td></td><td> </td> 12/22/2020 07:57:00 AM EDT [facility] BLOOD COUNT COMPLETE AUTOMATED <td>CBC</td><td>Timed</ td><td>12/22/2020 4:29 AM EDT</td><td></td><td> </td> 12/22/2020 04:29:00 AM EDT [facility] BASIC METABOLIC PANEL CALCIUM TOTAL <td>BASIC METABOLI C PANEL</td><td>Timed</td><td>12/22/2020 4:29 AM EDT</td><td></td><td> </td> 12/22/2020 04:29:00 AM EDT [facility] PROTHROMBIN TIME <td>PROTIME-INR</td><td>STAT </td><td>2020 4:26 PM EDT</td><td></td><td> </td> 2020 04:26:00 PM EDT [facility] BLOOD COUNT COMPLETE AUTOMATED <td>CBC</td><td>STAT</t d><td>2020 4:26 PM EDT</td><td></td><td> </td> 2020 04:26:00 PM EDT [facility] MAGNESIUM <td>MAGNESIUM</td><td>STAT</ td><td>2020 4:26 PM EDT</td><td></td><td> </td> 2020 04:26:00 PM EDT [facility] BASIC METABOLIC PANEL CALCIUM TOTAL <td>BASIC METABOLI C PANEL</td><td>STAT</td><td>2020 4:26 PM EDT</td><td></td><td> </td> 2020 04:26:00 PM EDT [facility] XR CHEST PORTABLE <td>XR CHEST PORTABLE</td><t d>STAT</td><td>2020 4:13 PM EDT</td><td></td><td> </td> 2020 04:13:18 PM EDT [facility] ECG ROUTINE ECG W/LEAST 12 LDS TRCG ONLY W/O I&R <td>E CG 12- LEAD</td><td>Routine</td><td>2020 3:49 PM EDT</td><td></td><td></td> 2020 03:49:16 PM EDT [facility] TRANSCATHETER AORTIC VALVE IMPLANT FEMORAL <td>TRANSCA THETER AORTIC VALVE IMPLANT FEMORAL</td><td>Routine</td><td>2020 3:28 PM EDT</td><td> Nonrheumatic aortic (valve) stenosis</td><td></td> 2020 03:28:00 PM EDT Nonrheumatic aortic (valve) stenosis [facility] Nonrheumatic aortic (valve) stenosis POC ARTERIAL BLOOD GAS W LYTES <td>POC ARTERIAL BLOOD GAS W LYTES</td><td>Routine</td><td>2020 3:20 PM EDT</td><td></td><td> </td> 2020 03:20:00 PM EDT [facility] POC ACT <td>POC ACT</td><td>Routine< /td><td>2020 3:19 PM EDT</td><td></td><td> </td> 2020 03:19:00 PM EDT [facility] POC ACT <td>POC ACT</td><td>Routine< /td><td>2020 2:43 PM EDT</td><td></td><td> </td> 2020 02:43:00 PM EDT [facility] POC ARTERIAL BLOOD GAS W LYTES <td>POC ARTERIAL BLOOD GAS W LYTES</td><td>Routine</td><td>2020 2:43 PM EDT</td><td></td><td> </td> 2020 02:43:00 PM EDT [facility] GLUC BLD GLUC MNTR DEV CLEARED FDA SPEC HOME USE <td>P OCT GLUCOSE</td><td>Routine</td><td>2020 11:10 AM EDT</td><td></td><td> </td> 2020 11:10:00 AM EDT [facility] ROOM TEMP AB SCREEN <td>ROOM TEMP AB SCREEN</td> <td>STAT</td><td>2020 11:05 AM EDT</td><td></td><td> </td> 2020 11:05:00 AM EDT [facility] BLOOD TYPING ABO <td>TYPE AND SCREEN</td><td> STAT</td><td>2020 10:49 AM EDT</td><td></td><td> </td> 2020 10:49:00 AM EDT [facility] ECG TRANSESOPHAG R-T 2D W/PRB IMG ACQUISJ I&R <td>ECHO CARDIOGRAM TRANSESOPHAGEAL</td><td>Routine</td><td>2020 10:30 AM EDT</td><td></td><td> </td> 2020 10:30:20 AM EDT [facility] ECG ROUTINE ECG W/LEAST 12 LDS TRCG ONLY W/O I&R <td>E CG 12- LEAD</td><td>Routine</td><td>12/16/2020 11:19 AM EDT</td><td> Nonrheumatic aortic (valve) stenosis</td><td></td> 12/16/2020 11:19:12 AM EDT Nonrheumatic aortic (valve) stenosis [facility] Nonrheumatic aortic (valve) stenosis URNLS DIP STICK/TABLET RGNT AUTO W/O MICROSCOPY <td>UR INALYSIS W/O MICRO</td><td>Routine</td><td>12/16/2020 11:15 AM EDT</td><td> Nonrheumatic aortic (valve) stenosis</td><td> </td> 12/16/2020 11:15:00 AM EDT Nonrheumatic aortic (valve) stenosis [facility] Nonrheumatic aortic (valve) stenosis NT PRO BNP <td>NT PRO BNP</td><td>Routi ne</td><td>12/16/2020 10:45 AM EDT</td><td> Nonrheumatic aortic (valve) stenosis</td><td> </td> 12/16/2020 10:45:00 AM EDT Nonrheumatic aortic (valve) stenosis [facility] Nonrheumatic aortic (valve) stenosis THROMBOPLASTIN TIME PARTIAL PLASMA/WHOLE BLOOD <td>APTT</td><td>Routine</td><td>12/16/2020 10:45 AM EDT</td><td> Nonrheumatic aortic (valve) stenosis</td><td> </td> 12/16/2020 10:45:00 AM EDT Nonrheumatic aortic (valve) stenosis [facility] Nonrheumatic aortic (valve) stenosis PROTHROMBIN TIME <td>PROTIME-INR</td><td>Rout ine</td><td>12/16/2020 10:45 AM EDT</td><td> Nonrheumatic aortic (valve) stenosis</td><td> </td> 12/16/2020 10:45:00 AM EDT Nonrheumatic aortic (valve) stenosis [facility] Nonrheumatic aortic (valve) stenosis BLOOD COUNT COMPLETE AUTO&AUTO DIFRNTL WBC COUNT <td>C BC AND DIFFERENTIAL</td><td>Routine</td><td>12/16/2020 10:45 AM EDT</td><td> Nonrheumatic aortic (valve) stenosis</td><td> </td> 12/16/2020 10:45:00 AM EDT Nonrheumatic aortic (valve) stenosis [facility] Nonrheumatic aortic (valve) stenosis HEMOGLOBIN GLYCOSYLATED A1C <td>HEMOGLOBIN A1C</td><td>Routine</td><td>12/16/2020 10:45 AM EDT</td><td> Nonrheumatic aortic (valve) stenosis</td><td> </td> 12/16/2020 10:45:00 AM EDT Nonrheumatic aortic (valve) stenosis [facility] Nonrheumatic aortic (valve) stenosis COMPREHENSIVE METABOLIC PANEL <td>COMPREHENSIVE METABO LIC PANEL</td><td>Routine</td><td>12/16/2020 10:45 AM EDT</td><td> Nonrheumatic aortic (valve) stenosis</td><td> </td> 12/16/2020 10:45:00 AM EDT Nonrheumatic aortic (valve) stenosis [facility] Nonrheumatic aortic (valve) stenosis OFFICE OUTPATIENT NEW 45 MINUTES 12/01/2020 12:00:00 A M EDT [facility] ([facility], ) DUPLEX SCAN EXTRACRANIAL ART COMPL BI STUDY <td>US CAR OTID BILATERAL</td><td>Pending Discharge</td><td>11/21/2020 4:24 PM EDT</td><td></td><td> </td> 11/21/2020 04:24:20 PM EDT [facility] RADEX SPINE ENTIRE SURVEY STD ANTEROPOST&LAT [...] of breath on exertionNonrheumatic aortic valve stenosis [facility] Thrombocytopenia Acute deep vein thrombosis (DVT) of popl iteal vein of right lower extremity Hyperlipidemia, unspecified hyperlipidem ia type Essential hypertension Shortness of breath on exertion Nonrheumatic aortic valve stenosis ECG ROUTINE ECG W/LEAST 12 LDS TRCG ONLY W/O I&R <td>E CG 12- LEAD</td><td>Routine</td><td>11/21/2020 11:52 AM EDT</td><td></td><td></td> 11/21/2020 11:52:03 AM EDT [facility] ECG ROUTINE ECG W/LEAST 12 LDS W/I&R <td>POCT AMB EKG</td><td>Routine</td><td>07/13/2020 5:45 PM EDT</td><td> Nonrheumatic aortic valve stenosis Essential hypertension</td><td> </td> 07/13/2020 05:45:00 PM EDT Essential hypertensionNonrheumatic aortic valve stenos is [facility] Essential hypertension Nonrheumatic aortic valve stenosis BLOOD COUNT COMPLETE AUTO&AUTO DIFRNTL WBC COUNT <td>C BC AND DIFFERENTIAL</td><td>Routine</td><td>03/24/2020</td><td></td><td> </td> 03/24/2020 12:00:00 AM EST [facility] HEPATIC FUNCTION PANEL <td>HEPATIC FUNCTION PANEL</td><td>Routine</td><td>03/24/2020</td><td></td><td> </td> 03/24/2020 12:00:00 AM EST [facility] BASIC METABOLIC PANEL CALCIUM TOTAL <td>BASIC METABOLI C PANEL</td><td>Routine</td><td>03/24/2020</td><td></td><td> </td> 03/24/2020 12:00:00 AM EST [facility] Results ID Date Data Source [id number] 12/22/2020 10:50:50 AM [facility]T [facility] INFORMATIONPatient MRN Name Date of Age Gend*PT [id number] Elizabeth Lawrence 1935 85 years F IPPT Location Admission Date/Time Visit ID Attending [id number] 12/21/20 1027 --- Saad Villareal MD([id number]) EPI ID CSN Admitting Provider [id number] Saad Villareal MD([id number])DISCHARGE SUMMARYAdmission Date: 2020ischarge date: 12/22/20PRINCIPAL DIAGNOSIS: Severe aortic stenosis post successful TAVRCURRENT [id number] woman with severe aortic stenosis and shortness [...] Get Your MedicationsThese medications were sent to [id number] AT [facility] & [address] [address] amoxicillin 500 MG capsule clopidogrel 75 MG tabletSignature: Saad Villareal, MDDate: December 22, 2020Time: 10:45 [facility]: Dr. Maldonado document or parts of this document, were dic tated using Skemaz software. A reasonable attempt at proofreading has been made tominimize errors. Please call with any questions or corrections. Name Value Range Interpretation Code Description Data Berkley rce(s) Supporting Document(s) ID Date Data Source [id number] 12/22/2020 10:11:20 AM EDT [facility] Name Value Range Interpretation Code Description Data Berkley rce(s) Supporting Document(s) &PDF [facility] ZBXDHi5qBiSEAbGr21/VWKgfJIUbi0KnRZinSYf1KIncVAHnR6QiuRccGA7MF94GVTvGQIYBOT1TTHZc 0b3 [file] x1yYMjyPP8l/SP2zpyVlCgYBbvf+arSXtBJWtENiToFLmF1Nz1+Juan Francisco+yWyo5zwxycCzONAanEXrZVFkM [file] ICAgICAgICAgICAgICAgICAgICAgICAgICAgICAgIC AgICAgICAgICAgICAgICAgICAgICAgICAgICAgICAgICAgICAgICAgICAgICAgICAgICAgICAgICAgIC ANCiAgICAgICAgICAgICAgICAgICAgICAgICAgICAgICAgICAgICAgICAgICAgICAgICAgICAgICAgIC AgICAgICAgICAgICAgICAgICAgICAgICAgICAgICAg ICAgICAgICAgICANCiAgICAgICAgICAgICAgICAgICAgICAgICAgICAgICAgICAgICAgICAgICAgICAg ICAgICAgICAgICAgICAgICAgICAgICAgICAgICAgICAgICAgICAgICAgICAgICAgICAgICANCiAgICAg ICAgICAgICAgICAgICAgICAgICAgICAgICAgICAgIC AgICAgICAgICAgICAgICAgICAgICAgICAgICAgICAgICAgICAgICAgICAgICAgICAgICAgICAgICAgIC AgICANCiAgICAgICAgICAgICAgICAgICAgICAgICAgICAgICAgICAgICAgICAgICAgICAgICAgICAgIC AgICAgICAgICAgICAgICAgICAgICAgICAgICAgICAg ICAgICAgICAgICAgICANCiAgICAgICAgICAgICAgICAgICAgICAgICAgICAgICAgICAgICAgICAgICAg ICAgICAgICAgICAgICAgICAgICAgICAgICAgICAgICAgICAgICAgICAgICAgICAgICAgICAgICANCiAg ICAgICAgICAgICAgICAgICAgICAgICAgICAgICAgIC AgICAgICAgICAgICAgICAgICAgICAgICAgICAgICAgICAgICAgICAgICAgICAgICAgICAgICAgICAgIC AgICAgICANCiAgICAgICAgICAgICAgICAgICAgICAgICAgICAgICAgICAgICAgICAgICAgICAgICAgIC AgICAgICAgICAgICAgICAgICAgICAgICAgICAgICAg ICAgICAgICAgICAgICAgICANCiAgICAgICAgICAgICAgICAgICAgICAgICAgICAgICAgICAgICAgICAg ICAgICAgICAgICAgICAgICAgICAgICAgICAgICAgICAgICAgICAgICAgICAgICAgICAgICAgICAgICAN CiAgICAgICAgICAgICAgICAgICAgICAgICAgICAgIC AgICAgICAgICAgICAgICAgICAgICAgICAgICAgICAgICAgICAgICAgICAgICAgICAgICAgICAgICAgIC AgICAgICAgICANCjw/bTTlA6mbhAVluzS5J1amWz0WPs9LOE5zl2KiKHMkPYtbhkHkBubFGnUcAHVeUo aWMsh9FIkvHD7PwDBeT2VjA8DjSHfnNU1LYGEoWGDw nCPuLHKdBFTySlZ5PFRzUEzbOQ5TvTKdFJupQJTsJCDmMhCoXOOfURVrQZVzVUQfWIVDWK5MXcCeN9Ks nR52UFHELl4+DAmkgkKoOfaIPrK6FADui2TnNPa1EP8BBHZuSAkgEU3JADOddQ0oVXquZE1RSxHwFcGv VOINFoAkX18huZQgDKb2O9UuOnYaTUCxUxusMWRkES wvTmFtZXMgWyBdDQogID4+ID4+OYqsQY6TLNxznoClZMSpMd2VROCsKWN0XSDtfSWeHoXqPOASVWofOB 4VvAFeKQY8tV0hAVekTXThMKRiM2pSHyQcdXtgZU43iSxzzkAeqEHiESl+Wa8YJO4pg7FjVIh3rbMoXE dkNJS3GFxfPKVjDRVsEMNoRXN7ZPY1BOSCMqGiZPAn ETQgCUrqYCDdLRZrgi4OVHXxJDGoExT0HqToVCTfOANpVFiqPJIsOHF1BrZlVLFaVVPeQU9CPpRfEBWn CEGdZCJhPYTyHSKpiu1UZUJnJSCoDxFzWPQkZPMlFNBaDJsjTLPxASOcYsBrYXFrFGLeMD3YNhNqMANe KFNbCAifFQMtFRWbud4LZDIhOMGaJIM5MtSrDROxZV CoIPhpBKTiLAN2YWNpJMImBXTtKA2UPwBxBKDqSGh4AtYbDWKiXXZaep6OFLCxAQQlZTf9TZBmFPSgKO DeQAkzNFZyJXD6AGVtXBYnTJJhNA5MUnTgRCEkMZt8WsWzGDQtUADsyt7TGATwVGGrLBQpHYHbITYiWS AyFBykJPFuTRHeRbPeQHYdNWCfUH5UEgDxBXMvZHAd GiZcQAPuBTUspr7IKTQsLPMcHPM7AqHxPYTdFAFyXHfxTUPeWUXvGtIoNMXcPYLlIS6FNuVcGPVaGUO4 UJefZYWxZDCxkx1EEZHuTVKwXncxLaEtPQGsPBZuLCfgPIXpPEEoOAiiPPUbIGFfXT8TKoMzPAIiTWxr DALkRZGjUBDteb4ITERxTLVfMnMeTUDwCYGhYZInFD eiNGXvANVbDAChXWIqLLMcIL8IAmXlIIEcMjFmKBpwHETeJZXzjf3MzWMthNgrah6QNCaSXy3YrYchIX I1LWxvGs4xkQDoQQDxJUXNJb0SdwDsAEXdBOQMJQijLHHgRBjoVwL2ByL7FOJsLlBwCGHgB1S1OEF2Qp urDvOuKeG5PyZ1RpSmOAoiJLzkSdR7LyWzNLD7Dwhk IuC8GkWzQWNyALp+HC5yEFo+Ds2He7KywpD0mhYuNCdzHYWrKl3EJLAJU6VPJw== ID Date Data Source [id number] 12/22/2020 08:50:59 AM EDT [address] [address]X[place] Name: ELIZABETH LAWRENCEDOB: 1935Sex: FOrdering Provider: OPHELIA GARCÍAAuthorizing Prov: OPHELIA GARCÍAReferrlima Provider: Procedure Performed: / XR CHEST PORTABLEExam Date: 12/22/2020 07:57MRN: [id number] Number: [id number] Class: InpatientAccount #: [id number] for Exam: mild CHF post TAVRTechnique: AP portable view obtained.Comparison: 2020Findings: TAVR in place. Single lead pacer unchanged position. Improved aeration both lungs compatible with resolved edema. Blunting both costophrenic angles likely tiny effusions.IMPRESSION: Resolved edema.Report electronically signed by: MARYSOL CHRISTIAN On 12/22/2020 8:50 AMWorkstation ID: [id number] - [id number] Name Value Range Interpretation Code Description Data Berkley rce(s) Supporting Document(s) ID Date Data Source [id number] 12/22/2020 06:19:20 AM EDT [facility] Name Value Range Interpretation Code Description Data Berkley rce(s) Supporting Document(s) SODIUM 144 mmol/L (136-145) [facility] POTASSIUM 4.4 mmol/L (3.6-5.2) [facility] CHLORIDE 113 mmol/L (100-108) H [facility] CO2 26 mmol/L (22-31) [facility] ANION GAP 5 mmol/L (7-16) L [facility] UREA NITROGEN 20 mg/dL (7-24) [facility] CREATININE 0.95 mg/dL (0.60-1.00) [facility] BUN/CREAT RATIO 21.1 RATIO (10.0-20.0) H [facility] GLUCOSE 123 mg/dL (70-99) H [facility] CALCIUM 7.5 mg/dL (8.4-10.2) L [facility] GFR 56 ml/min/1.73m2 (>59) L [facility] GFR ( AMER) >60 ml/min/1.73m2 (>59) [facility] GFR INTERPRETATION [facility] --NORMAL KIDNEY FUNCTION OR MILD DISEASE - GFR >OR= 60CHRONIC KIDNEY DISEASE - GFR 15 - 59RENAL FAILURE - GFR <15 Est. GFR calculation based on the MDRDstudy equation, which assumes a steadystate for creatinine. Est. GFR should notbe used for medication dosing. ID Date Data Source [id number] 12/22/2020 05:50:49 AM EDT [facility] Name Value Range Interpretation Code Description Data Berkley rce(s) Supporting Document(s) WBC 2.1 10*3/uL (4.1-11.0) L [facility] RBC 2.47 10*6/uL (4.00-5.40) L [facility] HGB 8.4 g/dL (12.0-16.0) L [facility] HCT 25.2 % (36.0-47.0) L [facility] MCV 102.3 fL (80.0-95.0) H [facility] MCH 34.2 pg (27.0-32.0) H [facility] MCHC 33.4 g/dL (32.0-36.0) [facility] RDW 22.8 % (10.5-14.5) H [facility] PLT 152 10*3/uL (150-450) [facility] MPV 9.7 fL (7.1-10.7) [facility] ID Date Data Source [id number] 2020 04:32:25 PM EDT [facility] Name Value Range Interpretation Code Description Data Berkley rce(s) Supporting Document(s) EKG [facility] HXJUZe2zSfCGNxIhl1PnKoPbHHIaTZ3pihm6M5Z0mXRnQ1RctOLwa1ymU3GiO1TpWJMjTGIPFU3XxRTo jb2 [file] R4gxs3YFFYCFvyM+CGdAGsD4oXsxQ4J+OSgHZj5bNsLNvhJPx75G8btv4MMxuLJHJPc0i0ZVWWb6+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 [file] [id number]+JsfipVNhgUgrLQNOEOV9CPiMECATE1P= ID Date Data Source [id number] 2020 04:25:28 PM EDT [address] [address]Vtldpvk Name: ELIZABETH LAWRENCEDOB: 1935Sex: FOrdering Provider: SAAD VILLAREALAuthoriofe Prov: SAAD HINTONALLYReferring Provider: Procedure Performed: / XR CHEST PORTABLEExam Date: 2020 16:13MRN: [id number] Number: [id number] Class: InpatientAccount #: [id number] for Exam: Post TAVR procedureTechnique: AP portable [...] ALBER BRENNAN On 2020 4:25 PMWorkstation ID: [id number] - [id number] Name Value Range Interpretation Code Description Data Berkley rce(s) Supporting Document(s) ID Date Data Source [id number] 2020 06:13:03 PM EDT [facility] kathleen YANEZ Name Value Range Interpretation Code Description Data Berkley rce(s) Supporting Document(s) MAGNESIUM 2.0 mg/dL (1.7-2.4) [facility] [place] [facility] ID Date Data Source [id number] 2020 06:13:03 PM EDT [facility] [place] [facility] Name Value Range Interpretation Code Description Data Berkley rce(s) Supporting Document(s) SODIUM 141 mmol/L (136-145) [facility] [place] [facility] POTASSIUM 4.0 mmol/L (3.6-5.2) [facility] [place] [facility] CHLORIDE 110 mmol/L (100-108) H [facility] [place] [facility] CO2 25 mmol/L (22-31) [facility] [place] [facility] ANION GAP 6 mmol/L (7-16) L [facility] [place] [facility] UREA NITROGEN 21 mg/dL (7-24) [facility] [place] [facility] CREATININE 0.88 mg/dL (0.60-1.00) [facility] [place] [facility] BUN/CREAT RATIO 23.9 RATIO (10.0-20.0) H [facility] GLUCOSE 131 mg/dL (70-99) H [facility] [place] [facility] CALCIUM 7.6 mg/dL (8.4-10.2) L [facility] [place] [facility] GFR >60 ml/min/1.73m2 (>59) [facility] [place] [facility] GFR ( AMER) >60 ml/min/1.73m2 (>59) [facility] [place] [facility] GFR INTERPRETATION [facility] --NORMAL KIDNEY FUNCTION OR MILD DISEASE - GFR >OR= 60CHRONIC KIDNEY DISEASE - GFR 15 - 59RENAL FAILURE - GFR <15 Est. GFR calculation based on the MDRDstudy equation, which assumes a steadystate for creatinine. Est. GFR should notbe used for medication dosing. ID Date Data Source [id number] 2020 06:05:31 PM EDT [facility] [place] [facility] Name Value Range Interpretation Code Description Data Berkley rce(s) Supporting Document(s) PT 11.9 s (9.2-11.9) [facility] [place] [facility] INR 1.13 [facility] [place] [facility] SUGGESTED THERAPEUTIC RANGES USING INR F ORSTABILIZED ANTICOAGULATED PATIENTS:STANDARD DOSE THERAPY INR 2.0-3.0 DVT, PE, PREVENT DVT OR EMBOLISMHIGH DOSE THERAPY INR 2.5-3.5 PREVENT EMBOLISM FROM MECHANICAL HEART VALVE ID Date Data Source [id number] 2020 05:47:18 PM EDT [facility] Name Value Range Interpretation Code Description Data Berkley rce(s) Supporting Document(s) WBC 2.7 10*3/uL (4.1-11.0) L [facility] [facility] [place] RBC 2.57 10*6/uL (4.00-5.40) L [facility] HGB 8.8 g/dL (12.0-16.0) L [facility] HCT 26.1 % (36.0-47.0) L [facility] MCV 101.6 fL (80.0-95.0) H [facility] MCH 34.3 pg (27.0-32.0) H [facility] MCHC 33.7 g/dL (32.0-36.0) [facility] RDW 22.5 % (10.5-14.5) H [facility] PLT 155 10*3/uL (150-450) [facility] MPV 9.8 fL (7.1-10.7) [facility] ID Date Data Source [id number] 2020 03:54:23 PM EDT [facility] Name Value Range Interpretation Code Description Data Berkley rce(s) Supporting Document(s) &PDF [facility] FMVJDz5sZlQFHfXh99/GVSklBOEls5BqZUlbLHm9WMfvLTYqQ7AzjMniNT9LH53JNZdYVJMOLI3ERKZz 0b3 [file] AgICAgICAgICAgICAgICAgICAgICAgICAgICAgICAg ICAgICAgICAgICAgICAgICAgDQogICAgICAgICAgICAgICAgICAgICAgICAgICAgICAgICAgICAgICAg ICAgICAgICAgICAgICAgICAgICAgICAgICAgICAgICAgICAgICAgICAgICAgICAgICAgICAgICAgICAg DQogICAgICAgICAgICAgICAgICAgICAgICAgICAgIC AgICAgICAgICAgICAgICAgICAgICAgICAgICAgICAgICAgICAgICAgICAgICAgICAgICAgICAgICAgIC AgICAgICAgICAgDQogICAgICAgICAgICAgICAgICAgICAgICAgICAgICAgICAgICAgICAgICAgICAgIC AgICAgICAgICAgICAgICAgICAgICAgICAgICAgICAg ICAgICAgICAgICAgICAgICAgICAgDQogICAgICAgICAgICAgICAgICAgICAgICAgICAgICAgICAgICAg ICAgICAgICAgICAgICAgICAgICAgICAgICAgICAgICAgICAgICAgICAgICAgICAgICAgICAgICAgICAg ICAgDQogICAgICAgICAgICAgICAgICAgICAgICAgIC AgICAgICAgICAgICAgICAgICAgICAgICAgICAgICAgICAgICAgICAgICAgICAgICAgICAgICAgICAgIC AgICAgICAgICAgICAgDQogICAgICAgICAgICAgICAgICAgICAgICAgICAgICAgICAgICAgICAgICAgIC AgICAgICAgICAgICAgICAgICAgICAgICAgICAgICAg ICAgICAgICAgICAgICAgICAgICAgICAgDQogICAgICAgICAgICAgICAgICAgICAgICAgICAgICAgICAg ICAgICAgICAgICAgICAgICAgICAgICAgICAgICAgICAgICAgICAgICAgICAgICAgICAgICAgICAgICAg ICAgICAgDQogICAgICAgICAgICAgICAgICAgICAgIC AgICAgICAgICAgICAgICAgICAgICAgICAgICAgICAgICAgICAgICAgICAgICAgICAgICAgICAgICAgIC AgICAgICAgICAgICAgICAgDQogICAgICAgICAgICAgICAgICAgICAgICAgICAgICAgICAgICAgICAgIC AgICAgICAgICAgICAgICAgICAgICAgICAgICAgICAg YDEiZDQhUXHcLPAfVEVkHLYvSFKvTLRcIGHpZTq8B6luMEQkWJOsEJ0mIXq3Yv0+IJbZIaQwYXV0ivTi gF9QMP5lm0QjOYspIDZno3QlAAj7BM1ZNOVjGMmfXX3TLIcfmv1MNDKpDDGidERSl0qaWhSbRYW3VNNj CyzfAF3FPFIgB5trvwQtXYIzMBLXTBkqEBVCQG2WQv KeL7MonU89QFBHNa4+LVxcqlGsDbjDNhMaZOMaw0NbICm1BA2STCDjAIrqPJ5GISTbzX7gDMrxGM3EGh MaWBKdOLVMRlCcG49ujZRgTYr5M7CeOpPhFKGgUenmIEOcRXaqTgCfSSDvRcCnTIkxNF3+ID4+DQogIC 8KLBxdgsNxCSMwAe2JLGLzWHV2SQLlkTUaYuJcRWOS CYwdZH2CdXMrWPV0gG2sWMdxPZCfXMCtL9hNQtPewBvdBL50pCutpeWkaDVsBYy+Nn8DML2es7DjTHo6 rmPaWHngFWUsIOaoTDJjFOAqGWNoCRM7IQW9EKOJUwBuKNNoGUUuVQxwDQErDHPkuq4SJHPsUZIxFiQr NkFtJYLfABFjFHeeXDVqRVE9VgBpCIHvMDBbCE9PLe JuOYMhCYEkITVoVECzWGMeqc3JBSRsUFXmFhZnTRPwSXFnJGMkGHpiIWHaWFEcFeO5OGSkZQLkYR2HNi SnPHNyEAO0ALukTFRoKARmit0IFKIeLKIiVfJmLFLpMBAgKBEmEUboORAyOCDbJUlaDNUjSZIkTH8UOv NsAFOgSMDuWyRyCVBrPSXaek7XHWJjAXJaRKJ5DnAq PCAgXKPtEXthLZAvZCB3ThY8PKAdMZFoWM0NCjPmUIHaBIH3MJojJNCiEZDqco1CUIMwCMJrEPK0JkUu SPAtCKQcMTmuGEFpPKT2ZsI7DUAsFCWjTI8XGfGjDWJgDUJ7SWGpYXTcOCFiea8IPQDtGSBiZuA6LPWu JUBsTQSfTDbfBDUpZRXfXGT5XVSzAJCqFO1RUbEqGQ PrBET9MQXfKTCxICAzzz6TLWPxYSRmHxeeKVSsCYEmXMKlJTmiPLDcSYD4HjW6DOXuRXLjBD7BUvTgMW pyALWLYuh2XIoxD3h5IVGvOw7ZA0Lue7MhPsKgIMFJQSsnAC8tycRbRVQqGv1FC6wTZii5QoM7QLMnYM trCmUzHDN1EQfyDoHoB5ZuMnSeEZHaOC0wOUTrUuF3 EsUsMXA5CFP8ImN3YUMoEXSsQGR1NRXzIuZ5OkMuQQ7NXh4QViK3ZBK4lRUmVv5LSQi5SEZNWnMzVB6A DQo= ID Date Data Source [id number] 2020 03:43:12 PM EDT [facility] NT INFORMATIONPatient MRN Name Date of Age Gend*PT [id number] Elizabeth Lawrence 1935 85 years F IPPT Location Admission Date/Time Visit ID Attending [id number] 12/21/20 1027 --- Saad Villareal MD([id number]) EPI ID CSN Admitting Provider [id number] Saad Villareal MD([id number])TAVR (Transcatheter Aortic Valve Replacement)Patient Name: Elizabeth LawrenceMedical Record No: [id number] of : 1935 Age 85 yearsPrimary Physician: CHITO BOWDEN MD PCP Obpo of Surgery: 2020Interventional Shipsmith: Saad Villareal MDHeart Valve Team: Dr. Green [...] upsizedover a Lunderquist wire to a 14 Kazakh Alva sheath. We then advanced a 23 [...] Access: Closed4. Pacemaker: Backup5. Anticoagulation: PlavixSignature: Saad Villareal, MDDate: 2020Time: 3:35 [facility]: Dr. Maldonado document or parts of this document, were dictated using [employer]. A reasonable attempt at proofreading has been made to minimize errors.Please call with any questions or corrections. Name Value Range Interpretation Code Description Data Berkley e(s) Supporting Document(s) ID Date Data Source [id number] 2020 03:25:01 PM EDT [facility] [place] [facility] Name Value Range Interpretation Code Description Data [facility](s) Supporting Document(s) POC SOURCE [facility] [place] [facility] CP BYPASS [facility] POC PH 7.43 pH (7.35-7.45) [facility] POC PCO2 42.5 MMHG (32.0-48.0) [facility] POC PO2 552 MMHG (83-108) H [facility] POC SAT O2 100 % (95-99) H [facility] [place] [facility] BASE EXCESS 3 MMOL/L (0-3) [facility] [place] [facility] POC HCO3 28.0 MMOL/L (21.0-29.0) [facility] POC TOTAL CO2 29 MMOL/L (23.0-32.0) [facility] [place] [facility] PERFORMED BY [facility] CLINICAL STAFF POC HCT 23 % (36.0-47.0) L [facility] [place] [facility] POC SODIUM 137 MMOL/L (136-145) [facility] POC POTASSIUM 3.8 MMOL/L (3.6-5.2) [facility] POC IONIZED CALCIUM 4.5 MG/DL (4.6-5.3) L [facility] [place] POC GLU 105 MG/DL (70-99) H [facility] [place] [facility] PERFORM LAB [facility] [place] [facility] ID Date Data Source [id number] 2020 03:28:13 PM EDT [facility] Name Value Range Interpretation Code Description Data Berkley rce(s) Supporting Document(s) POC ACT 263 s (80-140) H [facility] [place] [facility] PERFORMED BY [facility] CLINICAL STAFF ID Date Data Source [id number] 2020 03:03:23 PM EDT [facility] NT INFORMATIONPatient MRN Name Date of Age Gend*PT [id number] Elizabeth Lawrence 1935 85 years F SDAPT Location Admission Date/Time Visit ID Attending Provider --- --- --- --- EPI ID CSN Admitting Provider [id number] ---Introducer AdditionsPatient location during procedure: CV hybrid [...] changes to vital signs and catheter flushed [id number] NS Name Value Range Interpretation Code Description Data Berkley rce(s) Supporting Document(s) ID Date Data Source [id number] 2020 03:03:03 PM EDT [facility] NT INFORMATIONPatient MRN Name Date of Age Gend*PT [id number] Elizabeth Lawrence 1935 85 years F SDAPT Location Admission Date/Time Visit ID Attending Provider --- --- --- --- EPI ID CSN Admitting Provider [id number] ---Central Line InsertionPatient location during procedure: CV [...] changes to vital signs and catheter flushed [id number] NS Name Value Range Interpretation Code Description Data Berkley rce(s) Supporting Document(s) ID Date Data Source [id number] 2020 02:46:44 PM EDT [facility] NT INFORMATIONPatient MRN Name Date of Age Gend*PT [id number] Elizabeth Lawrence 1935 85 years F SDAPT Location Admission Date/Time Visit ID Attending Provider --- --- --- --- EPI ID CSN Admitting Provider [id number] ---Arterial Line PlacementPatient location during procedure: ORIndications [...] Code Description Data Berkely rce(s) Supporting Document(s) ID Date Data Source [id number] 2020 02:46:13 PM EDT [facility] NT INFORMATIONPatient MRN Name Date of Age Gend*PT [id number] Clementine Elizabeth C 1935 85 years F SDAPT Location Admission Date/Time Visit ID Attending Provider --- --- --- --- EPI ID CSN Admitting Provider [id number] ---AirwayPatient location during procedure: ORUrgency: electiveDifficult airway: [...] cmPlacement verified by: chest auscultation and + [id number]: CTA and equal breath sounds bilateralGrade view: grade IIa - partial view of glottis Name Value Range Interpretation Code Description Data Berkley rce(s) Supporting Document(s) ID Date Data Source [id number] 2020 03:28:13 PM EDT [facility] Name Value Range Interpretation Code Description Data Berkley rce(s) Supporting Document(s) POC ACT 142 s (80-140) H [facility] [place] [facility] PERFORMED BY [facility] CLINICAL STAFF ID Date Data Source [id number] 2020 02:48:57 PM EDT [facility] [facility] Name Value Range Interpretation Code Description Data Berkley rce(s) Supporting Document(s) POC SOURCE [facility] [place] [facility] CP BYPASS [facility] POC PH 7.34 pH (7.35-7.45) L [facility] [place] [facility] POC PCO2 52.8 MMHG (32.0-48.0) H [facility] [place] [facility] POC PO2 476 MMHG (83-108) H [facility] [place] [facility] POC SAT O2 100 % (95-99) H [facility] [place] [facility] POC BASE EXCESS 2 MMOL/L (0-3) [facility] [place] [facility] POC HCO3 28.2 MMOL/L (21.0-29.0) [facility] [place] [facility] POC TOTAL CO2 30 MMOL/L (23.0-32.0) [facility] [place] [facility] BY [facility] CLINICAL STAFF POC HCT 26 % (36.0-47.0) L [facility] [place] [facility] POC SODIUM 142 MMOL/L (136-145) [facility] [facility] POC POTASSIUM 3.9 MMOL/L (3.6-5.2) [facility] POC IONIZED CALCIUM 4.8 MG/DL (4.6-5.3) [facility] POC GLU 106 MG/DL (70-99) H [facility] [place] [facility] PERFORM LAB [facility] [place] [facility] ID Date Data Source [id number] 2020 11:12:27 AM EDT [facility] [place] [facility] Name Value Range Interpretation Code Description Data Berkley rce(s) Supporting Document(s) POC NOVA GLU 104 mg/dL (70-99) H [facility] [place] [facility] [place] [facility]FOR[facility] BY [facility] CLINICAL STAFF ID Date Data Source [id number] 2020 02:28:49 PM EDT [facility] [place] [facility] Name Value Range Interpretation Code Description Data Berkley rce(s) Supporting Document(s) ROOM TEMP AB SCREEN [facility] ROOM TEMP AB SCREEN NEGATIVE ID Date Data Source [id number] 12/22/2020 10:31:34 AM EDT [facility] [place] [facility] SPEC EXP DATE 12/24/2020ATI ENT ABO/Rh O NEGATIVEANTIBODY SCREEN NEGATIVETESTING SITE PERFORMED AT [address] [place] [address] A[place] [address]QYMQ NUMBER [id number] COMPONENT TYPE LEUKOPOOR RED CELLSUNIT DIVISION 00STATUS OF UNIT REL FROM ALLOCTRANSFUSION STATUS OK TO TRANSFUSECROSSMATCH RESULT COMPATIBLEUNIT NUMBER [id number] COMPONENT TYPE LEUKOPOOR RED CELLSUNIT DIVISION 00STATUS OF UNIT REL FROM ALLOCTRANSFUSION STATUS OK TO TRANSFUSECROSSMATCH RESULT COMPATIBLE Name Value Range Interpretation Code Description Data Berkley rce(s) Supporting Document(s) TYPE AND SCREEN [facility] [place] [facility] ID Date Data Source [id number] 12/16/2020 02:26:40 PM EDT [facility] NT INFORMATIONPatient MRN Name Date of Age Gend*PT [id number] Elizabeth Lawrence 1935 84 years F OPPT Location Admission Date/Time Visit ID Attending Provider --- --- --- Saad Villareal MD([id number]) EPI ID CSN Admitting Provider [id number] ---HISTORY PHYSICALName: Elizabeth Lawrence : 1935 Sex: [...] N/A; COLONOSCOPY HIP FRACTURE SURGERY Right 03/2019 [facility] HYSTERECTOMY PANENDOSCOPYALLERGIES: No Known Drug AllergiesMEDICATIONS:Current [...] warm and dry.HEENT: She is normocephalic, atraumatic. [place] conjunctivae. Anicteric sclerae.Pupils are equal, round, reactive [...] hepatosplenomegaly. Negative CVAT.GENITAL/RECTAL: Deferred.MUSCLE/SKELETAL: Strength is 5/5. Field Staff Manager are equal.NEUROLOGICALLY: Cranial nerves II through XII are grossly intact.VASCULAR: Pulses are symmetrical. Minimal peripheral edema.Anesthesia complications: NoneSteroid use: [facility] Fra[facility] :: 4/10 Vulnerable (while not [...] parts of this document, were dictated using Teklatech software. A reasonable attempt at proofreading has beenmade to minimize errors. Please call with any questions or corrections. Name Value Range Interpretation Code Description Data Berkley rce(s) Supporting Document(s) ID Date Data Source [id number] 12/16/2020 12:06:38 PM EDT [facility] Name Value Range Interpretation Code Description Data Berkley rce(s) Supporting Document(s) EKG [facility] DGWRUj5iJaISArIzm0EnWwPwMNMtOM0riwa4P6C9mNWbJ4KwxPYzv2tjZ3VrJ7EqFISgJVUKPH8TqNSi jb2 [file] Gómez+osOhwHc81++4Y3S5K4dqXjmC7KR/rzyG2sSG5W6a+wGOmshCpF1pB583wE1uEqnexN6pQ+qqp3HM [file] MrOtZZU1fsXy5zIzCmMXKVM8Jew2QnPPQzGTOJYg1+ObI6UNA8iMSvNdr2Jza6YRxhIWYNVn== ID Date Data Source [id number] 12/17/2020 10:50:09 AM EDT [facility] [place] [facility] SPECIMEN DESCRIPTION MIDSTREAM UR INE,CLEAN CATCHCULTURE RESULTS NO GROWTHREPORT STATUS FINAL 12/17/2020 Name Value Range Interpretation Code Description Data Berkley rce(s) Supporting Document(s) ID Date Data Source [id number] 12/16/2020 02:29:25 PM EDT [facility] [facility] Name Value Range Interpretation Code Description Data Berkley rce(s) Supporting Document(s) COLOR [facility] [place] [facility] APPEARANCE [facility] [place] [facility] SPEC GRAV URINE 1.012 (1.003-1.030) [facility] PH URINE 5.0 (5.0-7.5) [facility] [place] [facility] LEUK ESTERASE (NEG) [facility] [place] [facility] NITRITE URINE (NEG) [facility] [place] [facility] PROTEIN URINE (NEG) [facility] [place] [facility] GLUCOSE URINE (NEG) [facility] [place] [facility] KETONE URINE (NEG) [facility] [place] [facility] [place] UROBILINOGEN 0.2 mg/dL (0-1.0) [facility] [place] [facility] [place] BILIRUBIN URINE (NEG) [facility] [place] [facility] BLOOD/HGB URINE (NEG) [facility] [place] [facility] ID Date Data Source [id number] 12/17/2020 10:55:41 AM EDT [facility] Name Value Range Interpretation Code Description Data Berkley rce(s) Supporting Document(s) SPECIMEN DESCRIPTION [facility] STAPH SCREEN RESULTS (ONEGSA) [facility] COMMENT [facility] [place] [facility] GENE TO DETECT STAPH AUREUS. (2) RT-P CR WAS PERFORMED FOR THE mecA AND SCCmec GENES TO DETECT METHICILLIN RESISTANCE IN STAPH AUREUS. ID Date Data Source [id number] 12/19/2020 06:55:08 PM EDT [facility] Name Value Range Interpretation Code Description Data Berkley rce(s) Supporting Document(s) WBC 2.7 10*3/uL (4.1-11.0) L [facility] [place] [facility] [place] RBC 3.01 10*6/uL (4.00-5.40) L [facility] [place] [facility] HGB 10.3 g/dL (12.0-16.0) L [facility] [place] [facility] HCT 30.5 % (36.0-47.0) L [facility] [place] [facility] MCV 101.4 fL (80.0-95.0) H [facility] [place] [facility] MCH 34.2 pg (27.0-32.0) H [facility] [place] [facility] MCHC 33.7 g/dL (32.0-36.0) [facility] [place] [facility] RDW 22.9 % (10.5-14.5) H [facility] [place] [facility] PLT 166 10*3/uL (150-450) [facility] [place] [facility] MPV 9.8 fL (7.1-10.7) [facility] [place] [facility] NEUT % 52.0 % (35.0-75.0) [facility] [place] [facility] LYMPH % 33.0 % (16.0-52.0) [facility] [place] [facility] ATYP LYMPH % 1.0 % (0.0-5.0) [facility] [place] [facility] [place] MONO % 6.0 % (0.0-8.0) [facility] [place] [facility] EOS % 8.0 % (0.0-5.0) H [facility] [place] [facility] NEUT # 1.4 10*3/uL (1.8-7.7) L [facility] [place] [facility] LYMPH # 0.9 10*3/uL (1.2-4.8) L [facility] [place] [facility] ATYP LYMPH # 0.0 10*3/uL [facility] [place] [facility] MONO # 0.2 10*3/uL (0.0-0.8) [facility] [place] [facility] Eosinophils [#/volume] in Blood by Automated count 0.2 10*3/uL (0.0-0 .5) [facility] [place] [facility] DOHLE BODIES 1+ [facility] [place] [facility] [place] ANISO 2+ [facility] [place] [facility] POIK 1+ [facility] [place] [facility] MACRO 1+ [facility] [place] [facility] LARGE PLT 1+ [facility] [place] [facility] DIFF COMMENT [facility] [place] [facility] [place] PATHOLOGIST COMM [facility] [place] [facility] HYPOGRANULAR NEUTROPHILS. DR VALADEZ [id number] PERFORMED AT [address] [place] [address] ID Date Data Source [id number] 12/16/2020 02:42:20 PM EDT [facility] [place] [facility] Name Value Range Interpretation Code Description Data Berkley rce(s) Supporting Document(s) APTT 27.4 s (22.0-34.3) [facility] [place] [facility] ID Date Data Source [id number] 12/16/2020 02:42:20 PM EDT [facility] [place] [facility] Name Value Range Interpretation Code Description Data Berkley rce(s) Supporting Document(s) PT 10.9 s (9.2-11.9) [facility] [place] [facility] INR 1.02 [facility] [place] [facility] SUGGESTED THERAPEUTIC RANGES USING INR F ORSTABILIZED ANTICOAGULATED PATIENTS:STANDARD DOSE THERAPY INR 2.0-3.0 DVT, PE, PREVENT DVT OR EMBOLISMHIGH DOSE THERAPY INR 2.5-3.5 PREVENT EMBOLISM FROM MECHANICAL HEART VALVE ID Date Data Source [id number] 12/16/2020 02:34:14 PM EDT [facility] [place] [facility] Name Value Range Interpretation Code Description Data Berkley rce(s) Supporting Document(s) NT PRO BNP 1454 pg/mL (0-450) H [facility] [place] [facility] ID Date Data Source [id number] 12/16/2020 02:34:14 PM EDT [facility] [place] [facility] Name Value Range Interpretation Code Description Data Berkley rce(s) Supporting Document(s) SODIUM 142 mmol/L (136-145) [facility] [place] [facility] POTASSIUM 4.1 mmol/L (3.6-5.2) [facility] [place] [facility] CHLORIDE 106 mmol/L (100-108) [facility] [place] [facility] CO2 31 mmol/L (22-31) [facility] [place] [facility] ANION GAP 5 mmol/L (7-16) L [facility] [place] [facility] UREA NITROGEN 24 mg/dL (7-24) [facility] [place] [facility] CREATININE 0.94 mg/dL (0.60-1.00) [facility] [place] [facility] BUN/CREAT RATIO 25.5 RATIO (10.0-20.0) H [facility] GLUCOSE 108 mg/dL (70-99) H [facility] [place] [facility] CALCIUM 9.4 mg/dL (8.4-10.2) [facility] [place] [facility] TOTAL PROTEIN 6.2 g/dL (6.4-8.2) L [facility] [place] [facility] ALBUMIN 3.7 g/dL (3.2-4.5) [facility] [place] [facility] GLOBULIN 2.5 g/dL (2.7-4.3) L [facility] [place] [facility] ALB/GLOB RATIO 1.5 RATIO [facility] [place] [facility] ALKALINE PHOSPHATASE 54 U/L (45-117) [facility] BILIRUBIN,TOTAL 0.8 mg/dL (0.0-1.0) [facility] [place] [facility] PLEASE NOTE:Total bilirubin results may be falselyelevated in patients taking Eltrombopag. AST (SGOT) 8 U/L (11-39) L Lab [facility] ALT (SGPT) 12 U/L (12-78) Lab [facility] GFR 56 ml/min/1.73m2 (>59) L Lab [facility] GFR ( AMER) >60 ml/min/1.73m2 (>59) Lab [facility] GFR INTERPRETATION [facility] --NORMAL KIDNEY FUNCTION OR MILD DISEASE - GFR >OR= 60CHRONIC KIDNEY DISEASE - GFR 15 - 59RENAL FAILURE - GFR <15 Est. GFR calculation based on the MDRDstudy equation, which assumes a steadystate for creatinine. Est. GFR should notbe used for medication dosing. ID Date Data Source [id number] 12/16/2020 02:27:09 PM EDT [facility] Name Value Range Interpretation Code Description Data Berkley rce(s) Supporting Document(s) HEMOGLOBIN A1C @ 5.3 % (4.0-6.0) [facility] [place] [facility] Performed using Siemens [place] immunoassa y.Care must be taken when interpreting LlP4nelexliq in patients with a hemoglobin variantor decreased erythrocyte lifespan. Values 5.7 - 6.4% suggest prediabetes.Values >=6.5% are diagnostic for diabetes.REFERENCE: DIABETES CARE 2018: 41(S13-S27). EST AVERAGE GLUCOSE 105 mg/dL Lab [facility] ID Date Data Source [id number] 12/16/2020 09:20:00 AM EDT [facility] Name Value Range Interpretation Code Description Data Berkley rce(s) Supporting Document(s) SARS coronavirus 2 RNA [Presence] in Res piratory specimen by MIRA with probe detection NOT DETECTED [facility] This lab was reported by [facility] [place] [facility]. ID Date Data Source [id number] 12/17/2020 09:11:24 AM EDT [facility] [place] kathleen YANEZ Name Value Range Interpretation Code Description Data Berkley rce(s) Supporting Document(s) SPECIMEN DESCRIPTION [facility] COVID 19 RESULT (NDET) [facility] [place] [facility] [place] NEGATIVE COVID-19 RESULTS DONOT PRECLUDE COVID-2019 INFECTION ANDSHOULD NOT BE USED THE SOLE BASISFOR PATIENT MANAGEMENT DECISIONS. COMMENT [facility] [place] [facility] [place] THE [place] FDA HAS MADE THIS TEST AVAILABL EUNDER AN EMERGENCY USE AUTHORIZATION(EUA) FOR THE DETECTION AND/OR DIAGNOSISOF THE VIRUS THAT CAUSES COVID-19.THIS ASSAY AMPLIFIES AND DETECTS TARGETDNA USING MICROSYSTEMS ENGINEER- MEDIATEDAMPLIFICATIONTESTING PERFORMED ON [employer] FIRST TEST [facility] [place] [facility] [place] [facility] SYMPTOMATIC [facility] [place] [facility] [place] Y DATE OF SYMPT ONSET [facility] HOSPITALIZED [facility] [place] [facility] [place] ICU [facility] [place] [facility] [place] CONGREGATE CARE SET [facility] [place] [facility] ID Date Data Source [id number] 12/13/2020 10:52:[address] [facility] CT A NGIO CHEST ABDOMEN PELVIS TAVRCLINICAL HISTORY: Severe aortic stenosis. TAVR.COMPARISON: CT chest April 28, 2019, CT abdomen and pelvis April 06, 2019. Those examinations are performed at [facility].TECHNIQUE: ECG gated images were obtained through the [...] rce(s) Supporting Document(s) ID Date Data Source [id number] 12/08/2020 06:56:00 AM EDT [facility] sylvia Hatch [address] [id number] FOLLOW UP NOTENAME: ELIZABETH LAWRENCE CPHYSICIAN: MARLI RED, MDDATE OF SERVICE: 12/07/20DATE OF : 31CCOUNT #: [id number]: ELIZABETH RAYEMPERATRIZDate: Dec 07OB: Dec 21hysician: Marli Red MD, [...] 05, 2020 flow cytometry no significant immunophenotypicabnormality ybukdaym24.July 19, 2020 hemoglobin 9.9 hematocrit 29.3 WBC 2.4 platelets 190differential neutrophils 49% lymphocytes 39% monocytes 7%Absolute neutrophilcount [id number].September 30, 2020 hemoglobin 7.2 hematocrit 23.1 WBC [...] 408 pg/mL ferritin 518.HISTORY OF PRESENT ILLNESSMrsSil Lawrnece is a 78-year-old female who 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 She has a history of hypertension, arthritis,osteoporosis, and TIA. Found to have an elevated platelet count of 981k. OnDecember 25, 2013.She was admitted to [facility] on April 20, 2013 when shepresented [...] 13 Mutations. Testing for MPL W515 and NQSL066 mutation was also negative. There was no [...] earlyJanuary. She has been told by the brush worker that she does not feel wellbecause of her heart valve problem. 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 Ms. 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 She is an active drinker.Ms. LAWRENCE [facility]Ms. LAWRENCE reports the following support systems: lives [...] the night.Vital Signs:Performed on Dec 07, 2020 12:51Fjhygl47.00 gmKvdtss001 lbs(LOW)BSA (derived)1.59 sq.mBMI25.77Oseurlerabk57.8 HPhuut88 /smzUipoyrbpoha51 /vaiJP626/68Pulse Oximetry (O2 Sat)95 %(LOW)Performance Status:1 - No [...] Oct 10, 2020 12:08WBC3.28 x10E3/uL(LOW)RBC2.12 x10E6/uL(LOW)HGB7.5 g/dL(LOW)HCT23.2 %(LOW)JUS312.4 fL(HIGH)MCH35.4 pg(HIGH)MCHC32.3 g/dL(LOW)RDW16.8 %(HIGH)Platelet Zjcbg456 x10E3/uLMPV11.7 fl(HIGH)Manual Segs %40 %Manual Bands %1 [...] Oct 10, 2020 12:05Blood TypeO NEGATIVECrossmatchUNIT NUMBER: [id number]: YPRODUCT: LEUKO REDUCED RED BLOOD CELLSSOURCE: [facility] TYPE: O NEGATIVEVOLUME: 313MLCROSSMATCH COMPONENTS:UNIT NUMBER: [id number]: YPRODUCT: LEUKO REDUCED RED BLOOD CELLSSOURCE: [facility] TYPE: O NEGATIVEVOLUME: 400MLCROSSMATCH COMPONENTS:UNIT NUMBER: [id number]: YPRODUCT: LEUKO REDUCED RED BLOOD CELLSSOURCE: [facility] TYPE: O NEGATIVEVOLUME: 301MLCROSSMATCH COMPONENTS:Type & ScreenBLOOD TYPE O NEGATIVEANTIBODY SCREEN NEGATIVEBLOOD TYPE O NEGATIVEANTIBODY SCREEN NEGATIVEOther test results are not available for this patient.Impression:#1. Essential thrombocytosis.#2. Hypertension.#3. History of stroke.#4. Use of zxfz-oko-ynexmnx supplementsPlan:#1. Essential thrombocytosis-Platelets on most recent CBC [...] off aspirinat this time.Electronically signed by:Marli Red [facility]: Name Value Range Interpretation Code Description Data Berkley rce(s) Supporting Document(s) ID Date Data Source [id number] 12/09/2020 12:42:00 PM EDT [facility] Name Value Range Interpretation Code Description Data Berkley rce(s) Supporting Document(s) [id number] TRANSFUSED PRODUCT: PACKED CELLS CO UNT: 2 [facility] ID Date Data Source [id number] 12/09/2020 12:42:00 PM EDT [place] *Hgb < 9.0g/dL with Chronic Transfusion Therapy YIrradiated? NCMV Negative? NTransfuse 2units over 2UNIT NUMBER: [id number]: YPRODUCT: LEUKO REDUCED RED BLOOD CELLSSOURCE: [facility] [place] TYPE: O NEGATIVEVOLUME: 337MLCROSSMATCH COMPONENTS:0UNIT NUMBER: [id number]: YPRODUCT: LEUKO REDUCED RED BLOOD CELLSSOURCE: [facility] [place] TYPE: O NEGATIVEVOLUME: 346MLCROSSMATCH COMPONENTS:0 Name Value Range Interpretation Code Description Data Berkley rce(s) Supporting Document(s) ID Date Data Source [id number] 12/09/2020 12:42:00 [facility]Hgb < 9.0g/dL with Chronic Transfusion Therapy YIrradiated? NCMV Negative? NTransfuse 2units over 2 Name Value Range Interpretation Code Description Data Berkley rce(s) Supporting Document(s) BLOOD TYPE O NEGATIVE N [facility] ANTIBODY SCREEN [facility]GATIVE [facility] Date Data Source [id number] 12/07/2020 02:12:00 PM EDT [facility] Name Value Range Interpretation Code Description Data Berkley rce(s) Supporting Document(s) WBC 2.48 x10E3/uL 4.0-10.5 [facility] RBC 2.07 x10E6/uL 4.20-5.40 L [facility] Hemoglobin 7.4 g/dL 12.0-16.0 [facility] Hematocrit 22.2 % 37.0-47.0 L [facility] MCV 107.2 fL 81.0-99.0 H [facility] MCH 35.7 pg 27.0-31.0 H [facility] MCHC 33.3 g/dL 32.7-35.6 [facility] RDW 20.0 % 11.5-14.0 H [facility] Platelet count 178 x10E3/uL 150-450 N [facility] ital MPV 11.4 fl 6.9-9.5 H [facility] SEG. NEUTROPHIL 43 % 34-64 N [facility] BAND 1 % 5-11 L [facility] LYMPHOCYTE 40 % 25-45 N [facility] EOSINOPHILS 7 % 0-7 N [facility] MONOCYTES 9 % 2-10 [facility] PLATELET MORPH 1+ PLT SIZE VARIES [facility] PLATELET MORPHOLOGY EXPECTED RESULT:NORM AL = NO [...] by the provider. ID Date Data Source [id number] 12/06/2020 11:44:00 AM EDT [facility] Value Range Interpretation Code Description Data Berkley rce(s) Supporting Document(s) Folate [Mass/volume] in Serum or Plasma >20.0 NG/ML 5.6 - 45.8 [facility] ID Date Data Source [id number] 12/06/2020 11:43:00 AM EDT [facility] Value Range Interpretation Code Description Data Berkley rce(s) Supporting Document(s) Ferritin [Mass/volume] in Serum or Plasma 518.3 ng/mL 3.0 - 105 H [facility] ID Date Data Source [id number] 12/06/2020 11:43:00 AM EDT [facility] Value Range Interpretation Code Description Data Berkley rce(s) Supporting Document(s) Cobalamin (Vitamin B12) [Mass/volume] in Serum or Plasma 408 PG/ML 232 - 1245 [facility] ID Date Data Source [id number] 12/06/2020 11:24:00 AM EDT [facility] Value Range Interpretation Code Description Data Berkley rce(s) Supporting Document(s) Iron [Mass/volume] in Serum or Plasma 99 UG/DL 42 - 135 [facility] Iron binding capacity.unsaturated [Mass/volume] in Serum or Plasma 78 UG/DL 112 - 347 L [facility] Iron binding capacity [Mass/volume] in Serum or Plasma 177 ug/dL 250 - 450 L [facility] Iron saturation [Mass Fraction] in Serum or Plasma 56 % [facility] ID Date Data Source [id number] 12/06/2020 11:24:00 AM EDT [facility] Name Value Range Interpretation Code Description Data Berkley rce(s) Supporting Document(s) COMPREHENSIVE METABOLIC PANEL [facility] COMPREHENSIVE METABOLIC PANEL Sodium [Moles/volume] in Serum or Plasma 140 mEq/L 134 - 153 [facility] Potassium [Moles/volume] in Serum or Plasma 4.0 mEq/L 3.6 - 5.0 [facility] Chloride [Moles/volume] in Serum or Plasma 103 mEq/L 98 - 107 [facility] Carbon dioxide, total [Moles/volume] in Serum or Plasma 28 MEQ/L 22 - 30 [facility] Glucose [Mass/volume] in Serum or Plasma 102 MG/DL 70 - 99 H [facility] BUN 27 MG/DL 7 - 21 H [facility] al Creatinine [Mass/volume] in Serum or Plasma 1.0 MG/DL 0.7 - 1.5 [facility] BUN/CREAT 27 8 - 27 [facility] al Protein [Mass/volume] in Serum or Plasma 6.4 G/DL 6.3 - 8.2 [facility] Albumin [Mass/volume] in Serum or Plasma 4.5 G/DL 3.9 - 5.0 [facility] Globulin [Mass/volume] in Serum by calculation 1.9 GM/DL 2.4 - 3.2 L [facility] A/G RATIO 2.4 0.8 - 2.0 H [facility] Calcium [Mass/volume] in Serum or Plasma 9.3 MG/DL 8.4 - 10.2 [facility] Bilirubin.total [Mass/volume] in Serum or Plasma 0.8 MG/DL 0.2 - 1.3 [facility] Alkaline phosphatase [Enzymatic activity/volume] in Serum or Plasma 50 U/L 38 - 126 [facility] Aspartate aminotransferase [Enzymatic activity/volume] in Serum or Plasma 10 U/L 5 - 40 [facility] Alanine aminotransferase [Enzymatic activity/volume] in Seru m or Plasma 6 U/L 7 - 56 L [facility] Anion gap 3 in Serum or Plasma 9.0 mmol/L 8.0 - 16.0 [facility] AGE 84 yrs [facility] NON-AA GFR 56 mL/min [facility] AFR AMER GFR >60 [facility] Male GFR In terprentation [...] >32 mL/min Normal ID Date Data Source [id number] 12/06/2020 11:18:00 AM EDT [facility] Name Value Range Interpretation Code Description Data Berkley rce(s) Supporting Document(s) CBC W/AUTOMATED DIFF [facility] COMPLETE BLOOD COUNT Leukocytes [#/volume] in Blood by Automated count 2.4 10^3/uL 4.2 - 1 1.0 L [facility] Erythrocytes [#/volume] in Blood by Automated count 2.26 10^6/uL 4. 20 - 5.40 L [facility] Hemoglobin [Mass/volume] in Blood 8.0 g/dL 12.0 - 16.0 L [facility] Hematocrit [Volume Fraction] of Blood by Automated count 24.5 % 3 7.0 - 47.0 L [facility] Erythrocyte mean corpuscular volume [Entitic volume] b y Automated count 108.4 fL 81.0 - 101 H [facility] Erythrocyte mean corpuscular hemoglobin [Entitic mass] by Automated count 35.4 pg 27.0 - 34.0 H [facility] Erythrocyte mean corpuscular hemoglobin concentration [Mass/volume] by Automated count 32.7 g/dL 31.0 - 36.0 [facility] Erythrocyte distribution width [Ratio] by Automated count 20.5 % 11.5 - 14.5 H [facility] Platelets [#/volume] in Blood by Automated count 189 10^3/uL 150 - 45 0 [facility] Platelet mean volume [Entitic volume] in Blood by Automated count 10.9 fL 7.4 - 10.4 H [facility] Neutrophils/100 leukocytes in Blood by Automated count 47.9 % 37. 0 - 80.0 [facility] Lymphocytes/100 leukocytes in Blood by Manual count 30.5 % 25.0 - 40.0 [facility] Monocytes/100 leukocytes in Blood by Automated count 12.7 % 3.0 - 8.0 H [facility] Eosinophils/100 leukocytes in Blood by Automated count 8.1 % 0.0 - 7.0 H [facility] Basophils/100 leukocytes in Blood by Automated count 0.0 % 0.0 - 2.5 [facility] %IG 0.8 % 0.0 - 0.0 [facility] %NRBC 0.0 % 0.0 - 0.0 [facility] Neutrophils [#/volume] in Blood by Automated count 1.13 10^3/uL 2.00 - 6.90 L [facility] Lymphocytes [#/volume] in Blood by Automated count 0.72 10^3/uL 0.60 - 3.40 [facility] Monocytes [#/volume] in Blood by Automated count 0.30 10^3/uL 0.00 - 0.90 [facility] Eosinophils [#/volume] in Blood by Automated count 0.19 10^3/uL 0.00 - 0.70 [facility] Basophils [#/volume] in Blood by Automated count 0.00 10^3/uL 0.00 - 0.20 [facility] #IG 0.02 10^3/uL 0.00 - 0.10 [facility] #NRBC 0.00 10^3/uL 0.00 - 0.00 [facility] MANUAL DIFF SEE BELOW [facility] ital Segmented neutrophils/100 leukocytes in Blood by Manual count 40 % 37 - 80 [facility] Hospital %LYMPH 42 % 25 - 40 H [facility] %MONO 6 % 3 - 8 [facility] %EOS 10 % 0 - 7 H [facility] GIANCARLO LYM 2 % [facility] RBC MORPH SEE BELOW [facility] al Anisocytosis [Presence] in Blood by Light microscopy 1+ MANA L: NONE SEEN A [facility] Macrocytes [Presence] in Blood by Light microscopy 1+ NORMAL: NONE SEEN A [facility] HYPO 1+ NORMAL: NONE SEEN A [facility] { SICKLE CELL (NORMAL: NONE SEEN ) Platelet adequacy [Presence] in Blood by Light microscopy NORMAL NORMAL: NORMAL [facility] COMMENT: ID Date Data Source [id number] 11/21/2020 05:19:03 PM EDT [place] [id number] Name: ELIZABETH DUARTEB: 1935Sex: FOrdering Provider: GRACIE Alejandre Prov: GRACIE Loera Provider: Procedure Performed: / US CAROTID BILATERALExam Date: 11/21/2020 16:24MRN: [id number] Number: [id number] Class: OutpatientAccount #: [id number] [id number] Exam: TAVR protocolTechnique: Duplex sonography was [...] NBA DONIS On 11/21/2020 5:19 PMWorkstation ID: [id number] Name Value Range Interpretation Code Description Data Berkley rce(s) Supporting Document(s) ID Date Data Source [id number] 11/21/2020 04:24:14 PM EDT [facility] INFORMATIONPatient MRN Name Date of Age Gend*PT [id number] Elizabeth Lawrence 1935 84 years F HOPPT Location Admission Date/Time Visit ID Attending ProviderCV-27 11/21/20 1122 --- Saad Villareal MD([id number]) EPI ID CSN Admitting Provider [id number] Saad Villareal MD([id number])Cardiovascular and Thoracic Surgery HISTORY & PHYSICAL1Chief Compliant [...] Laterality Date [facility].Social History:Social HistorySocioeconomic [...] Social Gatherings with Friends and Family: Attends Cheondoism Services: Active Member of Clubs or Organizations: Attends Club or Organization Meetings: Marital Status:Intimate Partner Violence: Fear of Current or Ex-Partner: Emotionally Abused: Physically Abused: Sexually Abused:Allergies:Patient has no known drug allergies.Medications:Current Facility-Administered Medications: heparin (porcine) injection, , , PRN, Amelia Jacome MD, 5,000 Units at11/21/20 1445 iopamidol (ISOVUE-370) 76 %, , , PRN, Amelia Jacome MD, 50 mL at 456 lidocaine 1 [...] PRN, Amelia Jacome MD, 5 mg at [id number] of SystemsReview of Systems - History obtained [...] Dominique NP Studydate: 09/21/20Patient InformationPatient NameElizabeth Lawrence ([id number]) Legal SexFemale DOB14Reason for Examshortness of breath [...] in discussion with the patient.Kurt Weller MD [facility] FACSCardiovascular Thoracic Yeh rgery11/21/2020, 4:10 PM Name Value Range Interpretation Code Description Data Berkley rce(s) Supporting Document(s) ID Date Data Source [id number] 11/21/2020 03:34:45 PM EDT [facility] INFORMATIONPatient MRN Name Date of Age Gend*PT [id number] Elizabeth Lawrence 1935 84 years F HOPPT Location Admission Date/Time Visit ID Attending ProviderCV-27 11/21/20 1122 --- Saad Villareal MD([id number]) EPI ID CSN Admitting Provider [id number] Saad Villareal MD([id number])ADMISSION HISTORY AND PHYSICALName: Elizabeth Lawrence Gender: femaleDate [...] Laterality Date [facility].Social HistorySocial History [...] Social Gatherings with Friends and Family: Attends [employer] Services: Active Member of Clubs or Organizations: [...] Weight: 59.3 kg (130 lb 11.7 oz)Physical PbivJSZs6Ssrx: No JVDHeart: Reg S1S2, 0/6 MLungs: CTA bilaterallyAbdomen: ND, +BS, Soft, NTExt: No clubbing, cyanosis, edemaDiagnostics echo : reviewed and abnorml.Assessment & PlanIndication:Pre- AVR workup.Risks and benefits of the procedure were discussed with the patient. Risksinclude but are not limited to bleeding, infection, stroke, [place], arrhythmia, needfor emergency surgery, and KEIRA. Patient understands the risk and is agreeableto proceed with the procedure.Aspirin: yesPlavix: yes Name Value Range Interpretation Code Description Data [facility] rce(s) Supporting Document(s) ID Date Data Source [id number] 11/21/2020 03:19:00 PM EDT [facility] Name Value Range Interpretation Code Description Data [facility] &PDF [facility] HGJTId9fZjMWFbRk99/QLKgoTTMag0JzYSwqCKm2SAzcGLXwN2ZudBwzCF9SG63ZMSaJVSXDFV7SUM3r oRX [file] AgICAgICAgICAgICAgICAgICAgICAgICAgICAgICAg SKCzGZSkDZDyKPVcYSFzIUEbRBLwGVHfHSLtKNUuLUExZUPhTBWrUGOvERWdVFNsTNYkDIRjZZUpFQ1P ICAgICAgICAgICAgICAgICAgICAgICAgICAgICAgICAgICAgICAgICAgICAgICAgICAgICAgICAgICAg ICAgICAgICAgICAgICAgICAgICAgICAgICAgICAgIC RlLHYvJDSgPD3MYWIvNATlYVNtRNUtJLIxCCIxWDVeHEUiCCOkKTDaRHHgSUBoUJWdGDMkMSApZMCjXG XaMOFsEWXwMHRmPVKeVCWvLISiFJDlGQVbCZVbSTYuNMUcPTPjWQFhPMKiYGBwQQLvAW6QOTCjAPSqBU AgICAgICAgICAgICAgICAgICAgICAgICAgICAgICAg ICAgICAgICAgICAgICAgICAgICAgICAgICAgICAgICAgICAgICAgICAgICAgICAgICAgICAgICAgICAg MP8CQAWxWUGtAJAkISXbIDVpBXUeWAElIYJlZGXcJTAaYOVsXVPlGQFhGWNoPUKiOQJuZSIeHESkRQWn ICAgICAgICAgICAgICAgICAgICAgICAgICAgICAgIC JmDJPdMPKyZEGnKD8EHIVzIPMyMYImYAPbJTAzOUIrGODbFKLdIRJqXWSwEBOySGPcRBMdXIIaDMWaOM NdKQNbGSAqVIItDELsWOUhFMDyLIIkWXNyLJIqKPJtLGYwAJWgLXFzNVZhIJWjURTmSDIbRQ0XRFNyHV AgICAgICAgICAgICAgICAgICAgICAgICAgICAgICAg ICAgICAgICAgICAgICAgICAgICAgICAgICAgICAgICAgICAgICAgICAgICAgICAgICAgICAgICAgICAg LPTdEV7FYYSnCIWsGFFiJGYoOGGgDVKeBLYaAOLtZKEnFZRpWJStYTJgNXHvIKAcVSJfPREkJUDjBREo ICAgICAgICAgICAgICAgICAgICAgICAgICAgICAgIC DjSUCfMZKiPIIyYZRcXS5PHZPqQRRhJOFpBQHtSWGgJMQzQZKoMGWrIBMkKNIfIIHcRTItBJNtKJYjOK NqZLTsJIHtLFTdHGImOQIgHHHcQEIbGNBnPKZxPIUuLEQhAEJrWWRaFODuQXXtNBCzUGHsACNqRN8RPT AgICAgICAgICAgICAgICAgICAgICAgICAgICAgICAg ICAgICAgICAgICAgICAgICAgICAgICAgICAgICAgICAgICAgICAgICAgICAgICAgICAgICAgICAgICAg WEMmSYNzAI3EKY05dASqm2I3GAVcVD7mweg/Fy4KJBolhxVmrMGuXO7ZPtJaJY7umv8QZbOmRL6krh2H XFzGQzLsD7L4iCBaZEXyBNELOcUkT35nNCtyAu19KC ivBRKaXmBcOHm8Or7IMvQlQ4oyMDLnWdI6WMVfKuT2HYAdBjL2SPJgAnHwHCSbVJXcTG3XEHSoI363qx AaCO3CRd5FArTrML1nyg6AZrAyROUvAfcOViw6DQihYM8XsQVqsUBgBALnRWZJTwFoW2aon9QrJtTwFV ZCQWanOC9Sb1BrtHIiAXo+Ax4QCG9xr1EzHJrxNFSg TJ3hvi4BTPwGVeJvR1GsoQihJEfdvYcqutJzFA6CFJXpQNNczFMpATvmDRMMAB3BIQezRNHvJXSnxuOh bFFrJAvtWJ1CWPCenkJoJhKiDEBBGAm+Rj2IRB2bd9MeAYttJwOiOE0tbz9GBMiOVdUzI0C6wOFnU6S9 ILptQz8DWEEyITMsMyNwIZDSALuvQE6BCP4teeR3BT 5BiIXgANQzXGTfaKCdRKw0G58zbXJiXIhhLS4NSVB+Antonette+Fx6VTVLfHLQiNAQkQdItEFOVAnOpM6PaX9 BBz7RiL7AcGM37cQemosDuJXzdCH6IFH3nJBOqOVYPMS4FgMCsfF9zreSrXMBdKGWREpIfG30aqUBdNF VtISTaACUdBi0PLHEeY6PvvrIcoAbqqkZlTOXxYOUZ PK7SEUzunzBtiFQovKsrTF22iHexUB6URz0OYcKjMK9rcz3GxYLlOj8RHIMkRd2OFGRqBVLvOGUnGAR8 BTSzAiPpTWpsGXZtALWlBRQ5KHDzDQRkNK6IGfKgITFbTaOqUXjtDPEhRUFafv3ZTCVlKXEbNLiiOeUx LRCuVAXyKNahLQYhXMZdEBitRVScNNZiZA4ARgAzHF FbGZPlEHUfUWOnTYYvso6HMXUmLWGaVgBdIKWxGSEjOIFlLOrsGYSaPHD0YuI6IWVaZIUlRE5WRyZhZX VgHZD1QuqaSVCoZNGwcm7KDYUaUZQuPmZ4UoBlKHPeSHKpUKkkPSHeITV0KUH4UHEzCETyUL6GDrMtER EfGGndTEulOLLeXYDygi2WNHQoRZJpOaSiENQlCTHr AZYqHZclKQKaHBS7XIK0QYOpSFCaNW5NEnQcXDXvMGk8RaEaHDDwYLSuha5FZPWfJHEnBEp4TDGdENHe MCQxOGzfEKIkVPL4UJX1SFMxAVDrKL3UOsTsRPNxQIUbOBRaVINvHPDlrx1SJYWxBOXbTLR7GLVqWKXd KEAjZEjoLNYwOXQyMGs0NTLoTZMcBF0GRgBaHRZaTW W1EMKzNVCgJWLifx3OMZMoJVTjPPD4KDCxIDTbDWJmXJosSZGjFBZyONE5IJLlUZPiXN6QAhLkYFZaTv W6OOUuBIXuAJWdkh2YEIEyJNTnUbJ6XdCaGLZnITWfLLfxRPEtRNSuRUE6PDUwIXXmAG1WDyXzUUBtSd XaEGSuSCXjTYLwfp0YsPAifQoaqy7BZKzGOk3WbEeg KTF3NVgeDd6qlCCwHiIbEYDQIh4VcmDpDTKoXBYIXHabQIOaQPYiGoHvF8EmMtHhEunqTxK7RYB3PWI5 ZUGeQwn2HFYpGyA1RtA8PDG2DAMtBFL6M3DgBSIzRplvQJY5LCT2XQgyZBA+EI6fFWr+Si5Li3FxwhB7 ntAnTHpmHaA2Gb8FTCJUI9GPLk== ID Date Data Source [id number] 11/21/2020 12:31:58 PM EDT [facility] Name Value Range Interpretation Code Description Data Berkley rce(s) Supporting Document(s) EKG [facility] MCGTYl9eIwFMIkPif9JgOfUoNXWiBC6htjs3V2J6hCNjM0RwhXLfr9qjD6FwW9SpNUEoKLQNUC8YzNIw jb2 [file] ID Date Data Source [id number] 11/09/2020 04:48:46 PM EDT [facility]FORMATIONPatient MRN Name Date of Age Gend*PT [id number] Elizabeth Lawrence 1935 84 years F ---PT Location Admission Date/Time Visit ID Attending Provider --- --- --- --- EPI ID CSN Admitting Provider [id number] ---Addended by: BURT DOMINIQUE on: 11/09/2020 04:48 PM Modules accepted: Orders Name Value Range Interpretation Code Description Data Berkley rce(s) Supporting Document(s) ID Date Data Source [id number] 10/27/2020 09:05:00 AM EDT [facility] Name Value Range Interpretation Code Description Data Berkley rce(s) Supporting Document(s) CVE PANEL [facility] al LIPID PANEL Cholesterol [Mass/volume] in Serum or Plasma 135 MG/DL 131 - 200 [facility] Deprecated Triglyceride [Mass/volume] in Serum or Plasma 58 MG/DL 3 5 - 160 [facility] HDL 53 MG/DL 29 - 86 [facility] Cholesterol in LDL [Mass/volume] in Serum or Plasma by Direc t assay 81 mg/dL 65 - 175 [facility] Cholesterol.total/Cholesterol in HDL [Mass Ratio] in Serum o r Plasma 2.5 3.2 - 4.4 L [facility] LDL/HDL 1.53 1.47 - 3.22 [facility] ital CVE RISK CHOL/HDL LDL/HDLMEN: 1/2 AVERAGE 3.43 1.00 AVERAGE 4.97 3.55 2X AVERAGE 9.55 6.25 3X AVERAGE 23.99 7.99WOMEN: 1/2 AVERAGE 3.27 1.47 AVERAGE 4.44 3.22 2X AVERAGE 7.05 5.03 3X AVERAGE 11.04 6.14 ID Date Data Source [id number] 10/27/2020 09:05:00 AM EDT [facility] Name Value Range Interpretation Code Description Data Berkley rce(s) Supporting Document(s) COMPREHENSIVE METABOLIC PANEL [facility] COMPREHENSIVE METABOLIC PANEL Sodium [Moles/volume] in Serum or Plasma 141 mEq/L 134 - 153 [facility] Potassium [Moles/volume] in Serum or Plasma 4.4 mEq/L 3.6 - 5.0 [facility] Chloride [Moles/volume] in Serum or Plasma 106 mEq/L 98 - 107 [facility] Carbon dioxide, total [Moles/volume] in Serum or Plasma 28 MEQ/L 22 - 30 [facility] Glucose [Mass/volume] in Serum or Plasma 99 MG/DL 70 - 99 [facility] BUN 24 MG/DL 7 - 21 H [facility] al Creatinine [Mass/volume] in Serum or Plasma 0.9 MG/DL 0.7 - 1.5 [facility] BUN/CREAT 27 8 - 27 [facility] al Protein [Mass/volume] in Serum or Plasma 6.0 G/DL 6.3 - 8.2 L [facility] Albumin [Mass/volume] in Serum or Plasma 4.0 G/DL 3.9 - 5.0 [facility] Globulin [Mass/volume] in Serum by calculation 2.0 GM/DL 2.4 - 3.2 L [facility] A/G RATIO 2.0 0.8 - 2.0 [facility] Calcium [Mass/volume] in Serum or Plasma 8.8 MG/DL 8.4 - 10.2 [facility] Bilirubin.total [Mass/volume] in Serum or Plasma <0.7 MG/DL 0.2 - 1.3 [facility] Alkaline phosphatase [Enzymatic activity/volume] in Serum or Plasma 51 U/L 38 - 126 [facility] Aspartate aminotransferase [Enzymatic activity/volume] in Se rum or Plasma 9 U/L 5 - 40 [facility] Alanine aminotransferase [Enzymatic activity/volume] in Seru m or Plasma 7 U/L 7 - 56 [facility] Anion gap 3 in Serum or Plasma 7.0 mmol/L 8.0 - 16.0 L [facility] AGE 84 yrs [facility] NON-AA GFR >60 mL/min [facility] ital AFR AMER GFR >60 [facility] Male GFR In terprentation [...] >32 mL/min Normal ID Date Data Source [id number] 10/27/2020 08:54:00 AM EDT [facility] Name Value Range Interpretation Code Description Data Berkley rce(s) Supporting Document(s) CBC W/AUTOMATED DIFF [facility] COMPLETE BLOOD COUNT Leukocytes [#/volume] in Blood by Automated count 2.6 10^3/uL 4.2 - 1 1.0 L [facility] Erythrocytes [#/volume] in Blood by Automated count 3.15 10^6/uL 4. 20 - 5.40 L [facility] Hemoglobin [Mass/volume] in Blood 10.4 g/dL 12.0 - 16.0 L [facility] Hematocrit [Volume Fraction] of Blood by Automated count 32.0 % 3 7.0 - 47.0 L [facility] Erythrocyte mean corpuscular volume [Entitic volume] b y Automated count 101.6 fL 81.0 - 101 H [facility] Erythrocyte mean corpuscular hemoglobin [Entitic mass] by Automated count 33.0 pg 27.0 - 34.0 [facility] Erythrocyte mean corpuscular hemoglobin concentration [Mass/volume] by Automated count 32.5 g/dL 31.0 - 36.0 [facility] Erythrocyte distribution width [Ratio] by Automated count 16.7 % 11.5 - 14.5 H [facility] Platelets [#/volume] in Blood by Automated count 162 10^3/uL 150 - 45 0 [facility] Platelet mean volume [Entitic volume] in Blood by Automated count 11.2 fL 7.4 - 10.4 H [facility] Neutrophils/100 leukocytes in Blood by Automated count 39.6 % 37. 0 - 80.0 [facility] Lymphocytes/100 leukocytes in Blood by Manual count 40.5 % 25.0 - 40.0 H [facility] Monocytes/100 leukocytes in Blood by Automated count 10.3 % 3.0 - 8.0 H [facility] Hospital Eosinophils/100 leukocytes in Blood by Automated count 6.5 % 0.0 - 7.0 [facility] 0.4 %IG 2.7 % 0.0 - 0.0 H [facility] al %NRBC 0.0 % 0.0 - 0.0 [facility] Neutrophils [#/volume] in Blood by Automated count 1.04 10^3/uL 2.00 - 6.90 L [facility] Lymphocytes [#/volume] in Blood by Automated count 1.06 10^3/uL 0.60 - 3.40 [facility] Monocytes [#/volume] in Blood by Automated count 0.27 10^3/uL 0.00 - 0.90 [facility] Eosinophils [#/volume] in Blood by Automated count 0.17 10^3/uL 0.00 - 0.70 [facility] Basophils [#/volume] in Blood by Automated count 0.01 10^3/uL 0.00 - 0.20 [facility] #IG 0.07 10^3/uL 0.00 - 0.10 [facility]ital #NRBC 0.00 10^3/uL 0.00 - 0.00 [facility] ospital MANUAL DIFF SEE BELOW [facility] ital Segmented neutrophils/100 leukocytes in Blood by Manual count 42 % 37 - 80 [facility] BAND 2 % 0 - 5 [facility] %LYMPH 38 % 25 - 40 [facility] al %MONO 8 % 3 - 8 [facility] %EOS 8 % 0 - 7 H [facility] al 2 RBC MORPH SEE BELOW [facility] al Anisocytosis [Presence] in Blood by Light microscopy 1+ MANA L: NONE SEEN A [facility] Microcytes [Presence] in Blood by Light microscopy 1+ NORMAL: NONE SEEN A [facility] HYPO 1+ NORMAL: NONE SEEN A [facility] { SICKLE CELL (NORMAL: NONE SEEN ) HELMET CELLS 1+ NORMAL: NONE SEEN A [facility] Platelet adequacy [Presence] in Blood by Light microscopy NORMAL NORMAL: NORMAL [facility] COMMENT: ID Date Data Source [id number] 10/10/2020 12:58:00 PM EDT [facility] Name Value Range Interpretation Code Description Data Berk[facility] rce(s) Supporting Document(s) WBC 3.28 x10E3/uL 4.0-10.5 L [facility] RBC 2.12 x10E6/uL 4.20-5.40 L [facility] Hemoglobin 7.5 g/dL 12.0-16.0 L [facility] Hematocrit 23.2 % 37.0-47.0 L [facility] MCV 109.4 fL 81.0-99.0 H [facility] MCH 35.4 pg 27.0-31.0 H [facility] MCHC 32.3 g/dL 32.7-35.6 L [facility] RDW 16.8 % 11.5-14.0 H [facility] Platelet count 157 x10E3/uL 150-450 N [facility] MPV 11.7 fl 6.9-9.5 H [facility] SEG. NEUTROPHIL 40 % 34[facility] al BAND 1 % 5-11 L [facility] LYMPHOCYTE 42 % 25-45 N [facility] EOSINOPHILS 10 % 0-7 H [facility] MONOCYTES 4 % 2-10 N [facility] BASOPHILS 2 % 0-2 N [facility] METAMYELOCYTES 1 % 0-2 N [facility] l 1+ ANISOCYTOSIS1+ OVALOCYTES1+ MACROCYTO SIS1+ HYPOCHROMICRBC MORPHOLOGY EXPECTED RESULTS: NORMAL = NORMOCHROMIC, NORMOCYTIC CELLSAny findings other than Normal will be reported and areconsidered Abnormal. The significance of Abnormalfindings are to be clinically correlated by the provider. ID Date Data Source [id number] 10/13/2020 12:52:00 PM EDT [facility] Name Value Range Interpretation Code Description Data Berkley rce(s) Supporting Document(s) [id number] TRANSFUSED PRODUCT: PACKED CELLS CO UNT: 3 [facility] ID Date Data Source [id number] 10/13/2020 12:52:00 PM EDT [facility] sylvia Comments to BBK: PT HAS NO HX, CBC AND R ETYPE ORDERED *Hgb < 8.0g/dL or Hct < 24% and PT Hemodynamically Unstable YIrradiated? NCMV Negative? NTransfuse 1units over 2UNIT NUMBER: [id number]: YPRODUCT: LEUKO REDUCED RED BLOOD CELLSSOURCE: [facility] TYPE: O NEGATIVEVOLUME: 313MLCROSSMATCH COMPONENTS:0UNIT NUMBER: [id number]: YPRODUCT: LEUKO REDUCED RED BLOOD CELLSSOURCE: [facility] TYPE: O NEGATIVEVOLUME: 400MLCROSSMATCH COMPONENTS:0UNIT NUMBER: [id number]: YPRODUCT: LEUKO REDUCED RED BLOOD CELLSSOURCE: [facility] TYPE: O NEGATIVEVOLUME: 301MLCROSSMATCH COMPONENTS:0 Name Value Range Interpretation Code Description Data Berkley rce(s) Supporting Document(s) ID Date Data Source [id number] 10/13/2020 12:52:00 PM EDT [facility] Comments to BBK: PT HAS NO HX, CBC AND R ETYPE ORDERED *Hgb < 8.0g/dL or Hct < 24% and PT Hemodynamically Unstable YIrradiated? NCMV Negative? NTransfuse 1units over 2 Name Value Range Interpretation Code Description Data Berkley rce(s) Supporting Document(s) BLOOD TYPE O NEGATIVE [facility] ANTIBODY SCREEN NEGATIVE N [facility] al ID Date Data Source [id number] 10/10/2020 01:49:00 PM EDT [facility] Comments to BBK: PT HAS NO HX, CBC AND R ETYPE ORDERED Name Value Range Interpretation Code Description Data Berkley rce(s) Supporting Document(s) BLOOD TYPE O NEGATIVE [facility] ID Date Data Source [id number] 10/06/2020 07:14:00 AM EDT [facility] [address] [address] FOLLOW UP NOTENAME: ELIZABETH LAWRENCE CPHYSICIAN: MARLI RED, ROSANNAATE OF SERVICE: 10/05/20DATE OF : [birth year]CCOUNT #: [id number]: ELIZABETH LAWRENCEDate: Oct 05OB: [birth year]Physician: Francisco OrdonezBSilS.Age: 84Note Title: Hematology Follow UpDiagnosis:Primary [...] 05, 2020 flow cytometry no significant immunophenotypicabnormality [id number].July 19, 2020 hemoglobin 9.9 hematocrit 29.3 WBC 2.4 platelets 190differential neutrophils 49% lymphocytes 39% monocytes 7%Absolute neutrophilcount [id number].September 30, 2020 hemoglobin 7.2 hematocrit 23.1 WBC 4.8 platelets 146differential neutrophils 58% lymphocytes 25% monocytes 11% eosinophils 4%HISTORY OF PRESENT ILLNESSMrsSil Lawrence is a 78-year-old female who 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 She has a history of hypertension, arthritis,osteoporosis, and TIA. Found to have an elevated platelet count of 981k. OnDecember 25, 2013.She was admitted to [facility] on April 20, 2013 when shepresented [...] 13 Mutations. Testing for MPL W515 and [id number] mutation was also negative. There was no [...] risks of possible breach ofhealth information systems operator while using technology. 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 Ms. 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 She is an active drinker.Ms. LAWRENCE reports no [facility] with [facility].Ms. LAWRENCE reports the following support systems: [...] thrombocytosis.#2. Hypertension.#3. History of stroke.#4. Use of eftq-dzh-xihxmuy supplementsPlan:#1. Essential thrombocytosis-Platelets on most recent CBC [...] have this [facility].3. Bilateral lung crackles on exam patient denies [...] rce(s) Supporting Document(s) ID Date Data Source [id number] 09/25/2020 01:18:12 PM EDT [facility] Name Value Range Interpretation Code Description Data Berkley rce(s) Supporting Document(s) &PDF [facility] QOOQSq6eWcOEMiJd72/AOVygGZZqx6CcAOumFKo1DTloKIRaX8RdtRtdBY1BZ02UGBqUBZMPAB2RCV1j oRX [file] GsOABPTf/5+HxBV++f//tourist home keeper+307eOVViR9U0OEs+MmQ8DiMG/rYYQ5HEp+n//34uBKtNRRsbLU3klZ9J [file] AgICAgICAgICAgICAgICAgICAgICAgICAgICAgICAg ICAgICAgICAgICAgICAgICAgICAgICAgICAgICAgICAgICAgICAgICAgICAgICAgICAgICAgICAgICAg ICANCiAgICAgICAgICAgICAgICAgICAgICAgICAgICAgICAgICAgICAgICAgICAgICAgICAgICAgICAg ICAgICAgICAgICAgICAgICAgICAgICAgICAgICAgIC AgICAgICAgICAgICANCiAgICAgICAgICAgICAgICAgICAgICAgICAgICAgICAgICAgICAgICAgICAgIC AgICAgICAgICAgICAgICAgICAgICAgICAgICAgICAgICAgICAgICAgICAgICAgICAgICAgICANCiAgIC AgICAgICAgICAgICAgICAgICAgICAgICAgICAgICAg ICAgICAgICAgICAgICAgICAgICAgICAgICAgICAgICAgICAgICAgICAgICAgICAgICAgICAgICAgICAg ICAgICANCiAgICAgICAgICAgICAgICAgICAgICAgICAgICAgICAgICAgICAgICAgICAgICAgICAgICAg ICAgICAgICAgICAgICAgICAgICAgICAgICAgICAgIC AgICAgICAgICAgICAgICANCiAgICAgICAgICAgICAgICAgICAgICAgICAgICAgICAgICAgICAgICAgIC AgICAgICAgICAgICAgICAgICAgICAgICAgICAgICAgICAgICAgICAgICAgICAgICAgICAgICAgICANCi AgICAgICAgICAgICAgICAgICAgICAgICAgICAgICAg ICAgICAgICAgICAgICAgICAgICAgICAgICAgICAgICAgICAgICAgICAgICAgICAgICAgICAgICAgICAg ICAgICAgICANCiAgICAgICAgICAgICAgICAgICAgICAgICAgICAgICAgICAgICAgICAgICAgICAgICAg ICAgICAgICAgICAgICAgICAgICAgICAgICAgICAgIC AgICAgICAgICAgICAgICAgICANCiAgICAgICAgICAgICAgICAgICAgICAgICAgICAgICAgICAgICAgIC AgICAgICAgICAgICAgICAgICAgICAgICAgICAgICAgICAgICAgICAgICAgICAgICAgICAgICAgICAgIC ANCiAgICAgICAgICAgICAgICAgICAgICAgICAgICAg ICAgICAgICAgICAgICAgICAgICAgICAgICAgICAgICAgICAgICAgICAgICAgICAgICAgICAgICAgICAg ICAgICAgICAgICANCjw/dJUzJ5kqhRPymeL5H5erPo0WRe3JOQ0wp5BbTOAlDZmrcpGjBauVTsJwCCGj JnkMCky5GOyaKO9WhGXnU1KbH2WyXYchEM0MRCJoSA SldVNrZDBlLYJcJwA1OJQkYWmwGD9JfMBdIRaxHXYtWNPyNaIeVCIlANWlRJVhKY3URLQqS536qnCxTe 8UIy5PFhKvBW9dij2ONwXaHXJgPmzQIdn1GCikEF7SqXTlG3PjhOWkq7wFRvNsP3FEQDLmZTQgZj3PTD CpErNlTCZjQAxaZW5qPNIqLLRMtUiwhiY5XG4TUJ8o vsYcBU9ENdZfXx1sQf1FRdUnP5JaT3PoUUKlQYMIJGlkCX3QDMYcJKK3YTFaAJBcKEIKOzXxG00bUH8Q K6Svo83pVlV2OPIhSvTzJTckYB52eNwkbuGehBYolKoxLA1WYz4+DQplbmRvYmoNCnhyZWYNCjAgMzYN JbNkZIAoSBYrMQXwQhI8TfLgFr8EZKQzCKKsWUTiXc TlXSIjXFTjEVzxQNEbNFKnHHF3AIYeQNXvXZ5UKrSqNRKsDfB4HWilLWOjTDZnfn9GTCMfDQYgNRQ4BY LiKYAkIEZwEBumYKFwFODiTJN5QBMaNIDoYU2CRjIeUDOkJYXvUjTbZKPrBFHbbk2JKJWeMANxOxJdQQ JqBTHsXPGzZEwtYFScNJH1PZP3JQLyVIAqDM9SVpGm YINjTFr4GdKsYJBuEKIzet4RBXWjTLFmWZm1QQPaGCLcZVUlXUlyNQCqQUPxWKO0KKOzIZExFA2GWqFu DYIuRSJfIbWvDTVdRBXypd1FMHVtWEPnBHAnDYKdPJNqYOMcBUxwYUEnWWPwBwr8SPJuIVIsNH2MQnDg TEPmNJC2ANEmUTRpLUDrzv2GKUWaLDLbEpM3OGImEX RxREUsOTlcDFPaDMM6FSW7RHLhXLEdGT4KEhKnLIBaTIq0UJRaGAZaWHAgen7IHMLwEHUrGFK6OsUsCR GtFHCwYZmyRUJbIIC2HavwFTFgPURzJE4VNoMeSZQgYQs1ZWNtIDOnMXDpml4NUFUgBQBhYYQ0ZzQqPT YnSDVkXLhsIHEhWXD1NKC9GYLzXINsVN5WAmZvHVFs JNj8EEQtDYHqCIUdbh7BNOQjAJZlHZC7OtPaSJJkBIPkQFtaAOUtICCfQTC2VMOtYLGrVE1QApYpEXBz RzIiPMRcUESeBWTsah2PWCCzAZXcTSG9AhQsOUAyQIXcKPbqBYYvWZUvSkC9WJFyICHxLP7OQrYbOWOg FwZ5BymkOLMqBBKbdh8GEXKkZRCzUeL0IXLeIKRoRI TeAEcuFVIeMGVtXNQ6QTVtGTTjQX7FNmPcIFLaUiE1LSDrRGOtOEVacf2RLZNxSFEwTyNuUGShQKXeWJ HdJSvbBLRiVJJ3PrX9CMVzLSXcZM8KRuVnINssVREWPzu7OQddI9g8YYLdVr9LA3Oxw7LiYdHsOAKGEH tcBF3lsgFtUSIbYj0JI8uUAeiaLDV4JwCcTIM7HhD9 AYR1YPl4EUN1HMRiZQV3RSOuRV3sUQN9JVcqHTQmQBU8DpZcBMPcWCCsYIWaQCZzHxu8QVE2WmCgRJ4K Qy9YKtD3WEL7lVFvFb8YHgB4JGIHBjHhGJ3SUWc= ID Date Data Source [id number] 07/28/2020 08:08:00 AM EDT [facility] [place] [id number] FOLLOW UP NOTENAME: ELIZABETH LAWRENCE CPHYSICIAN: ROSANNA ORDONEZATE OF SERVICE: 07/27/20DATE OF : [birth year]CCOUNT #: [id number]: ELIZABETH LAWRENCEDate: July 27OB: [birth year]Physician: Dayana [...] 05, 2020 flow cytometry no significant immunophenotypicabnormality [id number].July 19, 2020 hemoglobin 9.9 hematocrit 29.3 WBC 2.4 platelets 190differential neutrophils 49% lymphocytes 39% monocytes 7%Absolute neutrophilcount 1200HISTORY OF PRESENT ILLNESSMrsSil Lawrence is a 78-year-old female who 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 She has a history of hypertension, arthritis,osteoporosis, and TIA. Found to have an elevated platelet count of 981k. OnDecember 25, 2013.She was admitted to [facility] on April 20, 2013 when shepresented [...] 13 Mutations. Testing for MPL W515 and [id number] mutation was also negative. 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 Ms. 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 She is an [...] the night.Vital Signs:Performed on July 27, 2020 13:21Mnbcqx01.00 auUnhoqa030.2 lbs(HIGH)BSA (derived)1.63 sq.mBMI26.13Kfsatiyovyx24.4 DKauex60 /ptoOcxbshtyzsb16 /ksrDK291/80Pulse Oximetry (O2 Sat)97 %Pain Jovifxavea5Zovx RiskModerate fall riskPerformance Status:1 - No physically [...] thrombocytosis.#2. Hypertension.#3. History of stroke.#4. Use of ayef-vba-llxtltj supplementsPlan:#1. 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 Platelet count is adequatelycontrolled.#2 anemia-Patient has worsening anemia with hemoglobin dropped from 10.3 9.9.In light of worsening leukopenia and neutropenia, discussed obtaining bonemarrow aspirate and biopsy but patient would like to defer this through thesummer and think about it again around November. Theref [facility] patient is beingscheduled for follow-up in November.3. [...] rce(s) Supporting Document(s) ID Date Data Source [id number] 07/19/2020 11:29:00 AM EDT [facility] Name Value Range Interpretation Code Description Data Berkley rce(s) Supporting Document(s) CBC W/AUTOMATED DIFF [facility] COMPLETE BLOOD COUNT Leukocytes [#/volume] in Blood by Automated count 2.4 10^3/uL 4.2 - 1 1.0 L [facility] Erythrocytes [#/volume] in Blood by Automated count 2.68 10^6/uL 4. 20 - 5.40 L [facility] Hemoglobin [Mass/volume] in Blood 9.9 g/dL 12.0 - 16.0 L [facility] Hematocrit [Volume Fraction] of Blood by Automated count 29.3 % 3 7.0 - 47.0 L [facility] Erythrocyte mean corpuscular volume [Entitic volume] b y Automated count 109.3 fL 81.0 - 101 H [facility] Erythrocyte mean corpuscular hemoglobin [Entitic mass] by Automated count 36.9 pg 27.0 - 34.0 H [facility] Erythrocyte mean corpuscular hemoglobin concentration [Mass/volume] by Automated count 33.8 g/dL 31.0 - 36.0 [facility] Erythrocyte distribution width [Ratio] by Automated count 14.6 % 11.5 - 14.5 H [facility] Platelets [#/volume] in Blood by Automated count 190 10^3/uL 150 - 45 0 [facility] Platelet mean volume [Entitic volume] in Blood by Automated count 11.8 fL 7.4 - 10.4 H [facility] Neutrophils/100 leukocytes in Blood by Automated count 48.6 % 37. 0 - 80.0 [facility] Lymphocytes/100 leukocytes in Blood by Manual count 38.7 % 25.0 - 40.0 [facility] Monocytes/100 leukocytes in Blood by Automated count 7.4 % 3.0 - 8.0 [facility] Eosinophils/100 leukocytes in Blood by Automated count 3.7 % 0.0 - 7.0 [facility] Basophils/100 leukocytes in Blood by Automated count 0.0 % 0.0 - 2.5 [facility] %IG 1.6 % 0.0 - 0.0 H [facility] al %NRBC 0.0 % 0.0 - 0.0 [facility] al Neutrophils [#/volume] in Blood by Automated count 1.18 10^3/uL 2.00 - 6.90 L [facility] Lymphocytes [#/volume] in Blood by Automated count 0.94 10^3/uL 0.60 - 3.40 [facility] Monocytes [#/volume] in Blood by Automated count 0.18 10^3/uL 0.00 - 0.90 [facility] Eosinophils [#/volume] in Blood by Automated count 0.09 10^3/uL 0.00 - 0.70 [facility] Basophils [#/volume] in Blood by Automated count 0.00 10^3/uL 0.00 - 0.20 [facility] #IG 0.04 10^3/uL 0.00 - 0.10 [facility] #NRBC 0.00 10^3/uL 0.00 - 0.00 [facility] ospital MANUAL DIFF SEE BELOW [facility] ital Segmented neutrophils/100 leukocytes in Blood by Manual count 48 % 37 - 80 [facility] %LYMPH 47 % 25 - 40 H [facility] al %MONO 2 % 3 - 8 L [facility] al %EOS 1 % 0 - 7 [facility] al RBC MORPH SEE BELOW [facility] al Anisocytosis [Presence] in Blood by Light microscopy 1+ MANA L: NONE SEEN A [facility] HYPO 1+ NORMAL: NONE SEEN A [facility] { SICKLE CELL (NORMAL: NONE SEEN ) Platelet adequacy [Presence] in Blood by Light microscopy NORMAL NORMAL: NORMAL [facility] COMMENT: ID Date Data Source [id number] 07/19/2020 10:43:00 AM EDT [facility] Name Value Range Interpretation Code Description Data Berkley rce(s) Supporting Document(s) COMPREHENSIVE METABOLIC PANEL [facility] COMPREHENSIVE METABOLIC PANEL Sodium [Moles/volume] in Serum or Plasma 140 mEq/L 134 - 153 [facility] Potassium [Moles/volume] in Serum or Plasma 4.6 mEq/L 3.6 - 5.0 [facility] Chloride [Moles/volume] in Serum or Plasma 104 mEq/L 98 - 107 [facility] Carbon dioxide, total [Moles/volume] in Serum or Plasma 29 MEQ/L 22 - 30 [facility] Glucose [Mass/volume] in Serum or Plasma 105 MG/DL 70 - 99 H [facility] BUN 23 MG/DL 7 - 21 [facility] Creatinine [Mass/volume] in Serum or Plasma 0.9 MG/DL 0.7 - 1.5 [facility] BUN/CREAT 26 8 - 27 [facility] al Protein [Mass/volume] in Serum or Plasma 6.7 G/DL 6.3 - 8.2 [facility] Albumin [Mass/volume] in Serum or Plasma 4.5 G/DL 3.9 - 5.0 [facility] Globulin [Mass/volume] in Serum by calculation 2.2 GM/DL 2.4 - 3.2 L [facility] A/G RATIO 2.0 0.8 - 2.0 [facility] Calcium [Mass/volume] in Serum or Plasma 9.3 MG/DL 8.4 - 10.2 [facility] Bilirubin.total [Mass/volume] in Serum or Plasma <0.7 MG/DL 0.2 - 1.3 [facility] Alkaline phosphatase [Enzymatic activity/volume] in Serum or Plasma 56 U/L 38 - 126 [facility] Aspartate aminotransferase [Enzymatic activity/volume] in Serum or Plasma 11 U/L 5 - 40 [facility] Alanine aminotransferase [Enzymatic activity/volume] in Seru m or Plasma 9 U/L 7 - 56 [facility] Anion gap 3 in Serum or Plasma 7.0 mmol/L 8.0 - 16.0 L [facility] AGE 84 [facility] GFR >60 mL/min [facility] ital AFR AMER GFR >60 [facility] Male GFR In terprentation [...] >32 mL/min Normal ID Date Data Source [id number] 04/07/2020 04:12:00 PM EST [facility] Name Value Range Interpretation Code Description Data Berkley rce(s) Supporting Document(s) Pathologist interpretation of Unspecified specimen tests COMMENT [facility] No significant immunophenotypic abnormal ity detected Annotation comment [Interpretation] Narrative WILL FOLLOW [facility] Lab Case Number WILL FOLLOW [facility] Specimen source [Identifier] of Unspecified specimen COMMENT [facility] Peripheral blood Assessment of Leukocytes COMMENT [facility] No monoclonal B cell population is detec constantino. kappa:lambda ratio 2.0There is no loss of, or aberrant expression of, the mata T cell antigens tosuggest a neoplastic T cell process.CD4:CD8 ratio 1.2CD57 positive T cells are increased but are composed of a mixture of YZ8tfjrhlvq cells and CD8 positive cells, most consistent with a reactiveprocess.Approximately 1% myeloblasts with normal phenotype are detected.There is no immunophenotypic evidence of abnormal myeloid maturation.Analysis of the leukocyte population shows: granulocytes 45%, monocytes 4%,lymphocytes 50%, blasts 1%, B cells 4%, T cells 30%, LGLs 19%, NK cells16%. Cellularity assessment [Interpretation] in Unspecified specimen by Flow cytometry (FC) Narrative WILL FOLLOW [facility] Viable cells/100 cells in Unspecified specimen COMMENT [facility] 92% Abnormal leukocytes/100 leukocytes in Un specified specimen by Flow cytometry (FC) WILL FOLLOW [facility] Analysis and [employer] COMMENT [facility] 8 color analysis with CD45/SSC Immunophenotyping study COMMENT [facility] CD2 Normal CD3 Mana lCD4 Normal CD5 NormalCD7 Normal CD8 JoruelUQ20 Normal CD11b HthrciVB65 Normal CD14 RxygbjUZ55 Normal CD19 HdevujPS88 Normal CD33 CzjvhaPR44 Normal CD38 BddrprJT15 Normal CD56 OczelqOD65 Normal CD117 NormalHLA-DR Normal KAPPA NormalLAMBDA Normal CD64 Normal Pathologist name COMMENT [facility] Mishel Brumfield M.D.WILL FOLLOWMAMI Wade Reason for referral (narrative) WILL FOLLOW [facility] Clinical information COMMENT [facility] A recent CBC has been reviewed in prepar ing this report.It shows anemia. Laboratory comment [Text] in Report Narrative COMMENT [facility] Each antibody in this assay was utilized [...] or for research. ID Date Data Source [id number] 04/02/2020 01:37:00 PM [facility] sylvia [address] [address] FOLLOW UP NOTENAME: ELIZABETH LAWRENCE CPHYSICIAN: MARLI RED, ROSANNAATE OF SERVICE: 03/31/20DATE OF : 33CCOUNT #: [id number]: ELIZABETH LAWRENCEDate: Mar 31OB: Dec [birth year]hysician: Francisco [...] 981k. OnDecember 25, 2013.She was admitted to [facility] on April 20, 2013 when shepresented [...] 13 Mutations. Testing for MPL W515 and FOPR287 mutation was also negative. There was no [...] risks of possible breach ofhealth information systems operator while using technology. 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 Ms. 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 She is an active drinker.Ms. LAWRENCE reports no contact with [facility].Ms. LAWRENCE reports the following support systems: [...] thrombocytosis.#2. Hypertension.#3. History of stroke.#4. Use of jrtr-ruo-lbiftxb supplementsPlan:#1. 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 Platelet count is adequatelycontrolled.#2 anemia-February 10, 2020 hemoglobin 11.2 hematocrit 33.4 WBC 2.9 [id number] differential neutrophils 33% lymphocytes 50% atypical lymphocytes [...] this time.Electronically signed by:Marli PennvaCC:Dr. Alber Bowden [place] Name Value Range Interpretation Code Description Data Berkley rce(s) Supporting Document(s) ID Date Data Source [id number] 03/24/2020 12:13:00 PM [facility] Name Value Range Interpretation Code Description Data Berkley rce(s) Supporting Document(s) COMPREHENSIVE METABOLIC PANEL [facility] COMPREHENSIVE METABOLIC PANEL Sodium [Moles/volume] in Serum or Plasma 137 mEq/L 134 - 153 [facility] Potassium [Moles/volume] in Serum or Plasma 4.4 mEq/L 3.6 - 5.0 [facility] Chloride [Moles/volume] in Serum or Plasma 100 mEq/L 98 - 107 [facility] Carbon dioxide, total [Moles/volume] in Serum or Plasma 30 MEQ/L 22 - 30 [facility] Glucose [Mass/volume] in Serum or Plasma 98 MG/DL 65 - 110 [facility] BUN 26 MG/DL 7 - 21 H [facility] al Creatinine [Mass/volume] in Serum or Plasma 1.0 MG/DL 0.7 - 1.5 [facility] BUN/CREAT 26 8 - 27 [facility] Protein [Mass/volume] in Serum or Plasma 6.3 G/DL 6.3 - 8.2 [facility] Albumin [Mass/volume] in Serum or Plasma 4.4 G/DL 3.9 - 5.0 [facility] Globulin [Mass/volume] in Serum by calculation 1.9 GM/DL 2.4 - 3.2 L [facility] A/G RATIO 2.3 0.8 - 2.0 H [facility] Calcium [Mass/volume] in Serum or Plasma 9.0 MG/DL 8.4 - 10.2 [facility] Bilirubin.total [Mass/volume] in Serum or Plasma <0.7 MG/DL 0.2 - 1.3 [facility] Alkaline phosphatase [Enzymatic activity/volume] in Serum or Plasma 57 U/L 38 - 126 [facility] Aspartate aminotransferase [Enzymatic activity/volume] in Serum or Plasma 10 U/L 5 - 40 [facility] Alanine aminotransferase [Enzymatic activity/volume] in Seru m or Plasma 6 U/L 7 - 56 L [facility] Anion gap 3 in Serum or Plasma 7.0 mmol/L 8.0 - 16.0 L [facility]GE 84 [facility] G[facility] 56 mL/min [facility] AFR AMER GFR >60 [facility] Male GFR In terprentation [...] >32 mL/min Normal ID Date Data Source [id number] 03/24/2020 11:30:00 AM EST [facility] Name Value Range Interpretation Code Description Data Berkley rce(s) Supporting Document(s) CBC W/AUTOMATED DIFF [facility] COMPLETE BLOOD COUNT Leukocytes [#/volume] in Blood by Automated count 2.9 10^3/uL 4.2 - 1 1.0 L [facility] Erythrocytes [#/volume] in Blood by Automated count 2.96 10^6/uL 4. 20 - 5.40 L [facility] Hemoglobin [Mass/volume] in Blood 10.3 g/dL 12.0 - 16.0 L [facility] Hematocrit [Volume Fraction] of Blood by Automated count 30.8 % 3 7.0 - 47.0 L [facility] Erythrocyte mean corpuscular volume [Entitic volume] b y Automated count 104.1 fL 81.0 - 101 H [facility] Erythrocyte mean corpuscular hemoglobin [Entitic mass] by Automated count 34.8 pg 27.0 - 34.0 H [facility] Erythrocyte mean corpuscular hemoglobin concentration [Mass/volume] by Automated count 33.4 g/dL 31.0 - 36.0 [facility] Erythrocyte distribution width [Ratio] by Automated count 15.1 % 11.5 - 14.5 H [facility] Platelets [#/volume] in Blood by Automated count 274 10^3/uL 150 - 45 0 [facility] Platelet mean volume [Entitic volume] in Blood by Automated count 11.2 fL 7.4 - 10.4 H [facility] Neutrophils/100 leukocytes in Blood by Automated count 41.4 % 37. 0 - 80.0 [facility] Lymphocytes/100 leukocytes in Blood by Manual count 44.7 % 25.0 - 40.0 H [facility] Monocytes/100 leukocytes in Blood by Automated count 7.8 % 3.0 - 8.0 [facility] Eosinophils/100 leukocytes in Blood by Automated count 4.4 % 0.0 - 7.0 [facility] Basophils/100 leukocytes in Blood by Automated count 0.3 % 0.0 - 2.5 [facility] %IG 1.4 % 0.0 - 0.0 H [facility] al %NRBC 0.0 % 0.0 - 0.0 [facility] Neutrophils [#/volume] in Blood by Automated count 1.21 10^3/uL 2.00 - 6.90 L [facility] Lymphocytes [#/volume] in Blood by Automated count 1.31 10^3/uL 0.60 - 3.40 [facility] Monocytes [#/volume] in Blood by Automated count 0.23 10^3/uL 0.00 - 0.90 [facility] Eosinophils [#/volume] in Blood by Automated count 0.13 10^3/uL 0.00 - 0.70 [facility] Basophils [#/volume] in Blood by Automated count 0.01 10^3/uL 0.00 - 0.20 [facility] #IG 0.04 10^3/uL 0.00 - 0.10 [facility]ital #NRBC 0.00 10^3/uL 0.00 - 0.00 [facility] ospital MANUAL DIFF SEE BELOW [facility] Segmented neutrophils/100 leukocytes in Blood by Manual count 42 % 37 - 80 [facility] Hospital %LYMPH 48 % 25 - 40 H [facility] %MONO 4 % 3 - 8 [facility] %EOS 6 % 0 - 7 [facility] RBC MORPH NOT INDICATED [facility] ID Date Data Source [id number] 02/20/2020 11:40:00 AM EST [facility] sy[facility]via Hatch [address] [address] FOLLOW UP NOTENAME: ELIZABETH LAWRENCE CPHYSICIAN: ROSANNA ORDONEZATE OF SERVICE: 02/19/20DATE OF : 31CCOUNT #: [id number]: ELIZABETH LAWRENCEDate: Feb 19, 2020DOB: [birth year]hysician: Francisco OrdonezBSilS.Age: 84Note Title: Hematology [...] [id number]. OnDecember 25, 2013.She was admitted to [facility] on April 20, 2013 when [...] 13 Mutations. Testing for MPL [id number] and [id number] mutation was also negative. There was no [...] risks of possible breach ofhealth information systems operator while using technology. 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 Ms. 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 She is an active drinker.Ms. LAWRENCE reports no contact with [facility].Ms. LAWRENCE reports the following support systems: [...] thrombocytosis.#2. Hypertension.#3. History of stroke.#4. Use of [id number] supplementsPlan:#1. 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 Platelet count is adequatelycontrolled.#2 anemia- February 10, 2020 hemoglobin 11.2 hematocrit 33.4 WBC 2.9 [id number] differential neutrophils 33% lymphocytes 50% atypical lymphocytes [...] this time.Electronically signed by:Marli PennvaCC:Dr. Alber [place]den [place] Name Value Range Interpretation Code Description Data Berkley rce(s) Supporting Document(s) ID Date Data Source [id number] 02/19/2020 07:04:00 PM [facility] Name Value Range Interpretation Code Description Data Berkley rce(s) Supporting Document(s) LAB - SPECIMEN REJECTION [facility] Specimen Integrity/Specimen Recollection The patient sample needs to be resubmitted for the following reason: Test(s) Ordered LEUKEMIA/LYMPHOMA [facility] Rejection Reason Sample Compromised [facility] { One or more of the tests you ordered cannot be performed.{ Please recollect, reorder, and resubmit if needed. ID Date Data Source [id number] 02/16/2020 01:03:00 PM [facility] Name Value Range Interpretation Code Description Data Berkley rce(s) Supporting Document(s) PT/PTT [facility] APPENDED REPORT Prothrombin time (PT) 14.2 SECONDS 11.0 - 15.5 [facility] INR in Platelet poor plasma by Coagulation assay 1.05 0.93 - 1. 23 [facility] \\BLDo\\INR INTERPRETATION\\BLDx\\ Therapeutic range for Coumadin and related oral anticoagulants. - International Normalized Ratio (INR): 2.0 - 3.0 for Venous Thrombosis, Pulmonary Embolus, Tissue heart valves, Acute [place] Atrial Fibrillation, Valvular heart disease and recurrent Systemic Embolism. - International Normalized Ratio (INR): 2.5 - 3.5 for Mechanical Prosthetic valve. aPTT in Blood by Coagulation assay 36.7 SECONDS 24.8 - 36.7 [facility] Therapeutic range for Coumadin and related oral anticoagulants. -International Normalized Ratio (INR): 2.0 - 3.0 for Venous Thrombosis, Pulmonary Embolus, Tissue heart valves, Acute [place] Atrial Fibrillation, Valvular heart disease and recurrent Systemic Embolism. -International Normalized Ratio (INR): 2.5 - 3.5 for Mechanical Prosthetic valve. 02/15/20.1105.TAD.COMPLETE 02/15/20.1105.TAD.to PIERO via fax 02/16/20.1106 .REVIEWED ID Date Data Source [id number] 02/15/2020 01:35:00 PM [facility] Name Value Range Interpretation Code Description Data Berkley rce(s) Supporting Document(s) PFA [facility] _PLATELET FUNCTION ASSAY_ [place] [address] CLIA # [id number] SEE SCANNED REPORT ID Date Data Source [id number] 02/15/2020 12:28:00 PM [facility] Name Value Range Interpretation Code Description Data Berkley rce(s) Supporting Document(s) CBC W/AUTOMATED DIFF [facility] COMPLETE BLOOD COUNT Leukocytes [#/volume] in Blood by Automated count 2.6 10^3/uL 4.2 - 1 1.0 L [facility] Erythrocytes [#/volume] in Blood by Automated count 3.18 10^6/uL 4. 20 - 5.40 L [facility] Hemoglobin [Mass/volume] in Blood 11.0 g/dL 12.0 - 16.0 L [facility] Hematocrit [Volume Fraction] of Blood by Automated count 32.9 % 3 7.0 - 47.0 L [facility] Erythrocyte mean corpuscular volume [Entitic volume] b y Automated count 103.5 fL 81.0 - 101 H [facility] Erythrocyte mean corpuscular hemoglobin [Entitic mass] by Automated count 34.6 pg 27.0 - 34.0 H [facility] Erythrocyte mean corpuscular hemoglobin concentration [Mass/volume] by Automated count 33.4 g/dL 31.0 - 36.0 [facility] Erythrocyte distribution width [Ratio] by Automated count 14.9 % 11.5 - 14.5 H [facility] Platelets [#/volume] in Blood by Automated count 275 10^3/uL 150 - 45 0 [facility] Platelet mean volume [Entitic volume] in Blood by Automated count 10.9 fL 7.4 - 10.4 H [facility] Neutrophils/100 leukocytes in Blood by Automated count 42.9 % 37. 0 - 80.0 [facility] Lymphocytes/100 leukocytes in Blood by Manual count 44.8 % 25.0 - 40.0 H [facility] Monocytes/100 leukocytes in Blood by Automated count 7.3 % 3.0 - 8.0 [facility] Eosinophils/100 leukocytes in Blood by Automated count 4.2 % 0.0 - 7.0 [facility] Basophils/100 leukocytes in Blood by Automated count 0.4 % 0.0 - 2.5 [facility] %IG 0.4 % 0.0 - 0.0 [facility] %NRBC 0.0 % 0.0 - 0.0 [facility] al Neutrophils [#/volume] in Blood by Automated count 1.11 10^3/uL 2.00 - 6.90 L [facility] Lymphocytes [#/volume] in Blood by Automated count 1.16 10^3/uL 0.60 - 3.40 [facility] Monocytes [#/volume] in Blood by Automated count 0.19 10^3/uL 0.00 - 0.90 [facility] Eosinophils [#/volume] in Blood by Automated count 0.11 10^3/uL 0.00 - 0.70 [facility] Basophils [#/volume] in Blood by Automated count 0.01 10^3/uL 0.00 - 0.20 [facility] #IG 0.01 10^3/uL 0.00 - 0.10 [facility] #NRBC 0.00 10^3/uL 0.00 - 0.00 [facility] MANUAL DIFF SEE BELOW [facility] Segmented neutrophils/100 leukocytes in Blood by Manual count 39 % 37 - 80 [facility] BAND 2 % 0 - 5 [facility] %LYMPH 46 % 25 - 40 H [facility] %MONO 2 % 3 - 8 L [facility] %EOS 5 % 0 - 7 [facility] GIANCARLO LYM 6 % [facility] RBC MORPH SEE BELOW [facility] Anisocytosis [Presence] in Blood by Light microscopy 1+ MANA L: NONE SEEN A [facility] Macrocytes [Presence] in Blood by Light microscopy 1+ NORMAL: NONE SEEN A [facility] { SICKLE CELL (NORMAL: NONE SEEN ) Platelet adequacy [Presence] in Blood by Light microscopy NORMAL NORMAL: NORMAL [facility] COMMENT: _MANY_GIANT_PLATELETS_OBSER VED 02/15/20.1228.TAD. ID Date Data Source [id number] 02/15/2020 11:07:00 AM [facility] Name Value Range Interpretation Code Description Data Berkley rce(s) Supporting Document(s) Fibrin D-dimer FEU [Mass/volume] in Platelet poor plasma 0.65 ug /mL 0.27 - 0.50 H [facility] ID Date Data Source [id number] 02/15/2020 11:07:00 AM [facility] Name Value Range Interpretation Code Description Data Berkley rce(s) Supporting Document(s) Fibrinogen [Mass/volume] in Platelet poor plasma by Co agulation assay 298.0 mg/dL 179 - 506 [facility] ID Date Data Source [id number] 02/11/2020 11:18:00 AM [facility] Name Value Range Interpretation Code Description Data Berkley rce(s) Supporting Document(s) COMPREHENSIVE METABOLIC PANEL [facility] COMPREHENSIVE METABOLIC PANEL Sodium [Moles/volume] in Serum or Plasma 141 mEq/L 134 - 153 [facility] Potassium [Moles/volume] in Serum or Plasma 4.7 mEq/L 3.6 - 5.0 [facility] Chloride [Moles/volume] in Serum or Plasma 106 mEq/L 98 - 107 [facility] Carbon dioxide, total [Moles/volume] in Serum or Plasma 30 MEQ/L 22 - 30 [facility] Glucose [Mass/volume] in Serum or Plasma 103 MG/DL 65 - 110 [facility] BUN 22 MG/DL 7 - 21 [facility] Creatinine [Mass/volume] in Serum or Plasma 1.0 MG/DL 0.7 - 1.5 [facility] BUN/CREAT 22 8 - 27 [facility] Protein [Mass/volume] in Serum or Plasma 6.3 G/DL 6.3 - 8.2 [facility] Albumin [Mass/volume] in Serum or Plasma 4.5 G/DL 3.9 - 5.0 [facility] Globulin [Mass/volume] in Serum by calculation 1.8 GM/DL 2.4 - 3.2 L [facility] A/G RATIO 2.5 0.8 - 2.0 [facility] Calcium [Mass/volume] in Serum or Plasma 9.6 MG/DL 8.4 - 10.2 [facility] Bilirubin.total [Mass/volume] in Serum or Plasma <0.7 MG/DL 0.2 - 1.3 [facility] Alkaline phosphatase [Enzymatic activity/volume] in Serum or Plasma 56 U/L 38 - 126 [facility] Aspartate aminotransferase [Enzymatic activity/volume] in Serum or Plasma 11 U/L 5 - 40 [facility] Alanine aminotransferase [Enzymatic activity/volume] in Seru m or Plasma 7 U/L 7 - 56 [facility] Anion gap 3 in Serum or Plasma 5.0 mmol/L 8.0 - 16.0 L [facility] AGE 84 y[facility] GFR 56 mL/min [facility] sylvia AFR AMER GFR >60 [facility] Male GFR In terprentation [...] >32 mL/min Normal ID Date Data Source [id number] 02/11/2020 10:46:00 AM EST [facility] Name Value Range Interpretation Code Description Data Berkley rce(s) Supporting Document(s) CBC W/AUTOMATED DIFF [facility] COMPLETE BLOOD COUNT Leukocytes [#/volume] in Blood by Automated count 2.7 10^3/uL 4.2 - 1 1.0 L [facility] Erythrocytes [#/volume] in Blood by Automated count 3.19 10^6/uL 4. 20 - 5.40 L [facility] Hemoglobin [Mass/volume] in Blood 10.9 g/dL 12.0 - 16.0 L [facility] Hematocrit [Volume Fraction] of Blood by Automated count 33.1 % 3 7.0 - 47.0 L [facility] Erythrocyte mean corpuscular volume [Entitic volume] b y Automated count 103.8 fL 81.0 - 101 H [facility] Erythrocyte mean corpuscular hemoglobin [Entitic mass] by Automated count 34.2 pg 27.0 - 34.0 H [facility] Erythrocyte mean corpuscular hemoglobin concentration [Mass/volume] by Automated count 32.9 g/dL 31.0 - 36.0 [facility] Erythrocyte distribution width [Ratio] by Automated count 14.8 % 11.5 - 14.5 H [facility] Platelets [#/volume] in Blood by Automated count 342 10^3/uL 150 - 45 0 [facility] Platelet mean volume [Entitic volume] in Blood by Automated count 10.4 fL 7.4 - 10.4 [facility] Neutrophils/100 leukocytes in Blood by Automated count 40.0 % 37. 0 - 80.0 [facility] Lymphocytes/100 leukocytes in Blood by Manual count 44.5 % 25.0 - 40.0 H [facility] Monocytes/100 leukocytes in Blood by Automated count 7.5 % 3.0 - 8.0 [facility] Eosinophils/100 leukocytes in Blood by Automated count 7.2 % 0.0 - 7.0 H [facility] Basophils/100 leukocytes in Blood by Automated count 0.4 % 0.0 - 2.5 [facility] %IG 0.4 % 0.0 - 0.0 [facility] %NRBC 0.0 % 0.0 - 0.0 [facility] al Neutrophils [#/volume] in Blood by Automated count 1.06 10^3/uL 2.00 - 6.90 L [facility] Lymphocytes [#/volume] in Blood by Automated count 1.18 10^3/uL 0.60 - 3.40 [facility] Monocytes [#/volume] in Blood by Automated count 0.20 10^3/uL 0.00 - 0.90 [facility] Eosinophils [#/volume] in Blood by Automated count 0.19 10^3/uL 0.00 - 0.70 [facility] Basophils [#/volume] in Blood by Automated count 0.01 10^3/uL 0.00 - 0.20 [facility] #IG 0.01 10^3/uL 0.00 - 0.10 [facility] #NRBC 0.00 10^3/uL 0.00 - 0.00 [facility] MANUAL DIFF SEE BELOW [facility] ital Segmented neutrophils/100 leukocytes in Blood by Manual count 43 % 37 - 80 [facility] %LYMPH 46 % 25 - 40 H [facility] al %MONO 7 % 3 - 8 [facility] %EOS 4 % 0 - 7 [facility] RBC MORPH SEE BELOW [facility] { SICKLE CELL 0 (NORMAL: NONE SEEN ) Platelet adequacy [Presence] in Blood by Light microscopy NORMAL NORMAL: NORMAL [facility] COMMENT: _FEW_GIANT_PLATELETS 02/11/20.1046.CLD. ID Date Data Source [id number] 02/10/2020 11:17:00 AM EST [facility] Name Value Range Interpretation Code Description Data Berkley rce(s) Supporting Document(s) COMPREHENSIVE METABOLIC PANEL [facility] COMPREHENSIVE METABOLIC PANEL Sodium [Moles/volume] in Serum or Plasma 138 mEq/L 134 - 153 [facility] Potassium [Moles/volume] in Serum or Plasma 4.8 mEq/L 3.6 - 5.0 [facility] Chloride [Moles/volume] in Serum or Plasma 103 mEq/L 98 - 107 [facility] Carbon dioxide, total [Moles/volume] in Serum or Plasma 30 MEQ/L 22 - 30 [facility] Glucose [Mass/volume] in Serum or Plasma 103 MG/DL 65 - 110 [facility] BUN 26 MG/DL 7 - 21 H [facility] Creatinine [Mass/volume] in Serum or Plasma 1.1 MG/DL 0.7 - 1.5 [facility] BUN/CREAT 24 8 - 27 [facility] Protein [Mass/volume] in Serum or Plasma 6.4 G/DL 6.3 - 8.2 [facility] Albumin [Mass/volume] in Serum or Plasma 4.5 G/DL 3.9 - 5.0 [facility] Globulin [Mass/volume] in Serum by calculation 1.9 GM/DL 2.4 - 3.2 L [facility] A/G RATIO 2.4 0.8 - 2.0 H [facility] Calcium [Mass/volume] in Serum or Plasma 9.5 MG/DL 8.4 - 10.2 [facility] Bilirubin.total [Mass/volume] in Serum or Plasma <0.7 MG/DL 0.2 - 1.3 [facility] Alkaline phosphatase [Enzymatic activity/volume] in Serum or Plasma 55 U/L 38 - 126 [facility] Aspartate aminotransferase [Enzymatic activity/volume] in Serum or Plasma 12 U/L 5 - 40 [facility] Alanine aminotransferase [Enzymatic activity/volume] in Seru m or Plasma 8 U/L 7 - 56 [facility] Anion gap 3 in Serum or Plasma 5.0 mmol/L 8.0 - 16.0 L [facility] AGE 84 yrs [facility] al NON-AA GFR 50 mL/min [facility] sylvia AFR AMER GFR >60 [facility] Male GFR In terprentation [...] >32 mL/min Normal ID Date Data Source [id number] 02/10/2020 11:10:00 AM EST [facility] Name Value Range Interpretation Code Description Data Berkley rce(s) Supporting Document(s) CBC W/AUTOMATED DIFF [facility] CORRECTE D REPORT COMPLETE BLOOD COUNT Leukocytes [#/volume] in Blood by Automated count 2.9 10^3/uL 4.2 - 1 1.0 L [facility] Erythrocytes [#/volume] in Blood by Automated count 3.25 10^6/uL 4. 20 - 5.40 L [facility] Hemoglobin [Mass/volume] in Blood 11.2 g/dL 12.0 - 16.0 L [facility] Hematocrit [Volume Fraction] of Blood by Automated count 33.4 % 3 7.0 - 47.0 L [facility] Erythrocyte mean corpuscular volume [Entitic volume] b y Automated count 102.8 fL 81.0 - 101 H [facility] Erythrocyte mean corpuscular hemoglobin [Entitic mass] by Automated count 34.5 pg 27.0 - 34.0 H [facility] Erythrocyte mean corpuscular hemoglobin concentration [Mass/volume] by Automated count 33.5 g/dL 31.0 - 36.0 [facility] Erythrocyte distribution width [Ratio] by Automated count 14.7 % 11.5 - 14.5 H [facility] Platelets [#/volume] in Blood by Automated count 346 10^3/uL 150 - 45 0 [facility] Platelet mean volume [Entitic volume] in Blood by Automated count 10.6 fL 7.4 - 10.4 H [facility] Neutrophils/100 leukocytes in Blood by Automated count 39.9 % 37. 0 - 80.0 [facility] Lymphocytes/100 leukocytes in Blood by Manual count 46.7 % 25.0 - 40.0 H [facility] Monocytes/100 leukocytes in Blood by Automated count 6.9 % 3.0 - 8.0 [facility] Eosinophils/100 leukocytes in Blood by Automated count 5.5 % 0.0 - 7.0 [facility] Basophils/100 leukocytes in Blood by Automated count 0.7 % 0.0 - 2.5 [facility] %IG 0.3 % 0.0 - 0.0 H [facility] %NRBC 0.0 % 0.0 - 0.0 [facility] Neutrophils [#/volume] in Blood by Automated count 1.15 10^3/uL 2.00 - 6.90 L [facility] Lymphocytes [#/volume] in Blood by Automated count 1.35 10^3/uL 0.60 - 3.40 [facility] Monocytes [#/volume] in Blood by Automated count 0.20 10^3/uL 0.00 - 0.90 [facility] Eosinophils [#/volume] in Blood by Automated count 0.16 10^3/uL 0.00 - 0.70 [facility] Basophils [#/volume] in Blood by Automated count 0.02 10^3/uL 0.00 - 0.20 [facility] #IG 0.01 10^3/uL 0.00 - 0.10 [facility] #NRBC 0.00 10^3/uL 0.00 - 0.00 [facility] ospital MANUAL DIFF SEE BELOW [facility] ital Segmented neutrophils/100 leukocytes in Blood by Manual count 33 % 37 - 80 L [facility] %LYMPH 50 % 25 - 40 H [facility] %MONO 4 % 3 - 8 [facility] %EOS 6 % 0 - 7 [facility] Blasts/100 leukocytes in Blood by Manual count 0 % [facility] GIANCARLO LYM 7 % [facility] Nucleated erythrocytes/100 erythrocytes in Blood by Manual count 0 % [facility] RBC MORPH NOT INDICATED [facility] FOLLOWING RESULTS REPORTED IN ERROR MANUAL DIFF { CORRECT BLASTS NRBC { CORRECT Procedure Social History Code Duration Value Status Description Data Source(s ) Alcohol intake 12/22/2020 12:00:00 AM EDT Current drinker of al cohol (finding) completed Current drinker of alcohol (finding) [facility] Alcohol intake 12/16/2020 12:00:00 AM EDT Current drinker of al cohol (finding) completed Current drinker of alcohol (finding) [facility] Smoking 12/06/2020 12:00:00 AM EDT Never Smoker completed Never S moker [id number] ([facility]) Alcohol intake 11/22/2020 12:00:00 AM EDT Current drinker of al cohol (finding) completed Current drinker of alcohol (finding) [facility] Alcohol intake 11/21/2020 12:00:00 AM EDT Current drinker of al cohol (finding) completed Current drinker of alcohol (finding) [facility] Tobacco use and exposure 10/26/2020 12:00:00 AM EDT Never used co mpleted Never used [facility] Smoking 10/26/2020 12:00:00 AM EDT Never smoker completed Never s moker [facility] Alcohol intake 10/26/2020 12:00:00 AM EDT Current drinker of al cohol (finding) completed Current drinker of alcohol (finding) [facility] Alcohol intake 07/13/2020 12:00:00 AM EDT Current drinker of al cohol (finding) completed Current drinker of alcohol (finding) [facility] Vital Signs ID Date Data Source UNK Name Value Range Interpretation Code Description Data Source(s) Systolic blood pressure 139 mm[Hg] 139 mm[Hg] [facility] Body temperature 36.94 Halie 36.94 Halie [facility] Diastolic blood pressure 90 mm[Hg] 90 mm[Hg] [facility] Respiratory rate 16 /min 16 /min [facility] Oxygen saturation in Arterial blood by Pulse oximetry 96 % 96 % [facility] Heart rate 97 /min 97 /min [facility] Body weight 60.555 kg 60.555 kg [facility] Body mass index (BMI) [Ratio] 22.22 kg/m2 22.22 kg/m2 [facility] Body height 165.1 cm 165.1 cm [facility] Systolic blood pressure 110 mm[Hg] 110 mm[Hg] [facility] Diastolic blood pressure 55 mm[Hg] 55 mm[Hg] [facility] Heart rate 100 /min 100 /min [facility] Body height 165.1 cm 165.1 cm [facility] Body weight 61.281 kg 61.281 kg [facility] Body mass index (BMI) [Ratio] 22.48 kg/m2 22.48 kg/m2 [facility] Oxygen saturation in Arterial blood by Pulse oximetry 96 % 96 % [facility] Body weight 134.00 [lb_av] 134.00 [lb_av] MEDEN T ([facility], ) Body height 60 [in_i] 60 [in_i] [facility] ([facility], ) 5'0" [place] body weight 100 [lb_av] 100 [lb_av] MEDEN T ([facility], ) Body weight 60.782 kg 60.782 kg [facility] ([facility]) Body surface area Derived from formula 1.57 m2 1.57 m2 [facility] ([facility]) Body mass index (BMI) [Ratio] 26.2 kg/m2 26.2 k g/m2 [facility] ([facility], ) Systolic blood pressure 116 mm[Hg] 116 mm[facility]Hg] [facility] Diastolic blood pressure 68 mm[Hg] 68 mm[Hg] [facility] ([facility], ) Body temperature 98.4 [degF] 98.4 [degF] [facility] ([facility], ) Systolic blood pressure 110 mm[Hg] 110 mm[Hg] [facility] Diastolic blood pressure 60 mm[Hg] 60 mm[Hg] [facility] Heart rate 92 /min 92 /min [facility] Body height 152.4 cm 152.4 cm [facility] Body weight 58.06 kg 58.06 kg [facility] Body mass index (BMI) [Ratio] 25.00 kg/m2 25.00 kg/m2 [facility] Oxygen saturation in Arterial blood by Pulse oximetry 96 % 96 % [facility] Systolic blood pressure 132 mm[Hg] 132 mm[Hg] [facility] Body temperature 36.61 Halie 36.61 Halie [facility] Respiratory rate 16 /min 16 /min [facility] Oxygen saturation in Arterial blood by Pulse oximetry 95 % 95 % [facility] Diastolic blood pressure 72 mm[Hg] 72 mm[Hg] [facility] Heart rate 87 /min 87 /min [facility] [facility] height 152.4 cm 152.4 cm [facility] Body weight 59.3 kg 59.3 kg [facility] Body mass index (BMI) [Ratio] 25.53 kg/m2 25.53 kg/m2 [facility] Systolic blood pressure 118 mm[Hg] 118 mm[Hg] [facility] Diastolic blood pressure 64 mm[Hg] 64 mm[Hg] [facility] Heart rate 99 /min 99 /min [facility] Body height 12.7 cm 12.7 cm [facility] Body weight 59.421 kg 59.421 kg [facility] Body mass index (BMI) [Ratio] 3684.12 kg/m2 368 4.12 kg/m2 [facility] Oxygen saturation in Arterial blood by Pulse oximetry 98 % 98 % [facility] Systolic blood pressure 120 mm[Hg] 120 mm[Hg] [facility] Diastolic blood pressure 70 mm[Hg] 70 mm[Hg] [facility] Heart rate 82 /min 82 /min [facility] Body height 152.4 cm 152.4 cm [facility] Body weight 63.05 kg 63.05 kg [facility] Body mass index (BMI) [Ratio] 27.15 kg/m2 27.15 kg/m2 [facility] Oxygen saturation in Arterial blood by Pulse oximetry 93 % 93 % [facility] Patient Treatment Plan of Care Planned Activity Planned Date Details Description Data Source (s) Bisacodyl 10 MG Rectal Suppository 12/24/2020 09:00:00 AM EDT [facility] POLYETHYLENE GLYCOL 3350 142 MG/ML Oral Solution 12/23/2020 07:00:0 0 AM EDT [facility] clopidogrel 75 MG Oral Tablet 12/23/2020 12:00:00 AM EDT [facility] Docusate Sodium 100 MG Oral Capsule 12/22/2020 09:00:00 AM EDT [facility] Amoxicillin 500 MG Oral Capsule 12/22/2020 12:00:00 AM EDT [facility] ondansetron (ZOFRAN) injection 4 mg 2020 06:20:43 PM EDT [facility] 2 ML Metoclopramide 5 MG/ML Prefilled Syringe 2020 06:20:43 P M EDT [facility] 10 ML Atropine Sulfate 0.1 MG/ML Prefilled Syringe 2020 06 :20:42 PM EDT [facility] Metronidazole 0.0075 MG/MG Topical Gel 2020 04:00:00 PM EDT [facility] lidocaine (ASPERCREME) 4 % 1 patch 2020 03:33:22 PM EDT [facility] Metronidazole 7.5 MG/ML Topical Cream 12/06/2020 12:00:00 AM EDT eCW1 ([facility]) Minocycline 100 MG Oral Capsule 12/06/2020 12:00:00 AM EDT eCW1 ([facility]) normal saline flush 0.9 % injection 3 mL 11/21/2020 03:00:00 PM EDT [facility] normal saline flush 0.9 % injection 3 mL 11/21/2020 02:00:00 PM EDT [facility] normal saline flush 0.9 % injection 3 mL 11/21/2020 02:00:00 PM EDT [facility] Furosemide 20 MG Oral Tablet 10/03/2020 12:00:00 AM EDT [facility] 24 HR metoprolol succinate 50 MG Extended Release Oral Tablet 10/05/2019 12:00:00 AM EDT [facility] Isosorbide Dinitrate 20 MG Oral Tablet 10/02/2019 12:00:00 AM EDT [facility] Cyclosporine 0.5 MG/ML Ophthalmic Suspension [Restasis ] 07/07/2019 12:00:00 AM EDT [facility] Hydrochlorothiazide 25 MG Oral Tablet [facility] clopidogrel 75 MG Oral Tablet [facility] CALCIUM PO [facility] Multiple Vitamins-Minerals (ZINC PO) [facility] VITAMIN D, CHOLECALCIFEROL, PO [facility] Ascorbic Acid (JB-C PO) [facility]
[2020-12-27] VITALS (8 sets, daily range): BP systolic 121–143; BP diastolic 63–68
[2020-12-27 00:12] LABS: INR 1.14
[2020-12-27 00:15] LABS: D-DIMER QUANT 524.22 ng/ml (<500)
[2020-12-27 01:00] LABS: RSV AMPLIFICATION NEGATIVE (NEGATIVE)
--- NOTE | 2020-12-27 01:15 | ECGEPIP ---
[facility] - ED Test Date: 2020-12-26 Pat Name: ELIZABETH LAWRENCE Department: Room: - Gender: Female [employer]: OTTO : [id number] Requested By: HAL Colin Order Number: [id number] Reading MD: Hal Choe Measurements Intervals [place] Rate: 100 P: 53 SC: 194 QRS: 30 QRSD: 110 T: 42 QT: 376 QTc: 485 Interpretive Statements Sinus rhythm with premature atrial complexes Moderate voltage criteria for LVH, may be normal variant septal infarct, likey old artifact Similar to tracing done 04-28-19 Electronically Signed on 12-27-2020 1:14:54 EDT by Hal Choe
[2020-12-27] MEDS ORDERED: LIDO1PAD TOP (01:40)
[2020-12-27] MEDS ORDERED: FURO20TA2 PO (01:40)
[2020-12-27] MEDS ORDERED: CLOP75TA2 PO (01:40)
[2020-12-27] MEDS ORDERED: HOME MED LIST COMPLETE! XX SCH (01:45)
[2020-12-27] MEDS ORDERED: LIDOCAINE 5% (LIDODERM) PATCH TOP PRN (02:45)
[2020-12-27 08:29] LABS: HEMATOCRIT 23.8 % (36.0-47.0); HEMOGLOBIN 7.9 g/dl (12.0-15.5); MEAN CORPUSCULAR HEMOGLOBIN 32.6 pg (27.0-33.0); MEAN CORPUSCULAR HGB CONC 33.2 g/dl (32.0-36.5); MEAN CORPUSCULAR VOLUME 98.3 fl (80.0-96.0); PLATELET COUNT, AUTOMATED 126 10^3/uL (150-450); RED BLOOD COUNT 2.42 10^6/uL (4.00-5.40); WHITE BLOOD COUNT 2.2 10^3/uL (4.0-10.0)
[2020-12-27 08:32] LABS: HEMATOCRIT 23.8 % (36.0-47.0)
[2020-12-27 08:39] LABS: VITAMIN B12 LEVEL 340 PG/ML (247-911)
[2020-12-27 08:46] LABS: BLOOD UREA NITROGEN 18 MG/DL (7-18); CALCIUM LEVEL 7.9 MG/DL (8.8-10.2); CARBON DIOXIDE LEVEL 26 MEQ/L (21-32); CHLORIDE LEVEL 110 MEQ/L (98-107); CREATININE FOR GFR 0.85 MG/DL (0.55-1.30); GLOMERULAR FILTRATION RATE > 60.0 (>32); GLUCOSE, FASTING 98 MG/DL (70-100); POTASSIUM SERUM 4.2 MEQ/L (3.5-5.1); SODIUM LEVEL 143 MEQ/L (136-145)
[2020-12-27] MEDS ORDERED: OYSTER SHELL CALCIUM 500 MG TAB PO SCH (09:00)
[2020-12-27] MEDS ORDERED: CLOPIDOGREL 75 MG TAB PO SCH (09:00)
[2020-12-27] MEDS ORDERED: ISOSORBIDE DIN (ISORDIL) 10 MG TAB PO SCH (09:00)
[2020-12-27] MEDS ORDERED: FERROUS GLUCONATE 324 MG TAB PO SCH (09:00)
[2020-12-27] MEDS ORDERED: FUROSEMIDE 20 MG TAB PO SCH (09:00)
--- NOTE | 2020-12-27 19:28 | DS.PDOC ---
Discharge Summary General Date of Admission Dec 26, 2020 at 23:23 Date of Discharge 12/28/19 Discharge Summary PROCEDURES PERFORMED DURING STAY: [None]. 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 HISTORY OF PRESENT ILLNESS: an 85 yr old F had TAVR done at [facility] last week. Today she presented to our facility w c/o transient memory loss, fatigue and headache. Shortly after her arrival in the ER her symptoms resolved. At the time of my assessment she attributed her symptoms to anxiety and stress; her best friend has been dealing with dementia, her grandson, who accompanied her to the hospital, is moving to [place], and she lives alone. 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 Today her Hg was 7.4; obtained records from [facility] which showed that the patients Hg was 8.5. Hemoccult was negative. discussed the case with the Surgeon who performed the TAVR, he didnt recommend transfer. HOSPITAL COURSE: During the hospital stay patient received 1 unit of blood transfusion. Most likely her pancytopenia was associated with MDS. In the morning hemoglobin stable. Patient stated that she feels better today. DISCHARGE MEDICATIONS: Please see below. ALLERGIES: Please see below. PHYSICAL EXAMINATION ON DISCHARGE: GENERAL APPEARANCE: well-nourished and developed/ slightly anxious HEENT: EOMI / MMM&P / prominent JVP CARDIOVASCULAR: RRR/ systolic murmur LUNGS: CTAB on RA MUSCULOSKELETAL: NCAT / BRIAN x 4 extremities INTEGUMENT: slightly pale / not flushed or diaphoretic NEUROLOGICAL: CN 2-12 grossly intact / speech not dysarthric PSYCHIATRIC: A&O / able to understand and follow all commands LABORATORY DATA: Please see below. PROGNOSIS: Fair ACTIVITY: [As tolerated]. DIET: Cardiac DISPOSITION: 01 Home, Self-Care. DISCHARGE INSTRUCTIONS: Follow-up with oncologist/medicaid eligibility specialist and PCP DISCHARGE CONDITION: [Stable]. TIME SPENT ON DISCHARGE: 20 minutes. Vital Signs/I&Os Vital Signs Date Time Temp Pulse Resp B/P (MAP) Pulse Ox O2 Delivery O2 Flow Rate FiO2 12/27/20 09:11 133/66 12/27/20 06:36 99.0 88 17 94 Room Air I&O- Last 24 Hours up to 6 AM 12/27/20 06:00 Intake Total 400 ml Output Total 200 ml Balance 200 ml Laboratory Data Labs 24H Laboratory Tests 2 12/26/20 19:28: Urine Color YELLOW, Urine Appearance CLEAR, Urine pH 5.0, Urine Specific [place] 1.015, Urine Protein NEGATIVE, Urine Glucose (UA) NEGATIVE, Urine Ketones NE GATIVE, Urine Blood NEGATIVE, Urine Nitrite NEGATIVE, Urine Bilirubin NEGATIVE, Urine Urobilinogen 0.2, Urine Leukocyte Esterase NEGATIVE, Urine WBC (Auto) 2, Urine RBC (Auto) 1, Urine Hyaline Casts (Auto) 0, Urine Bacteria (Auto) NEGATIVE, Urine Squamous Epithelial Cells 1, Urine Sperm (Auto) , Lactic Acid Level 0.5, Ammonia 14, Urine Opiates Screen NEGATIVE, Urine Methadone Screen NEGATIVE, Urine Barbiturates Screen NEGATIVE, Urine Phencyclidine Screen NEGATIVE, Urine Amphetamines Screen NEGATIVE, Urine Benzodiazepines Screen NEGATIVE, Urine Cocaine Metabolite Screen NEGATIVE, Urine Cannabinoids Screen NEGATIVE 12/26/20 23:44: Prothrombin Time 15.0H, Prothromb Time International Ratio 1.14, Activated Partial Thromboplast Time 39.0H, Fibrinogen 316, D-Dimer, Quantitative 524.22H, Coronavirus (COVID-19)(PCR) NEGATIVE, Influenza Type A (RT-PCR) NEGATIVE, Influenza Type B (RT-PCR) NEGATIVE, Respiratory Syncytial Virus (PCR) NEGATIVE 12/27/20 07:52: Nucleated Red Blood Cells % (auto) 0.0, Anion Gap 7L, Glomerular Filtration Rate > 60.0, Calcium Level 7.9L, Red Blood Cell Folate 1773H CBC/BMP Laboratory Tests 12/27/20 07:52 Microbiology Microbiology 12/26/20 Blood Culture, Received Pending 12/26/20 Blood Culture, Received Pending Discharge Medications Scheduled Anagrelide HCl (Anagrelide HCl) 0.5 Mg Capsule, 1.5 MG PO DAILY, (Reported) Calcium Carbonate (Oyster Shell Calcium) 500 Mg Tablet, 500 MG PO BID, (Reported) Clopidogrel Bisulfate (Clopidogrel) 75 Mg Tablet, 75 MG PO DAILY, (Reported) Ferrous Gluconate (Ferrous Gluconate) 324 Mg Tablet, 324 MG PO DAILY, (Reported) Furosemide (Furosemide) 20 Mg Tablet, 30 MG PO DAILY, (Reported) Isosorbide Dinitrate (Isosorbide Dinitrate) 5 Mg Tablet, 5 MG PO BID, (Reported) Scheduled PRN Lidocaine (Lidocaine) 5% Adh..patch, 1 PATCH TOP DAILY PRN for MILD PAIN (PS 1- 4), (Reported) 1/2 PATCH ON BOTH HIPS Allergies Coded Allergies: No Known Drug Allergies (Verified Allergy, Unknown, 03/29/19) RAMESH WORLEY DO Dec 27, 2020 19:28
[2020-12-27] MEDS ORDERED: **NOTE PATIENT COMMENT** MISC XX PRN (21:00)
[2020-12-29 17:07] LABS: HAPTOGLOBIN < 10 mg/dL (41-333); SOLUBLE TRANSFERRIN RECEPTOR 5.9 nmol/L (12.2-27.3); TRANSFERRIN 108 mg/dL (149-313)
== END 2020-12-27 14:05 | disposition home or self-care (01) | DRG 811 ==
LOC: M ED 17:22 → M ED INP 23:23 → ENRESERV 12-27 01:31 → M MSPAV 12-27 03:05
PROVIDERS: ADMIT Internal Medicine; ATTEND Internal Medicine
PROC: 30233N1 Transfusion of Nonautologous Red Blood Cells into Peripheral Vein, Percutaneous Approach (ICD-10-PCS; principal; 2020-12-26)
DX: D64.9 Anemia, unspecified (principal); G93.41 Metabolic encephalopathy; I67.82 Cerebral ischemia; D46.9 Myelodysplastic syndrome, unspecified; I10 Essential (primary) hypertension; H91.90 Unspecified hearing loss, unspecified ear; M81.0 Age-related osteoporosis without current pathological fracture; R26.81 Unsteadiness on feet; M62.84 Sarcopenia; Z79.899 Other long term (current) drug therapy; Z20.822 Contact with and (suspected) exposure to COVID-19; Z86.73 Personal history of transient ischemic attack (TIA), and cerebral infarction without residual deficits

== ENCOUNTER → 2021-02-09 | Outpatient (CLI) | payer MEDICARE, OTHER ==
[~2021-02-09] MED LIST changes: +AMOX500C; +CLOP75TA2; +CLOP75TA2 PO; +FURO20TA2 PO; +LIDO1PAD TOP; +OYST500T92 PO; +VITA500C19 PO
== END ==
LOC: M LABSMTC 10:29
PROVIDERS: ATTEND Internal Medicine Hematology & Oncology
DX: Z01.812 Encounter for preprocedural laboratory examination (principal); Z20.822 Contact with and (suspected) exposure to COVID-19

== ENCOUNTER 2021-04-13 23:52 | Inpatient (IN) | payer MEDICARE, OTHER ==
[~2021-04-13] VITALS: Ht 152.4 cm; Wt 69.0 kg
[~2021-04-13 23:52] MED LIST changes: -OYST500T92 PO; -VITA500C19 PO
[2021-04-14] VITALS (10 sets, daily range): BP systolic 74–185; BP diastolic 44–91; O2SAT 96–97
[2021-04-14] MEDS ORDERED: NS 1,000 ML IV ONE ×3 (00:30→19:00)
[2021-04-14 01:02] LABS: EOS % 0.3 % (0.0-3.0); HEMATOCRIT 24.3 % (36.0-47.0); HEMOGLOBIN 8.2 g/dl (12.0-15.5); LYMPH # 0.6 10^3/uL (1.5-5.0); LYMPH % 15.6 % (24.0-44.0); MEAN CORPUSCULAR HEMOGLOBIN 35.5 pg (27.0-33.0); MEAN CORPUSCULAR HGB CONC 33.7 g/dl (32.0-36.5); MEAN CORPUSCULAR VOLUME 105.2 fl (80.0-96.0); MONO # 0.2 10^3/uL (0.0-0.8); MONO % 6.5 % (2.0-8.0); NEUTROPHILS # 2.7 10^3/uL (1.5-8.5); NEUTROPHILS % 76.7 % (36.0-66.0); PLATELET COUNT, AUTOMATED 167 10^3/uL (150-450); RED BLOOD COUNT 2.31 10^6/uL (4.00-5.40); WHITE BLOOD COUNT 3.5 10^3/uL (4.0-10.0)
[2021-04-14] MEDS ORDERED: ONDANSETRON 4MG/2ML VIAL IV ONE (01:05)
[2021-04-14 01:29] LABS: ALBUMIN 3.6 GM/DL (3.2-5.2); BILIRUBIN,DIRECT 0.3 MG/DL (0.0-0.2); BILIRUBIN,TOTAL 0.9 MG/DL (0.2-1.0); CALCIUM LEVEL 8.6 MG/DL (8.8-10.2); CREATININE FOR GFR 1.07 MG/DL (0.55-1.30); GLOMERULAR FILTRATION RATE 51.6 (>32); POTASSIUM SERUM 3.9 MEQ/L (3.5-5.1); TOTAL PROTEIN 6.3 GM/DL (6.4-8.2)
[2021-04-14 01:55] LABS: MB/CK RELATIVE INDEX 8.33 (< OR =4)
[2021-04-14] MEDS: MORPHINE 2 MG/ML 1ML VIAL (J2270) IV PRN ×2 (02:31→06:42)
[2021-04-14] MEDS ORDERED: ISOVUE-370 76% 100ML VIAL As Ordered ONE (02:38)
[2021-04-14 02:50] LABS: CK-MB VALUE MASS < 1.0 NG/ML (<3.6); CPK CREATINE PHOSPHOKINASE 21 U/L (26-192); MB/CK RELATIVE INDEX 4.76 (< OR =4)
[2021-04-14] MEDS ORDERED: ONDANSETRON 4MG/2ML VIAL IV PRN (04:50)
[2021-04-14] MEDS ORDERED: MORPHINE 2 MG/ML 1ML VIAL (J2270) IV PRN (04:50)
[2021-04-14] MEDS ORDERED: MORPHINE 4 MG/ML 1ML VIAL/SYRINGE (J2270) IV PRN (04:50)
[2021-04-14] MEDS: NS 1,000 ML IV SCH ×2 (04:59→16:09)
[2021-04-14] MEDS ORDERED: OYST500T92 PO (06:39)
[2021-04-14] MEDS ORDERED: VITA500C19 PO (06:39)
[2021-04-14] MEDS ORDERED: HOME MED LIST COMPLETE! XX SCH (06:40)
[2021-04-14] MEDS ORDERED: MORPHINE 2 MG/ML 1ML VIAL (J2270) IV ONE (07:45)
[2021-04-14] MEDS ORDERED: amLODIPine 5 MG TAB PO ONE (08:20)
[2021-04-14] MEDS ORDERED: HYDROMORPHONE HCL 0.5 MG/ 0.5 ML SYRINGE (J1170 PER 1) IV PRN (08:20)
[2021-04-14 08:25] LABS: HEMATOCRIT 24.9 % (36.0-47.0); HEMOGLOBIN 8.2 g/dl (12.0-15.5); MEAN CORPUSCULAR HEMOGLOBIN 34.3 pg (27.0-33.0); MEAN CORPUSCULAR HGB CONC 32.9 g/dl (32.0-36.5); MEAN CORPUSCULAR VOLUME 104.2 fl (80.0-96.0); PLATELET COUNT, AUTOMATED 152 10^3/uL (150-450); RED BLOOD COUNT 2.39 10^6/uL (4.00-5.40); WHITE BLOOD COUNT 5.9 10^3/uL (4.0-10.0)
[2021-04-14 08:36] LABS: INR 1.06; PROTHROMBIN TIME 14.2 SECONDS (12.7-14.5)
[2021-04-14] MEDS: HYDROMORPHONE HCL 0.5 MG/ 0.5 ML SYRINGE (J1170 PER 1) IV PRN ×2 (08:47→11:36)
[2021-04-14 08:52] LABS: CALCIUM LEVEL 8.8 MG/DL (8.8-10.2); CREATININE FOR GFR 1.01 MG/DL (0.55-1.30); GLOMERULAR FILTRATION RATE 55.2 (>32); POTASSIUM SERUM 3.9 MEQ/L (3.5-5.1)
[2021-04-14 08:54] LABS: PERCENT SATURATION 86.8 % (13.2-45.0)
[2021-04-14 18:14] LABS: BASO % 0.2 % (0.0-1.0); HEMATOCRIT 29.7 % (36.0-47.0); HEMOGLOBIN 9.6 g/dl (12.0-15.5); LYMPH # 0.9 10^3/uL (1.5-5.0); LYMPH % 8.3 % (24.0-44.0); MEAN CORPUSCULAR HEMOGLOBIN 34.5 pg (27.0-33.0); MEAN CORPUSCULAR HGB CONC 32.3 g/dl (32.0-36.5); MEAN CORPUSCULAR VOLUME 106.8 fl (80.0-96.0); NEUTROPHILS # 9.2 10^3/uL (1.5-8.5); NEUTROPHILS % 80.8 % (36.0-66.0); PLATELET COUNT, AUTOMATED 203 10^3/uL (150-450); RED BLOOD COUNT 2.78 10^6/uL (4.00-5.40); WHITE BLOOD COUNT 11.3 10^3/uL (4.0-10.0)
[2021-04-14] MEDS: PIPERACILLIN/TAZOBACTAM SOD 3.375 GM in D5W MINI-BAG PLUS 50 ML IV SCH ×2 (18:36→23:47)
[2021-04-14 18:56] LABS: ALBUMIN 3.1 GM/DL (3.2-5.2); BILIRUBIN,TOTAL 0.5 MG/DL (0.2-1.0); CALCIUM LEVEL 8.4 MG/DL (8.8-10.2); CREATININE FOR GFR 1.9 MG/DL (0.55-1.30); GLOMERULAR FILTRATION RATE 26.6 (>32); POTASSIUM SERUM 4.3 MEQ/L (3.5-5.1); TOTAL PROTEIN 5.6 GM/DL (6.4-8.2)
[2021-04-14] MEDS ORDERED: VANCOMYCIN HCL 750 MG, VIAL MATE ADAPTER 1 EACH in NS 250 ML IV ONE (20:00)
[2021-04-14] MEDS ORDERED: VANCOMYCIN HCL 500 MG in D5W MINI-BAG PLUS 100 ML IV ONE (21:00)
[2021-04-14] MEDS: HEPARIN SOD (PORCINE) 5000UNITS/ML 1ML VIAL/SYRINGE SQ SCH (21:42)
[2021-04-14] MEDS: PANTOPRAZOLE 40MG VIAL (C9113 PER 1) IV SCH (22:03)
[2021-04-15] VITALS: BP 110/58
[2021-04-15] MEDS: NS 1,000 ML IV SCH ×3 (00:51→20:30)
[2021-04-15] MEDS: PIPERACILLIN/TAZOBACTAM SOD 3.375 GM in D5W MINI-BAG PLUS 50 ML IV SCH ×4 (05:32→23:55)
[2021-04-15] MEDS: HEPARIN SOD (PORCINE) 5000UNITS/ML 1ML VIAL/SYRINGE SQ SCH ×3 (05:33→22:29)
[2021-04-15 06:40] LABS: HEMATOCRIT 26.7 % (36.0-47.0); HEMOGLOBIN 8.4 g/dl (12.0-15.5); MEAN CORPUSCULAR HEMOGLOBIN 34.1 pg (27.0-33.0); MEAN CORPUSCULAR HGB CONC 31.5 g/dl (32.0-36.5); MEAN CORPUSCULAR VOLUME 108.5 fl (80.0-96.0); PLATELET COUNT, AUTOMATED 154 10^3/uL (150-450); RED BLOOD COUNT 2.46 10^6/uL (4.00-5.40)
[2021-04-15 06:57] LABS: CALCIUM LEVEL 7.7 MG/DL (8.8-10.2); CREATININE FOR GFR 2.65 MG/DL (0.55-1.30); GLOMERULAR FILTRATION RATE 18.1 (>32); POTASSIUM SERUM 4.7 MEQ/L (3.5-5.1)
[2021-04-15] MEDS: PANTOPRAZOLE 40MG VIAL (C9113 PER 1) IV SCH ×2 (09:12→20:30)
[2021-04-15 09:31] LABS: APPEARANCE, URINE HAZY (CLEAR); BACTERIA, URINE AUTO NEGATIVE (NEGATIVE); BILIRUBIN, URINE AUTO NEGATIVE (NEGATIVE); BLOOD, URINE BLOOD NEGATIVE (NEGATIVE); COLOR, URINE YELLOW (YELLOW); GLUCOSE, URINE (UA) AUTO NEGATIVE (NEGATIVE); KETONE, URINE AUTO NEGATIVE (NEGATIVE); LEUKOCYTE ESTERASE, URINE AUTO NEGATIVE (NEGATIVE); MUCUS, URINE SMALL (NEGATIVE); NITRITE, URINE AUTO NEGATIVE (NEGATIVE); PROTEIN, URINE AUTO NEGATIVE (NEGATIVE); RBC, URINE AUTO 1 /HPF (0-3); SPECIFIC GRAVITY URINE AUTO 1.028 (1.002-1.035); SQUAMOUS EPITHELIAL CELL UR AU 1 /HPF (0-6); UROBILINOGEN, URINE AUTO 0.2 mg/dL (0.0-2.0); WBC, URINE AUTO 0 /HPF (0-3)
[2021-04-15 10:00] VITALS: BP 109/59
[2021-04-15] MEDS ORDERED: VANCOMYCIN HCL 1,000 MG, VIAL MATE ADAPTER 1 EACH in NS 250 ML IV SCH (10:00)
[2021-04-15] MEDS ORDERED: VANCOMYCIN HCL 750 MG, VIAL MATE ADAPTER 1 EACH in NS 250 ML IV SCH (10:00)
[2021-04-15 10:35] VITALS: BP 123/56
[2021-04-15 12:00] VITALS: BP 127/58
[2021-04-15 15:56] VITALS: BP 119/56
[2021-04-15 20:00] VITALS: BP 140/63
[2021-04-16] VITALS (22 sets, daily range): BP systolic 132–167; BP diastolic 60–97; O2SAT 86–98
[2021-04-16 01:45] LABS: CALCIUM LEVEL 7.1 MG/DL (8.8-10.2); CREATININE FOR GFR 4.13 MG/DL (0.55-1.30); GLOMERULAR FILTRATION RATE 10.9 (>32); POTASSIUM SERUM 4.8 MEQ/L (3.5-5.1)
[2021-04-16] MEDS: NS 1,000 ML IV SCH (03:21)
[2021-04-16] MEDS: PIPERACILLIN/TAZOBACTAM SOD 3.375 GM in D5W MINI-BAG PLUS 50 ML IV SCH ×2 (05:29→12:04)
[2021-04-16] MEDS: HEPARIN SOD (PORCINE) 5000UNITS/ML 1ML VIAL/SYRINGE SQ SCH (05:29)
[2021-04-16 05:51] LABS: HEMATOCRIT 21.6 % (36.0-47.0); MEAN CORPUSCULAR HGB CONC 31.5 g/dl (32.0-36.5); PLATELET COUNT, AUTOMATED 115 10^3/uL (150-450); WHITE BLOOD COUNT 6.5 10^3/uL (4.0-10.0)
[2021-04-16 05:56] LABS: HEMOGLOBIN 6.8 g/dl (12.0-15.5)
[2021-04-16 06:14] LABS: CREATININE FOR GFR 4.28 MG/DL (0.55-1.30); GLOMERULAR FILTRATION RATE 10.4 (>32); POTASSIUM SERUM 4.8 MEQ/L (3.5-5.1); VANCOMYCIN RANDOM 23.5 UG/ML
[2021-04-16] MEDS: PANTOPRAZOLE 40MG VIAL (C9113 PER 1) IV SCH (08:27)
[2021-04-16] MEDS: NS 0.45% 1,000 ML IV SCH ×2 (08:27→15:10)
[2021-04-16] MEDS ORDERED: ACETAMINOPHEN *IV* 1,000 MG in IV 1 EA IV ONE (09:00)
[2021-04-16] MEDS ORDERED: VANCOMYCIN HCL 500 MG in D5W MINI-BAG PLUS 100 ML IV SCH (10:00)
[2021-04-16 11:03] LABS: ABG BASE EXCESS -6.2 (-2.0-2.0); ABG HCO3 18.8 MEQ/L (22.0-26.0); ABG O2 SATURATION 95.9 % (95.0-99.0); ABG PARTIAL PRESSURE O2 93.7 mmHg (75.0-100.0); ABG STANDARD HCO3 19.3 MEQ/L (22.0-26.0); ABG TOTAL CO2 19.9 MEQ/L (23.0-31.0); ABG pH (ARTERIAL) 7.348 UNITS (7.350-7.450)
[2021-04-16] MEDS ORDERED: LACTULOSE 20 GM/30 ML SYRUP UD PR ONE (12:20)
[2021-04-16 15:40] LABS: EOS % 0.1 % (0.0-3.0); LYMPH # 0.7 10^3/uL (1.5-5.0); MEAN CORPUSCULAR HEMOGLOBIN 32.1 pg (27.0-33.0); MEAN CORPUSCULAR HGB CONC 30.8 g/dl (32.0-36.5); MEAN CORPUSCULAR VOLUME 104.4 fl (80.0-96.0); MONO # 1.3 10^3/uL (0.0-0.8); MONO % 18.6 % (2.0-8.0); NEUTROPHILS # 4.7 10^3/uL (1.5-8.5); NEUTROPHILS % 69.2 % (36.0-66.0); PLATELET COUNT, AUTOMATED 101 10^3/uL (150-450); RED BLOOD COUNT 2.49 10^6/uL (4.00-5.40); WHITE BLOOD COUNT 6.8 10^3/uL (4.0-10.0)
[2021-04-16 15:51] LABS: ALBUMIN 2.2 GM/DL (3.2-5.2); BILIRUBIN,TOTAL 0.6 MG/DL (0.2-1.0); CALCIUM LEVEL 7.4 MG/DL (8.8-10.2); CREATININE FOR GFR 4.82 MG/DL (0.55-1.30); GLOMERULAR FILTRATION RATE 9.1 (>32); POTASSIUM SERUM 4.4 MEQ/L (3.5-5.1); TOTAL PROTEIN 5.4 GM/DL (6.4-8.2)
[2021-04-16 16:01] LABS: MAGNESIUM LEVEL 1.9 MG/DL (1.7-2.2)
[2021-04-16] MEDS ORDERED: ONDANSETRON 4 MG ORAL DISINTEGRATING TAB PO PRN (17:40)
[2021-04-16] MEDS ORDERED: FLEET ENEMA PR PRN (17:40)
[2021-04-16] MEDS ORDERED: BISACODYL 10 MG SUPP PR PRN (17:40)
[2021-04-16] MEDS ORDERED: MORPHINE 2 MG/ML 1ML VIAL (J2270) IV PRN (17:40)
[2021-04-16] MEDS ORDERED: HYOSCYAMINE SULFATE 0.125 MG SUBL TABLET PO PRN (17:40)
[2021-04-16] MEDS ORDERED: LORazepam 2 MG/ML VIAL IV PRN (17:40)
[2021-04-16] MEDS ORDERED: ATROPINE SULFATE 1% OP SOLN 2 ML BTL SL PRN (17:40)
[2021-04-16] MEDS ORDERED: ACETAMINOPHEN 650 MG SUPP PR PRN (17:40)
[2021-04-16] MEDS ORDERED: LORazepam 1 MG TAB PO PRN (17:40)
[2021-04-16] MEDS ORDERED: SCOPOLAMINE 1MG TRANSDERMAL PATCH TOP PRN (17:40)
[2021-04-17] MEDS: CHLORASEPTIC SPRAY MT PRN ×2 (01:11→05:10)
[2021-04-17] MEDS: MORPHINE 10MG/0.5ML ORAL CONCENTRATE SOLUTION U/D SL PRN ×2 (14:28→16:27)
[2021-04-17] MEDS: MORPHINE 4 MG/ML 1ML VIAL/SYRINGE (J2270) IV PRN (21:12)
[2021-04-18] MEDS: MORPHINE 4 MG/ML 1ML VIAL/SYRINGE (J2270) IV PRN ×5 (01:36→18:17)
== END 2021-04-19 10:45 | disposition expired | DRG 388 ==
LOC: M ED 23:52 → M ED INP 04-14 04:49 → ENRESERV 04-14 06:47 → M MSPAV 04-14 11:47 → M PCU 04-15 10:05 → M MS5PR 04-17 09:20
PROVIDERS: ADMIT Family Medicine; ATTEND Internal Medicine
PROC: 30233N1 Transfusion of Nonautologous Red Blood Cells into Peripheral Vein, Percutaneous Approach (ICD-10-PCS; principal; 2021-04-16)
DX: K56.50 Intestinal adhesions [bands], unspecified as to partial versus complete obstruction (principal); A41.9 Sepsis, unspecified organism; G93.41 Metabolic encephalopathy; N17.0 Acute kidney failure with tubular necrosis; J96.01 Acute respiratory failure with hypoxia; C95.90 Leukemia, unspecified not having achieved remission; E72.20 Disorder of urea cycle metabolism, unspecified; J98.11 Atelectasis; K92.2 Gastrointestinal hemorrhage, unspecified; D62 Acute posthemorrhagic anemia; I10 Essential (primary) hypertension; I16.0 Hypertensive urgency; Z51.5 Encounter for palliative care; Z79.899 Other long term (current) drug therapy; Z85.41 Personal history of malignant neoplasm of cervix uteri; Z98.41 Cataract extraction status, right eye; Z86.73 Personal history of transient ischemic attack (TIA), and cerebral infarction without residual deficits